=== PATIENT | male | born 2000 | race Caucasian/White ===

== ENCOUNTER 2024-03-14 14:02 | Emergency (ER) | payer OTHER, SELFPAY ==
[2024-03-14 14:27] VITALS: BP 139/78; PULSE 88; RESP 20; TEMP 37.1; O2SAT 99
--- NOTE | 2024-03-14 14:31 | ED.URI ---
HPI - URI/Sore Throat General Chief Complaint: Upper Respiratory Infection Stated Complaint: cough,congestion Time Seen by Provider: 03/14/24 14:48 Source: patient, RN notes reviewed and old records reviewed Mode of arrival: ambulatory Limitations: no limitations History of Present Illness HPI Narrative: 23-year-old male presents to the [facility] with complaints of runny nose, cough and congestion. Denies fevers, chest pain, shortness of breath. Patient reports symptoms started 6 days ago. Has taken Mucinex Onset (ago): day(s) (6) Treatments prior to arrival: cold medicine (Mucinex) Related Data Home Medications ?Medication ?Instructions ?Recorded ?Confirmed ?Last Taken ?Type amitriptyline 10 mg tablet 10 mg PO DAILY 03/14/24 Unknown History Allergies Allergy/AdvReac Type Severity Reaction Status Date / Time diphenhydramine (From AdvReac Intermediate RESTLESS Verified 03/14/24 14:45 Benadryl) Review of Systems Review of Systems: All systems reviewed & are unremarkable except as noted in HPI and below Constitutional: Constitutional: Reports no additional constitutional complaints ENT: Reports as per HPI and Reports nasal discharge Cardiovascular: Cardiovascular: Reports no additional cardiovascular complaints, Denies chest pain and Denies dyspnea Respiratory: Respiratory: Reports as per HPI, Denies chest congestion, Reports cough and Denies dyspnea Musculoskeletal: Musculoskeletal: Reports no additional musculoskeletal complaints Integumentary/Breasts: Skin/Breast: Reports system reviewed and no additional complaints, except as docu PMFSH Comments At the time of my signature, I reviewed and agree with the nursing past medical, surgical, social, and family history. There is no relevant family history pertinent to the patient complaint. Exam Const: General: cooperative, healthy appearing, comfortable, no acute distress, well developed, alert and well nourished Nutritional Appearance: well nourished Orientation/consciousness: patient oriented x3 Limitations: no limitations HENMT: Head: normal to inspection Ears: hearing grossly normal bilaterally, external ears normal, TM's normal bilaterally, EAC's normal, mastoids normal and no periauricular adenopathy Face/Nose/Sinus: Normal external nose present and Nasal discharge present clear bilateral Mouth: Yes Normal oral and palatal mucosa present, Yes lip normal, Yes tongue normal and Yes moist mucous membranes Throat: posterior oropharynx normal, uvula midline, postnasal drainage and no uvular edema Eyes: General: appearance normal, both eyes and all related structures Alignment and Position: alignment normal Neck: Neck: normal visual inspection, full ROM, no lymphadenopathy and no meningeal signs Chest: Chest palpation & inspection: normal inspection of the chest Resp: Effort & Inspection: normal respiratory effort and able to speak in complete sentences Auscultation: clear to auscultation bilaterally, no crackles, no rales, no rhonchi and no wheezes Cardio: Rate: regular rate Skin: General skin exam: normal color and no rashes or lesions noted Neuro: General: patient oriented x3, gait normal, moves all extremities and no meningeal signs Cognition (Neuro): normal cognition Speech: normal speech Gait exam (Neuro): Normal gait present Extrem: General: normal to inspection, full ROM, capillary refill normal and normal gait Psych: Appearance: grossly normal and well kempt Mental Status: mental status grossly normal Speech and movement: Normal speech and movement present and Clear speech present Affect: normal affect Attitude: cooperative Course Course Level of Care: Express Care Visit Vital Signs Vital signs: Vital Signs Temperature 98.8 F 03/14/24 14:27 Pulse Rate 88 03/14/24 14:27 Respiratory Rate 20 03/14/24 14:27 Blood Pressure 139/78 03/14/24 14:27 Pulse Oximetry 99 03/14/24 14:27 Oxygen Delivery Room Air 03/14/24 14:27 Temperature 98.8 F 03/14/24 14:27 Pulse Rate 88 03/14/24 14:27 Respiratory Rate 20 03/14/24 14:27 Blood Pressure 139/78 03/14/24 14:27 Pulse Oximetry 99 03/14/24 14:27 Oxygen Delivery Room Air 03/14/24 14:27 Reviewed MDM - URI/Sore Throat MDM Narrative Medical decision making narrative: Patient sitting exam room. , vitals stable. Patient in no acute distress. Patient presents with 6 day history of URI symptoms. No acute findings other than postnasal drainage noted on exam Patient appropriate for outpatient treatment and follow-up Discharge instructions reviewed with patient, as well as provided in writing per nursing staff. The instructions also include specific and strict return/GO TO THE ER as well as f/u information. All questions have been answered, and the patient deny any further questions with discharge and discharge plan. Some parts of this dictation were generated by voice recognition software and may contain typographical and/or grammatical inaccuracies. Differential Diagnosis Differential diagnosis: Likely upper respiratory infection, otitis media, sinusitis, viral infection and bronchitis Critical Care Time Critical Care Time Critical Care Time: No Discharge Plan Discharge Clinical Impression: Bronchitis, Post-nasal drainage Patient Disposition: Home, Self-Care Condition: Stable Instructions: Antibiotic Form, Acute Bronchitis (ED), Postnasal Drip (DC) Additional Instructions: Your symptoms are likely due to a viral illness, which is not treated with antibiotics. Typically viral infections last 7-10 days, can linger for couple of weeks. It is very important to treat your symptoms. Drink plenty of water, Gatorade, Pedialyte, ice pops or Jell-O. -Alternate Tylenol and Motrin per package directions for fever or pain. You can alternate every 4 hours -Antihistamine medication such as Zyrtec/Claritin/Marii during the day can help improve symptoms. -doing daily nasal irrigations can help relieve pressure your sinuses. Things like a Neti pot -Use Flonase twice a day for 5 days then daily to help reduce the inflammation and dry up your sinuses. -You can also use Mucinex. Be sure to drink plenty of water with this medication at least 8 ounces with every dose and it is important to drink 8 to 10 glasses of water per day. Water is a natural decongestant -Eat and drink things that are easy to swallow, like tea or soup, or popsicles. -Oral rinses such as: Salt water gargles and/or may use topical anesthetic (eg. Chloraseptic spray) or lozenges to relieve dryness or throat pain). -Frequent hand washing or hand medical reception specialist is one of the best ways to prevent spread of infection. -Using a vaporizer or humidifier at night will also help thin secretions and help with coughing up phlegm. -Follow up with primary care provider in 7-10 days if condition is not improving - For new or worsening symptoms go directly to the nearest ER Patient Language: [place] Prescriptions: New prednisone 20 mg tablet See Rx Instructions .Route .COMPLEX Qty: 9 0RF Rx Instructions: Take 40 mg daily for 3 days, 20 mg daily for 3 days No Action amitriptyline 10 mg tablet 10 mg PO DAILY Follow-up/Referrals: Maria Isabel,AVELINA Sequeira [Primary Care Provider] - 1 Week ([facility] follow-up) Stand Alone Forms: Work/School Release IP Time of Disposition: 15:03
--- OUTSIDE RECORDS SUMMARY | 2024-03-21 22:02 | XMS_ITS | Encounter Summary ---
Author Organization [facility] Address [address] [place] [address] Care Team Providers Care Endoscopy Specialty Technician Name Role Phone Laine Sharp MD Primary Care Provider [phone] Encounter Details Date Type Department Care Team (Latest Contact Info) Description 06/08/2019 Travel Social History Tobacco Use Types Packs/Day Years Used Date Smoking Tobacco: Never Smokeless Tobacco: Never Alcohol Use Standard Drinks/Week Comments No 0 (1 standard drink = 0.6 oz pur e alcohol) Sex and Gender Information Value Date Recorded Sex Assigned at Not on file Gender Identity Not on file Sexual Orientation Not on file COVID-19 Exposure Response Date Recorded In the last month, have you been in contact with someone who was confirmed or suspected to have Coronavirus / COVID-19? No / Unsure 06/08/2019 8:44 AM CDT documented as of this encounter Functional Status Functional Status Response Date of Assess ment Is person deaf or have serious hearing difficult y? No 04/10/2019 Is person blind or have serious difficulty seein g? No 04/10/2019 Does person have serious dif ficulty walking/climbing stairs? No 04/10/2019 Does person have difficulty dressing/bathing? No 04/10/2019 Does person have difficulty doing errands alone? No 04/10/2019 Cognitive Status Response Date of Assessm ent Does person have difficulty concentrating/remembering/making decisions? No 04/10/2019 documented as of this encounter Plan of Treatment Not on file documented as of this encounter Visit Diagnoses Not on filedocumented in this encounter Care Teams Endoscopy Specialty Technician Relationship Specialty Start Date End Date Laine Sharp MD [address] [place] [phone] PCP - General Pediatrics 12/31/13 documented as of this encounter
--- OUTSIDE RECORDS SUMMARY | 2024-03-21 22:02 | XMS_ITS | Encounter Summary ---
Author Organization [facility] Address [address] [place] [address] Care Team Providers Care Offender Job Retention Specialist Name Role Phone Laine Sharp MD Primary Care Provider [phone] Reason for Visit * Auth/Cert Specialty Diagnoses / Procedures Referred By Contlan t Referred To Contact Procedures ESOPHAGOGASTRODUODENOSCOPY (EGD) BIOPSY COLONOSCOPY BIOPSY (ANY METHOD) Referral ID Status Reason Start Date Expiration Date Visits Re quested Visits Authorized [id number] 1 1 Encounter Details Date Type Department Care Team (Latest Contact Info) Description 04/10/2019 12:30 PM STRUCTURES TECHNICIAN - 04/10/2019 1:30 PM STRUCTURES TECHNICIAN Surgery [facility] - Endoscopy [address] [place] [phone] Kenzie Cobb MD [address] [place] [id number] ESOPHAGOGASTRODUODENOSCOPY (EGD) BIOPSY Surgery Details Date/Time Status Location OR Service Patient Class Case Class Case Type Trauma Case? 04/10/2019 12:30 PM Posted [facility] Endo 03 Gastroenterology Surgery Day Care Elective > 5 days Panel 1 Procedure LRB Anes Op Region Wound Class Comments ESOPHAGOGASTRODUODENOSCOPY ( EGD) BIOPSY General Clean Contaminated COLONOSCOPY BIOPSY (ANY METHOD) General Clean Contaminated Surgeon Surgeon Role Service Panel Kenzie Cobb MD Primary Gastroenterology 1 Faith Quispe MD Gastroenterology 1 documented in this encounter Social History Tobacco Use Types Packs/Day Years Used Date Smoking Tobacco: Never Smokeless Tobacco: Never Alcohol Use Standard Drinks/Week Comments No 0 (1 standard drink = 0.6 oz pur e alcohol) Sex and Gender Information Value Date Recorded Sex Assigned at Not on file Gender Identity Not on file Sexual Orientation Not on file documented as of this encounter Last Filed Vital Signs Vital Sign Reading Time Taken Comments Blood Pressure 79/43 04/10/2019 1:30 PM STRUCTURES TECHNICIAN Pulse 52 04/10/2019 1:30 PM STRUCTURES TECHNICIAN Temperature 37.2 ??C (99 ??F) 04/10/2019 1:30 PM STRUCTURES TECHNICIAN Respiratory Rate 14 04/10/2019 1:30 PM STRUCTURES TECHNICIAN Oxygen Saturation 97% 04/10/2019 1:30 PM STRUCTURES TECHNICIAN Inhaled Oxygen Concentration - - Weight 69.5 kg (153 lb 3.5 oz) 04/10/2019 11:42 AM STRUCTURES TECHNICIAN Height 171.8 cm (5' 7.64 ) 04/10/2019 11:[address] Body Mass Index 23.55 04/10/2019 11:42 AM STRUCTURES TECHNICIAN documented in this encounter Functional Status Functional Status Response [...] No 04/10/2019 documented as of this encounter Discharge Summaries * Faith Quispe MD - 04/10/2019 1:30 PM CST Images from the original note were not included. 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 Discharge Procedure Orders Why you were hospitalized Order Specific Question Answer Comments Your discharge diagnosis is: Eosinophilic esophagitis [530.13.ICD-9-CM] Procedure information Lavelle had the following procedure performed: Colonoscopy and Esophagogastro duodenoscopy Order Specific Question Answer Comments Your discharge diagnosis is: Eosinophilic esophagitis [530.13.ICD-9-CM] Diet instructions Start light diet today (i.e soup, Jell-O, toast). If no nausea or vomiting, may resume normal diet.In case of nausea or vomiting, reduce diet to fluids low in acid (water, sports drinks, white sodas). As you are able to tolerate the fluids, gradually increase your diet. Activity as tolerated Rest today, and increase activity level tomorrow as tolerated. Recovering after your Uppder Endoscopy -- Lavelle's throat will probably be slightly sore today. This should go away within the next 24 hours. Use throat lozenges or cough drops to help ease the discomfort. -- Lavelle may notice small amounts of blood if he had polyps removed or tissue samples taken for biopsy. Recovering after Colonoscopy -- Lavelle may have some abdominal cramping or bloating. This is caused by the air that was insertedduring the colonoscopy, and should go away shortly after your procedure. -- Lavelle may notice small amounts of blood if he had polyps removed or tissue samples taken for biopsy. Biopsy Results Please allow 10-14 days for biopsy results to be finalized. When to call provider Call if you have questions or concerns, or for any of the following issues: -- increased shortness of breath -- for pain that gets worse or does not get better after taking pain medication(s) as directed -- if you see a lot of bleeding from the incision or IV site -- if the incision or IV site looks infected (red, swollen, warm to the touch, or non-clear, foul-smelling drainage) -- if Lavelle has nausea or vomiting or cannot eat or drink Follow up with provider Follow-Up: Lavelle is a 18 yo M with h/o eosinophilic gastrointestinal disease, previously resolved now with nausea and abdominal pain s/p repeat EGD and Colonoscopy with biopsies. Findings c/w EoE. Mild erythema in stomach and erosions in bulb. Continue PPI. Await pathology results. Faith Quispe M.D. Pediatric Gastroenterology Fellow 04/10/2019 1:30 PM CTURES TECHNICIAN Associated attestation - Kenzie Cobb MD - 04/10/2019 3:54 PM STRUCTURES TECHNICIAN I agree with fellow note. Kenzie Cobb MD documented in this encounter Medications at Time of Discharge Medication Sig Dispensed Refills Start Date End Date esomeprazole (NEXIUM) 40 MG capsule Take 1 capsule by mouth daily before breakfast 30 capsule 5 03/12/2019 fluticasone hfa 220 (FLOVENT HFA) 220 MCG/ACT inhalerIndications:Eos inophilic Esophagitis Take 2 puffs by mouth 2 times daily Swallow 2 puffs twice daily, rinse mouth with small amount of water after. Reasons: Eosinophilic Esophagitis 1 Inhaler 6 05/12/2019 documented as of this encounter H&P Notes * Faith Quispe MD - 04/10/2019 11:31 AM CST Surgical History and Physical Today's Date: 04/10/2019 Lavelle Michael 18 year old male Date of Service: 04/10/2019 Planned Procedure: Upper endoscopy and Colonoscopy with biopsies Indication for Procedure: follow-up Eosinophilic GI disease (EoE and enterocolitis); abdominal painand nausea History of Present Illness Lavelle is a 18 yo male with history of eosinophilic GI disease, previously with normal scopes and resolution of symptoms, who presented with new onset nausea and abdominal pain to GI clinic. He is here for repeat EGD and Colonoscopy with biopsies. Nausea better over past 2 weeks. He is on PPI, but no other therapies. See GI notes for further details. Past Medical History: Diagnosis Date ??? Abdominal pain, diarrhea, emesis 11/09/2011 admitted hosp 3-4 week hx ??? ADHD (attention deficit hyperactivity disorder) on adderall and vyvanse ??? Eosinophilia 11/10/2011 ??? Unspecified asthma dx 2004 exercise induced asthma--uses albuterol prn--last used 06/2011--never hosp last ER visit 2008 Past Surgical History: Procedure Laterality Date ??? BONE MARROW BIOPSY 11/16/2011 Right; BONE MARROW BIOPSY- WAS OK ??? COLONOSCOPY WITH BIOPSY nov 2011 dx with EE/ R/o IBS ??? COLONOSCOPY WITH BIOPSY 05/05/2012 COLONOSCOPY BIOPSY ??? COLONOSCOPY WITH BIOPSY 02/20/2013 COLONOSCOPY BIOPSY ??? COLONOSCOPY WITH BIOPSY 01/22/2014 COLONOSCOPY BIOPSY ??? COLONOSCOPY WITH BIOPSY 11/16/2016 COLONOSCOPY BIOPSY ??? ENDOSCOPY, UPPER 02/20/2013 ENDOSCOPY GI UPPER WITH BIOPSY ??? ENDOSCOPY, UPPER 01/22/2014 ENDOSCOPY GI UPPER WITH BIOPSY ??? ENDOSCOPY, UPPER 10/01/2016 ENDOSCOPY GI UPPER WITH BIOPSY ??? Orchiopexy 11/27/2002 -Dr Beaver ??? [place] EGD FLEX TRANSORAL W BX SNGL OR MULT NOV 2011 dx with EE Family History Problem Relation Name Age of Onset ??? GERD - Gastroesophageal Reflux Disease Father ??? Esophagitis Sister EoE Social History Occupational History ??? Not on file Tobacco Use ??? Smoking status: Never Smoker ??? Smokeless tobacco: Never Used Substance and Sexual Activity ??? Alcohol use: No ??? Drug use: No ??? Sexual activity: Not on file Medications Prior to Admission Medication Sig Dispense Refill ??? esomeprazole (NEXIUM) 40 MG capsule Take 1 capsule by mouth daily before breakfast 30 capsule 5 Allergies Allergen Reactions ??? Other CLEAR TAPE CAUSED IRRITATION. PLEASE USE CLOTH TAPE Review of Systems Negative for respiratory distress, lethargy, vomiting. Exam There were no vitals filed for this visit. General: Healthy, alert, well nourished Head: Normocephalic, atraumatic Eyes: No scleral icterus, no injection Mouth: Moist mucus membranes, no oral ulcers Neck: No lymphadenopathy Heart: Regular rate and rhythm Lungs: Equal breath sounds Abdomen: nondistended Extremities: warm and well perfused, no joint swelling Neuro: No facial asymmetry, normal tone Data Recent Labs Component Name 10/01/16 1400 05/26/12 1524 05/05/12 0841 WBC 6.6 10.6 5.2 HGB 14.6 13.6 14.6 HCT 41.4 38.3 41.3 PLTCOUNT 252 272 250 Recent Labs Component Name 10/01/16 1400 01/09/12 1725 11/15/11 1652 SODIUM 140 138 139 POTASSIUM 4.0 3.7 3.8 CHLORIDE 106 106 109* CO2 24 21 20 BUN 10.5 6.3 5.1* CREATININE 0.89 0.60* 0.50* GLUCOSE 93 84 103 CALCIUM 8.83* 10.07 8.76* No results for input(s): INR in the last 64864 hours. No results for input(s): PTT in the last 78725 hours. 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 Risks, benefits and alternatives discussed with the patient, questions answered. Plan to perform above noted procedure. Faith Quispe M.D. Pediatric Gastroenterology Fellow CTURES TECHNICIAN Associated attestation - Kenzie Cobb MD - 04/10/2019 3:55 PM STRUCTURES TECHNICIAN I agree with fellow note. Kenzie Cobb MD documented in this encounter Plan of Treatment Not on file documented as of this encounter Procedures Procedure Name Priority Date/Time Associated Diagnosis Comments PATHOLOGY TISSUE EXAM (STL) STAT 04/10/2019 12:55 PM STRUCTURES TECHNICIAN Eosinophilic esophagitis HELICOBACTER PYLORI UREASE (STL) STAT 04/10/2019 12:47 PM STRUCTURES TECHNICIAN Eosinophilic gastroenteritis and colitis Eosinophilic esophagitis KS COLONOSCOPY,BIOPSY 04/10/2019 12:38 PM STRUCTURES TECHNICIAN KS EGD FLEX TRANSORAL W BX SNGL OR MULT 04/10/2019 12:38 PM STRUCTURES TECHNICIAN CBC W AUTO DIFFERENTIAL STAT 04/10/2019 12:00 PM STRUCTURES TECHNICIAN Eosinophilic gastroenteritis and colitis Eosinophilic esophagitis COMPREHENSIVE METABOLIC PANEL STAT 04/10/2019 12:00 PM STRUCTURES TECHNICIAN Eosinophilic gastroenteritis and colitis Eosinophilic esophagitis LIPASE BLOOD STAT 04/10/2019 12:00 PM STRUCTURES TECHNICIAN Eosinophilic gastroenteritis and colitis Eosinophilic esophagitis EGD Routine 04/10/2019 11:47 AM STRUCTURES TECHNICIAN Eosinophilic gastroenteritis and colitis Eosinophilic esophagitis ENDOSCOPY, COLON, DIAGNOSTIC Routine 04/10/2019 11:46 AM STRUCTURES TECHNICIAN 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 Case: [id number] ? Authorizing Provider: ??Kenzie Cobb MD ?Collected: ? 04/10/2019 12:55 PM ? Ordering Location: ? [facility] ?Received: ?04/10/2019 02:35 PM ? Pathologist: ? Caridad Otto MD ? Specimens: ?? A) - Duodenal Biopsy ? B) - Stomach Biopsy ? C) - Esophageal Biopsy, distal ? D) - Esophageal Biopsy, mid ? E) - Ileum Terminal ? F) - Colon Biopsy ? G) - Rectosigmoid Biopsy ? H) - Polyp Rectal ? 04/13/2019 5:42 PM STRUCTURES TECHNICIAN [facility] Final Diagnosis Small intestine, duodenum, biopsy (A): - Mild peptic duodenitis - Intact villous and crypt architecture without increased intraepithelial lymphocytes ?? Stomach, biopsy (B): - Mild chronic gastritis - No active inflammation or H. pylori organisms (H&E examination) ?? Esophagus, distal, biopsy (C): - Mild esophagitis with marked increased intraepithelial eosinophils (>50/hpf) Esophagus, mid, biopsy (D): - Mild esophagitis with marked increased intraepithelial eosinophils (>50/hpf) ? Small intestine, terminal ileum, biopsy (E): - No histopathologic abnormality ? Large intestine, colon, biopsy (F): - No histopathologic abnormality ?? Large intestine, rectosigmoid, biopsy (G): - No histopathologic abnormality Large intestine, rectal polyp, biopsy (H): - Hyperplastic polyp 04/13/2019 5:42 PM [facility] Clinical History The patient is a 18-year-old young man with eosinophilic esophagitis who underwent upper endoscopy and colonoscopy. The findings were scattered erosions of the duodenal bulb, scattered gastric erythema, and mild esophageal linear furrows, and a rectal polyp. 04/13/2019 5:42 PM [facility] Gross Description The specimens are received fixed in formalin in eight containers for gross and microscopic examination. All containers are labeled with the patient? s name, Lavelle Michael. Specimen A, duodenal biopsy, consists of four soft, yellow-santizo tissue fragments, 3 mm to 4 mm in greatest dimension. The specimen is submitted in toto as A1. Specimen B, stomach biopsy, consists of two soft, yellow-santizo tissues fragments, 3 mm to 4 mm in greatest dimension. The specimen is submitted in toto as B1. Specimen C, distal esophageal biopsy, consists of two 4 mm soft, allen-pink tissue fragments submitted in toto as C1. Specimen D, mid esophageal biopsy, consists of five soft, allen-white tissue fragments, 1 mm to 3 mm in greatest dimension. The specimen is submitted in toto as D1. Specimen E, terminal ileum, consists of four soft, yellow-santizo tissue fragments, 3 mm to 5 mm in greatest dimension. The specimen is submitted in toto as E1. Specimen F, colon biopsy, consists of eight soft, yellow-santizo tissue fragments, 2 mm to 5 mm in greatest dimension. The specimen is submitted in toto as F1. Specimen G, rectosigmoid biopsy, consists of two soft, pink-santizo tissue fragments, 2 mm and 3 mm in greatest dimension. The specimen is submitted in toto as G1. Specimen H, rectal polyp, consists of two 2 mm soft, yellow-santizo tissue fragments submitted in toto as H1. (CT/na) 04/13/2019 5:42 PM [facility] Microscopic Description 24 H&E slides examined. Microscopic examination substantiates the final diagnosis. 04/13/2019 5:42 PM [facility] Disclaimer The performance characteristics of all immunohistochemical and indirect immunofluorescence stains (if any) cited in this report were determined by the Histopathology Laboratory of [facility] in compliance with Clinical Laboratory Improvement Amendments of 1988 (CLIA'88) regulations. Some of these tests rely on the use of analyte-specific reagents and are subject to specific labeling requirements by the U.S. Food and Drug Administration (FDA). Such tests were developed by the [facility] of [facility] and have not been cleared or approved by the FDA. The FDA has determined that such clearance or approval is not necessary. These tests are used for clinical purposes and should not be regarded as investigational or for research. This case has been personally reviewed and interpreted by the attending (teaching) pathologist. The interpretation of this case is performed by [facility]ology at [facility], [address] [place] [id number]. 04/13/2019 5:42 PM [facility] Embedded Images 04/13/2019 5:42 PM [facility] Pathology/Cytology DUODENAL BIOPSY SPECIMEN / Unknown 04/10/2019 12:55 PM STRUCTURES TECHNICIAN 04/10/2019 2:35 PM STRUCTURES TECHNICIAN Miscellaneous samples (specimen) BIOPSY OF STOMACH / Unknown 04/10/2019 12:55 PM STRUCTURES TECHNICIAN 04/10/2019 2:35 PM STRUCTURES TECHNICIAN Miscellaneous samples (specimen) ESOPHAGEAL BIOPSY SPECIMEN / Unknown 04/10/2019 12:55 PM STRUCTURES TECHNICIAN 04/10/2019 2:35 PM STRUCTURES TECHNICIAN Miscellaneous samples (specimen) ESOPHAGEAL BIOPSY SPECIMEN / Unknown 04/10/2019 1:01 PM STRUCTURES TECHNICIAN 04/10/2019 2:35 PM STRUCTURES TECHNICIAN Miscellaneous samples (specimen) TERMINAL ILEUM RESECTION SPECIMEN / Unknown 04/10/2019 1:18 PM STRUCTURES TECHNICIAN 04/10/2019 2:35 PM STRUCTURES TECHNICIAN Miscellaneous samples (specimen) COLONIC BIOPSY SPECIMEN / Unknown 04/10/2019 1:18 PM STRUCTURES TECHNICIAN 04/10/2019 2:35 PM STRUCTURES TECHNICIAN Miscellaneous samples (specimen) RECTOSIGMOID STRUCTURE / Unknown 04/10/2019 1:22 PM STRUCTURES TECHNICIAN 04/10/2019 2:35 PM STRUCTURES TECHNICIAN Miscellaneous samples (specimen) RECTAL POLYP / Unknown 04/10/2019 1:23 PM STRUCTURES TECHNICIAN 04/10/2019 2:35 PM STRUCTURES TECHNICIAN Kenzie Cobb MD LAB - PATHOLOGY/CYTO LOGY ORDERABLES Performing Organization Address [facility] Co de Phone Number [facility] [address] [place] [address] [facility] [address] [place], [place] [address] [phone] * HELICOBACTER PYLORI UREASE (STL) (04/10/2019 12:47 PM STRUCTURES TECHNICIAN) Helicobacter pylori Urease Initial Negative Negative 04/11/2019 1:33 PM STRUCTURES TECHNICIAN [facility] Helicobacter pylori Urease Final Negative Negative 04/11/2019 1:33 PM STRUCTURES TECHNICIAN [facility] Comment:This is an appended report. These results have been appended to a previously preliminary verified report. Microbiology GASTRIC ANTRAL BIOPSY SPECIMEN / Unknown Collection / Unknown 04/10/2019 12:47 PM STRUCTURES TECHNICIAN 04/10/2019 1:11 PM STRUCTURES TECHNICIAN Faith Quispe MD LAB - MICROBIOLOG Y ORDERABLES Performing Organization Address [facility] Co de Phone Number [facility] [address] [place] [address] * LIPASE BLOOD (04/10/2019 12:00 PM STRUCTURES TECHNICIAN) Lipase 16 10 - 220 U/L 04/10/2019 12:56 PM STRUCTURES TECHNICIAN [facility] Blood BLOOD SPECIMEN / Unknown Venipuncture / Unknown 04/10/2019 12:00 PM STRUCTURES TECHNICIAN 04/10/2019 12:20 PM STRUCTURES TECHNICIAN Faith Quispe MD LAB - CHEMISTRY O RDERABLES Performing Organization Address [facility] Co de Phone Number [facility] [address] [place] [phone] * (ABNORMAL) COMPREHENSIVE METABOLIC PANEL (04/10/2019 12:00 PM STRUCTURES TECHNICIAN) Glucose 77 70 - 105 mg/dL 04/10/2019 12:56 PM STRUCTURES TECHNICIAN [facility] Sodium 138 136 - 145 mmol/L 04/10/2019 12:56 PM [facility] Potassium 4.3 3.5 - 5.1 mmol/L 04/10/2019 12:56 PM [facility] Chloride 105 98 - 107 mmol/L 04/10/2019 12:56 PM [facility] CO2 25 22 - 29 mmol/L 04/10/2019 12:56 PM [facility] Calcium 10.13 9.08 - 10.48 mg/dL 04/10/2019 12:56 PM [facility] Anion Gap 8 5 - 20 mmol/L 04/10/2019 12:56 PM [facility] BUN 14.2 5.3 - 18.7 mg/dL 04/10/2019 12:56 PM [facility] Creatinine 1.15(H) 0.61 - 1.07 mg/dL 04/10/2019 12:56 PM [facility] Alkaline Phosphatase 62 39 - 139 U/L 04/10/2019 12:56 PM [facility] ALT 17 6 - 46 U/L 04/10/2019 12:56 PM [facility] AST 19 8 - 42 U/L 04/10/2019 12:56 PM [facility] Protein Total 7.6 6.3 - 8.2 gm/dL 04/10/2019 12:56 PM [facility] Albumin 4.8 3.3 - 4.9 gm/dL 04/10/2019 12:56 PM [facility] Bilirubin Total 1.1 0.3 - 1.2 mg/dL 04/10/2019 12:56 PM [facility] eGFR by MDRD >60 >60 mL/min/1.7 3m2 04/10/2019 12:56 PM [facility] eGFR by MDRD >60 >60 mL/min/1.7 3m2 04/10/2019 12:56 PM [facility] Blood BLOOD SPECIMEN / Unknown Venipuncture / Unknown 04/10/2019 12:00 PM [facility] 04/10/2019 12:20 PM [facility] Faith Quispe MD LAB - CHEMISTRY O RDERABLES Performing Organization Address City/State/[facility] Co de Phone Number [facility] [address] [place] [address] * (ABNORMAL) CBC W AUTO DIFFERENTIAL (04/10/2019 12:00 PM [facility]) WBC 5.6 4.4 - 10.7 x10E9/L 04/10/2019 12:26 PM [facility] WBC Corrected 04/10/2019 12:26 PM [facility] RBC 5.60(H) 3.80 - 5.40 x10E12/L 04/10/2019 12:26 PM [facility] Hemoglobin 17.0 12.0 - 17.6 gm/dL 04/10/2019 12:26 PM [facility] Hematocrit 49.2 35.2 - 51.7 % 04/10/2019 12:26 PM [facility] MCV 87.9 80.7 - 98.3 fl 04/10/2019 12:26 PM [facility] MCH 30.4 26.7 - 34.0 pg 04/10/2019 12:26 PM [facility] MCHC 34.6 30.8 - 35.9 gm/dL 04/10/2019 12:26 PM [facility] Platelet Count 254 153 - 416 x10E9/L 04/10/2019 12:26 PM [facility] RDW-CV 12.0(L) 12.1 - 14.9 % 04/10/2019 12:26 PM [facility] MPV 9.6 9.4 - 12.9 fl 04/10/2019 12:26 PM [facility] Neutrophils % 47.8 44.0 - 73.0 % 04/10/2019 12:26 PM [facility] Lymphocytes % 32.4 20.0 - 43.0 % 04/10/2019 12:26 PM [facility] Monocytes % 6.4 5.0 - 13.0 % 04/10/2019 12:26 PM [facility] Eosinophils % 12.7(H) 0.0 - 6.0 % 04/10/2019 12:26 PM [facility] Basophils % 0.5 0.0 - 2.0 % 04/10/2019 12:26 PM [facility] Immature Granulocytes 0.2 0 - 1 % 04/10/2019 12:26 PM [facility] Neutrophil Absolute 2.67 2.01 - 7.14 x10E9/L 04/10/2019 12:26 PM [facility] Lymphocytes Absolute 1.81 1.07 - 3.94 x10E9/L 04/10/2019 12:26 PM [facility] Monocytes Absolute 0.36 0.26 - 1.07 x10E9/L 04/10/2019 12:26 PM [facility] Eosinophils Absolute 0.71(H) 0 - 0.47 x10E9/L 04/10/2019 12:26 PM [facility] Basophils Absolute 0.03 0 - 0.08 x10E9/L 04/10/2019 12:26 PM [facility] Immature Granulocytes Absolute 0.01 0.00 - 0.06 x10E9/L 04/10/2019 12:26 PM [facility] nRBC Auto 0 /100 WBC 04/10/2019 12:26 PM [facility] Blood BLOOD SPECIMEN / Unknown Venipuncture / Unknown 04/10/2019 12:00 PM STRUCTURES TECHNICIAN 04/10/2019 12:20 PM [facility] Faith Quispe MD LAB - HEMATOLOGY ORDERABLES Performing Organization Address [facility]/State/[facility] Co de Phone Number [facility] [place] [address] * EGD (04/10/2019 11:47 AM STRUCTURES TECHNICIAN) Report Endoscopy POC _ Patient Name: Lavelle Wells ? Date of : 2000 ?Admit Type: Outpatient Age: 18 ? Gender: Male Race: White ? Attending MD: Kenzie Cobb , Order #: [id number] ? _ Procedure: ? Upper GI endoscopy Indications: ? Follow-up of eosinophilic esophagitis, Follow-up of ? eosinophilic gastroenteritis, Nausea Providers: ? Kenzie Cobb Referring MD: ?Laine Sharp MD Medicines: ? Monitored Anesthesia Care Complications: ? No immediate complications. _ Procedure: ? After obtaining informed consent, the endoscope was passed ? under direct vision. Throughout the procedure, the ? patient's blood pressure, pulse, and oxygen saturations ? were monitored continuously. The Endoscope was introduced ? through the mouth, and advanced to the third part of ? duodenum. The upper GI endoscopy was accomplished without ? difficulty. The patient tolerated the procedure well. Findings: ? Mucosal changes including longitudinal furrows and congestion (edema) ? were found in the entire esophagus. Biopsies were taken with a cold ? forceps for histology. ? Patchy mildly erythematous mucosa without bleeding was found in the ? entire examined stomach. Biopsies were taken with a cold forceps for ? histology. Biopsies were taken with a cold forceps for Helicobacter ? pylori testing using a rapid urease test. ? A few localized erosions without bleeding were found in the duodenal ? bulb. Biopsies were taken with a cold forceps for histology. ? The exam of the duodenum was otherwise normal. Impression: ?- Esophageal mucosal changes consistent with eosinophilic ? esophagitis. Biopsied. ? - Erythematous mucosa in the stomach. Biopsied. ? - Erosive duodenopathy without bleeding. Biopsied. Recommendation: ?- Await pathology results. ? - Discharge patient to home (with parent). ? - Advance diet as tolerated. ? - Continue present medications. ? - Colonoscopy today ? Procedure Code(s): ? --- Professional --- ? 66704, Esophagogastroduod enoscopy, flexible, transoral; with biopsy, ? single or multiple ? --- Technical --- ? 52589, Esophagogastroduod enoscopy, flexible, transoral; with biopsy, ? single or multiple Diagnosis Code(s): ? --- Professional --- ? K22.8, Other specified diseases of esophagus ? K31.89, Other diseases of stomach and duodenum ? K20.0, Eosinophilic esophagitis ? K52.81, Eosinophilic gastritis or gastroenteritis ? R11.0, Nausea ? --- Technical --- ? K22.8, Other specified diseases of esophagus ? K31.89, Other diseases of stomach and duodenum ? K20.0, Eosinophilic esophagitis ? K52.81, Eosinophilic gastritis or gastroenteritis ? R11.0, Nausea CPT copyright 2017 [employer]. All rights reserved. The codes documented in this report are preliminary and upon calculus tutor review may be revised to meet current compliance requirements. Dr. Kenzie Cobb Kenzie Cobb, 04/10/2019 1:59:08 PM This report has been signed electronically. Number of Addenda: 0 Note Initiated On: 04/07/2019 11:47 AM Procedure Date: ? 04/10/2019 11:47:00 AM ? This report has been signed electronically. [facility] 04/10/2019 11:4 7 AM STRUCTURES TECHNICIAN Faith Quispe MD GI PROCEDURE RICHIE ROBINS [facility] [address] [facility] [place] [address] * ENDOSCOPY, COLON, DIAGNOSTIC (04/10/2019 11:46 AM STRUCTURES TECHNICIAN) Report Endoscopy POC _ Patient Name: Lavelle Wells ? Date of : 2000 ?Admit Type: Outpatient Age: 18 ? Gender: Male Race: White ? Attending MD: Kenzie Cobb , Order #: [id number] ? _ Procedure: ? Colonoscopy Indications: ? 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 Kenzie Cobb MD (attending); Faith Quispe MD ? (fellow) Referring MD: ?Laine Sharp MD Medicines: ? Monitored Anesthesia Care Complications: ? No immediate complications. _ Procedure: ? After I obtained informed consent, the scope was passed ? under direct vision. Throughout the procedure, the ? patient's blood pressure, pulse, and oxygen saturations ? were monitored continuously. The Colonoscope was ? introduced through the anus and advanced to the terminal ? ileum. The colonoscopy was performed without difficulty. ? The patient tolerated the procedure well. The quality of ? the bowel preparation was fair. Findings: ? The perianal and digital rectal examinations were normal. ? The colon (entire examined portion) appeared normal. Biopsies were taken ? with a cold forceps for histology. ? The terminal ileum appeared normal. Biopsies were taken with a cold ? forceps for histology. ? A diminutive polyp was found in the rectum. The polyp was sessile. ? Biopsies were taken with a cold forceps for histology. Impression: ?- Preparation of the colon was fair. ? - The entire examined colon is normal. Biopsied. ? - The examined portion of the ileum was normal. Biopsied. Recommendation: ?- Discharge patient to home (with parent). ? - Advance diet as tolerated. ? - Continue present medications. ? - Await pathology results. ? Procedure Code(s): ? --- Professional --- ? 72976, Colonoscopy, flexible; with biopsy, single or multiple ? --- Technical --- ? 48163, Colonoscopy, flexible; with biopsy, single or multiple Diagnosis Code(s): ? --- Professional --- ? R10.84, Generalized abdominal pain ? K52.9, Noninfective gastroenteritis and colitis, unspecified ? --- Technical --- ? R10.84, Generalized abdominal pain ? K52.9, Noninfective gastroenteritis and colitis, unspecified CPT copyright 2017 [employer]. All rights reserved. The codes documented in this report are preliminary and upon calculus tutor review may be revised to meet current compliance requirements. Dr. Kenzie Cobb Kenzie Cobb, 04/10/2019 1:59:34 PM This report has been signed electronically. Number of Addenda: 0 Note Initiated On: 04/07/2019 11:46 AM Procedure Date: ? 04/10/2019 11:46:00 AM ? This report has been signed electronically. [facility] 04/10/2019 11:4 6 AM STRUCTURES TECHNICIAN Faith Quispe MD GI PROCEDURE [facility] ROBINS [facility] [address] [place] [address] documented in this encounter Visit Diagnoses Not on filedocumented in this encounter Administered Medications Inactive Administered Medications - up to 3 most recent administrations Medication Order MAR Action Action Date Dose Rate Site acetaminophen (TYLENOL) tablet 650 mg 650 mg, Oral, EVERY 6 HOURS PRN, Mild Pain, Starting on Sat04/10/19 at 1341, Until Sat04/10/19 at 1543, PACU diphenhydrAMINE (BENADRYL) injection 12.5 mg 12.5 mg, Intravenous, EVERY 6 HOURS PRN, Itching, Nausea/Vomiting, Starting on Sat04/10/19 at 1341, Until Sat04/10/19 at 1543, Max dose: 50 mg, PACU isolyte-S pH 7.4 infusion at 75 mL/hr, Intravenous, CONTINUOUS, Starting on Sat04/10/19 at 1230, Until Sat04/10/19 at 1543 $ New Bag/Syringe 04/10/2019 12:15 PM STRUCTURES TECHNICIAN 75 mL/hr isolyte-S pH 7.4 infusion at 100 mL/hr, Intravenous, POST-OP CONTINUOUS, Starting on Sat04/10/19 at 1345, Until Sat04/10/19 at 1543, PACU $ New Bag/Syringe 04/10/2019 1:50 PM STRUCTURES TECHNICIAN 100 mL/hr *Current Bag - New Order 04/10/2019 1:30 PM STRUCTURES TECHNICIAN 100 mL/hr documented in this encounter Active and Recently Administered Medications Times are shown in STRUCTURES TECHNICIAN. Continuous Medication Order 04/08/2019 04/09/2019 04/10/2019 isolyte-S pH 7.4 infusion at 75 mL/hr, Intravenous, CONTINUOUS, Starting on Sat04/10/19 at 1230, Until Sat04/10/19 at 1543 1215 ($ New Bag/Syri nge - Provider: Edel Munoz RN) isolyte-S pH 7.4 infusion at 100 mL/hr, Intravenous, POST-OP CONTINUOUS, Starting on Sat04/10/19 at 1345, Until Sat04/10/19 at 1543, PACU 1330 (*Current Bag - New Order - Provider: Kathleen Queen RN)1350 ($ New Bag/Syringe - Provider: Kathleen Queen, MARGARET)1405 (Stopped - Provider: Kathleen Queen RN) PRN Medication Order 04/08/2019 04/09/2019 04/10/2019 acetaminophen (TYLENOL) tablet 650 mg 650 mg, Oral, EVERY 6 HOURS PRN, Mild Pain, Starting on Sat04/10/19 at 1341, Until Sat04/10/19 at 1543, PACU diphenhydrAMINE (BENADRYL) injection 12.5 mg 12.5 mg, Intravenous, EVERY 6 HOURS PRN, Itching, Nausea/Vomiting, Starting on Sat04/10/19 at 1341, Until Sat04/10/19 at 1543, Max dose: 50 mg, PACU documented in this encounter Care Teams Offender Job Retention Specialist Relationship Specialty Start Date End Date Laine Sharp MD [address] [address] PCP - General Pediatrics 12/31/13 documented as of this encounter
--- OUTSIDE RECORDS SUMMARY | 2024-03-21 22:02 | XMS_ITS | Patient Health Summary ---
Author Organization [facility] Address [address] [place] [address] Care Team Providers Care Project Coordinator Name Role Phone Laine Sharp MD Primary Care Provider [phone] Note from [facility],non-owned Affiliates and Associated Physician Practices is amultiple site organization consisting of ambulatory clinics and hospital sitesin [place], [place], [place] and [place]. This disclosure is being madepursuant to the Care Everywhere program and may not contain all information available regarding this patient. Last updated 17.[facility] Allergies * Other(CLEAR TAPE CAUSED IRRITATION. PLEASE USE CLOTH TAPE) * Eggs(Other),Inactive * Milk Protein,Inactive * Peanut-Derived,Inactive * Wheat,Inactive Medications * Be aware that medications may not be up to date on this document. Alwaysverify current medications with the patient. * esomeprazole (NEXIUM) 40 MG capsule(Started 03/12/2019) Take 1 capsule by mouth daily before breakfast 5 refills by 03/11/2020 * fluticasone hfa 220 (FLOVENT HFA) 220 MCG/ACT inhaler(Started 05/12/2019) Take 2 puffs by mouth 2 times daily Swallow 2 puffs twice daily, rinse mouth with small amount of water after. Reasons: Eosinophilic Esophagitis 6 refills by 05/11/2020 Active Problems Problem Noted Date Diagnosed Date Abnormal weight loss 11/16/2016 Rectal polyp 11/16/2016 Eczema 02/12/2012 Allergic rhinitis 02/12/2012 Food allergy 02/12/2012 Eosinophilia 11/10/2011 EE (eosinophilic esophagitis ) and Eosinophilic Enterocolitis 11/09/2011 ADHD (attention deficit hyperactivity disorder) 11/09/2011 Resolved Problems Problem Noted Date Diagnosed Date Resolved Date History of asthma 10/17/2016 10/17/2016 Flushing 11/13/2011 02/12/2012 Social History Tobacco Use Types Packs/Day Years Used Date Smoking Tobacco: Never Smokeless Tobacco: Never Alcohol Use Standard Drinks/Week Comments No 0 (1 standard drink = 0.6 oz pur e alcohol) Sex and Gender Information Value Date Recorded Sex Assigned at Not on file Gender Identity Not on file Sexual Orientation Not on file Last Filed Vital Signs Vital Sign Reading Time Taken Comments Blood Pressure 110/64 04/10/2019 2:15 PM SUPPORT SERVICES MANAGER Pulse 64 04/10/2019 2:00 PM SUPPORT SERVICES MANAGER Temperature 37.2 ??C (99 ??F) 04/10/2019 1:30 PM SUPPORT SERVICES MANAGER Respiratory Rate 16 04/10/2019 2:15 PM SUPPORT SERVICES MANAGER Oxygen Saturation 98% 04/10/2019 2:15 PM SUPPORT SERVICES MANAGER Inhaled Oxygen Concentration 100% 01/22/2014 1 0:13 AM SUPPORT SERVICES MANAGER Weight 69.5 kg (153 lb 3.5 oz) 04/10/2019 11:42 AM SUPPORT SERVICES MANAGER Height 171.8 cm (5' 7.64 ) 04/10/2019 11:[address] Body Mass Index 23.55 04/10/2019 11:42 AM SUPPORT SERVICES MANAGER Procedures * PATHOLOGY TISSUE EXAM (STL)(Performed 04/10/2019) Performed for Eosinophilic esophagitis * HELICOBACTER PYLORI UREASE (STL)(Performed 04/10/2019) Performed for Eosinophilic gastroenteritis and colitis, Eosinophilic esophagitis * NV COLONOSCOPY,BIOPSY(Performed 04/10/2019) * NV EGD FLEX TRANSORAL W BX SNGL OR MULT(Performed 04/10/2019) * LIPASE BLOOD(Performed 04/10/2019) Performed for Eosinophilic gastroenteritis and colitis, Eosinophilic esophagitis * COMPREHENSIVE METABOLIC PANEL(Performed 04/10/2019) Performed for Eosinophilic gastroenteritis and colitis, Eosinophilic esophagitis * CBC W AUTO DIFFERENTIAL(Performed 04/10/2019) Performed for Eosinophilic gastroenteritis and colitis, Eosinophilic esophagitis * EGD(Performed 04/10/2019) Performed for Eosinophilic gastroenteritis and colitis, Eosinophilic esophagitis * ENDOSCOPY, COLON, DIAGNOSTIC(Performed 04/10/2019) Performed for Eosinophilic gastroenteritis and colitis, Eosinophilic esophagitis * PATHOLOGY TISSUE EXAM (STL)(Performed 11/16/2016) Performed for Abdominal pain, unspecified location * COLONOSCOPY BIOPSY (ANY METHOD)(Performed 11/16/2016) Performed for Abdominal pain, unspecified location * ENDOSCOPY, COLON, DIAGNOSTIC(Performed 11/16/2016) Performed for Eosinophilic colitis * COMPREHENSIVE METABOLIC PANEL(Performed 10/01/2016) Performed for EE (eosinophilic esophagitis) * CBC W AUTO DIFFERENTIAL(Performed 10/01/2016) Performed for EE (eosinophilic esophagitis) * HELICOBACTER PYLORI UREASE (STL)(Performed 10/01/2016) Performed for EE (eosinophilic esophagitis) * PATHOLOGY TISSUE EXAM (STL)(Performed 10/01/2016) Performed for EE (eosinophilic esophagitis) * ESOPHAGOGASTRODUODENOSCOPY (EGD) BIOPSY(Performed 10/01/2016) Performed for EE (eosinophilic esophagitis) * EGD(Performed 10/01/2016) Performed for EE (eosinophilic esophagitis) and Eosinophilic Enterocolitis * ESOPHAGOGASTRODUODENOSCOPY (EGD) BIOPSY(Performed 01/22/2014) Performed for Abdominal pain, unspecified site * COLONOSCOPY BIOPSY (ANY METHOD)(Performed 01/22/2014) Performed for Abdominal pain, unspecified site * PATHOLOGY TISSUE EXAM (STL)(Performed 01/22/2014) * EGD(Performed 01/22/2014) Performed for EE (eosinophilic esophagitis) and Eosinophilic Enterocolitis, Eosinophilia * ENDOSCOPY, COLON, DIAGNOSTIC(Performed 01/22/2014) Performed for EE (eosinophilic esophagitis) and Eosinophilic Enterocolitis, Eosinophilia * PATHOLOGY/CYTOLOGY REPORT ORDER(Performed 02/24/2013) * ESOPHAGOGASTRODUODENOSCOPY (EGD) BIOPSY(Performed 02/20/2013) Performed for EE (eosinophilic esophagitis) * COLONOSCOPY BIOPSY (ANY METHOD)(Performed 02/20/2013) Performed for EE (eosinophilic esophagitis) * PATHOLOGY TISSUE EXAM (STL)(Performed 02/20/2013) Performed for Diarrhea, Abdominal pain, generalized, EE (eosinophilic esophagitis) and EosinophilicEnterocolitis, ADHD (attention deficit hyperactivity disorder), Eosinophilia, Eczema, Allergic rhinitis, Food allergy * ENDOSCOPY, COLON, DIAGNOSTIC(Performed 02/20/2013) Performed for Diarrhea, Abdominal pain, generalized * EGD(Performed 02/20/2013) Performed for Diarrhea, Abdominal pain, generalized * TRANSFERRIN(Performed 05/26/2012) Performed for Eosinophilia * IRON + TIBC PANEL(Performed 05/26/2012) Performed for Eosinophilia * DIFFERENTIAL MANUAL(Performed 05/26/2012) Performed for Eosinophilia * ERYTHROCYTE SEDIMENTATION RATE(Performed 05/26/2012) Performed for Eosinophilia * C-REACTIVE PROTEIN(Performed 05/26/2012) Performed for Eosinophilia * LDH BLOOD(Performed 05/26/2012) Performed for Eosinophilia * URIC ACID BLOOD(Performed 05/26/2012) Performed for Eosinophilia * FERRITIN(Performed 05/26/2012) Performed for Eosinophilia * RETIC COUNT(Performed 05/26/2012) Performed for Eosinophilia * CBC W MANUAL DIFFERENTIAL(Performed 05/26/2012) Performed for Eosinophilia * ECHO CONSULT - PEDIATRIC(Performed 05/26/2012) Performed for Eosinophilia * CYTOKINE PANEL(Performed 05/26/2012) Performed for Eosinophilia * LAB RESULTS ORDER(Performed 05/13/2012) * PATHOLOGY/CYTOLOGY REPORT ORDER(Performed 05/07/2012) * COLONOSCOPY BIOPSY (ANY METHOD)(Performed 05/05/2012) Performed for EE (eosinophilic esophagitis) * ESOPHAGOGASTRODUODENOSCOPY (EGD) BIOPSY(Performed 05/05/2012) Performed for EE (eosinophilic esophagitis) * ENDOSCOPY, COLON, DIAGNOSTIC(Performed 05/05/2012) Performed for Vomiting and diarrhea * EGD(Performed 05/05/2012) Performed for Vomiting and diarrhea * PATHOLOGY TISSUE EXAM (STL)(Performed 05/05/2012) Performed for EE (eosinophilic esophagitis) and Eosinophilic Enterocolitis, Eosinophilia * CBC W AUTO DIFFERENTIAL(Performed 05/05/2012) Performed for EE (eosinophilic esophagitis) and Eosinophilic Enterocolitis, Eosinophilia * LAB RESULTS ORDER(Performed 03/11/2012) * LAB RESULTS ORDER(Performed 02/21/2012) * IMAGING/RADIOLOGY/XRAY RESULTS ORDER(Performed 01/30/2012) * LAB RESULTS ORDER(Performed 01/28/2012) * IMAGING/RADIOLOGY/XRAY RESULTS ORDER(Performed 01/28/2012) * CT CHEST W CONTRAST(Performed 01/11/2012) Performed for Pulmonary nodules, Eosinophilia * IMMUNOSCORE IGE INTERP(Performed 01/09/2012) Performed for EE (eosinophilic esophagitis), Eosinophilic gastroenteritis and colitis * INTERLEUKIN-5(Performed 01/09/2012) Performed for Eosinophilia * COMPREHENSIVE METABOLIC PANEL(Performed 01/09/2012) Performed for EE (eosinophilic esophagitis) * CBC W AUTO DIFFERENTIAL(Performed 01/09/2012) Performed for EE (eosinophilic esophagitis), Eosinophilic gastroenteritis and colitis * ALLERGEN TURKEY IGE(Performed 01/09/2012) Performed for EE (eosinophilic esophagitis), Eosinophilic gastroenteritis and colitis * ALLERGEN WALNUT IGE(Performed 01/09/2012) Performed for EE (eosinophilic esophagitis), Eosinophilic gastroenteritis and colitis * ALLERGEN MOUSE URINE IGE(Performed 01/09/2012) Performed for EE (eosinophilic esophagitis), Eosinophilic gastroenteritis and colitis * ALLERGEN COCKROACH IGE(Performed 01/09/2012) Performed for EE (eosinophilic esophagitis), Eosinophilic gastroenteritis and colitis * ALLERGEN CHICKEN MEAT IGE(Performed 01/09/2012) Performed for EE (eosinophilic esophagitis), Eosinophilic gastroenteritis and colitis * ALLERGEN BEEF IGE(Performed 01/09/2012) Performed for EE (eosinophilic esophagitis), Eosinophilic gastroenteritis and colitis * ALLERGEN APPLE IGE(Performed 01/09/2012) Performed for EE (eosinophilic esophagitis), Eosinophilic gastroenteritis and colitis * ALLERGEN BANANA IGE(Performed 01/09/2012) Performed for EE (eosinophilic esophagitis), Eosinophilic gastroenteritis and colitis * ALLERGEN INHALANT COMPREHENSIVE PROFILE(Performed 01/09/2012) Performed for EE (eosinophilic esophagitis), Eosinophilic gastroenteritis and colitis * ALLERGEN FOOD NUT MIX PROFILE(Performed 01/09/2012) Performed for EE (eosinophilic esophagitis), Eosinophilic gastroenteritis and colitis * ALLERGEN FOOD CEREAL PROFILE(Performed 01/09/2012) Performed for EE (eosinophilic esophagitis), Eosinophilic gastroenteritis and colitis * ALLERGEN FOOD COMMON ADULT PROFILE(Performed 01/09/2012) Performed for EE (eosinophilic esophagitis), Eosinophilic gastroenteritis and colitis * ALLERGEN FOOD VEGETABLE PROFILE(Performed 01/09/2012) Performed for EE (eosinophilic esophagitis), Eosinophilic gastroenteritis and colitis * ALLERGEN FOOD SEAFOOD PROFILE(Performed 01/09/2012) Performed for EE (eosinophilic esophagitis), Eosinophilic gastroenteritis and colitis * ALLERGEN FOOD SALAD PROFILE(Performed 01/09/2012) Performed for EE (eosinophilic esophagitis), Eosinophilic gastroenteritis and colitis * PATHOLOGY/CYTOLOGY REPORT ORDER(Performed 12/11/2011) * LAB RESULTS ORDER(Performed 12/11/2011) * CARDIAC EKG ORDER(Performed 11/23/2011) * IMAGING/RADIOLOGY/XRAY RESULTS ORDER(Performed 11/23/2011) * DIFFERENTIAL MANUAL(Performed 11/22/2011) * CBC W AUTO DIFFERENTIAL(Performed 11/22/2011) * CATECHOLAMINES URINE FRACTIONATED TIMED(Performed 11/21/2011) * ECHO CONSULT - PEDIATRIC(Performed 11/21/2011) * DIFFERENTIAL MANUAL(Performed 11/21/2011) * CBC W AUTO DIFFERENTIAL(Performed 11/21/2011) * VASOACTIVE INTESTINAL PEPTIDE(Performed 11/20/2011) * ALLERGEN PEDIATRIC FOOD PROFILE(Performed 11/20/2011) * DIFFERENTIAL MANUAL(Performed 11/20/2011) * CBC W AUTO DIFFERENTIAL(Performed 11/20/2011) * CT CHEST ABDOMEN PELVIS W CONT(Performed 11/19/2011) Performed for Abdominal pain, diarrhea, emesis, Eosinophilia, Presumed EE, Flushing * CATECHOLAMINES BLOOD FRACTIONATED(Performed 11/19/2011) * HYDROXYINDOLACETIC ACID 5 URINE TIMED(Performed 11/19/2011) * DIFFERENTIAL MANUAL(Performed 11/19/2011) * CBC W AUTO DIFFERENTIAL(Performed 11/19/2011) * DIFFERENTIAL MANUAL(Performed 11/18/2011) * CBC W AUTO DIFFERENTIAL(Performed 11/18/2011) * DIFFERENTIAL MANUAL(Performed 11/17/2011) * CBC W AUTO DIFFERENTIAL(Performed 11/17/2011) * EOSINOPHIL URINE SMEAR(Performed 11/16/2011) * URINALYSIS REFLEX TO MICROSCOPIC NO CULTURE(Performed 11/16/2011) * URINE MICROSCOPIC ONLY(Performed 11/16/2011) * BIOPSY BONE MARROW(Performed 11/16/2011) Performed for Diarrhea * COLONOSCOPY(Performed 11/16/2011) Performed for Diarrhea * ESOPHAGOGASTRODUODENOSCOPY (EGD) BIOPSY(Performed 11/16/2011) Performed for Diarrhea * ENDOSCOPY, COLON, DIAGNOSTIC(Performed 11/16/2011) * EGD(Performed 11/16/2011) * LEUKEMIA PANEL(Performed 11/16/2011) * PATHOLOGY TISSUE EXAM (STL)(Performed 11/16/2011) * BONE MARROW BIOPSY (STL)(Performed 11/16/2011) * DIFFERENTIAL MANUAL(Performed 11/16/2011) * URIC ACID BLOOD(Performed 11/16/2011) * LDH BLOOD(Performed 11/16/2011) * CBC W AUTO DIFFERENTIAL(Performed 11/16/2011) * LUC BLOOD SCREEN W/REFLEX TITER(Performed 11/16/2011) * ERYTHROCYTE SEDIMENTATION RATE(Performed 11/16/2011) * C-REACTIVE PROTEIN(Performed 11/16/2011) * IGE BLOOD(Performed 11/16/2011) * CYTOGENETICS CANCER PANEL(Performed 11/16/2011) * BASIC METABOLIC PANEL (CALCIUM TOTAL)(Performed 11/15/2011) * O+P PANEL(Performed 11/15/2011) * EGD(Performed 11/15/2011) * ENDOSCOPY, COLON, DIAGNOSTIC(Performed 11/15/2011) * EGD(Performed 11/15/2011) * TISSUE TRANSGLUTAMINASE AB IGA(Performed 11/15/2011) * CELIAC DISEASE DUAL AG SCREEN W REFLEX(Performed 11/15/2011) * CBC W AUTO DIFFERENTIAL(Performed 11/15/2011) * DEAMIDATED GLIADIN PEPTIDE (DGP) AB IGA(Performed 11/15/2011) * DIFFERENTIAL MANUAL(Performed 11/15/2011) * LAB MISC TEST(Performed 11/13/2011) * [id number] FECES(Performed 11/13/2011) * FECAL LEUKOCYTES(Performed 11/13/2011) * CULTURE STOOL PANEL(Performed 11/13/2011) * O+P PANEL(Performed 11/13/2011) * EKG 15-LEAD(Performed 11/13/2011) * US ABDOMEN COMPLETE(Performed 11/13/2011) Performed for Diarrhea, Abdominal pain, diarrhea, emesis, Eosinophilia * ISOHEMAGGLUTININ TITER(Performed 11/13/2011) * CBC W AUTO DIFFERENTIAL(Performed 11/13/2011) * IMMUNOGLOBULINS IGG/IGM/IGA PANEL(Performed 11/13/2011) * LAB MISC TEST(Performed 11/13/2011) * TOXOCARA ANTIBODY BLOOD(Performed 11/13/2011) * DIFFERENTIAL MANUAL(Performed 11/13/2011) * XR ABD OBSTRUCTION SERIES 2VW(Performed 11/12/2011) Performed for Diarrhea, Abdominal pain, diarrhea, emesis, Eosinophilia * XR CHEST 2VW(Performed 11/12/2011) Performed for Diarrhea, Abdominal pain, diarrhea, emesis, Eosinophilia * O+P PANEL(Performed 11/10/2011) * DIFFERENTIAL MANUAL(Performed 11/09/2011) * CBC W AUTO DIFFERENTIAL(Performed 11/09/2011) * COMPREHENSIVE METABOLIC PANEL(Performed 11/09/2011) Results * GROSS + MICRO EXAM (STL) (04/10/2019 12:55 PM SUPPORT SERVICES MANAGER) Only the most recent of7 resultswithin the time period is included. Case Report Surgical Pathology Report ? Case: [id number] ? Authorizing Provider: ??Kenzie Cobb MD ?Collected: [...] - Polyp Rectal ? 04/13/2019 5:42 PM SUPPORT SERVICES MANAGER [facility] Final Diagnosis Small intestine, duodenum, biopsy [...] (H): - Hyperplastic polyp 04/13/2019 5:42 PM [facility] Clinical History The patient is a 18-year-old young man with eosinophilic esophagitis who underwent upper endoscopy and colonoscopy. The findings were scattered erosions of the duodenal bulb, scattered gastric erythema, and mild esophageal linear furrows, and a rectal polyp. 04/13/2019 5:42 PM [facility] Gross Description The specimens are received fixed in formalin in eight containers for gross and microscopic examination. All containers are labeled with the patient? s name, Lavelle Reyes. Specimen A, duodenal biopsy, consists of four [...] toto as H1. (CT/na) 04/13/2019 5:[address] [facility] Microscopic Description 24 H&E slides examined. Microscopic examination substantiates the final diagnosis. 04/13/2019 5:42 PM [facility] Disclaimer The performance characteristics of all immunohistochemical and indirect immunofluorescence stains (if any) cited in this report were determined by the Histopathology Laboratory of [facility] in compliance with Clinical Laboratory Improvement Amendments of 1988 (CLIA'88) regulations. Some of these tests rely on the use of analyte-specific reagents and are subject to specific labeling requirements by the U.S. Food and Drug Administration (FDA). Such tests were developed by the [facility] of [facility] and have not been cleared or approved by the FDA. The FDA has determined that such clearance or approval is not necessary. These tests are used for clinical purposes and should not be regarded as investigational or for research. This case has been personally reviewed and interpreted by the attending (teaching) pathologist. The interpretation of this case is performed by [facility] Pathology at [facility], [address] [place] [id number]. 04/13/2019 5:[address] [facility] Embedded Images 04/13/2019 5:42 PM SUPPORT SERVICES MANAGER [facility] Pathology/Cytology DUODENAL BIOPSY SPECIMEN / Unknown 04/10/2019 12:55 PM SUPPORT SERVICES MANAGER 04/10/2019 2:35 PM SUPPORT SERVICES MANAGER Miscellaneous samples (specimen) BIOPSY OF STOMACH / Unknown 04/10/2019 12:55 PM SUPPORT SERVICES MANAGER 04/10/2019 2:35 PM SUPPORT SERVICES MANAGER Miscellaneous samples (specimen) ESOPHAGEAL BIOPSY SPECIMEN / Unknown 04/10/2019 12:55 PM SUPPORT SERVICES MANAGER 04/10/2019 2:35 PM SUPPORT SERVICES MANAGER Miscellaneous samples (specimen) ESOPHAGEAL BIOPSY SPECIMEN / Unknown 04/10/2019 1:01 PM SUPPORT SERVICES MANAGER 04/10/2019 2:35 PM SUPPORT SERVICES MANAGER Miscellaneous samples (specimen) TERMINAL ILEUM RESECTION SPECIMEN / Unknown 04/10/2019 1:18 PM SUPPORT SERVICES MANAGER 04/10/2019 2:35 PM SUPPORT SERVICES MANAGER Miscellaneous samples (specimen) COLONIC BIOPSY SPECIMEN / Unknown 04/10/2019 1:18 PM SUPPORT SERVICES MANAGER 04/10/2019 2:35 PM SUPPORT SERVICES MANAGER Miscellaneous samples (specimen) RECTOSIGMOID STRUCTURE / Unknown 04/10/2019 1:22 PM SUPPORT SERVICES MANAGER 04/10/2019 2:35 PM SUPPORT SERVICES MANAGER Miscellaneous samples (specimen) RECTAL POLYP / Unknown 04/10/2019 1:23 PM SUPPORT SERVICES MANAGER 04/10/2019 2:35 PM SUPPORT SERVICES MANAGER Kenzie Cobb MD LAB - PATHOLOGY/CYTO LOGY ORDERABLES Performing Organization Address [facility]/ZIP Co de Phone Number [facility] [address] [place] [address] [facility] [address] [place], [place] [id number] [place] [address] * HELICOBACTER PYLORI UREASE (STL) (04/10/2019 12:47 PM SUPPORT SERVICES MANAGER) Only the most recent of2 resultswithin the time period is included. Helicobacter pylori Urease Initial Negative Negative 04/11/2019 1:33 PM SUPPORT SERVICES MANAGER [facility] Helicobacter pylori Urease Final Negative Negative 04/11/2019 1:[address] [facility] Comment:This is an appended report. These results have been appended to a previously preliminary verified report. Microbiology GASTRIC ANTRAL BIOPSY SPECIMEN / Unknown Collection / Unknown 04/10/2019 12:47 PM SUPPORT SERVICES MANAGER 04/10/2019 1:11 PM SUPPORT SERVICES MANAGER Faith Quispe MD LAB - MICROBIOLOG Y ORDERABLES Performing Organization Address [facility] Co de Phone Number [facility] [address] [place] [address] * (ABNORMAL) CBC W AUTO DIFFERENTIAL (04/10/2019 12:00 PM SUPPORT SERVICES MANAGER) Only the most recent of14 resultswithin the time period is included. WBC 5.6 4.4 - 10.7 x10E9/L 04/10/2019 12:[address] [facility] WBC Corrected 04/10/2019 12:[address] [facility] RBC 5.60(H) 3.80 - 5.40 x10E12/L 04/10/2019 12:[address] [facility] Hemoglobin 17.0 12.0 - 17.6 gm/dL 04/10/2019 12:[address] [facility] Hematocrit 49.2 35.2 - 51.7 % 04/10/2019 12:[address] [facility] MCV 87.9 80.7 - 98.3 fl 04/10/2019 12:[address] [facility] MCH 30.4 26.7 - 34.0 pg 04/10/2019 12:[address] [facility] MCHC 34.6 30.8 - 35.9 gm/dL 04/10/2019 12:[address] [facility] Platelet Count 254 153 - 416 x10E9/L 04/10/2019 12:[address] [facility] RDW-CV 12.0(L) 12.1 - 14.9 % 04/10/2019 12:[address] [facility] MPV 9.6 9.4 - 12.9 fl 04/10/2019 12:[address] [facility] Neutrophils % 47.8 44.0 - 73.0 % 04/10/2019 12:[address] [facility] Lymphocytes % 32.4 20.0 - 43.0 % 04/10/2019 12:[address] [facility] Monocytes % 6.4 5.0 - 13.0 % 04/10/2019 12:[address] [facility] Eosinophils % 12.7(H) 0.0 - 6.0 % 04/10/2019 12:[address] [facility] Basophils % 0.5 0.0 - 2.0 % 04/10/2019 12:[address] [facility] Immature Granulocytes 0.2 0 - 1 % 04/10/2019 12:[address] [facility] Neutrophil Absolute 2.67 2.01 - 7.14 x10E9/L 04/10/2019 12:[address] [facility] Lymphocytes Absolute 1.81 1.07 - 3.94 x10E9/L 04/10/2019 12:[address] [facility] Monocytes Absolute 0.36 0.26 - 1.07 x10E9/L 04/10/2019 12:[address] [facility] Eosinophils Absolute 0.71(H) 0 - 0.47 x10E9/L 04/10/2019 12:[address] [facility] Basophils Absolute 0.03 0 - 0.08 x10E9/L 04/10/2019 12:[address] [facility] Immature Granulocytes Absolute 0.01 0.00 - 0.06 x10E9/L 04/10/2019 12:[address] [facility] nRBC Auto 0 /100 WBC 04/10/2019 12:[address] [facility] Blood BLOOD SPECIMEN / Unknown Venipuncture / Unknown 04/10/2019 12:00 PM SUPPORT SERVICES MANAGER 04/10/2019 12:20 PM [facility] Faith Quispe MD LAB - HEMATOLOGY ORDERABLES Performing Organization Address City/State/[facility] Co de Phone Number [facility] [address] [place] [address] * (ABNORMAL) COMPREHENSIVE METABOLIC PANEL (04/10/2019 12:00 PM [facility]) Only the most recent of4 resultswithin the time period is included. Glucose 77 70 - 105 mg/dL 04/10/2019 12:[address] [facility] Sodium 138 136 - 145 mmol/L 04/10/2019 12:[address] [facility] Potassium 4.3 3.5 - 5.1 mmol/L 04/10/2019 12:[address] [facility] Chloride 105 98 - 107 mmol/L 04/10/2019 12:[address] [facility] CO2 25 22 - 29 mmol/L 04/10/2019 12:[address] [facility] Calcium 10.13 9.08 - 10.48 mg/dL 04/10/2019 12:[address] [facility] Anion Gap 8 5 - 20 mmol/L 04/10/2019 12:[address] [facility] BUN 14.2 5.3 - 18.7 mg/dL 04/10/2019 12:[address] [facility] Creatinine 1.15(H) 0.61 - 1.07 mg/dL 04/10/2019 12:[address] [facility] Alkaline Phosphatase 62 39 - 139 U/L 04/10/2019 12:[address] [facility] ALT 17 6 - 46 U/L 04/10/2019 12:[address] [facility] AST 19 8 - 42 U/L 04/10/2019 12:[address] [facility] Protein Total 7.6 6.3 - 8.2 gm/dL 04/10/2019 12:[address] [facility] Albumin 4.8 3.3 - 4.9 gm/dL 04/10/2019 12:[address] [facility] Bilirubin Total 1.1 0.3 - 1.2 mg/dL 04/10/2019 12:[address] [facility] eGFR by MDRD >60 >60 mL/min/1.7 3m2 04/10/2019 12:[address] [facility] eGFR by MDRD >60 >60 mL/min/1.7 3m2 04/10/2019 12:[address] [facility] Blood BLOOD SPECIMEN / Unknown Venipuncture / Unknown 04/10/2019 12:00 PM SUPPORT SERVICES MANAGER 04/10/2019 12:20 PM SUPPORT SERVICES MANAGER Faith Quispe MD LAB - CHEMISTRY O RDTREMAYNE Performing Organization Address [facility]/ZIP Co de Phone Number [facility] [address] [place] [id number] * LIPASE BLOOD (04/10/2019 12:00 PM SUPPORT SERVICES MANAGER) Lipase 16 10 - 220 U/L 04/10/2019 12:[address] [facility] Blood BLOOD SPECIMEN / Unknown Venipuncture / Unknown 04/10/2019 12:00 PM SUPPORT SERVICES MANAGER 04/10/2019 12:20 PM SUPPORT SERVICES MANAGER Faith Quispe MD LAB - CHEMISTRY O RDTREMAYNE Performing Organization Address City/[facility]/ZIP Co de Phone Number [facility] [address] [place] [id number] * EGD (04/10/2019 11:47 AM SUPPORT SERVICES MANAGER) Report Endoscopy POC _ Patient Name: Lavelle Wells ? Date of : 2000 ?Admit Type: Outpatient Age: 18 ? Gender: Male Race: White ? Attending MD: Kenzie Cobb , Order #: [id number] ? _ Procedure: ? Upper GI endoscopy Indications: ? Follow-up of eosinophilic esophagitis, Follow-up of ? eosinophilic gastroenteritis, Nausea Providers: ? Kenzie Cobb Referring MD: ?Laine Sahrp MD Medicines: ? Monitored Anesthesia Care Complications: [...] Procedure Code(s): ? --- Professional --- ? 37280, Esophagogastroduod enoscopy, flexible, transoral; with biopsy, ? single or multiple ? --- Technical --- ? 65550, Esophagogastroduod enoscopy, flexible, transoral; with biopsy, ? [...] gastroenteritis ? R11.0, Nausea CPT copyright 2017 [employer]. All rights reserved. The codes documented in this report are preliminary and upon inpatient coder review may be revised to meet current compliance requirements. Dr. Kenzie Cobb Kenzie Cobb, 04/10/2019 1:59:08 PM This report has been signed electronically. Number of Addenda: 0 Note Initiated On: 04/07/2019 11:47 AM Procedure Date: ? 04/10/2019 11:47:00 AM ? This report has been signed electronically. [facility] 04/10/2019 11:4 7 AM SUPPORT SERVICES MANAGER Faith Quispe MD GI PROCEDURE RICHIE ROBINS [facility] [address] [place] [address] * ENDOSCOPY, COLON, DIAGNOSTIC (04/10/2019 11:46 AM SUPPORT SERVICES MANAGER) Report Endoscopy POC _ Patient Name: Lavelle Wells ? Date of : 2000 ?Admit Type: Outpatient Age: 18 ? Gender: Male Race: White ? Attending MD: Kenzie Cobb , Order #: [id number] ? _ Procedure: ? Colonoscopy Indications: ? [...] Procedure Code(s): ? --- Professional --- ? 67614, Colonoscopy, flexible; with biopsy, single or multiple ? --- Technical --- ? 01128, Colonoscopy, flexible; with biopsy, single or multiple Diagnosis Code(s): ? --- Professional --- ? R10.84, Generalized abdominal pain ? K52.9, Noninfective gastroenteritis and colitis, unspecified ? --- Technical --- ? R10.84, Generalized abdominal pain ? K52.9, Noninfective gastroenteritis and colitis, unspecified CPT copyright 2017 [employer]. All rights reserved. The codes documented in this report are preliminary and upon inpatient coder review may be revised to meet current compliance requirements. Dr. Kenzie Cobb Kenzie Cobb, 04/10/2019 1:59:34 PM This report has been signed electronically. Number of Addenda: 0 Note Initiated On: 04/07/2019 11:46 AM Procedure Date: ? 04/10/2019 11:46:00 AM ? This report has been signed electronically. [facility] 04/10/2019 11:4 6 AM SUPPORT SERVICES MANAGER Faith Quispe MD GI PROCEDURE RICHIE ROBINS [facility] [address] [place] [address] * ENDOSCOPY, COLON, DIAGNOSTIC (11/16/2016 6:37 AM CDT) Report Endoscopy POC _ Patient Name: Lavelle Wells ? Date of : 2000 ?Admit Type: Outpatient Age: 16 ? Gender: Male Attending MD: Stuart Miller MD ??Order #: [id number] _ Procedure: ? Colonoscopy Indications: ? Suspected colitis, h/o EoE and eosinophilia Providers: ? Stuart Miller MD Referring MD: ?Laine Sharp MD Medicines: ? General Anesthesia Complications: ? No immediate complications. _ Procedure: [...] quality of ? the bowel preparation was excellent. Scope insertion time ? was 5 minutes. Scope withdrawal time was 8 minutes. Findings: ? The perianal and digital rectal examinations were normal. ? The terminal ileum appeared normal. Biopsies were taken with a cold ? forceps for histology. ? The sigmoid colon, descending colon, transverse colon, ascending colon ? and cecum appeared normal. Biopsies were taken with a cold forceps for ? histology. ? A 4 mm, non-bleeding polyp was found in the rectum. The polyp was ? semi-sessile. The polyp was removed with a piecemeal technique using a ? cold biopsy forceps. Resection and retrieval were complete. ? Normal mucosa was found in the rectum. Biopsies were taken with a cold ? forceps for histology. Small elevations and nodules were seen in the ? rectum which were likely lymphoid follicles but where were included in ? the biopsies. Impression: ?- The examined portion of the ileum was normal. Biopsied. ? - The sigmoid colon, descending colon, transverse colon, ? ascending colon and cecum are normal. Biopsied. ? - One 4 mm, non-bleeding polyp in the rectum, removed ? piecemeal using a cold biopsy forceps. Resected and ? retrieved. ? - Normal mucosa in the rectum. Biopsied. Recommendation: ?- Discharge patient to home (with parent). ? - Continue present medications. ? - Await pathology results. ? - Telephone GI clinic for pathology results in 1 week. ? Procedure Code(s): ? --- Professional --- ? 60776, Colonoscopy, flexible; with biopsy, single or multiple ? --- Technical --- ? 53980, Colonoscopy, flexible; with biopsy, single or multiple Diagnosis Code(s): ? --- Professional --- ? K62.1, Rectal polyp ? --- Technical --- ? K62.1, Rectal polyp CPT copyright 2015 [employer]. All rights reserved. The codes documented in this report are preliminary and upon inpatient coder review may be revised to meet current compliance requirements. Dr. Stuart Miller Stuart Miller MD 11/16/2016 1:19:02 PM This report has been signed electronically. Number of Addenda: 0 Note Initiated On: 11/16/2016 6:37 AM Procedure Date: ? 11/16/2016 6:37:07 AM ? This report has been signed electronically. [facility] 11/16/2016 6:37 AM CDT Kenzie Cobb MD GI PROCEDURE ORDERAB LES [facility] [address] [place] [address] * EGD (10/01/2016 10:23 AM CDT) Report Endoscopy POC _ Patient Name: Lavelle Wells ? Date of : 2000 ?Admit Type: Outpatient Age: 16 ? Gender: Male Attending MD: Kenzie Cobb , ?Order #: [id number] _ Procedure: ? Upper GI endoscopy Indications: ? Follow-up of eosinophilic esophagitis Providers: ? Kenzie Cobb Referring MD: ?Laine Sharp MD Medicines: ? General Anesthesia Complications: ? No immediate complications. _ Procedure: ? After obtaining informed consent, the endoscope was passed ? under direct vision. Throughout the procedure, the ? patient's blood pressure, pulse, and oxygen saturations ? were monitored continuously. The Endoscope was introduced ? through the mouth, and advanced to the second part of ? duodenum. The upper GI endoscopy was accomplished without ? difficulty. The patient tolerated the procedure well. Findings: ? Mucosal changes including longitudinal furrows and circumferential folds ? were found in the entire esophagus. Esophageal findings were graded ? using the Eosinophilic Esophagitis Endoscopic Reference Score ? (EoE-EREFS) as: Edema Grade 1 Present (decreased clarity or absence of ? vascular markings), Rings Grade 1 Mild (subtle circumferential ridges ? seen on esophageal distension), Exudates Grade 1 Mild (scattered white ? lesions involving less than 10 percent of the esophageal surface area), ? Furrows Grade 1 Present (vertical lines with or without visible depth) ? and Stricture none (no stricture found). Biopsies were obtained from the ? proximal and distal esophagus with cold forceps for histology of ? suspected eosinophilic esophagitis. Estimated blood loss was minimal. ? No gross lesions were noted in the entire examined stomach. Biopsies ? were taken with a cold forceps for Helicobacter pylori testing using a ? rapid urease test. Biopsies were taken with a cold forceps for ? histology. Estimated blood loss was minimal. ? Localized severe inflammation characterized by erosions, erythema and ? friability was found in the duodenal bulb. Biopsies were taken with a ? cold forceps for histology. Estimated blood loss was minimal. Impression: ?- Esophageal mucosal changes consistent with eosinophilic ? esophagitis. Biopsied. ? - No gross lesions in the stomach. Biopsied. ? - Duodenitis. Biopsied. Recommendation: ?- Discharge patient to home (with parent). ? - Use Prilosec (omeprazole) 20 mg PO BID. ? Procedure Code(s): ? --- Professional --- ? 12682, Esophagogastroduod enoscopy, flexible, transoral; with biopsy, ? single or multiple ? --- Technical --- ? 98998, Esophagogastroduod enoscopy, flexible, transoral; with biopsy, ? single or multiple Diagnosis Code(s): ? --- Professional --- ? K29.80, Duodenitis without bleeding ? K20.0, Eosinophilic esophagitis ? --- Technical --- ? K29.80, Duodenitis without bleeding ? K20.0, Eosinophilic esophagitis CPT copyright 2015 [employer]. All rights reserved. The codes documented in this report are preliminary and upon inpatient coder review may be revised to meet current compliance requirements. Dr. Kenzie Cobb Kenzie Cobb, 10/01/2016 2:12:40 PM This report has been signed electronically. Number of Addenda: 0 Note Initiated On: 09/28/2016 10:23 AM Procedure Date: ? 10/01/2016 10:23:00 AM ? This report has been signed electronically. [facility] 10/01/2016 10:2 3 AM CDT Kenzie Cobb MD GI PROCEDURE ORDERAB LES [facility] [address] [place] [address] * EGD (01/22/2014 7:40 AM SUPPORT SERVICES MANAGER) Report Endoscopy POC _ Patient Name: Lavelle Wells ?Gender: Male ?Date of : 2000 Age: 13 ? Admit Type: Outpatient Attending MD: Kenzie Cobb, ? Order #: [id number] _ Procedure: ? Upper GI endoscopy Indications: ? Upper abdominal pain, Follow-up of eosinophilic esophagitis Providers: ? Kenzieshanon Servni MD: ?Laine Sharp MD Medicines: ? General Anesthesia Complications: ? No immediate complications. _ Procedure: ? After obtaining informed consent, the endoscope was passed ? under direct vision. Throughout the procedure, the ? patient's blood pressure, pulse, and oxygen saturations ? were monitored continuously. The Endoscope was introduced ? through the mouth, and advanced to the second part of ? duodenum. The upper GI endoscopy was accomplished without ? difficulty. The patient tolerated the procedure well. Findings: ? Mucosal changes including ringed esophagus and longitudinal furrows were ? found in the entire esophagus. Biopsies were taken with a cold forceps ? for histology. Estimated blood loss was minimal. ? No gross lesions were noted in the entire examined stomach. Biopsies ? were taken with a cold forceps for histology. Estimated blood loss was ? minimal. ? No gross lesions were noted in the entire examined duodenum. Biopsies ? were taken with a cold forceps for histology. Estimated blood loss was ? minimal. Impression: ?- Esophageal mucosal changes consistent with eosinophilic ? esophagitis. Biopsied. ? - No gross lesions in the stomach. Biopsied. ? - No gross lesions in duodenum. Biopsied. Recommendation: ?- Await pathology results. ? - Perform a colonoscopy today. ? Procedure Code(s): ? --- Professional --- ? 89785, Esophagogastrodu odenoscopy, flexible, transoral; with biopsy, ? single or multiple ? --- Technical --- ? 17451, Esophagogastrodu odenoscopy, flexible, transoral; with biopsy, ? single or multiple Diagnosis Code(s): ? --- Professional --- ? 530.9, Unspecified disorder of esophagus ? 789.09, Abdominal pain, other specified site ? 530.13, Eosinophilic esophagitis ? --- Technical --- ? 530.9, Unspecified disorder of esophagus ? 789.09, Abdominal pain, other specified site ? 530.13, Eosinophilic esophagitis CPT copyright 2013 [employer]. All rights reserved. The codes documented in this report are preliminary and upon inpatient coder review may be revised to meet current compliance requirements. Dr. Kenzie Cobb Kenzie Cobb, 01/22/2014 9:30 AM This report has been signed electronically. Number of Addenda: 0 Note Initiated On: 01/21/2014 7:40 AM Procedure Date: ? 01/22/2014 7:40:00 AM ? This report has been signed electronically. [facility] 01/22/2014 7:40 AM SUPPORT SERVICES MANAGER Kenzie Cobb MD GI PROCEDURE ORDERAB LES [facility] [address] [place] [address] * ENDOSCOPY, COLON, DIAGNOSTIC (01/22/2014 7:39 AM SUPPORT SERVICES MANAGER) Report Endoscopy POC _ Patient Name: Lavelle Reyes ?Gender: Male ?Date of : 2000 Age: 13 ? Admit Type: Outpatient Attending MD: Kenzie Cobb, ? Order #: [id number] _ Procedure: ? Colonoscopy Indications: ? Generalized abdominal pain, Diarrhea Providers: ? Kenzie Cobb Referring MD: ?Laine Sharp MD Medicines: ? General Anesthesia Complications: ? No immediate complications. _ Procedure: [...] and digital rectal examinations were normal. ? Normal mucosa was found in the entire colon. Biopsies were taken with a ? cold forceps for histology. Estimated blood loss was minimal. ? The terminal ileum appeared normal. Biopsies were taken with a cold ? forceps for histology. Estimated blood loss was minimal. Impression: ?- Normal mucosa in the entire examined colon. Biopsied. ? - The examined portion of the ileum was normal. Biopsied. Recommendation: ?- Discharge patient to home (with parent). ? - Await pathology results. ? Procedure Code(s): ? --- Professional --- ? 34890, Colonoscopy, flexible, proximal to splenic flexure; with biopsy, ? single or multiple ? --- Technical --- ? 94267, Colonoscopy, flexible, proximal to splenic flexure; with biopsy, ? single or multiple Diagnosis Code(s): ? --- Professional --- ? 789.07, Abdominal pain, generalized ? 787.91, Diarrhea ? --- Technical --- ? 789.07, Abdominal pain, generalized ? 787.91, Diarrhea CPT copyright 2013 [employer]. All rights reserved. The codes documented in this report are preliminary and upon inpatient coder review may be revised to meet current compliance requirements. Dr. Kenzie Cobb Kenzie Cobb, 01/22/2014 10:04 AM This report has been signed electronically. Number of Addenda: 0 Note Initiated On: 01/21/2014 7:39 AM Procedure Date: ? 01/22/2014 7:39:00 AM ? This report has been signed electronically. [facility] 01/22/2014 7:39 AM SUPPORT SERVICES MANAGER Kenzie Cobb MD GI PROCEDURE ORDERAB LES Performing Organization Address City/State/[facility] Co de Phone Number [facility] [address] [facility] [place] [address] * PATHOLOGY/CYTOLOGY REPORT ORDER (02/24/2013 5:13 AM SUPPORT SERVICES MANAGER) Only the most recent of3 resultswithin the time period is included. Narrative 02/24/2013 5:13 AM SUPPORT SERVICES MANAGER Ordered by an unspecified provider. Transcriptions Document, Scanned - 02/24/2013 5:13 AM CST Scanned Document LAB - PATHOLOGY/CYTO LOGY ORDERABLES * ENDOSCOPY, COLON, DIAGNOSTIC (02/20/2013 6:58 AM SUPPORT SERVICES MANAGER) Report Endoscopy POC _ Patient Name: Lavelle Wells ?Gender: Male ?Date of : 2000 Age: 12 ? Admit Type: Outpatient Attending MD: Kenzie Cobb, ? Order #: [id number] _ Procedure: ? Colonoscopy Indications: ? Follow-up of colitis, h/o eosinophilic enteropathy, colitis Providers: ? Kenzie Cobb Referring MD: ?Lanny Hewitt MD Medicines: ? General Anesthesia Complications: ? No immediate complications. _ Procedure: ? After I obtained informed consent, the scope was passed ? under direct vision. Throughout the procedure, the ? patient's blood pressure, pulse, and oxygen saturations ? were monitored continuously. The Colonoscope was ? introduced through the anus and advanced to the cecum, ? identified by the appendiceal orifice. The colonoscopy was ? technically difficult and complex due to a tortuous colon. ? Successful completion of the procedure was aided by ? changing the patient to a supine position. The patient ? tolerated the procedure well. The quality of the bowel ? preparation was fair. Findings: ? The perianal and digital rectal examinations were normal. ? Normal mucosa was found in the entire colon. Biopsies were taken with a ? cold forceps for histology. Estimated blood loss was minimal. Impression: ?- Normal mucosa in the entire examined colon. Biopsied. Recommendation: ?- Discharge patient to home (with parent). ? - Await pathology results. ? Procedure Code(s): ? --- Professional --- ? 65644, Colonoscopy, flexible, proximal to splenic flexure; with biopsy, ? single or multiple ? --- Technical --- ? 91191, Colonoscopy, flexible, proximal to splenic flexure; with biopsy, ? single or multiple Diagnosis Code(s): ? --- Professional --- ? 558.9, Other and unspecified noninfectious gastroenteritis and colitis ? --- Technical --- ? 558.9, Other and unspecified noninfectious gastroenteritis and colitis CPT (R) 2012 [employer]. All Rights Reserved. The codes documented in this report are preliminary and upon inpatient coder review may be revised to meet current compliance requirements. Dr. Kenzie Cobb Kenzie Cobb, 02/20/2013 10:18 AM This report has been signed electronically. Number of Addenda: 0 Note Initiated On: 02/20/2013 6:58 AM Procedure Date: ? 02/20/2013 6:58:12 AM ? This report has been signed electronically. [facility] 02/20/2013 6:58 AM SUPPORT SERVICES MANAGER Narrative [facility] - 02/20/2013 10:18 AM SUPPORT SERVICES MANAGER Procedure Note Kenzie Cobb MD - 02/20/2013 10:19 AM CST Kenzie Cobb MD GI PROCEDURE ORDERAB LES Performing Organization Address City/State/[facility] Phone Number [facility] [address] [place] [address] * EGD (02/20/2013 6:57 AM SUPPORT SERVICES MANAGER) Report Endoscopy POC __ _ Patient Name: Lavelle Reyes ?Gender: Male ?Date of : 2000 Age: 12 ? Admit Type: Outpatient Attending MD: Kenzie Cobb, ? Order #: [id number] __ _ Procedure: ? Upper GI endoscopy Indications: ? 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 Kenzie Cobb Referring MD: ?Lanny Hewitt MD Medicines: ? General Anesthesia Complications: ? No immediate complications. __ _ Procedure: ? After obtaining informed consent, the endoscope was passed ? under direct vision. Throughout the procedure, the ? patient's blood pressure, pulse, and oxygen saturations ? were monitored continuously. The Endoscope was introduced ? through the mouth, and advanced to the second part of ? duodenum. The upper GI endoscopy was accomplished without ? difficulty. The patient tolerated the procedure well. Findings: ? Mucosal changes including longitudinal furrows were found in the middle ? to lower third of the esophagus. Biopsies were taken with a cold forceps ? for histology. Estimated blood loss was minimal. ? No gross lesions were noted in the entire examined stomach. Biopsies ? were taken with a cold forceps for histology. Estimated blood loss was ? minimal. ? Localized mildly erythematous mucosa without active bleeding and with no ? stigmata of bleeding was found in the duodenal bulb. Biopsies were taken ? with a cold forceps for histology. Estimated blood loss was minimal. ? The exam of the duodenum was otherwise normal. Impression: ?- Esophageal mucosal changes secondary to eosinophilic ? esophagitis. Biopsied. ? - No gross lesions in the stomach. ? - Erythematous duodenopathy. Biopsied. Recommendation: ?- Perform a colonoscopy today. ? Procedure Code(s): ? --- Professional --- ? 31959, Upper gastrointestinal endoscopy including esophagus, stomach, ? and either the duodenum and/or jejunum as appropriate; with biopsy, ? single or multiple ? --- Technical --- ? 58119, Upper gastrointestinal endoscopy including esophagus, stomach, ? and either the duodenum and/or jejunum as appropriate; with biopsy, ? single or multiple Diagnosis Code(s): ? --- Professional --- ? 530.13, Eosinophilic esophagitis ? 537.9, Unspecified disorder of stomach and duodenum ? --- Technical --- ? 530.13, Eosinophilic esophagitis ? 537.9, Unspecified disorder of stomach and duodenum CPT (R) 2012 [employer]. All Rights Reserved. The codes documented in this report are preliminary and upon inpatient coder review may be revised to meet current compliance requirements. Dr. Kenzie Cobb Kenzie Cobb, 02/20/2013 9:04 AM This report has been signed electronically. Number of Addenda: 0 Note Initiated On: 02/20/2013 6:57 AM Procedure Date: ? 02/20/2013 6:57:32 AM ? This report has been signed electronically. [facility] 02/20/2013 6:57 AM SUPPORT SERVICES MANAGER Narrative [facility] - 02/20/2013 9:06 AM SUPPORT SERVICES MANAGER Procedure Note Kenzie Cobb MD - 02/20/2013 9:06 AM CST Kenzie Cobb MD GI PROCEDURE ORDERAB LES Performing Organization Address [facility] Co de Phone Number [facility] [address] [place] [address] * TRANSFERRIN (05/26/2012 3:27 PM CDT) Transferrin 239 189 - 388 mg/dL 05/26/2012 6:12 PM CDT [facility] Blood specimen (specimen) BLOOD SPECIMEN / Unknown 05/26/2012 3:27 PM CDT 05/26/2012 6:11 PM CDT Farhana Marti MD LAB - CHEMISTRY RICHIE ROBINS Performing Organization Address [facility] Co de Phone Number [facility] [address] [place] [address] * IRON + TIBC PANEL (05/26/2012 3:27 PM CDT) Iron ug/dL 05/28/2012 6:23 AM CDT [facility] TIBC Direct ug/dL 05/28/2012 6:23 AM CDT [facility] Iron Saturation % % 05/28/2012 6:23 AM CDT [facility] Iron 69 50 - 170 ug/dL 05/28/2012 6:23 AM CDT [facility] Zimory Comment: REFERENCE INTERVAL: Iron, Serum or Plasma Access complete set of age- and/or gender-specific reference intervals for this test in the [facility] Test Directory ([facility]). TIBC 262 250 - 400 ug/dL 05/28/2012 6:23 AM CDT [facility] Comment: REFERENCE INTERVAL: Iron Binding Capacity Total Access complete set of age- and/or gender-specific reference intervals for this test in the [facility] Test Directory ([facility]). Transferrin Saturation % 26 20 - 50 %sat 05/28/2012 6:23 AM CDT [facility] Blood specimen (specimen) BLOOD SPECIMEN / Unknown 05/26/2012 3:27 PM CDT 05/26/2012 6:11 PM CDT Farhana Marti MD LAB - CHEMISTRY RICHIE ROBINS [facility] [address] [place] [address] * URIC ACID BLOOD (05/26/2012 3:24 PM CDT) Only the most recent of2 resultswithin the time period is included. Uric Acid 3.8 2.0 - 5.5 mg/dL 05/26/2012 3:57 PM CDT [facility] Blood specimen (specimen) BLOOD SPECIMEN / Unknown 05/26/2012 3:24 PM CDT 05/26/2012 3:29 PM CDT Farhana Marti MD LAB - CHEMISTRY RICHIE ROBINS [facility] [address] [place] [address] * C-REACTIVE PROTEIN (05/26/2012 3:24 PM CDT) Only the most recent of2 resultswithin the time period is included. [facility] C-Reactive Protein <0.20 <=0.50 mg/dL 05/26/2012 3:52 PM CDT [facility] Blood specimen (specimen) BLOOD SPECIMEN / Unknown 05/26/2012 3:24 PM CDT 05/26/2012 3:29 PM CDT Farhana Marti MD LAB - CHEMISTRY ORDE RABLES Performing Organization Address [facility] Co de Phone Number [facility] [address] [place] [address] * SED RATE WESTERGREN (05/26/2012 3:24 PM CDT) Only the most recent of2 resultswithin the time period is included. [facility] Erythrocyte Sedimentation Rate Westergren 8 0 - 12 mm/hr 05/26/2012 4:14 PM CDT [facility] Blood specimen (specimen) BLOOD SPECIMEN / Unknown 05/26/2012 3:24 PM CDT 05/26/2012 3:28 PM CDT Farhana Marti MD LAB - HEMATOLOGY ORD ERABLES Performing Organization Address [facility] Co de Phone Number [facility] [address] [place] [address] * (ABNORMAL) CBC W MANUAL DIFFERENTIAL (05/26/2012 3:24 PM CDT) [facility] WBC 10.6 4.5 - 14.5 x10^9/L 05/26/2012 3:54 PM CDT [facility] RBC 4.55 4.00 - 5.20 x10^12/L 05/26/2012 3:54 PM CDT [facility] Hemoglobin 13.6 11.5 - 15.5 g/dL 05/26/2012 3:54 PM CDT [facility] Hematocrit 38.3 35.0 - 45.0 % 05/26/2012 3:54 PM CDT [facility] MCV 84.2 77.0 - 95.0 fl 05/26/2012 3:54 PM CDT [facility] MCH 29.9 25.0 - 33.0 pg 05/26/2012 3:54 PM CDT [facility] MCHC 35.5 31.0 - 37.0 gm/dL 05/26/2012 3:54 PM CDT [facility] RDW-CV 12.6 11.5 - 14.0 % 05/26/2012 3:54 PM CDT [facility] MPV 10.1(H) 6.0 - 9.5 fl 05/26/2012 3:54 PM CDT [facility] Platelet Count 272 100 - 400 x10^9/L 05/26/2012 3:54 PM CDT [facility] Blood specimen (specimen) BLOOD SPECIMEN / Unknown 05/26/2012 3:24 PM CDT 05/26/2012 3:52 PM CDT Farhana Marti MD LAB - HEMATOLOGY ORD ERABLES Performing Organization Address [facility] de Phone Number [facility] [address] [place], [place] [id number] * RETIC COUNT (05/26/2012 3:24 PM CDT) Reticulocyte Count 0.92 0.3 - 4.2 % 05/26/2012 3:55 PM CDT [facility] Blood specimen (specimen) BLOOD SPECIMEN / Unknown 05/26/2012 3:24 PM CDT 05/26/2012 3:52 PM CDT Farhana Marti MD LAB - HEMATOLOGY ORD ERABLES Performing Organization Address City/[facility] Co de Phone Number [facility] [address] [place] [address] * (ABNORMAL) DIFFERENTIAL MANUAL (05/26/2012 3:24 PM CDT) Only the most recent of11 resultswithin the time period is included. WBC Auto 10.6 4.5 - 14.5 X(10)9/L 05/26/2012 4:06 PM CDT [facility] Neutrophil % Manual 50 24 - 66 % 05/26/2012 4:06 PM CDT [facility] Lymphocytes % Manual 31 22 - 61 % 05/26/2012 4:06 PM CDT [facility] Monocytes % Manual 5 3 - 15 % 05/26/2012 4:06 PM CDT [facility] Eosinophils % Manual 9 0 - 10 % 05/26/2012 4:06 PM CDT [facility] Atypical Lymphocyte % Manual 2(H) <=0 % 05/26/2012 4:06 PM CDT [facility] Band % Manual 3 % 05/26/2012 4:06 PM CDT [facility] Cells Counted 100 # cells 05/26/2012 4:06 PM CDT [facility] Platelet Estimation Adequate platelets 05/26/2012 4:06 PM CDT [facility] WBC Morph Normal 05/26/2012 4:06 PM CDT [facility] Poikilocytosis Occasional 05/26/2012 4:06 PM CDT [facility] Blood specimen (specimen) BLOOD SPECIMEN / Unknown 05/26/2012 3:24 PM CDT 05/26/2012 3:52 PM CDT Farhana Marti MD LAB - HEMATOLOGY ORD ERABLES Performing Organization Address City/[facility]/ZIP Co de Phone Number [facility] [address] [place] [address] * LDH BLOOD (05/26/2012 3:24 PM CDT) Only the most recent of2 resultswithin the time period is included. LDH 238 140 - 260 U/L 05/26/2012 3:57 PM CDT [facility] Blood specimen (specimen) BLOOD SPECIMEN / Unknown 05/26/2012 3:24 PM CDT 05/26/2012 3:29 PM CDT Farhana Marti MD LAB - CHEMISTRY ORDE RABSUSIE Performing Organization Address City/[facility]/ZIP Co de Phone Number [facility] [address] [place] [address] * FERRITIN (05/26/2012 3:24 PM CDT) Ferritin 26 10 - 140 ng/mL 05/26/2012 4:00 PM CDT [facility] Blood specimen (specimen) BLOOD SPECIMEN / Unknown 05/26/2012 3:24 PM CDT 05/26/2012 3:29 PM CDT Farhana Marti MD LAB - CHEMISTRY RICHIE ROBINS [facility] [address] [place] [address] * ECHO CONSULT - PEDIATRIC (05/26/2012 8:57 AM CDT) Only the most recent of2 resultswithin the time period is included. 05/26/2012 8:57 AM CDT Narrative [facility] - 05/26/2012 1:16 PM CDT [facility] , Transthoracic Echocardiogram 2D, M-mode, Doppler, and Color Doppler Name: LAVELLE REYES MR #: [id number] Study date: 05/26/2012 Age: 11 years : 2000 Gender: Male Ht: 58.9 in / 149.5 cm Wt: 82.1 lb / 37.3 kg BSA: 1.26 m?? 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 Anatomic relationships: Visceral situs: normal. Left sided cardiac apex (levocardia). Normal atrial situs (atrial situs solitus). Concordant atrioventricular alignment. Ventricular d-loop. Normal infundibular anatomy. Concordant ventriculoarterial connection. Normally related great vessels. Systemic veins: SVC: The superior vena cava and left innominate vein appeared of normal caliber, with normal flow. IVC: The inferior vena cava was normal in size and course. IVC Doppler: The flow pattern was normal. Pulmonary veins: The pulmonary veins drained normally to the left atrium. Doppler: Doppler flow pattern was normal in the pulmonary vein(s). Right atrium: Size was normal. Left atrium: Size was normal. Atrial septum: No defect or patent foramen ovale was identified. Tricuspid valve: The valve structure was normal. Doppler: The transtricuspid velocity was within the normal range. There was no evidence for tricuspid stenosis. There was trivial regurgitation. Mitral valve: Valve structure was normal. There is no mitral valve prolapse. Doppler: The transmitral velocity was within the normal range. There was no evidence for stenosis. There was no significant regurgitation. Right ventricle: The cavity size was normal. Wall thickness was normal. Systolic function was normal. Doppler: Estimated peak pressure was at least 18 mmHg. RV outflow tract: There was no obstruction. Left ventricle: The cavity size was normal. Wall thickness was normal. Systolic function was normal. There were no regional wall motion abnormalities. Doppler: Left ventricular diastolic function parameters were normal. LV outflow tract: There was no outflow obstruction. Ventricular septum: Thickness was normal. The septum was intact. Pulmonic valve: Leaflets exhibited normal thickness and normal cuspal separation. Doppler: The transpulmonic velocity was within the normal range. Aortic valve: The valve was trileaflet. Leaflets exhibited normal thickness and normal cuspal separation. Doppler: Transaortic velocity was within the normal range. There was no stenosis. There was no regurgitation. Pulmonary artery: The main pulmonary artery was normal, with normal-sized, confluent proximal branch pulmonary arteries. Aorta: There was a normal-sized aortic arch with normal brachiocephalic branching. The root was normal in size. The ascending aorta size was normal. Coronary arteries: The size and course of the left main, proximal left anterior descending, and proximal right coronary arteries were normal. Right coronary artery: Flow was normal. Left main coronary artery: Flow was normal. Left anterior descending: Flow was normal. Extracardiac shunting: No ductal shunt was detected by Doppler. Pericardium: There was no pericardial effusion. The pericardium was normal in appearance. Summary: - ??Diagnoses: No evidence of systolic or diastolic dysfunction. No pathologic valve stenosis or regurgitation. No pericardial effusion. Prepared and signed by Merary Martinez MD Signed 05/26/2012 13:16:28 System measurement tables CW TR Vmax: 2.2 m/s TR maxP.5 mmHg MM %FS: 37.9 % EDV(Teich): 86.7 ml EF(Teich): 68.3 % ESV(Teich): 27.5 ml IVSd: 6 mm IVSs: 10.1 mm LVIDd: 43.8 mm LVIDs: 27.2 mm LVPWd: 5.1 mm LVPWs: 11.1 mm LVd Mass: 70.7 g LVd Mass (ASE): 68.1 g LVd Mass Ind (ASE): 54 g/m2 LVd Mass Index: 56.1 g/m2 LVs Mass: 83.4 g LVs Mass (ASE): 78.2 g LVs Mass Ind (ASE): 62.1 g/m2 LVs Mass Index: 66.2 g/m2 SV(Teich): 59.2 ml Procedure Note 05/26/2012 [facility] , Transthoracic Echocardiogram 2D, M-mode, Doppler, and Color Doppler Name: LAVELLE REYES MR #: [id number] Study date: 05/26/2012 Age: 11 years : 2000 Gender: Male Ht: 58.9 in / 149.5 cm Wt: 82.1 lb / 37.3 kg BSA: 1.26 m?? 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 Anatomic relationships: Visceral situs: normal. Left sided cardiac apex (levocardia). Normal atrial situs (atrial situs solitus). Concordant atrioventricular alignment. Ventricular d-loop. Normal infundibular anatomy. Concordant ventriculoarterial connection. Normally related great vessels. Systemic veins: SVC: The superior vena cava and left innominate vein appeared of normal caliber, with normal flow. IVC: The inferior vena cava was normal in size and course. IVC Doppler: The flow pattern was normal. Pulmonary veins: The pulmonary veins drained normally to the left atrium. Doppler: Doppler flow pattern was normal in the pulmonary vein(s). Right atrium: Size was normal. Left atrium: Size was normal. Atrial septum: No defect or patent foramen ovale was identified. Tricuspid valve: The valve structure was normal. Doppler: The transtricuspid velocity was within the normal range. There was no evidence for tricuspid stenosis. There was trivial regurgitation. Mitral valve: Valve structure was normal. There is no mitral valve prolapse. Doppler: The transmitral velocity was within the normal range. There was no evidence for stenosis. There was no significant regurgitation. Right ventricle: The cavity size was normal. Wall thickness was normal. Systolic function was normal. Doppler: Estimated peak pressure was at least 18 mmHg. RV outflow tract: There was no obstruction. Left ventricle: The cavity size was normal. Wall thickness was normal. Systolic function was normal. There were no regional wall motion abnormalities. Doppler: Left ventricular diastolic function parameters were normal. LV outflow tract: There was no outflow obstruction. Ventricular septum: Thickness was normal. The septum was intact. Pulmonic valve: Leaflets exhibited normal thickness and normal cuspal separation. Doppler: The transpulmonic velocity was within the normal range. Aortic valve: The valve was trileaflet. Leaflets exhibited normal thickness and normal cuspal separation. Doppler: Transaortic velocity was within the normal range. There was no stenosis. There was no regurgitation. Pulmonary artery: The main pulmonary artery was normal, with normal-sized, confluent proximal branch pulmonary arteries. Aorta: There was a normal-sized aortic arch with normal brachiocephalic branching. The root was normal in size. The ascending aorta size was normal. Coronary arteries: The size and course of the left main, proximal left anterior descending, and proximal right coronary arteries were normal. Right coronary artery: Flow was normal. Left main coronary artery: Flow was normal. Left anterior descending: Flow was normal. Extracardiac shunting: No ductal shunt was detected by Doppler. Pericardium: There was no pericardial effusion. The pericardium was normal in appearance. Summary: - Diagnoses: No evidence of systolic or diastolic dysfunction. No pathologic valve stenosis or regurgitation. No pericardial effusion. Prepared and signed by Merary Martinez MD Signed 05/26/2012 13:16:28 System measurement tables CW TR Vmax: 2.2 m/s TR maxP.5 mmHg MM %FS: 37.9 % EDV(Teich): 86.7 ml EF(Teich): 68.3 % ESV(Teich): 27.5 ml IVSd: 6 mm IVSs: 10.1 mm LVIDd: 43.8 mm LVIDs: 27.2 mm LVPWd: 5.1 mm LVPWs: 11.1 mm LVd Mass: 70.7 g LVd Mass (ASE): 68.1 g LVd Mass Ind (ASE): 54 g/m2 LVd Mass Index: 56.1 g/m2 LVs Mass: 83.4 g LVs Mass (ASE): 78.2 g LVs Mass Ind (ASE): 62.1 g/m2 LVs Mass Index: 66.2 g/m2 SV(Teich): 59.2 ml Kenzie Cobb MD ECHO ORDERABLES [facility] [address] [place] [address] * (ABNORMAL) CYTOKINE PANEL 12 (05/26/2012 3:24 AM CDT) IL-2 <5 0 - 12 pg/mL 06/03/2012 9:42 PM CDT [facility] IL-2 Receptor ([place]) 789 0 - 1033 pg/mL 06/03/2012 9:42 PM CDT [facility] IL-12 <5 0 - 6 pg/mL 06/03/2012 9:42 PM CDT [facility] Interferon Gamma <5 0 - 5 pg/mL 06/03/2012 9:42 PM CDT [facility] IL-4 <5 0 - 5 pg/mL 06/03/2012 9:42 PM CDT [facility] IL-5 28(H) 0 - 5 pg/mL 06/03/2012 9:42 PM CDT [facility] IL-10 <5 0 - 18 pg/mL 06/03/2012 9:42 PM CDT [facility] IL-13 <5 0 - 5 pg/mL 06/03/2012 9:42 PM CDT [facility] IL-1 Beta <5 0 - 36 pg/mL 06/03/2012 9:42 PM CDT [facility] IL-6 <5 0 - 5 pg/mL 06/03/2012 9:42 PM CDT [facility] IL-8 <5 0 - 5 pg/mL 06/03/2012 9:42 PM CDT [facility] Tumor Necrosis Factor Alpha <5 0 - 22 pg/mL 06/03/2012 9:42 PM CDT [facility] Comment: INTERPRETIVE INFORMATION: Cytokines Results are to be used for research purposes or in attempts to understand the pathophysiology of immune, infectious, or inflammatory disorders. This test was developed and its performance characteristics determined by [employer]. The U.S. Food and Drug Administration has not approved or cleared this test; however, FDA clearance or approval is not currently required for clinical use. The results are not intended to be used as the sole means for clinical diagnosis or patient management decisions. Blood specimen (specimen) BLOOD SPECIMEN / Unknown 05/26/2012 3:24 AM CDT 05/26/2012 3:28 PM CDT Farhana Marti MD LAB - CHEMISTRY RICHIE ROBINS Performing Organization Address [facility] Co de Phone Number [facility] [address] [place] [address] * LAB RESULTS ORDER (05/13/2012 6:59 AM SUPPORT SERVICES MANAGER) Only the most recent of5 resultswithin the time period is included. Narrative 05/13/2012 6:59 AM SUPPORT SERVICES MANAGER Procedure Note Document, Scanned - 05/13/2012 6:59 AM CST Scanned Document LAB - THERAPEUTIC DR STEINER MONITORING ORDERABLES * ENDOSCOPY, COLON, DIAGNOSTIC (05/05/2012 9:33 AM SUPPORT SERVICES MANAGER) Narrative [facility] - 05/05/2012 9:33 AM SUPPORT SERVICES MANAGER Procedure Note Kenzie Cobb MD - 05/05/2012 9:33 AM CST Kenzie Cobb MD GI PROCEDURE ORDERAB LES Performing Organization Address [facility] Co de Phone Number [facility] [address] [place] [address] * EGD (05/05/2012 9:01 AM SUPPORT SERVICES MANAGER) Narrative [facility] - 05/05/2012 9:01 AM SUPPORT SERVICES MANAGER Procedure Note Kenzie Cobb MD - 05/05/2012 9:00 AM CST Kenzie Cobb MD GI PROCEDURE ORDERAB LES Performing Organization Address [facility] Co de Phone Number [facility] [address] [place] [address] * IMAGING/RADIOLOGY/XRAY RESULTS ORDER (01/30/2012 10:39 AM SUPPORT SERVICES MANAGER) Only the most recent of3 resultswithin the time period is included. Anatomical Region Laterality Modality Other Narrative 01/30/2012 10:39 AM SUPPORT SERVICES MANAGER Procedure Note Document, Scanned - 01/30/2012 10:39 AM CST Scanned Document IMAGING * CT CHEST WITH CONTRAST (01/11/2012 11:41 AM CDT) Anatomical Region Laterality Modality Chest Computed Tomogra phy 01/11/2012 12:5 3 PM CDT Impressions 01/11/2012 12:53 PM CDT Resolved nodular infiltrates previously identified. No definite pulmonary disease at this time. Narrative 01/11/2012 12:53 PM CDT EXAMINATION: CT scan of the chest with intravenous contrast dated Jan 11, 2012 11:43:07 AM. HISTORY: Eosinophilia, Followup previously documented Ill-defined nodular densities in the Right upper and lower lobes. TECHNIQUE: Utilizing 1.25 mm collimation images of the chest, abdomen, and pelvis were obtained following intravenous administration of 86 cc of Optiray-320. 1.25 and 5 mm reconstructions were made with lung and soft tissue algorithms. FINDINGS: Comparison is made to the prior study of November 18. Ill-defined nodular opacities previously identified have resolved. At present, other than a small amount of dependent atelectasis seen in the deep sulcus on the right. The lung parenchyma is clear without evidence of any focal infiltrate, or effusion. No pleural fluid, or nodular pleural thickening is identified. The mediastinal structures appear normal. No hilar or mediastinal adenopathy is appreciated. No axillary adenopathy seen. The upper abdominal viscera as visualized in the lower sections of this study appear unremarkable. Procedure Note Travis Best - 01/11/2012 EXAMINATION: CT scan of the chest with intravenous contrast dated Jan 11, 2012 11:43:07 AM. HISTORY: Eosinophilia, Followup previously documented Ill-defined nodular densities in the Right upper and lower lobes. TECHNIQUE: Utilizing 1.25 mm collimation images of the chest, abdomen, and pelvis were obtained following intravenous administration of 86 cc of Optiray-320. 1.25 and 5 mm reconstructions were made with lung and soft tissue algorithms. FINDINGS: Comparison is made to the prior study of November 18. Ill-defined nodular opacities previously identified have resolved. At present, other than a small amount of dependent atelectasis seen in the deep sulcus on the right. The lung parenchyma is clear without evidence of any focal infiltrate, or effusion. No pleural fluid, or nodular pleural thickening is identified. The mediastinal structures appear normal. No hilar or mediastinal adenopathy is appreciated. No axillary adenopathy seen. The upper abdominal viscera as visualized in the lower sections of this study appear unremarkable. IMPRESSION Resolved nodular infiltrates previously identified. No definite pulmonary disease at this time. Anthony Glover MD CT ORDERABLES * IMMUNOSCORE IGE INTERP (01/09/2012 5:25 PM CDT) Immunocap Score See Note 2 2:17 AM CDT [facility] Comment: REFERENCE INTERVAL: Allergen, Interpretation Less than 0.10 kU/L......No significant level detected 0.10-0.34 kU/L...........Clinical relevance undetermined 0.35-0.70 kU/L...........Low 0.71-3.50 kU/L...........Moderate 3.51-17.50 kU/L..........High 17.51 kU/L or Greater....Very High Allergen results of 0.10-0.34 kU/L are intended for specialist use as the clinical relevance is undetermined. Even though increasing ranges are reflective of increasing concentrations of allergen-specific IgE, these concentrations may not correlate with the degree of clinical response or skin testing results when challenged with a specific allergen. The correlation of allergy laboratory results with clinical history and in vivo reactivity to specific allergens is essential. A negative test may not rule out clinical allergy or even anaphylaxis. Blood specimen (specimen) BLOOD SPECIMEN / Unknown 01/09/2012 5:25 PM CDT 01/09/2012 5:37 PM CDT Shirley Garcia MD LAB - SEROLOGY ORDER RADHA [facility] [address] [place] [address] * (ABNORMAL) ALLERGEN INHALANT COMPREHENSIVE PROFILE (01/09/2012 5:25 PM CDT) IgE Total 87 2 - 696 IU/mL 01/12/2012 2:17 AM CDT [facility] Comment: REFERENCE INTERVAL: Immunoglobulin E, Serum Access complete set of age- and/or gender-specific reference intervals for this test in the [facility] Test Directory ([facility]). Allergen Common Ragweed <0.10 <=0.34 kU/L 01/12/2012 2:17 AM CDT [facility] Allergen Mugwort <0.10 <=0.34 kU/L 01/12/2012 2:17 AM CDT [facility] Allergen Macedonian Plantain <0.10 <=0.34 kU/L 01/12/2012 2:17 AM CDT [facility] Allergen Scott's Quarters 0.12 <=0.34 kU/L 01/12/2012 2:17 AM CDT [facility] Allergen Albanian Thistle 0.14 <=0.34 kU/L 01/12/2012 2:17 AM CDT [facility] Allergen B[place] Grass <0.10 <=0.34 kU/L 01/12/2012 2:17 AM CDT [facility] Allergen [place] Grass Perennial <0.10 <=0.34 kU/L 01/12/2012 2:17 AM CDT [facility] Allergen [place] Grass <0.10 <=0.34 kU/L 01/12/2012 2:17 AM CDT [facility] Allergen Deanne Grass <0.10 <=0.34 kU/L 01/12/2012 2:17 AM CDT [facility] Allergen John Grass <0.10 <=0.34 kU/L 01/12/2012 2:17 AM CDT [facility] Allergen Mountain Percival <0.10 <=0.34 kU/L 01/12/2012 2:17 AM CDT [facility] Allergen Lamont 0.13 <=0.34 kU/L 01/12/2012 2:17 AM CDT [facility] Allergen Elm 0.11 <=0.34 kU/L 01/12/2012 2:17 AM CDT [facility] Allergen Poinsett Tree <0.10 <=0.34 kU/L 01/12/2012 2:17 AM CDT [facility] Allergen [place] Tree <0.10 <=0.34 kU/L 01/12/2012 2:17 AM CDT [facility] Allergen [place] Tree <0.10 <=0.34 kU/L 01/12/2012 2:17 AM CDT [facility] Allergen P. Notatum <0.10 <=0.34 kU/L 01/12/2012 2:17 AM CDT [facility] Allergen Hormodendrum <0.10 <=0.34 kU/L 01/12/2012 2:17 AM CDT [facility] Allergen A fumigatus IgE <0.10 <=0.34 kU/L 01/12/2012 2:17 AM CDT [facility] Allergen Alternaria alternata 8.75(H) <=0.34 kU/L 01/12/2012 2:17 AM CDT [facility] Allergen Dermatophagoides pteronyssinus <0.10 <=0.34 kU/L 01/12/2012 2:17 AM CDT [facility] Allergen Dermatophagoides farinae <0.10 <=0.34 kU/L 01/12/2012 2:17 AM CDT [facility] Allergen Cat Dander 14.00(H) <=0.34 kU/L 01/12/2012 2:17 AM T [facility] Allergen Dog Dander 0.66(H) <=0.34 kU/L 01/12/2012 2:17 AM CDT [facility] Allergen Horse Dander <0.10 <=0.34 kU/L 01/12/2012 2:17 AM CDT [facility] Allergen Cow Dander 0.15 <=0.34 kU/L 01/12/2012 2:17 AM CDT [facility] Allergen House Dust Barakat 3.49(H) <=0.34 kU/L 01/12/2012 2:17 AM CDT [facility] Immunocap Score See Note 2 2:17 AM CDT [facility] Comment: REFERENCE INTERVAL: Allergen, Interpretation Less than 0.10 kU/L......No significant level detected 0.10-0.34 kU/L...........Clinical relevance undetermined 0.35-0.70 kU/L...........Low 0.71-3.50 kU/L...........Moderate 3.51-17.50 kU/L..........High 17.51 kU/L or Greater....Very High Allergen results of 0.10-0.34 kU/L are intended for specialist use as the clinical relevance is undetermined. Even though increasing ranges are reflective of increasing concentrations of allergen-specific IgE, these concentrations may not correlate with the degree of clinical response or skin testing results when challenged with a specific allergen. The correlation of allergy laboratory results with clinical history and in vivo reactivity to specific allergens is essential. A negative test may not rule out clinical allergy or even anaphylaxis. Blood specimen (specimen) BLOOD SPECIMEN / Unknown 01/09/2012 5:25 PM CDT 01/09/2012 5:37 PM CDT Shirley Garcia MD LAB - SEROLOGY ORDER RADHA [facility] [address] [place] [address] * (ABNORMAL) ALLERGEN FOOD CEREAL PROFILE (01/09/2012 5:25 PM CDT) Allergen Barley 0.77(H) <=0.34 kU/L 01/12/2012 2:17 AM CDT [facility] Allergen Gluten 2.11(H) <=0.34 kU/L 01/12/2012 2:17 AM CDT [facility] Allergen Rice 0.24 <=0.34 kU/L 01/12/2012 2:17 AM CDT [facility] Allergen [place] IgE 0.66(H) <=0.34 kU/L 01/12/2012 2:17 AM CDT [facility] Allergen Wheat 2.06(H) <=0.34 kU/L 01/12/2012 2:17 AM CDT [facility] Immunocap Score See Note 2 2:17 AM CDT [facility] Comment: REFERENCE INTERVAL: Allergen, Interpretation Less than 0.10 kU/L......No significant level detected 0.10-0.34 kU/L...........Clinical relevance undetermined 0.35-0.70 kU/L...........Low 0.71-3.50 kU/L...........Moderate 3.51-17.50 kU/L..........High 17.51 kU/L or Greater....Very High Allergen results of 0.10-0.34 kU/L are intended for specialist use as the clinical relevance is undetermined. Even though increasing ranges are reflective of increasing concentrations of allergen-specific IgE, these concentrations may not correlate with the degree of clinical response or skin testing results when challenged with a specific allergen. The correlation of allergy laboratory results with clinical history and in vivo reactivity to specific allergens is essential. A negative test may not rule out clinical allergy or even anaphylaxis. Blood specimen (specimen) BLOOD SPECIMEN / Unknown 01/09/2012 5:25 PM CDT 01/09/2012 5:37 PM CDT Shirley Garcia MD LAB - SEROLOGY ORDER RADHA [facility] [address] [place] [address] * (ABNORMAL) ALLERGEN FOOD NUT MIX PROFILE (01/09/2012 5:25 PM CDT) Allergen Solon 0.19 <=0.34 kU/L 01/12/2012 2:17 AM CDT [facility] Allergen Coconut <0.10 <=0.34 kU/L 01/12/2012 2:17 AM CDT [facility] Allergen Peanut 0.91(H) <=0.34 kU/L 01/12/2012 2:17 AM CDT [facility] Allergen Pecan Nut <0.10 <=0.34 kU/L 01/12/2012 2:17 AM CDT [facility] Allergen Sesame Seed 0.30 <=0.34 kU/L 01/12/2012 2:17 AM CDT [facility] Immunocap Score See Note 2 2:17 AM CDT [facility] Comment: REFERENCE INTERVAL: Allergen, Interpretation Less than 0.10 kU/L......No significant level detected 0.10-0.34 kU/L...........Clinical relevance undetermined 0.35-0.70 kU/L...........Low 0.71-3.50 kU/L...........Moderate 3.51-17.50 kU/L..........High 17.51 kU/L or Greater....Very High Allergen results of 0.10-0.34 kU/L are intended for specialist use as the clinical relevance is undetermined. Even though increasing ranges are reflective of increasing concentrations of allergen-specific IgE, these concentrations may not correlate with the degree of clinical response or skin testing results when challenged with a specific allergen. The correlation of allergy laboratory results with clinical history and in vivo reactivity to specific allergens is essential. A negative test may not rule out clinical allergy or even anaphylaxis. Blood specimen (specimen) BLOOD SPECIMEN / Unknown 01/09/2012 5:25 PM CDT 01/09/2012 5:37 PM CDT Shirley Garcia MD LAB - CHEMISTRY RICHIE ROBINS Performing Organization Address City/[facility] Co de Phone Number [facility] [address] [address] [place] [address] * ALLERGEN CHICKEN MEAT IGE (01/09/2012 5:25 PM CDT) Allergen Chicken Meat <0.10 <=0.34 kU/L 01/12/2012 2:17 AM CDT [facility] Blood specimen (specimen) BLOOD SPECIMEN / Unknown 01/09/2012 5:25 PM CDT 01/09/2012 5:37 PM CDT Shirley Garcia MD LAB - CHEMISTRY [facility] Performing Organization Address [facility] Co de Phone Number [facility] [address] [address] [place] [address] * ALLERGEN BANANA IGE (01/09/2012 5:25 PM CDT) Allergen Banana <0.10 <=0.34 kU/L 01/12/2012 2:17 AM CDT [facility] Blood specimen (specimen) BLOOD SPECIMEN / Unknown 01/09/2012 5:25 PM CDT 01/09/2012 5:37 PM CDT Shirley Garcia MD LAB - CHEMISTRY RICHIE ROBINS Performing Organization Address [facility] de Phone Number [facility] [address] [place] [address] * ALLERGEN COCKROACH IGE (01/09/2012 5:25 PM CDT) Allergen Cockroach Lithuanian <0.10 <=0.34 kU/L 01/12/2012 2:17 AM CDT [facility] Comment: INTERPRETIVE INFORMATION: ALLERGEN, Lithuanian Cockroach Analyte specific reagents (ASR) are used in many laboratory tests necessary for standard medical care and generally do not require U.S. Food and Drug Administration (FDA) approval or clearance. This test was developed and its performance characteristics determined by [employer]. The U.S. Food and Drug Administration has not approved or cleared this test; however, FDA clearance or approval is not currently required for clinical use. The results are not intended to be used as the sole means for clinical diagnosis or patient management decisions. This test should not be regarded as investigational or for research use. Blood specimen (specimen) BLOOD SPECIMEN / Unknown 01/09/2012 5:25 PM CDT 01/09/2012 5:37 PM CDT Shirley Garcia MD LAB - CHEMISTRY RICHIE ROBINS Performing Organization Address [facility] de Phone Number [facility] [address] [place] [address] * ALLERGEN WALNUT (F4) IGE (01/09/2012 5:25 PM CDT) Allergen [employer] <0.10 <=0.34 kU/L 01/12/2012 2:17 AM CDT [facility] Blood specimen (specimen) BLOOD SPECIMEN / Unknown 01/09/2012 5:25 PM CDT 01/09/2012 5:37 PM CDT Shirley Garcia MD LAB - SEROLOGY ORDER RADHA Performing Organization Address [facility] Co de Phone Number [facility] [address] [place] [address] * ALLERGEN MOUSE IGE (01/09/2012 5:25 PM CDT) Allergen Mouse Urine IgE <0.10 <=0.34 kU/L 01/12/2012 2:17 AM CDT [facility] Blood specimen (specimen) BLOOD SPECIMEN / Unknown 01/09/2012 5:25 PM CDT 01/09/2012 5:37 PM CDT Shirley Garcia MD LAB - SEROLOGY ORDER RADHA Performing Organization Address [facility] [place] [address] * (ABNORMAL) INTERLEUKIN-5 (01/09/2012 5:25 PM CDT) [facility] IL-5 8(H) 0 - 5 pg/mL 01/14/2012 5:24 PM [facility] Comment: INTERPRETIVE INFORMATION: Cytokines Results are to be used for research purposes or in attempts to understand the pathophysiology of immune, infectious, or inflammatory disorders. This test was developed and its performance characteristics determined by [employer]. The U.S. Food and Drug Administration has not approved or cleared this test; however, FDA clearance or approval is not currently required for clinical use. The results are not intended to be used as the sole means for clinical diagnosis or patient management decisions. Blood specimen (specimen) BLOOD SPECIMEN / Unknown 01/09/2012 5:25 PM CDT 01/09/2012 6:18 PM CDT Shirley Garcia MD LAB - CHEMISTRY RICHIE ROBINS Performing Organization Address [facility] [place] [address] * ALLERGEN TURKEY IGE (01/09/2012 5:25 PM CDT) Allergen Korbel <0.10 <=0.34 kU/L 01/12/2012 2:17 AM CDT [facility] Blood specimen (specimen) BLOOD SPECIMEN / Unknown 01/09/2012 5:25 PM CDT 01/09/2012 5:37 PM CDT Shirley Garcia MD LAB - SEROLOGY ORDER RADHA Performing Organization Address City/[facility] Co de Phone Number [facility] [address] [place] [address] * ALLERGEN APPLE IGE (01/09/2012 5:25 PM CDT) Allergen Apple 0.10 <=0.34 kU/L 01/12/2012 2:17 AM CDT [facility] Blood specimen (specimen) BLOOD SPECIMEN / Unknown 01/09/2012 5:25 PM CDT 01/09/2012 5:37 PM CDT Shirley Garcia MD LAB - SEROLOGY ORDER RADHA Performing Organization Address [facility] de Phone Number [facility] [address] [place] [address] * (ABNORMAL) ALLERGEN FOOD COMMON ADULT FOOD PROFILE (01/09/2012 5:25 PM CDT) Allergen [employer] <0.10 <=0.34 kU/L 01/12/2012 2:17 AM CDT [facility] Allergen Egg White <0.10 <=0.34 kU/L 01/12/2012 2:17 AM CDT [facility] Allergen Milk (Cow) 0.72(H) <=0.34 kU/L 01/12/2012 2:17 AM CDT [facility] Allergen Wheat 2.08(H) <=0.34 kU/L 01/12/2012 2:17 AM CDT [facility] Allergen Ashton 0.19 <=0.34 kU/L 01/12/2012 2:17 AM CDT [facility] Allergen Peanut 0.95(H) <=0.34 kU/L 01/12/2012 2:17 AM CDT [facility] Allergen Soybean 0.19 <=0.34 kU/L 01/12/2012 2:17 AM CDT [facility] Allergen Shrimp <0.10 <=0.34 kU/L 01/12/2012 2:17 AM CDT [facility] Allergen Clam <0.10 <=0.34 kU/L 01/12/2012 2:17 AM CDT [facility] Allergen Codfish <0.10 <=0.34 kU/L 01/12/2012 2:17 AM CDT [facility] Allergen Scallop <0.10 <=0.34 kU/L 01/12/2012 2:17 AM CDT [facility] IgE Total 87 2 - 696 IU/mL 01/12/2012 2:17 AM CDT [facility] Comment: REFERENCE INTERVAL: Immunoglobulin E, Serum Access complete set of age- and/or gender-specific reference intervals for this test in the [facility] Test Directory ([facility]). Immunocap Score See Note 2 2:17 AM CDT [facility] Comment: REFERENCE INTERVAL: Allergen, Interpretation Less than 0.10 kU/L......No significant level detected 0.10-0.34 kU/L...........Clinical relevance undetermined 0.35-0.70 kU/L...........Low 0.71-3.50 kU/L...........Moderate 3.51-17.50 kU/L..........High 17.51 kU/L or Greater....Very High Allergen results of 0.10-0.34 kU/L are intended for specialist use as the clinical relevance is undetermined. Even though increasing ranges are reflective of increasing concentrations of allergen-specific IgE, these concentrations may not correlate with the degree of clinical response or skin testing results when challenged with a specific allergen. The correlation of allergy laboratory results with clinical history and in vivo reactivity to specific allergens is essential. A negative test may not rule out clinical allergy or even anaphylaxis. Blood specimen (specimen) BLOOD SPECIMEN / Unknown 01/09/2012 5:25 PM CDT 01/09/2012 5:37 PM CDT Shirley Garcia MD LAB - CHEMISTRY RICHIE ROBINS [facility] Organization Address City/State/ZIP Co de Phone Number [facility] [address] [place] [address] * (ABNORMAL) ALLERGEN BEEF IGE (01/09/2012 5:25 PM CDT) Allergen Beef 0.38(H) <=0.34 kU/L 01/12/2012 2:17 AM CDT [facility] Blood specimen (specimen) BLOOD SPECIMEN / Unknown 01/09/2012 5:25 PM CDT 01/09/2012 5:37 PM CDT Shirley Garcia MD LAB - CHEMISTRY RICHIE ROBINS [facility] Organization Address City/State/ZIP Co de Phone Number [facility] [address] [place] [address] * ALLERGEN FOOD SALAD PROFILE (01/09/2012 5:25 PM CDT) Allergen Celery <0.10 <=0.34 kU/L 01/12/2012 2:17 AM CDT [facility] Allergen Lettuce <0.10 <=0.34 kU/L 01/12/2012 2:17 AM CDT [facility] Allergen Cuming 0.19 <=0.34 kU/L 01/12/2012 2:17 AM CDT [facility] Allergen Parsley <0.10 <=0.34 kU/L 01/12/2012 2:17 AM CDT [facility] Allergen Tomato 0.24 <=0.34 kU/L 01/12/2012 2:17 AM CDT [facility] Immunocap Score See Note 2 2:17 AM CDT [facility] Comment: REFERENCE INTERVAL: Allergen, Interpretation Less than 0.10 kU/L......No significant level detected 0.10-0.34 kU/L...........Clinical relevance undetermined 0.35-0.70 kU/L...........Low 0.71-3.50 kU/L...........Moderate 3.51-17.50 kU/L..........High 17.51 kU/L or Greater....Very High Allergen results of 0.10-0.34 kU/L are intended for specialist use as the clinical relevance is undetermined. Even though increasing ranges are reflective of increasing concentrations of allergen-specific IgE, these concentrations may not correlate with the degree of clinical response or skin testing results when challenged with a specific allergen. The correlation of allergy laboratory results with clinical history and in vivo reactivity to specific allergens is essential. A negative test may not rule out clinical allergy or even anaphylaxis. Blood specimen (specimen) BLOOD SPECIMEN / Unknown 01/09/2012 5:25 PM CDT 01/09/2012 5:37 PM CDT Shirley Garcia MD LAB - CHEMISTRY RICHIE ROBINS [facility] Organization Address City/State/ZIP Co de Phone Number [facility] [address] [address] [place] [address] * ALLERGEN FOOD SEAFOOD PROFILE (01/09/2012 5:25 PM CDT) Allergen Codfish <0.10 <=0.34 kU/L 01/12/2012 2:17 AM CDT [facility] Allergen Crab <0.10 <=0.34 kU/L 01/12/2012 2:17 AM CDT [facility] Allergen Lobster <0.10 <=0.34 kU/L 01/12/2012 2:17 AM CDT [facility] Allergen Shrimp <0.10 <=0.34 kU/L 01/12/2012 2:17 AM CDT [facility] Allergen Tuna <0.10 <=0.34 kU/L 01/12/2012 2:17 AM CDT [facility] Immunocap Score See Note 2 2:17 AM CDT [facility] Comment: REFERENCE INTERVAL: Allergen, Interpretation Less than 0.10 kU/L......No significant level detected 0.10-0.34 kU/L...........Clinical relevance undetermined 0.35-0.70 kU/L...........Low 0.71-3.50 kU/L...........Moderate 3.51-17.50 kU/L..........High 17.51 kU/L or Greater....Very High Allergen results of 0.10-0.34 kU/L are intended for specialist use as the clinical relevance is undetermined. Even though increasing ranges are reflective of increasing concentrations of allergen-specific IgE, these concentrations may not correlate with the degree of clinical response or skin testing results when challenged with a specific allergen. The correlation of allergy laboratory results with clinical history and in vivo reactivity to specific allergens is essential. A negative test may not rule out clinical allergy or even anaphylaxis. Blood specimen (specimen) BLOOD SPECIMEN / Unknown 01/09/2012 5:25 PM CDT 01/09/2012 5:37 PM CDT Shirley Garcia MD LAB - CHEMISTRY RICHIE ROBINS [facility] Organization Address City/State/ZIP Co de Phone Number [facility] [address] [address] [place] [address] * ALLERGEN FOOD VEGETABLE PROFILE (01/09/2012 5:25 PM CDT) Allergen Pea 0.15 <=0.34 kU/L 01/12/2012 2:17 AM CDT [facility] Allergen Carrot <0.10 <=0.34 kU/L 01/12/2012 2:17 AM CDT [facility] Allergen Ashton 0.14 <=0.34 kU/L 01/12/2012 2:17 AM CDT [facility] Allergen Potato 0.15 <=0.34 kU/L 01/12/2012 2:17 AM CDT [facility] Allergen White Boland 0.32 <=0.34 kU/L 01/12/2012 2:17 AM CDT [facility] Immunocap Score See Note 2 2:17 AM CDT [facility] Comment: REFERENCE INTERVAL: Allergen, Interpretation Less than 0.10 kU/L......No significant level detected 0.10-0.34 kU/L...........Clinical relevance undetermined 0.35-0.70 kU/L...........Low 0.71-3.50 kU/L...........Moderate 3.51-17.50 kU/L..........High 17.51 kU/L or Greater....Very High Allergen results of 0.10-0.34 kU/L are intended for specialist use as the clinical relevance is undetermined. Even though increasing ranges are reflective of increasing concentrations of allergen-specific IgE, these concentrations may not correlate with the degree of clinical response or skin testing results when challenged with a specific allergen. The correlation of allergy laboratory results with clinical history and in vivo reactivity to specific allergens is essential. A negative test may not rule out clinical allergy or even anaphylaxis. Blood specimen (specimen) BLOOD SPECIMEN / Unknown 01/09/2012 5:25 PM CDT 01/09/2012 5:37 PM CDT Shirley Garcia MD LAB - CHEMISTRY BRYONE JULIENNE [facility] [address] [place] [address] * CARDIAC EKG ORDER (11/23/2011 8:21 AM CDT) Narrative Transcriptions Document, Scanned - 11/23/2011 8:21 AM CDT Scanned Document CARDIAC SERVICES ORD ERABLES * CATECHOLAMINES URINE FRACTIONATED (11/21/2011 6:27 PM CDT) Dopamine 24 Hour Urine Not Applicable ug/d 11/24/2011 6:27 AM CDT [facility] Comment: REFERENCE INTERVAL: Dopamine, Urine - ug/d Access complete set of age- and/or gender-specific reference intervals for this test in the [facility] Test Directory ([facility]). Collection Time Hours Random hr 11/24/2011 6:27 AM CDT [facility] Volume 24 Hour Urine Random mL 11/24/2011 6:27 AM CDT [facility] Epinephrine Urine ug/L 6 ug/L 11/24/2011 6:27 AM CDT [facility] Norepinephrine Urine 24 ug/L 11/24/2011 6:27 AM CDT [facility] Dopamine Urine 187 ug/L 11/24/2011 6:27 AM CDT [facility] Epinephrine Urine ug/g MANAGER PERIOPERATIVE 9 3 - 58 ug/g MANAGER PERIOPERATIVE 11/24/2011 6:27 AM CDT [facility] Epinephrine 24 Hour Urine Not Applicable ug/d 11/24/2011 6:27 AM T [facility] Comment: REFERENCE INTERVAL: Epinephrine, Urine - ug/d Access complete set of age- and/or gender-specific reference intervals for this test in the [facility] Test Directory ([facility]). Norepinephrine Urine ug/g MANAGER PERIOPERATIVE 36 4 - 105 ug/g MANAGER PERIOPERATIVE 11/24/2011 6:27 AM [facility] Norepinephrine 24 Hour Urine Not Applicable ug/d 11/24/2011 6:27 AM T [facility] Comment: REFERENCE INTERVAL: Norepinephrine, Urine - ug/d Access complete set of age- and/or gender-specific reference intervals for this test in the [facility] Test Directory ([facility]). Dopamine MANAGER PERIOPERATIVE Urine 279 120 - 450 ug/g MANAGER PERIOPERATIVE 11/24/2011 6:27 AM T [facility] Interpretation Catecholamines Urine See Note 11/24/2011 6:27 AM [facility] [place] Comment: TEST INFORMATION: Catecholamines Panel, Urine Free The optimal specimen for this testing is a 24-hour urine collection. Mass per day calculations are not reported for patients younger than 18 years of age and for the following specimen types: a random collection, a collection with duration of less than 20 hours, a collection with duration of greater than 28 hours, or a collection with total volume less than 400 mL. Ratios to creatinine may be useful for these evaluations. Smaller increases in catecholamine concentrations (less than two times the upper limit) usually are the result of physiological stimuli, drugs, or improper specimen collection. Significant elevation of one or more catecholamines (three or more times the upper reference limit) is associated with an increased probability of a neuroendocrine tumor. Access complete set of age- and/or gender-specific reference intervals for this test in the [facility] Test Directory ([facility]). Creatinine Urine 67 mg/dL 11/24/19 12 6:27 AM T [facility] Creatinine 24 Hour Urine Not Applicable 300 - 1300 mg/d 11/24/2011 6:27 AM [facility] [place] [facility] Urine specimen (specimen) TIMED URINE SPECIMEN / Unknown 11/21/2011 6:27 PM CDT 11/21/2011 8:59 PM CDT Selma Mccoy MD LAB - URINE CHEMISTR Y ORDERABLES [facility] [address] [place] [address] * VASOACTIVE INTESTINE PEPTIDE (11/20/2011 2:30 PM CDT) Vasoactive Intestinal Polypeptide 37 0 - 60 pg/mL 11/26/2011 1:37 PM CDT [facility] Comment: INTERPRETIVE INFORMATION: Vasoactive Intestinal Peptide This test was developed and its performance characteristics determined by [employer]. The U.S. Food and Drug Administration has not approved or cleared this test; however, FDA clearance or approval is not currently required for clinical use. The results are not intended to be used as the sole means for clinical diagnosis or patient management decisions. Blood specimen (specimen) BLOOD SPECIMEN / Unknown 11/20/2011 2:30 PM CDT 11/20/2011 2:47 PM CDT Ramiro Perez MD LAB - CHEMISTRY ORD ERABLES Performing Organization Address [facility] Co de Phone Number [facility] [address] [place] [address] * (ABNORMAL) ALLERGEN PEDIATRIC FOOD I PROFILE (11/20/2011 2:09 PM CDT) Allergen Egg White 0.21 <=0.34 kU/L 11/22/2011 5:47 PM CDT [facility] Allergen Milk (Cow) 2.10(H) <=0.34 kU/L 11/22/2011 5:47 PM CDT [facility] Allergen Wheat 3.16(H) <=0.34 kU/L 11/22/2011 5:47 PM CDT [facility] Allergen Oat 0.46(H) <=0.34 kU/L 11/22/2011 5:47 PM CDT [facility] Allergen Soybean <0.10 <=0.34 kU/L 11/22/2011 5:47 PM CDT [facility] Immunocap Score See Note 2 5:47 PM CDT [facility] Comment: REFERENCE INTERVAL: Allergen, Interpretation Less than 0.10 kU/L......No significant level detected 0.10-0.34 kU/L...........Clinical relevance undetermined 0.35-0.70 kU/L...........Low 0.71-3.50 kU/L...........Moderate 3.51-17.50 kU/L..........High 17.51 kU/L or Greater....Very High Allergen results of 0.10-0.34 kU/L are intended for specialist use as the clinical relevance is undetermined. Even though increasing ranges are reflective of increasing concentrations of allergen-specific IgE, these concentrations may not correlate with the degree of clinical response or skin testing results when challenged with a specific allergen. The correlation of allergy laboratory results with clinical history and in vivo reactivity to specific allergens is essential. A negative test may not rule out clinical allergy or even anaphylaxis. Blood specimen (specimen) BLOOD SPECIMEN / Unknown 11/20/2011 2:09 PM CDT 11/20/2011 2:48 PM CDT Nathan Hester MD LAB - CHEMISTRY O RDERABLES [facility] [address] [place] [id number] * CT THORAX ABDOMEN PELVIS W CONT (11/19/2011 3:54 PM CDT) Anatomical Region Laterality Modality Chest, Abdomen, Pelvis Computed Tomography 11/19/2011 4:07 PM CDT Impressions 11/19/2011 4:07 PM CDT 1. Ill-defined nodular densities in the right upper lobe and right lower lobe as above. These are most likely infectious in etiology. Their exact origin is uncertain. Atypical infection such as viral and fungal infection should be considered. 2. No evidence of paraspinal' pancreatic or adrenal mass. No obvious mass involving the terminal ileum or appendix. 3. Minimal amount of free fluid in the cul-de-sac possibly reflecting ongoing resuscitative efforts. 4. Circumaortic left renal vein. Narrative 11/19/2011 4:07 PM CDT Contrast-enhanced CT scan of the chest abdomen and pelvis performed November 19, 2011. History: Diarrhea and episodes of flushing. Helical axial sections were obtained from the thoracic inlet through the symphysis pubis following the administration of 45 cc of Gastroview orally and 82 cc of Optiray-320 intravenously. Coronal reformatted images were created. No prior CT scans are available for comparison. There is soft tissue attenuation material in the anterior mediastinum consistent with residual thymic tissue. There is no evidence of axillary, mediastinal, hilar, or retrocrural lymphadenopathy. There is no evidence of thoracic paraspinal mass. The heart is within normal limits in size and the peripheral pulmonary vascularity is within normal limits. Multiple tiny ill-defined nodular densities are present in the posterior segment of the right upper lobe as well as within the superior and posterior segments of the right lower lobe. There is no evidence of lobar consolidation, pleural effusion, or pneumothorax. No other pulmonary nodules are seen. The liver and spleen are of normal size and uniform attenuation without focal parenchymal abnormality. A 7 mm accessory spleen is seen in the left subphrenic space. The gallbladder and pancreas are normal in appearance. There is no evidence of intra or extra hepatic bile duct dilatation. There is no evidence of adrenal mass. The kidneys are functioning bilaterally without evidence of hydronephrosis or focal cortical abnormality. No abnormal perinephric fluid collections are seen. Note is made of a circumaortic left renal vein. There is no evidence of intestinal obstruction or intestinal perforation. A minimal amount of free intraperitoneal fluid is seen in the cul-de-sac. A normal appendix is identified. The terminal ileum is normal in appearance. There is no evidence of abdominal or pelvic lymphadenopathy. The bladder is distended with urine but otherwise unremarkable. The abdominal aorta and inferior vena cava are unremarkable. A 5 mm sclerotic focus is seen in the left inferior ischial ramus. This most likely represents a benign bone island. The right lamina of L5 is quite small. There is sclerosis of the contralateral lamina at this level. The visualized bony structures are otherwise unremarkable. Procedure Note Allison Earl MD - 11/19/2011 Contrast-enhanced CT scan of the chest abdomen and pelvis performed November 19, 2011. History: Diarrhea and episodes of flushing. Helical axial sections were obtained from the thoracic inlet through the symphysis pubis following the administration of 45 cc of Gastroview orally and 82 cc of Optiray-320 intravenously. Coronal reformatted images were created. No prior CT scans are available for comparison. There is soft tissue attenuation material in the anterior mediastinum consistent with residual thymic tissue. There is no evidence of axillary, mediastinal, hilar, or retrocrural lymphadenopathy. There is no evidence of thoracic paraspinal mass. The heart is within normal limits in size and the peripheral pulmonary vascularity is within normal limits. Multiple tiny ill-defined nodular densities are present in the posterior segment of the right upper lobe as well as within the superior and posterior segments of the right lower lobe. There is no evidence of lobar consolidation, pleural effusion, or pneumothorax. No other pulmonary nodules are seen. The liver and spleen are of normal size and uniform attenuation without focal parenchymal abnormality. A 7 mm accessory spleen is seen in the left subphrenic space. The gallbladder and pancreas are normal in appearance. There is no evidence of intra or extra hepatic bile duct dilatation. There is no evidence of adrenal mass. The kidneys are functioning bilaterally without evidence of hydronephrosis or focal cortical abnormality. No abnormal perinephric fluid collections are seen. Note is made of a circumaortic left renal vein. There is no evidence of intestinal obstruction or intestinal perforation. A minimal amount of free intraperitoneal fluid is seen in the cul-de-sac. A normal appendix is identified. The terminal ileum is normal in appearance. There is no evidence of abdominal or pelvic lymphadenopathy. The bladder is distended with urine but otherwise unremarkable. The abdominal aorta and inferior vena cava are unremarkable. A 5 mm sclerotic focus is seen in the left inferior ischial ramus. This most likely represents a benign bone island. The right lamina of L5 is quite small. There is sclerosis of the contralateral lamina at this level. The visualized bony structures are otherwise unremarkable. IMPRESSION 1. Ill-defined nodular densities in the right upper lobe and right lower lobe as above. These are most likely infectious in etiology. Their exact origin is uncertain. Atypical infection such as viral and fungal infection should be considered. 2. No evidence of paraspinal' pancreatic or adrenal mass. No obvious mass involving the terminal ileum or appendix. 3. Minimal amount of free fluid in the cul-de-sac possibly reflecting ongoing resuscitative efforts. 4. Circumaortic left renal vein. Selma Mccoy MD CT ORDERABLES * CATECHOLAMINES BLOOD FRACTIONATED (11/19/2011 12:03 PM CDT) Norepinephrine 178 85 - 1,250 pg/mL 11/21/2011 6:50 AM CDT [facility] Epinephrine 70 18 - 460 pg/mL 11/21/2011 6:50 AM CDT [facility] Dopamine Normal 0 - 20 pg/mL 11/21/2011 6:50 AM T [facility] Comment: Because of the small quantity of plasma received, a specimen dilution was made. At this dilution, dopamine was not detected and is considered normal. Interpretation Catecholamines See Note 11/21/2011 6:50 AM T [facility] Comment: Small increases in catecholamines (less than 2 times the upper reference limit) usually are the result of physiological stimuli, drugs, or improper specimen collection. Significant elevation of one or more catecholamines (2 or more times the upper reference limit) is associated with an increased probability of a neuroendocrine tumor. Measurement of plasma or urine fractionated metanephrines provides better diagnostic sensitivity than measurement of catecholamines. Blood specimen (specimen) BLOOD SPECIMEN / Unknown 11/19/2011 12:03 PM CDT 11/19/2011 2:13 PM CDT Selma Mccoy MD LAB - CHEMISTRY RICHIE [facility] Organization Address City/State/[facility] Co de Phone Number [facility] [address] [place] [address] * HYDROXYINDOLACETIC ACID URINE TIMED (11/19/2011 12:03 PM CDT) 5-HIAA Urine 1.7 mg/L 11/22/2011 12:47 PM T [facility] Collection Time Hours Random hr 11/22/2011 12:47 PM T [facility] Volume 24 Hour Urine 55 mL 11/22/2011 12:47 PM T [facility] Creatinine Urine 84 mg/dL 11/22/19 12 12:47 PM T [facility] Creatinine 24 Hour Urine Not Applicable 300 - 1300 mg/d 11/22/2011 12:47 PM CDT [facility] 5-HIAA 24 Hour Urine Not Applicable 0 - 15 mg/d 11/22/2011 12:47 PM CDT [facility] 5-HIAA mg/g MANAGER PERIOPERATIVE Urine 2 0 - 14 mg/g 11/22/2011 12:47 PM T [facility] Interpretation 5-HIAA Urine Normal 11/22/2011 12:47 PM T [facility] Comment: INTERPRETIVE INFORMATION: 5-Hydroxyindoleacetic Acid (HIAA), Urine 5-Hydroxyindoleacetic acid (5-HIAA) results are expressed as a ratio to creatinine excretion (mg/g cr). HIAA mass per day (mg/d) is not reported if the urine collection is a random, other than 24 hours, or for a urine volume less than 400 mL/d. No reference interval is available for results reported in units of mg/L. Urine specimen (specimen) TIMED URINE SPECIMEN / Unknown 11/19/2011 12:03 PM CDT 11/19/2011 2:29 PM CDT Selma Mccoy MD LAB - URINE CHEMISTR Y ORDERABLES Performing Organization Address City/[facility]/ZIP Co de Phone Number [facility] [address] [place] [address] * EOSINOPHIL URINE SMEAR (11/16/2011 10:14 PM CDT) Eosinophils Urine NONE SEEN NONE SEEN 11/16/2011 11:49 PM CDT [facility] Urine specimen (specimen) URINE / Unknown 11/16/2011 10:14 PM CDT 11/16/2011 10:35 PM CDT Jacqueline Brower APRN-RECYCLING ATTENDANT LAB - URINE SUSAN LUZ MARIA ORDERABLES Performing Organization Address City/[facility]/ZIP Co de Phone Number [facility] [place] [address] * (ABNORMAL) URINALYSIS ROUTINE AUTO (11/16/2011 10:13 PM CDT) Color UA Yellow Straw, Yellow, Dark Yellow 11/16/2011 10:50 PM CDT [facility] Clarity UA Clear Clear 11/16/2011 10:50 PM CDT [facility] Specific Palmetto UA 1.010 1.003 - 1.030 11/16/2011 10:50 PM CDT [facility] pH UA 7.0 5.0 - 8.0 11/16/2011 10:50 PM CDT [facility] Protein UA Negative Negative 11/16/2011 10:50 PM CDT [facility] Blood UA Negative Negative 11/16/2011 10:50 PM CDT [facility] Leukocyte UA Negative Negative 11/16/2011 10:50 PM CDT [facility] Nitrite UA Negative Negative 11/16/2011 10:50 PM CDT [facility] Glucose UA Negative Negative 11/16/2011 10:50 PM CDT [facility] Ketone UA Trace(A) Negative 11/16/2011 10:50 PM CDT [facility] Bilirubin UA Negative Negative 11/16/2011 10:50 PM CDT [facility] Urobilinogen UA 0.2 0.2 - 1.0 EU/dL 11/16/2011 10:50 PM CDT [facility] Urine Microscopy Urine microscopy to follow (none) 11/16/2011 10:50 PM CDT [facility] Urine specimen (specimen) URINE SPECIMEN OBTAINED BY CLEAN CATCH PROCEDURE / Unknown 11/16/2011 10:13 PM CDT 11/16/2011 10:35 PM CDT Jacqueline Brower MANAGEMENT RETAIL INTERN-RECYCLING ATTENDANT LAB - URINALYSI S ORDERABLES Performing Organization Address [facility] de Phone Number [facility] [address] [place] [phone] * URINALYSIS MICROSCOPIC ONLY (11/16/2011 10:13 PM CDT) RBC UA 0-5 0 - 5 # /hpf 11/16/2011 10:50 PM CDT [facility] WBC UA 0-5 0 - 5 # /hpf 11/16/2011 10:50 PM CDT [facility] Bacteria UA Trace None, Trace 11/16/2011 10:50 PM CDT [facility] Epithelial Cell UA 0-5 0 - 5 11/16/2011 10:50 PM CDT [facility] Mucus UA Trace None, Trace 11/16/2011 10:50 PM CDT [facility] Urine specimen (specimen) URINE SPECIMEN OBTAINED BY CLEAN CATCH PROCEDURE / Unknown 11/16/2011 10:13 PM CDT 11/16/2011 10:35 PM CDT Jacqueline Brower MANAGEMENT RETAIL INTERN-RECYCLING ATTENDANT LAB - URINALYSI S ORDERABLES Performing Organization Address [facility] de Phone Number [facility] [address] [place] [phone] * ENDOSCOPY, COLON, DIAGNOSTIC (11/16/2011 5:19 PM CDT) Narrative Transcriptions Kenzie Cobb MD - 11/16/2011 5:19 PM CDT Kenzie Cobb MD GI PROCEDURE ORDERAB LES Performing Organization Address [facility] de Phone Number [facility] [address] [place] [address] * EGD (11/16/2011 5:01 PM CDT) Narrative Transcriptions Kenzie Cobb MD - 11/16/2011 5:00 PM CDT Kenzie Cobb MD GI PROCEDURE ORDERAB LES Performing Organization Address [facility] de Phone Number [facility] [address] [place] [address] * LEUKEMIA PANEL (11/16/2011 3:42 PM CDT) Pathologist [facility] Leukemia Panel Flow Cyto See Scanned Report 11/26/2011 10:42 AM CDT [facility] Blood specimen (specimen) BONE MARROW SPECIMEN / Unknown 11/16/2011 3:42 PM CDT 11/16/2011 3:45 PM CDT Farhana Marti MD LAB - PATHOLOGY/CYTO LOGY ORDERABLES Performing Organization Address [facility] de Phone Number [facility] [address] * BONE MARROW BIOPSY (STL) (11/16/2011 3:00 PM CDT) Case Report Bone Marrow Report ?Case: [id number] ? --- Authorizing Provider: ??Fahrana Marti MD ? Ordering Provider: ?? Farhana Marti MD ? Ordering Location: ? [facility] ?Collected: ? 11/16/2011 ??3:00 PM ? Pathologist: ? Arsenio Gonzales MD ? Received: ?11/16/2011 ??3:49 PM ?Signed Out: ?11/29/2011 ??8:28 PM (Final) ? Specimens: ?? A) - Bone Marrow Asp + Biopsy ? B) - Bone Marrow Clot ? C) - Bone Marrow Aspirate ? 11/29/2011 8:28 PM [facility] Final Diagnosis BONE MARROW, ASPIRATE SMEAR, CROSS SECTION, AND CORE BIOPSY: - HYPOCELLULAR BONE MARROW (CELLULARITY 40 - 50%) WITH TRILINEAGE HEMATOPOIESIS. - PERIPHERAL AND MARROW EOSINOPHILIA (APPROXIMATELY 32%). - SEE COMMENT AND DESCRIPTION. COMMENT: ??The flow cytometric analysis performed on this bone marrow by [facility] ([id number]) demonstrated no immunophenotypic evidence of a non-Hodgkin lymphoma or acute leukemia. Due to hypocellularity of bone marrow and absence of significant eosinophil dysplasia; the marrow and peripheral eosinophilia is most consistent with a reactive condition. ??However, based on morphological examination of the marrow alone, the possibility of chronic eosinophilic leukemia NOS or myeloid and lymphoid neoplasms with eosinophilia cannot be excluded. ??Correlation with clinical findings and cytogenetic analysis (including FISH panel for eosinophilia) is recommended. ??Dr. González Bearden has seen the case and concurs with the diagnosis. 11/29/2011 8:28 PM [facility] Clinical History The patient is a 11-year-old male with significant peripheral eosinophilia and five weeks history of diarrhea. 11/29/2011 8:28 PM [facility] Peripheral Smear Description ?Peripheral Blood ? Date 11/16/11 ?Quantitative Differential ? WBC Differential ? WBC ?11.9 ??x10E3/ul ?% Blasts ? RBC ? 4.68 x10E6/ul ?% Progranulocytes & Myelocytes Hgb ?14.0 ??mg/dl ? % Metamyelocytes ? Hct% ? 39.0 ??% ? % Band Granulocytes ? MCV ?83.3 ??fl ? 24 % Segmented Granulocytes ?? MCH ?29.9 ??pg ? 40 % Eosinophils ? MCHC ? 35.9 ??% ? % Basophils ? Retic Count ?% ?29 % Lymphocytes ? Plat Count ?278 ?X10E3/ul ?6 % Monocytes ? 1 % Variant Lymphs ? % Other ? 100 % TOTAL ? COMMENTS: ??Significant eosinophilia characterized by mostly mature eosinophils. ??No significant dysplastic changes are identified. ??Basophils also appear normal in number. ??No evidence of myeloproliferation in the peripheral blood is identified. ? BONE MARROW SMEARS: ? Granulocyte Series ?Erythrocyte Series ? % Myeloblasts ? % Pronormoblasts ? % Progranulocytes ? 1.0 % Basophilic Normoblasts ? 0.5 % Myelocytes ?8.5 % Poly Normoblasts ? 2.5 % Metamyelocytes ?7.0 % Ortho Normoblasts ? 13.0 % Band Granulocytes ?16.5 % TOTAL ? 14.0 % Segmented Granulocytes ? 31.5 % Eosinophils & Precursors ? % Basophils & Precursors ? Other Series ? 61.5 % TOTAL ? % Lymphoblasts ? % Prolymphocytes ?15.5 % Lymphocytes ? % Monoblasts ? 0.5 % Promonocytes ? 6.0 % Monocytes ? % Plasma Cells & Precursors ? % Other ? 22.0 ??% TOTAL ? Megakaryocytes: ??Present. ? Histiocytes and Macrophages: ??Present with rare hemophagocytosis. ? Cellularity: ??Aspicular and hemodilute, cellularity cannot be estimated. Aspirate Smear Morphology: ??The bone marrow demonstrates trilineage hematopoiesis. ??There is significant increase in eosinophilic precursors demonstrating different stages of development including eosinophilic myelocytes and metamyelocytes. ??Very rare dividing eosinophils are also identified. ??Overall, the morphology of eosinophil precursors is within normal limits. ??No dysplastic changes, including dysplastic granules within eosinophilic precursors are identified. ??The myeloblasts are also not increased. ??No evidence of granulocytic hyperplasia (other than increased eosinophil precursors is identified. M/E Ratio: ??4:1. ? Clot Sections: ??Clot section performed and demonstrate predominantly blood with small marrow particles. ??The marrow demonstrates trilineage hematopoiesis with numerous eosinophil precursors. Core Biopsy Touch Imprints: ??Touch imprints performed and demonstrate morphology similar to aspirate smear. Core Biopsy: ??The core biopsy performed, is adequate in size and composed of bony trabeculae with marrow elements. ??The cellularity is approximately 40 to 50%. ??The bone demonstrates trilineage hematopoiesis with numerous eosinophilic precursors. ??No increased numbers of immature cells are identified. ??(NU/mal 11/29/2011 8:28 PM CDT [facility] Disclaimer This case has been personally reviewed and interpreted by the attending (teaching) pathologist. 11/29/2011 8:28 PM CDT [facility] Synoptic Report 11/29/2011 8:28 PM T [facility] Miscellaneous samples (specimen) SPECIMEN FROM BONE MARROW OBTAINED BY ASPIRATION AND BIOPSY / Unknown 11/16/2011 3:00 PM CDT 11/16/2011 3:49 PM CDT Miscellaneous samples (specimen) BONE MARROW CLOT SPECIMEN / Unknown 11/16/2011 3:00 PM CDT 11/16/2011 3:49 PM CDT Miscellaneous samples (specimen) SPECIMEN FROM BONE MARROW OBTAINED BY ASPIRATION / Unknown 11/16/2011 3:00 PM CDT 11/16/2011 3:49 PM CDT Farhana Marti MD LAB - PATHOLOGY/CYTO LOGY ORDERABLES Performing Organization Address [facility]/State/[facility] Co de Phone Number [facility] [address] [place] [address] * LUC BLOOD SCREEN W/REFLEX TITER (11/16/2011 3:00 PM CDT) [facility] LUC Negative Negative 11/19/2011 9:21 AM CDT [facility] Blood specimen (specimen) BLOOD SPECIMEN / Unknown 11/16/2011 3:00 PM CDT 11/16/2011 3:19 PM CDT Jacqueline Brower MANAGEMENT RETAIL INTERN-RECYCLING ATTENDANT LAB - CHEMISTRY ORDERABLES Performing Organization Address City/[facility] Co de Phone Number [facility] [address] * IGE BLOOD (11/16/2011 3:00 PM CDT) [facility] IgE Total 127.8 <200 IU/ML 11/16/2011 3:54 PM CDT [facility] Blood specimen (specimen) BLOOD SPECIMEN / Unknown 11/16/2011 3:00 PM CDT 11/16/2011 3:19 PM CDT Jacqueline Virginia Leonarda MANAGEMENT RETAIL INTERN-RECYCLING ATTENDANT LAB - CHEMISTRY ORDERABLES Performing Organization Address [facility] Co de Phone Number [facility] [address] [place] [phone] * CYTOGENETICS CANCER PANEL (11/16/2011 12:00 PM CDT) [facility] Indication for Study ANLL / Abdominal Pain / Eosinophilia 11/27/2011 12:03 PM CDT [facility] Results Cytogenetics Analysis of 20 cells (8 cells karyotyped, GTL-banding) from 24-hour unstimulated and 72-hour Interleukin stimulated bone marrow cultures showed the following chromosome pattern: 46,XY[20] Addendum 11/23/2011 FISH results: Fluorescence In-Situ Hybridization (FISH): Analysis of 200 ??interphase cells hybridized with CHIC2 ??probes* (FIP1L1,LNX,PDGFR A), ??directed onto 4q12, CSF1R (D5S23,Q0F644,CSF 1R/PDGFRB) directed onto 2m67-74 region, FGFR1 and CEP8 directed onto 8p11.2 and chromosome 8 centromere, and CBFB dual color breakapart probes showed the following results showed the following results: nuc promise(FIP1L1,LNX,PD GFRA)x2[198/200], (D5S23,I1F633,CSF 1R/PDGFRBx2)[198/ 200],(FGFR1,CEP8) x2[198/200],(CBFB 1x2)[196/200] ??Normal Addendum 11/26/2011 Array-[facility] results were done for validation purpose and therefore no charge was made: Bone marrow and control DNA were labeled with different fluorescent tags and hybridized onto YUPIQ-12/ReviewPro-18. Array-CGH analysis of both DNAs revealed no clinically significant deviation indicating no deletion nor duplication: arr(1-22)x2,(XY)x 1 Normal Male 11/27/2011 12:03 PM [facility] Interpretation Male chromosome analysis showing 46,XY with no evidence for any clonal structural or numerical abnormality in all cells examined at 400 average band resolution. Addendum 11/23/2011 FISH interpretation: FISH was negative for all the probes of ??eosinophilia panel. The cutoff values for any break apart is at least 3 to 5%, for any rearrangement is 1%. Efficiency of the probes is satisfactory. Addendum 11/26/2011 Array-[facility] interpretation: Bone marrow was referred for array-CGH (Comparative Genome Hybridization) or Chromosomal Microarray Analysis (IMPREGNATING TANK OPERATOR) to rule out gains or losses. Array-CGH using nCrypted CloudX-12/hg-18 revealed no clinically significant abnormality for the regions included on the current version. Variants were identified and found to be benign. A duplication of less than 500 kb and a deletion that contains no known gene would be considered a benign variant at this point. A duplication of less than 500 kb that contains part of a gene found duplicated in the database of genome variants would also be considered a benign variant at this point. Note: Array-CGH does not detect balanced translocations, inversions, low level mosaicism or balanced insertions. In addition, gene abnormalities of a size less than 10 Kb and imprinting defects can't be ruled out by this assay. 11/27/2011 12:03 PM [facility] Disclaimer *This test was developed, and its performance characteristics determined by [facility] as required by CLIA '88 Regulations. It has not been cleared or approved for specific uses by the U.S. Food and Drug Administration. The FDA has determined that such clearance or approval is not necessary. This test is used for clinical purposes. It should not be reported as investigational or for research. 11/27/2011 12:03 PM CDT [facility] Other (qualifier value) BONE MARROW SPECIMEN / Unknown 11/16/2011 12:00 PM CDT 11/16/2011 6:34 PM CDT Farhana Marti MD LAB - PATHOLOGY/CYTO LOGY ORDERABLES [facility] [address] [place] [address] * (ABNORMAL) BASIC METABOLIC PANEL (CALCIUM TOTAL) (11/15/2011 4:52 PM CDT) Glucose 103 70 - 105 mg/dL 11/15/2011 5:50 PM T [facility] Sodium 139 136 - 145 mmol/L 11/15/2011 5:50 PM [facility] Potassium 3.8 3.5 - 5.1 mmol/L 11/15/2011 5:50 PM [facility] Chloride 109(H) 98 - 107 mmol/L 11/15/2011 5:50 PM [facility] CO2 20 20 - 28 mmol/L 11/15/2011 5:50 PM [facility] Calcium 8.76(L) 8.92 - 10.32 mg/dL 11/15/2011 5:50 PM [facility] Anion Gap 10 5 - 20 mmol/L 11/15/2011 5:50 PM [facility] BUN 5.1(L) 6.1 - 21.0 mg/dL 11/15/2011 5:50 PM [facility] Creatinine 0.50(L) 0.62 - 1.00 mg/dL 11/15/2011 5:50 PM [facility] eGFR by MDRD ml/min/1. 73m2 11/15/2011 5:50 PM [facility] Comment:eGFR calculations ar e not performed for children under 18 years old. eGFR by MDRD ml/min/1. 73m2 11/15/2011 5:50 PM CDT [facility] Comment:eGFR calculations ar e not performed for children under 18 years old. Blood specimen (specimen) BLOOD SPECIMEN / Unknown 11/15/2011 4:52 PM CDT 11/15/2011 5:15 PM CDT Augie Ellis MD LAB - CHEMISTRY RICHIE ROBINS [facility] [address] [facility] [address] * O+P PANEL (11/15/2011 11:07 AM CDT) Only the most recent of3 resultswithin the time period is included. Source 11/16/2011 4:00 PM CDT [facility] Comment Ref Lab 2 4:00 PM CDT [facility] Comment 11/16/2011 4:00 PM CDT [facility] O+P Direct Wet Mount 11/16/2011 4:00 PM CDT [facility] O+P Concentrate Wet Mount 11/16/2011 4:00 PM CDT [facility] O+P Concentrate Formalin NO ova and parasites seen. 11/16/2011 4:00 PM CDT [facility] Trichrome Stain NO ova and parasites seen. 11/16/2011 4:00 PM CDT [facility] O+P Notification 11/16/19 12 4:00 PM CDT [facility] Additional Comment 11/16/2011 4:00 PM CDT [facility] Comment ONLY 1 O+P EXAM PER 24 HOURS - MAXIMUM OF 3 O+P EXAMS PER PATIENT WILL BE EVALUATED. 11/16/2011 4:00 PM CDT [facility] Stool specimen (specimen) STOOL SPECIMEN / Unknown 11/15/2011 11:07 AM CDT 11/15/2011 11:24 AM CDT Isatu Madrid MD LAB - MICROB IOLOGY ORDERABLES [facility] [address] [place] [address], [facility] * (ABNORMAL) CELIAC DISEASE DUAL AG SCREEN W REFLEX (11/15/2011 4:51 AM CDT) Celiac Disease Dual Antigen 33(H) 0 - 19 Units 11/19/2011 12:21 PM CDT [facility] [employer] Comment: INTERPRETIVE INFORMATION: Celiac Disease Dual Antigen Screen 19 Units or less......Negative - No significant level of ?detectable IgA or IgG antibodies ?against human tissue transglutaminase ?or gliadin peptide. 20 Units or greater...Positive - Presence of IgA and/or ?IgG antibodies against human tissue ?transglutaminase and/or gliadin ?peptide; suggests possibility of ?certain gluten sensitive enteropathies ?such as celiac disease and dermatitis ?herpetiformis. Blood specimen (specimen) BLOOD SPECIMEN / Unknown 11/15/2011 4:51 AM CDT 11/15/2011 5:12 AM CDT Nathan Hester MD LAB - CHEMISTRY O RDERABLES Performing Organization Address City/[facility]/ZIP Co de Phone Number [facility] [address] [place] [address] * (ABNORMAL) TISSUE TRANSGLUTAMINASE AB IGA (11/15/2011 4:51 AM CDT) Tissue Transglutaminase (tTG) Ab, IgA 35(H) 0 - 19 Units 11/17/2011 6:43 AM CDT [employer] Comment: INTERPRETIVE INFORMATION: Tissue Transglutaminase (tTG) Antibody, IgA 19 Units or less: Negative 20-30 Units: Weak Positive 31 Units or greater: Moderate to Strong Positive Presence of the tissue transglutaminase (tTG) IgA antibody is associated with gluten-sensitive enteropathies such as celiac disease and dermatitis herpetiformis. tTG IgA antibody concentrations greater than or equal to 100 Units usually correlate with results of duodenal biopsies consistent with a diagnosis of celiac disease. For antibody concentrations greater than 20 Units but less than 100 Units, additional testing for endomysial (RICHA) IgA concentrations may improve the positive predictive value for disease. Blood specimen (specimen) BLOOD SPECIMEN / Unknown 11/15/2011 4:51 AM CDT 11/15/2011 5:12 AM CDT Nathan Hester MD LAB - SEROLOGY OR DERABLES Performing Organization Address [facility] de Phone Number [facility] [address] [place] [address] * (ABNORMAL) GLIADIN ANTIBODY IGA (11/15/2011 4:51 AM CDT) Deamidated Gliadin Peptide (DGP) Ab, IgA 20(H) 0 - 19 Units 11/19/2011 9:29 PM CDT [employer] Comment: INTERPRETIVE INFORMATION: Deamidated Gliadin Peptide (DGP) Ab, IgA 19 Units or less: ........... Negative 20-30 Units: ................ Weak Positive 31 Units or greater: ........ Positive Blood specimen (specimen) BLOOD SPECIMEN / Unknown 11/15/2011 4:51 AM CDT 11/15/2011 5:12 AM CDT Nathan Hester MD LAB - SEROLOGY OR DERABLES Performing Organization Address [facility] de Phone Number [facility] [address] [place] [address] * LAB MISC TEST (11/13/2011 4:57 PM CDT) Only the most recent of2 resultswithin the time period is included. Test Name CALPROTECTIN, FECAL 11/21/2011 10:27 PM CDT [facility] Test Result See Scanned Report (none) 11/21/2011 10:27 PM CDT [facility] Comment Ref Lab Test performed by [employer] 11/21/2011 10:27 PM CDT [facility] Other (qualifier value) BLOOD SPECIMEN / Unknown 11/13/2011 4:57 PM CDT 11/13/2011 6:11 PM CDT Isatu Madrid MD LAB SEND OUT Performing Organization Address [facility] Co de Phone Number [facility] [address] [place] [address] * (ABNORMAL) [id number] FECES (11/13/2011 4:57 PM CDT) Exhwh-5-Elfoni ypsin Feces 0.75(H) 0.00 - 0.62 mg/g 11/18/2011 3:14 PM CDT [facility] [employer] Stool specimen (specimen) STOOL SPECIMEN / Unknown 11/13/2011 4:57 PM CDT 11/13/2011 6:11 PM CDT Isatu Madrid MD LAB - BODY F LUID ORDERABLES Performing Organization Address City/[facility]/ZIP Co de Phone Number [facility] [address] [place] [address] * FECAL LEUKOCYTES (11/13/2011 3:12 PM CDT) WBC Feces/HPF No Fecal WBC's seen (none) 11/13/2011 10:30 PM CDT [facility] Stool specimen (specimen) STOOL SPECIMEN / Unknown 11/13/2011 3:12 PM CDT 11/13/2011 3:26 PM CDT Nathan Hester MD LAB - BODY FLUID ORDERABLES Performing Organization Address City/[facility]/ZIP Co de Phone Number [facility] [address] [facility] [address] * CULTURE STOOL PANEL (11/13/2011 3:11 PM CDT) Culture SEE BELOW 11/15/2011 7:29 AM CDT [facility] Comment: - Final - Negative for Shiga toxin by ?? immunoassay CULTURE No growth of Salmonella, ?? Shigella, Campylobacter, ?? Yersinia, E.coli 0157-[id number] Stool specimen (specimen) STOOL SPECIMEN / Unknown 11/13/2011 3:11 PM CDT 11/13/2011 3:26 PM CDT Isatu Madrid MD LAB - MICROB IOLOGY ORDERABLES Performing Organization Address [facility] Co de Phone Number [facility] [address] [place] [address], [facility] * EKG 15-LEAD (11/13/2011 11:04 AM CDT) Ventricular Rate 72 BPM CG MUSE Atrial Rate 72 BPM CG MUSE P-R Interval 144 ms CG MUSE QRS Duration ms 82 ms CG MUSE Q-T Interval ms 394 ms CG MUSE QTC Calculation (Bezet) 431 ms CG MUSE Calculated P [place] 35 degrees CG MUSE Calculated R [place] 46 degrees CG MUSE Calculated T [place] 34 degrees CG MUSE Interpretation EKG * Pediatric ECG Analysis * Normal sinus rhythm Normal ECG No previous ECGs available Confirmed by MD Helio, Franki ([id number]) on 11/13/2011 5:23:15 PM CG MUSE 11/13/2011 11:0 4 AM CDT 11/13/2011 5:23 PM CDT Narrative Transcriptions Document, Scanned - 11/13/2011 11:59 AM CDT Document, Scanned - 11/13/2011 5:24 PM CDT Isatu Madrid MD ECG ORDERABL ES CG MUSE * US ABDOMEN COMPLETE (11/13/2011 9:18 AM CDT) Anatomical Region Laterality Modality Abdomen Ultrasound 11/13/2011 11:0 5 AM CDT Impressions 11/13/2011 5:18 PM CDT Normal abdominal ultrasound. Dictated by: Yasmin Lovelace MD Narrative 11/13/2011 5:18 PM CDT Abdominal ultrasound, complete 11/13/2011 History: ??Abdominal pain, diarrhea, eosinophilia. Findings: ??No prior examinations are available for comparison. . Liver echotexture is normal. The gallbladder is normal. The common duct measures 2 mm in diameter, which is within normal limits. ??The pancreas is normal. The spleen has normal homogeneous echotexture measuring 9.1 x 3.1 cm, which is within normal limits for the patient's age. No ascites is present. ?? Right kidney: 8.6 x 3.5 x ??5.0 cm Left kidney : 8.9 x 4.2 x 5.5 cm Normal renal length ??for children ages 11 to 12 years is 9.6 cm with a standard deviation of 0.6cm. Renal cortical echogenicity is normal. No hydronephrosis, masses, or stones are seen.The urinary bladder is partially distended and grossly normal. The visible great vessels in the retroperitoneum are normal. Procedure Note Juan Owens MD - 11/13/2011 Abdominal ultrasound, complete 11/13/2011 History: Abdominal pain, diarrhea, eosinophilia. Findings: No prior examinations are available for comparison. . Liver echotexture is normal. The gallbladder is normal. The common duct measures 2 mm in diameter, which is within normal limits. The pancreas is normal. The spleen has normal homogeneous echotexture measuring 9.1 x 3.1 cm, which is within normal limits for the patient's age. No ascites is present. Right kidney: 8.6 x 3.5 x 5.0 cm Left kidney : 8.9 x 4.2 x 5.5 cm Normal renal length for children ages 11 to 12 years is 9.6 cm with a standard deviation of 0.6cm. Renal cortical echogenicity is normal. No hydronephrosis, masses, or stones are seen.The urinary bladder is partially distended and grossly normal. The visible great vessels in the retroperitoneum are normal. IMPRESSION Normal abdominal ultrasound. Dictated by: Yasmin Lovelace MD Ezekiel Doshi MD ORDERABLES * TOXOCARA ANTIBODY (11/13/2011 4:49 AM CDT) Toxocara Antibody 0.030 <=0.299 OD 11/17/2011 10:12 PM CDT [facility] Comment: INTERPRETIVE INFORMATION: Toxocara Ab, IgG by JOHN PAUL ??0.299 OD or less....... Negative - No significant ?level of Toxocara IgG antibody ?detected. ??0.300-0.500 OD......... Equivocal - Questionable ?presence of Toxocara IgG antibody ?detected. Repeat testing in 10-14 ?days may be helpful. ??0.501 OD or greater.... Positive - Presence of IgG ?antibody to Toxocara detected, ?suggestive of current or past ?infection. Blood specimen (specimen) BLOOD SPECIMEN / Unknown 11/13/2011 4:49 AM CDT 11/13/2011 4:52 AM CDT Stuart Miller MD LAB - CHEMISTRY ORD ERABLES [facility] [address] [place] [address] * ISOHEMAGGLUTININS (11/13/2011 4:49 AM CDT) ABO Rh O Positive 11/13/2011 4:14 PM CDT [facility] Anti A Cell Titer 1:512 11/13/2011 4:14 PM CDT [facility] Anti-B Cell Titer 1:16 11/13/2011 4:14 PM CDT [facility] Blood specimen (specimen) BLOOD SPECIMEN / Unknown 11/13/2011 4:49 AM CDT 11/13/2011 4:52 AM CDT Stuart Miller MD LAB - BLOOD BANK OR DERABLES Performing Organization Address [facility] Co de Phone Number [facility] [address] [place] [address] * (ABNORMAL) IMMUNOGLOBULINS PANEL (11/13/2011 4:49 AM CDT) IgA 100 63 - 484 mg/dL 11/13/2011 5:31 AM CDT [facility] IgG 360(L) 540 - 1,822 mg/dL 11/13/2011 5:31 AM CDT [facility] IgM 41 22 - 240 mg/dL 11/13/2011 5:31 AM CDT [facility] Blood specimen (specimen) BLOOD SPECIMEN / Unknown 11/13/2011 4:49 AM CDT 11/13/2011 4:52 AM CDT Ezekiel Doshi MD LAB - CHEMISTRY O RDERABLES Performing Organization Address [facility] Co de Phone Number [facility] [address] [place] [address] * XR ABD OBSTR SERIES (11/12/2011 5:13 PM CDT) Anatomical Region Laterality Modality Abdomen Radiographic Dominique ging 11/13/2011 7:34 AM CDT Impressions 11/13/2011 7:34 AM CDT Nonspecific bowel gas pattern with multiple adynamic air-fluid levels as described above. Narrative 11/13/2011 7:34 AM CDT EXAMINATION: Obstructive series dated ??Nov 12, 2011 05:14:12 PM . HISTORY: Diarrhea. FINDINGS: Supine and upright views of the abdomen are obtained. No prior examinations are available for comparison. There is a nonspecific bowel gas pattern seen with air seen in multiple loops of small bowel. There is a small amount of gastric air noted. Multiple adynamic air-fluid levels are seen on the upright radiograph. There is no evidence of any free air or pneumatosis. ??No other imaging abnormalities are appreciated. Procedure Note Travis Best - 11/13/2011 EXAMINATION: Obstructive series dated Nov 12, 2011 05:14:12 PM . HISTORY: Diarrhea. FINDINGS: Supine and upright views of the abdomen are obtained. No prior examinations are available for comparison. There is a nonspecific bowel gas pattern seen with air seen in multiple loops of small bowel. There is a small amount of gastric air noted. Multiple adynamic air-fluid levels are seen on the upright radiograph. There is no evidence of any free air or pneumatosis. No other imaging abnormalities are appreciated. IMPRESSION Nonspecific bowel gas pattern with multiple adynamic air-fluid levels as described above. Ezekiel Doshi MD DIAGNOSTIC IMAGIN G ORDERABLES * XR CHEST PA AND LATERAL (11/12/2011 5:13 PM CDT) Anatomical Region Laterality Modality Chest Radiographic Dominique ging 11/13/2011 7:34 AM CDT Impressions 11/13/2011 7:34 AM CDT ??Reactive airways changes as described above with no confluent infiltrate. Narrative 11/13/2011 7:34 AM CDT EXAMINATION:Two-view chest dated ??Nov 12, 2011 05:13:57 PM . HISTORY: ?Diarrhea . PA and lateral views of the chest are obtained. No prior examinations are available for comparison. The cardiothymic silhouette is within normal limits. The lungs are hyperinflated with mild ??increased perihilar markings in a pattern consistent with reactive airways disease. No confluent alveolar infiltrate is identified. No bony or soft tissue abnormalities are appreciated. Procedure Note Travis Best - 11/13/2011 EXAMINATION:Two-view chest dated Nov 12, 2011 05:13:57 PM . HISTORY: Diarrhea . PA and lateral views of the chest are obtained. No prior examinations are available for comparison. The cardiothymic silhouette is within normal limits. The lungs are hyperinflated with mild increased perihilar markings in a pattern consistent with reactive airways disease. No confluent alveolar infiltrate is identified. No bony or soft tissue abnormalities are appreciated. IMPRESSION Reactive airways changes as described above with no confluent infiltrate. Ezekiel Doshi MD DIAGNOSTIC [place] Daniel ORDERABLES Care Teams Project Coordinator Relationship Specialty Start Date End Date Laine Sharp MD [address] [id number] PCP - General Pediatrics 12/31/13
--- OUTSIDE RECORDS SUMMARY | 2024-03-21 22:02 | XMS_ITS | Encounter Summary ---
Author Organization [facility] Address [address] [place] [address] Care Team Providers Care Homeowner Association Manager Name Role Phone Laine Sharp MD Primary Care Provider [phone] Reason for Visit * Reason Onset Date Comments MEDICATION REFILL 06/08/2019 Encounter Details Date Type Department Care Team (Late st Contact Info) Description 06/08/2019 Refill [facility] Pediatrics - GI [address] [place] [address] Faith Quispe MD [address] [place], [place] [id number] MEDICATION REFILL Social History Tobacco Use Types Packs/Day Years [...] No 04/10/2019 documented as of this encounter Miscellaneous Notes * Telephone Encounter - Elena Santillan RN - 06/22/2019 12:28 PM CDT Spoke to Roberto - He states he has enough medication to last until [facility] will likely have med back in stock. No need to send rx elsewhere. * Telephone Encounter - Elena Santillan RN - 06/22/2019 10:04 AM CDT Received fax from JOHN Hahn regarding pts flovent. Last seen 03/2019 for scope. Rx was sent on 06/08/19 with 6 refills. States medication is in short supply. Pharmacy cannot get medication in from electronic systems technician - asking ifthere is an alternative medication [facility] can use? [facility] but is also having issues with the shortage. [facility] Med[facility] is on back order until 06/27/19. Called [facility]elle to offer switching rx to [facility] for one time fill since they have medication in stock. No answer and VM box is full. Will try back later. * Telephone Encounter - Faith Quispe MD - 06/08/2019 8:36 AM CDT Called Lavelle regarding his follow-up on . He is doing well on Flovent without recent symptoms. Due to closure of [facility] this , will need to reschedule this visit. Ok to schedule with myself and/or Dr. Cobb in . Please reach out to him to reschedule (he is over 18, so can discuss directly with him). documented in this encounter Plan of Treatment Not on file documented as of this encounter Visit Diagnoses Not on filedocumented in this encounter Care Teams Homeowner Association Manager Relationship Specialty Start Date End Date Laine Sharp MD [address] [id number] PCP - General Pediatrics 12/31/13 documented as of this encounter
--- OUTSIDE RECORDS SUMMARY | 2024-03-21 22:02 | XMS_ITS | Encounter Summary ---
Author Organization [facility] Address [address] [facility] [place] [address] Care Team Providers Care Bran Mixer Name Role Phone Laine Sharp MD Primary Care Provider Reason for Referral * Procedure (Routine) - Closed Specialty Diagnoses / Procedures Referred By Contac t Referred To Contact Gastroenterology Diagnoses Eosinophilic gastroenteritis and colitis Eosinophilic esophagitis Procedures ENDOSCOPY, COLON, DIAGNOSTIC Faith Quispe MD [address] [place] [address] Referral ID Status Reason Start Date Expiration Date Visits Re quested Visits Authorized [id number] Closed 03/12/2019 09/08/2019 1 1 DER LEVER OPERATOR * Procedure (Routine) - Closed Specialty Diagnoses / Procedures Referred By Contac t Referred To Contact Gastroenterology Diagnoses Eosinophilic gastroenteritis and colitis Eosinophilic esophagitis Procedures EGD Faith Quispe MD [address] [place] [address] Referral ID Status Reason Start Date Expiration Date Visits Re quested Visits Authorized [id number] Closed 03/12/2019 09/08/2019 1 1 DER LEVER OPERATOR Reason for Visit * Auth/Cert Specialty Diagnoses / Procedures Referred By Contac t Referred To Contact Procedures ESOPHAGOGASTRODUODENOSCOPY (EGD) BIOPSY COLONOSCOPY BIOPSY (ANY METHOD) Referral ID Status Reason Start Date Expiration Date Visits Re quested Visits Authorized [id number] 1 1 Encounter Details Date Type Department Care Team (Latest Contact Info) Description 04/10/2019 11:19 AM SKIDDER LEVER OPERATOR - 04/10/2019 2:20 PM SKIDDER LEVER OPERATOR Hospital Encounter [facility] - Endoscopy [address] [place] [address] Kenzie Cobb MD [address] [place] [address] Surgery General Discharge Disposition: Home or Self Care Social History Tobacco Use Types Packs/Day Years [...] Comments Blood Pressure 110/64 04/10/2019 2:15 PM SKIDDER LEVER OPERATOR Pulse 64 04/10/2019 2:00 PM SKIDDER LEVER OPERATOR Temperature 37.2 ??C (99 ??F) 04/10/2019 1:30 PM SKIDDER LEVER OPERATOR Respiratory Rate 16 04/10/2019 2:15 PM SKIDDER LEVER OPERATOR Oxygen Saturation 98% 04/10/2019 2:15 PM SKIDDER LEVER OPERATOR Inhaled Oxygen Concentration - - Weight 69.5 kg (153 lb 3.5 oz) 04/10/2019 11:42 AM SKIDDER LEVER OPERATOR Height 171.8 cm (5' 7.64 ) 04/10/2019 11:[address] Body Mass Index 23.55 04/10/2019 11:42 AM SKIDDER LEVER OPERATOR documented in this encounter Functional Status Functional [...] SURGERY DISCHARGE SUMMARY Patient ID: Lavelle Michael [id number] 18 year old 2000 Discharge Date: 04/10/2019 [...] M.D. Pediatric Gastroenterology Fellow 04/10/2019 1:30 PM DER LEVER OPERATOR Associated attestation - Kenzie Cobb MD - 04/10/2019 3:54 PM SKIDDER LEVER OPERATOR I agree with fellow note. Kenzie Cobb [...] GI UPPER WITH BIOPSY ??? Orchiopexy 11/27/2002 RACHEL-Dr Beaver ??? NV EGD FLEX TRANSORAL W BX SNGL [...] results for input(s): INR in the last 69045 hours. No results for input(s): PTT in the last 32470 hours. 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 Risks, benefits and alternatives discussed with the patient, questions answered. Plan to perform above noted procedure. Faith Quispe M.D. Pediatric Gastroenterology Fellow DER LEVER OPERATOR Associated attestation - Kenzie Cobb MD - 04/10/2019 3:55 PM SKIDDER LEVER OPERATOR I agree with fellow note. Kenzie Cobb MD documented in this encounter Plan of Treatment Not on file documented as of this encounter Procedures Procedure Name Priority Date/Time Associated Diagnosis Comments PATHOLOGY TISSUE EXAM (STL) STAT 04/10/2019 12:55 PM SKIDDER LEVER OPERATOR Eosinophilic esophagitis HELICOBACTER PYLORI UREASE (STL) STAT 04/10/2019 12:47 PM SKIDDER LEVER OPERATOR Eosinophilic gastroenteritis and colitis Eosinophilic esophagitis NV COLONOSCOPY,BIOPSY 04/10/2019 12:38 PM SKIDDER LEVER OPERATOR NV EGD FLEX TRANSORAL W BX SNGL OR MULT 04/10/2019 12:38 PM SKIDDER LEVER OPERATOR CBC W AUTO DIFFERENTIAL STAT 04/10/2019 12:00 PM SKIDDER LEVER OPERATOR Eosinophilic gastroenteritis and colitis Eosinophilic esophagitis COMPREHENSIVE METABOLIC PANEL STAT 04/10/2019 12:00 PM SKIDDER LEVER OPERATOR Eosinophilic gastroenteritis and colitis Eosinophilic esophagitis LIPASE BLOOD STAT 04/10/2019 12:00 PM SKIDDER LEVER OPERATOR Eosinophilic gastroenteritis and colitis Eosinophilic esophagitis EGD Routine 04/10/2019 11:47 AM SKIDDER LEVER OPERATOR Eosinophilic gastroenteritis and colitis Eosinophilic esophagitis ENDOSCOPY, COLON, DIAGNOSTIC Routine 04/10/2019 11:46 AM SKIDDER LEVER OPERATOR Eosinophilic gastroenteritis and colitis Eosinophilic esophagitis documented in this encounter Results * GROSS + MICRO EXAM (STL) (04/10/2019 12:55 PM SKIDDER LEVER OPERATOR) Case Report Surgical Pathology Report ? Case: [id number] ? Authorizing Provider: ??Kenzie Cobb MD ?Collected: ? 04/10/2019 12:55 PM ? Ordering Location: ? ENDOSCOPY SERVICES ?Received: ?04/10/2019 02:35 PM ? Pathologist: ? Caridad Otto MD ? Specimens: ?? A) - Duodenal Biopsy ? B) - Stomach Biopsy ? C) - Esophageal Biopsy, distal ? D) - Esophageal Biopsy, mid ? E) - Ileum Terminal ? F) - Colon Biopsy ? G) - Rectosigmoid Biopsy ? H) - Polyp Rectal ? 04/13/2019 5:42 PM [facility] Final Diagnosis Small intestine, duodenum, biopsy [...] (H): - Hyperplastic polyp 04/13/2019 5:42 PM [facility] Clinical History The patient is a 18-year-old young man with eosinophilic esophagitis who underwent upper endoscopy and colonoscopy. The findings were scattered erosions of the duodenal bulb, scattered gastric erythema, and mild esophageal linear furrows, and a rectal polyp. 04/13/2019 5:42 PM [facility] Gross Description The specimens are received fixed in formalin in eight containers for gross and microscopic examination. All containers are labeled with the patient? s name, Lavelle JuniorFranci Michael. Specimen A, duodenal biopsy, consists of [...] toto as H1. (CT/na) 04/13/2019 5:42 PM [facility] Microscopic Description 24 H&E slides examined. Microscopic examination substantiates the final diagnosis. 04/13/2019 5:42 PM [facility] Disclaimer The performance characteristics of all immunohistochemical and indirect immunofluorescence stains (if any) cited in this report were determined by the [facility]opathology Laboratory of [facility] in compliance with Clinical Laboratory Improvement Amendments of 1988 (CLIA'88) regulations. Some of these tests rely on the use of analyte-specific reagents and are subject to specific labeling requirements by the U.S. Food and Drug Administration (FDA). Such tests were developed by the [facility] of [facility] and have not been cleared or approved by the FDA. The FDA has determined that such clearance or approval is not necessary. These tests are used for clinical purposes and should not be regarded as investigational or for research. This case has been personally reviewed and interpreted by the attending (teaching) pathologist. The interpretation of this case is performed by [facility] at [facility], [address] [place] [id number]. 04/13/2019 5:42 PM [facility] Embedded Images 04/13/2019 5:42 PM [facility] Pathology/Cytology DUODENAL BIOPSY SPECIMEN / Unknown 04/10/2019 12:55 PM SKIDDER LEVER OPERATOR 04/10/2019 2:35 PM SKIDDER LEVER OPERATOR Miscellaneous samples (specimen) BIOPSY OF STOMACH / Unknown 04/10/2019 12:55 PM SKIDDER LEVER OPERATOR 04/10/2019 2:35 PM SKIDDER LEVER OPERATOR Miscellaneous samples (specimen) ESOPHAGEAL BIOPSY SPECIMEN / Unknown 04/10/2019 12:55 PM SKIDDER LEVER OPERATOR 04/10/2019 2:35 PM SKIDDER LEVER OPERATOR Miscellaneous samples (specimen) ESOPHAGEAL BIOPSY SPECIMEN / Unknown 04/10/2019 1:01 PM SKIDDER LEVER OPERATOR 04/10/2019 2:35 PM SKIDDER LEVER OPERATOR Miscellaneous samples (specimen) TERMINAL ILEUM RESECTION SPECIMEN / Unknown 04/10/2019 1:18 PM SKIDDER LEVER OPERATOR 04/10/2019 2:35 PM SKIDDER LEVER OPERATOR Miscellaneous samples (specimen) COLONIC BIOPSY SPECIMEN / Unknown 04/10/2019 1:18 PM SKIDDER LEVER OPERATOR 04/10/2019 2:35 PM SKIDDER LEVER OPERATOR Miscellaneous samples (specimen) RECTOSIGMOID STRUCTURE / Unknown 04/10/2019 1:22 PM SKIDDER LEVER OPERATOR 04/10/2019 2:35 PM SKIDDER LEVER OPERATOR Miscellaneous samples (specimen) RECTAL POLYP / Unknown 04/10/2019 1:23 PM SKIDDER LEVER OPERATOR 04/10/2019 2:35 PM SKIDDER LEVER OPERATOR Kenzie Cobb MD LAB - PATHOLOGY/CYTO LOGY ORDERABLES Performing Organization Address [facility] Co de Phone Number [facility] [address] [place] [address] [facility] [address] [phone] * HELICOBACTER PYLORI UREASE (STL) (04/10/2019 12:47 PM SKIDDER LEVER OPERATOR) Helicobacter pylori Urease Initial Negative Negative 04/11/2019 1:33 PM SKIDDER LEVER OPERATOR [facility] Helicobacter pylori Urease Final Negative Negative 04/11/2019 1:33 PM SKIDDER LEVER OPERATOR [facility] Comment:This is an appended report. These results have been appended to a previously preliminary verified report. Microbiology GASTRIC ANTRAL BIOPSY SPECIMEN / Unknown Collection / Unknown 04/10/2019 12:47 PM SKIDDER LEVER OPERATOR 04/10/2019 1:11 PM SKIDDER LEVER OPERATOR Faith Quispe MD LAB - MICROBIOLOG Y ORDERABLES Performing Organization Address City/[facility]/ZIP Co de Phone Number [facility] [address] [place] [address] * LIPASE BLOOD (04/10/2019 12:00 PM SKIDDER LEVER OPERATOR) Lipase 16 10 - 220 U/L 04/10/2019 12:56 PM SKIDDER LEVER OPERATOR [facility] Blood BLOOD SPECIMEN / Unknown Venipuncture / Unknown 04/10/2019 12:00 PM SKIDDER LEVER OPERATOR 04/10/2019 12:20 PM [facility] Faith Quispe MD LAB - CHEMISTRY O RDERABLES [facility] [place] [address] * (ABNORMAL) COMPREHENSIVE METABOLIC PANEL (04/10/2019 12:00 PM [facility]) Pathologist [facility] Glucose 77 70 - 105 mg/dL 04/10/2019 12:56 PM [facility] Sodium 138 136 - 145 mmol/L 04/10/2019 12:56 PM [facility] Potassium 4.3 3.5 - 5.1 mmol/L 04/10/2019 12:56 PM [facility] Chloride 105 98 - 107 mmol/L 04/10/2019 12:56 PM [facility] CO2 25 22 - 29 mmol/L 04/10/2019 12:56 PM [facility] Calcium 10.13 9.08 - 10.48 mg/dL 04/10/2019 12:56 PM [facility] Anion Gap 8 5 - 20 mmol/L 04/10/2019 12:56 PM [facility] BUN 14.2 5.3 - 18.7 mg/dL 04/10/2019 12:56 PM [facility] Creatinine 1.15(H) 0.61 - 1.07 mg/dL 04/10/2019 12:56 PM [facility] Alkaline Phosphatase 62 39 - 139 U/L 04/10/2019 12:56 PM [facility] ALT 17 6 - 46 U/L 04/10/2019 12:56 PM [facility] AST 19 8 - 42 U/L 04/10/2019 12:56 PM [facility] Protein Total 7.6 6.3 - 8.2 gm/dL 04/10/2019 12:56 PM [facility] Albumin 4.8 3.3 - 4.9 gm/dL 04/10/2019 12:56 PM [facility] Bilirubin Total 1.1 0.3 - 1.2 mg/dL 04/10/2019 12:56 PM [facility] eGFR by MDRD >60 >60 mL/min/1.7 3m2 04/10/2019 12:56 PM [facility] eGFR by MDRD >60 >60 mL/min/1.7 3m2 04/10/2019 12:56 PM [facility] Blood BLOOD SPECIMEN / Unknown Venipuncture / Unknown 04/10/2019 12:00 PM SKIDDER LEVER OPERATOR 04/10/2019 12:20 PM [facility] Faith Quispe MD LAB - CHEMISTRY O RDERABLES [facility] [address] [place] [id number] * (ABNORMAL) CBC W AUTO DIFFERENTIAL (04/10/2019 12:00 PM [facility]) WBC 5.6 4.4 - 10.7 x10E9/L 04/10/2019 12:26 PM [facility] WBC Corrected 04/10/2019 12:26 PM [facility] RBC 5.60(H) 3.80 - 5.40 x10E12/L 04/10/2019 12:26 PM [facility] Hemoglobin 17.0 12.0 - 17.6 gm/dL 04/10/2019 12:26 PM [facility] Hematocrit 49.2 35.2 - 51.7 % 04/10/2019 12:26 PM [facility] MCV 87.9 80.7 - 98.3 fl 04/10/2019 12:26 PM [facility] MCH 30.4 26.7 - 34.0 pg 04/10/2019 12:26 PM [facility] MCHC 34.6 30.8 - 35.9 gm/dL 04/10/2019 12:26 PM [facility] Platelet Count 254 153 - 416 x10E9/L 04/10/2019 12:26 PM [facility] RDW-CV 12.0(L) 12.1 - 14.9 % 04/10/2019 12:26 PM [facility] MPV 9.6 9.4 - 12.9 fl 04/10/2019 12:26 PM [facility] Neutrophils % 47.8 44.0 - 73.0 % 04/10/2019 12:26 PM [facility] Lymphocytes % 32.4 20.0 - 43.0 % 04/10/2019 12:26 PM [facility] Monocytes % 6.4 5.0 - 13.0 % 04/10/2019 12:26 PM [facility] Eosinophils % 12.7(H) 0.0 - 6.0 % 04/10/2019 12:26 PM [facility] Basophils % 0.5 0.0 - 2.0 % 04/10/2019 12:26 PM [facility] Immature Granulocytes 0.2 0 - 1 % 04/10/2019 12:26 PM [facility] Neutrophil Absolute 2.67 2.01 - 7.14 x10E9/L 04/10/2019 12:26 PM [facility] Lymphocytes Absolute 1.81 1.07 - 3.94 x10E9/L 04/10/2019 12:26 PM [facility] Monocytes Absolute 0.36 0.26 - 1.07 x10E9/L 04/10/2019 12:26 PM [facility] Eosinophils Absolute 0.71(H) 0 - 0.47 x10E9/L 04/10/2019 12:26 PM [facility] Basophils Absolute 0.03 0 - 0.08 x10E9/L 04/10/2019 12:26 PM [facility] Immature Granulocytes Absolute 0.01 0.00 - 0.06 x10E9/L 04/10/2019 12:26 PM [facility] nRBC Auto 0 /100 WBC 04/10/2019 12:26 PM [facility] Blood BLOOD SPECIMEN / Unknown Venipuncture / Unknown 04/10/2019 12:00 PM [facility] 04/10/2019 12:20 PM [facility] Faith Quispe MD LAB - HEMATOLOGY ORDERABLES Performing Organization Address City/State/[facility] Co de Phone Number [facility] [address] [place] [address] * EGD (04/10/2019 11:47 AM [facility]) Report Endoscopy POC _ Patient Name: Lavelle Wells ? Date of : 2000 ?Admit Type: Outpatient Age: 18 ? Gender: Male Race: White ? Attending MD: Kenzie Cobb , Order #: [id number] ? _ Procedure: ? Upper GI endoscopy Indications: ? Follow-up of eosinophilic esophagitis, Follow-up of ? eosinophilic gastroenteritis, Nausea Providers: ? Kenzie Servin MD: ?Laine Sharp MD Medicines: ? Monitored [...] Procedure Code(s): ? --- Professional --- ? 18994, Esophagogastroduod enoscopy, flexible, transoral; with biopsy, ? single or multiple ? --- Technical --- ? 82297, Esophagogastroduod enoscopy, flexible, transoral; with biopsy, ? [...] gastroenteritis ? R11.0, Nausea CPT copyright 2017 [employer]. All rights reserved. The codes documented in this report are preliminary and upon cargo broker review may be revised to meet current compliance requirements. Dr. Kenzie Cobb Kenzie Cobb, 04/10/2019 1:59:08 PM This report has been signed electronically. Number of Addenda: 0 Note Initiated On: 04/07/2019 11:47 AM Procedure Date: ? 04/10/2019 11:47:00 AM ? This report has been signed electronically. [facility] 04/10/2019 11:4 7 AM SKIDDER LEVER OPERATOR Faith Quispe MD GI PROCEDURE RICHIE ROBINS [facility] [address] [place] [address] * ENDOSCOPY, COLON, DIAGNOSTIC (04/10/2019 11:46 AM SKIDDER LEVER OPERATOR) Report Endoscopy POC _ Patient Name: Lavelle Michael ? Date of : 2000 ?Admit Type: Outpatient Age: 18 ? Gender: Male Race: White ? Attending MD: Kenzie Cobb , Order #: [id number] ? _ Procedure: ? Colonoscopy Indications: ? [...] Procedure Code(s): ? --- Professional --- ? 16212, Colonoscopy, flexible; with biopsy, single or multiple ? --- Technical --- ? 92273, Colonoscopy, flexible; with biopsy, single or multiple Diagnosis Code(s): ? --- Professional --- ? R10.84, Generalized abdominal pain ? K52.9, Noninfective gastroenteritis and colitis, unspecified ? --- Technical --- ? R10.84, Generalized abdominal pain ? K52.9, Noninfective gastroenteritis and colitis, unspecified CPT copyright 2017 [employer]. All rights reserved. The codes documented in this report are preliminary and upon cargo broker review may be revised to meet current compliance requirements. Dr. Kenzie Cobb Kenzie Cobb, 04/10/2019 1:59:34 PM This report has been signed electronically. Number of Addenda: 0 Note Initiated On: 04/07/2019 11:46 AM Procedure Date: ? 04/10/2019 11:46:00 AM ? This report has been signed electronically. [facility] 04/10/2019 11:4 6 AM SKIDDER LEVER OPERATOR Faith Quispe MD GI PROCEDURE RICHIE ROBINS [facility] [address] [place] [address] documented in this encounter Visit Diagnoses Diagnosis Eosinophilic gastroenteritis and colitis Eosinophilic esophagitis documented in this encounter Administered Medications Inactive Administered [...] 1543 $ New Bag/Syringe 04/10/2019 12:15 PM SKIDDER LEVER OPERATOR 75 mL/hr isolyte-S pH 7.4 infusion at 100 mL/hr, Intravenous, POST-OP CONTINUOUS, Starting on Sat04/10/19 at 1345, Until Sat04/10/19 at 1543, PACU $ New Bag/Syringe 04/10/2019 1:50 PM SKIDDER LEVER OPERATOR 100 mL/hr *Current Bag - New Order 04/10/2019 1:30 PM SKIDDER LEVER OPERATOR 100 mL/hr documented in this encounter Active and Recently Administered Medications Times are shown in SKIDDER LEVER OPERATOR. Continuous Medication Order 04/08/2019 04/09/2019 04/10/2019 isolyte-S [...] RN)[id number] ($ New Bag/Syringe - Provider: Kathleen Queen RN)[phone] (Stopped - Provider: Kathleen Queen RN) PRN [...] PACU documented in this encounter Care Teams Bran Mixer Relationship Specialty Start Date End Date Laine Sharp MD [address] [phone] PCP - General Pediatrics 12/31/13 documented as of this encounter
--- OUTSIDE RECORDS SUMMARY | 2024-03-21 22:02 | XMS_ITS | Clinical Summary ---
Author Organization [facility] Address [address] [place] [address] Care Team Providers Care Irrigation Flume Layer Name Role Phone Laine Sharp MD Primary Care Provider [phone] [facility],non-owned Affiliates and Associated Physician Practices is amultiple site organization consisting of ambulatory clinics and hospital sitesin [place], [place], [place] and [place]. This disclosure is being madepursuant to the Care Everywhere program and may not contain all information available regarding this patient. Last updated 17.[facility] Allergies Active Allergy Reactions Criticality Noted Date Comments Other 05/05/2012 CLEAR TAPE CAUSED IRRITATION. PLEASE USE CLOTH TAPE Medications * Be aware that medications may not be up to date on this document. Alwaysverify current medications with the patient. Medication Sig Dispensed Refills Start Date End Date Status esomeprazole (NEXIUM) 40 MG capsule Take 1 capsule by mouth daily before breakfast 30 capsule 5 03/12/2019 Active fluticasone hfa 220 (FLOVENT HFA) 220 MCG/ACT inhalerIndications :Eosinophilic Esophagitis Take 2 puffs by mouth 2 times daily Swallow 2 puffs twice daily, rinse mouth with small amount of water after. Reasons: Eosinophilic Esophagitis 1 Inhaler 6 05/12/2019 Active Active Problems Problem Noted Date Diagnosed Date Abnormal weight loss 11/16/2016 Rectal polyp 11/16/2016 Eczema 02/12/2012 Allergic rhinitis 02/12/2012 Overview (02/12/2012): 01/09/12: IgE immunocaps + for mold, dust mites, cat, dog Trace sensitivity to trees, weeds, and cow. Food allergy 02/12/2012 Overview (02/12/2012): 01/09/12: IgE immunocaps Sensitivity to milk, wheat, peanut, barley, rye, gluten and beef. Trace sensitivity to numerous other foods. 02/12/12: an elimination diet for milk, wheat, peanut and tree nuts was recommended. Eosinophilia 11/10/2011 Overview (10/17/2016): Patient admitted for abdominal pain and diarrhea for 3 weeks on 11/08-11/22. Peripheral eosinophlia noted: 11/19/11 = 4901 11/22/11 = 0 on prednisone 01/09/12 = 600 off prednisone for one week 01/28/12 = 606 off prednisone for 4 weeks 05/26/12 = 954 off prednisone 10/01/16 = 620 off prednisone CRP elevated, IgG- 360, IgE normal, IgA nl. TTG border line high- 35 Workup for Hypereosinophilic Syndrome: ECHO was also normal blood cathecolamines nl, LUC nl,5 HTIAA normal. Fish for FIP1 L1 PDGFR alpha gene was normal. Fecal Calprotectin is normal. 01/09/12: IL-5 = 8 (elevated, 0-5 normal range) Upper GI with path report with eosinophilic esophagitis and dudenitis. Bone marrow aspiration done at time of scope for concern of neoplasia with high eosinophlis in bone marrow aspirate, cytogenetics were normal, leukemia panel and bone marrow biopsy nl. See Dr perez's progress note from 11/21/11. Pt showed significant clinical improvement after starting prednisone 20 bid and slowly tapered to off in 5 week span. EE (eosinophilic esophagitis ) and Eosinophilic Enterocolitis 11/09/2011 Overview (10/17/2016): 11/16/11: EGD on showed severe eosinophilic esophagitis,gastritis,duodunitis, and colitis. Treated with po prednisone until late December,, and he was started on flovent 220 mcg 2 puffs swallow bid 01/09/12. He was on 6 food elimination diet for 6 weeks, without clinical improvement. An elimination diet for milk, wheat, peanut and tree nuts, with continued swallowed Flovent was recommended on 02/12/12. 10/01/16: repeat EGD with Dr. Cobb showed >100 eos/HPF and gastritis with some eosinophilia in his stomach and duodenum. He was restarted on prilosec and swallowed Flovent after that scope. A colonoscopy is scheduled. ADHD (attention deficit hyperactivity disorder) 11/09/2011 Overview (11/09/2011): - Continue home Adderall and Vyvanse Resolved Problems Problem Noted Date Diagnosed Date Resolved Date History of asthma 10/17/2016 10/17/2016 Overview (10/17/2016): exercise induced asthma--uses albuterol prn--last used 06/2011--never hosp last ER visit 2009 Flushing 11/13/2011 02/12/2012 Overview (11/21/2011): No flushing episodes over night. Plan - Benadryl prn - Monitor vital signs if flushing attack recurs - Avoid Compazine Family History Medical History Relation Name Comments GERD - Gastroesophageal Reflux Disease Father Esophagitis Sister EoE Relation Name Status Comments Father Sister Social History Tobacco Use Types Packs/Day Years [...] Comments Blood Pressure 110/64 04/10/2019 2:15 PM MANAGER SIX SIGMA Pulse 64 04/10/2019 2:00 PM MANAGER SIX SIGMA Temperature 37.2 ??C (99 ??F) 04/10/2019 1:30 PM MANAGER SIX SIGMA Respiratory Rate 16 04/10/2019 2:15 PM MANAGER SIX SIGMA Oxygen Saturation 98% 04/10/2019 2:15 PM MANAGER SIX SIGMA Inhaled Oxygen Concentration 100% 01/22/2014 1 0:13 AM MANAGER SIX SIGMA Weight 69.5 kg (153 lb 3.5 oz) 04/10/2019 11:42 AM MANAGER SIX SIGMA Height 171.8 cm (5' 7.64 ) 04/10/2019 11:[address] Body Mass Index 23.55 04/10/2019 11:42 AM MANAGER SIX SIGMA Plan of Treatment Health Maintenance Due Date Last Done Comments HIV SCREENING 07/06/2014 HPV VACCINE (1 - Male 3-dose series) 07/06/2014 HEPATITIS C SCREENING 07/02/2017 DTAP/TDAP/TD VACCINES (1 - Tdap) 07/06/2018 HEPATITIS B VACCINE (1 of 3 - 19+ 3-dose series) 07/06/2018 COVID-19 VACCINE (1 - 2023-2 5 season) 2023 INFLUENZA VACCINE (#1) 2023 DEPRESSION SCREENING 03/11/2024 ZOSTER VACCINE (1 of 2) 07/06/2049 HIB VACCINE Aged Out No longer eligi ble based on patient's age to complete this topic MENINGOCOCCAL (Group B) VACCINE Aged Out No longer eligible based on patient's age to complete this topic MENINGOCOCCAL VACCINE Aged Out No cassi armando eligible based on patient's age to complete this topic PNEUMOCOCCAL VACCINE Aged Out No long er eligible based on patient's age to complete this topic Care Teams Irrigation Flume Layer Relationship Specialty Start Date End Date Laine Sharp MD [address] [facility] [address] [place] [address] PCP - General Pediatrics 12/31/13
--- OUTSIDE RECORDS SUMMARY | 2024-03-21 22:02 | XMS_ITS | Encounter Summary ---
Author Organization [facility] Address [address] [facility] [place] [address] Care Team Providers Care Supervisor Dyer Name Role Phone Laine Sharp MD Primary Care Provider Reason for Visit * Auth/Cert Specialty Diagnoses / Procedures Referred By Contac t Referred To Contact Procedures ESOPHAGOGASTRODUODENOSCOPY (EGD) BIOPSY COLONOSCOPY BIOPSY (ANY METHOD) Referral ID Status Reason Start Date Expiration Date Visits Re quested Visits Authorized [id number] 1 1 Encounter Details Date Type Department Care Team (Late st Contact Info) Description 04/10/2019 12:46 PM ASSOCIATE DIRECTOR QA Anesthesia Event [facility] [address] [place] [address] Feliz Ordonez MD [address] [place] [address] Arie Lopez DO [address] [place] [address] Anesthesia Record Procedure Summary Procedure Name Responsible Anesthesiologist Anesthesia Start Time Anesthesia Stop Time ESOPHAGOGASTRODUODENOSCOPY ( EGD) BIOPSY Feliz Ordonez MD 04/10/19 1246 04/10/19 1331 Events Date Time Event Comment 04/10/2019 1159 1246 An Start To OR monitors applied, Time Out performed. 1246 An Start Data 1248 PT Reassessment 1250 An Induction IV induction as noted. 1255 Timeout Anesthesia part icipated in timeout at the time documented in the record by nursing. 1327 An Emergence 1327 an stop data 1328 ANPTO2 1330 Electnc Sig 1331 An Stop Patient transpo rted to PACU on O2, with SpO2 monitoring. Report Given to PACU Nurse. Questions answered. Meds Name Total midazolam 2 mg/2mL injection 2 mg fentaNYL 100 mcg/2mL injection 100 mcg propofol 200mg/20mL injection 120 mg propofol 500 mg/50mL injection 389.2 mg isolyte-S pH 7.4 infusion 1,000 mL * Agents Name Insp. N2O Exp. Sevoflurane Insp. Sevoflurane * Blood No blood administrations on file. Lines, Drains, and Airways Type Details Placement Removal Peripheral IV Date: 04/10/19; Time: 1213; Orientation: Right; Placed By: Roge Munoz RN; Tolerance: Well 04/10/19 1213 by Edel Munoz RN 04/10/19 1405 by Kathleen Queen RN Procedural Site (Incision) 04/10/19; 1238; Anal/Rectal; 04/10/19; 204204/10/19 1238 by Judi Brower RN 04/10/192042 by Generic, Auto Release Procedural Site (Incision) 04/10/19; 1238; Mouth; 04/10/19; 204204/10/19 1238 by Judi Brower RN 04/10/192042 by Generic, Auto Release documented in this encounter Social History Tobacco Use Types Packs/Day Years Used Date Smoking Tobacco: Never Smokeless Tobacco: Never Alcohol Use Standard Drinks/Week Comments No 0 (1 standard drink = 0.6 oz pur e alcohol) Sex and Gender Information Value Date Recorded Sex Assigned at Not on file Gender Identity Not on file Sexual Orientation Not on file documented as of this encounter Functional Status [...] No 04/10/2019 documented as of this encounter Progress Notes * Fito Fonseca MD - 04/10/2019 2:09 PM CST ANESTHESIA POSTOP EVALUATION NOTE Procedure: ESOPHAGOGASTRODUODENOSCOPY (EGD) BIOPSY COLONOSCOPY BIOPSY (ANY METHOD) Lavelle Michael is a 18 year old male Patient Vitals for the past 6 hrs: BP Temp Pulse Resp SpO2 Pain Scale/Observation 04/10/19 1142 -- 99.3 ??F (37.4 ??C) -- -- -- -- 04/10/19 1152 116/72 -- 80 16 98 % No/denies pain 04/10/19 1330 (!) 79/43 99 ??F (37.2 ??C) 52 14 97 % B 04/10/19 1345 97/50 -- 78 16 96 % B 04/10/19 1400 103/60 -- 64 16 98 % B Anesthesia Type: general * No Diagnosis Codes entered * Mental Status: awake Respiratory Function: natural Cardiac Function: stable Postop Pain: acceptable to the patient Postop Hydration: adequate Postop Nausea: none Assessment: no apparent anesthetic complications and patient tolerated procedure well Patient Disposition: Release from Anesthesia Care Non Reportable Improvement Section (otherwise blank): CIATE DIRECTOR QA * Feliz Ordonez MD - 04/10/2019 12:01 PM CST ANESTHESIA PREOPERATIVE EVALUATION NOTE Procedure: ESOPHAGOGASTRODUODENOSCOPY (EGD) BIOPSY COLONOSCOPY BIOPSY (ANY METHOD) NPO status: Since Midnight (04/10/2019 11:45 AM) Vitals: Patient Vitals for the past 6 hrs: BP Temp Pulse Resp SpO2 04/10/19 1152 116/72 -- 80 16 98 % 04/10/19 1142 -- 99.3 ??F (37.4 ??C) -- -- -- ANESTHESIA PRE-EVALUATION NOTE History of Present Illness: The patient is a 18-year-old young man with eosinophilic esophagitis and enterocolitis. Anes Plan BMI, Height, Weight Tobacco History Estimated body mass index is 23.55 kg/m?? as calculated from the following: Height as of this encounter: 1.718 m (5' 7.64 ). Weight as of this encounter: 69.5 kg (153 lb 3.5 oz). Social History Tobacco Use Smoking Status Never Smoker Smokeless Tobacco Never Used Alcohol History Drug History Social History Substance and Sexual Activity Alcohol Use No Social History Substance and Sexual Activity Drug Use No Outpatient Medications: Inpatient Medications: Outpatient Medications Marked as Taking for the 04/10/19 encounter (Hospital Encounter) Medication Sig Last Dose ??? esomeprazole Take 1 capsule by mouth daily before breakfast 04/09/2019 at Unknown time Current Facility-Administered Medications Medication Dose Last Dose ??? isolyte-S pH 7.4 Allergies: Allergies Allergen Reactions ??? Other CLEAR TAPE CAUSED IRRITATION. PLEASE USE CLOTH TAPE Relevant Problems No relevant active problems Problem List: Patient Active Problem List Diagnosis Date Noted ??? Abnormal weight loss 11/16/2016 Priority: Not Prioritized ??? Rectal polyp 11/16/2016 Priority: Not Prioritized ??? Eczema 02/12/2012 ??? Allergic rhinitis 02/12/2012 01/09/12: IgE immunocaps + for mold, dust mites, cat, dog Trace sensitivity to trees, weeds, and cow. ??? Food allergy 02/12/2012 01/09/12: IgE immunocaps Sensitivity to milk, wheat, peanut, barley, rye, gluten and beef. Trace sensitivity to numerous other foods. 02/12/12: an elimination diet for milk, wheat, peanut and tree nuts was recommended. ??? Eosinophilia 11/10/2011 Patient admitted for abdominal pain and diarrhea [...] concern of neoplasia with high eosinophlis in bonemarrow aspirate, cytogenetics were normal, leukemia panel and bone marrow biopsy nl. See Dr perez'sprogress note from 11/21/11. Pt showed significant clinical improvement after starting prednisone 20 bid and slowly tapered to off in 5 week span. ??? EE (eosinophilic esophagitis) and Eosinophilic Enterocolitis 11/09/2011 11/16/11: EGD on showed severe eosinophilic esophagitis,gastritis,duodunitis, [...] after that scope. A colonoscopy is scheduled. ??? ADHD (attention deficit hyperactivity disorder) 11/09/2011 - Continue home Adderall and Vyvanse Medical History: Past Medical History: Diagnosis Date ??? Abdominal pain, diarrhea, emesis 11/09/2011 admitted hosp 3-4 week hx ??? ADHD (attention deficit hyperactivity disorder) on adderall and vyvanse ??? Eosinophilia 11/10/2011 ??? Unspecified asthma(493.90) dx 2004 exercise induced asthma--uses albuterol prn--last used 06/2011--never hosp last ER visit 2008 Surgical History: Past Surgical History: Procedure Laterality Date ??? [...] BIOPSY ??? Orchiopexy 11/27/2002 -Dr Beaver ??? [place] EGD FLEX TRANSORAL W BX SNGL OR MULT NOV 2011 dx with EE Lab Results: CIATE DIRECTOR QA documented in this encounter Miscellaneous Notes * Addendum Note - Feilz Ordonez MD - 04/10/2019 2:22 PM CST Addendum created 04/10/19 142 by Feliz Ordonez MD Attestation recorded in Intraprocedure, Intraprocedure Attestations filed CIATE DIRECTOR QA * Anesthesia Transfer of Care - David Suazo Anes Asst - 04/10/2019 1:35 PM CST ANESTHESIA TRANSFER OF CARE NOTE Today's Date: 04/10/2019 Date of : 2000 Patient: Lavelle Michael Procedure(s): ESOPHAGOGASTRODUODENOSCOPY (EGD) BIOPSY COLONOSCOPY BIOPSY (ANY METHOD) Surgeon(s): Primary: Kenzie Cobb MD Preop Diagnosis: * No Diagnosis Codes entered * Pre-op Meds (From admission, onward) Start Stop Status Route Frequency Ordered 04/10/19 1230 isolyte-S pH 7.4 infusion -- Dispensed IV CONTINUOUS 04/10/19 1146 * No Diagnosis Codes entered * . Allergies Allergen Reactions ??? Other CLEAR TAPE CAUSED IRRITATION. PLEASE USE CLOTH TAPE Vitals: Patient Vitals for the past 3 hrs: BP Temp Pulse Resp SpO2 04/10/19 1152 116/72 -- 80 16 98 % 04/10/19 1142 -- 99.3 ??F (37.4 ??C) -- -- -- Lines, Drains, and Airways Type Details Placement Removal Peripheral IV Date: 04/10/19; Time: 1213; Orientation: Right; Location: Hand; Placed By: Roge Munoz RN; Gauge: 20 Gauge; Locals: None; Tolerance: Well 04/10/19 1213 by Edel Munoz RN Intraprocedure I/O Totals isolyte-S pH 7.4 infusion Volume infused 1000 ml Patient Transfer Location: PACU Transport Airway: spontaneous respirations and supplemental O2 Transport Monitoring: heart rate and continuous pulse oximetry Complications: None Handoff Given? Yes Checklist or Protocol - The todd handoff elements that must be included in the transfer of care checklist include: 1. Identification of patient. 2. Identification of responsible practitioner (PACU nurse or advanced practitioner). 3. Discussion of pertinent medical history. 4. Discussion of the surgical/procedure course (procedure, reason for surgery, procedure performed). 5. Intraoperative anesthetic management and issue/concerns. 6. Expectations/Plans for the early post-procedure period. 7. Opportunity for questions and acknowledgement of understanding of report from the receiving PACUteam. Luh Reis CIATE DIRECTOR QA * Anesthesia Transfer of Care - David Suazo Anes Asst - 04/10/2019 1:32 PM CST ANESTHESIA TRANSFER OF CARE NOTE Today's Date: 04/10/2019 Date of : 2000 Patient: Lavelle Michael Procedure(s): ESOPHAGOGASTRODUODENOSCOPY (EGD) BIOPSY COLONOSCOPY BIOPSY (ANY METHOD) Surgeon(s): Primary: Kenzie Cobb MD Preop Diagnosis: * No Diagnosis Codes entered * Pre-op Meds (From admission, onward) Start Stop Status Route Frequency Ordered 04/10/19 1250 fentaNYL (PF) (SUBLIMAZE) injection -- Sent PRN 04/10/19 1255 04/10/19 1230 isolyte-S pH 7.4 infusion -- Dispensed IV CONTINUOUS 04/10/19 1146 04/10/19 1246 isolyte-S pH 7.4 infusion -- Sent IV CONTINUOUS PRN 04/10/19 1256 04/10/19 1246 midazolam (VERSED) injection -- Sent PRN 04/10/19 1255 04/10/19 1250 propofol (DIPRIVAN) infusion -- Sent CONTINUOUS PRN 04/10/19 1255 04/10/19 1250 propofol (DIPRIVAN) injection -- Sent IV PRN 04/10/19 1255 * No Diagnosis Codes entered * . Allergies Allergen Reactions ??? Other CLEAR TAPE CAUSED IRRITATION. PLEASE USE CLOTH TAPE Vitals: Patient Vitals for the past 3 hrs: BP Temp Pulse Resp SpO2 04/10/19 1152 116/72 -- 80 16 98 % 04/10/19 1142 -- 99.3 ??F (37.4 ??C) -- -- -- Lines, Drains, and Airways Type Details Placement Removal Peripheral IV Date: 04/10/19; Time: 1212; Orientation: Right; Location: Hand; Placed By: Roge Munoz RN; Gauge: 20 Gauge; Locals: None; Tolerance: Well 04/10/19 1213 by Edel Munoz RN Intraprocedure I/O Totals isolyte-S pH 7.4 infusion Volume infused 1000 ml Patient Transfer Location: PACU Transport Airway: spontaneous respirations and supplemental O2 Transport Monitoring: heart rate and continuous pulse oximetry Complications: None Handoff Given? Yes Checklist or Protocol - The todd handoff elements that must be included in the transfer of care checklist include: 1. Identification of patient. 2. Identification of responsible practitioner (PACU nurse or advanced practitioner). 3. Discussion of pertinent medical history. 4. Discussion of the surgical/procedure course (procedure, reason for surgery, procedure performed). 5. Intraoperative anesthetic management and issue/concerns. 6. Expectations/Plans for the early post-procedure period. 7. Opportunity for questions and acknowledgement of understanding of report from the receiving PACUteam. Luh Reis CIATE DIRECTOR QA documented in this encounter Plan of Treatment Not on file documented as of this encounter Visit Diagnoses Not on filedocumented in this encounter Administered Medications Inactive Administered Medications - up to 3 most recent administrations Medication Order MAR Action Action Date Dose Rate Site fentaNYL (PF) (SUBLIMAZE) injection PRN, Starting on Sat04/10/19 at 1250, Until Sat04/10/19 at 1335, Anesthesia Intra-op $ Given 04/10/2019 1:12 PM ASSOCIATE DIRECTOR QA 50 mcg $ Given 04/10/2019 12:50 PM ASSOCIATE DIRECTOR QA 50 mcg isolyte-S pH 7.4 infusion Intravenous, CONTINUOUS PRN, Starting on Sat04/10/19 at 1246, Until Sat04/10/19 at 1335, Anesthesia Intra-op $ New Bag/Syringe 04/10/2019 1:30 PM ASSOCIATE DIRECTOR QA $ New Bag/Syringe 04/10/2019 12:58 PM ASSOCIATE DIRECTOR QA $ New Bag/Syringe 04/10/2019 12:46 PM ASSOCIATE DIRECTOR QA midazolam (VERSED) injection PRN, Starting on Sat04/10/19 at 1246, Until Sat04/10/19 at 1335, Anesthesia Intra-op $ Given 04/10/2019 12:46 PM ASSOCIATE DIRECTOR QA 2 mg propofol (DIPRIVAN) infusion CONTINUOUS PRN, Starting on Sat04/10/19 at 1250, Until Sat04/10/19 at 1335, Anesthesia Intra-op Rate Change 04/10/2019 1:20 PM ASSOCIATE DIRECTOR QA 100 mcg/kg/min 41.7 mL/hr Rate Change 04/10/2019 1:12 PM ASSOCIATE DIRECTOR QA 150 mcg/kg/min 62.55 mL /hr Rate Change 04/10/2019 1:02 PM ASSOCIATE DIRECTOR QA 125 mcg/kg/min 52.13 mL /hr propofol (DIPRIVAN) injection Intravenous, PRN, Starting on Sat04/10/19 at 1250, Until Sat04/10/19 at 1335, Anesthesia Intra-op $ Given 04/10/2019 1:12 PM ASSOCIATE DIRECTOR QA 20 mg $ Given 04/10/2019 12:53 PM ASSOCIATE DIRECTOR QA 50 mg $ Given 04/10/2019 12:50 PM ASSOCIATE DIRECTOR QA 50 mg documented in this encounter Care Teams Supervisor Dyer Relationship Specialty Start Date End Date Laine Sharp MD [address] [id number] PCP - General Pediatrics 12/31/13 documented as of this encounter
--- OUTSIDE RECORDS SUMMARY | 2024-03-21 22:02 | XMS_ITS | Referral Summary ---
Author Organization [facility] Address [address] [facility] [address] [place] [address] Care Team Providers Care Primer Inserting Machine Adjuster Name Role Phone Laine Sharp MD Primary Care Provider [phone] Source Comments [facility],non-owned Affiliates and Associated Physician Practices is amultiple site organization consisting of ambulatory clinics and hospital sitesin [place], [place], [place] and [place]. This disclosure is being madepursuant to the Care Everywhere program and may not contain all information available regarding this patient. Last updated 17.[facility] Allergies Active Allergy Reactions Criticality Noted Date [...] if flushing attack recurs - Avoid Compazine Social History Tobacco Use Types Packs/Day Years [...] Comments Blood Pressure 110/64 04/10/2019 2:15 PM CASHIER SELF SERVICE GASOLINE Pulse 64 04/10/2019 2:00 PM CASHIER SELF SERVICE GASOLINE Temperature 37.2 ??C (99 ??F) 04/10/2019 1:30 PM CASHIER SELF SERVICE GASOLINE Respiratory Rate 16 04/10/2019 2:15 PM CASHIER SELF SERVICE GASOLINE Oxygen Saturation 98% 04/10/2019 2:15 PM CASHIER SELF SERVICE GASOLINE Inhaled Oxygen Concentration 100% 01/22/2014 1 0:13 AM CASHIER SELF SERVICE GASOLINE Weight 69.5 kg (153 lb 3.5 oz) 04/10/2019 11:42 AM CASHIER SELF SERVICE GASOLINE Height 171.8 cm (5' 7.64 ) 04/10/2019 11:42 AM Roge LAURA Body Mass Index 23.55 04/10/2019 11:42 AM CASHIER SELF SERVICE GASOLINE Functional Status Functional Status Response Date of [...] person have difficulty concentrating/remembering/making decisions? No 04/10/2019 Plan of Treatment Not on file Care Teams Primer Inserting Machine Adjuster Relationship Specialty Start Date End Date Laine Sharp MD [address] [id number] PCP - General Pediatrics 12/31/13
--- OUTSIDE RECORDS SUMMARY | 2024-03-21 22:02 | XMS_ITS | Encounter Summary ---
Author Organization [facility] Address [address] [place] [address] Care Team Providers Care Interactive Multimedia Designer Name Role Phone Laine Sharp MD Primary Care Provider [phone] [phone] Reason for Visit * Reason Onset Date Comments Results 03/12/2019 Encounter Details Date Type Department Care Team (Late st Contact Info) Description 03/12/2019 Telephone [facility] - [address] [place] [address] Kenzie Cobb MD [facility] [place] [address] Results Social History Tobacco Use Types Packs/Day Years [...] or have serious hearing difficult y? No 10/01/2016 Is person blind or have serious difficulty seein g? No 10/01/2016 Does person have serious dif ficulty walking/climbing stairs? No 10/01/2016 Does person have difficulty dressing/bathing? No 10/01/2016 Does person have difficulty doing errands alone? No 10/01/2016 Cognitive Status Response Date of Assessm ent Does person have difficulty concentrating/remembering/making decisions? No 10/01/2016 documented as of this encounter Miscellaneous Notes * Telephone Encounter - Blossom Lujan RN - 05/11/2019 9:30 AM JOURNEYMAN CARPENTER Dad returned call, they would like to restart the flovent, Rx should go to the [facility] in [place]. NEYMAN CARPENTER * Telephone Encounter - Blossom Lujan RN - 05/11/2019 8:45 AM JOURNEYMAN CARPENTER LM on mom's unidentified VM to call us. NEYMAN CARPENTER * Telephone Encounter - Jennifer Alonzo RN - 05/08/2019 8:38 AM CST Left message for call back. NEYMAN CARPENTER * Telephone Encounter - Blossom Lujan RN - 05/07/2019 8:57 AM JOURNEYMAN CARPENTER LM to call us. NEYMAN CARPENTER * Telephone Encounter - Faith Quispe MD - 05/07/2019 8:52 AM JOURNEYMAN CARPENTER Can you follow-up on this? Thanks NEYMAN CARPENTER * Telephone Encounter - Jennifer Alonzo RN - 04/20/2019 9:52 AM CST Spoke with Lavelle and relayed message. He would like to talk over the medication with his dad and let us know what he decides. He will call back. NEYMAN CARPENTER * Telephone Encounter - Jennifer Alonzo RN - 04/17/2019 2:42 PM CST LM for call back. NEYMAN CARPENTER * Telephone Encounter - Kenzie Cobb MD - 04/17/2019 2:12 PM CST Please let family know that biopsies from scope showseosinophilic esophagitis and he had a little higher blood eosinophil count. We can restart meds for EoE - Flovent 220 mcg 2 pufs swallowed BID - but he is 18 and going to college so need to know if that's what he wants to do). He has had EoE withevery scope that he has had. He also still has that tiny polyp in the last part of his colon that is fine (NOT precancer). He could get a repeat colonoscopy in 10 years if he is otherwise doing fine NEYMAN CARPENTER * Telephone Encounter - Elena Santillan RN - 03/13/2019 3:28 PM JOURNEYMAN CARPENTER Verified orders in epic. Prep letter sent via email. NEYMAN CARPENTER * Telephone Encounter - Kamryn Lew - 03/13/2019 3:20 PM CST EGD/Colon scheduled for Saturday04/10/2019 at 12:[address] Cobb and Dr. Quispe. Mom would like prep e-mailed to her at [email or web address] NEYMAN CARPENTER * Telephone Encounter - Kamryn Lew - 03/12/2019 12:44 PM CST Tried both numbers with no answer. Left message on primary number. NEYMAN CARPENTER * Telephone Encounter - Kamryn Lew - 03/12/2019 12:44 PM CST ----- Message from Corrine Lara RN sent at 03/12/2019 10:00 AM JOURNEYMAN CARPENTER ----- Regarding: Scheduling an upper and lower scope Hello, Can you schedule this patient for an upper and lower scope, first available with Dr. Quispe and ? Family has no preference on day of the week. No instructions given to family. Corrine Rojas NEYMAN CARPENTER documented in this encounter Plan of Treatment Not on file documented as of this encounter Visit Diagnoses Diagnosis EE (eosinophilic esophagitis) Eosinophilic esophagitis documented in this encounter Care Teams Interactive Multimedia Designer Relationship Specialty Start Date End Date Laine Sharp MD [address] [place] [phone] PCP - General Pediatrics 12/31/13 documented as of this encounter
--- OUTSIDE RECORDS SUMMARY | 2024-03-21 22:03 | XMS_ITS | Encounter Summary ---
Author Organization [facility] Address [address] [place] [address] Care Team Providers Care Rehabilitation Teacher Name Role Phone Laine Sharp MD Primary Care Provider Reason for Referral * Procedure (Routine) - Closed Specialty Diagnoses / Procedures Referred By Leonard gonzalez Referred To Contact Gastroenterology Diagnoses EE (eosinophilic esophagitis) Procedures EGD Kenzie Cobb MD [address] [place] [id number] Referral ID Status Reason Start Date Expiration Date Visits Re quested Visits Authorized [id number] Closed 07/19/2016 01/15/2017 1 1 Reason for Visit * Reason Comments Eosinophilic Esophagitis Encounter Details Date Type Department Care Team (Latest Contact Info) Description 07/19/2016 3:26 PM CDT - 07/19/2016 11:59 PM CDT Hospital Encounter [facility] Pediatrics - GI [address] [place] [phone] Kenzie Cobb MD [address] [place] [phone] Discharge Disposition: Home or Self Care Social [...] Sign Reading Time Taken Comments Blood Pressure 120/64 07/19/2016 3:44 PM CDT Pulse - - Temperature - - Respiratory Rate - - Oxygen Saturation - - Inhaled Oxygen Concentration - - Weight 93.3 kg (205 lb 11 oz) 07/19/2016 3:44 PM CDT Height 170 cm (5' 6.93 ) 07/19/2016 3:44 PM CDT Body Mass Index 32.28 07/19/2016 3:44 PM CDT Body Mass Index Percentile 97.30% 07/19/2016 3:4 4 PM CDT Growth Chart: [facility] (Boys, 2-2 0 Years) documented in this encounter Discharge Instructions * Patient Instructions* Kenzie Cobb MD - 07/19/2016 4:08 PM CDT 1. We will schedule an upper scope to evaluate EoE - this scope will be done on no medication and no diet elimination documented in this encounter Medications at Time of Discharge Medication Sig Dispensed Refills Start Date End Date esomeprazole (NEXIUM) 40 MG capsule Take 1 Cap by mouth daily before breakfast 30 Cap 6 09/14/2015 10/01/2016 fluticasone hfa 220 (FLOVENT HFA) 220 MCG/ACT inhalerIndications:Eo sinophilic Esophagitis Take 2 puffs twice daily orally while holding breath 1 minute apart, then drink some water. Reasons: Eosinophilic Esophagitis 1 Inhaler 6 02/28/2015 10/01/2016 loratadine (CLARITIN) 10 MG tablet Take 10 mg by mouth once daily. 10/01/2016 mometasone (ELOCON) 0.1 % ointmentIndications:E czema Apply to affected area once daily as needed (for red, itchey skin). 15 g 6 02/12/2012 10/17/2016 documented as of this encounter Progress Notes * Kenzie Cobb MD - 07/19/2016 3:59 PM CDT CHIEF COMPLAINT: Eosinophilic Esophagitis Lavelle Michael was seen in the Pediatric GI clinic along with his parents in followup HISTORY: Lavelle is a 16 y.o. male who presents with a chief complaint of followup eosinophilic disease To [facility], he initially presented in November 2011 for symptoms of abdominal pain and diarrhea withprofound peripheral eosinophilia. Infectious etiologies ruled out. ONcology involved, BM and labs not c/w malignancy. He underwent EGD, colonoscopy which revealed eosinophils throughout the GI tract.IMproved with oral steroids, that resurfaced after steroids weaned. He was referred to [facility]. Although initially had recommended 6mp for maintenance of remission, family was hesistant . I had a?? Phone conversation?? With Dr. Hinojosa as well, and umang family's hestiation as well as lack of robust data guiding immunomodulator management in this case. We elected to hold off on this and follow him clinically. Lavelle has acutally done remarkably well. Last EGD/colonoscopy in January 2014 revealed signficantEoE (only on once daily swallowed Flovent) and mild eosiniphilia throughout oclon. He has had signficant growth - another 50 lb weight gain since last visit. BMI now elevated to 32. He reports being completely asympomtatic. He admits non ahderence to any specific dietary therapy nor is he taking any medications. He is not having diarrhea. No blood in the stools. No weight loss. No flushing. PAST MEDICAL HISTORY: Lavelle's past medical history includes: Past Medical History: Diagnosis Date ??? Abdominal pain, diarrhea, emesis 11/09/2011 admitted hosp 3-4 week hx ??? ADHD (attention deficit hyperactivity disorder) on adderall and vyvanse ??? Eosinophilia 11/10/2011 ??? Eosinophilic esophagitis ??? Eosinophilic gastroenteritis and colitis ??? Unspecified asthma dx 2004 exercise induced asthma--uses albuterol prn--last used 06/2011--never hosp last ER visit 2008 Lavelle's past surgical history includes: Past Surgical History: Procedure Laterality Date ??? BONE MARROW BIOPSY 11/16/2011 Right; BONE MARROW BIOPSY- WAS OK ??? COLONOSCOPY WITH BIOPSY nov 2011 dx with EE/ R/o IBS ??? COLONOSCOPY WITH BIOPSY 05/05/2012 COLONOSCOPY BIOPSY ??? COLONOSCOPY WITH BIOPSY 02/20/2013 COLONOSCOPY BIOPSY ??? COLONOSCOPY WITH BIOPSY 01/22/2014 COLONOSCOPY BIOPSY ??? ENDOSCOPY, UPPER 02/20/2013 ENDOSCOPY GI UPPER WITH BIOPSY ??? ENDOSCOPY, UPPER 01/22/2014 ENDOSCOPY GI UPPER WITH BIOPSY ??? Orchiopexy 11/27/2002 -Dr Beaver ??? ID EGD FLEX TRANSORAL W BX SNGL OR MULT NOV 2011 dx with EE No history on file. SOCIAL HISTORY: Social History Social History Narrative Lives with mother, father, brother, and sister. . FAMILY HISTORY: Family History Problem Relation Age of Onset ??? GERD - Gastroesophageal Reflux Disease Father ??? Esophagitis Sister EoE REVIEW OF SYSTEMS GEN: no fevers, chills or weight loss HEENT: no cough, cold, congestion, rhinorrhea, mouth ulcers, sore throat CV: no known cardiac disease PULM: no known respiratory disorders GI: see HPI above; negative for abdominal pain, nausea, vomiting, diarrhea, constipation, hematochezia and melena : no dysuria or hematuria HEME: no easy bleeding or bruising NEURO: no headaches, no seizures PSYCH: no history of mental illness ALL/IMMUNO: positive CURRENT MEDICATIONS: Current Outpatient Prescriptions Medication Sig Dispense Refill ??? esomeprazole (NEXIUM) 40 MG capsule Take 1 Cap by mouth daily before breakfast 30 Cap 6 ??? fluticasone hfa 220 (FLOVENT HFA) 220 MCG/ACT inhaler Take 2 puffs twice daily orally while holding breath 1 minute apart, then drink some water. Reasons: Eosinophilic Esophagitis 1 Inhaler 6 ??? loratadine (CLARITIN) 10 MG tablet Take 10 mg by mouth once daily. ??? mometasone (ELOCON) 0.1 % ointment Apply to affected area once daily as needed (for red, itcheyskin). 15 g 6 No current facility-administered medications for this encounter. PHYSICAL EXAM: BP 120/64 Ht 1.7 m (5' 6.93 ) Wt 93.3 kg (205 lb 11 oz) BMI 32.28 kg/m2 GEN: well nourished, awake, alert, interactive with exam in no acute distress HEENT: sclera anicteric, mucus membranes moist, no oral lesion CV: regular rate and rhythm without murmur LUNGS: clear to auscultation bilaterally, equal aeration bilat ABD: soft, not apparently tender or distended, no organomegaly, bowel sounds present : deferred EXT: warm and well perfused NEURO: no obvious deficits PSYCH: appropriate mentation for age IMPRESSION: IN summary, Lavelle is a 14 y/o M with 1. h/o eosinophilic esophagitis with severe histologic disease but asymptoatmic 2. Eosinophilic gastroenteropathy (dudodenitis, colitis), largely resolved. Discussed evaluation extent and severity of mucosal disease at length. Family would like to get a sense of this as Lavelle will be going to college next fall. Depending on findings, he may benefit more stringent adherence to prevent issues such as esophageal stricture necessitating dilation. PLAN: Orders Placed This Encounter ??? EGD Standing Status: Future Standing Expiration Date: 07/19/2017 Patient Instructions 1. We will schedule an upper scope to evaluate EoE - this scope will be done on no medication and no diet elimination Plan of care, including education on the safe and effective use of medication(s) and/or medical equipment if prescribed, was discussed with Lavelle's parents who verbalized understanding and agreed with the treatment options discussed. documented in this encounter Plan of Treatment Not on file documented as of this encounter Results * EGD (10/01/2016 10:23 AM CDT) Report Endoscopy POC _ Patient Name: Lavelle Michael ? Date of : 2000 ?Admit Type: Outpatient Age: 16 ? Gender: Male Attending MD: Kenzie Cobb , ?Order #: [id number] _ Procedure: ? Upper GI endoscopy Indications: [...] Procedure Code(s): ? --- Professional --- ? 35693, Esophagogastroduod enoscopy, flexible, transoral; with biopsy, ? single or multiple ? --- Technical --- ? 36005, Esophagogastroduod enoscopy, flexible, transoral; with biopsy, ? single or multiple Diagnosis Code(s): ? --- Professional --- ? K29.80, Duodenitis without bleeding ? K20.0, Eosinophilic esophagitis ? --- Technical --- ? K29.80, Duodenitis without bleeding ? K20.0, Eosinophilic esophagitis CPT copyright 2015 [employer]. All rights reserved. The codes documented in this report are preliminary and upon floor helper review may be revised to meet current compliance requirements. Dr. Kenzie Cobb Kenzie Cobb, 10/01/2016 2:12:40 PM This report has been signed electronically. Number of Addenda: 0 Note Initiated On: 09/28/2016 10:23 AM Procedure Date: ? 10/01/2016 10:23:00 AM ? This report has been signed electronically. [facility] 10/01/2016 10:2 3 AM CDT Kenzie Cobb MD GI PROCEDURE ORDERAB LES Performing Organization Address City/State/[facility] Co de Phone Number [facility] [address] [place] [address] documented in this encounter Visit Diagnoses Diagnosis EE (eosinophilic esophagitis) and Eosinophilic Enterocolitis- Primary Eosinophilic esophagitis documented in this encounter Care Teams Rehabilitation Teacher Relationship Specialty Start Date End Date Laine Sharp MD [address] [facility] [address] [place] [phone] PCP - General Pediatrics 12/31/13 documented as of this encounter
--- OUTSIDE RECORDS SUMMARY | 2024-03-21 22:03 | XMS_ITS | Encounter Summary ---
Author Organization [facility] Address [address] [place] [address] Care Team Providers Care Tube Puller Name Role Phone Laine Sharp MD Primary Care Provider [phone] Reason for Visit * Reason Onset Date Comments Results 01/29/2014 Encounter Details Date Type Department Care Team (Late st Contact Info) Description 01/29/2014 Telephone [facility] Pediatrics - [address] [place] [address] Kenzie Cobb MD [address] [place] [address] Results Social History Tobacco Use Types Packs/Day Years Used Date Smoking Tobacco: Never Smokeless Tobacco: Never Alcohol Use Standard Drinks/Week Comments No 0 (1 standard drink = 0.6 oz pur e alcohol) Sex and Gender Information Value Date Recorded Sex Assigned at Not on file Gender Identity Not on file Sexual Orientation Not on file documented as of this encounter Miscellaneous Notes * Telephone Encounter - Blossom Lujan RN - 01/29/2014 12:25 PM PAPER DELIVERER Mom verified that she received message. R DELIVERER * Telephone Encounter - Kenzie Cobb MD - 01/29/2014 11:25 AM CST I left message on voicemail about Lavelle (and his sister) biopsy results Lavelle had significant EoE.Sylvia cohen was only taking Flovent once daily due to misunderstanding, now taking twice daily. I advised that Lavelle and his sister need an Allergy appt for follow up EoE Lavelle did not have many eosinophils in his colon (as he has severe eosinophilic disease throughouthis GI tract ~2 years ago I left message to call back if they have any questions, but can you also call to make sure they gotthis message? Thanks!! R DELIVERER documented in this encounter Plan of Treatment Not on file documented as of this encounter Visit Diagnoses Not on filedocumented in this encounter Care Teams Tube Puller Relationship Specialty Start Date End Date Laine Sharp MD [address] [phone] PCP - General Pediatrics 12/31/13 documented as of this encounter
--- OUTSIDE RECORDS SUMMARY | 2024-03-21 22:03 | XMS_ITS | Encounter Summary ---
Author Organization [facility] Address [address] [facility] [address] Care Team Providers Care Turbine Engineer Name Role Phone Laine Sharp MD Primary Care Provider [phone] Reason for Referral * Procedure (Routine) - Closed Specialty Diagnoses / Procedures Referred By Leonard gonzalez Referred To Contact Gastroenterology Diagnoses Eosinophilic colitis Procedures ENDOSCOPY, COLON, DIAGNOSTIC Kenzie Cobb MD [address] [place] [phone] Referral ID Status Reason Start Date Expiration Date Visits Re quested Visits Authorized [id number] Closed 10/09/2016 04/07/2017 1 1 Reason for Visit * Reason Onset Date Comments Results 10/08/2016 Encounter Details Date Type Department Care Team (Late st Contact Info) Description 10/08/2016 Telephone [facility] Pediatrics - GI [address] [place] [id number] Kenzie Cobb MD [address] [place] [phone] Results Social History Tobacco Use Types Packs/Day [...] encounter Miscellaneous Notes * Telephone Encounter - Kiley Silva - 10/26/2016 12:31 PM CDT Spoke with mom, outpatient Colon rescheduled to 11/16/16 at 11:[address] Cobb. * Telephone Encounter - Lissette Ya - 10/10/2016 2:59 PM CDT [facility] paperwork e-mailed to mom per her request. E-mail listed on pervious note. * Telephone Encounter - Blossom Lujan RN - 10/10/2016 7:15 AM CDT Colon prep letter mailed to home address, [facility] paperwork completed & to Dr Cobb to sign. * Telephone Encounter - Lissette Ya - 10/09/2016 8:49 AM CDT Spoke with mom, scheduled outpatient Colon 10/30/2016 @ 11:[address] Cobb(E-mail [email or web address]) * Telephone Encounter - Tiffany Monzon RN - 10/09/2016 8:10 AM CDT Spoke to mom, reviewed biopsy results and plan per Dr. Cobb. Mom verbalizes understanding. Requesting new [place] paperwork for the colonoscopy. Mom will fax to the office. Orders entered for colonoscopy. Will have secretaries call to schedule. Left message for Kiley with [facility] to call mom and schedule appointment. * Telephone Encounter - Kenzie Cobb MD - 10/08/2016 1:59 PM CDT Please let family know that scope showed severe eosinophilic esophagitis but actually his stomach and the first part of his small intestine did not look that bad Let's restart swallowed steroid (I escribed this), schedule a follow up with Dr. Goff ,and move forward with our plan for scheduling a colonoscopy. His labs looked ok, his eos count was high but not that high (600) * Telephone Encounter - Tiffany Monzon RN - 10/08/2016 11:43 AM CDT Will forward to Dr. Cobb to review. * Telephone Encounter - Kiley Silva - 10/08/2016 11:01 AM CDT Mom calling for scope results. documented in this encounter Plan of Treatment Not on file documented as of this encounter Results * ENDOSCOPY, COLON, DIAGNOSTIC (11/16/2016 6:37 AM CDT) Report Endoscopy POC _ Patient Name: Lavelle Wells ? Date of : 2000 ?Admit Type: Outpatient Age: 16 ? Gender: Male Attending MD: Stuart Miller MD ??Order #: [id number] _ Procedure: ? Colonoscopy Indications: ? Suspected [...] Procedure Code(s): ? --- Professional --- ? 09395, Colonoscopy, flexible; with biopsy, single or multiple ? --- Technical --- ? 43276, Colonoscopy, flexible; with biopsy, single or multiple Diagnosis Code(s): ? --- Professional --- ? K62.1, Rectal polyp ? --- Technical --- ? K62.1, Rectal polyp CPT copyright 2015 [employer]. All rights reserved. The codes documented in this report are preliminary and upon credit balance specialist review may be revised to meet current compliance requirements. Dr. Stuart Miller Stuart Miller MD 11/16/2016 1:19:02 PM This report has been signed electronically. Number of Addenda: 0 Note Initiated On: 11/16/2016 6:37 AM Procedure Date: ? 11/16/2016 6:37:07 AM ? This report has been signed electronically. [facility] 11/16/2016 6:37 AM CDT Kenzie Cobb MD GI PROCEDURE ORDERAB LES [facility] [address] [facility] [address] documented in this encounter Visit Diagnoses Diagnosis EE (eosinophilic esophagitis) and Eosinophilic Enterocolitis- Primary Eosinophilic esophagitis Eosinophilic colitis documented in this encounter Care Teams Turbine Engineer Relationship Specialty Start Date End Date Laine Sharp MD [address] [phone] PCP - General Pediatrics 12/31/13 documented as of this encounter
--- OUTSIDE RECORDS SUMMARY | 2024-03-21 22:03 | XMS_ITS | Encounter Summary ---
Author Organization [facility] Address [address] [facility] [place] [address] Care Team Providers Care Washroom Attendant Name Role Phone Laine Sharp MD Primary Care Provider Reason for Referral * Procedure (Routine) - Closed Specialty Diagnoses / Procedures Referred By Leonard gonzalez Referred To Contact Gastroenterology Diagnoses EE (eosinophilic esophagitis) Procedures EGD Kenzie Cobb MD [address] [place] [address] Referral ID Status Reason Start Date Expiration Date Visits Re quested Visits Authorized [id number] Closed 07/19/2016 01/15/2017 1 1 Reason for Visit * Auth/Cert Specialty Diagnoses / Procedures Referred By Leonard gonzalez Referred To Contact Diagnoses EE (eosinophilic esophagitis) EE (eosinophilic esophagitis) Procedures ENDOSCOPY GI UPPER WITH BIOPSY Referral ID Status Reason Start Date Expiration Date Visits Re quested Visits Authorized [id number] 1 1 Encounter Details Date Type Department Care Team (Latest Contact Info) Description 10/01/2016 12:52 PM CDT - 10/01/2016 2:55 PM CDT Hospital Encounter [facility] - Endoscopy [address] [place] [address] Kenzie Cobb MD [address] [place] [address] Surgery General Discharge Disposition: Home or Self [...] Sign Reading Time Taken Comments Blood Pressure 118/68 10/01/2016 2:40 PM CDT Pulse 68 10/01/2016 2:40 PM CDT Temperature 37.4 ??C (99.4 ??F) 10/01/2016 1:13 PM CD T Respiratory Rate 18 10/01/2016 2:40 PM CDT Oxygen Saturation 100% 10/01/2016 2:40 PM CDT Inhaled Oxygen Concentration - - Weight 90.9 kg (200 lb 6.4 oz) 10/01/2016 1:13 P M CDT Height 171.2 cm (5' 7.4 ) 10/01/2016 1:13 PM CDT Body Mass Index 31.01 10/01/2016 1:13 PM CDT Body Mass Index Percentile 96.54% 10/01/2016 1:1 3 PM CDT Growth Chart: [facility] (Boys, 2-2 0 Years) documented in this encounter Functional Status Functional [...] No 10/01/2016 documented as of this encounter Discharge Summaries * Kenzie Cobb MD - 10/01/2016 2:59 PM CDT Images from the original note were not included. SAME DAY SURGERY DISCHARGE SUMMARY Patient ID: Lavelle Michael [id number] 16 y.o. 2000 Discharge Date: 10/01/2016 Discharge Diagnoses: 1. EE (eosinophilic esophagitis) 2. EE (eosinophilic esophagitis) and Eosinophilic Enterocolitis Discharge Condition: Stable Discharge Medication: Please see Discharge Instructions for a complete list of medications. Discharge Procedure Orders Why you were hospitalized Order Specific Question Answer Comments Your discharge diagnosis is: Eosinophilic esophagitis [530.13.ICD-9-CM] Procedure information Lavelle had the following procedure performed: Esophagogastro duodenoscopy Order Specific Question Answer Comments [...] and increase activity level tomorrow as tolerated. Post-anesthesia instructions Lavelle has just had a procedure that required sedation, and should not be left unattended today, since there is a higher risk of falling after having anesthesia. Even though Lavelle may be awake and alert when he leaves the hospital, the effects of the sedation will most likely be present for at least 4 - 6 hours. A quiet day is recommended. Lavelle should not drive a vehicle, operate farm equipment or heavy machinery, or use the stove to cook for the next 24 hours. Recovering after your Uppder Endoscopy -- Lavelle's throat will probably be slightly sore today. This should go away within the next 24 hours. Use throat lozenges or cough drops to help ease the discomfort. -- Lavelle may notice small amounts of blood if he had polyps removed or tissue samples taken for biopsy. Follow up with provider Order Specific Question Answer Comments Follow Up Instructions: GI office will call [facility] biopsy results Kenzie Cobb MD 10/01/2016 2:59 PM documented in this encounter Discharge Instructions * Discharge Instructions* Zaira Rojo RN - 10/01/2016 2:23 PM CDT If your child has any worsening of their condition, please phone [phone] and ask for the doctor labor relations worker for GI or return to the Emergency Department. documented in this encounter Medications at Time of Discharge Medication Sig Dispensed Refills Start Date End Date mometasone (ELOCON) 0.1 % ointmentIndications:Ecz bird Apply to affected area once daily as needed (for red, itchey skin). 15 g 6 02/12/2012 10/17/2016 omeprazole (PRILOSEC) 20 MG capsule Take 1 Cap by mouth 2 times daily,before breakfast and supper 60 Cap 3 10/01/2016 03/12/2019 documented as of this encounter H&P Notes * Kenzie Cobb MD - 10/01/2016 3:00 PM CDT Surgical History and Physical Today's Date: 10/01/2016 Lavelle Michael 16 y.o. male Date of Service: 10/01/2016 Planned Procedure: upper endoscopy Indication for Procedure: follow up EoE History of Present Illness H/o EoE, EGE, eosinophilic colitis. Last check colitis in remission. Here to follow up EoE. No symptoms. NOt on meds or diet therapy Prescriptions Prior to Admission Medication Sig Dispense Refill ??? mometasone (ELOCON) 0.1 % ointment Apply to affected area once daily as needed (for red, itcheyskin). 15 g 6 Allergies Allergen Reactions ??? Milk Protein ??? Other CLEAR TAPE CAUSED IRRITATION. PLEASE USE CLOTH TAPE ??? Peanut-Derived ??? Wheat Review of Systems Pertinent items are noted in HPI Exam Vitals: 10/01/16 1313 10/01/16 1410 10/01/16 1425 10/01/16 1440 BP: 133/73 103/66 112/63 118/68 Pulse: 99 82 70 68 Resp: 16 18 18 18 Temp: 99.4 ??F SpO2: 96% 100% 100% 100% Weight: 90.9 kg (200 lb 6.4 oz) General appearance: alert, cooperative, no distress Lungs: breath sounds normal and symmetric; no rales or wheezes Heart: regular rhythm, normal S1 and S2, without murmurs, gallops or rubs Abdomen: soft without mass, non-tender, with normal bowel sounds Extremities: no clubbing, cyanosis or edema Other pertinent exam: none Data Recent Labs Component Name 10/01/16 1400 WBC 6.6 HGB 14.6 HCT 41.4 PLTCOUNT 252 No results for input(s): SODIUM, POTASSIUM, CHLORIDE, CO2, BUN, CREATININE, GLUCOSE, CALCIUM in thelast 25407 hours. No results for input(s): INR in the last 90579 hours. No results for input(s): PTT in the last 28829 hours. Assessment and Plan Risks, benefits and alternatives discussed with the patient, questions answered. Plan to perform above noted procedure. Kenzie Cobb MD documented in this encounter Miscellaneous Notes * Anesthesia Transfer of Care - Darshana Franco Anes Asst - 10/01/2016 2:13 PM CDT ANESTHESIA TRANSFER OF CARE NOTE Today's Date: 10/01/2016 Date of : 2000 Patient: Lavelle Michael Pre-op Diagnosis: EE (eosinophilic esophagitis) [K20.0] Allergies: Allergies Allergen Reactions ??? Milk Protein ??? Other CLEAR TAPE CAUSED IRRITATION. PLEASE USE CLOTH TAPE ??? Peanut-Derived ??? Wheat Procedure(s): ENDOSCOPY GI UPPER WITH BIOPSY Postop Diagnosis: as referenced in the surgical operative report Postop Pain: Adequate Analgesia Post Assessment: no apparent anesthetic complications Level of Consciousness: awake Transport Monitoring: continuous pulse oximetry Complications: None Handoff Given? [...] understanding of report from the receiving PACUteam. Anesthesiologist: Luh Bob documented in this encounter Plan of Treatment Not on file documented as of this encounter Procedures Procedure Name Priority Date/Time Associated Diagnosis Comments CBC W AUTO DIFFERENTIAL STAT 10/02/19 17 2:00 PM CDT EE (eosinophilic esophagitis) COMPREHENSIVE METABOLIC PANEL STAT 2:00 PM CDT EE (eosinophilic esophagitis) HELICOBACTER PYLORI UREASE (STL) STAT 10/01/2016 1:59 PM CDT EE (eosinophilic esophagitis) PATHOLOGY TISSUE EXAM (STL) STAT 09/09 1:41 PM CDT EE (eosinophilic esophagitis) ESOPHAGOGASTRODUODENOSCOPY (EGD) BIOPSY 10/01/2016 1:35 PM CDT EE (eosinophilic esophagitis) EGD Routine 10/01/2016 10:23 AM CDT EE (eosinophilic esophagitis) and Eosinophilic Enterocolitis documented in this encounter Results * (ABNORMAL) COMPREHENSIVE METABOLIC PANEL (10/01/2016 2:00 PM CDT) Glucose 93 70 - 105 mg/dL 10/01/2016 3:50 PM CDT [facility] Sodium 140 136 - 145 mmol/L 10/01/2016 3:50 PM CDT [facility] Potassium 4.0 3.5 - 5.1 mmol/L 10/01/2016 3:50 PM T [facility] Chloride 106 98 - 107 mmol/L 10/01/2016 3:50 PM CDT [facility] CO2 24 20 - 28 mmol/L 10/01/2016 3:50 PM CDT [facility] Calcium 8.83(L) 9.08 - 10.48 mg/dL 10/01/2016 3:50 PM CDT [facility] Anion Gap 10 5 - 20 mmol/L 10/01/2016 3:50 PM CDT [facility] BUN 10.5 5.3 - 18.7 mg/dL 10/01/2016 3:50 PM CDT [facility] Creatinine 0.89 0.61 - 1.07 mg/dL 10/01/2016 3:50 PM CDT [facility] Alkaline Phosphatase 83(L) 100 - 390 U/L 10/01/2016 3:50 PM CDT [facility] ALT 37 6 - 46 U/L 10/01/2016 3:50 PM CDT [facility] AST 23 3 - 35 U/L 10/01/2016 3:50 PM CDT [facility] Protein Total 6.5 6.3 - 8.2 gm/dL 10/01/2016 3:50 PM CDT [facility] Albumin 3.9 3.3 - 4.9 gm/dL 10/01/2016 3:50 PM CDT [facility] Bilirubin Total 0.4 0.3 - 1.2 mg/dL 10/01/2016 3:50 PM CDT [facility] eGFR by MDRD >60 mL/min/1. 73m2 10/01/2016 3:50 PM CDT [facility] Comment: eGFR calculations are not performed for children under 18 years old. eGFR by MDRD >60 mL/min/1. 73m2 10/01/2016 3:50 PM CDT [facility] Comment: eGFR calculations are not performed for children under 18 years old. Blood BLOOD SPECIMEN / Unknown Venipuncture / Unknown 10/01/2016 2:00 PM CDT 10/01/2016 2:45 PM CDT Kenzie Cobb MD LAB - CHEMISTRY RICHIE ROBINS [facility] Organization Address City/State/[facility] de Phone Number [facility] [address] [place], [place] [id number] * (ABNORMAL) CBC W AUTO DIFFERENTIAL (10/01/2016 2:00 PM CDT) [facility] WBC 6.6 4.5 - 11.0 x10E9/L 10/01/2016 2:41 PM CDT [facility] WBC Corrected x10E9/L 10/01/2016 2:41 PM CDT [facility] RBC 4.92 4.50 - 5.30 x10E12/L 10/01/2016 2:41 PM CDT [facility] Hemoglobin 14.6 13.0 - 16.0 gm/dL 10/01/2016 2:41 PM CDT [facility] Hematocrit 41.4 37.0 - 49.0 % 10/01/2016 2:41 PM [facility] MCV 84.1 78.0 - 98.0 fl 10/01/2016 2:41 PM [facility] MCH 29.7 25.0 - 35.0 pg 10/01/2016 2:41 PM [facility] MCHC 35.3 31.0 - 37.0 gm/dL 10/01/2016 2:41 PM [facility] Platelet Count 252 100 - 400 x10E9/L 10/01/2016 2:41 PM [facility] RDW-CV 12.3 11.5 - 14.0 % 10/01/2016 2:41 PM [facility] MPV 10.4(H) 6.0 - 9.5 fl 10/01/2016 2:41 PM [facility] Neutrophils % 47.4 31.0 - 78.0 % 10/01/2016 2:41 PM [facility] Lymphocytes % 34.8 13.0 - 54.0 % 10/01/2016 2:41 PM [facility] Monocytes % 7.4 4.0 - 13.0 % 10/01/2016 2:41 PM [facility] Eosinophils % 9.3(H) 0.0 - 8.0 % 10/01/2016 2:41 PM [facility] Basophils % 0.8 % 10/01/2016 2:41 PM [facility] Immature Granulocytes 0.3 % 10/01/2016 2:41 PM [facility] Neutrophil Absolute 3.15 x10E9/L 10/01/2016 2:41 PM [facility] Lymphocytes Absolute 2.31 x10E9/L 10/01/2016 2:41 PM [facility] Monocytes Absolute 0.49 x10E9/L 10/01/2016 2:41 PM [facility] Eosinophils Absolute 0.62 x10E9/L 10/01/2016 2:41 PM [facility] Basophils Absolute 0.05 x10E9/L 10/01/2016 2:41 PM [facility] Immature Granulocytes Absolute 0.02 x10E9/L 10/01/2016 2:41 PM [facility] nRBC Auto 0 /100 WBC 10/01/2016 2:41 PM CDT [facility] Blood BLOOD SPECIMEN / Unknown Venipuncture / Unknown 10/01/2016 2:00 PM CDT 10/01/2016 2:40 PM CDT Kenzie Cobb MD LAB - HEMATOLOGY ORD ERABLES Performing Organization Address [facility] de Phone Number [facility] [address] [place] [address] * HELICOBACTER PYLORI UREASE (STL) (10/01/2016 1:59 PM CDT) Helicobacter pylori Urease Initial Negative Negative 10/02/2016 3:45 PM CDT [facility] Helicobacter pylori Urease Final Negative Negative 10/02/2016 3:45 PM CDT [facility] Comment:This is an appended report. These results have been appended to a previously preliminary verified report. Microbiology GASTRIC ANTRAL BIOPSY SPECIMEN / Unknown Collection / Unknown 10/01/2016 1:59 PM CDT 10/01/2016 2:30 PM CDT Kenzie Cobb MD LAB - MICROBIOLOGY O RDERABLES Performing Organization Address [facility] de Phone Number [facility] [address] [place] [id number] * GROSS + MICRO EXAM (STL) (10/01/2016 1:41 PM CDT) Case Report Surgical Pathology Report ? Case: [id number] ? Authorizing Provider: ??Kenzie Cobb MD ?Collected: ? 10/01/2016 01:41 PM ? Ordering Location: ? [facility] ?Received: ?10/01/2016 02:18 PM ? Pathologist: ? Laury Matos MD ? Specimens: ?? A) - Duodenal Biopsy ? B) - Stomach Biopsy ? C) - Esophageal Biopsy, distal ? D) - Esophageal Biopsy, mid ? 10/03/2016 10:44 AM [facility] Final Diagnosis A. DUODENUM BIOPSY: - MILD HISTOLOGIC ALTERATION, SEE DESCRIPTION. B. STOMACH, BIOPSY: - MILD CHRONIC GASTRITIS. C. ESOPHAGUS, DISTAL, BIOPSY: - EOSINOPHILIC ESOPHAGITIS, GREATER THAN 100 EOSINOPHILS/ HPF. D. ESOPHAGUS, MID, BIOPSY: - EOSINOPHILIC ESOPHAGITIS, UP TO 80 EOSINOPHILS/HPF. 10/03/2016 10:44 AM [facility] Clinical History The patient is a 16-year-old boy with a history of eosinophilic esophagitis who underwent upper endoscopy. The findings were linear furrows and significant erosions and erythema in the duodenal bulb. 10/03/2016 10:44 AM [facility] Gross Description The specimens are received fixed in formalin in four containers for gross and microscopic examination. All containers are labeled with the patient's name, Lavelle Michael. Specimen A, duodenal biopsy consists of four soft, orange-santizo tissue fragments, 2 mm to 4 mm in greatest dimension. The specimen is submitted in toto as A1. Specimen B, stomach biopsy consists of two soft, yellow-santizo tissue fragments, 1 mm and 5 mm in greatest dimension. The specimen is submitted in toto as B1. Specimen C, distal esophageal biopsy consists of two soft, pink-allen tissue fragments, 2 mm and 3 mm in greatest dimension. The specimen is submitted in toto as C1. Specimen D, mid esophageal biopsy consists of three soft, pink-allen tissue fragments, 1 mm to 2 mm in greatest dimension. The specimen is submitted in toto as D1. (ED/dak) 10/03/2016 10:44 AM [facility] Microscopic Description 12 H&E. Sections of the duodenal biopsy show fragments of duodenal mucosa with largely preserved villous architecture. There is an increase in eosinophils within the lamina propria. Focally, the villous and crypt epithelium demonstrate reactive nuclear changes. No significant involvement of the epithelium by neutrophils or eosinophils is identified. Sections of the stomach biopsy show fragments of antral and fundic-type gastric mucosa with mild lamina propria expansion by a mixed inflammatory infiltrate comprising lymphocytes, plasma cells, and eosinophils. No significant acute inflammation is identified. Sections of both the distal and mid esophageal biopsies show variable strips of stratified squamous mucosa with marked spongiosis, basal cell hyperplasia, and elongation of the lamina propria papillae. There is an increase in intraepithelial eosinophils with focal eosinophilic microabscess formation; there are greater than 100 eosinophils per high-power field (400x magnification) in the distal esophageal biopsy and up to 80 eosinophils per high-power field in the mid esophageal biopsy. (SES/na) 10/03/2016 10:44 AM [facility] Disclaimer The performance characteristics of all immunohistochemical and indirect immunofluorescence stains (if any) cited in this report were determined by the Histopathology Laboratory of [facility]. Some of these tests were developed by our own laboratory and have not been cleared or approved by the US Food and Drug Administration (FDA). The FDA does not require this test to go through premarket FDA review. These tests are used for clinical purposes. They should not be regarded as investigational or for research. This laboratory is certified under the Clinical Laboratory Improvement Amendments (CLIA) as qualified to perform high complexity clinical laboratory testing. This case has been personally reviewed and interpreted by the attending (teaching) pathologist. 10/03/2016 10:44 AM CDT [facility] Embedded Images 10/03/2016 10:44 AM CDT [facility] Pathology/Cytology ESOPHAGEAL BIOPSY SPECIMEN / Unknown 10/01/2016 1:41 PM CDT 10/01/2016 2:18 PM CDT Miscellaneous samples (specimen) BIOPSY OF STOMACH / Unknown 10/01/2016 1:41 PM CDT 10/01/2016 2:18 PM CDT Miscellaneous samples (specimen) ESOPHAGEAL BIOPSY SPECIMEN / Unknown 10/01/2016 1:41 PM CDT 10/01/2016 2:18 PM CDT Miscellaneous samples (specimen) ESOPHAGEAL BIOPSY SPECIMEN / Unknown 10/01/2016 1:41 PM CDT 10/01/2016 2:18 PM CDT Kenzie Cobb MD LAB - PATHOLOGY/CYTO LOGY ORDERABLES Performing Organization Address City/State/[facility] Co de Phone Number [facility] [place] [address] * EGD (10/01/2016 10:23 AM CDT) Report Endoscopy POC _ Patient Name: Lavelle Michael ? Date of : 2000 ?Admit Type: Outpatient Age: 16 ? Gender: Male Attending MD: Kenzie Cobb , ?Order #: [id number] _ Procedure: ? Upper GI endoscopy Indications: [...] Procedure Code(s): ? --- Professional --- ? 63177, Esophagogastroduod enoscopy, flexible, transoral; with biopsy, ? single or multiple ? --- Technical --- ? 08080, Esophagogastroduod enoscopy, flexible, transoral; with biopsy, ? single or multiple Diagnosis Code(s): ? --- Professional --- ? K29.80, Duodenitis without bleeding ? K20.0, Eosinophilic esophagitis ? --- Technical --- ? K29.80, Duodenitis without bleeding ? K20.0, Eosinophilic esophagitis CPT copyright 2015 [employer]. All rights reserved. The codes documented in this report are preliminary and upon health information coder review may be revised to meet current compliance requirements. Dr. eKnzie Cobb Kenzie Cobb, 10/01/2016 2:12:40 PM This report has been signed electronically. Number of Addenda: 0 Note Initiated On: 09/28/2016 10:23 AM Procedure Date: ? 10/01/2016 10:23:00 AM ? This report has been signed electronically. [facility] 10/01/2016 10:2 3 AM CDT Kenzie Cobb MD GI PROCEDURE ORDERAB LES [facility] [address] [facility] [place] [address] documented in this encounter Visit Diagnoses Diagnosis EE (eosinophilic esophagitis) and Eosinophilic Enterocolitis Eosinophilic esophagitis documented in this encounter Administered Medications Inactive Administered Medications - up to 3 most recent administrations Medication Order MAR Action Action Date Dose Rate Site isolyte-S pH 7.4 infusion 100 mL/hr, Intravenous, POST-OP CONTINUOUS, Starting on Sat10/01/16 at 1430, Until Sat10/01/16 at 1605, PACU Current Rate 10/01/2016 2:10 PM CDT 100 mL/hr 100 mL/hr documented in this encounter Active and Recently Administered Medications Times are shown in CDT. Scheduled Medication Order 09/29/2016 09/30/2016 10/01/2016 diphenhydrAMINE (BENADRYL) injection 25 mg 25 mg, Intravenous, POST-OP MULTIPLE, Starting on Sat10/01/16 at 1415, Until Sat10/01/16 at 1605, Max dose: 50 mg, PACU Continuous Medication Order 09/29/2016 09/30/2016 10/01/2016 isolyte-S pH 7.4 infusion 100 mL/hr, Intravenous, POST-OP CONTINUOUS, Starting on Sat10/01/16 at 1430, Until Sat10/01/16 at 1605, PACU 1410 (Current Rate - Provider: Zaira Rojo RN)1445 (Stopped - Provider: Zaira Rojo RN) documented in this encounter Care Teams Washroom Attendant Relationship Specialty Start Date End Date Laine Sharp MD [address] [id number] PCP - General Pediatrics 12/31/13 documented as of this encounter
--- OUTSIDE RECORDS SUMMARY | 2024-03-21 22:03 | XMS_ITS | Encounter Summary ---
Author Organization [facility] Address [address] [place] [address] Care Team Providers Care Video Software Engineer Name Role Phone Laine Sharp MD Primary Care Provider Reason for Visit * Auth/Cert Specialty Diagnoses / Procedures Referred By Contlan t Referred To Contact Diagnoses Abdominal pain, unspecified location Abdominal pain, unspecified location Procedures COLONOSCOPY BIOPSY Referral ID Status Reason Start Date Expiration Date Visits Re quested Visits Authorized [id number] 1 1 Encounter Details Date Type Department Care Team (Late Contact Info) Description 11/16/2016 11:57 AM CDT Anesthesia Event [facility] - Endoscopy [address] [place] [address] Willie Levi MD [address] [id number] Anthony Chau Anes Asst [address] [place] [id number] Anesthesia Record Procedure Summary Procedure Name Responsible Anesthesiologist Anesthesia Start Time Anesthesia Stop Time COLONOSCOPY BIOPSY Willie Levi MD 11/16/16 1157 11/16/16 1227 Events Date Time Event Comment 11/16/2016 1141 1157 An Start 1157 An Start Data 1204 PT Reassessment 1204 An Induction 1204 Time Out Anesthesia part icipated in timeout at the time documented in the record by nursing 1220 An Emergence 1221 an stop data 1221 Electnc Sig 1227 An Stop Meds Name Total fentaNYL 100 mcg/2mL injection 25 mcg midazolam 2 mg/2mL injection 2 mg propofol 200mg/20mL injection 80 mg lidocaine (MPF) 2% injection 60 mg propofol 500 mg/50mL injection 0 mL isolyte-S pH 7.4 infusion 700 mL * Agents Name Insp. N2O * Blood No blood administrations on file. Lines, Drains, and Airways Type Details Placement Removal Peripheral IV Date: 11/16/16; Time: 1112; Orientation: Right; Placed By: Roge Munoz RN; Tolerance: Well 11/16/16 1112 by Edel Munoz RN 11/16/16 1315 by Leta Herrera RN Procedural Site (Incision) 11/16/16; 1150; Rectum; 11/16/16; 19311/16/16 1150 by Savanna Amador RN 11/16/16 1939 by Generic, Auto Release documented in this [...] No 10/01/2016 documented as of this encounter Progress Notes * Willie Levi MD - 11/16/2016 1:36 PM CDT ANESTHESIA POSTPROCEDURE EVALUATION Lavelle Michael is a 16 y.o. male Temp: 97.4 ??F Pulse: 64 Resp: 16 BP: 111/68 SpO2: 96 % Pain Rating Score #1: 0 Anesthesia Type: MAC Mental status: sufficiently recovered from acute administration of anesthesia to participate in theevaluation. Level of consciousness: awake No numbness, tingling or visual disturbances present. General appearance: well-appearing Respiratory function: natural airway. Cardiac: stable Pain: comfortable/acceptable PONV: None Postop hydration: adequate. Patient may be released from anesthesia care. Perioperative Complications: No value filed. ASA/AQI Tracking Events: No value filed. documented in this encounter Consult Notes * Willie Levi MD - 11/16/2016 11:39 AM CDT ANESTHESIA PREOPERATIVE EVALUATION NOTE Procedure: COLONOSCOPY BIOPSY Vitals: Patient Vitals for the past 24 hrs (Last 5 readings): BP Temp Pulse Resp SpO2 Height Weight 11/16/16 1054 128/83 98.2 ??F 80 16 96 % - - 11/16/16 1045 - - - - - 1.714 m (5' 7.48 ) 88 kg (194 lb 0.1 oz) ANESTHESIA PRE-EVALUATION NOTE Physical Exam: Orientation: Orientation X3 Airway/Mallampati Score: I Mouth Opening Distance: 3 fingerwidths Neck ROM: full Teeth: normal Heart: regular rate rhythm Lungs: normal Abdomen Exam: normal Review of Systems: History of anesthetic complications: No ANESTHESIA PLAN SECTION ASA Score: 2 NPO Status: No solids since midnight and No liquids within 2 hours Anesthesia Plan: MAC Planned Induction: intravenous Planned Postop Destination: PACU Intended Admin of Opioids: Yes Anesthetic plan was discussed with: family and mother and father The patient's procedural Anesthetic Plan with discussed with the claims assistant. BMI, Height, Weight Tobacco History Estimated body mass index is 29.95 kg/(m^2) as calculated from the following: Height as of this encounter: 1.714 m (5' 7.48 ). Weight as of this encounter: 88 kg (194 lb 0.1 oz). History Smoking Status ??? Never Smoker Smokeless Tobacco ??? Never Used Alcohol History Drug History History Alcohol Use No History Drug Use No Outpatient Medications: Inpatient Medications: No current outpatient prescriptions on file. @[email or web address]@ Allergies: Allergies Allergen Reactions ??? Other CLEAR TAPE CAUSED IRRITATION. PLEASE USE CLOTH TAPE Problem List: Patient Active Problem List Diagnosis Date Noted ??? Abnormal weight loss 11/16/2016 Priority: Not Prioritized ??? Eczema 02/12/2012 [...] BIOPSY ??? Orchiopexy 11/27/2002 -Dr Beaver ??? [place] EGD FLEX TRANSORAL W BX SNGL OR MULT NOV 2011 dx with EE Lab Tests: None None None None documented in this encounter Miscellaneous Notes * Addendum Note - Willie Levi MD - 11/19/2016 12:30 PM CDT Addendum created 11/19/16 1230 by Willie Levi MD Anesthesia Attestations filed * Anesthesia Transfer of Care - Anthony Sauer Anes Asst - 11/16/2016 12:27 PM CDT ANESTHESIA TRANSFER OF CARE NOTE Today's Date: 11/16/2016 Date of : 2000 Patient: Lavelle Michael Pre-op Diagnosis: Abdominal pain, unspecified location [R10.9] Allergies: Allergies Allergen Reactions ??? Other CLEAR TAPE CAUSED IRRITATION. PLEASE USE CLOTH TAPE Procedure(s): COLONOSCOPY BIOPSY Postop Diagnosis: as referenced in the surgical operative report Postop Pain: Adequate Analgesia Transport Airway: supplemental O2 and spontaneous respirations Transport Monitoring: heart rate and continuous pulse [...] report from the receiving PACUteam. Anesthesiologist: Luh Valente documented in this encounter Plan of Treatment Not on file documented as of this encounter Visit Diagnoses Not on filedocumented in this encounter Administered Medications Inactive Administered Medications - up to 3 most recent administrations Medication Order MAR Action Action Date Dose Rate Site fentaNYL (PF) (SUBLIMAZE) injection PRN, Starting on Sat11/16/16 at 1201, Until Sat11/16/16 at 1227, Anesthesia Intra-op $ Given 11/16/2016 12:01 PM CDT 25 mcg isolyte-S pH 7.4 infusion CONTINUOUS PRN, Starting on Sat11/16/16 at 1157, Until Sat11/16/16 at 1227, Anesthesia Intra-op $ New Bag/Syringe 11/16/2016 11:57 AM CDT lidocaine (XYLOCAINE MPF) 2 % injection PRN, Starting on Sat11/16/16 at 1201, Until Sat11/16/16 at 1227, Anesthesia Intra-op $ Given 11/16/2016 12:01 PM CDT 60 mg midazolam (VERSED) injection PRN, Starting on Sat11/16/16 at 1157, Until Sat11/16/16 at 1227, Anesthesia Intra-op $ Given 11/16/2016 11:57 AM CDT 2 mg propofol (DIPRIVAN) infusion CONTINUOUS PRN, Starting on Sat11/16/16 at 1157, Until Sat11/16/16 at 1227, Anesthesia Intra-op $ New Bag/Syringe 11/16/2016 11:57 AM CDT 300 mcg/kg/min 158.4 mL/hr propofol (DIPRIVAN) injection PRN, Starting on Sat11/16/16 at 1201, Until Sat11/16/16 at 1227, Anesthesia Intra-op $ Given 11/16/2016 12:03 PM CDT 30 mg $ Given 11/16/2016 12:01 PM CDT 50 mg documented in this encounter Care Teams Video Software Engineer Relationship Specialty Start Date End Date Laine Sharp MD [address] [place] [phone] PCP - General Pediatrics 12/31/13 documented as of this encounter
--- OUTSIDE RECORDS SUMMARY | 2024-03-21 22:03 | XMS_ITS | Encounter Summary ---
Author Organization [facility] Address [address] [facility] [place] [address] Care Team Providers Care Manager Strategic Sourcing Name Role Phone Laine Sharp MD Primary Care Provider [phone] Reason for Visit * Reason Onset Date Comments Question 02/24/2016 Encounter Details Date Type Department Care Team (Late st Contact Info) Description 02/24/2016 Telephone [facility] - [address] [place] [address] Kenzie Cobb MD [facility] [place] [address] Question Social History Tobacco Use Types Packs/Day Years [...] encounter Miscellaneous Notes * Telephone Encounter - Merary Fountain RN - 02/28/2016 8:14 AM VENDOR QUALITY SUPERVISOR Left another message on Rebecca's identified VM from [employer], instructed to call if still had questions. Closing encounter. OR QUALITY SUPERVISOR * Telephone Encounter - Tiffany Monzon RN - 02/27/2016 11:06 AM VENDOR QUALITY SUPERVISOR Left message for Rebecca to call the office. OR QUALITY SUPERVISOR * Telephone Encounter - Tiffany Monzon RN - 02/24/2016 1:31 PM CST Left message for Rebecca to call the office. We have not seen the patient since 02/17/2015. OR QUALITY SUPERVISOR * Telephone Encounter - Lissette Ya - 02/24/2016 1:24 PM CST Rebecca from [facility] requesting call back [phone] OR QUALITY SUPERVISOR documented in this encounter Plan of Treatment Not on file documented as of this encounter Visit Diagnoses Not on filedocumented in this encounter Care Teams Manager Strategic Sourcing Relationship Specialty Start Date End Date Laine Sharp MD [address] [phone] PCP - General Pediatrics 12/31/13 documented as of this encounter
--- OUTSIDE RECORDS SUMMARY | 2024-03-21 22:03 | XMS_ITS | Encounter Summary ---
Author Organization [facility] Address [address] [facility] [place] [address] Care Team Providers Care Weather Teacher Name Role Phone Laine Sharp MD Primary Care Provider [phone] Reason for Visit * Reason Onset Date Comments Question 11/14/2016 Encounter Details Date Type Department Care Team (Late st Contact Info) Description 11/14/2016 Telephone [facility] [address] [place] [address] Kenzie Cobb MD [facility] [place] [address] Question Social History Tobacco Use Types Packs/Day [...] * Telephone Encounter - Kiley Silva - 11/15/2016 12:21 PM CDT Notified endo * Telephone Encounter - Kenzie Cobb MD - 11/15/2016 11:57 AM CDT Should only be a colon H/o Eosinophilic esophagitis and eosinophilic gastroenteropathy, eosinophilic colitis. He actually had reassuring colonoscopies and in 02/2013 and 01/2014 so thought that lower tract disease had somehow resolved. Reports he is asymptomatic However Surveillance EGD in September 2016 showed signficant EoE but also ulcers in the bulb of his duodenum (biopsies were not that bad, but I must not have biopsies on the ulcers itself) Planned for colonoscopy for surveillance (?developed Crohn's) in light of upper tract findings and as pt will be going to college soon. * Telephone Encounter - Kiley Silva - 11/15/2016 8:44 AM CDT Endo wanted to clarify procedure for 11/16. Should it be Egd/Colon? * Telephone Encounter - Lissette Ya - 11/14/2016 11:29 AM CDT Mom reports never receiving EGD/Colon prep letter. Prep e-mail to [email or web address] per [email or web address] request documented in this encounter Plan of Treatment Not on file documented as of this encounter Visit Diagnoses Not on filedocumented in this encounter Care Teams Weather Teacher Relationship Specialty Start Date End Date Laine Sharp MD [address] [phone] PCP - General Pediatrics 12/31/13 documented as of this encounter
--- OUTSIDE RECORDS SUMMARY | 2024-03-21 22:03 | XMS_ITS | Encounter Summary ---
Author Organization [facility] Address [address] [facility] [place] [address] Care Team Providers Care Administrative Support Specialist Name Role Phone Laine Sharp MD Primary Care Provider [phone] Reason for Visit * Reason Onset Date Comments Pain Abdominal 03/03/2019 Encounter Details Date Type Department Care Team (Late st Contact Info) Description 03/03/2019 Telephone [facility] - [address] [place] [address] Domitila Newby MD [address] [place] [phone] Pain Abdominal Social History Tobacco Use Types Packs/Day Years [...] encounter Miscellaneous Notes * Telephone Encounter - Domitila Newby MD - 03/03/2019 9:48 PM CST 18 year old male with EOE, eosinophilic GI disorder, last EGD showed 100 Eos, normal colon on 2017 used to be on Nexium. He is at [facility] ED with lower abdominal, non radiating pain, associated with nausea, no fever, vomiting, diarrhea. He is off medication. Symptoms improved with Zofran Labs: Per ED CBC, CMP within normal Lipase 186 (3X upper limit of normal) CT abdomen: GE picture Likely infection in nature GE, Patient doesn't meet criteria for pancreatitis ( normal imaging, atypical pain location) Patient needs follow up for eosinophilic GI disorder Restart Nexium 40 mg Plan on GI clinic FU Patient cell phone [phone] Return to ED incase of dysphagia, food impaction, persistence vomiting, worsening abdomina pain. CING COORDINATOR documented in this encounter Plan of Treatment Not on file documented as of this encounter Visit Diagnoses Not on filedocumented in this encounter Care Teams Administrative Support Specialist Relationship Specialty Start Date End Date Laine Sharp MD [address] [phone] PCP - General Pediatrics 12/31/13 documented as of this encounter
--- OUTSIDE RECORDS SUMMARY | 2024-03-21 22:03 | XMS_ITS | Encounter Summary ---
Author Organization [facility] Address [address] [facility] [place] [address] Care Team Providers Care Auto Painter Helper Name Role Phone Laine Sharp MD Primary Care Provider [phone] Reason for Visit * Auth/Cert Specialty Diagnoses / Procedures Referred By Leonard t Referred To Contact Diagnoses Abdominal pain, unspecified location Abdominal pain, unspecified location Procedures COLONOSCOPY BIOPSY Referral ID Status Reason Start Date Expiration Date Visits Re quested Visits Authorized [id number] 1 1 Encounter Details Date Type Department Care Team (Late Contact Info) Description 11/16/2016 11:30 AM CDT - 11/16/2016 12:30 PM CDT Surgery [facility] Endoscopy [address] [place] [id number] Stuart Miller MD [address] [place] [id number] COLONOSCOPY BIOPSY Surgery Details Date/Time Status Location OR Service Patient Class Case Class Case Type Trauma Case? 11/16/2016 11:30 AM Posted [facility] END[facility] Endo 03 Gastroenterology Surgery Day Care Elective > 5 days Panel 1 Procedure LRB Anes Op Region Wound Class Comments COLONOSCOPY BIOPSY General Clean Conta minated Surgeon Surgeon Role Service Panel Stuart Miller MD Primary Gastroenterology 1 documented in this encounter Social [...] Sign Reading Time Taken Comments Blood Pressure 111/68 11/16/2016 1:15 PM CDT Pulse 64 11/16/2016 1:15 PM CDT Temperature 36.3 ??C (97.4 ??F) 11/16/2016 12:25 PM C DT Respiratory Rate 16 11/16/2016 1:15 PM CDT Oxygen Saturation 96% 11/16/2016 1:15 PM CDT Inhaled Oxygen Concentration - - Weight 88 kg (194 lb 0.1 oz) 11/16/2016 10:45 AM CDT Height 171.4 cm (5' 7.48 ) 11/16/2016 10:45 AM C DT Body Mass Index 29.95 11/16/2016 10:45 AM CDT Body Mass Index Percentile 95.87% 11/16/2016 10: 45 AM CDT Growth Chart: [facility] (Boys, 2-2 0 Years) documented in this [...] as of this encounter Discharge Summaries * Stuart Miller MD - 11/16/2016 12:36 PM CDT Images from the original note were not included. SAME DAY SURGERY DISCHARGE SUMMARY Patient ID: Lavelle Michael [id number] 16 y.o. 2000 Discharge Date: 11/16/2016 Discharge Diagnoses: 1. Eosinophilic colitis 2. Abdominal pain, unspecified location Discharge Condition: Stable Discharge Medication: Please see Discharge Instructions for a complete list of medications. Discharge Procedure Orders Diet instructions Start light diet today (i.e [...] to cook for the next 24 hours. Follow up with provider Order Specific Question Answer Comments Follow Up Instructions: GI office will call in 1-2 weeks with biopsy results. Follow up to be determined after results Recovering after Colonoscopy -- Lavelle may have some abdominal cramping or bloating. This is caused by the air that was insertedduring the colonoscopy, and should go away shortly after your procedure. -- Lavelle may notice small amounts of blood if he had polyps removed or tissue samples taken for biopsy. Follow-Up: GI will call with final results and plans. Stuart Miller MD 11/16/2016 12:36 PM documented in this encounter Medications at Time of Discharge Medication Sig Dispensed Refills Start Date End Date cetirizine (ZYRTEC) 10 MG tablet Take 1 Tab by mouth at bedtime 30 Tab 6 10/17/2016 03/12/2019 fluticasone hfa 220 (FLOVENT HFA) 220 MCG/ACT inhaler Take 2 Puffs by mouth 2 times daily take 2 puffs orally while holding her breath 1 minute apart. Swallow. Take a sip of water and spit. 1 Inhaler 6 10/17/2016 03/12/2019 mometasone (ELOCON) 0.1 % ointmentIndications:Ecz bird, unspecified type Apply to affected area once daily as needed (for red, itchy skin) 45 g 6 10/17/2016 03/12/2019 omeprazole (PRILOSEC) 20 MG capsule Take 1 Cap by mouth 2 times daily,before breakfast and supper 60 Cap 3 10/01/2016 03/12/2019 documented as of this encounter H&P Notes * Stuart Miller MD - 11/16/2016 11:38 AM CDT Surgical History and Physical Today's Date: 11/16/2016 Lavelle Michael 16 y.o. male Date of Service: 11/16/2016 Planned Procedure: colonoscopy Indication for Procedure: wt loss, h/o EoE and eosinophilia History of Present Illness See Gi notes Prescriptions Prior to Admission Medication Sig Dispense Refill ??? fluticasone hfa 220 (FLOVENT HFA) 220 MCG/ACT inhaler Take 2 Puffs by mouth 2 times daily take 2 puffs orally while holding her breath 1 minute apart. Swallow. Take a sip of water and spit. 1 Inhaler 6 ??? omeprazole (PRILOSEC) 20 MG capsule Take 1 Cap by mouth 2 times daily,before breakfast and supper 60 Cap 3 ??? mometasone (ELOCON) 0.1 % ointment Apply to affected area once daily as needed (for red, itchy skin) 45 g 6 ??? cetirizine (ZYRTEC) 10 MG tablet Take 1 Tab by mouth at bedtime 30 Tab 6 Allergies Allergen Reactions ??? Other CLEAR TAPE CAUSED IRRITATION. PLEASE USE CLOTH TAPE Review of Systems No fever Exam Vitals: 11/16/16 1045 11/16/16 1054 BP: 128/83 Pulse: 80 Resp: 16 Temp: 98.2 ??F SpO2: 96% Weight: 88 kg (194 lb 0.1 oz) Patient is alert, no distress. No rash, no jaundice. DIANE EOMI. Ears normal, nose clear. Head atraumatic. Neck supple, no adenopathy. Mouth normal, no exudate. . Well perfused, equal pulses. Abdomen soft, non-tender, no masses, no organomegaly. Extremities no clubbing, cyanosis, or edema. Normal tone, Grossly intact cranial nerves. Data Recent Labs Component Name 10/01/16 1400 WBC 6.6 HGB 14.6 HCT 41.4 PLTCOUNT 252 Recent Labs Component Name 10/01/16 1400 SODIUM 140 POTASSIUM 4.0 CHLORIDE 106 CO2 24 BUN 10.5 CREATININE 0.89 GLUCOSE 93 CALCIUM 8.83* Assessment and Plan: wt loss, h/o eosinophilia, h/o EoE: colonoscopy. Risks, benefits and alternatives discussed with the patient, questions answered. Plan to perform above noted procedure. Stuart Miller MD documented in this encounter Plan of Treatment Not on file documented as of this encounter Procedures Procedure Name Priority Date/Time Associated Diagnosis Comments PATHOLOGY TISSUE EXAM (STL) STAT 11/16/2016 12:05 PM CDT Abdominal pain, unspecified location COLONOSCOPY BIOPSY (ANY METHOD) 11/16/2016 11:47 AM CDT Abdominal pain, unspecified location ENDOSCOPY, COLON, DIAGNOSTIC Routine 11/16/2016 6:37 AM CDT Eosinophilic colitis documented in this encounter Results * GROSS + MICRO EXAM (STL) (11/16/2016 12:05 PM CDT) Case Report Surgical Pathology Report ? Case: [id number] ? Authorizing Provider: ??Stuart Miller MD ? Collected: ? 11/16/2016 12:05 PM ? Ordering Location: ? ENDOSCOPY SERVICES ?Received: ?11/16/2016 01:49 PM ? Pathologist: ? Ryan Wei MD ? Specimens: ?? A) - Polyp Rectal ? B) - Ileum Biopsy ? C) - Colon Ascending Biopsy ? D) - Colon Descending Biopsy ? E) - Rectal Biopsy ? 11/30/2016 5:10 AM [facility] Final Diagnosis A. RECTUM, RECTAL POLYP, BIOPSY: -BENIGN POLYP WITH FEATURES OF MUCOSAL PROLAPSE POLYP. -SEE MICROSCOPIC DESCRIPTION. B. ILEUM, BIOPSY: - NO PATHOLOGIC DIAGNOSIS C. COLON, ASCENDING, BIOPSY: - MILD HISTOLOGIC ALTERATION. - SEE MICROSCOPIC DESCRIPTION D. COLON, DESCENDING, BIOPSY: - NO PATHOLOGIC DIAGNOSIS E. RECTUM, BIOPSY: - NO PATHOLOGIC DIAGNOSIS 11/30/2016 5:10 AM [facility] Clinical History The patient is a 16-year-old boy with abdominal pain and eosinophilia who underwent colonoscopy. The finding was a small rectal polyp. 11/30/2016 5:10 AM [facility] Gross Description The specimens are received fixed in formalin in five containers for gross and microscopic examination. All containers are labeled with the patient's name, Lavelle Michael. Specimen A, rectal polyp, consists of a 5 x 3 x 2 mm soft, yellow-santizo tissue fragment submitted in toto as A1. Specimen B, ileum biopsy, consists of an 8 mm soft, yellow-santizo tissue fragment submitted in toto as B1. Specimen C, ascending colon bio [sic], consists of four soft, yellow-santizo tissue fragments, 3 mm to 6 mm in greatest dimension. The specimen is submitted in toto as C1. Specimen D, descending colon bi [sic], consists of four soft, yellow-santizo tissue fragments, 4 mm to 9 mm in greatest dimension. The specimen is submitted in toto as D1. Specimen E, rectal biopsy, consists of five soft, yellow-santizo tissue fragments, 4 mm to 10 mm in greatest dimension. The specimen is submitted in toto as E1. (OEM/ns) 11/30/2016 5:10 AM [facility] Microscopic Description 20 H&E, 1 SMA (immunohistochemistry ) Sections of the rectal polyp show large intestinal mucosa with serrated and hyperplastic crypts with underlying strands of smooth muscle in the lamina propria. Mild chronic inflammation and focal acute inflammation is seen. Sections of the ileum biopsy show fragments of small intestinal mucosa with preserved villous architecture. There are focal lymphoid aggregates harboring secondary follicle (germinal center) formation. Sections of the ascending colon show fragments of large intestinal mucosa with significant number of eosinophils in the lamina propria and rarely infiltration of the surface epithelium and crypt epithelium with eosinophil. Sections of the descending colon and rectal biopsy show unremarkable large intestinal mucosa. (NK/MAG/ns) 11/30/2016 5:10 AM [facility] Disclaimer The performance characteristics of all immunohistochemical and indirect immunofluorescence stains (if any) cited in this report were determined by the [facility] of [facility]. Some of these tests were developed by [...] and interpreted by the attending (teaching) pathologist. 11/30/2016 5:10 AM CDT [facility] Embedded Images 11/30/2016 5:10 AM CDT [facility] Pathology/Cytology RECTAL POLYP / Unknown 11/16/2016 12:05 PM CDT 11/16/2016 1:49 PM CDT Miscellaneous samples (specimen) BIOPSY OF ILEUM / Unknown 11/16/2016 12:13 PM CDT 11/16/2016 1:49 PM CDT Miscellaneous samples (specimen) COLONIC BIOPSY SPECIMEN / Unknown 11/16/2016 12:13 PM CDT 11/16/2016 1:49 PM CDT Miscellaneous samples (specimen) COLONIC BIOPSY SPECIMEN / Unknown 11/16/2016 12:13 PM CDT 11/16/2016 1:49 PM CDT Miscellaneous samples (specimen) RECTAL BIOPSY SPECIMEN / Unknown 11/16/2016 12:13 PM CDT 11/16/2016 1:49 PM CDT Stuart Miller MD LAB - PATHOLOGY/CYT OLOGY ORDERABLES Performing Organization Address [facility]/State/[facility] Co de Phone Number [facility] [address] [place] [address] * ENDOSCOPY, COLON, DIAGNOSTIC (11/16/2016 6:37 AM CDT) Report Endoscopy POC _ Patient Name: Lavelle Michael ? Date of : 2000 ?Admit Type: Outpatient Age: 16 ? Gender: Male Attending MD: Stuart Miller MD ??Order #: [id number] _ Procedure: ? Colonoscopy Indications: ? Suspected [...] Procedure Code(s): ? --- Professional --- ? 59886, Colonoscopy, flexible; with biopsy, single or multiple ? --- Technical --- ? 90391, Colonoscopy, flexible; with biopsy, single or multiple Diagnosis Code(s): ? --- Professional --- ? K62.1, Rectal polyp ? --- Technical --- ? K62.1, Rectal polyp CPT copyright 2015 [employer]. All rights reserved. The codes documented in this report are preliminary and upon oil driller review may be revised to meet current compliance requirements. Dr. Stuart Miller Stuart Miller MD 11/16/2016 1:19:02 PM This report has been signed electronically. Number of Addenda: 0 Note Initiated On: 11/16/2016 6:37 AM Procedure Date: ? 11/16/2016 6:37:07 AM ? This report has been signed electronically. [facility] 11/16/2016 6:37 AM CDT Kenzie Cobb MD GI PROCEDURE ORDERAB LES [facility] [address] [place] [place] [address] documented in this encounter Visit Diagnoses Diagnosis Eosinophilic colitis Abdominal pain, unspecified location Abnormal weight loss Loss of weight Eosinophilia Rectal polyp Anal and rectal polyp Abdominal pain, unspecified location documented in this encounter Administered Medications Inactive Administered Medications - up to 3 most recent administrations Medication Order MAR Action Action Date Dose Rate Site isolyte-S pH 7.4 infusion 120 mL/hr, Intravenous, POST-OP CONTINUOUS, Starting on Sat11/16/16 at 1230, Until Sat11/16/16 at 1444, PACU Current Rate 11/16/2016 12:28 PM CDT 120 mL/hr 120 mL/hr documented in this encounter Active and Recently Administered Medications Times are shown in CDT. Scheduled Medication Order 11/14/2016 11/15/2016 11/16/2016 diphenhydrAMINE (BENADRYL) injection 25 mg 25 mg, Intravenous, POST-OP MULTIPLE, Starting on Sat11/16/16 at 1228, Until Sat11/16/16 at 1444, Max dose: 50 mg, PACU Continuous Medication Order 11/14/2016 11/15/2016 11/16/2016 isolyte-S pH 7.4 infusion 120 mL/hr, Intravenous, POST-OP CONTINUOUS, Starting on Sat11/16/16 at 1230, Until Sat11/16/16 at 1444, PACU 1228 (Current Rate - Provider: Leta Herrera RN - Comment: started per anesthesia) documented in this encounter Care Teams Auto Painter Helper Relationship Specialty Start Date End Date Laine Sharp MD [address] [id number] PCP - General Pediatrics 12/31/13 documented as of this encounter
--- OUTSIDE RECORDS SUMMARY | 2024-03-21 22:03 | XMS_ITS | Encounter Summary ---
Author Organization [facility] Address [address] [address] Care Team Providers Care Oil Exploration Engineer Name Role Phone Lanny Hewitt MD Primary Care Provider Laine Sharp MD Primary Care Provider Reason for Visit * Reason Onset Date Comments Question 12/23/2012 Encounter Details Date Type Department Care Team (Late st Contact Info) Description 12/23/2012 Telephone [facility] Pediatrics - [address] [place] [address] Kenzie Cobb MD [address] [place] [phone] Question Social History Tobacco Use Types Packs/Day [...] encounter Miscellaneous Notes * Telephone Encounter - Damaris Lopez RN - 12/23/2012 10:38 AM CDT Letter written for [facility] school accommodation with diagnosis. Dr. Cobb to sign then letter to be emailed to dad at [email or web address] Original will be mailed home. * Telephone Encounter - Ariana Kelly - 12/23/2012 10:27 AM CDT Dad had a few questions regarding patient. documented in this encounter Plan of Treatment Not on file documented as of this encounter Visit Diagnoses Not on filedocumented in this encounter Care Teams Oil Exploration Engineer Relationship Specialty Start Date End Date Lanny Hewitt MD PCP - General Pediatrics 11/09/11 12/30/13 Laine Sharp MD [address] [id number] PCP - General Pediatrics 12/31/13 documented as of this encounter
--- OUTSIDE RECORDS SUMMARY | 2024-03-21 22:03 | XMS_ITS | Encounter Summary ---
Author Organization [facility] Address [address] [facility] [place] [address] Care Team Providers Care Cardiograph Operator Name Role Phone Laine Sharp MD Primary Care Provider [phone] Reason for Visit * Reason Onset Date Comments Opened In Error 02/25/2015 Encounter Details Date Type Department Care Team (Late st Contact Info) Description 02/25/2015 Telephone [facility] Pediatrics - [address] [place] [address] Kenzie Cobb MD [facility] [place] [address] Opened In Error Social History Tobacco Use Types Packs/Day Years Used Date Smoking Tobacco: Never Smokeless Tobacco: Never Alcohol Use Standard Drinks/Week Comments No 0 (1 standard drink = 0.6 oz pur e alcohol) Sex and Gender Information Value Date Recorded Sex Assigned at Not on file Gender Identity Not on file Sexual Orientation Not on file documented as of this encounter Plan of Treatment Not on file documented as of this encounter Visit Diagnoses Not on filedocumented in this encounter Care Teams Cardiograph Operator Relationship Specialty Start Date End Date Laine Sharp MD [address] [facility] [address] [place] [id number] PCP - General Pediatrics 12/31/13 documented as of this encounter
--- OUTSIDE RECORDS SUMMARY | 2024-03-21 22:03 | XMS_ITS | Encounter Summary ---
Author Organization [facility] Address [address] [facility] [place] [address] Care Team Providers Care Imaging Tech Name Role Phone Lanny Hewitt MD Primary Care Provider [phone] Reason for Visit * Reason Onset Date Comments Scheduling 01/29/2013 Results 02/23/2013 Encounter Details Date Type Department Care Team (Late st Contact Info) Description 01/29/2013 Telephone [facility] Pediatrics - GI [facility] [place] [address] Kenzie Cobb MD [facility] [place] [address] Scheduling; Results Social History Tobacco Use Types Packs/Day [...] encounter Miscellaneous Notes * Telephone Encounter - Kenzie Cobb MD - 02/23/2013 11:19 AM CST Talked to Lavelle's mom about biopsy results. No eos reported in colon! Eosinophlic esohpagitis still present. COntinue Flovent - reiterated improtance of aking daily I let mom know about sister's results as well. See separate encounter. H COUNSELOR * Telephone Encounter - Kiley Silva - 01/29/2013 4:01 PM CST Egd/Colon rescheduled for 02/20/13 at 10:[address] Cobb H COUNSELOR documented in this encounter Plan of Treatment Not on file documented as of this encounter Visit Diagnoses Not on filedocumented in this encounter Care Teams Imaging Tech Relationship Specialty Start Date End Date Lanny Hewitt MD PCP - General Pediatrics 11/09/11 12/30/13 documented as of this encounter
--- OUTSIDE RECORDS SUMMARY | 2024-03-21 22:03 | XMS_ITS | Encounter Summary ---
Author Organization [facility] Address [address] [facility] [address] [place] [address] Care Team Providers Care Hog Buyer Name Role Phone Laine Shrap MD Primary Care Provider [phone] Encounter Details Date Type Department Care Team (Late st Contact Info) Description 09/14/2015 Orders Only [facility] Pediatrics - GI [address] [place] [address] Blossom Lujan RN Social History Tobacco Use Types Packs/Day Years Used Date Smoking Tobacco: Never Smokeless Tobacco: Never Alcohol Use Standard Drinks/Week Comments No 0 (1 standard drink = 0.6 oz pur e alcohol) Sex and Gender Information Value Date Recorded Sex Assigned at Not on file Gender Identity Not on file Sexual Orientation Not on file documented as of this encounter Progress Notes * Blossom Lujan RN - 09/14/2015 7:04 AM CDT Received refill request for esomeprazole. Pt last seen in February 2015 with plan to schedule endoscopies--this never happened. Last refill of med was in February with 2 refills, so should have run out of med several months ago. Will discuss refill with Dr Cobb. documented in this encounter Plan of Treatment Not on file documented as of this encounter Visit Diagnoses Not on filedocumented in this encounter Care Teams Hog Buyer Relationship Specialty Start Date End Date Laine Sharp MD [address] [place] [id number] PCP - General Pediatrics 12/31/13 documented as of this encounter
--- OUTSIDE RECORDS SUMMARY | 2024-03-21 22:03 | XMS_ITS | Encounter Summary ---
Author Organization [facility] Address [address] [facility] [place] [address] Care Team Providers Care Counter Intelligence Agent Name Role Phone Laine Sharp MD Primary Care Provider Reason for Visit * Auth/Cert - Closed Specialty Diagnoses / Procedures Referred By Contac t Referred To Contact Diagnoses Abdominal pain, unspecified site Procedures COLONOSCOPY BIOPSY ENDOSCOPY GI UPPER WITH BIOPSY Referral ID Status Reason Start Date Expiration Date Visits Re quested Visits Authorized [id number] Closed 1 1 Encounter Details Date Type Department Care Team (Late st Contact Info) Description 01/22/2014 9:00 AM PEDIATRIC ONCOLOGY NURSE Anesthesia Event [facility] - Endoscopy [address] [place] [address] Fito Fonseca MD [address] [place] [phone] Anesthesia Record Procedure Summary Procedure Name Responsible Anesthesiologist Anesthesia Start Time Anesthesia Stop Time COLONOSCOPY BIOPSY Fito Fonseca MD 01/22/14 0900 01/22/14 1009 Events Date Time Event Comment 01/22/2014 0652 0900 An Start To OR monitors applied, Time Out performed. 0901 An Start Data 0901 PT Reassessment Patient and Vital Signs reassessed prior to induction. 0914 An Induction Once IV started , TIVA started, O2 NC. To LLD, bite block, loose tooth intact. EtCO2 recorded will be inaccurate. Rolled blankets between his arms and legs, eyes paper-taped shut 0953 An Emergence 0954 an stop data 0954 Elect Sign The providers l isted as staff are the responsible providers for the case. 1001 ANPTO2 To PACU with pu lse ox and O2. All questions answered. Still asleep, LLD, VSS, IV patent, loose tooth intact 1009 An Stop Meds Name Total fentaNYL (SUBLIMAZE) injection 50 mcg midazolam (VERSED) 1 mg/ml injection 2 m g propofol (DIPRIVAN) 10mg/ml 346.48 mg propofol (DIPRIVAN) 10 mg/mL 100 mg lidocaine (XYLOCAINE MPF) 2% injection 4 0 mg dexamethasone (DECADRON) 4 mg/mL injecti on 4 mg ondansetron (ZOFRAN) 2mg/ml injection 4 mg isolyte-S pH 7.4 infusion 1,050 mL * Agents Name Insp. N2O Exp. Sevoflurane Insp. Sevoflurane * Blood No blood administrations on file. Lines, Drains, and Airways Type Details Placement Removal RETIRED Procedural Site 01/22/14; Pre Billing Specialist ior; Mouth; 01/22/14; 1700 01/22/14 0000 by Savanna Amador RN 01/22/14 1700 by Generic, Auto Release RETIRED Procedural Site 01/22/14; Pre Billing Specialist ior; Rectum; 01/22/14; 1700 01/22/14 0000 by Savanna Amador RN 01/22/14 1700 by Generic, Auto Release Peripheral IV Date: 01/22/14; Time: 907; Orientation: Right; Placed By: AC; Tolerance: Well 01/22/14 0908 by Richa Hammond APRN-RN APPEALS 01/22/14 1049 by Bharti Mora RN documented in this encounter Social History Tobacco [...] AM CDT documented as of this encounter Progress Notes * Itzel Virk MD - 01/22/2014 10:59 AM CST ANESTHESIA POSTPROCEDURE EVALUATION Lavelle Michael is a 13 y.o. male Temp: 36.7 ??C Pulse: 66 Resp: 14 BP: 96/54 mmHg SpO2: 100 % Pain Rating Score #1: 0 Anesthesia Type: general Mental status: neurologic status has returned to preoperative level. Level of consciousness: awake No numbness, tingling or visual disturbances present. General appearance: well-appearing Respiratory function: natural airway. Cardiac: stable Pain: comfortable/acceptable PONV: None Postop hydration: adequate. Patient may be released from anesthesia care. A postop evaluation was performed on this patient with the following assessment: no apparent anesthesia complications ATRIC ONCOLOGY NURSE documented in this encounter Consult Notes * Fito Fonseca MD - 01/22/2014 6:51 AM CST Pre-anesthesia Evaluation Procedure(s): COLONOSCOPY BIOPSY ENDOSCOPY GI UPPER WITH BIOPSY Vital Signs: Temp: 37.6 ??C (01/22 0644) BP: 105/58 mmHg (01/22 0644) BMI: Estimated body mass index is 18.09 kg/(m^2) as calculated from the following: Height as of 01/12/14: 1.642 m (5' 4.65 ). Weight as of this encounter: 48.762 kg (107 lb 8 oz). History: Past Medical History Diagnosis Date ??? ADHD (attention deficit hyperactivity disorder) on adderall and vyvanse ??? Abdominal pain, diarrhea, emesis 11/09/2011 admitted hosp 3-4 week hx ??? Eosinophilia 11/10/2011 ??? Unspecified asthma dx 2004 exercise induced asthma--uses albuterol prn--last used 06/2011--never hosp last ER visit 2008 ??? Eosinophilic gastroenteritis and colitis ??? Eosinophilic esophagitis Past Surgical History Procedure Laterality Date ??? Orchiopexy 11/27/2002 -Dr Beaver ??? Bone marrow biopsy 11/16/2011 Right; BONE MARROW BIOPSY- WAS OK ??? Pr egd flex transoral w bx sngl or mult NOV 2011 dx with EE ??? Colonoscopy with biopsy nov 2011 dx with EE/ R/o IBS ??? Colonoscopy with biopsy 05/05/2012 COLONOSCOPY BIOPSY ??? Colonoscopy with biopsy 02/20/2013 COLONOSCOPY BIOPSY ??? Endoscopy, upper 02/20/2013 ENDOSCOPY GI UPPER WITH BIOPSY reports that he has never smoked. He has never used smokeless tobacco. He reports that he does not drink alcohol or use illicit drugs. Allergies: is allergic to milk protein; other; peanut-derived; and wheat. Medications: Prescriptions prior to admission Medication Sig Dispense Refill ??? lisdexamfetamine (VYVANSE) 50 MG capsule Take 50 mg by mouth every morning. ??? esomeprazole (NEXIUM) 40 MG capsule Take 1 Cap by mouth daily before breakfast for 30 days. 30 Cap 3 ??? fluticasone hfa (FLOVENT HFA) 220 MCG/ACT inhaler Take 2 puffs twice daily. Take puffs orally while holding breath 1 minute apart, then drink some water. Indications: Eosinophilic Esophagitis 1 Inhaler 6 ??? albuterol HFA (PROVENTIL;VENTOLIN;PROAIR) 108 (90 BASE) MCG/ACT inhaler Inhale 2 Puffs by mouthevery 6 hours as needed. ??? loratadine (CLARITIN) 10 MG tablet Take 10 mg by mouth once daily. ??? mometasone (ELOCON) 0.1 % ointment Apply to affected area once daily as needed (for red, itcheyskin). 15 g 6 No current facility-administered medications on file prior to encounter. Current Outpatient Prescriptions on File Prior to Encounter Medication Sig Dispense Refill ??? lisdexamfetamine (VYVANSE) 50 MG capsule Take 50 mg by mouth every morning. ??? esomeprazole (NEXIUM) 40 MG capsule Take 1 Cap by mouth daily before breakfast for 30 days. 30 Cap 3 ??? fluticasone hfa (FLOVENT HFA) 220 MCG/ACT inhaler Take 2 puffs twice daily. Take puffs orally while holding breath 1 minute apart, then drink some water. Indications: Eosinophilic Esophagitis 1 Inhaler 6 ??? albuterol HFA (PROVENTIL;VENTOLIN;PROAIR) 108 (90 BASE) MCG/ACT inhaler Inhale 2 Puffs by mouthevery 6 hours as needed. ??? loratadine (CLARITIN) 10 MG tablet Take 10 mg by mouth once daily. ??? mometasone (ELOCON) 0.1 % ointment Apply to affected area once daily as needed (for red, itcheyskin). 15 g 6 Physical Exam: NPO status: no solids since midnight and no liquids within 2 hours Oriented to person, place and time Neck ROM: full Dental exam findings: loose and normal/ok (loose right upper molar) Pulmonary exam: breath sounds CTA Heart sounds: S1 S2 Negative for anesthesia complications Plan for Anesthesia: ASA Score: 2. Anesthesia plan: general Planned method of induction: intravenous Planned postop destination: PACU Anesthesia plan, risks and benefits discussed with mother, father and patient Anesthesia consent: obtained Plan accepted yes Discussed anesthesia plan with: RN APPEALS. ATRIC ONCOLOGY NURSE documented in this encounter Plan of Treatment Not on file documented as of this encounter Visit Diagnoses Not on filedocumented in this encounter Administered Medications Inactive Administered Medications - up to 3 most recent administrations Medication Order MAR Action Action Date Dose Rate Site dexamethasone (DECADRON) injection PRN, Nausea/Vomiting, Starting on Sat01/22/14 at 0924, Until Sat01/22/14 at 1009, Anesthesia Intra-op $ Given 01/22/2014 9:24 AM PEDIATRIC ONCOLOGY NURSE 4 mg fentaNYL (SUBLIMAZE) injection PRN, Starting on Sat01/22/14 at 0914, Until Sat01/22/14 at 1009, Anesthesia Intra-op $ Given 01/22/2014 9:14 AM PEDIATRIC ONCOLOGY NURSE 50 mcg isolyte-S pH 7.4 infusion CONTINUOUS PRN, Starting on Sat01/22/14 at 0908, Until Sat01/22/14 at 1009, Anesthesia Intra-op $ New Bag/Syringe 01/22/2014 10:01 AM PEDIATRIC ONCOLOGY NURSE $ New Bag/Syringe 01/22/2014 9:37 AM PEDIATRIC ONCOLOGY NURSE $ New Bag/Syringe 01/22/2014 9:08 AM PEDIATRIC ONCOLOGY NURSE lidocaine (XYLOCAINE MPF) 2 % injection PRN, Starting on Sat01/22/14 at 0914, Until Sat01/22/14 at 1009, Anesthesia Intra-op $ Given 01/22/2014 9:14 AM PEDIATRIC ONCOLOGY NURSE 40 mg midazolam (VERSED) injection PRN, Starting on Sat01/22/14 at 0914, Until Sat01/22/14 at 1009, Anesthesia Intra-op $ Given 01/22/2014 9:21 AM PEDIATRIC ONCOLOGY NURSE 1 mg $ Given 01/22/2014 9:14 AM PEDIATRIC ONCOLOGY NURSE 1 mg ondansetron (ZOFRAN) injection PRN, Nausea/Vomiting, Starting on Sat01/22/14 at 0924, Until Sat01/22/14 at 1009, Anesthesia Intra-op $ Given 01/22/2014 9:24 AM PEDIATRIC ONCOLOGY NURSE 4 mg propofol (DIPRIVAN) 10 mg/ml injection PRN, Sedation, Starting on Sat01/22/14 at 0917, Until Sat01/22/14 at 1009, Anesthesia Intra-op $ Given 01/22/2014 9:24 AM PEDIATRIC ONCOLOGY NURSE 50 mg $ Given 01/22/2014 9:17 AM PEDIATRIC ONCOLOGY NURSE 50 mg propofol (DIPRIVAN) injection CONTINUOUS PRN, Starting on Sat01/22/14 at 0914, Until Sat01/22/14 at 1009, Anesthesia Intra-op Rate Change 01/22/2014 9:47 AM PEDIATRIC ONCOLOGY NURSE 100 mcg/kg/min 29.28 mL/hr $ New Bag/Syringe 01/22/2014 9:21 AM PEDIATRIC ONCOLOGY NURSE 250 mcg/kg/min 73 .2 mL/hr documented in this encounter Care Teams Counter Intelligence Agent Relationship Specialty Start Date End Date Laine Sharp MD [address] [id number] PCP - General Pediatrics 12/31/13 documented as of this encounter
--- OUTSIDE RECORDS SUMMARY | 2024-03-21 22:03 | XMS_ITS | Encounter Summary ---
Author Organization [facility] Address [address] [facility] [place] [address] Care Team Providers Care Subwarehouse Supervisor Name Role Phone Lanny Hewitt MD Primary Care Provider [phone] Reason for Visit * Auth/Cert - Closed Specialty Diagnoses / Procedures Referred By Contac t Referred To Contact Diagnoses EE (eosinophilic esophagitis) Procedures COLONOSCOPY BIOPSY ENDOSCOPY GI UPPER WITH BIOPSY Referral ID Status Reason Start Date Expiration Date Visits Re quested Visits Authorized [id number] Closed 1 1 Encounter Details Date Type Department Care Team (Late Contact Info) Description 02/20/2013 8:36 AM DIRECTOR OF CLINICAL TRIALS Anesthesia Event [facility] - Endoscopy [address] [place] [address] Nishi Stern MD [address] [place] [address] Richa Hammond APRN-DOMESTIC LAUNDRY WORKER [address] [place] [address] [place] [address] Anesthesia Record Procedure Summary Procedure Name Responsible Anesthesiologist Anesthesia Start Time Anesthesia Stop Time COLONOSCOPY BIOPSY (ANY METHOD) Nishi Stern MD 02/20/13 0836 02/20/13 1015 Events Date Time Event Comment 02/20/2013 0836 An Start To OR monitors applied, Time Out performed. Attempt x 2 to start IV/DOMESTIC LAUNDRY WORKER. IV started RH/Jarred HENRY. Pt refuses any nitrous oxide. 0837 An Start Data 0846 An Induction Versed and fent anyl given. TIVA started. To LLD, O2 NC, EtCO2 recorded will be inaccurate. Small reddened fissure noted right ear where it meets head (very dry skin) 1007 An Emergence 1010 an stop data 1013 ANPTO2 Patient Transpo rted to PACU on O2, with SpO2 monitoring. Report Given to PACU Nurse. Questions answered. Asleep with oral airway still in, VSS, NAD, breathing regularly. 1015 Elect Sign The providers l isted as staff are the responsible providers for the case. 1015 An Stop 02/21/2013 1056 Meds Name Total fentaNYL (Sublimaze) injection 0.05 mg/m L 25 mcg midazolam (VERSED) 1 mg/mL injection 1 m g propofol (DIPRIVAN) 10mg/ml 669.5 mg propofol (DIPRIVAN) 10 mg/mL 80 mg lidocaine (MPF) 2% injection 20 mg dexamethasone (DECADRON) 4 mg/ml injecti on 4 mg ondansetron (ZOFRAN) 2mg/mL injection 4 mg isolyte-S pH 7.4 infusion 900 mL * Agents Name Insp. N2O * Blood No blood administrations on file. Lines, Drains, and Airways Type Details Placement Removal Peripheral IV Date: 02/20/13; Time: 0751 02/20/13 0751 by Richa Hammond APRN-DOMESTIC LAUNDRY WORKER 02/20/13 1152 by Jenna Araujo RN RETIRED Procedural Site 02/20/13; 0812; Mouth; 02/20/13; 18102/20/13 0812 by Franci Mcdonnell RN 02/20/13 181 by Generic, Auto Release RETIRED Procedural Site 02/20/13; 0812; Rectum; 02/20/13; 18102/20/13 0812 by Franci Mcdonnell RN 02/20/13 181 by Generic, Auto Release Peripheral IV Date: 02/20/13; Time: 0843; Orientation: Right; Placed By: Jarred HENRY; Tolerance: Well 02/20/13 0843 by Richa Hammond APRN-DOMESTIC LAUNDRY WORKER 02/20/13 1200 by Jenna Araujo RN documented in this encounter Social History [...] as of this encounter Progress Notes * Nishi Stern MD - 02/20/2013 10:53 AM CST ANESTHESIA POSTPROCEDURE EVALUATION Lavelle Michael is a 12 y.o. male Temp: 36.7 ??C Pulse: 77 Resp: 24 BP: 106/69 mmHg SpO2: 99 % Pain Rating Score #: 0 A postop evaluation was performed on this patient with the following assessment: no apparent anesthesia complications Mental status: sufficiently recovered from acute administration of anesthesia to participate in theevaluation. Level of consciousness: awake General appearance: well-appearing Respiratory function: natural airway. Cardiac: stable Pain: comfortable/acceptable PONV: None Postop hydration: adequate. Final anesthesia type: general mask Patient may be released from anesthesia care. CTOR OF CLINICAL TRIALS documented in this encounter Consult Notes * Nishi Stern MD - 02/20/2013 8:19 AM CST Pre-anesthesia Evaluation Procedure(s) (LRB): COLONOSCOPY BIOPSY () ENDOSCOPY GI UPPER WITH BIOPSY () Vital Signs: BMI: Estimated Body mass index is 17.49 kg/(m^2) as calculated from the following: Height as of 05/26/12: 4' 10.268 (1.48 m). Weight as of 05/26/12: 84 lb 7 oz(38.3 kg). History: Past Medical History Diagnosis Date ??? ADHD (attention deficit hyperactivity disorder) on adderall and vyvanse ??? Abdominal pain, diarrhea, emesis 11/09/2011 admitted hosp 3-4 week hx ??? Eosinophilia 11/10/2011 ??? Unspecified asthma dx 2004 exercise induced asthma--uses albuterol prn--last used 06/2011--never hosp last ER visit 2008 Past Surgical History Procedure Date ??? Orchiopexy 11/27/2002 -Dr Beaver ??? Bone marrow biopsy 11/16/2011 Right; BONE MARROW BIOPSY- WAS OK ??? Pr upper gi endoscopy,biopsy NOV 2011 dx with EE ??? Colonoscopy with biopsy nov 2011 dx with EE/ R/o IBS ??? Colonoscopy with biopsy 05/05/2012 COLONOSCOPY BIOPSY reports that he has never smoked. He has never used smokeless tobacco. He reports that he does not drink alcohol or use illicit drugs. Allergies: is allergic to milk protein; other; peanut-derived; and wheat. Medications: Prescriptions prior to admission Medication Status Sig Dispense Refill ??? esomeprazole (NEXIUM) 10 MG packet Active Take 1 Packet by mouth 2 times daily,before breakfastand supper. 60 Packet 1 ??? fluticasone hfa (FLOVENT HFA) 220 MCG/ACT inhaler Active Take 2 puffs twice daily. Take puffs orally while holding breath 1 minute apart, then drink some water. Indications: Eosinophilic Esophagitis 1 Inhaler 6 ??? cetirizine (ZYRTEC ALLERGY) 10 MG tablet Active Take 1 Tab by mouth at bedtime. 30 Tab 5 ??? mometasone (ELOCON) 0.1 % ointment Active Apply to affected area once daily as needed (for red,itchey skin). 15 g 6 ??? albuterol HFA (PROVENTIL;VENTOLIN;PROAIR) 108 (90 BASE) MCG/ACT inhaler Active Inhale 2 Puffs by mouth every 6 hours as needed. ??? lisdexamfetamine (VYVANSE) 40 MG capsule Active Take 40 mg by mouth once daily. ??? amphetamine-dextroamphetamine (ADDERALL) 5 MG tablet Active Take 5 mg by mouth every morning. No current facility-administered medications for this visit. No current outpatient prescriptions on file. Facility-Administered Medications Ordered in Other Visits: lidocaine (LMX 4) 4 % cream, Active, , Topical, Once, Kenzie Cobb MD Physical Exam: NPO status: since midnight Oriented to person, place and time Airway: II Neck ROM: full Dental exam findings: normal/ok and loose (left upper) Pulmonary exam: breath sounds CTA Heart sounds: S1 S2 Spinal Alignment: symmetrical Positive for gastroesophageal reflux disease (oral steroids) Plan for Anesthesia: ASA Score: 2. ASA Comments: asthma, allergic rhinitis Anesthesia plan: general Planned method of induction: intravenous Planned postop destination: PACU Anesthesia plan, risks and benefits discussed with mother and father Discussed anesthesia plan with: anesthesiologist. CTOR OF CLINICAL TRIALS documented in this encounter Plan of Treatment Not on file documented as of this encounter Visit Diagnoses Not on filedocumented in this encounter Administered Medications Inactive Administered Medications - up to 3 most recent administrations Medication Order MAR Action Action Date Dose Rate Site dexamethasone (DECADRON) injection PRN, Nausea/Vomiting, Starting on Sat02/20/13 at 0903, Until 02/21/13 at 1058, Anesthesia Intra-op $ Given 02/20/2013 9:03 AM DIRECTOR OF CLINICAL TRIALS 4 mg fentaNYL (SUBLIMAZE) injection PRN, Starting on Sat02/20/13 at 0846, Until 02/21/13 at 1058, Intra-op $ Given 02/20/2013 9:17 AM DIRECTOR OF CLINICAL TRIALS 12.5 mcg $ Given 02/20/2013 8:46 AM DIRECTOR OF CLINICAL TRIALS 12.5 mcg isolyte-S pH 7.4 infusion CONTINUOUS PRN, Starting on Sat02/20/13 at 0843, Until 02/21/13 at 1058, Anesthesia Intra-op $ New Bag/Syringe 02/20/2013 9:15 AM DIRECTOR OF CLINICAL TRIALS mL $ New Bag/Syringe 02/20/2013 8:43 AM DIRECTOR OF CLINICAL TRIALS mL lidocaine (XYLOCAINE MPF) 2 % injection PRN, Starting on Sat02/20/13 at 0848, Until 02/21/13 at 1058, Anesthesia Intra-op $ Given 02/20/2013 8:48 AM DIRECTOR OF CLINICAL TRIALS 20 mg midazolam (VERSED) injection PRN, Starting on Sat02/20/13 at 0846, Until 02/21/13 at 1058, Intra-op $ Given 02/20/2013 8:46 AM DIRECTOR OF CLINICAL TRIALS 1 mg ondansetron (ZOFRAN) injection PRN, Nausea/Vomiting, Starting on Sat02/20/13 at 0903, Until 02/21/13 at 1058, Anesthesia Intra-op $ Given 02/20/2013 9:03 AM DIRECTOR OF CLINICAL TRIALS 4 mg propofol (DIPRIVAN) 10 mg/ml injection PRN, Sedation, Starting on Sat02/20/13 at 0848, Until 02/21/13 at 1058, Anesthesia Intra-op $ Given 02/20/2013 8:55 AM DIRECTOR OF CLINICAL TRIALS 10 mg $ Given 02/20/2013 8:50 AM DIRECTOR OF CLINICAL TRIALS 30 mg $ Given 02/20/2013 8:48 AM DIRECTOR OF CLINICAL TRIALS 40 mg propofol (DIPRIVAN) injection CONTINUOUS PRN, Starting on Sat02/20/13 at 0848, Until 02/21/13 at 1058, Anesthesia Intra-op Rate Change 02/20/2013 9:51 AM DIRECTOR OF CLINICAL TRIALS 100 mcg/kg/min 24.72 mL/hr Rate Change 02/20/2013 9:41 AM DIRECTOR OF CLINICAL TRIALS 200 mcg/kg/min 49.44 mL /hr Rate Change 02/20/2013 9:36 AM DIRECTOR OF CLINICAL TRIALS 100 mcg/kg/min 24.72 mL /hr documented in this encounter Care Teams Subwarehouse Supervisor Relationship Specialty Start Date End Date Lanny Hewitt MD PCP - General Pediatrics 11/09/11 12/30/13 documented as of this encounter
--- OUTSIDE RECORDS SUMMARY | 2024-03-21 22:03 | XMS_ITS | Encounter Summary ---
Author Organization [facility] Address [address] [facility] [place] [address] Care Team Providers Care Railroad Worker Name Role Phone Laine Sharp MD Primary Care Provider [phone] Reason for Visit * Reason Onset Date Comments Scheduling 01/12/2014 EGD/colon Encounter Details Date Type Department Care Team (Late st Contact Info) Description 01/12/[address] [facility] Pediatrics - GI [facility] [place] [address] Kenzie Cobb MD [facility] [place] [address] Scheduling (EGD/colon) Social History Tobacco Use Types Packs/Day Years [...] encounter Miscellaneous Notes * Telephone Encounter - Ariana Kelly - 01/12/2014 11:40 AM CST Spoke to Anita in [facility], patient scheduled for EGD/colon on 01-22-14 at 930, following brother Alphonse CT [place] documented in this encounter Plan of Treatment Not on file documented as of this encounter Visit Diagnoses Not on filedocumented in this encounter Care Teams Railroad Worker Relationship Specialty Start Date End Date Laine Sharp MD [address] [place] [phone] PCP - General Pediatrics 12/31/13 documented as of this encounter
--- OUTSIDE RECORDS SUMMARY | 2024-03-21 22:03 | XMS_ITS | Encounter Summary ---
Author Organization [facility] Address [address] [facility] [place] [address] Care Team Providers Care Architecture Consultant Name Role Phone Lanny Hewitt MD Primary Care Provider [phone] Laine Sharp MD Primary Care Provider [phone] Reason for Visit * Reason Onset Date Comments Question 07/21/2013 Encounter Details Date Type Department Care Team (Late st Contact Info) Description 07/21/2013 Telephone [facility] Pediatrics - [address] [place] [address] Kenzie Cobb MD [address] [place] [id number] Question Social History Tobacco Use Types Packs/Day [...] Telephone Encounter - Blossom Lujan RN - 07/21/2013 12:24 PM CDT Dad reports that pt is generally not feeling well & he would like to check cbc to see what pt'seos are doing. Discussed with Dr Cobb, order entered & faxed to [facility] @ [phone]. Will discuss symptoms, etc further with dad when we get the cbc results. * Telephone Encounter - Kiley Silva - 07/21/2013 12:06 PM CDT Dad calling to see about getting an order for labs sent to [facility] in [place] because Lavelle isstarting to not feel well. He also would like to schedule a repeat EGD, if appropriate would need orders. documented in this encounter Plan of Treatment Not on file documented as of this encounter Visit Diagnoses Diagnosis Eosinophilia- Primary documented in this encounter Care Teams Architecture Consultant Relationship Specialty Start Date End Date Lanny Hewitt MD PCP - General Pediatrics 11/09/11 12/30/13 Laine Sharp MD [address] [place] [address] [place] [phone] PCP - General Pediatrics 12/31/13 documented as of this encounter
--- OUTSIDE RECORDS SUMMARY | 2024-03-21 22:03 | XMS_ITS | Encounter Summary ---
Author Organization [facility] Address [address] [facility] [place] [address] Care Team Providers Care Top Lift Scourer Name Role Phone Laine Sharp MD Primary Care Provider [phone] Reason for Visit * Reason Onset Date Comments Question 02/28/2016 Encounter Details Date Type Department Care Team (Late st Contact Info) Description 02/28/2016 Telephone [facility] Pediatrics - [address] [place] [address] Kenzie Cobb MD [address] [place] [address] Question Social History Tobacco Use Types Packs/Day [...] Telephone Encounter - Blossom Lujan RN - 02/28/2016 12:01 PM SECURITY OFFICER Review of chart indicates that pt has EE & peripheral eosinophilia--told Rebecca that this is nota life-threatening condition (though it is annoying). RITY OFFICER * Telephone Encounter - Kiley Silva - 02/28/2016 11:47 AM SECURITY OFFICER Rebecca from [facility] [place] calling to discuss Lavelle's diagnosis as she is not sure it qualifies [facility]. She apologizes for phone tag and thinks the best time to reach her this week may be . RITY OFFICER documented in this encounter Plan of Treatment Not on file documented as of this encounter Visit Diagnoses Not on filedocumented in this encounter Care Teams Top Lift Scourer Relationship Specialty Start Date End Date Laine Sharp MD [address] [phone] PCP - General Pediatrics 12/31/13 documented as of this encounter
--- OUTSIDE RECORDS SUMMARY | 2024-03-21 22:03 | XMS_ITS | Encounter Summary ---
Author Organization [facility] Address [address] [place] [address] Care Team Providers Care Furniture Assembly Supervisor Name Role Phone Lanny Hewitt MD Primary Care Provider [phone] Reason for Visit * Reason Onset Date Comments Update 07/30/2012 Encounter Details Date Type Department Care Team (Late st Contact Info) Description 07/30/2012 Telephone [facility] - [address] [place] [address] Kenzie Cobb MD [address] [place] [address] Update Social History Tobacco Use Types Packs/Day Years [...] Telephone Encounter - Blossom Lujan RN - 08/06/2012 3:38 PM CDT Talked with dad, he will take pt to [facility] in [place] to have labs drawn on 08/08. Orders entered per Dr. English's note & faxed to [phone]. Dad states that they will call for allergy appt. * Telephone Encounter - Kiley Silva - 08/06/2012 1:57 PM CDT Dad returning call. * Telephone Encounter - Blossom Lujan RN - 08/06/2012 1:28 PM CDT Unable to tell if the cytokine panel was faxed along with the initial information sent to [facility]--printed the results & faxed to Maura Roldan as per Dr. Cobb's note. LM on unidentified home VM to call us to arrange having labs drawn. Also left # to schedule allergyF/U on this number. * Telephone Encounter - Kenzie Cobb MD - 08/06/2012 9:55 AM CDT FYI I called and left msg with mom that I 1. Emailed [employer] sales service coordinator to check on status of referral to [facility]. I want to send his most recent cytokine panel there - I dont know if that was sent before (done on 05/26) .. It might have been already sent with all his records.. If it was not sent, will you send that to [phone] ATTN: Maura Roldan 2. Talked to Dr. Goff about him .. He sent me a response in Strut, see below. Would like him to have a CBC CMP, tryptase, 3. Would you have him make a follow up appt with A/I? ( Thanks! Kenzie * Telephone Encounter - Kunal Goff MD - 08/05/2012 1:01 PM CDT Results of cytokine panel noted: cytokine IL5 was elevated at 28 without other abnormalities (unsure of the date). His IL-5 was 8 on 01/08/13, 1 week after the prednisone course. According to Dr. Cobb, he has been off prednisone but had a recent enteric budesonide course. This is a 12 yo who presented with abdominal pain and diarrhea, at that time had markedly elevated AEC of 4901, and was found to have eosinophilic esophagitis,gastritis,duodunitis, and colitis. . Hadnormal bone marrow, fish for HES associated genes, and echocardiogram. IgE immunocaps showed multiple food sensitivities. After a prednisone course his eosinophilia has decreased with a most CBC was from 05/26/12 with an absolute eosinophil count of 954 (elevated, below range associated with HES. 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 Would: Obtain CBC with diff now and q 3 months. Would also obtain a comprehensive metabolic panel, serum vitamin B12 levels, ESR, and serum tryptase levels. Would obtain an echo yearly. Would like A/I follow up (was due in June,). Agree with management with enteric budesonide as warranted for lower GI symptoms. May need repeated oral prednisone courses if peripheral eosinophilia again worsens. Anti-IL 5 treatment a possibility. Agree with evaluation at [facility]. * Telephone Encounter - Kenzie Cobb MD - 07/30/2012 3:05 PM CDT I called family to see if they heard from [facility] yet- mom said she filled out intake form and returned it a few weeks ago.. I wanted to let you know that I just saw that cytokine IL5 was elevated at 28.. Rest of cytokine panel was normal... documented in this encounter Plan of Treatment Not on file documented as of this encounter Visit Diagnoses Diagnosis EE (eosinophilic esophagitis) Eosinophilic esophagitis documented in this encounter Care Teams Furniture Assembly Supervisor Relationship Specialty Start Date End Date Lanny Hewitt MD PCP - General Pediatrics 11/09/11 12/30/13 documented as of this encounter
--- OUTSIDE RECORDS SUMMARY | 2024-03-21 22:03 | XMS_ITS | Encounter Summary ---
Author Organization [facility] Address [address] [place] [address] Care Team Providers Care Replenishment Merchandising Associate Name Role Phone Lanny Hewitt MD Primary Care Provider Encounter Details Date Type Department Care Team (Latest Contact Info) Description 05/26/2012 1:33 PM CDT - 05/26/2012 11:59 PM CDT Hospital Encounter [facility] at [address] [address] Farhana Marti MD [address] [place] [id number] Discharge Disposition: Home or Self Care Social [...] Sign Reading Time Taken Comments Blood Pressure 92/60 05/26/2012 1:48 PM CDT Pulse 76 05/26/2012 1:48 PM CDT Temperature 35.8 ??C (96.4 ??F) 05/26/2012 1:48 PM CD T Respiratory Rate 20 05/26/2012 1:48 PM CDT Oxygen Saturation 99% 05/26/2012 1:48 PM CDT Inhaled Oxygen Concentration - - Weight 38.3 kg (84 lb 7 oz) 05/26/2012 1:48 PM C DT Height 148 cm (4' 10.27 ) 05/26/2012 1:48 PM CDT Body Mass Index 17.49 05/26/2012 1:48 PM CDT Body Mass Index Percentile 34.91% 05/26/2012 1: 48 PM CDT Growth Chart: [facility] (Boys, 2-2 0 Years) documented in this encounter Discharge Instructions * Discharge Instructions* Document, Scanned - 05/26/2012 7:51 PM CDT documented in this encounter Medications at Time of Discharge Medication Sig Dispensed Refills Start Date End Date albuterol HFA (PROVENTIL;VENTOLIN;P ROAIR) 108 (90 BASE) MCG/ACT inhaler Inhale 2 Puffs by mouth every 6 hours as needed. 02/17/2015 amphetamine-dextroamp hetamine (ADDERALL) 5 MG tablet Take 5 mg by mouth every morning. 01/12/2014 budesonide (ENTOCORT EC) 3 MG capsule Take 3 Caps by mouth once daily for 28 days. 84 Cap 0 05/22/2012 06/19/2012 cetirizine (ZYRTEC ALLERGY) 10 MG tablet Take 1 Tab by mouth at bedtime. 30 Tab 5 02/12/2012 01/12/2014 esomeprazole (NEXIUM) 10 MG packet Take 1 Packet by mouth 2 times daily before meals. 60 Packet 5 01/30/2012 02/11/2013 fluticasone hfa (FLOVENT HFA) 220 MCG/ACT inhalerIndications:Eo sinophilic Esophagitis Take 2 Puffs by mouth 2 times daily. Take 2 puffs orally while holding breath 1 minute apart, then drink some water. Indications: Eosinophilic Esophagitis 1 Inhaler 6 02/12/2012 09/22/2012 lisdexamfetamine (VYVANSE) 40 MG capsule Take 40 mg by mouth once daily. 01/12/2014 mometasone (ELOCON) 0.1 % ointmentIndications:E czema Apply to affected area once daily as needed (for red, itchey skin). 15 g 6 02/12/2012 10/17/2016 documented as of this encounter Progress Notes * Roshan Costa RN - 05/26/2012 3:10 PM CDT Pt arrived today for new patient visit. Triaged and assessed per Tc Dempsey RN. Seen by Dr. Marti. Family given lab requisitions and directed to outpt lab to have labs drawn. Translimit card given to mom. Family informed that Dr. Marti will confer with the GI team after lab results are back anddiscuss future plan and f/u. documented in this encounter H&P Notes * Farhana Marti MD - 05/26/2012 1:56 PM CDT Hematology/Oncology New Patient Evaluation 05/26/2012 Lavelle Michael PCP: Lanny Hewitt Diagnosis: eosinophilia, diarrhea, abd pain Protocol/Regimen: NA Mom cell (Maria G) [phone] Allergies Allergen Reactions ??? Milk Protein ??? Other CLEAR TAPE CAUSED IRRITATION. PLEASE USE CLOTH TAPE ??? Peanut-Derived ??? Wheat Prior to Admission medications Medication Sig Start Date End Date Taking? Authorizing Provider budesonide (ENTOCORT EC) 3 MG capsule Take 3 Caps by mouth once daily for 28 days. 05/22/12 06/19/12 Kenzie Cobb MD fluticasone hfa (FLOVENT HFA) 220 MCG/ACT inhaler Take 2 Puffs by mouth 2 times daily. Take 2 puffsorally while holding breath 1 minute apart, then drink some water. Indications: Eosinophilic Esophagitis 02/12/12 Kunal Goff MD cetirizine (ZYRTEC ALLERGY) 10 MG tablet Take 1 Tab by mouth at bedtime. 02/12/12 Kunal Goff MD mometasone (ELOCON) 0.1 % ointment Apply to affected area once daily as needed (for red, itchey skin). 02/12/12 Kunal Goff MD esomeprazole (NEXIUM) 10 MG packet Take 1 Packet by mouth 2 times daily before meals. 01/30/12 Kenzie Cobb MD albuterol HFA (PROVENTIL;VENTOLIN;PROAIR) 108 (90 BASE) MCG/ACT inhaler Inhale 2 Puffs by mouth every 6 hours as needed. Historical Provider, lisdexamfetamine (VYVANSE) 40 MG capsule Take 40 mg by mouth once daily. Historical Provider, amphetamine-dextroamphetamine (ADDERALL) 5 MG tablet Take 5 mg by mouth every morning. 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 05/05/12 EGD showed more extensiveesosinophilic infiltrates than on 11/16/11 EGD, despite decrease in peripheral eos. Still having signif N/V/D, abd pain - steroid pulses help, but Sx's always return when steroids are done. Took pulse steroids in Nov and Dec. 3-week course of oral Entocort in Mar. GI is considering another course of Entocort, as well as possibly additional immune suppression, however want to rule-out possibility of underlying leukemic etiology that would preclude more potent immunomodulator/suppressives/biologic therapies in the future. Local CBC's have been showing elevated eosinophils on periph counts. He has remained afeb. No hospitalizations, no surgeries since Nov. Weight fluctuates, depending on appetite, which waxes and wanes. Occ c/o leg pains, achiness. Recently c/o 'rib pain'. Past Medical History: ADHD - on Vyvanse and Adderal 1yo - surgery for undescended testicle Hx of egg allergy when he was 1 year old (abdominal pain and vomiting) but eats cake and products where the egg is included. Exercise induced asthma which is well controlled with albuterol prn. 11yo boy with PMH of ADHD who was admitted 11/09/2011 for eval of 4wk h/o diarrhea, vomiting and RUQand epigastric abd pain. 1 week prior to presentation he began having episodes of vomiting and hives/flushing which started first in the face and spread down to his abdomen. The hives/flushing last 30min to 2hrs, itchy, resolved with benadryl. Having episodes ~1-2x/day. Flushing episodes are usu associated w/ upset stomach, followed by excessive fatigue once episodes resolve. Had remained afeb since onset of current illness. No weight loss, occ sweating, restless legs whilesleeping, occ muscle cramps. No LAD. CBC's documented elev WBC w/ rising eosinophils, for which FORTUNATO was consulted to rule-out leukemia. During 11/09/11 hospitalization he underwent EGD w/ biopsies that showed significant eosinophilic infiltrates. Flow cytometry of 11/15 marrow: - NL trilineage hematopoiesis, no signif increase in marrow blasts. - notable eosinophilia. Although there are signif # of eos in marrow, they are NL in appearance, not dysplastic. - no evidence of lymphoma or acute leukemia. Chromosome analysis is NL Requested cytogenetics lab to FISH for: - the characteristic genetic translocations, microdeletions that result in fusion with -PDGFRA, to rule out chronic eosinophilic leukemia (JANIA). - inv(16)([id number]), to rule-out M4Eo subtype of AML, and t(5;14) to rule-out ALL w/ hypereosinophilia(very unlikely, given NL flow). Family Medical History: Maternal FHx of several family members w/ adult onset cancers. No FHx of childhood cancers. Older brother, younger sister - both healthy Allergies Allergen Reactions ??? Milk Protein ??? Other CLEAR TAPE CAUSED IRRITATION. PLEASE USE CLOTH TAPE ??? Peanut-Derived ??? Wheat Current Outpatient Prescriptions on File Prior to Encounter Medication Sig Dispense Refill ??? budesonide (ENTOCORT EC) 3 MG capsule Take 3 Caps by mouth once daily for 28 days. 84 Cap 0 ??? fluticasone hfa (FLOVENT HFA) 220 MCG/ACT inhaler Take 2 Puffs by mouth 2 times daily. Take 2 puffs orally while holding breath 1 minute apart, then drink some water. Indications: Eosinophilic Esophagitis 1 Inhaler 6 ??? cetirizine (ZYRTEC ALLERGY) 10 MG tablet Take 1 Tab by mouth at bedtime. 30 Tab 5 ??? mometasone (ELOCON) 0.1 % ointment Apply to affected area once daily as needed (for red, itcheyskin). 15 g 6 ??? esomeprazole (NEXIUM) 10 MG packet Take 1 Packet by mouth 2 times daily before meals. 60 Packet5 ??? albuterol HFA (PROVENTIL;VENTOLIN;PROAIR) 108 (90 BASE) MCG/ACT inhaler Inhale 2 Puffs by mouthevery 6 hours as needed. ??? lisdexamfetamine (VYVANSE) 40 MG capsule Take 40 mg by mouth once daily. ??? amphetamine-dextroamphetamine (ADDERALL) 5 MG tablet Take 5 mg by mouth every morning. Social History: Lives w/ both parents, 2 healthy siblings Review of Systems: 1) General Fever: no Wt/appetite change: no Other:no 2) Hem Bruising: no Other:no 3) Skin Rash: no Other: no 4) ENT Congestion:no Rhinorrhea: no Epistaxis: no Sore Throat: no Change in Hearing: no Earache: noStomatitis: no 5) Resp/CV Shortness of Breath: no Chest Pain: no Cough:no Palpitation: no Other: no 6) GI Pain: yes-RUQ pain Jaundice: no Nausea: yes Vomiting: yes Diarrhea: yes Constipation: no Other: no 7) Frequency: no Dysuria: no Menorrhagia/Dysmenorrhea: no Hematuria: no Other: no 8) Musculo-skeletal Pain: no Swelling/Edema: no Change in ROM: no Cyanosis: no Other: no 9) Neuro Headache: no Weakness: no Neuralgia: no Vertigo: no Seizure: no Other: no 10) Psych School Grade Behavior: no Other: no 11) Allergy/Immun no 12) Pain no 13) Nutritional Status good Physical Exam Constitutional: BP 92/60 Pulse 76 Temp 96.4 ??F Resp 20 Ht 1.48 m (4' 10.27 ) Wt 38.3 kg (84 lb 7 oz) BMI 17.49 kg/m2 SpO2 99% BSA (Calculated): 1.25 Wt Readings from Last 3 Encounters: 05/26/12 38.3 kg (84 lb 7 oz) (19.28%*) 05/05/12 38.442 kg (84 lb 12 oz) (21.08%*) 05/05/12 38.442 kg (84 lb 12 oz) (21.08%*) * Growth percentiles are based on CDC 2-20 Years data. General Appearance: No acute distress, alert, cooperative, well-appearing, thin Head: No nasal congestion or discharge Skin: no rashes, bruises, or petechiae Eyes: anicteric; intact extra-ocular movements Mouth/throat: no sores, erythema, exudates, or mucosal pallor. Tonsils not enlarged. Neck: supple without masses Lymph nodes: no palpable lymphadenopathy Chest: lungs clear to auscultation Heart: normal S1 and S2, no murmur Back: no spinous or CVA tenderness Abdomen: soft, RUQ and some epigastric tenderness to palp, no masses or hepatosplenomegaly Genitalia: deferred Extremities: no focal swelling or tenderness; full ROM Neuro: grossly intact Lab and/or Imaging Studies Recent Results (from the past 180 hour(s)) CBC W MANUAL DIFFERENTIAL Collection Time 05/26/12 3:24 PM Component Value Range WBC 10.6 4.5-14.5 x10^9/L RBC 4.55 4.00-5.20 x10^12/L Hgb 13.6 11.5-15.5 g/dL HCT 38.3 35.0-45.0 % MCV 84.2 77.0-95.0 fl MCH 29.9 25.0-33.0 pg MCHC 35.5 31.0-37.0 gm/dL RDW-CV 12.6 11.5-14.0 % MPV 10.1 (*) 6.0-9.[address] 272 100-400 x10^9/L RETIC COUNT Collection Time 05/26/12 3:24 PM Component Value Range Retic Ct 0.92 0.3-4.2 % FERRITIN Collection Time 05/26/12 3:24 PM Component Value Range Ferritin 26 10-140 ng/mL URIC ACID BLOOD Collection Time 05/26/12 3:24 PM Component Value Range Uric Acid 3.8 2.0-5.5 mg/dL LDH BLOOD Collection Time 05/26/12 3:24 PM Component Value Range LDH 238 140-260 U/L C-REACTIVE PROTEIN Collection Time 05/26/12 3:24 PM Component Value Range CRP <0.20 <=0.50 mg/dL SED RATE WESTERGREN Collection Time 05/26/12 3:24 PM Component Value Range Sed Rate Westergren 8 0-12 mm/hr DIFFERENTIAL MANUAL Collection Time 05/26/12 3:24 PM Component Value Range WBC Auto 10.6 4.5-14.5 X(10)9/L Neutro Manual 50 24-66 % Lymph Manual 31 22-61 % Loup Manual 5 3-15 % Eos Manual 9 0-10 % Atyp Lymph Manual 2 (*) <=0 % Band Manual 3 Cells Counted 100 Plt Est Adequate platelets WBC Morph Normal Poikilocytosis Occasional IRON + TIBC PANEL Collection Time 05/26/12 3:27 PM Component Value Range Iron TIBC Direct Iron Saturation % IRON 69 50 - 170 ug/dL TIBC 262 250 - 400 ug/dL Transferrin Sat % 26 20 - 50 %sat TRANSFERRIN Collection Time 05/26/12 3:27 PM Component Value Range Transferrin 239 189-388 mg/dL Procedures Labs drawn Assessment/Plan: 11 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 Etiology unclear, however given normal bone marrow evaluation in Nov (including NL FISH for clonal mutations that could cause eosinophilia) and NL CBC and periph eosinophil counts today, leukemia is an unlikely cause for his enteric esosionophilia. - agree w/ referral to [facility] - called mom to report NL lab results, including completely NL CBC, peripheral eosinophils are not elevated. Given these NL labs today, he is highly unlikely to have a malignant process. Marrow evaluation at this time is unlikely to provide any additional information. Approximately 60 minutes was spent in the care of this patient.?? 80% of that time was spent with counseling and coordination of care, explaining management decisions to the family, explaining new diagnosis, explaining proposed treatment plan, providing reassurance and answering parents' questions.?? CC: Lanny Hewitt documented in this encounter Miscellaneous Notes * Miscellaneous Scans - Document, Scanned - 06/23/2012 10:57 AM CDT documented in this encounter Plan of Treatment Not on file documented as of this encounter Procedures Procedure Name Priority Date/Time Associated Diagnosis Comments TRANSFERRIN Routine 05/26/2012 3:27 PM CDT Eosinophilia IRON + TIBC PANEL Routine 05/26/2012 3:2 7 PM CDT Eosinophilia URIC ACID BLOOD ANDREE 05/26/2012 3:24 PM CDT Eosinophilia C-REACTIVE PROTEIN Routine 05/26/2012 3: 24 PM CDT Eosinophilia ERYTHROCYTE SEDIMENTATION RATE Routine 05/26/2012 3:24 PM CDT Eosinophilia CBC W MANUAL DIFFERENTIAL ANDREE 05/26/2012 3:24 PM CDT Eosinophilia RETIC COUNT ANDREE 05/26/2012 3:24 PM CDT Eosinophilia DIFFERENTIAL MANUAL Routine 05/26/2012 3 :24 PM CDT Eosinophilia LDH BLOOD ANDREE 05/26/2012 3:24 PM CDT Eosinophilia FERRITIN ANDREE 05/26/2012 3:24 PM CDT Eosinophilia CYTOKINE PANEL Routine 05/26/2012 3:24 AM CDT Eosinophilia documented in this encounter Results * TRANSFERRIN (05/26/2012 3:27 PM CDT) Transferrin 239 189 - 388 mg/dL 05/26/2012 6:12 PM CDT [facility] Blood specimen (specimen) BLOOD SPECIMEN / Unknown 05/26/2012 3:27 PM CDT 05/26/2012 6:11 PM CDT Farhana Marti MD LAB - CHEMISTRY RICHIE Mo Organization Address City/State/ZIP Co de Phone Number [facility] [address] [place] [address] * IRON + TIBC PANEL (05/26/2012 3:27 PM CDT) Iron ug/dL 05/28/2012 6:23 AM CDT [facility] TIBC Direct ug/dL 05/28/2012 6:23 AM CDT [facility] Iron Saturation % % 05/28/2012 6:23 AM CDT [facility] Iron 69 50 - 170 ug/dL 05/28/2012 6:23 AM CDT [facility] Comment: REFERENCE INTERVAL: Iron, Serum or Plasma Access complete set of age- and/or gender-specific reference intervals for this test in the [facility] Laboratory Test Directory ([employer]). TIBC 262 250 - 400 ug/dL 05/28/2012 6:23 AM CDT [facility] Comment: REFERENCE INTERVAL: Iron Binding Capacity Total Access complete set of age- and/or gender-specific reference intervals for this test in the [facility] Test Directory ([employer]). Transferrin Saturation % 26 20 - 50 %sat 05/28/2012 6:23 AM CDT [facility] Blood specimen (specimen) BLOOD SPECIMEN / Unknown 05/26/2012 3:27 PM CDT 05/26/2012 6:11 PM CDT Farhana Marti MD LAB - CHEMISTRY RICHIE [facility] Organization Address City/State/ZIP Co de Phone Number [facility] [address] [place] [address] * (ABNORMAL) DIFFERENTIAL MANUAL (05/26/2012 3:24 PM CDT) WBC Auto 10.6 4.5 - 14.5 X(10)9/L 05/26/2012 4:06 PM CDT [facility] Neutrophil % Manual 50 24 - 66 % 05/26/2012 4:06 PM T [facility] Lymphocytes % Manual 31 22 - 61 % 05/26/2012 4:06 PM T [facility] Monocytes % Manual 5 3 - 15 % 05/26/2012 4:06 PM T [facility] Eosinophils % Manual 9 0 - 10 % 05/26/2012 4:06 PM T [facility] Atypical Lymphocyte % Manual 2(H) <=0 % 05/26/2012 4:06 PM T [facility] Band % Manual 3 % 05/26/2012 4:06 PM T [facility] Cells Counted 100 # cells 05/26/2012 4:06 PM T [facility] Platelet Estimation Adequate platelets 05/26/2012 4:06 PM CDT [facility] WBC Morph Normal 05/26/2012 4:06 PM CDT [facility] Poikilocytosis Occasional 05/26/2012 4:06 PM CDT [facility] Blood specimen (specimen) BLOOD SPECIMEN / Unknown 05/26/2012 3:24 PM CDT 05/26/2012 3:52 PM CDT Farhana Marti MD LAB - HEMATOLOGY ORD ERABLES Performing Organization Address [facility] Co de Phone Number [facility] [address] [place] [address] * SED RATE WESTERGREN (05/26/2012 3:24 PM CDT) Erythrocyte Sedimentation Rate Westergren 8 0 - 12 mm/hr 05/26/2012 4:14 PM CDT [facility] Blood specimen (specimen) BLOOD SPECIMEN / Unknown 05/26/2012 3:24 PM CDT 05/26/2012 3:28 PM CDT Farhana Marti MD LAB - HEMATOLOGY ORD ERABLES Performing Organization Address [facility] de Phone Number [facility] [address] [place] [phone] * C-REACTIVE PROTEIN (05/26/2012 3:24 PM CDT) C-Reactive Protein <0.20 <=0.50 mg/dL 05/26/2012 3:52 PM CDT [facility] Blood specimen (specimen) BLOOD SPECIMEN / Unknown 05/26/2012 3:24 PM CDT 05/26/2012 3:29 PM CDT Farhana Marti MD LAB - CHEMISTRY ORDE JULIENNE Performing Organization Address [facility] Co de Phone Number [facility] [address] [place] [phone] * LDH BLOOD (05/26/2012 3:24 PM CDT) LDH 238 140 - 260 U/L 05/26/2012 3:57 PM CDT [facility] Blood specimen (specimen) BLOOD SPECIMEN / Unknown 05/26/2012 3:24 PM CDT 05/26/2012 3:29 PM CDT Farhana Marti MD LAB - CHEMISTRY RICHIE ROBINS Performing Organization Address [facility] Co de Phone Number [facility] [address] [place] [phone] * URIC ACID BLOOD (05/26/2012 3:24 PM CDT) Uric Acid 3.8 2.0 - 5.5 mg/dL 05/26/2012 3:57 PM CDT [facility] Blood specimen (specimen) BLOOD SPECIMEN / Unknown 05/26/2012 3:24 PM CDT 05/26/2012 3:29 PM CDT Farhana Marti MD LAB - CHEMISTRY RICHIE ROBINS Performing Organization Address [facility] de Phone Number [facility] [address] [place] [address] * FERRITIN (05/26/2012 3:24 PM CDT) Ferritin 26 10 - 140 ng/mL 05/26/2012 4:00 PM CDT [facility] Blood specimen (specimen) BLOOD SPECIMEN / Unknown 05/26/2012 3:24 PM CDT 05/26/2012 3:29 PM CDT Farhana Marti MD LAB - CHEMISTRY RICHIE ROBINS Performing Organization Address [facility] de Phone Number [facility] [address] [place] [phone] * RETIC COUNT (05/26/2012 3:24 PM CDT) Reticulocyte Count 0.92 0.3 - 4.2 % 05/26/2012 3:55 PM CDT [facility] Blood specimen (specimen) BLOOD SPECIMEN / Unknown 05/26/2012 3:24 PM CDT 05/26/2012 3:52 PM CDT Farhana Marti MD LAB - HEMATOLOGY ORD ERABLES [facility] [address] [place] [address] * (ABNORMAL) CBC W MANUAL DIFFERENTIAL (05/26/2012 3:24 PM CDT) Pathologist [facility] WBC 10.6 4.5 - 14.5 x10^9/L 05/26/2012 3:54 PM CDT [facility] RBC 4.55 4.00 - 5.20 x10^12/L 05/26/2012 3:54 PM CDT [facility] Hemoglobin 13.6 11.5 - 15.5 g/dL 05/26/2012 3:54 PM CDT [facility] Hematocrit 38.3 35.0 - 45.0 % 05/26/2012 3:54 PM CDT [facility] MCV 84.2 77.0 - 95.0 fl 05/26/2012 3:54 PM CDT [facility] MCH 29.9 25.0 - 33.0 pg 05/26/2012 3:54 PM CDT [facility] MCHC 35.5 31.0 - 37.0 gm/dL 05/26/2012 3:54 PM CDT [facility] RDW-CV 12.6 11.5 - 14.0 % 05/26/2012 3:54 PM CDT [facility] MPV 10.1(H) 6.0 - 9.5 fl 05/26/2012 3:54 PM CDT [facility] Platelet Count 272 100 - 400 x10^9/L 05/26/2012 3:54 PM CDT [facility] Blood specimen (specimen) BLOOD SPECIMEN / Unknown 05/26/2012 3:24 PM CDT 05/26/2012 3:52 PM CDT Farhana Marti MD LAB - HEMATOLOGY ORD ERABLES [facility] [address] [place] [address] * (ABNORMAL) CYTOKINE PANEL 12 (05/26/2012 3:24 AM CDT) Pathologist [facility] IL-2 <5 0 - 12 pg/mL 06/03/2012 9:42 PM CDT [facility] IL-2 Receptor ([place]orro) 789 0 - 1033 pg/mL 06/03/2012 9:42 PM CDT [facility] IL-12 <5 0 - 6 pg/mL 06/03/2012 9:42 PM CDT [facility] Interferon Gamma <5 0 - 5 pg/mL 06/03/2012 9:42 PM CDT [facility] IL-4 <5 0 - 5 pg/mL 06/03/2012 9:42 PM CDT [facility] IL-5 28(H) 0 - 5 pg/mL 06/03/2012 9:42 PM CDT [facility] IL-10 <5 0 - 18 pg/mL 06/03/2012 9:42 PM CDT [facility] IL-13 <5 0 - 5 pg/mL 06/03/2012 9:42 PM CDT [facility] IL-1 Beta <5 0 - 36 pg/mL 06/03/2012 9:42 PM CDT [facility] IL-6 <5 0 - 5 pg/mL 06/03/2012 9:42 PM CDT [facility] IL-8 <5 0 - 5 pg/mL 06/03/2012 9:42 PM CDT [facility] Tumor Necrosis Factor Alpha <5 0 - 22 pg/mL 06/03/2012 9:42 PM CDT [facility] Comment: INTERPRETIVE INFORMATION: Cytokines Results are to be used for research purposes or in attempts to understand the pathophysiology of immune, infectious, or inflammatory disorders. This test was developed and its performance characteristics determined by [facility] [employer]. The U.S. Food and Drug Administration has [...] Marti MD LAB - CHEMISTRY RICHIE ROBINS [facility] Organization Address City/State/ZIP Co de Phone Number [facility] [address] [place] [address] documented in this encounter Visit Diagnoses Diagnosis Eosinophilia documented in this encounter Care Teams Replenishment Merchandising Associate Relationship Specialty Start Date End Date Lanny Hewitt MD PCP - General Pediatrics 11/09/11 12/30/13 documented as of this encounter
--- OUTSIDE RECORDS SUMMARY | 2024-03-21 22:03 | XMS_ITS | Encounter Summary ---
Author Organization [facility] Address [address] [facility] [place] [address] Care Team Providers Care Commercial Roofing Estimator Name Role Phone Laine Sharp MD Primary Care Provider [phone] Reason for Visit * Reason Onset Date Comments Refill Request 09/15/2015 Encounter Details Date Type Department Care Team (Late st Contact Info) Description 09/15/2015 Telephone [facility] Pediatrics - [facility] [place] [address] Kenzie Cobb MD [address] [place] [phone] Refill Request Social History Tobacco Use Types Packs/Day Years [...] on filedocumented in this encounter Care Teams Commercial Roofing Estimator Relationship Specialty Start Date End Date Laine Sharp MD [address] [facility] [address] [place] [id number] PCP - General Pediatrics 12/31/13 documented as of this encounter
--- OUTSIDE RECORDS SUMMARY | 2024-03-21 22:03 | XMS_ITS | Encounter Summary ---
Author Organization [facility] Address [address] [place] [address] Care Team Providers Care Creative Services Writer Name Role Phone Lanny Hewitt MD Primary Care Provider [phone] Reason for Visit * Reason Onset Date Comments MEDICATION REFILL 09/22/2012 Encounter Details Date Type Department Care Team (Late st Contact Info) Description 09/22/2012 Refill [facility] Pediatrics - Immunology [address] [place] [id number] Faith Welch, RN MEDICATION REFILL Social History Tobacco Use Types [...] this encounter Visit Diagnoses Diagnosis EE (eosinophilic esophagitis)- Primary Eosinophilic esophagitis documented in this encounter Care Teams Creative Services Writer Relationship Specialty Start Date End Date Lanny Hewitt MD PCP - General Pediatrics 11/09/11 12/30/13 documented as of this encounter
--- OUTSIDE RECORDS SUMMARY | 2024-03-21 22:03 | XMS_ITS | Encounter Summary ---
Author Organization [facility] Address [address] [place] [address] Care Team Providers Care Payroll Supervisor Name Role Phone Laine Sharp MD Primary Care Provider [phone] Reason for Visit * Reason Onset Date Comments MEDICATION REFILL 02/09/2014 Encounter Details Date Type Department Care Team (Late st Contact Info) Description 02/09/2014 Refill [facility] Pediatrics - [address] [place] [address] Kenzie Cobb MD [facility] [place] [address] MEDICATION REFILL Social History Tobacco Use Types [...] Telephone Encounter - Merary Fountain RN - 02/09/2014 1:07 PM JEWELRY CONSULTANT Refilled flovent per protocol per Dr. Cobb's note. LRY CONSULTANT documented in this encounter Plan of Treatment Not on file documented as of this encounter Visit Diagnoses Diagnosis EE (eosinophilic esophagitis) Eosinophilic esophagitis documented in this encounter Care Teams Payroll Supervisor Relationship Specialty Start Date End Date Laine Sharp MD [address] [place] [phone] PCP - General Pediatrics 12/31/13 documented as of this encounter
--- OUTSIDE RECORDS SUMMARY | 2024-03-21 22:03 | XMS_ITS | Encounter Summary ---
Author Organization [facility] Address [address] [facility] [place] [address] Care Team Providers Care Resilient Tile Installer Name Role Phone Laine Sharp MD Primary Care Provider [phone] Reason for Visit * Reason Onset Date Comments MEDICATION REFILL 06/30/2014 Encounter Details Date Type Department Care Team (Late st Contact Info) Description 06/30/2014 Telephone [facility] Pediatrics - [address] [place] [address] Kenzie Cobb MD [facility] [place] [address] MEDICATION REFILL Social History Tobacco Use Types [...] Telephone Encounter - Blossom Lujan RN - 06/30/2014 1:39 PM CDT Pt due to f/u in August, refill on nexium given to last until then. Note attached instructing family to schedule f/u. * Telephone Encounter - Kiley Silva - 06/30/2014 12:59 PM CDT Received refill request for Nexium 40 mg caps, qty 30 documented in this encounter Plan of Treatment Not on file documented as of this encounter Visit Diagnoses Not on filedocumented in this encounter Care Teams Resilient Tile Installer Relationship Specialty Start Date End Date Laine Sharp MD [address] [phone] PCP - General Pediatrics 12/31/13 documented as of this encounter
--- OUTSIDE RECORDS SUMMARY | 2024-03-21 22:03 | XMS_ITS | Encounter Summary ---
Author Organization [facility] Address [address] [place] [address] Care Team Providers Care Insurance Checker Name Role Phone Laine Sharp MD Primary Care Provider Reason for Referral * Procedure (Routine) - Closed Specialty Diagnoses / Procedures Referred By Contac t Referred To Contact Gastroenterology Diagnoses Eosinophilic gastroenteritis and colitis Eosinophilic esophagitis Procedures ENDOSCOPY, COLON, DIAGNOSTIC Faith Quispe MD [address] [place] [address] Referral ID Status Reason Start Date Expiration Date Visits Re quested Visits Authorized [id number] Closed 03/12/2019 09/08/2019 1 1 TMENT MAINTENANCE * Procedure (Routine) - Closed Specialty Diagnoses / Procedures Referred By Contac t Referred To Contact Gastroenterology Diagnoses Eosinophilic gastroenteritis and colitis Eosinophilic esophagitis Procedures EGD Faith Quispe MD [address] [place] [address] Referral ID Status Reason Start Date Expiration Date Visits Re quested Visits Authorized [id number] Closed 03/12/2019 09/08/2019 1 1 TMENT MAINTENANCE Reason for Visit * Reason Comments Follow-up EOE Encounter Details Date Type Department Care Team (Late st Contact Info) Description 03/12/2019 9:10 AM APARTMENT MAINTENANCE - 03/12/2019 11:59 PM APARTMENT MAINTENANCE Hospital Encounter [facility] - GI [address] [place] [address] Faith Quispe MD [address] [place] [address] Discharge Disposition: Home or Self Care Social [...] Sign Reading Time Taken Comments Blood Pressure 104/72 03/12/2019 9:16 AM APARTMENT MAINTENANCE Pulse - - Temperature - - Respiratory Rate - - Oxygen Saturation - - Inhaled Oxygen Concentration - - Weight 74 kg (163 lb 2.3 oz) 03/12/2019 9:16 AM APARTMENT MAINTENANCE Height 171.6 cm (5' 7.56 ) 03/12/2019 9:16 AM CS T Body Mass Index 25.13 03/12/2019 9:16 AM APARTMENT MAINTENANCE documented in this encounter Functional Status Functional [...] 10/01/2016 documented as of this encounter Discharge Instructions * Patient Instructions* Corrine Lara RN - 03/12/2019 9:33 AM APARTMENT MAINTENANCE 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 Although he has been primarily asymptomatic since 2017, he has had an increase in symptoms over the past 2 weeks. This may be related to underlying eosinophilia, but could also be due to an underlying viral illness or gastritis. Plan is to: 1. Repeat upper and lower endoscopy to evaluate for eosinophilic disease off medication. 2. Continue Nexium 40mg daily. 3. We will repeat labs at the time of the scope to look at his eosinophil count in his blood and his pancreas number. 4. Plan for GI clinic follow up in 3 months. Next steps based off scope results- may need to see inventory control manager again. TMENT MAINTENANCE documented in this encounter Medications at Time [...] 6 05/12/2019 documented as of this encounter Consult Notes * Faith Quispe MD - 03/12/2019 9:03 AM CST [facility] NOTE (SEE ATTENDING ADDENDUM/ATTESTATION FOR ADDITIONS/CORRECTIONS) CHIEF COMPLAINT: Abdominal pain, nausea Dear Laine Sharp MD Lavelle Michael was seen in the Pediatric GI Fellow's clinic in consultation with attending Dr. Cobb. HISTORY: Lavelle is a 18 year old male with history of Eosinophilic GI disease, who presents with abdominal pain and nausea .Lavelle he is accompanied by his mother and father. Clinical history is obtained from review of available EMR, patient, and parents Lavelle was seen at [facility] ED last week for abdominal pain and nausea which felt like his previous symptoms when he was first dx'd with eos GI dz. CBC showed leukocytosis, left shift, and mildly elevated absolute neutrophil count. CMP was normal. Lipase was 186 (ULN 60, so right at 3x ULN) CTscan was essentially normal (not c/w pancreatitis; fluid throughout colon representing possible gastroenteritis). He was discharged home on Nexium and Zofran. Lavelle describes the pain as crampy and throughout his abdomen. This pain has resolved since his EDvisit. He continued to have nausea and yesterday was the first day that this had resolved. He is not on swallowed Flovent or other medications. He has lost a significant amount of weight since his last visit with us but this is reportedly intentional (a lot of gym time). Prior to this episode, he only had occasional stomach ache. Denies diarrhea, dysphagia, food impaction, blood in stools, decreased appetite, mouth sores, rashes. Prior evaluation: Lavelle was previously followed by GI, but was lost to follow-up. He presented in 2011 for abdominal pain and diarrhea and found to have peripheral eosinophilia. Malignancy and infection was ruled out. Endoscopy showed eosinophils throughout the GI tract. He was referred to [place] where 6MP was recommended, however, due to family hesitancy and lack of evidence for this treatment, it was notstarted. He did well in follow-up with essential resolution of intestinal eosinophilia, however EoEremained and he was started on swallowed flovent. His last endoscopy was in November 2016 and showed no eosinophilic disease. Labs from September 2016 showed some peripheral eosinphilia (9.3%eos). Review of Records: I have reviewed lab results and imaging tests (including visualizing images personally) if available. See above. PAST MEDICAL HISTORY: Lavelle's past medical history includes: Past Medical History: Diagnosis Date ??? Abdominal pain, diarrhea, emesis 11/09/2011 admitted hosp 3-4 week hx ??? ADHD (attention deficit hyperactivity disorder) on adderall and vyvanse ??? Eosinophilia 11/10/2011 ??? Unspecified asthma dx 2004 exercise induced asthma--uses albuterol prn--last used 06/2011--never hosp last ER visit 2008 PAST SURGICAL HISTORY: Lavelle's past surgical history includes: Past Surgical [...] BIOPSY ??? Orchiopexy 11/27/2002 -Dr Beaver ??? IA EGD FLEX TRANSORAL W BX SNGL OR MULT NOV 2011 dx with EE SOCIAL HISTORY: Social History Social History Narrative Lives with mother, father, brother, and sister. . FAMILY HISTORY: Family History Problem Relation Age of Onset ??? GERD - Gastroesophageal Reflux Disease Father ??? Esophagitis Sister EoE No family history of Crohn's disease, Ulcerative colitis or celiac disease REVIEW OF SYSTEMS is negative for fever, weight loss, mouth sores, joint pains or rashes. The remainder of the 14 point review of systems is as stated in HPI or otherwise negative. CURRENT MEDICATIONS: Current Outpatient Medications Medication Sig Dispense Refill ??? esomeprazole (NEXIUM) 40 MG capsule Take 1 capsule by mouth daily before breakfast 30 capsule 5 No current facility-administered medications for this encounter. PHYSICAL EXAM: BP 104/72 Ht 1.716 m (5' 7.56 ) Wt 74 kg (163 lb 2.3 oz) BMI 25.13 kg/m2 General: Healthy, alert, well nourished Head: Normocephalic, atraumatic Eyes: No scleral icterus, no injection Mouth: Moist mucus membranes, no oral ulcers Neck: No lymphadenopathy Heart: Regular rate and rhythm, no murmur Lungs: Clear to auscultation bilaterally Abdomen: soft, nontender, nondistended, no Hepatosplenomegaly Extremities: warm and well perfused, no joint swelling Neuro: No facial asymmetry, normal tone Skin: arm tattoo- right upper arm IMPRESSION: In summary, Lavelle is a 18 year old male with history of eosinophilic GI disease (esophagus, stomach, small duodenum, colon), previously in remission, with acute onset of abdominal pain and nausea last week. Although this may potentially be related to his underlying eosinophilic disease, the acute onset may lean toward a acute viral illness/gastritis or potentially pancreatitis (although lipase right at 3x ULN and no findings on CT). Other possibilities include peptic disease, H. Pylor, and IBD, although less likely. PLAN: 1. Repeat upper and lower endoscopy to evaluate if still in remission from eosinophilic GI disease. 2. Repeat labs at time of scope. 3. Continue Nexium. 4. Work on transition to adult GI care if still needs to be followed. Orders Placed This Encounter ??? HELICOBACTER PYLORI UREASE (STL) Standing Status: Future Standing Expiration Date: 03/11/2020 ??? CBC W AUTO DIFFERENTIAL Standing Status: Future Standing Expiration Date: 03/06/2020 ??? COMPREHENSIVE METABOLIC PANEL Standing Status: Future Standing Expiration Date: 03/06/2020 ??? LIPASE BLOOD Standing Status: Future Standing Expiration Date: 03/06/2020 ??? EGD Standing Status: Future Standing Expiration Date: 03/12/2020 ??? ENDOSCOPY, COLON, DIAGNOSTIC Standing Status: Future Standing Expiration Date: 03/12/2020 ??? 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 Although he has been primarily asymptomatic since 2017, he has had an increase in symptoms over the past 2 weeks. This may be related to underlying eosinophilia, but could also be due to an underlying viral illness or gastritis. Plan is to: 1. Repeat upper and lower endoscopy to evaluate for eosinophilic disease off medication. 2. Continue Nexium 40mg daily. 3. We will repeat labs at the time of the scope to look at his eosinophil count in his blood and his pancreas number. 4. Plan for GI clinic followup in 3 months. Next steps based off scope results- may need to see inventory control manager again. 03/12/2019 9:46 AM Lavelle was seen and examined with attending . See attending addenum/attestation for additions/corrections. Please feel free to call our office with any questions or concerns. Thank you for this consultation. TMENT MAINTENANCE Associated attestation - Kenzie Cobb MD - 03/12/2019 10:36 AM APARTMENT MAINTENANCE I confirmed history and personally examined Lavelle with Dr. Quispe. I know Lavelle very well from his diagnosis of EGE many years ago. More recent endoscopies and bloodwork were reassuring in 2017. Here to follow up acute abdominal pain prompting ED visit as noted below. He is very well appearing on exam. Very muscular - on diet and exercise regimen (was overweight previously). I agree with assessment and plan as noted in fellow note. Kenzie Cobb MD documented in this encounter Plan of Treatment Not on file documented as of this encounter Results * HELICOBACTER PYLORI UREASE (STL) (04/10/2019 12:47 PM APARTMENT MAINTENANCE) Helicobacter pylori Urease Initial Negative Negative 04/11/2019 1:33 PM [facility] Helicobacter pylori Urease Final Negative Negative 04/11/2019 1:33 PM [facility] Comment:This is an appended report. These results have been appended to a previously preliminary verified report. Microbiology GASTRIC ANTRAL BIOPSY SPECIMEN / Unknown Collection / Unknown 04/10/2019 12:47 PM APARTMENT MAINTENANCE 04/10/2019 1:11 PM APARTMENT MAINTENANCE Faith Quispe MD LAB - MICROBIOLOG Y ORDERABLES Performing Organization Address City/[facility]/ZIP Co de Phone Number [facility] [address] [place] [phone] * LIPASE BLOOD (04/10/2019 12:00 PM APARTMENT MAINTENANCE) Lipase 16 10 - 220 U/L 04/10/2019 12:56 PM [facility] Blood BLOOD SPECIMEN / Unknown Venipuncture / Unknown 04/10/2019 12:00 PM APARTMENT MAINTENANCE 04/10/2019 12:20 PM APARTMENT MAINTENANCE Faith Quispe MD LAB - CHEMISTRY O RDERABLES Performing Organization Address City/[facility]/ZIP Co de Phone Number [facility] [address] [place] [phone] * (ABNORMAL) COMPREHENSIVE METABOLIC PANEL (04/10/2019 12:00 PM APARTMENT MAINTENANCE) Glucose 77 70 - 105 mg/dL 04/10/2019 12:56 PM [facility] Sodium 138 136 - 145 mmol/L 04/10/2019 12:56 PM [facility] Potassium 4.3 3.5 - 5.1 mmol/L 04/10/2019 12:56 PM [facility] Chloride 105 98 - 107 mmol/L 04/10/2019 12:56 PM [facility] CO2 25 22 - 29 mmol/L 04/10/2019 12:56 PM [facility] Calcium 10.13 9.08 - 10.48 mg/dL 04/10/2019 12:56 PM [facility] Anion Gap 8 5 - 20 mmol/L 04/10/2019 12:56 PM [facility] BUN 14.2 5.3 - 18.7 mg/dL 04/10/2019 12:56 PM [facility] Creatinine 1.15(H) 0.61 - 1.07 mg/dL 04/10/2019 12:56 PM [facility] Alkaline Phosphatase 62 39 - 139 U/L 04/10/2019 12:56 PM [facility] ALT 17 6 - 46 U/L 04/10/2019 12:56 PM [facility] AST 19 8 - 42 U/L 04/10/2019 12:56 PM [facility] Protein Total 7.6 6.3 - 8.2 gm/dL 04/10/2019 12:56 PM [facility] Albumin 4.8 3.3 - 4.9 gm/dL 04/10/2019 12:56 PM [facility] Bilirubin Total 1.1 0.3 - 1.2 mg/dL 04/10/2019 12:56 PM [facility] eGFR by MDRD >60 >60 mL/min/1.7 3m2 04/10/2019 12:56 PM [facility] eGFR by MDRD >60 >60 mL/min/1.7 3m2 04/10/2019 12:56 PM [facility] Blood BLOOD SPECIMEN / Unknown Venipuncture / Unknown 04/10/2019 12:00 PM [facility] 04/10/2019 12:20 PM [facility] Faith Quispe MD LAB - CHEMISTRY O RDERABLES [facility] [place] [address] * (ABNORMAL) CBC W AUTO DIFFERENTIAL (04/10/2019 12:00 PM [facility]) [facility] WBC 5.6 4.4 - 10.7 x10E9/L 04/10/2019 12:26 PM [facility] WBC Corrected 04/10/2019 12:26 PM [facility] RBC 5.60(H) 3.80 - 5.40 x10E12/L 04/10/2019 12:26 PM [facility] Hemoglobin 17.0 12.0 - 17.6 gm/dL 04/10/2019 12:26 PM [facility] Hematocrit 49.2 35.2 - 51.7 % 04/10/2019 12:26 PM [facility] MCV 87.9 80.7 - 98.3 fl 04/10/2019 12:26 PM [facility] MCH 30.4 26.7 - 34.0 pg 04/10/2019 12:26 PM [facility] MCHC 34.6 30.8 - 35.9 gm/dL 04/10/2019 12:26 PM [facility] Platelet Count 254 153 - 416 x10E9/L 04/10/2019 12:26 PM [facility] RDW-CV 12.0(L) 12.1 - 14.9 % 04/10/2019 12:26 PM [facility] MPV 9.6 9.4 - 12.9 fl 04/10/2019 12:26 PM [facility] Neutrophils % 47.8 44.0 - 73.0 % 04/10/2019 12:26 PM [facility] Lymphocytes % 32.4 20.0 - 43.0 % 04/10/2019 12:26 PM [facility] Monocytes % 6.4 5.0 - 13.0 % 04/10/2019 12:26 PM [facility] Eosinophils % 12.7(H) 0.0 - 6.0 % 04/10/2019 12:26 PM [facility] Basophils % 0.5 0.0 - 2.0 % 04/10/2019 12:26 PM [facility] Immature Granulocytes 0.2 0 - 1 % 04/10/2019 12:26 PM [facility] Neutrophil Absolute 2.67 2.01 - 7.14 x10E9/L 04/10/2019 12:26 PM [facility] Lymphocytes Absolute 1.81 1.07 - 3.94 x10E9/L 04/10/2019 12:26 PM [facility] Monocytes Absolute 0.36 0.26 - 1.07 x10E9/L 04/10/2019 12:26 PM [facility] Eosinophils Absolute 0.71(H) 0 - 0.47 x10E9/L 04/10/2019 12:26 PM [facility] Basophils Absolute 0.03 0 - 0.08 x10E9/L 04/10/2019 12:26 PM [facility] Immature Granulocytes Absolute 0.01 0.00 - 0.06 x10E9/L 04/10/2019 12:26 PM [facility] nRBC Auto 0 /100 WBC 04/10/2019 12:26 PM [facility] Blood BLOOD SPECIMEN / Unknown Venipuncture / Unknown 04/10/2019 12:00 PM APARTMENT MAINTENANCE 04/10/2019 12:20 PM APARTMENT MAINTENANCE Faith Quispe MD LAB - HEMATOLOGY ORDERABLES Performing Organization Address City/State[facility] Co de Phone Number [facility] [address] [place] [address] * EGD (04/10/2019 11:47 AM APARTMENT MAINTENANCE) Report Endoscopy POC _ Patient Name: Lavelle Wells ? Date of : 2000 ?Admit Type: Outpatient Age: 18 ? Gender: Male Race: White ? Attending MD: Kenzie Cobb , Order #: [id number] ? _ Procedure: ? Upper GI endoscopy [...] Procedure Code(s): ? --- Professional --- ? 11874, Esophagogastroduod enoscopy, flexible, transoral; with biopsy, ? single or multiple ? --- Technical --- ? 73722, Esophagogastroduod enoscopy, flexible, transoral; with biopsy, ? [...] gastroenteritis ? R11.0, Nausea CPT copyright 2017 [employer] [place] [employer]. All rights reserved. The codes documented in this report are preliminary and upon floor worker review may be revised to meet current compliance requirements. Dr. Kenzie Cobb Kenzie Cobb, 04/10/2019 1:59:08 PM This report has been signed electronically. Number of Addenda: 0 Note Initiated On: 04/07/2019 11:47 AM Procedure Date: ? 04/10/2019 11:47:00 AM ? This report has been signed electronically. [facility] 04/10/2019 11:4 7 AM APARTMENT MAINTENANCE Faith Quispe MD GI PROCEDURE RICHIE ROBINS Performing Organization Address City/State/[facility] Co de Phone Number [facility] [address] [place] [address] * ENDOSCOPY, COLON, DIAGNOSTIC (04/10/2019 11:46 AM APARTMENT MAINTENANCE) Report Endoscopy POC _ Patient Name: Lavelle Michael ? Date of : 2000 ?Admit Type: Outpatient Age: 18 ? Gender: Male Race: White ? Attending MD: Kenzie Cobb , Order #: [id number] ? _ Procedure: ? Colonoscopy Indications: ? 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 eKnzie Cobb MD (attending); Faith Quispe MD ? [...] Procedure Code(s): ? --- Professional --- ? 99504, Colonoscopy, flexible; with biopsy, single or multiple ? --- Technical --- ? 86958, Colonoscopy, flexible; with biopsy, single or multiple Diagnosis Code(s): ? --- Professional --- ? R10.84, Generalized abdominal pain ? K52.9, Noninfective gastroenteritis and colitis, unspecified ? --- Technical --- ? R10.84, Generalized abdominal pain ? K52.9, Noninfective gastroenteritis and colitis, unspecified CPT copyright 2017 [employer] [place] [employer] [employer]. All rights reserved. The codes documented in this report are preliminary and upon floor worker review may be revised to meet current compliance requirements. Dr. Kenzie Cobb Kenzie Cobb, 04/10/2019 1:59:34 PM This report has been signed electronically. Number of Addenda: 0 Note Initiated On: 04/07/2019 11:46 AM Procedure Date: ? 04/10/2019 11:46:00 AM ? This report has been signed electronically. [facility] 04/10/2019 11:4 6 AM APARTMENT MAINTENANCE Faith Quispe MD GI PROCEDURE RICHIE ROBINS Performing Organization Address City/State/[facility] Co de Phone Number [facility] [address] [place] [address] documented in this encounter Visit Diagnoses Diagnosis Eosinophilic gastroenteritis and colitis- Primary Eosinophilic esophagitis documented in this encounter Care Teams Insurance Checker Relationship Specialty Start Date End Date Laine Sharp MD [address] [facility] [address] [place] [phone] PCP - General Pediatrics 12/31/13 documented as of this encounter
--- OUTSIDE RECORDS SUMMARY | 2024-03-21 22:03 | XMS_ITS | Encounter Summary ---
Author Organization [facility] Address [address] [place] [address] Care Team Providers Care Fire Apparatus Engineer Name Role Phone Laine Sharp MD Primary Care Provider [phone] Reason for Visit * Auth/Cert Specialty Diagnoses / Procedures Referred By Contac t Referred To Contact Diagnoses EE (eosinophilic esophagitis) EE (eosinophilic esophagitis) Procedures ENDOSCOPY GI UPPER WITH BIOPSY Referral ID Status Reason Start Date Expiration Date Visits Re quested Visits Authorized [id number] 1 1 Encounter Details Date Type Department Care Team (Late st Contact Info) Description 10/01/2016 2:15 PM CDT - 10/01/2016 3:00 PM CDT Surgery [facility] - Endoscopy [address] [place] [id number] Kenzie Cobb MD [address] [place] [id number] ENDOSCOPY GI UPPER WITH BIOPSY Surgery Details Date/Time Status Location OR Service Patient Class Case Class Case Type Trauma Case? 10/01/2016 2:15 PM Posted [facility] Endo 03 Gastroenterology Surgery Day Care Elective > 5 days Panel 1 Procedure LRB Anes Op Region Wound Class Comments ENDOSCOPY GI UPPER WITH BIOPSY General Clean Contaminated Surgeon Surgeon Role Service Panel Kenzie Cobb MD Primary Gastroenterology 1 documented in this [...] 10/01/2016 1:1 3 PM CDT Growth Chart: [facility] (Boys, 2-2 0 Years) documented in this [...] SURGERY DISCHARGE SUMMARY Patient ID: Lavelle Michael [id number] y.o. 2000 Discharge Date: 10/01/2016 Discharge [...] Follow Up Instructions: GI office will call [facility] biopsy results Kenzie Cobb MD 10/01/2016 2:59 PM documented in this encounter Discharge Instructions * Discharge Instructions* Zaira Rojo RN - 10/01/2016 2:23 PM CDT If your child has any worsening of their condition, please phone [phone] and ask for the doctor asw/asuw tactical air controller for GI or return to the Emergency [...] CO2, BUN, CREATININE, GLUCOSE, CALCIUM in thelast 62454 hours. No results for input(s): INR in the last 69553 hours. No results for input(s): PTT in the last 04850 hours. Assessment and Plan Risks, benefits and [...] 70 - 105 mg/dL 10/01/2016 3:50 PM T [facility] Sodium 140 136 - 145 mmol/L 10/01/2016 3:50 PM T [facility] Potassium 4.0 3.5 - 5.1 mmol/L 10/01/2016 3:50 PM T [facility] Chloride 106 98 - 107 mmol/L 10/01/2016 3:50 PM [facility] CO2 24 20 - 28 mmol/L 10/01/2016 3:50 PM [facility] Calcium 8.83(L) 9.08 - 10.48 mg/dL 10/01/2016 3:50 PM T [facility] Anion Gap 10 5 - 20 mmol/L 10/01/2016 3:50 PM T [facility] BUN 10.5 5.3 - 18.7 mg/dL 10/01/2016 3:50 PM T [facility] Creatinine 0.89 0.61 - 1.07 mg/dL 10/01/2016 3:50 PM [facility] Alkaline Phosphatase 83(L) 100 - 390 U/L 10/01/2016 3:50 PM [facility] ALT 37 6 - 46 U/L 10/01/2016 3:50 PM CDT [facility] AST 23 3 - 35 U/L 10/01/2016 3:50 PM CDT [facility] Protein Total 6.5 6.3 - 8.2 gm/dL 10/01/2016 3:50 PM CDT [facility] Albumin 3.9 3.3 - 4.9 gm/dL 10/01/2016 3:50 PM CDT [facility] Bilirubin Total 0.4 0.3 - 1.2 mg/dL 10/01/2016 3:50 PM CDT [facility] eGFR by MDRD >60 mL/min/1. 73m2 10/01/2016 3:50 PM CDT [facility] Comment: eGFR calculations are not performed for children under 18 years old. eGFR by MDRD >60 mL/min/1. 73m2 10/01/2016 3:50 PM CDT [facility] Comment: eGFR calculations are not performed for children under 18 years old. Blood BLOOD SPECIMEN / Unknown Venipuncture / Unknown 10/01/2016 2:00 PM CDT 10/01/2016 2:45 PM CDT Kenzie Cobb MD LAB - CHEMISTRY [facility] Organization Address City/State/[facility] Co de Phone Number [facility] [place] [address] * (ABNORMAL) CBC W AUTO DIFFERENTIAL (10/01/2016 2:00 PM CDT) WBC 6.6 4.5 - 11.0 x10E9/L 10/01/2016 2:41 PM CDT [facility] WBC Corrected x10E9/L 10/01/2016 2:41 PM CDT [facility] RBC 4.92 4.50 - 5.30 x10E12/L 10/01/2016 2:41 PM CDT [facility] Hemoglobin 14.6 13.0 - 16.0 gm/dL 10/01/2016 2:41 PM CDT [facility] Hematocrit 41.4 37.0 - 49.0 % 10/01/2016 2:41 PM CDT [facility] MCV 84.1 78.0 - 98.0 fl 10/01/2016 2:41 PM CDT [facility] MCH 29.7 25.0 - 35.0 pg 10/01/2016 2:41 PM [facility] MCHC 35.3 31.0 - 37.0 gm/dL 10/01/2016 2:41 PM [facility] Platelet Count 252 100 - 400 x10E9/L 10/01/2016 2:41 PM [facility] RDW-CV 12.3 11.5 - 14.0 % 10/01/2016 2:41 PM [facility] MPV 10.4(H) 6.0 - 9.5 fl 10/01/2016 2:41 PM [facility] Neutrophils % 47.4 31.0 - 78.0 % 10/01/2016 2:41 PM [facility] Lymphocytes % 34.8 13.0 - 54.0 % 10/01/2016 2:41 PM [facility] Monocytes % 7.4 4.0 - 13.0 % 10/01/2016 2:41 PM [facility] Eosinophils % 9.3(H) 0.0 - 8.0 % 10/01/2016 2:41 PM [facility] Basophils % 0.8 % 10/01/2016 2:41 PM [facility] Immature Granulocytes 0.3 % 10/01/2016 2:41 PM [facility] Neutrophil Absolute 3.15 x10E9/L 10/01/2016 2:41 PM [facility] Lymphocytes Absolute 2.31 x10E9/L 10/01/2016 2:41 PM [facility] Monocytes Absolute 0.49 x10E9/L 10/01/2016 2:41 PM [facility] Eosinophils Absolute 0.62 x10E9/L 10/01/2016 2:41 PM [facility] Basophils Absolute 0.05 x10E9/L 10/01/2016 2:41 PM [facility] Immature Granulocytes Absolute 0.02 x10E9/L 10/01/2016 2:41 PM [facility] nRBC Auto 0 /100 WBC 10/01/2016 2:41 PM [facility] Blood BLOOD SPECIMEN / Unknown Venipuncture / Unknown 10/01/2016 2:00 PM CDT 10/01/2016 2:40 PM CDT Kenzie Cobb MD LAB - HEMATOLOGY ORD ERABLES Performing Organization Address [facility] Co de Phone Number [facility] [address] [place] [address] * HELICOBACTER PYLORI UREASE (STL) (10/01/2016 1:59 PM CDT) Helicobacter pylori Urease Initial Negative Negative 10/02/2016 3:45 PM CDT [facility] Helicobacter pylori Urease Final Negative Negative 10/02/2016 3:45 PM CDT [facility] Comment:This is an appended report. These results have been appended to a previously preliminary verified report. Microbiology GASTRIC ANTRAL BIOPSY SPECIMEN / Unknown Collection / Unknown 10/01/2016 1:59 PM CDT 10/01/2016 2:30 PM CDT Kenzie Cobb MD LAB - MICROBIOLOGY O RDERABLES Performing Organization Address [facility] de Phone Number [facility] [address] [place] [address] * GROSS + MICRO EXAM (STL) (10/01/2016 1:41 PM CDT) Case Report Surgical Pathology Report ? Case: [id number] ? Authorizing Provider: ??Kenzie Cobb MD ?Collected: ? 10/01/2016 01:41 PM ? Ordering Location: ? [facility] ?Received: ?10/01/2016 02:18 PM ? Pathologist: ? Laury Matos MD ? Specimens: ?? A) - Duodenal Biopsy ? B) - Stomach Biopsy ? C) - Esophageal Biopsy, distal ? D) - Esophageal Biopsy, mid ? 10/03/2016 10:44 AM [facility] Final Diagnosis A. DUODENUM BIOPSY: - MILD HISTOLOGIC ALTERATION, SEE DESCRIPTION. B. STOMACH, BIOPSY: - MILD CHRONIC GASTRITIS. C. ESOPHAGUS, DISTAL, BIOPSY: - EOSINOPHILIC ESOPHAGITIS, GREATER THAN 100 EOSINOPHILS/ HPF. D. ESOPHAGUS, MID, BIOPSY: - EOSINOPHILIC ESOPHAGITIS, UP TO 80 EOSINOPHILS/HPF. 10/03/2016 10:44 AM [facility] Clinical History The patient is a 16-year-old boy with a history of eosinophilic esophagitis who underwent upper endoscopy. The findings were linear furrows and significant erosions and erythema in the duodenal bulb. 10/03/2016 10:44 AM [facility] Gross Description The specimens are [...] toto as D1. (ED/dak) 10/03/2016 10:44 AM [facility] Microscopic Description 12 H&E. Sections of [...] mid esophageal biopsy. (SES/na) 10/03/2016 10:44 AM [facility] Disclaimer The performance characteristics of all immunohistochemical and indirect immunofluorescence stains (if any) cited in this report were determined by the Histopathology [facility] of [facility]. Some of these tests were developed by [...] attending (teaching) pathologist. 10/03/2016 10:44 AM CDT [facility] Embedded Images 10/03/2016 10:44 AM CDT [facility] Pathology/Cytology ESOPHAGEAL BIOPSY SPECIMEN / [...] Cobb MD LAB - PATHOLOGY/CYTO LOGY ORDERABLES [facility] [facility] [place] [address] * EGD (10/01/2016 10:23 AM CDT) Report Endoscopy POC _ Patient Name: Lavelle Michael ? Date of : 2000 ?Admit Type: Outpatient Age: 16 ? Gender: Male Attending MD: Kenzie Cobb , ?Order #: [id number] _ Procedure: ? Upper GI endoscopy Indications: [...] Procedure Code(s): ? --- Professional --- ? 28151, Esophagogastroduod enoscopy, flexible, transoral; with biopsy, ? single or multiple ? --- Technical --- ? 56631, Esophagogastroduod enoscopy, flexible, transoral; with biopsy, ? single or multiple Diagnosis Code(s): ? --- Professional --- ? K29.80, Duodenitis without bleeding ? K20.0, Eosinophilic esophagitis ? --- Technical --- ? K29.80, Duodenitis without bleeding ? K20.0, Eosinophilic esophagitis CPT copyright 2015 [employer]. All rights reserved. The codes documented in this report are preliminary and upon power plant operators supervisor review may be revised to meet current compliance requirements. Dr. Kenzie Cobb Kenzie Cobb, 10/01/2016 2:12:40 PM This report has been signed electronically. Number of Addenda: 0 Note Initiated On: 09/28/2016 10:23 AM Procedure Date: ? 10/01/2016 10:23:00 AM ? This report has been signed electronically. [facility] 10/01/2016 10:2 3 AM CDT Kenzie Cobb MD GI PROCEDURE ORDERAB LES Performing Organization Address City/State/[facility] Co de Phone Number [facility] [address] [place] [address] documented in this encounter Visit Diagnoses Diagnosis EE (eosinophilic esophagitis) and Eosinophilic Enterocolitis Eosinophilic esophagitis EE (eosinophilic esophagitis) Eosinophilic esophagitis documented in this encounter Administered [...] RN) documented in this encounter Care Teams Fire Apparatus Engineer Relationship Specialty Start Date End Date Lanie Sharp MD [address] [phone] PCP - General Pediatrics 12/31/13 documented as of this encounter
--- OUTSIDE RECORDS SUMMARY | 2024-03-21 22:03 | XMS_ITS | Encounter Summary ---
Author Organization [facility] Address [address] [facility] [place] [address] Care Team Providers Care Air Traffic Supervisor Name Role Phone Laine Sharp MD Primary Care Provider [phone] Reason for Visit * Reason Onset Date Comments Question 11/07/2016 Encounter Details Date Type Department Care Team (Late st Contact Info) Description 11/07/2016 Telephone [facility] - [address] [place] [address] Kenzie Cobb MD [facility] [place] [address] Question Social History Tobacco Use Types Packs/Day [...] encounter Miscellaneous Notes * Telephone Encounter - Tiffany Monzon RN - 11/07/2016 8:39 AM CDT FMLA paperwork updated and e-mailed to mom per her request. * Telephone Encounter - Kiley Silva - 11/07/2016 8:22 AM CDT Mom calling, requests updated FMLA since appt was rescheduled. documented in this encounter Plan of Treatment Not on file documented as of this encounter Visit Diagnoses Not on filedocumented in this encounter Care Teams Air Traffic Supervisor Relationship Specialty Start Date End Date Laine Sharp MD [address] [place] [phone] PCP - General Pediatrics 12/31/13 documented as of this encounter
--- OUTSIDE RECORDS SUMMARY | 2024-03-21 22:03 | XMS_ITS | Encounter Summary ---
Author Organization [facility] Address [address] [facility] [place] [address] Care Team Providers Care Review Nurse Name Role Phone Laine Sharp MD Primary Care Provider [phone] Reason for Visit * Reason Onset Date Comments Update 11/08/2014 Encounter Details Date Type Department Care Team (Late st Contact Info) Description 11/08/2014 Telephone [facility] - [address] [place] [address] Kenzie Cobb MD [facility] [place] [address] Update Social History Tobacco Use Types Packs/Day [...] Telephone Encounter - Merary Fountain RN - 11/08/2014 9:15 AM CDT Refused nexium refill, overdue for follow up appt and no follow up in system. No answer at home number. documented in this encounter Plan of Treatment Not on file documented as of this encounter Visit Diagnoses Not on filedocumented in this encounter Care Teams Review Nurse Relationship Specialty Start Date End Date Laine Sharp MD [address] [phone] PCP - General Pediatrics 12/31/13 documented as of this encounter
--- OUTSIDE RECORDS SUMMARY | 2024-03-21 22:03 | XMS_ITS | Encounter Summary ---
Author Organization [facility] Address [address] [place] [address] Care Team Providers Care Outside Barrel Lathe Operator Name Role Phone Laine Sharp MD Primary Care Provider [phone] Reason for Referral * Procedure - Closed Specialty Diagnoses / Procedures Referred By Leonard t Referred To Contact Gastroenterology Diagnoses EE (eosinophilic esophagitis) Eosinophilia Procedures ENDOSCOPY, COLON, DIAGNOSTIC Kenzie Cobb MD [address] [place] [id number] Referral ID Status Reason Start Date Expiration Date Visits Re quested Visits Authorized [id number] Closed 01/12/2014 07/11/2014 1 1 RTMENT SPECIALIST * Procedure - Closed Specialty Diagnoses / Procedures Referred By Leonard t Referred To Contact Gastroenterology Diagnoses EE (eosinophilic esophagitis) Eosinophilia Procedures EGD Kenzie Cobb MD [address] [place] [id number] Referral ID Status Reason Start Date Expiration Date Visits Re quested Visits Authorized [id number] Closed 01/12/2014 07/11/2014 1 1 RTMENT SPECIALIST Reason for Visit * Auth/Cert - Closed Specialty Diagnoses / Procedures Referred By Contac t Referred To Contact Diagnoses Abdominal pain, unspecified site Procedures COLONOSCOPY BIOPSY ENDOSCOPY GI UPPER WITH BIOPSY Referral ID Status Reason Start Date Expiration Date Visits Re quested Visits Authorized [id number] Closed 1 1 Encounter Details Date Type Department Care Team (Latest Contact Info) Description 01/22/2014 6:06 AM DEPARTMENT SPECIALIST - 01/22/2014 11:00 AM DEPARTMENT SPECIALIST Hospital Encounter [facility] - Endoscopy [address] [place] [address] Kenzie Cobb MD [address] [place] [address] Surgery General Discharge Disposition: Home or Self [...] Sign Reading Time Taken Comments Blood Pressure 96/54 01/22/2014 10:45 AM DEPARTMENT SPECIALIST Pulse 66 01/22/2014 10:45 AM DEPARTMENT SPECIALIST Temperature 36.7 ??C (98.1 ??F) 01/22/2014 10:[address] Respiratory Rate 14 01/22/2014 10:45 AM DEPARTMENT SPECIALIST Oxygen Saturation 100% 01/22/2014 10:45 AM DEPARTMENT SPECIALIST Inhaled Oxygen Concentration 100% 01/22/2014 1 0:13 AM DEPARTMENT SPECIALIST Weight 48.8 kg (107 lb 8 oz) 01/22/2014 6:44 AM DEPARTMENT SPECIALIST Height - - Body Mass Index - - documented in this encounter Discharge Summaries * Kenzie Cobb MD - 01/22/2014 10:05 AM CST Images from the original note were not included. SAME DAY SURGERY DISCHARGE SUMMARY Patient ID: Lavelle Michael [id number] 13 y.o. 2000 Discharge Date: 01/22/2014 Discharge Diagnoses: 1. EE (eosinophilic esophagitis) and Eosinophilic Enterocolitis 2. Eosinophilia Discharge Condition: Stable Discharge Medication: Please see Discharge Instructions for a complete list of medications. Discharge Procedure Orders Why you were hospitalized Order Specific Question Answer Comments Your discharge diagnosis is Eosinophilic esophagitis [530.13] Procedure information Lavelle had the following procedure performed: Colonoscopy and Esophagogastro duodenoscopy Order Specific Question Answer Comments Your discharge diagnosis is Eosinophilic esophagitis [530.13] Diet instructions Start light diet today (i.e soup, Jell-O, toast). If no nausea or vomiting, may resume normal diet.In case of nausea or vomiting, reduce diet to fluids low in acid (water, sports drinks, white sodas). As you are able to tolerate the fluids, gradually increase your diet. Activity as tolerated Rest today, and increase activity level tomorrow as tolerated. Follow up with provider Order Specific Question Answer Comments Follow Up Instructions: GI office will call with biopsy in 7-10 days Kenzie Cobb MD 01/22/2014 10:05 AM RTMENT SPECIALIST documented in this encounter Discharge Instructions * Discharge Instructions* Bharti Mora RN - 01/22/2014 10:25 AM DEPARTMENT SPECIALIST If your child has any worsening of their condition, please phone [phone] and ask for the doctor welder production line combination for GI or return to the Emergency Department. RTMENT SPECIALIST documented in this encounter Medications at Time of Discharge Medication Sig Dispensed Refills Start Date End Date albuterol HFA (PROVENTIL;VENTOLIN;P ROAIR) 108 (90 BASE) MCG/ACT inhaler Inhale 2 Puffs by mouth every 6 hours as needed. 02/17/2015 esomeprazole (NEXIUM) 40 MG capsule Take 1 Cap by mouth daily before breakfast for 30 days. 30 Cap 3 01/12/2014 06/30/2014 fluticasone hfa (FLOVENT HFA) 220 MCG/ACT inhalerIndications:Eo sinophilic Esophagitis Take 2 puffs twice daily. Take puffs orally while holding breath 1 minute apart, then drink some water. Indications: Eosinophilic Esophagitis 1 Inhaler 6 09/22/2012 02/09/2014 lisdexamfetamine (VYVANSE) 50 MG capsule Take 50 mg by mouth every morning. 07/19/2016 loratadine (CLARITIN) 10 MG tablet Take 10 mg by mouth once daily. 10/01/2016 mometasone (ELOCON) 0.1 % ointmentIndications:E czema Apply to affected area once daily as needed (for red, itchey skin). 15 g 6 02/12/2012 10/17/2016 documented as of this encounter H&P Notes * Kenzie Cobb MD - 01/22/2014 7:44 AM CST Surgical History and Physical Today's Date: 01/22/2014 Lavelle Michael 13 y.o. male Date of Service: 01/22/2014 Planned Procedure: upper endoscopy, colonoscopy Indication for Procedure: abdominal diarrhea, h/o Eosinophilic esophagiits and eosniophlic gastroenteropathy History of Present Illness 13 y/o M with complex history including EoE, EGE increased abdominal pain. No diarrhea. Surveillance endoscopy Prescriptions prior to admission Medication Sig Dispense [...] items are noted in HPI Exam Vitals: 01/22/14 0644 BP: 105/58 Temp: 99.6 ??F Weight: 48.762 kg (107 lb 8 oz) General appearance: alert, cooperative, no distress Lungs: breath sounds normal and symmetric; no rales or wheezes Heart: regular rhythm, normal S1 and S2, without murmurs, gallops or rubs Abdomen: soft without mass, non-tender, with normal bowel sounds Extremities: no clubbing, cyanosis or edema Other pertinent exam: none Data Recent Labs Component Name 05/26/12 1524 05/05/12 0841 01/09/12 1725 WBC 10.6 5.2 7.6 HGB 13.6 14.6 15.4 HCT 38.3 41.3 43.1 PLTCOUNT 272 250 261 Recent Labs Component Name 01/09/12 1725 11/15/11 1652 11/09/11 1901 SODIUM 138 139 141 POTASSIUM 3.7 3.8 4.2 CHLORIDE 106 109* 107 CO2 21 20 16* BUN 6.3 5.1* 8.7 CREATININE 0.60* 0.50* 0.50* GLUCOSE 84 103 137* CALCIUM 10.07 8.76* 8.96 Assessment and Plan Risks, benefits and alternatives discussed with the patient, questions answered. Plan to perform above noted procedure. Kenzie Cobb MD Viewed &/or Printed on 01/22/2014 7:44 AM RTMENT SPECIALIST documented in this encounter Plan of Treatment Not on file documented as of this encounter Procedures Procedure Name Priority Date/Time Associated Diagnosis Comments ESOPHAGOGASTRODUODENOSCOPY (EGD) BIOPSY 01/22/2014 4:45 PM DEPARTMENT SPECIALIST Abdominal pain, unspecified site COLONOSCOPY BIOPSY (ANY METHOD) 01/22/2014 4:45 PM DEPARTMENT SPECIALIST Abdominal pain, unspecified site PATHOLOGY TISSUE EXAM (STL) STAT 01/09 8:47 AM DEPARTMENT SPECIALIST EGD Routine 01/22/2014 7:40 AM DEPARTMENT SPECIALIST EE (eosinophilic esophagitis) and Eosinophilic Enterocolitis Eosinophilia ENDOSCOPY, COLON, DIAGNOSTIC Routine 7:39 AM DEPARTMENT SPECIALIST EE (eosinophilic esophagitis) and Eosinophilic Enterocolitis Eosinophilia documented in this encounter Results * GROSS + MICRO EXAM (STL) (01/22/2014 8:47 AM DEPARTMENT SPECIALIST) Case Report Surgical Pathology Report ? Case: [id number] ? Authorizing Provider: ??Kenzie Cobb MD ? Collected: ? 01/22/2014 08:47 AM ? Ordering Location: ? [facility] ?Received: ?01/22/2014 10:52 AM ? Pathologist: ? Ryan Wei MD ? Specimens: ?? A) - Duodenal Biopsy ? B) - Stomach Biopsy ? C) - Esophageal Biopsy, proximal ? D) - Esophageal Biopsy, mid ? E) - Esophageal Biopsy, distal ? F) - Ileum Terminal ? G) - Colon Ascending ? H) - Cecum ? I) - Colon Descending ? J) - Rectosigmoid ? 01/26/2014 9:52 AM [facility] Final Diagnosis 1) DUODENUM, BIOPSY: - NO PATHOLOGIC DIAGNOSIS. 2) STOMACH, BIOPSY: - MILD CHRONIC GASTRITIS. 3) ESOPHAGUS, PROXIMAL, BIOPSY: - EOSINOPHILIC ESOPHAGITIS, UP TO 25 EOSINOPHILS/HPF. 4) ESOPHAGUS, MID, BIOPSY: - SEVERE EOSINOPHILIC ESOPHAGITIS, UP TO 90 EOSINOPHILS/HPF. 5) ESOPHAGUS, DISTAL, BIOPSY: - EOSINOPHILIC ESOPHAGITIS, UP TO 70 EOSINOPHILS/HPF. 6) ILEUM, TERMINAL, BIOPSY: - MINIMAL HISTOLOGIC ALTERATION, PLEASE SEE DESCRIPTION. 7) COLON, ASCENDING, BIOPSY: - MINIMAL HISTOLOGIC ALTERATION, PLEASE SEE DESCRIPTION. 8) CECUM, BIOPSY: - MINIMAL HISTOLOGIC ALTERATION, PLEASE SEE DESCRIPTION. 9) COLON, DESCENDING, BIOPSY: - MINIMAL HISTOLOGIC ALTERATION, PLEASE SEE DESCRIPTION. 10) LARGES INTESTINE, RECTOSIGMOID, BIOPSY: - MINIMAL HISTOLOGIC ALTERATION, PLEASE SEE DESCRIPTION. ?? COMMENT: ??The patient's previous case ([id number]) has been reviewed in conjunction with the current case, with an increase in severity of the eosinophilic esophagitis. ??There are also conspicuous eosinophilic infiltrates within the large intestinal biopsies; however, the histopathologic significance of this finding is unclear. ??Clinical correlation is advised. 01/26/2014 9:52 AM [facility] Clinical History The patient is a 13-year-old boy with abdominal pain who underwent upper endoscopy and colonoscopy. The finding was linear furrowing. 01/26/2014 9:52 AM [facility] Gross Description The specimens are received fixed in formalin in 10 containers for gross and microscopic examination. ??All containers are labeled with the patient's name, Lavelle Michael. Specimen A, duodenal biopsy, consists of three soft, yellow-santizo tissue fragments, 2 mm to 3 mm in greatest dimension. ??The specimen is submitted in toto as A1. Specimen B, stomach biopsy, consists of two 3 mm soft, yellow-santizo soft tissue fragments submitted in toto as B1. Specimen C, proximal esophageal biopsy, consists of five soft, allen-white soft tissue fragments, less than 1 mm to 1 mm in greatest dimension. ??The specimen is submitted in toto as C1. Specimen D, mid esophageal biopsy, consists of two soft, allen-white tissue fragments, 1 mm to 2 mm in greatest dimension. ??The specimen is submitted in toto as D1. Specimen E, distal esophageal biopsy, consists of four soft, allen-white tissue fragments, less than 1 mm to 3 mm in greatest dimension. ??The specimen is submitted in toto as E1. Specimen F, terminal ileum, consists of two 4 mm soft, yellow-santizo tissue fragments submitted in toto as F1. Specimen G, ascending colon, consists of two soft, yellow-santizo tissue fragments, 3 mm to 4 mm in greatest dimension. ??The specimen is submitted in toto as G1. Specimen H, cecum, consists of three soft, yellow-santizo tissue fragments, 2 mm to 3 mm in greatest dimension. ??The specimen is submitted in toto as H1. Specimen I, descending colon, consists of two soft, yellow-santizo tissue fragments, 2 mm to 4 mm in greatest dimension. ??The specimen is submitted in toto as I1. Specimen J, rectosigmoid, consists of three 3 mm soft, yellow-santizo fragments submitted in toto as J1. ??(MR/pc) 01/26/2014 9:52 AM DEPARTMENT SPECIALIST [facility] Microscopic Description 30 H&E. Sections of the duodenal biopsy show fragments of unremarkable duodenal mucosa with preserved villous architecture. Sections of the stomach biopsy show fragments of antral-type gastric mucosa containing a mile lymphoplasmacytic infiltrate within the lamina propria. ??No intestinal metaplasia is seen. ??Also within the lamina propria, there is a minimal eosinophilic infiltrate, with up to three eosinophils per high-power field. Sections of the proximal, mid, and distal esophageal biopsies show variable fragments of stratified squamous epithelium with pronounced spongiosis, basal cell hyperplasia, and elongation of the lamina propria papillae. ??The mucosal fragments are involved by an eosinophilic infiltrate comprising intact and degranulating eosinophils. ??Maximum eosinophil count per high-power field (400x magnification) are as follows: ?? Proximal, 25/HPF. Mid esophageal, greater than 100/HPF. Distal esophageal, 70/HPF. Sections of the terminal ileum biopsy show fragments of small intestinal mucosa with preserved villous architecture as well as conspicuous lymphoid aggregates within the lamina propria. ??There are up to 10 eosinophils per high-power field (400x magnification). ?? Sections of the ascending colon, cecum, descending colon, and rectosigmoid biopsies show variable fragments of intestinal mucosa with preserved crypt architecture. ??All large intestinal biopsies excluding the ascending colon biopsy exhibit prominent lymphoid aggregates within the lamina propria. ??The lamina propria is involved by a variable eosinophilic infiltrate, with maximum eosinophil counts per high-power field (400x magnification) are as follows: ?? Ascending colon, 30/HPF. Cecum, 50/HPF. Descending colon, 20/HPF. Rectosigmoid , 20/HPF. ?? (SS/pc) 01/26/2014 9:52 AM [facility] Disclaimer The performance characteristics of all immunohistochemical and indirect immunofluorescence stains (if any) cited in this report were determined by the [facility] of [facility] in compliance with CLIA `88 regulations. Some of these tests rely on the use of analyte-specific reagents and are subject to specific labeling requirements by the FDA. Such tests were developed by the [facility] of [facility] and have not been cleared or approved by the FDA. The FDA has determined that such clearance or approval is not necessary. These tests are used for clinical purposes and should not be regarded as investigational or for research. This case has been personally reviewed and interpreted by the attending (teaching) pathologist. 01/26/2014 9:52 AM [facility] Pathology/Cytology DUODENAL BIOPSY SPECIMEN / Unknown 01/22/2014 8:47 AM DEPARTMENT SPECIALIST 01/22/2014 10:52 AM DEPARTMENT SPECIALIST Comment:unknown Miscellaneous samples (specimen) BIOPSY OF STOMACH / Unknown 01/22/2014 8:47 AM DEPARTMENT SPECIALIST 01/22/2014 10:52 AM DEPARTMENT SPECIALIST Comment:unknown Miscellaneous samples (specimen) ESOPHAGEAL BIOPSY SPECIMEN / Unknown 01/22/2014 8:48 AM DEPARTMENT SPECIALIST 01/22/2014 10:52 AM DEPARTMENT SPECIALIST Comment:unknown Miscellaneous samples (specimen) ESOPHAGEAL BIOPSY SPECIMEN / Unknown 01/22/2014 9:23 AM DEPARTMENT SPECIALIST 01/22/2014 10:52 AM DEPARTMENT SPECIALIST Comment:unknown Miscellaneous samples (specimen) ESOPHAGEAL BIOPSY SPECIMEN / Unknown 01/22/2014 9:23 AM DEPARTMENT SPECIALIST 01/22/2014 10:52 AM DEPARTMENT SPECIALIST Comment:unknown Miscellaneous samples (specimen) TERMINAL ILEUM RESECTION SPECIMEN / Unknown 01/22/2014 9:56 AM DEPARTMENT SPECIALIST 01/22/2014 10:52 AM DEPARTMENT SPECIALIST Comment:unknown Miscellaneous samples (specimen) ASCENDING COLON STRUCTURE / Unknown 01/22/2014 9:57 AM DEPARTMENT SPECIALIST 01/22/2014 10:52 AM DEPARTMENT SPECIALIST Comment:unknown Miscellaneous samples (specimen) CECUM STRUCTURE / Unknown 01/22/2014 9:57 AM DEPARTMENT SPECIALIST 01/22/2014 10:52 AM DEPARTMENT SPECIALIST Comment:unknown Miscellaneous samples (specimen) DESCENDING COLON STRUCTURE / Unknown 01/22/2014 9:58 AM DEPARTMENT SPECIALIST 01/22/2014 10:52 AM DEPARTMENT SPECIALIST Comment:unknown Miscellaneous samples (specimen) ENTIRE RECTOSIGMOID / Unknown 01/22/2014 9:58 AM DEPARTMENT SPECIALIST 01/22/2014 10:52 AM DEPARTMENT SPECIALIST Comment:unknown Kenzie Cobb MD LAB - PATHOLOGY/CYTO LOGY ORDERABLES [facility] [address] [place] [address] * EGD (01/22/2014 7:40 AM DEPARTMENT SPECIALIST) Report Endoscopy POC _ Patient Name: Lavelle Wells ?Gender: Male ?Date of : 2000 Age: 13 ? Admit Type: Outpatient Attending MD: Kenzie Cobb, ? Order #: [id number] _ Procedure: ? Upper GI endoscopy Indications: ? Upper abdominal pain, Follow-up of eosinophilic esophagitis Providers: ? Kenzie Servin MD: ?Laine Sharp MD Medicines: ? General [...] Procedure Code(s): ? --- Professional --- ? 02954, Esophagogastrodu odenoscopy, flexible, transoral; with biopsy, ? single or multiple ? --- Technical --- ? 00944, Esophagogastrodu odenoscopy, flexible, transoral; with biopsy, ? single or multiple Diagnosis Code(s): ? --- Professional --- ? 530.9, Unspecified disorder of esophagus ? 789.09, Abdominal pain, other specified site ? 530.13, Eosinophilic esophagitis ? --- Technical --- ? 530.9, Unspecified disorder of esophagus ? 789.09, Abdominal pain, other specified site ? 530.13, Eosinophilic esophagitis CPT copyright 2013 [employer]. All rights reserved. The codes documented in this report are preliminary and upon fish butcher review may be revised to meet current compliance requirements. Dr. Kenzie Cobb Kenzie Cobb, 01/22/2014 9:30 AM This report has been signed electronically. Number of Addenda: 0 Note Initiated On: 01/21/2014 7:40 AM Procedure Date: ? 01/22/2014 7:40:00 AM ? This report has been signed electronically. [facility] 01/22/2014 7:40 AM DEPARTMENT SPECIALIST Kenzie Cobb MD GI PROCEDURE ORDERAB LES [facility] [address] [place] [address] * ENDOSCOPY, COLON, DIAGNOSTIC (01/22/2014 7:39 AM DEPARTMENT SPECIALIST) Report Endoscopy POC _ Patient Name: Lavelle Alec ?Gender: Male ?Date of : 2000 Age: 13 ? Admit Type: Outpatient Attending MD: Kenzie Cobb, ? Order #: [id number] _ Procedure: ? Colonoscopy Indications: ? Generalized [...] Procedure Code(s): ? --- Professional --- ? 91143, Colonoscopy, flexible, proximal to splenic flexure; with biopsy, ? single or multiple ? --- Technical --- ? 57370, Colonoscopy, flexible, proximal to splenic flexure; with biopsy, ? single or multiple Diagnosis Code(s): ? --- Professional --- ? 789.07, Abdominal pain, generalized ? 787.91, Diarrhea ? --- Technical --- ? 789.07, Abdominal pain, generalized ? 787.91, Diarrhea CPT copyright 2013 [employer]. All rights reserved. The codes documented in this report are preliminary and upon fish butcher review may be revised to meet current compliance requirements. Dr. Kenzie Cobb Kenzie Cobb, 01/22/2014 10:04 AM This report has been signed electronically. Number of Addenda: 0 Note Initiated On: 01/21/2014 7:39 AM Procedure Date: ? 01/22/2014 7:39:00 AM ? This report has been signed electronically. [facility] 01/22/2014 7:39 AM DEPARTMENT SPECIALIST Kenzie Cobb MD GI PROCEDURE ORDERAB LES Performing Organization Address City/State/[facility] Co de Phone Number [facility] [address] [place] [address] documented in this encounter Visit Diagnoses Diagnosis EE (eosinophilic esophagitis) and Eosinophilic Enterocolitis Eosinophilic esophagitis Eosinophilia documented in this encounter Administered Medications Inactive Administered Medications - up to 3 most recent administrations Medication Order MAR Action Action Date Dose Rate Site isolyte-S pH 7.4 infusion 75 mL/hr, Intravenous, POST-OP CONTINUOUS, Starting on Sat01/22/14 at 1015, Until Sat01/22/14 at 1200, PACU Current Rate 01/22/2014 10:05 AM DEPARTMENT SPECIALIST 75 mL/hr 75 mL/hr lidocaine (LMX 4) 4 % cream Topical, ONCE, 1 dose, On Sat01/22/14 at 0630, Apply to bilateral hands . WASTE DISPOSAL INSTRUCTIONS: Black Bin Disposal required. $ Given 01/22/2014 6:42 AM DEPARTMENT SPECIALIST documented in this encounter Active and Recently Administered Medications Times are shown in DEPARTMENT SPECIALIST. Scheduled Medication Order 01/20/2014 01/21/2014 01/22/2014 lidocaine (LMX 4) 4 % cream (COMPLETED) Topical, ONCE, 1 dose, On Sat01/22/14 at 0630, Apply to bilateral hands . WASTE DISPOSAL INSTRUCTIONS: Black Bin Disposal required. 0642 ($ Given - Prov ider: Franci Byrd RN) Continuous Medication Order 01/20/2014 01/21/2014 01/22/2014 isolyte-S pH 7.4 infusion (CANCELED) 75 mL/hr, Intravenous, POST-OP CONTINUOUS, Starting on Sat01/22/14 at 1015, Until Sat01/22/14 at 1200, PACU 1005 (Current Rate - Provider: Bharti Mora RN)1015 (Due)1048 (Stopped - Provider: Bharti Mora RN) documented in this encounter Care Teams Outside Barrel Lathe Operator Relationship Specialty Start Date End Date Laine Sharp MD [address] [id number] PCP - General Pediatrics 12/31/13 documented as of this encounter
--- OUTSIDE RECORDS SUMMARY | 2024-03-21 22:03 | XMS_ITS | Encounter Summary ---
Author Organization [facility] Address [address] [place] [address] Care Team Providers Care Bird Trapper Name Role Phone Laine Sharp MD Primary Care Provider Reason for Referral * Procedure (Routine) - Closed Specialty Diagnoses / Procedures Referred By Leonard gonzalez Referred To Contact Gastroenterology Diagnoses Eosinophilic colitis Procedures ENDOSCOPY, COLON, DIAGNOSTIC Kenzie Cobb MD [address] [place] [phone] Referral ID Status Reason Start Date Expiration Date Visits Re quested Visits Authorized [id number] Closed 10/09/2016 04/07/2017 1 1 Reason for Visit * Auth/Cert Specialty Diagnoses / Procedures Referred By Leonard gonzalez Referred To Contact Diagnoses Abdominal pain, unspecified location Abdominal pain, unspecified location Procedures COLONOSCOPY BIOPSY Referral ID Status Reason Start Date Expiration Date Visits Re quested Visits Authorized [id number] 1 1 Encounter Details Date Type Department Care Team (Latest Contact Info) Description 11/16/2016 10:33 AM CDT - 11/16/2016 1:39 PM CDT Hospital Encounter [facility] - Endoscopy [address] [place] [id number] Kenzie Cobb MD [address] [place] [phone] Surgery General Discharge Disposition: Home or Self [...] 11/16/2016 10: 45 AM CDT Growth Chart: [facility] (Boys, 2-2 0 Years) documented in [...] SURGERY DISCHARGE SUMMARY Patient ID: Lavelle Michael [id number] 16 y.o. 2000 Discharge Date: 11/16/2016 Discharge [...] Case Report Surgical Pathology Report ? Case: [id number] ? Authorizing Provider: ??Stuart Miller MD ? Collected: ? 11/16/2016 12:05 PM ? Ordering Location: ? ENDOSCOPY SERVICES ?Received: ?11/16/2016 01:49 PM ? Pathologist: ? Ryan Wei MD ? Specimens: ?? A) - Polyp Rectal ? B) - Ileum Biopsy ? C) - Colon Ascending Biopsy ? D) - Colon Descending Biopsy ? E) - Rectal Biopsy ? 11/30/2016 5:10 AM CDT [facility] Final Diagnosis A. RECTUM, RECTAL POLYP, BIOPSY: -BENIGN POLYP WITH FEATURES OF MUCOSAL PROLAPSE POLYP. -SEE MICROSCOPIC DESCRIPTION. B. ILEUM, BIOPSY: - NO PATHOLOGIC DIAGNOSIS C. COLON, ASCENDING, BIOPSY: - MILD HISTOLOGIC ALTERATION. - SEE MICROSCOPIC DESCRIPTION D. COLON, DESCENDING, BIOPSY: - NO PATHOLOGIC DIAGNOSIS E. RECTUM, BIOPSY: - NO PATHOLOGIC DIAGNOSIS 11/30/2016 5:10 AM [facility] Clinical History The patient is a 16-year-old boy with abdominal pain and eosinophilia who underwent colonoscopy. The finding was a small rectal polyp. 11/30/2016 5:10 AM [facility] Gross Description The specimens are received [...] toto as E1. (OEM/ns) 11/30/2016 5:10 AM [facility] Microscopic Description 20 H&E, 1 SMA [...] large intestinal mucosa. (NK/MAG/ns) 11/30/2016 5:10 AM [facility] Disclaimer The performance characteristics of all immunohistochemical and indirect immunofluorescence stains (if any) cited in this report were determined by the Histopathology Laboratory of [facility]. Some of these tests were developed by [...] attending (teaching) pathologist. 11/30/2016 5:10 AM CDT [facility] Embedded Images 11/30/2016 5:10 AM CDT [facility] Pathology/Cytology RECTAL POLYP / Unknown [...] - PATHOLOGY/CYT OLOGY ORDERABLES Performing Organization Address City/State/[facility] Co de Phone Number [facility] [address] [place] [address] * ENDOSCOPY, COLON, DIAGNOSTIC (11/16/2016 6:37 AM CDT) Report Endoscopy POC _ Patient Name: Lavelle Michael ? Date of : 2000 ?Admit Type: Outpatient Age: 16 ? Gender: Male Attending MD: Stuart Miller MD ??Order #: [id number] _ Procedure: ? Colonoscopy Indications: ? Suspected [...] Procedure Code(s): ? --- Professional --- ? 90413, Colonoscopy, flexible; with biopsy, single or multiple ? --- Technical --- ? 18916, Colonoscopy, flexible; with biopsy, single or multiple Diagnosis Code(s): ? --- Professional --- ? K62.1, Rectal polyp ? --- Technical --- ? K62.1, Rectal polyp CPT copyright 2015 [employer]. All rights reserved. The codes documented in this report are preliminary and upon display associate review may be revised to meet current compliance requirements. Dr. Stuart Miller Stuart Miller MD 11/16/2016 1:19:02 PM This report has been signed electronically. Number of Addenda: 0 Note Initiated On: 11/16/2016 6:37 AM Procedure Date: ? 11/16/2016 6:37:07 AM ? This report has been signed electronically. [facility] 11/16/2016 6:37 AM CDT Kenzie Cobb MD GI PROCEDURE ORDERAB LES Performing Organization Address City/State/[facility] Co de Phone Number [facility] [address] [place] [address] documented in this encounter Visit Diagnoses Diagnosis Eosinophilic colitis Abdominal pain, unspecified location Abnormal weight loss Loss of weight Eosinophilia Rectal polyp Anal and rectal polyp documented in this encounter Administered Medications Inactive [...] anesthesia) documented in this encounter Care Teams Bird Trapper Relationship Specialty Start Date End Date Laine Sharp MD [address] [phone] PCP - General Pediatrics 12/31/13 documented as of this encounter
--- OUTSIDE RECORDS SUMMARY | 2024-03-21 22:03 | XMS_ITS | Encounter Summary ---
Author Organization [facility] Address [address] [place] [address] Care Team Providers Care Customer Project Manager Name Role Phone Lanny Hewitt MD Primary Care Provider [phone] Reason for Visit * Reason Onset Date Comments Question 07/20/2013 Encounter Details Date Type Department Care Team (Late st Contact Info) Description 07/20/2013 Telephone [facility] Pediatrics - GI [address] [place] [address] Kenzie Cobb MD [address] [place] [address] Question Social History Tobacco Use Types Packs/Day [...] Telephone Encounter - Blossom Lujan RN - 07/20/2013 1:48 PM CDT Pt currently taking nexium powder packets, but dad states that pt can now swallow pills & wouldprefer that Rx be changed. Looks like pt is due to be seen--discussed with Dr Cobb & ok to refill. Med escribed to preferred pharmacy. * Telephone Encounter - Kiley Silva - 07/20/2013 1:02 PM CDT Dad calling with a question. documented in this encounter Plan of Treatment Not on file documented as of this encounter Visit Diagnoses Not on filedocumented in this encounter Care Teams Customer Project Manager Relationship Specialty Start Date End Date Lanny Hewitt MD PCP - General Pediatrics 11/09/11 12/30/13 documented as of this encounter
--- OUTSIDE RECORDS SUMMARY | 2024-03-21 22:03 | XMS_ITS | Encounter Summary ---
Author Organization [facility] Address [address] [place] [address] Care Team Providers Care Training And Documentation Specialist Name Role Phone Lanny Hewitt MD Primary Care Provider [phone] Reason for Referral * - Closed Specialty Diagnoses / Procedures Referred By Leonard gonzalez Referred To Contact Gastroenterology Diagnoses Diarrhea Abdominal pain, generalized Procedures ENDOSCOPY, COLON, DIAGNOSTIC Kenzie Cobb MD [address] [place] [address] Referral ID Status Reason Start Date Expiration Date Visits Re quested Visits Authorized [id number] Closed 01/29/2013 07/28/2013 1 1 ICE DESK ANALYST * - Closed Specialty Diagnoses / Procedures Referred By Leonard gonzalez Referred To Contact Gastroenterology Diagnoses Diarrhea Abdominal pain, generalized Procedures EGD Kenzie Cobb MD [address] [place] [address] 21144 Referral ID Status Reason Start Date Expiration Date Visits Re quested Visits Authorized [id number] Closed 01/29/2013 07/28/2013 1 1 ICE DESK ANALYST Reason for Visit * Auth/Cert - Closed Specialty Diagnoses / Procedures Referred By Leonard gonzalez Referred To Contact Diagnoses EE (eosinophilic esophagitis) Procedures COLONOSCOPY BIOPSY ENDOSCOPY GI UPPER WITH BIOPSY Referral ID Status Reason Start Date Expiration Date Visits Re quested Visits Authorized [id number] Closed 1 1 Encounter Details Date Type Department Care Team (Latest Contact Info) Description 02/20/2013 7:11 AM SERVICE DESK ANALYST - 02/20/2013 12:06 PM SERVICE DESK ANALYST Hospital Encounter [facility] - Endoscopy [address] [place] [address] Kenzie Cobb MD [address] [place] [address] Surgery General Discharge Disposition: Home or Self [...] Sign Reading Time Taken Comments Blood Pressure 101/54 02/20/2013 11:45 AM SERVICE DESK ANALYST Pulse 61 02/20/2013 11:45 AM SERVICE DESK ANALYST Temperature 36.7 ??C (98 ??F) 02/20/2013 10: 20 AM SERVICE DESK ANALYST Respiratory Rate 20 02/20/2013 11:4 5 AM SERVICE DESK ANALYST Oxygen Saturation 100% 02/20/2013 11: 45 AM SERVICE DESK ANALYST Inhaled Oxygen Concentration - - Weight 41.2 kg (90 lb 13.3 oz) 02/20/2013 8:00 A M SERVICE DESK ANALYST Height 154 cm (5' 0.63 ) 02/20/2013 8:00 AM SERVICE DESK ANALYST Body Mass Index 17.37 02/20/2013 8:00 AM SERVICE DESK ANALYST Body Mass Index Percentile 24.98% 02/20/2013 8:0 0 AM SERVICE DESK ANALYST Growth Chart: CDC (Boys, 2-2 0 Years) documented in this encounter Discharge Summaries * Kenzie Cobb MD - 02/20/2013 10:24 AM CST Images from the original note were not included. SAME DAY SURGERY DISCHARGE SUMMARY Patient ID: Lavelle Michael [id number] 12 y.o. 2000 Discharge Date: Discharge Diagnoses: 1. Diarrhea 2. Abdominal pain, generalized 3. EE (eosinophilic esophagitis) and Eosinophilic Enterocolitis 4. ADHD (attention deficit hyperactivity disorder) 5. Eosinophilia 6. Eczema 7. Allergic rhinitis 8. Food allergy Discharge Condition: Stable Discharge Medication: Please see Discharge Instructions for a complete list of medications. Discharge Procedure Orders DISCHARGE ACTIVITY RESTRICTIONS Your child has just completed a procedure requiring sedation. Do not leave your child unattended today. Although your child may be awake and alert at the time of discharge, the effects of the medication may be present for up to 4 - 6 hours, unless otherwise noted. Protect your child from falls. A quiet day is recommended. Patient should not drive a car or operate heavy machinery, use power tools or the stove to cook, or make legal decisions for 24 hours. GENERAL ANESTHESIA /IV SEDATION INSTRUCTIONS For the remainder of the day, plan to relax. A feeling of dizziness, light- headedness or drowsinessis not unusual. Move cautiously, fast movements can make this feeling worse. If you have been lyingdown, sit up slowly and pause briefly before standing. We strongly suggest that a responsible adultbe with you until tomorrow AM for your comfort and safety. DISCHARGE GENERAL INSTRUCTIONS Your throat may be slightly sore. This should disappear within 24 hours. Use of throat lozenges mayhelp. DISCHARGE GENERAL INSTRUCTIONS You may have cramping in the abdomen or feel slightly bloated because of air insterted during the procedure. This should pass shortly and should not cause any problems. DISCHARGE GENERAL INSTRUCTIONS You may have slight tenderness and/or redness at the intravenous medication site for 24 to 48 hours. You may apply a warm washcloth. DISCHARGE GENERAL INSTRUCTIONS Small traces of blood my be noted if biopsies are taken or polyps removed. DISCHARGE GENERAL INSTRUCTIONS If your child has any worsening of his/her condition, please call the GI office [phone]. Afterhours, call the exchange at [phone]. SPECIAL INSTRUCTIONS Please allow 10-14 days for biopsy results to be finalized. Follow up in GI clinic in 6 months Kenzie Cobb MD 02/20/2013 10:25 AM ICE DESK ANALYST documented in this encounter Discharge Instructions * Discharge Instructions* Jenna Araujo RN - 02/20/2013 10:28 AM SERVICE DESK ANALYST Discharge Instructions for: Lavelle Michael Discharge Procedure Orders DISCHARGE ACTIVITY RESTRICTIONS Your child has just completed a procedure requiring sedation. Do not leave your child unattended today. Although your child may be awake and alert at the time of discharge, the effects of the medication may be present for up to 4 - 6 hours, unless otherwise noted. Protect your child from falls. A quiet day is recommended. Patient should not drive a car or operate heavy machinery, use power tools or the stove to cook, or make legal decisions for 24 hours. GENERAL ANESTHESIA /IV SEDATION INSTRUCTIONS For the remainder of the day, plan to relax. A feeling of dizziness, light- headedness or drowsinessis not unusual. Move cautiously, fast movements can make this feeling worse. If you have been lyingdown, sit up slowly and pause briefly before standing. We strongly suggest that a responsible adultbe with you until tomorrow AM for your comfort and safety. DISCHARGE GENERAL INSTRUCTIONS Your throat may be slightly sore. This should disappear within 24 hours. Use of throat lozenges mayhelp. DISCHARGE GENERAL INSTRUCTIONS You may have cramping in the abdomen or feel slightly bloated because of air insterted during the procedure. This should pass shortly and should not cause any problems. DISCHARGE GENERAL INSTRUCTIONS You may have slight tenderness and/or redness at the intravenous medication site for 24 to 48 hours. You may apply a warm washcloth. DISCHARGE GENERAL INSTRUCTIONS Small traces of blood my be noted if biopsies are taken or polyps removed. DISCHARGE GENERAL INSTRUCTIONS If your child has any worsening of his/her condition, please call the GI office [phone]. Afterhours, call the exchange at [phone]. SPECIAL INSTRUCTIONS Please allow 10-14 days for biopsy results to be finalized. Follow up in GI clinic in 6 months The following belonging have been returned to you Clothing Clothing: Yes Secured: Shirt;Pants;Jacket/Coat;Footwear Jewelry Jewelry: None Electronics Electronic Items: None Dentures Dentures/Retainers: None Vision Visual Aids: Yes Glasses: With Patient Hearing Aids Hearing Aids: None Equipment/Assistive Devices Equipment with Patient: None Home Medications Home Medications: None Miscellaneous Belongings Miscellaneous Items: None Monetary Monetary Items: None If your child has any worsening of their condition, please phone [phone] and ask for the doctor conveyor operator for DR. CURIEL or return to the Emergency Department. 02/20/2013 ICE DESK ANALYST * Discharge Instructions* Document, Scanned - 02/24/2013 5:13 AM SERVICE DESK ANALYST ICE DESK ANALYST documented in this encounter Medications at Time of Discharge Medication Sig Dispensed Refills Start Date End Date albuterol HFA (PROVENTIL;VENTOLIN;P ROAIR) 108 (90 BASE) MCG/ACT inhaler Inhale 2 Puffs by mouth every 6 hours as needed. 02/17/2015 amphetamine-dextroamp hetamine (ADDERALL) 5 MG tablet Take 5 mg by mouth every morning. 01/12/2014 cetirizine (ZYRTEC ALLERGY) 10 MG tablet Take 1 Tab by mouth at bedtime. 30 Tab 5 02/12/2012 01/12/2014 esomeprazole (NEXIUM) 10 MG packet Take 1 Packet by mouth 2 times daily,before breakfast and supper. 60 Packet 1 02/11/2013 07/20/2013 fluticasone hfa (FLOVENT HFA) 220 MCG/ACT inhalerIndications:Eo sinophilic Esophagitis Take 2 puffs twice daily. Take puffs orally while holding breath 1 minute apart, then drink some water. Indications: Eosinophilic Esophagitis 1 Inhaler 6 09/22/2012 02/09/2014 lisdexamfetamine (VYVANSE) 40 MG capsule Take 40 mg by mouth once daily. 01/12/2014 mometasone (ELOCON) 0.1 % ointmentIndications:E czema Apply to affected area once daily as needed (for red, itchey skin). 15 g 6 02/12/2012 10/17/2016 documented as of this encounter H&P Notes * Kenzie Cobb MD - 02/20/2013 8:31 AM CST Surgical History and Physical Today's Date: 02/20/2013 Lavelle Michael 12 y.o. 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 Doing well. No maintenance meds aside from acid supperssion. Asymptomatic. Prescriptions prior to admission Medication Status Sig Dispense Refill ??? esomeprazole (NEXIUM) 10 MG packet Active Take 1 Packet by mouth 2 times daily,before breakfastand supper. 60 Packet 1 ??? lisdexamfetamine (VYVANSE) 40 MG capsule Active Take 40 mg by mouth once daily. ??? amphetamine-dextroamphetamine (ADDERALL) 5 MG tablet Active Take 5 mg by mouth every morning. ??? fluticasone hfa (FLOVENT HFA) 220 MCG/ACT [...] by mouth every 6 hours as needed. Allergies Allergen Reactions ??? Milk Protein ??? Other CLEAR TAPE CAUSED IRRITATION. PLEASE USE CLOTH TAPE ??? Peanut-Derived ??? Wheat Review of Systems Pertinent items are noted in HPI Exam There were no vitals filed for this visit. General appearance: alert, cooperative, no distress Lungs: breath sounds normal and symmetric; no rales or wheezes Heart: regular rhythm, normal S1 and S2, without murmurs, gallops or rubs Abdomen: soft without mass, non-tender, with normal bowel sounds Extremities: no clubbing, cyanosis or edema Other pertinent exam: none Data Component Name 05/26/12 1524 05/05/12 0841 01/09/12 1725 WBC 10.6 5.2 7.6 HGB 13.6 14.6 15.4 HCT 38.3 41.3 43.1 PLTCOUNT 272 250 261 Component Name 01/09/12 1725 11/15/11 1652 11/09/11 1901 SODIUM 138 139 141 POTASSIUM 3.7 3.8 4.2 CHLORIDE 106 109* 107 CO2 21 20 16* BUN 6.3 5.1* 8.7 CREATININE 0.60* 0.50* 0.50* GLUCOSE 84 103 137* CALCIUM 10.07 8.76* 8.96 Assessment and Plan Risks, benefits and alternatives discussed with the patient, questions answered. Plan to perform above noted procedure. Kenzie Cobb MD ICE DESK ANALYST documented in this encounter Procedure Notes * Document, Scanned - 02/24/2013 5:13 AM CSTAssociated Order(s): PATHOLOGY/CYTOLOGY REPORT ORDER ICE DESK ANALYST * Kenzie Cobb MD - 02/20/2013 10:19 AM CSTAssociated Order(s): ENDOSCOPY, COLON, DIAGNOSTIC ICE DESK ANALYST * Kenzie Cobb MD - 02/20/2013 9:06 AM CSTAssociated Order(s): EGD ICE DESK ANALYST documented in this encounter Miscellaneous Notes * Miscellaneous Scans - Document, Scanned - 02/24/2013 5:13 AM CST ICE DESK ANALYST * Miscellaneous Scans - Document, Scanned - 02/24/2013 5:12 AM CST ICE DESK ANALYST documented in this encounter Plan of Treatment Not on file documented as of this encounter Procedures Procedure Name Priority Date/Time Associated Diagnosis Comments PATHOLOGY/CYTOLOGY REPORT ORDER 02/24/2013 5:13 AM SERVICE DESK ANALYST ESOPHAGOGASTRODUODENOSCOPY (EGD) BIOPSY 02/20/2013 4:30 PM SERVICE DESK ANALYST EE (eosinophilic esophagitis) COLONOSCOPY BIOPSY (ANY METHOD) 02/20/2013 4:30 PM SERVICE DESK ANALYST EE (eosinophilic esophagitis) PATHOLOGY TISSUE EXAM (STL) STAT 02/08 8:53 AM SERVICE DESK ANALYST Diarrhea Abdominal pain, generalized EE (eosinophilic esophagitis) and Eosinophilic Enterocolitis ADHD (attention deficit hyperactivity disorder) Eosinophilia Eczema Allergic rhinitis Food allergy ENDOSCOPY, COLON, DIAGNOSTIC Routine 6:58 AM SERVICE DESK ANALYST Diarrhea Abdominal pain, generalized EGD Routine 02/20/2013 6:57 AM SERVICE DESK ANALYST Diarrhea Abdominal pain, generalized documented in this encounter Results * PATHOLOGY/CYTOLOGY REPORT ORDER (02/24/2013 5:13 AM SERVICE DESK ANALYST) Narrative 02/24/2013 5:13 AM SERVICE DESK ANALYST Ordered by an unspecified provider. Transcriptions Document, Scanned - 02/24/2013 5:13 AM CST Scanned Document LAB - PATHOLOGY/CYTO LOGY ORDERABLES * GROSS + MICRO EXAM (STL) (02/20/2013 8:53 AM SERVICE DESK ANALYST) Case Report Surgical Pathology Report ? Case: [id number] ? Authorizing Provider: ??Kenzie Cobb MD ? Ordering Provider: ?? Kenzie Cobb MD ? Ordering Location: ? ENDOSCOPY SERVICES ?Collected: ? 02/20/2013 ??8:53 AM ? Pathologist: ? Matilde Vo, MD ? Received: ?02/20/2013 10:34 AM ?Signed Out: ?02/23/2013 11:04 AM (Final) ? Specimens: ?? A) - Esophagus, Mid ? B) - Esophagus, Distal ? C) - Stomach ? D) - Duodenum ? E) - Cecum ? F) - Colon, Right ? G) - Colon, Left ? H) - Rectosigmoid ? 02/23/2013 11:04 AM SERVICE DESK ANALYST [facility] Final Diagnosis A. ESOPHAGUS, MID, BIOPSY: - EOSINOPHILIC ESOPHAGITIS - FOCALLY, APPROXIMATELY 40 EOSINOPHILS PER HIGH-POWER FIELD B. ESOPHAGUS, DISTAL, BIOPSY: - EOSINOPHILIC ESOPHAGITIS - FOCALLY, APPROXIMATELY 60 EOSINOPHILS PER HIGH POWER FIELD C. STOMACH, BIOPSY: - MILD CHRONIC INFLAMMATION D. DUODENUM, BIOPSY: - NO HISTOPATHOLOGIC ABNORMALITY E. CECUM, BIOPSY: - NO HISTOPATHOLOGIC ABNORMALITY F. COLON, RIGHT, BIOPSY: - NO HISTOPATHOLOGIC ABNORMALITY G. COLON, LEFT, BIOPSY: - NO HISTOPATHOLOGIC ABNORMALITY H. COLON, RECTOSIGMOID, BIOPSY: - NO HISTOPATHOLOGIC ABNORMALITY 02/23/2013 11:04 AM 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 The patient underwent surveillance endoscopy. The endoscopic findings were linear furrows in the esophagus. 02/23/2013 11:04 AM [facility] Gross Description The specimens are received fixed in formalin in eight containers for gross and microscopic examination. ??All containers are labeled with the patient's name, Lavelle Michael. Specimen A, mid esophagus, consists of a 6 mm soft, yellow-santizo tissue fragment submitted in toto as A1. Specimen B, distal esophagus, consists of two 2 mm soft, allen-pink tissue fragments submitted in toto as B1. Specimen C, stomach, consists of four soft, yellow-santizo tissue fragments, 2 mm to 5 mm in greatest dimension. ??The specimen is submitted in toto as C1. Specimen D, duodenum, consists of three 4 mm soft, yellow-santizo tissue fragments submitted in toto as D1. Specimen E, cecum, consists of two 3 mm soft, yellow-santizo tissue fragments submitted in toto as E1. Specimen F, right colon, consists of six soft, yellow-santizo tissue fragments, 3 mm to 4 mm in greatest dimension. ??The specimen is submitted in toto as F1. Specimen G, left colon, consists of a 4 mm soft, yellow-santizo tissue fragment submitted in toto as G1. Specimen H, rectosigmoid, consists of two 4 mm soft, yellow-santizo tissue fragments submitted in toto as H1. ??(CT/vr) 02/23/2013 11:04 AM [facility] Microscopic Description 24 H&E slides Sections from the mid esophagus show eosinophilic esophagitis with reactive changes, basal cell hyperplasia and increase in intraepithelial eosinophils with degranulated eosinophils, focally approximately 40 eosinophils per high-power field. Sections from the distal esophagus show eosinophilic esophagitis with reactive changes, basal cell hyperplasia and increase in intraepithelial lymphocytes and eosinophils with degranulated eosinophils, focally approximately 60 eosinophils per high-power field. Sections from the stomach biopsy show mild chronic inflammation with increase in lamina propria plasma cells and rare eosinophils. ??There is no active inflammation. Sections from the duodenum show normal crypt to villus architecture with no increase in intraepithelial lymphocytes. Sections from the cecum and right colon show fragments of unremarkable colonic mucosa with few mucosal lymphoid aggregates. Sections from the left colon show fragments of unremarkable colonic mucosa. Sections from the rectosigmoid show fragments of unremarkable colonic mucosa with few prominent mucosal lymphoid aggregates. 02/23/2013 11:04 AM [facility] Disclaimer The performance characteristics of all immunohistochemical and indirect ??immunofluorescence stains (if any) cited in this report were determined by the [facility] Laboratory of [facility] (immunohistochemistry ) or the [facility]ology Laboratory of [facility] (indirect immunofluorescence) in compliance with CLIA `88 regulations. ??Some of these tests rely on the use of analyte-specific reagents and are subject to specific labeling requirements by the FDA. ??Such tests were developed by the ??[facility] of [facility] or the [facility] of [facility] and have not been cleared or approved by the FDA. ??The FDA has determined that such clearance or approval is not necessary. ??These tests are used for clinical purposes and should not be regarded as investigational or for research. ? This case has been personally reviewed and interpreted by the attending (teaching) pathologist. 02/23/2013 11:04 AM [facility] Synoptic Report 02/23/2013 11:04 AM [facility] Pathology/Cytology REGION OF ESOPHAGUS / Unknown 02/20/2013 8:53 AM SERVICE DESK ANALYST 02/20/2013 10:34 AM [facility] Miscellaneous samples (specimen) REGION OF ESOPHAGUS / Unknown 02/20/2013 8:53 AM [facility] 02/20/2013 10:34 AM [facility] Miscellaneous samples (specimen) ENTIRE STOMACH / Unknown 02/20/2013 8:53 AM SERVICE DESK ANALYST 02/20/2013 10:34 AM [facility] Miscellaneous samples (specimen) PART OF DUODENUM / Unknown 02/20/2013 8:53 AM SERVICE DESK ANALYST 02/20/2013 10:34 AM SERVICE DESK ANALYST Miscellaneous samples (specimen) CECUM STRUCTURE / Unknown 02/20/2013 8:53 AM SERVICE DESK ANALYST 02/20/2013 10:34 AM SERVICE DESK ANALYST Miscellaneous samples (specimen) COLON PART / Unknown 02/20/2013 8:53 AM SERVICE DESK ANALYST 02/20/2013 10:34 AM SERVICE DESK ANALYST Miscellaneous samples (specimen) COLON PART / Unknown 02/20/2013 8:53 AM SERVICE DESK ANALYST 02/20/2013 10:34 AM SERVICE DESK ANALYST Miscellaneous samples (specimen) ENTIRE RECTOSIGMOID / Unknown 02/20/2013 8:53 AM SERVICE DESK ANALYST 02/20/2013 10:34 AM SERVICE DESK ANALYST Kenzie Cobb MD LAB - PATHOLOGY/CYTO LOGY ORDERABLES Performing Organization Address City/State/[facility] Co de Phone Number [facility] [address] [place] [address] * ENDOSCOPY, COLON, DIAGNOSTIC (02/20/2013 6:58 AM SERVICE DESK ANALYST) Report Endoscopy POC _ Patient Name: Lavelle Wells ?Gender: Male ?Date of : 2000 Age: 12 ? Admit Type: Outpatient Attending MD: Kenzie oCbb, ? Order #: [id number] _ Procedure: ? Colonoscopy Indications: ? Follow-up of colitis, h/o eosinophilic enteropathy, colitis Providers: ? Kenzie Servin MD: ?Lanny Hewitt MD Medicines: ? General [...] Procedure Code(s): ? --- Professional --- ? 63024, Colonoscopy, flexible, proximal to splenic flexure; with biopsy, ? single or multiple ? --- Technical --- ? 28730, Colonoscopy, flexible, proximal to splenic flexure; with biopsy, ? single or multiple Diagnosis Code(s): ? --- Professional --- ? 558.9, Other and unspecified noninfectious gastroenteritis and colitis ? --- Technical --- ? 558.9, Other and unspecified noninfectious gastroenteritis and colitis CPT (R) 2012 [employer]. All Rights Reserved. The codes documented in this report are preliminary and upon military science teacher review may be revised to meet current compliance requirements. Dr. Kenzie Cobb Kenzie Cobb, 02/20/2013 10:18 AM This report has been signed electronically. Number of Addenda: 0 Note Initiated On: 02/20/2013 6:58 AM Procedure Date: ? 02/20/2013 6:58:12 AM ? This report has been signed electronically. [facility] 02/20/2013 6:58 AM SERVICE DESK ANALYST Narrative [facility] - 02/20/2013 10:18 AM SERVICE DESK ANALYST Procedure Note Kenzie Cobb MD - 02/20/2013 10:19 AM CST Kenzie Cobb MD GI PROCEDURE ORDERAB LES [facility] [address] [place] [address] * EGD (02/20/2013 6:57 AM SERVICE DESK ANALYST) Report Endoscopy POC __ _ Patient Name: Lavelle Michael ?Gender: Male ?Date of : 2000 Age: 12 ? Admit Type: Outpatient Attending MD: Kenzie Cobb, ? Order #: [id number] __ _ Procedure: ? Upper GI endoscopy [...] Procedure Code(s): ? --- Professional --- ? 01729, Upper gastrointestinal endoscopy including esophagus, stomach, ? and either the duodenum and/or jejunum as appropriate; with biopsy, ? single or multiple ? --- Technical --- ? 81820, Upper gastrointestinal endoscopy including esophagus, stomach, ? and either the duodenum and/or jejunum as appropriate; with biopsy, ? single or multiple Diagnosis Code(s): ? --- Professional --- ? 530.13, Eosinophilic esophagitis ? 537.9, Unspecified disorder of stomach and duodenum ? --- Technical --- ? 530.13, Eosinophilic esophagitis ? 537.9, Unspecified disorder of stomach and duodenum CPT (R) 2012 [employer]. All Rights Reserved. The codes documented in this report are preliminary and upon military science teacher review may be revised to meet current compliance requirements. Dr. Kenzie Cobb Kenzie Cobb, 02/20/2013 9:04 AM This report has been signed electronically. Number of Addenda: 0 Note Initiated On: 02/20/2013 6:57 AM Procedure Date: ? 02/20/2013 6:57:32 AM ? This report has been signed electronically. [facility] 02/20/2013 6:57 AM SERVICE DESK ANALYST Narrative [facility] - 02/20/2013 9:06 AM SERVICE DESK ANALYST Procedure Note Kenzie Cobb MD - 02/20/2013 9:06 AM CST Kenzie Cobb MD GI PROCEDURE ORDERAB LES [facility] [address] [facility] [place] [place] [address] documented in this encounter Visit Diagnoses Diagnosis Diarrhea- Primary Abdominal pain, generalized EE (eosinophilic esophagitis) and Eosinophilic Enterocolitis Eosinophilic esophagitis ADHD (attention deficit hyperactivity disorder) Attention deficit disorder with hyperactivity Eosinophilia Eczema Contact dermatitis and other eczema, due to unspecified cause Allergic rhinitis Food allergy Other adverse food reactions, not elsewhere classified documented in this encounter Administered Medications Inactive Administered Medications - up to 3 most recent administrations Medication Order MAR Action Action Date Dose Rate Site fentaNYL (SUBLIMAZE) injection 25 mcg 25 mcg (0.607 mcg/kg), Intravenous, POST-OP MULTIPLE, 2 doses, Starting on Sat02/20/13 at 1025, Until Sat02/20/13 at 1314, May give every 5 minutes. Max dose of 50 mcg. May refer to any of the 3 pain scales noted on the PACU record. May repeat dose in PACU. DO NOT EXCEED 2 mcg/kg/hr. High Risk, High Alert Medication: Must doucment double check on IV MAR Flowsheet., PACU $ Given 02/20/2013 11:32 AM SERVICE DESK ANALYST 25 mcg isolyte-S pH 7.4 infusion 80 mL/hr, Intravenous, POST-OP CONTINUOUS, Starting on Sat02/20/13 at 1030, Until Sat02/20/13 at 1314, PACU $ New Bag/Syringe 02/20/2013 11:39 AM SERVICE DESK ANALYST 80 mL/hr 80 mL/hr Current Rate 02/20/2013 10:15 AM SERVICE DESK ANALYST 80 mL/hr 80 mL/hr lidocaine (LMX 4) 4 % cream Topical, ONCE, 1 dose, On Sat02/20/13 at 0845, Apply to bilateral hand iv sites . WASTE DISPOSAL INSTRUCTIONS: Black Bin Disposal required. $ Given 02/20/2013 7:53 AM SERVICE DESK ANALYST documented in this encounter Active and Recently Administered Medications Times are shown in SERVICE DESK ANALYST. Scheduled Medication Order 02/18/2013 02/19/2013 02/20/2013 fentaNYL (SUBLIMAZE) injection 25 mcg (CANCELED) 25 mcg (0.607 mcg/kg), Intravenous, POST-OP MULTIPLE, 2 doses, Starting on Sat02/20/13 at 1025, Until Sat02/20/13 at 1314, May give every 5 minutes. Max dose of 50 mcg. May refer to any of the 3 pain scales noted on the PACU record. May repeat dose in PACU. DO NOT EXCEED 2 mcg/kg/hr. High Risk, High Alert Medication: Must doucment double check on IV MAR Flowsheet., PACU 1132 ($ Given - Prov ider: Jenna Araujo RN - Comment: GIVEN FOR ABD PAIN OF 5) lidocaine (LMX 4) 4 % cream (COMPLETED) Topical, ONCE, 1 dose, On Sat02/20/13 at 0845, Apply to bilateral hand iv sites . WASTE DISPOSAL INSTRUCTIONS: Black Bin Disposal required. 0753 ($ Given - Prov ider: Haylie Abdul RN) Continuous Medication Order 02/18/2013 02/19/2013 02/20/2013 isolyte-S pH 7.4 infusion (CANCELED) 80 mL/hr, Intravenous, POST-OP CONTINUOUS, Starting on Sat02/20/13 at 1030, Until Sat02/20/13 at 1314, PACU 1015 (Current Rate - Provider: Jenna Araujo RN)1139 ($ New Bag/Syringe - Provider: Jenna Araujo RN)1152 (Stopped - Provider: Jenna Araujo RN) documented in this encounter Care Teams Training And Documentation Specialist Relationship Specialty Start Date End Date Lanny Hewitt MD PCP - General Pediatrics 11/09/11 12/30/13 documented as of this encounter
--- OUTSIDE RECORDS SUMMARY | 2024-03-21 22:03 | XMS_ITS | Encounter Summary ---
Author Organization [facility] Address [address] [facility] [place] [address] Care Team Providers Care Plisse Machine Operator Helper Name Role Phone Lanny Hewitt MD Primary Care Provider [phone] Reason for Referral * - Closed Specialty Diagnoses / Procedures Referred By Leonard gonzalez Referred To Contact Gastroenterology Diagnoses Diarrhea Abdominal pain, generalized Procedures ENDOSCOPY, COLON, DIAGNOSTIC Kenzie Cobb MD [address] [place] [address] Referral ID Status Reason Start Date Expiration Date Visits Re quested Visits Authorized [id number] Closed 01/29/2013 07/28/2013 1 1 * - Closed Specialty Diagnoses / Procedures Referred By Leonard gonzalez Referred To Contact Gastroenterology Diagnoses Diarrhea Abdominal pain, generalized Procedures EGD Kenzie Cobb MD [address] [place] [address] Referral ID Status Reason Start Date Expiration Date Visits Re quested Visits Authorized [id number] Closed 01/29/2013 07/28/2013 1 1 Reason for Visit * Reason Onset Date Comments Scheduling 01/29/2013 Encounter Details Date Type Department Care Team ([facility] st Contact Info) Description 01/29/2013 Telephone [facility] Pediatrics - GI [address] [place] [place] [address] Kenzie Cobb MD [address] [place] [address] Scheduling Social History Tobacco Use Types Packs/Day Years [...] Telephone Encounter - Merary Fountain RN - 01/29/2013 2:25 PM CHRO Spoke to father who states they received colon prep instructions today while in clinic (sibling robert). Father will call if questions. * Telephone Encounter - Kiley Silva - 01/29/2013 1:41 PM CST Scheduled for outpatient Egd/Colon on 02/02/13 at 12:[address] Cobb. documented in this encounter Plan of Treatment Not on file documented as of this encounter Results * ENDOSCOPY, COLON, DIAGNOSTIC (02/20/2013 6:58 AM CHRO) Report Endoscopy POC _ Patient Name: Lavelle Michael ?Gender: Male ?Date of : 2000 Age: 12 ? Admit Type: Outpatient Attending MD: Kenzie Cobb, ? Order #: [id number] _ Procedure: ? Colonoscopy Indications: ? Follow-up [...] Procedure Code(s): ? --- Professional --- ? 75117, Colonoscopy, flexible, proximal to splenic flexure; with biopsy, ? single or multiple ? --- Technical --- ? 51656, Colonoscopy, flexible, proximal to splenic flexure; with biopsy, ? single or multiple Diagnosis Code(s): ? --- Professional --- ? 558.9, Other and unspecified noninfectious gastroenteritis and colitis ? --- Technical --- ? 558.9, Other and unspecified noninfectious gastroenteritis and colitis CPT (R) 2012 [employer]. All Rights Reserved. The codes documented in this report are preliminary and upon packager head review may be revised to meet current compliance requirements. Dr. Kenzie Cobb Kenzie Cobb, 02/20/2013 10:18 AM This report has been signed electronically. Number of Addenda: 0 Note Initiated On: 02/20/2013 6:58 AM Procedure Date: ? 02/20/2013 6:58:12 AM ? This report has been signed electronically. [facility] 02/20/2013 6:58 AM CHRO Narrative [facility] - 02/20/2013 10:18 AM CHRO Procedure Note Kenzie Cobb MD - 02/20/2013 10:19 AM CST Kenzie Cobb MD GI PROCEDURE ORDERAB LES Performing Organization Address City/State/[facility] Co de Phone Number [facility] [address] [place] [address] * EGD (02/20/2013 6:57 AM CHRO) Report Endoscopy POC __ _ Patient Name: Lavelle Wells ?Gender: Male ?Date of : 2000 Age: 12 ? Admit Type: Outpatient Attending MD: Kenzie Cobb, ? Order #: [id number] __ _ Procedure: ? Upper GI endoscopy Indications: ? 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 Kenzie Servin MD: ?Lanny Hewitt [...] Procedure Code(s): ? --- Professional --- ? 87079, Upper gastrointestinal endoscopy including esophagus, stomach, ? and either the duodenum and/or jejunum as appropriate; with biopsy, ? single or multiple ? --- Technical --- ? 50605, Upper gastrointestinal endoscopy including esophagus, stomach, ? and either the duodenum and/or jejunum as appropriate; with biopsy, ? single or multiple Diagnosis Code(s): ? --- Professional --- ? 530.13, Eosinophilic esophagitis ? 537.9, Unspecified disorder of stomach and duodenum ? --- Technical --- ? 530.13, Eosinophilic esophagitis ? 537.9, Unspecified disorder of stomach and duodenum CPT (R) 2012 [employer]. All Rights Reserved. The codes documented in this report are preliminary and upon packager head review may be revised to meet current compliance requirements. Dr. Kenzie Cobb Kenzie Cobb, 02/20/2013 9:04 AM This report has been signed electronically. Number of Addenda: 0 Note Initiated On: 02/20/2013 6:57 AM Procedure Date: ? 02/20/2013 6:57:32 AM ? This report has been signed electronically. [facility] 02/20/2013 6:57 AM CHRO Narrative [facility] - 02/20/2013 9:06 AM CHRO Procedure Note Kenzie Cobb MD - 02/20/2013 9:06 AM CST Kenzie Cobb MD GI PROCEDURE ORDERAB LES Performing Organization Address City/State/[facility] Co de Phone Number [facility] [address] [place] [address] documented in this encounter Visit Diagnoses Diagnosis Abdominal pain, generalized- Primary Diarrhea Diarrhea- Primary Abdominal pain, generalized EE (eosinophilic esophagitis) and Eosinophilic Enterocolitis Eosinophilic esophagitis ADHD (attention deficit hyperactivity disorder) Attention deficit disorder with hyperactivity Eosinophilia Eczema Contact dermatitis and other eczema, due to unspecified cause Allergic rhinitis Food allergy Other adverse food reactions, not elsewhere classified documented in this encounter Care Teams Plisse Machine Operator Helper Relationship Specialty Start Date End Date Lanny Hewitt MD PCP - General Pediatrics 11/09/11 12/30/13 documented as of this encounter
--- OUTSIDE RECORDS SUMMARY | 2024-03-21 22:03 | XMS_ITS | Encounter Summary ---
Author Organization [facility] Address [address] [facility] [place] [address] Care Team Providers Care Weblogic Administrator Name Role Phone Laine Sharp MD Primary Care Provider [phone] Reason for Visit * Reason Onset Date Comments MEDICATION REFILL 03/01/2015 Encounter Details Date Type Department Care Team (Late st Contact Info) Description 03/01/2015 Refill [facility] Pediatrics - [address] [place] [address] Kenzie Cobb MD [address] [place] [phone] MEDICATION REFILL Social History Tobacco Use Types [...] on filedocumented in this encounter Care Teams Weblogic Administrator Relationship Specialty Start Date End Date Laine Sharp MD [address] [facility] [address] [place] [phone] PCP - General Pediatrics 12/31/13 documented as of this encounter
--- OUTSIDE RECORDS SUMMARY | 2024-03-21 22:03 | XMS_ITS | Encounter Summary ---
Author Organization [facility] Address [address] [place] [address] Care Team Providers Care Microbiological Laboratory Technician Name Role Phone Laine Sharp MD Primary Care Provider Reason for Visit * Reason Comments Eosinophilic Esophagitis food and season al allergies Encounter Details Date Type Department Care Team (Latest Contact Info) Description 10/17/2016 10:45 AM CDT - 10/17/2016 11:59 PM CDT Hospital Encounter [facility] Pediatrics - Allergy [address] [place] [address] Abdulkadir Huang, DO [address] [place] [address] Discharge Disposition: Home or Self Care Social [...] Sign Reading Time Taken Comments Blood Pressure 112/80 10/17/2016 10:51 AM CDT Pulse - - Temperature - - Respiratory Rate - - Oxygen Saturation - - Inhaled Oxygen Concentration - - Weight 89.8 kg (197 lb 15.6 oz) 017 10:51 AM CDT Height 170.6 cm (5' 7.17 ) 10/17/2016 1 0:51 AM CDT Body Mass Index 30.85 10/17/2016 10:51 AM CDT Body Mass Index Percentile 96.43% 10/17 10:51 AM CDT Growth Chart: [facility] (Boys, [...] this encounter Discharge Instructions * Patient Instructions* Kunal Goff MD - 10/17/2016 12:19 PM CDT Please review: Environmental controls for mold, dust mites, cat, dog, other furry animals, trees, and weeds. ?? For dust mites and mold, humidifiers or vaporizers should not be used since these allergens growin high humidity. The indoor humidity should be controlled with air conditioning and/or dehumidifiers to keep it in the 30-50% range. This may be checked with an electronic thermometer which a humidity gauge. ?? Furry animals should be kept out of the child's bedroom at all times. ?? For pollen and outdoor mold allergy, the windows should be kept shut and air conditioning and heat should be used as needed. The filters on the furnace blower should be changed regularly, at leastevery 3 months. ?? A foundation in the [place] area called [facility] may be able to get dust proof allergy mattress and pillow covers for your child's bed, if needed. They may also be able to help you obtain allergy and asthma medications or help with medication copays if needed. You can apply for this online at [email or web address]: [email or web address], click on apply online, and fill out the online application ?? Take swallowed Flovent 220: 2 puffs orally while holding her breath 1 minute apart. Swallow. Take 1 sip of water, swish it, and spit it out ?? Eczema care instructions with daily bathing with sensitive skin Dove bar soap followed by moisterization with scent free vaseline. Mometasone ointment is to be applied to red, itchy rashes once a day as needed, but not more than half the days of a month. ?? Our recommendation he have an influenza vaccination each December. ?? More information may be found at [email or web address] ?? A repeat EGD is recommended in 2-4 months, with Allergy follow-up the following month. ?? The Discharge Instructions have been reviewed with the patient and his family. The parents have verbalized understanding. documented in this encounter Medications at Time [...] 10/01/2016 03/12/2019 documented as of this encounter Progress Notes * Kunal Goff MD - 10/17/2016 11:12 AM CDT LAST VISIT: 11/19/2013 CHIEF COMPLAINT: Eosinophilic Esophagitis (food and seasonal allergies) HISTORY OF PRESENT ILLNESS: Lavelle Michael is a 16 y.o. male who presents today for follow-up of his EOE. He is accompanied by his mother, from whom additional history is obtained. EOE: - EGD on 10/01/16, scope was done with no medication and no food elimination - Mom says she doesn't know why they have this appointment - Says he has no symptoms, hasn't had any symptoms for a couple years - Has been taking prilosec and flovent 110 since GI scope last week, previously had not been on anymedication - Not avoiding any foods Results of EGD 10/01/16 Final Diagnosis A. DUODENUM BIOPSY: - MILD HISTOLOGIC ALTERATION, SEE DESCRIPTION. ?? B. STOMACH, BIOPSY: - MILD CHRONIC GASTRITIS. ?? C. ESOPHAGUS, DISTAL, BIOPSY: - EOSINOPHILIC ESOPHAGITIS, GREATER THAN 100 EOSINOPHILS/ HPF. ?? D. ESOPHAGUS, MID, BIOPSY: - EOSINOPHILIC ESOPHAGITIS, UP TO 80 EOSINOPHILS/HPF. Past asthma: No recent symptoms Allergic rhinitis: Currently on no medications. Sneezing, rhinorrhea, congestion, itchy eyes and nose. Usually worst at beginning of spring/fall. Atopic dermatitis: Has history of eczema but clear today except for behind the ears On no medications Laundry Detergent: Gain Current Outpatient Prescriptions Medication Sig Dispense Refill ??? fluticasone hfa 110 (FLOVENT HFA 110) 110 MCG/ACT inhaler Take 2 Puffs by mouth 2 times daily Reasons: Eosinophilic Esophagitis 12 g 1 ??? omeprazole (PRILOSEC) 20 MG capsule Take 1 Cap by mouth 2 times daily,before breakfast and supper 60 Cap 3 ??? mometasone (ELOCON) 0.1 % ointment Apply to affected area once daily as needed (for red, itcheyskin). 15 g 6 No current facility-administered medications for this encounter. Medication Allergies: Allergies Allergen Reactions ??? Milk Protein ??? Other CLEAR TAPE CAUSED IRRITATION. PLEASE USE CLOTH TAPE ??? Peanut-Derived ??? Wheat Review of Systems: Constitutional: No weight loss, fever, ROACH, fatigue ENT: see HPI CV: No chest pain, dyspnea on exertion, or palpitations Resp: No wheeze, SOB, cough GI: No abdominal pain, vomiting, diarrhea, constipation, dysphagia : No retention, incontinence, dysuria, hematuria MS: No joint or bone pain, swelling, redness Neuro: No weakness, numbness, confusion, syncope Skin: No hives, angioedema, pruritus, eczema Psych: No behavioral changes Endocrine: no polyuria, polydipsia, flushing Heme/Lymph: no bruising or bleeding A review of past medical history, environmental history, and family history was obtained and no change since previous visit. PHYSICAL EXAM: BP 112/80 Ht 1.706 m (5' 7.16 ) Wt 89.8 kg (197 lb 15.6 oz) BMI 30.85 kg/m2 GENERAL: No acute distress, well-developed, well-nourished EYES: Conjunctivae clear bilaterally ENT: TM obscured by some cerumen bilaterally, nares patent with clear mucus and pale, boggy nasal mucosa, oropharynx clear CV: Heart with regular rate and rhythm, normal S1 RESPIRATORY: Lungs clear to auscultation bilaterally, no wheezes ABDOMEN: Soft, non-tender, non-distended EXTREMITIES: No cyanosis, edema SKIN: Small dry area behind ears bilaterally LYMPHATIC: No cervical lymphadenopathy NEUROLOGIC: Alert, follows commands ASSESSMENT & PLAN: EOE: - Discussed chronicity of condition and importance of follow up - Patient prefers to treat with medication rather than elimination diet - Increase swallowed Flovent from 110 to 220 BID Allergic Rhinitis: - Discussed and provided written information on environmental control measures to decrease overall relevant aeroallergen exposure. - Start cetirizine 10 mg PRN Atopic dermatitis: - Mometasone 0.1% ointment prn to red itchy areas Mignon Uribe, MS4 10/17/2016 11:13 AM Attending Physician Supervisory Note I personally interviewed and examined the patient and agree with the student above. 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 He was originally treated with elimination diets and swallowed steroids, but was lost to FU. He is not having recent upper or lower GI symptoms. He had a repeat EGD with Dr. Cobb 10/01/16 which showed >100 eos/HPF and gastritis with some eosinophilia in his stomach and duodenum. His peripheral AEC was high at 620 that date. He was restarted on prilosec and swallowed Flovent 110 after that scope. A colonoscopy is scheduled. AR, AC: intermittent symptoms more so in the spring and fall. Eczema: occasional flares behind his ears. Past asthma: One hospitalization in 2008. No recent exacerbations or symptoms. ROS: As above PE: remarkable for dry skin behind his ears, injected conjunctiva, boggy nasal mucosa, OP normal, chest CTA, abdomen benign without masses. Assessment: Patient Active Problem List Diagnosis Date Noted ??? Eczema 02/12/2012 ??? Allergic rhinitis 02/12/2012 [...] flovent 220 mcg 2 puffs swallow bid 10/31/12. He was on 6 food elimination diet [...] 11/09/2011 - Continue home Adderall and Vyvanse Plan: Orders Placed This Encounter ??? mometasone (ELOCON) 0.1 % ointment Sig: Apply to affected area once daily as needed (for red, itchy skin) Dispense: 45 g Refill: 6 ??? fluticasone hfa 220 (FLOVENT HFA) 220 MCG/ACT inhaler Sig: Take 2 Puffs by mouth 2 times daily take 2 puffs orally while holding her breath 1 minute apart. Swallow. Take a sip of water and spit. Dispense: 1 Inhaler Refill: 6 ??? cetirizine (ZYRTEC) 10 MG tablet Sig: Take 1 Tab by mouth at bedtime Dispense: 30 Tab Refill: 6 Education: ?? For dust mites and mold, humidifiers or vaporizers should not be used since these allergens growin high humidity. The indoor humidity should be controlled with air conditioning and/or dehumidifiers to keep it in the 30-50% range. This may be checked with an electronic thermometer which a humidity gauge. ?? Furry animals should be kept out of the child's bedroom at all times. ?? For pollen and outdoor mold allergy, the windows should be kept shut and air conditioning and heat should be used as needed. The filters on the furnace blower should be changed regularly, at leastevery 3 months. ?? A foundation in the [facility] called [facility] may be able to get dust proof allergy mattress and pillow covers for your child's bed, if needed. They may also be able to help you obtain allergy and asthma medications or help with medication copays if needed. You can apply for this online at [email or web address]: [email or web address], click on apply online, and fill out the online application ?? Take swallowed Flovent 220: 2 puffs orally while holding her breath 1 minute apart. Swallow. Take 1 sip of water, swish it, and spit it out ?? Eczema care instructions with daily bathing with sensitive skin Dove bar soap followed by moisterization with scent free vaseline. Mometasone ointment is to be applied to red, itchy rashes once a day as needed, but not more than half the days of a month. ?? Our recommendation he have an influenza vaccination each December. ?? More information may be found at [email or web address] ?? A repeat EGD is recommended in 2-4 months, with Allergy follow-up the following month. Kunal Goff MD documented in this encounter Plan of Treatment Not on file documented as of this encounter Visit Diagnoses Diagnosis Eczema, unspecified type documented in this encounter Care Teams Microbiological Laboratory Technician Relationship Specialty Start Date End Date Laine Sharp MD [address] [place] [phone] PCP - General Pediatrics 12/31/13 documented as of this encounter
--- OUTSIDE RECORDS SUMMARY | 2024-03-21 22:03 | XMS_ITS | Encounter Summary ---
Author Organization [facility] Address [address] [facility] [place] [address] Care Team Providers Care Auto Body Shop Manager Name Role Phone Laine Sharp MD Primary Care Provider [phone] Reason for Visit * Reason Onset Date Comments Refill Request 09/14/2015 Encounter Details Date Type Department Care Team (Late st Contact Info) Description 09/14/2015 Telephone [facility] Pediatrics - [address] [place] [address] Kenzie Cobb MD [facility] [place] [address] Refill Request Social History Tobacco Use Types [...] Telephone Encounter - Kenzie Cobb MD - 09/14/2015 9:13 AM CDT I refilled rx... Last appt was in 02/2015 documented in this encounter Plan of Treatment Not on file documented as of this encounter Visit Diagnoses Not on filedocumented in this encounter Care Teams Auto Body Shop Manager Relationship Specialty Start Date End Date Laine Sharp MD [address] [phone] PCP - General Pediatrics 12/31/13 documented as of this encounter
--- OUTSIDE RECORDS SUMMARY | 2024-03-21 22:03 | XMS_ITS | Encounter Summary ---
Author Organization [facility] Address [address] [facility] [place] [address] Care Team Providers Care Claim Processing Specialist Name Role Phone Laine Sharp MD Primary Care Provider [phone] Reason for Visit * Reason Onset Date Comments Update 11/30/2016 Encounter Details Date Type Department Care Team (Late st Contact Info) Description 11/30/2016 Telephone [facility] [id number] [place] [address] Stuart Miller MD [address] [place] [phone] Update Social History Tobacco Use Types Packs/Day [...] Telephone Encounter - Tiffany Monzon RN - 12/03/2016 8:40 AM CDT Spoke to mom, reviewed biopsy results. Mom will call back for follow up. * Telephone Encounter - Tiffany Monzon RN - 11/30/2016 8:02 AM CDT Left message for mom to call the office. * Telephone Encounter - Stuart Miller MD - 11/30/2016 7:52 AM CDT Please tell family Bx from scope look good, no Eo, in remission Make f/u appt w [facility] for Nov. documented in this encounter Plan of Treatment Not on file documented as of this encounter Visit Diagnoses Not on filedocumented in this encounter Care Teams Claim Processing Specialist Relationship Specialty Start Date End Date Laine Sharp MD [address] [phone] PCP - General Pediatrics 12/31/13 documented as of this encounter
--- OUTSIDE RECORDS SUMMARY | 2024-03-21 22:03 | XMS_ITS | Encounter Summary ---
Author Organization [facility] Address [address] [facility] [place] [address] Care Team Providers Care Communication Center Coordinator Name Role Phone Laine Sharp MD Primary Care Provider [phone] Reason for Visit * Reason Onset Date Comments MEDICATION REFILL 02/28/2015 Encounter Details Date Type Department Care Team (Late st Contact Info) Description 02/28/2015 [address]ill [facility] Pediatrics - [address] [place] [address] Kenzie Cobb MD [facility] [place] [address] MEDICATION REFILL Social History Tobacco Use Types [...] Telephone Encounter - Kenzie Cobb MD - 02/28/2015 10:21 AM CST Done. thanks ADMIRAL * Telephone Encounter - Damaris Lopez RN - 02/28/2015 10:00 AM CST Flovent refill pended for Dr. Cobb's signature. Last appt was 02/17/2015. ADMIRAL documented in this encounter Plan of Treatment Not on file documented as of this encounter Visit Diagnoses Diagnosis EE (eosinophilic esophagitis)- Primary Eosinophilic esophagitis documented in this encounter Care Teams Communication Center Coordinator Relationship Specialty Start Date End Date Laine Sharp MD [address] [place] [phone] PCP - General Pediatrics 12/31/13 documented as of this encounter
--- OUTSIDE RECORDS SUMMARY | 2024-03-21 22:03 | XMS_ITS | Encounter Summary ---
Author Organization [facility] Address [address] [place] [address] Care Team Providers Care Surgical Physician Assistant Name Role Phone Laine Sharp MD Primary Care Provider [phone] Reason for Visit * Reason Comments Follow-up last 2 months having diarrhea for 2-3 days then stops Encounter Details Date Type Department Care Team (Latest Contact Info) Description 02/17/2015 3:00 PM OPEN CLAIMS REPRESENTATIVE - 02/17/2015 11:59 PM [facility] Encounter [facility] - GI [address] [place] [address] Kenzie Cobb MD [address] [place] [address] Discharge Disposition: Home or Self Care Social [...] Sign Reading Time Taken Comments Blood Pressure - - Pulse - - Temperature - - Respiratory Rate - - Oxygen Saturation - - Inhaled Oxygen Concentration - - Weight 69.4 kg (153 lb) 02/17/2015 4:04 PM OPEN CLAIMS REPRESENTATIVE Height 167.6 cm (5' 6 ) 02/17/2015 4:04 PM OPEN CLAIMS REPRESENTATIVE Body Mass Index 24.69 02/17/2015 4:04 PM OPEN CLAIMS REPRESENTATIVE Body Mass Index Percentile 88.57% 02/17/2015 4:0 4 PM OPEN CLAIMS REPRESENTATIVE Growth Chart: [facility] (Boys, 2-2 0 Years) documented in this encounter Discharge Instructions * Patient Instructions* Kenzie Cobb MD - 02/17/2015 5:23 PM OPEN CLAIMS REPRESENTATIVE Call our office to schedule EGD and colonoscopy CLAIMS REPRESENTATIVE documented in this encounter Medications at Time of Discharge Medication Sig Dispensed Refills Start Date End Date esomeprazole (NEXIUM) 40 MG capsule Take 1 Cap by mouth daily before breakfast. DUE TO BE SEEN--PLEASE SCHEDULE F/U 30 Cap 2 06/30/2014 03/01/2015 fluticasone hfa 220 (FLOVENT HFA) 220 MCG/ACT inhalerIndications:Eo sinophilic Esophagitis Take 2 puffs twice daily orally while holding breath 1 minute apart, then drink some water. Indications: Eosinophilic Esophagitis 1 Inhaler 6 02/09/2014 02/28/2015 lisdexamfetamine (VYVANSE) 50 MG capsule Take 50 mg by mouth every morning. 07/19/2016 loratadine (CLARITIN) 10 MG tablet Take 10 mg by mouth once daily. 10/01/2016 mometasone (ELOCON) 0.1 % ointmentIndications:E czema Apply to affected area once daily as needed (for red, itchey skin). 15 g 6 02/12/2012 10/17/2016 documented as of this encounter Progress Notes * Kenzie Cobb MD - 02/17/2015 5:04 PM CST CHIEF COMPLAINT: Follow-up Lavelle Michael was seen in the Pediatric GI clinic along with his parents in followup HISTORY: Lavelle is a 14 y.o. male who presents with a chief complaint of followup eosinophilic disease He initially presented in November 2011 for symptoms of abdominal pain and diarrhea with profound peripheral eosinophilia. Infectious etiologies ruled out. ONcology involved, BM and labs not c/w malignancy. He underwent EGD, colonoscopy which revealed eosinophils throughout the GI tract. IMproved with oral steroids, that resurfaced after steroids weaned. He was referred to [facility]. Although initially had recommended 6mp for maintenance of remission, family was hesistant . I had a?? Phone conversation?? With Dr. Hinojosa as well, and givin family's hestiation as well as lack of robust data guiding immunomodulator management in this case. We electedto hold off on this and follow him clinically. Lavelle has acutally done remarkably well. Last EGD/colonoscopy in January 2014 revealed signficantEoE (only on once daily swallowed Flovent) and mild eosiniphilia throughout oclon. He has had signficant growth - almost 50 lb weight gain since last visit! For the past few months, Lavelle has had intermittent diarrhea - lasting for a few days at a time. Loose stools once per day. No blood in the stools. No weight loss. No flushing. Lavelle is taking Flovent twice per day. No dietary restrictions PAST MEDICAL HISTORY: Lavelle's past medical history includes: Past Medical History Diagnosis Date ??? ADHD (attention deficit hyperactivity disorder) on adderall and vyvanse ??? Abdominal pain, diarrhea, emesis 11/09/2011 admitted hosp 3-4 week hx ??? Eosinophilia 11/10/2011 ??? Unspecified asthma(493.90) dx 2004 exercise induced asthma--uses albuterol prn--last used 06/2011--never hosp last ER visit 2008 ??? Eosinophilic gastroenteritis and colitis ??? Eosinophilic esophagitis Lavelle's past surgical history includes: Past Surgical History Procedure Laterality Date ??? [...] upper 02/20/2013 ENDOSCOPY GI UPPER WITH BIOPSY ??? Colonoscopy with biopsy 01/22/2014 COLONOSCOPY BIOPSY ??? Endoscopy, upper 01/22/2014 ENDOSCOPY GI UPPER WITH BIOPSY No history on file. SOCIAL HISTORY: History Social History Narrative Lives with mother, [...] known respiratory disorders GI: see HPI above; occasional loose stools, negative for abdominal pain, nausea, vomiting, diarrhea, constipation, hematochezia and melena : no dysuria or hematuria HEME: no easy bleeding or bruising NEURO: no headaches, no seizures PSYCH: no history of mental illness ALL/IMMUNO: positive CURRENT MEDICATIONS: Current Outpatient Prescriptions Medication Sig Dispense Refill ??? esomeprazole (NEXIUM) 40 MG capsule Take 1 Cap by mouth daily before breakfast. DUE TO BE SEEN--PLEASE SCHEDULE F/U 30 Cap 2 ??? fluticasone hfa 220 (FLOVENT HFA) 220 MCG/ACT inhaler Take 2 puffs twice daily orally while holding breath 1 minute apart, then drink some water. Indications: Eosinophilic Esophagitis 1 Inhaler 6 ??? lisdexamfetamine (VYVANSE) 50 MG capsule Take 50 mg by mouth every morning. ??? loratadine (CLARITIN) 10 MG tablet Take 10 mg by mouth once daily. ??? mometasone (ELOCON) 0.1 % ointment Apply to affected area once daily as needed (for red, itcheyskin). 15 g 6 No current facility-administered medications for this encounter. PHYSICAL EXAM: Wt 69.4 kg (153 lb) BMI 24.71 kg/m2 GEN: awake, alert, interactive with exam in no [...] Lavelle is a 14 y/o M with h/o eosinophilic esophagitis and eosinophilic gastroenteropathy (dudodenitis, colitis) . ONly mild clinical symptoms at this tpoint PLAN: Orders Placed This Encounter ??? EGD Standing Status: Future Number of Occurrences: Standing Expiration Date: 02/19/2016 ??? ENDOSCOPY, COLON, DIAGNOSTIC Standing Status: Future Number of Occurrences: Standing Expiration Date: 02/19/2016 Schedule surveillance EGD and colonoscopy (will be done on no dietary restrictions, twice daily swallowed Flovent) Plan of care, including education on the safe and effective use of medication(s) and/or medical equipment if prescribed, was discussed with Lavelle's parents who verbalized understanding and agreed with the treatment options discussed. 02/17/2015 12:56 PM CLAIMS REPRESENTATIVE documented in this encounter Plan of Treatment Not on file documented as of this encounter Visit Diagnoses Diagnosis EE (eosinophilic esophagitis) and Eosinophilic Enterocolitis- Primary Eosinophilic esophagitis documented in this encounter Care Teams Surgical Physician Assistant Relationship Specialty Start Date End Date Laine Sharp MD [address] [place] [phone] PCP - General Pediatrics 12/31/13 documented as of this encounter
--- OUTSIDE RECORDS SUMMARY | 2024-03-21 22:03 | XMS_ITS | Encounter Summary ---
Author Organization [facility] Address [address] [facility] [address] Care Team Providers Care Newborn Hearing Screener Name Role Phone Lanny Hewitt MD Primary Care Provider [phone] Reason for Visit * Reason Onset Date Comments MEDICATION REFILL 11/19/2013 Encounter Details Date Type Department Care Team (Late st Contact Info) Description 11/19/2013 Refill [facility] Pediatrics - Allergy [address] [place] [address] Kunal Goff MD [address] [place] [address] MEDICATION REFILL Social History Tobacco Use Types [...] encounter Miscellaneous Notes * Telephone Encounter - Sari Lorenzo RN - 11/19/2013 9:16 AM CDT Refill request received for Flovent 220mcg. Last appointment 02/12/12, no f/u scheduled. Refill denial faxed to pharmacy with instructions to refer to PMD for further refills or recommend f/u. documented in this encounter Plan of Treatment Not on file documented as of this encounter Visit Diagnoses Not on filedocumented in this encounter Care Teams Newborn Hearing Screener Relationship Specialty Start Date End Date Lanny Hewitt MD PCP - General Pediatrics 11/09/11 12/30/13 documented as of this encounter
--- OUTSIDE RECORDS SUMMARY | 2024-03-21 22:03 | XMS_ITS | Encounter Summary ---
Author Organization [facility] Address [address] [facility] [place] [address] Care Team Providers Care Ocean Import Representative Name Role Phone Lanny Hewitt MD Primary Care Provider [phone] Reason for Visit * Reason Onset Date Comments MEDICATION REFILL 02/11/2013 Encounter Details Date Type Department Care Team (Late st Contact Info) Description 02/11/2013 Refill [facility] Pediatrics - [address] [place] [address] Kenzie Cobb MD [facility] [place] [address] MEDICATION REFILL Social History Tobacco Use Types [...] on filedocumented in this encounter Care Teams Ocean Import Representative Relationship Specialty Start Date End Date Lanny Hewitt MD PCP - General Pediatrics 11/09/11 12/30/13 documented as of this encounter
--- OUTSIDE RECORDS SUMMARY | 2024-03-21 22:03 | XMS_ITS | Encounter Summary ---
Author Organization [facility] Address [address] [facility] [place] [address] Care Team Providers Care It Sales Executive Name Role Phone Laine Sharp MD Primary Care Provider [phone] Reason for Visit * Reason Onset Date Comments Refill Request 07/26/2017 Encounter Details Date Type Department Care Team (Late st Contact Info) Description 07/26/2017 Telephone [facility] [address] [place] [address] Kenzie Cobb MD [facility] [place] [address] Refill Request Social History Tobacco Use Types [...] Telephone Encounter - Blossom Lujan RN - 07/26/2017 7:48 AM CDT Received refill request for omeprazole. Last seen at time of endoscopy in November 2016 with instructions to f/u in January. Refill refused & pharmacy notified. documented in this encounter Plan of Treatment Not on file documented as of this encounter Visit Diagnoses Not on filedocumented in this encounter Care Teams It Sales Executive Relationship Specialty Start Date End Date Laine Sharp MD [address] [phone] PCP - General Pediatrics 12/31/13 documented as of this encounter
--- OUTSIDE RECORDS SUMMARY | 2024-03-21 22:03 | XMS_ITS | Encounter Summary ---
Author Organization [facility] Address [address] [place] [address] Care Team Providers Care Integrity Assessor Name Role Phone Lanny Hewitt MD Primary Care Provider [phone] Reason for Visit * Auth/Cert - Closed Specialty Diagnoses / Procedures Referred By Contac t Referred To Contact Diagnoses EE (eosinophilic esophagitis) Procedures COLONOSCOPY BIOPSY ENDOSCOPY GI UPPER WITH BIOPSY Referral ID Status Reason Start Date Expiration Date Visits Re quested Visits Authorized [id number] Closed 1 1 Encounter Details Date Type Department Care Team (Late Contact Info) Description 02/20/2013 8:30 AM [facility] COPER - 02/20/2013 10:00 AM [facility] Surgery [facility] - Endoscopy [address] [place] [address] Kenzie Cobb MD [address] [place] [id number] COLONOSCOPY BIOPSY (ANY METHOD) Surgery Details Date/Time Status Location OR Service Patient Class Case Class Case Type Trauma Case? 02/20/2013 8:30 AM Posted [facility] ENDO Endo 03 Gastroenterology Surgery Day Care Elective > 5 days Panel 1 Procedure LRB Anes Op Region Wound Class Comments COLONOSCOPY BIOPSY (ANY METHOD) General Clean Contaminated ESOPHAGOGASTRODUODENOSCOPY ( EGD) BIOPSY General Clean Contaminated Surgeon Surgeon Role [...] Comments Blood Pressure 101/54 02/20/2013 11:45 AM MARBLE COPER Pulse 61 02/20/2013 11:45 AM MARBLE COPER Temperature 36.7 ??C (98 ??F) 02/20/2013 10: 20 AM MARBLE COPER Respiratory Rate 20 02/20/2013 11:4 5 AM MARBLE COPER Oxygen Saturation 100% 02/20/2013 11: 45 AM MARBLE COPER Inhaled Oxygen Concentration - - Weight 41.2 kg (90 lb 13.3 oz) 02/20/2013 8:00 A M MARBLE COPER Height 154 cm (5' 0.63 ) 02/20/2013 8:00 AM MARBLE COPER Body Mass Index 17.37 02/20/2013 8:00 AM MARBLE COPER Body Mass Index Percentile 24.98% 02/20/2013 8:0 0 AM MARBLE COPER Growth Chart: [facility] (Boys, 2-2 0 Years) documented in this encounter Discharge Summaries * Kenzie Cobb MD - 02/20/2013 10:24 AM CST Images from the original note were not included. SAME DAY SURGERY DISCHARGE SUMMARY Patient ID: Lavelle Michael [id number] 12 y.o. 2000 Discharge Date: Discharge Diagnoses: [...] his/her condition, please call the GI office [phone]. Afterhours, call the exchange at [phone]. SPECIAL INSTRUCTIONS Please allow 10-14 days for biopsy results to be finalized. Follow up in GI clinic in 6 months Kenzie Cobb MD 02/20/2013 10:25 AM LE COPER documented in this encounter Discharge Instructions * Discharge Instructions* Jenna Araujo RN - 02/20/2013 10:28 AM MARBLE COPER Discharge Instructions for: Lavelle Michael Discharge Procedure [...] his/her condition, please call the GI office [phone]. Afterhours, call the exchange at [phone]. SPECIAL INSTRUCTIONS Please allow 10-14 days for [...] any worsening of their condition, please phone [phone] and ask for the doctor contact lens molder for DR. CURIEL or return to the Emergency Department. 02/20/2013 LE COPER * Discharge Instructions* Document, Scanned - 02/24/2013 5:13 AM MARBLE COPER LE COPER documented in this encounter Medications at Time [...] y/o M with eosinophilic gastroenteropathy, evaluateion at [facility] earlier this fall. [...] perform above noted procedure. Kenzie Cobb MD LE COPER documented in this encounter Procedure Notes * Document, Scanned - 02/24/2013 5:13 AM CSTAssociated Order(s): PATHOLOGY/CYTOLOGY REPORT ORDER LE COPER * Kenzie Cobb MD - 02/20/2013 10:19 AM CSTAssociated Order(s): ENDOSCOPY, COLON, DIAGNOSTIC LE COPER * Kenzie Cobb MD - 02/20/2013 9:06 AM CSTAssociated Order(s): EGD LE COPER documented in this encounter Miscellaneous Notes * Miscellaneous Scans - Document, Scanned - 02/24/2013 5:13 AM CST LE COPER * Miscellaneous Scans - Document, Scanned - 02/24/2013 5:12 AM CST LE COPER documented in this encounter Plan of Treatment Not on file documented as of this encounter Procedures Procedure Name Priority Date/Time Associated Diagnosis Comments PATHOLOGY/CYTOLOGY REPORT ORDER 02/24/2013 5:13 AM [facility] COPER ESOPHAGOGASTRODUODENOSCOPY (EGD) BIOPSY 02/20/2013 4:30 PM MARBLE COPER EE (eosinophilic esophagitis) COLONOSCOPY BIOPSY (ANY METHOD) 02/20/2013 4:30 PM MARBLE COPER EE (eosinophilic esophagitis) PATHOLOGY TISSUE EXAM (STL) STAT 02/08 8:53 AM MARBLE COPER Diarrhea Abdominal pain, generalized EE (eosinophilic esophagitis) and Eosinophilic Enterocolitis ADHD (attention deficit hyperactivity disorder) Eosinophilia Eczema Allergic rhinitis Food allergy ENDOSCOPY, COLON, DIAGNOSTIC Routine 6:58 AM MARBLE COPER Diarrhea Abdominal pain, generalized EGD Routine 02/20/2013 6:57 AM MARBLE COPER Diarrhea Abdominal pain, generalized documented in this encounter Results * PATHOLOGY/CYTOLOGY REPORT ORDER (02/24/2013 5:13 AM MARBLE COPER) Narrative 02/24/2013 5:13 AM MARBLE COPER Ordered by an unspecified provider. Transcriptions Document, Scanned - 02/24/2013 5:13 AM CST Scanned Document LAB - PATHOLOGY/CYTO LOGY ORDERABLES * GROSS + MICRO EXAM (STL) (02/20/2013 8:53 AM MARBLE COPER) Case Report Surgical Pathology Report ? Case: [id number] ? Authorizing Provider: ??Kenzie Cobb MD ? Ordering Provider: ?? Kenzie Cobb MD ? Ordering Location: ? ENDOSCOPY SERVICES ?Collected: ? 02/20/2013 ??8:53 AM ? Pathologist: ? Matilde Vo MD ? Received: ?02/20/2013 10:34 AM ?Signed Out: ?02/23/2013 11:04 AM (Final) ? Specimens: ?? A) - Esophagus, Mid ? B) - Esophagus, Distal ? C) - Stomach ? D) - Duodenum ? E) - Cecum ? F) - Colon, Right ? G) - Colon, Left ? H) - Rectosigmoid ? 02/23/2013 11:04 AM [facility] Final Diagnosis A. ESOPHAGUS, MID, BIOPSY: [...] - NO HISTOPATHOLOGIC ABNORMALITY 02/23/2013 11:04 AM [facility] Clinical History The patient is a 12-year-old boy with eosinophilic gastroenteropathy, doing well and is asymptomatic. The patient underwent surveillance endoscopy. The endoscopic findings were linear furrows in the esophagus. 02/23/2013 11:04 AM [facility] Gross Description The specimens are received [...] toto as H1. ??(CT/vr) 02/23/2013 11:04 AM [facility] Microscopic Description 24 H&E slides Sections [...] prominent mucosal lymphoid aggregates. 02/23/2013 11:04 AM [facility] Disclaimer The performance characteristics of all immunohistochemical and indirect ??immunofluorescence stains (if any) cited in this report were determined by the Histopathology Laboratory of [facility] (immunohistochemistry ) or the Histology Laboratory of [facility] (indirect immunofluorescence) in compliance with CLIA `88 regulations. ??Some of these tests rely on the use of analyte-specific reagents and are subject to specific labeling requirements by the FDA. ??Such tests were developed by the ??[facility]opathology Laboratory of [facility] or the Histology Laboratory of [facility] and have not been cleared or approved by the FDA. ??The FDA has determined that such clearance or approval is not necessary. ??These tests are used for clinical purposes and should not be regarded as investigational or for research. ? This case has been personally reviewed and interpreted by the attending (teaching) pathologist. 02/23/2013 11:04 AM [facility] Synoptic Report 02/23/2013 11:04 AM [facility] Pathology/Cytology REGION OF ESOPHAGUS / Unknown 02/20/2013 8:53 AM [facility] COPER 02/20/2013 10:34 AM [facility] COPER Miscellaneous samples (specimen) REGION OF ESOPHAGUS / Unknown 02/20/2013 8:53 AM [facility] COPER 02/20/2013 10:34 AM [facility] COPER Miscellaneous samples (specimen) ENTIRE STOMACH / Unknown 02/20/2013 8:53 AM MARBLE COPER 02/20/2013 10:34 AM [facility] COPER Miscellaneous samples (specimen) PART OF DUODENUM / Unknown 02/20/2013 8:53 AM [facility] COPER 02/20/2013 10:34 AM [facility] COPER Miscellaneous samples (specimen) CECUM STRUCTURE / Unknown 02/20/2013 8:53 AM [facility]BLE COPER 02/20/2013 10:34 AM [facility] COPER Miscellaneous samples (specimen) COLON PART / Unknown 02/20/2013 8:53 AM [facility] COPER 02/20/2013 10:34 AM [facility] COPER Miscellaneous samples (specimen) COLON PART / Unknown 02/20/2013 8:53 AM MARBLE COPER 02/20/2013 10:34 AM MARBLE COPER Miscellaneous samples (specimen) ENTIRE RECTOSIGMOID / Unknown 02/20/2013 8:53 AM MARBLE COPER 02/20/2013 10:34 AM MARBLE COPER Kenzie Cobb MD LAB - PATHOLOGY/CYTO LOGY ORDERABLES [facility] [address] [place] [address] * ENDOSCOPY, COLON, DIAGNOSTIC (02/20/2013 6:58 AM MARBLE COPER) Report Endoscopy POC _ Patient Name: Lavelle Wells ?Gender: Male ?Date of : 2000 Age: 12 ? Admit Type: Outpatient Attending MD: Kenzie Cobb, ? Order #: [id number] _ Procedure: ? Colonoscopy Indications: ? Follow-up [...] Procedure Code(s): ? --- Professional --- ? 54057, Colonoscopy, flexible, proximal to splenic flexure; with biopsy, ? single or multiple ? --- Technical --- ? 27705, Colonoscopy, flexible, proximal to splenic flexure; with biopsy, ? single or multiple Diagnosis Code(s): ? --- Professional --- ? 558.9, Other and unspecified noninfectious gastroenteritis and colitis ? --- Technical --- ? 558.9, Other and unspecified noninfectious gastroenteritis and colitis CPT (R) 2012 [employer]. All Rights Reserved. The codes documented in this report are preliminary and upon disability hearing officer review may be revised to meet current compliance requirements. Dr. Kenzie Cobb Kenzie Cobb, 02/20/2013 10:18 AM This report has been signed electronically. Number of Addenda: 0 Note Initiated On: 02/20/2013 6:58 AM Procedure Date: ? 02/20/2013 6:58:12 AM ? This report has been signed electronically. [facility] 02/20/2013 6:58 AM MARBLE COPER Narrative [facility] - 02/20/2013 10:18 AM MARBLE COPER Procedure Note Kenzie Cobb MD - 02/20/2013 10:19 AM CST Kenzie Cobb MD GI PROCEDURE ORDERAB LES [facility] [address] [facility] [place] [address] * EGD (02/20/2013 6:57 AM MARBLE COPER) Report Endoscopy POC __ _ Patient Name: Lavelle Wells ?Gender: Male ?Date of : 2000 Age: 12 ? Admit Type: Outpatient Attending MD: Kenzie Cobb, ? Order #: [id number] __ _ Procedure: ? Upper GI endoscopy [...] Procedure Code(s): ? --- Professional --- ? 15036, Upper gastrointestinal endoscopy including esophagus, stomach, ? and either the duodenum and/or jejunum as appropriate; with biopsy, ? single or multiple ? --- Technical --- ? 76164, Upper gastrointestinal endoscopy including esophagus, stomach, ? and either the duodenum and/or jejunum as appropriate; with biopsy, ? single or multiple Diagnosis Code(s): ? --- Professional --- ? 530.13, Eosinophilic esophagitis ? 537.9, Unspecified disorder of stomach and duodenum ? --- Technical --- ? 530.13, Eosinophilic esophagitis ? 537.9, Unspecified disorder of stomach and duodenum CPT (R) 2012 [employer]. All Rights Reserved. The codes documented in this report are preliminary and upon disability hearing officer review may be revised to meet current compliance requirements. Dr. Kenzie Cobb Kenzie Cobb, 02/20/2013 9:04 AM This report has been signed electronically. Number of Addenda: 0 Note Initiated On: 02/20/2013 6:57 AM Procedure Date: ? 02/20/2013 6:57:32 AM ? This report has been signed electronically. [facility] 02/20/2013 6:57 AM MARBLE COPER Narrative [facility] - 02/20/2013 9:06 AM MARBLE COPER Procedure Note Kenzie Cobb MD - 02/20/2013 9:06 AM CST Kenzie Cobb MD GI PROCEDURE ORDERAB LES Performing Organization Address City/State/[facility] Co de Phone Number [facility] [facility] [place] [address] documented in this encounter Visit Diagnoses Diagnosis Diarrhea- Primary Abdominal pain, generalized EE (eosinophilic esophagitis) and Eosinophilic Enterocolitis Eosinophilic esophagitis ADHD (attention deficit hyperactivity disorder) Attention deficit disorder with hyperactivity Eosinophilia Eczema Contact dermatitis and other eczema, due to unspecified cause Allergic rhinitis Food allergy Other adverse food reactions, not elsewhere classified EE (eosinophilic esophagitis) Eosinophilic esophagitis documented in [...] Flowsheet., PACU $ Given 02/20/2013 11:32 AM MARBLE COPER 25 mcg isolyte-S pH 7.4 infusion 80 mL/hr, Intravenous, POST-OP CONTINUOUS, Starting on Sat02/20/13 at 1030, Until Sat02/20/13 at 1314, PACU $ New Bag/Syringe 02/20/2013 11:39 AM MARBLE COPER 80 mL/hr 80 mL/hr Current Rate 02/20/2013 10:15 AM MARBLE COPER 80 mL/hr 80 mL/hr lidocaine (LMX 4) 4 % cream Topical, ONCE, 1 dose, On Sat02/20/13 at 0845, Apply to bilateral hand iv sites . WASTE DISPOSAL INSTRUCTIONS: Black Bin Disposal required. $ Given 02/20/2013 7:53 AM MARBLE COPER documented in this encounter Active and Recently Administered Medications Times are shown in MARBLE COPER. Scheduled Medication Order 02/18/2013 02/19/2013 02/20/2013 [id number] [...] RN) documented in this encounter Care Teams Integrity Assessor Relationship Specialty Start Date End Date Lanny Hewitt MD PCP - General Pediatrics 11/09/11 12/30/13 documented as of this encounter
--- OUTSIDE RECORDS SUMMARY | 2024-03-21 22:03 | XMS_ITS | Encounter Summary ---
Author Organization [facility] Address [address] [place] [address] Care Team Providers Care Asphalt Dauber Name Role Phone Lanny Hewitt MD Primary Care Provider [phone] Reason for Visit * Reason Onset Date Comments Update 12/01/2012 Encounter Details Date Type Department Care Team (Late st Contact Info) Description 12/01/2012 Telephone [facility] Pediatrics - [address] [place] [address] Kenzie Cobb MD [address] [place] [address] Update Social History Tobacco Use Types Packs/Day [...] Telephone Encounter - Kenzie Cobb MD - 12/03/2012 1:29 PM CDT I talked to dad.. I will talk to colleagues in [place] as dad considering 2nd opinion from another [facility] before putting him on 6mp.. * Telephone Encounter - Ariana Kelly - 12/03/2012 11:15 AM CDT Dad returned Dr Cobb's call- can be reached at [phone] or [phone] * Telephone Encounter - Kenzie Cobb MD - 12/02/2012 9:50 AM CDT Actually just let me know a good phone number through [employer].. Thanks! :) * Telephone Encounter - Kenzie Cobb MD - 12/02/2012 9:42 AM CDT FYI - I left message for family to call back. Please call/text or text page me when a number I can call them back at when they call. Thanks! I discussed with Dr. Hinojosa at [facility] after receiving his clinic note. 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 This is hard to treat since diet alone not generally efficacious like it is in eosinophilic esophagitis and steroids are not a good termite control technician solution. In their anecdotal experience, they have had some success in decreasing the eo sinophilic inflammation with medicines like those that are used for IBD (Not saying that he has IBD) - such as 6MP. However, we do not know the residential progression of this disease. Dr. Hinojosa thinks that Lavelle may flare up again given some mild diarrhea recently and evidence of duodenitis on recent endoscopy at [place]. Dr. Hinojosa also agreed that may also be perfectly reasonable to hold off any medication as Lavelle generally doing well, and reasess in the future if his symptoms change.. * Telephone Encounter - Kenzie Cobb MD - 12/01/2012 9:08 AM CDT FYI - I left a message at [facility] for Dr. Owen to ask a few questions regarding Lavelle. If they call back.. Please call my cell/text or page me.. Thanks! documented in this encounter Plan of Treatment Not on file documented as of this encounter Visit Diagnoses Not on filedocumented in this encounter Care Teams Asphalt Dauber Relationship Specialty Start Date End Date Lanny Hewitt MD PCP - General Pediatrics 11/09/11 12/30/13 documented as of this encounter
--- OUTSIDE RECORDS SUMMARY | 2024-03-21 22:03 | XMS_ITS | Encounter Summary ---
Author Organization [facility] Address [address] [place] [address] Care Team Providers Care Tool Programmer Name Role Phone Laine Sharp MD Primary Care Provider Reason for Visit * Auth/Cert - Closed Specialty Diagnoses / Procedures Referred By Contac t Referred To Contact Diagnoses Abdominal pain, unspecified site Procedures COLONOSCOPY BIOPSY ENDOSCOPY GI UPPER WITH BIOPSY Referral ID Status Reason Start Date Expiration Date Visits Re quested Visits Authorized [id number] Closed 1 1 Encounter Details Date Type Department Care Team (Late Contact Info) Description 01/22/2014 8:45 AM BASEBALL INSPECTOR - 01/22/2014 10:15 AM [facility] Surgery [facility] - Endoscopy [address] [place] [id number] Kenzie Cobb MD [address] [place] [id number] COLONOSCOPY BIOPSY Surgery Details Date/Time Status Location OR Service Patient Class Case Class Case Type Trauma Case? 01/22/2014 8:45 AM Posted [facility] Endo 03 Gastroenterology Surgery Day Care Elective > 5 days Panel 1 Procedure LRB Anes Op Region Wound Class Comments COLONOSCOPY BIOPSY General Clean Conta minated ENDOSCOPY GI UPPER WITH BIOPSY General Clean [...] Comments Blood Pressure 96/54 01/22/2014 10:45 AM BASEBALL INSPECTOR Pulse 66 01/22/2014 10:45 AM BASEBALL INSPECTOR Temperature 36.7 ??C (98.1 ??F) 01/22/2014 10:[address] Respiratory Rate 14 01/22/2014 10:45 AM BASEBALL INSPECTOR Oxygen Saturation 100% 01/22/2014 10:45 AM BASEBALL INSPECTOR Inhaled Oxygen Concentration 100% 01/22/2014 1 0:13 AM BASEBALL INSPECTOR Weight 48.8 kg (107 lb 8 oz) 01/22/2014 6:44 AM BASEBALL INSPECTOR Height - - Body Mass Index - - documented in this encounter Discharge Summaries * Kenzie Cobb MD - 01/22/2014 10:05 AM CST Images from the original note were not included. SAME DAY SURGERY DISCHARGE SUMMARY Patient ID: Lavelle Michael [id number] 13 y.o. 2000 Discharge Date: 01/22/2014 Discharge [...] days Kenzie Cobb MD 01/22/2014 10:05 AM BALL INSPECTOR documented in this encounter Discharge Instructions * Discharge Instructions* Bharti Mora RN - 01/22/2014 10:25 AM BASEBALL INSPECTOR If your child has any worsening of their condition, please phone [phone] and ask for the doctor elderly companion for GI or return to the Emergency Department. BALL INSPECTOR documented in this encounter Medications at Time [...] Viewed &/or Printed on 01/22/2014 7:44 AM BALL INSPECTOR documented in this encounter Plan of Treatment Not on file documented as of this encounter Procedures Procedure Name Priority Date/Time Associated Diagnosis Comments ESOPHAGOGASTRODUODENOSCOPY (EGD) BIOPSY 01/22/2014 4:45 PM BASEBALL INSPECTOR Abdominal pain, unspecified site COLONOSCOPY BIOPSY (ANY METHOD) 01/22/2014 4:45 PM BASEBALL INSPECTOR Abdominal pain, unspecified site PATHOLOGY TISSUE EXAM (STL) STAT 01/09 8:47 AM BASEBALL INSPECTOR EGD Routine 01/22/2014 7:40 AM BASEBALL INSPECTOR EE (eosinophilic esophagitis) and Eosinophilic Enterocolitis Eosinophilia ENDOSCOPY, COLON, DIAGNOSTIC Routine 7:39 AM BASEBALL INSPECTOR EE (eosinophilic esophagitis) and Eosinophilic Enterocolitis Eosinophilia documented in this encounter Results * GROSS + MICRO EXAM (STL) (01/22/2014 8:47 AM BASEBALL INSPECTOR) Case Report Surgical Pathology Report ? Case: [id number] ? Authorizing Provider: ??Kenzie Cobb MD ? Collected: ? 01/22/2014 08:47 AM ? Ordering Location: ? [facility] ?Received: ?01/22/2014 10:52 AM ? Pathologist: ? Donte Eriberto, MD ? Specimens: ?? A) - Duodenal Biopsy ? B) - Stomach Biopsy ? C) - Esophageal Biopsy, proximal ? D) - Esophageal Biopsy, mid ? E) - Esophageal Biopsy, distal ? F) - Ileum Terminal ? G) - Colon Ascending ? H) - Cecum ? I) - Colon Descending ? J) - Rectosigmoid ? 01/26/2014 9:52 AM BASEBALL INSPECTOR [facility] Final Diagnosis 1) DUODENUM, BIOPSY: - [...] DESCRIPTION. ?? COMMENT: ??The patient's previous case ([id number]) has been reviewed in conjunction with the current case, with an increase in severity of the eosinophilic esophagitis. ??There are also conspicuous eosinophilic infiltrates within the large intestinal biopsies; however, the histopathologic significance of this finding is unclear. ??Clinical correlation is advised. 01/26/2014 9:52 AM [facility] Clinical History The patient is a 13-year-old boy with abdominal pain who underwent upper endoscopy and colonoscopy. The finding was linear furrowing. 01/26/2014 9:52 AM [facility] Gross Description The specimens are [...] toto as J1. ??(MR/pc) 01/26/2014 9:52 AM [facility] Microscopic Description 30 H&E. Sections [...] , 20/HPF. ?? (SS/pc) 01/26/2014 9:52 AM [facility] Disclaimer The performance characteristics of all immunohistochemical and indirect immunofluorescence stains (if any) cited in this report were determined by the [facility] of [facility] in compliance with CLIA `88 regulations. Some of these tests rely on the use of analyte-specific reagents and are subject to specific labeling requirements by the FDA. Such tests were developed by the [facility] of [facility] and have not been cleared or approved by the FDA. The FDA has determined that such clearance or approval is not necessary. These tests are used for clinical purposes and should not be regarded as investigational or for research. This case has been personally reviewed and interpreted by the attending (teaching) pathologist. 01/26/2014 9:52 AM BASEBALL INSPECTOR [facility] Pathology/Cytology DUODENAL BIOPSY SPECIMEN / Unknown 01/22/2014 8:47 AM BASEBALL INSPECTOR 01/22/2014 10:52 AM BASEBALL INSPECTOR Comment:unknown Miscellaneous samples (specimen) BIOPSY OF STOMACH / Unknown 01/22/2014 8:47 AM BASEBALL INSPECTOR 01/22/2014 10:52 AM BASEBALL INSPECTOR Comment:unknown Miscellaneous samples (specimen) ESOPHAGEAL BIOPSY SPECIMEN / Unknown 01/22/2014 8:48 AM BASEBALL INSPECTOR 01/22/2014 10:52 AM BASEBALL INSPECTOR Comment:unknown Miscellaneous samples (specimen) ESOPHAGEAL BIOPSY SPECIMEN / Unknown 01/22/2014 9:23 AM BASEBALL INSPECTOR 01/22/2014 10:52 AM BASEBALL INSPECTOR Comment:unknown Miscellaneous samples (specimen) ESOPHAGEAL BIOPSY SPECIMEN / Unknown 01/22/2014 9:23 AM BASEBALL INSPECTOR 01/22/2014 10:52 AM BASEBALL INSPECTOR Comment:unknown Miscellaneous samples (specimen) TERMINAL ILEUM RESECTION SPECIMEN / Unknown 01/22/2014 9:56 AM BASEBALL INSPECTOR 01/22/2014 10:52 AM BASEBALL INSPECTOR Comment:unknown Miscellaneous samples (specimen) ASCENDING COLON STRUCTURE / Unknown 01/22/2014 9:57 AM BASEBALL INSPECTOR 01/22/2014 10:52 AM BASEBALL INSPECTOR Comment:unknown Miscellaneous samples (specimen) CECUM STRUCTURE / Unknown 01/22/2014 9:57 AM BASEBALL INSPECTOR 01/22/2014 10:52 AM BASEBALL INSPECTOR Comment:unknown Miscellaneous samples (specimen) DESCENDING COLON STRUCTURE / Unknown 01/22/2014 9:58 AM BASEBALL INSPECTOR 01/22/2014 10:52 AM BASEBALL INSPECTOR Comment:unknown Miscellaneous samples (specimen) ENTIRE RECTOSIGMOID / Unknown 01/22/2014 9:58 AM BASEBALL INSPECTOR 01/22/2014 10:52 AM BASEBALL INSPECTOR Comment:unknown Kenzie Cobb MD LAB - PATHOLOGY/CYTO LOGY ORDERABLES [facility] [address] [place] [address] * EGD (01/22/2014 7:40 AM BASEBALL INSPECTOR) Report Endoscopy POC _ Patient Name: Lavelle Wells ?Gender: Male ?Date of : 2000 Age: 13 ? Admit Type: Outpatient Attending MD: Kenzie Cobb, ? Order #: [id number] _ Procedure: ? Upper GI endoscopy Indications: [...] Procedure Code(s): ? --- Professional --- ? 89657, Esophagogastrodu odenoscopy, flexible, transoral; with biopsy, ? single or multiple ? --- Technical --- ? 73954, Esophagogastrodu odenoscopy, flexible, transoral; with biopsy, ? single or multiple Diagnosis Code(s): ? --- Professional --- ? 530.9, Unspecified disorder of esophagus ? 789.09, Abdominal pain, other specified site ? 530.13, Eosinophilic esophagitis ? --- Technical --- ? 530.9, Unspecified disorder of esophagus ? 789.09, Abdominal pain, other specified site ? 530.13, Eosinophilic esophagitis CPT copyright 2013 [employer]. All rights reserved. The codes documented in this report are preliminary and upon medical coder review may be revised to meet current compliance requirements. Dr. Kenzie Cobb Kenzie Cobb, 01/22/2014 9:30 AM This report has been signed electronically. Number of Addenda: 0 Note Initiated On: 01/21/2014 7:40 AM Procedure Date: ? 01/22/2014 7:40:00 AM ? This report has been signed electronically. [facility] 01/22/2014 7:40 AM BASEBALL INSPECTOR Kenzie Cobb MD GI PROCEDURE ORDERAB LES [facility] [address] [place] [address] * ENDOSCOPY, COLON, DIAGNOSTIC (01/22/2014 7:39 AM BASEBALL INSPECTOR) Report Endoscopy POC _ Patient Name: Lavelle Wells ?Gender: Male ?Date of : 2000 Age: 13 ? Admit Type: Outpatient Attending MD: Kenzie Cobb, ? Order #: [id number] _ Procedure: ? Colonoscopy Indications: ? Generalized [...] Procedure Code(s): ? --- Professional --- ? 94504, Colonoscopy, flexible, proximal to splenic flexure; with biopsy, ? single or multiple ? --- Technical --- ? 47730, Colonoscopy, flexible, proximal to splenic flexure; with biopsy, ? single or multiple Diagnosis Code(s): ? --- Professional --- ? 789.07, Abdominal pain, generalized ? 787.91, Diarrhea ? --- Technical --- ? 789.07, Abdominal pain, generalized ? 787.91, Diarrhea CPT copyright 2013 [employer]. All rights reserved. The codes documented in this report are preliminary and upon medical coder review may be revised to meet current compliance requirements. Dr. Kenzie Cobb Kenzie Cobb, 01/22/2014 10:04 AM This report has been signed electronically. Number of Addenda: 0 Note Initiated On: 01/21/2014 7:39 AM Procedure Date: ? 01/22/2014 7:39:00 AM ? This report has been signed electronically. [facility] 01/22/2014 7:39 AM BASEBALL INSPECTOR Kenzie Cobb MD GI PROCEDURE ORDERAB LES Performing Organization Address City/State/[facility] Co de Phone Number [facility] [address] [place] [address] documented in this encounter Visit Diagnoses Diagnosis EE (eosinophilic esophagitis) and Eosinophilic Enterocolitis Eosinophilic esophagitis Eosinophilia Abdominal pain, unspecified site documented in this encounter Administered Medications Inactive Administered Medications - up to 3 most recent administrations Medication Order MAR Action Action Date Dose Rate Site isolyte-S pH 7.4 infusion 75 mL/hr, Intravenous, POST-OP CONTINUOUS, Starting on Sat01/22/14 at 1015, Until Sat01/22/14 at 1200, PACU Current Rate 01/22/2014 10:05 AM BASEBALL INSPECTOR 75 mL/hr 75 mL/hr lidocaine (LMX 4) 4 % cream Topical, ONCE, 1 dose, On Sat01/22/14 at 0630, Apply to bilateral hands . WASTE DISPOSAL INSTRUCTIONS: Black Bin Disposal required. $ Given 01/22/2014 6:42 AM BASEBALL INSPECTOR documented in this encounter Active and Recently Administered Medications Times are shown in BASEBALL INSPECTOR. Scheduled Medication Order 01/20/2014 01/21/2014 01/22/2014 lidocaine [...] PACU 1005 (Current Rate - Provider: Bharti Mora, MARGARET)1015 (Due)1048 (Stopped - Provider: Bharti Mora RN) documented in this encounter Care Teams Tool Programmer Relationship Specialty Start Date End Date Laine Sharp MD [address] [id number] PCP - General Pediatrics 12/31/13 documented as of this encounter
--- OUTSIDE RECORDS SUMMARY | 2024-03-21 22:03 | XMS_ITS | Encounter Summary ---
Author Organization [facility] Address [address] [facility] [place] [address] Care Team Providers Care Mainstreaming Facilitator Name Role Phone Laine Sharp MD Primary Care Provider [phone] Reason for Visit * Reason Onset Date Comments MEDICATION REFILL 12/13/2014 Encounter Details Date Type Department Care Team (Late st Contact Info) Description 12/13/2014 Refill [facility] Pediatrics - GI [address] [place] [address] Kenzie Cobb MD [facility] [place] [address] MEDICATION REFILL Social History Tobacco Use Types [...] Telephone Encounter - Blossom Lujan RN - 12/13/2014 9:10 AM CDT Received refill request for nexium. This refill was refused in October & family was told that they needed to schedule f/u. Again refused refill, no appts pending. documented in this encounter Plan of Treatment Not on file documented as of this encounter Visit Diagnoses Not on filedocumented in this encounter Care Teams Mainstreaming Facilitator Relationship Specialty Start Date End Date Laine Sharp MD [address] [id number] PCP - General Pediatrics 12/31/13 documented as of this encounter
--- OUTSIDE RECORDS SUMMARY | 2024-03-21 22:03 | XMS_ITS | Encounter Summary ---
Author Organization [facility] Address [address] [place] [address] Care Team Providers Care Ship'S Cook Name Role Phone Lanny Hewitt MD Primary Care Provider [phone] Reason for Visit * Reason Onset Date Comments Question 11/24/2012 Encounter Details Date Type Department Care Team (Late st Contact Info) Description 11/24/2012 Telephone [facility] Pediatrics - GI [address] [place] [address] Kenzie Cobb MD [address] [place] [address] Question Social History Tobacco Use Types Packs/Day [...] Telephone Encounter - Kenzie Cobb MD - 11/24/2012 9:56 AM CDT Talked to dad.. Per dad, Juan C gave tentaive diagnosis of IBD based on eosinophils throughoutGI tract.. Wanted to start 6mp. Dad wanting to know my opinion and would like another opinion at [facility] or similar before starting immunomodulator. I am going to wait to get notes from [facility] and present to our GI group.. Will talke with dad after I have seen and discussed. * Telephone Encounter - Kiley Silva - 11/24/2012 9:30 AM CDT Patient recently returned for [facility] Clinic in [place] and dad would like to discuss visit with Dr. Cobb. documented in this encounter Plan of Treatment Not on file documented as of this encounter Visit Diagnoses Not on filedocumented in this encounter Care Teams Ship'S Cook Relationship Specialty Start Date End Date Lanny Hewitt MD PCP - General Pediatrics 11/09/11 12/30/13 documented as of this encounter
--- OUTSIDE RECORDS SUMMARY | 2024-03-21 22:03 | XMS_ITS | Encounter Summary ---
Author Organization [facility] Address [address] [facility] [place] [address] Care Team Providers Care Bag Machine Tender Name Role Phone Lanny Hewitt MD Primary Care Provider Reason for Visit * Reason Onset Date Comments MEDICATION REFILL 10/12/2013 Encounter Details Date Type Department Care Team (Late st Contact Info) Description 10/12/2013 Refill [facility] Pediatrics - Allergy [address] [place] [address] Kunal Goff MD [address] [place] [address] MEDICATION REFILL Social History Tobacco Use Types [...] encounter Miscellaneous Notes * Telephone Encounter - Maura Diamond RN - 10/12/2013 8:08 AM CDT Denied refill request for Flovent because patient last seen 07/2012 with no F/U scheduled. documented in this encounter Plan of Treatment Not on file documented as of this encounter Visit Diagnoses Not on filedocumented in this encounter Care Teams Bag Machine Tender Relationship Specialty Start Date End Date Lanny Hewitt MD PCP - General Pediatrics 11/09/11 12/30/13 documented as of this encounter
--- OUTSIDE RECORDS SUMMARY | 2024-03-21 22:03 | XMS_ITS | Encounter Summary ---
Author Organization [facility] Address [address] [place] [address] Care Team Providers Care Bench Assembler Name Role Phone Laine Sharp MD Primary Care Provider Reason for Visit * Auth/Cert Specialty Diagnoses / Procedures Referred By Contac t Referred To Contact Diagnoses EE (eosinophilic esophagitis) EE (eosinophilic esophagitis) Procedures ENDOSCOPY GI UPPER WITH BIOPSY Referral ID Status Reason Start Date Expiration Date Visits Re quested Visits Authorized [id number] 1 1 Encounter Details Date Type Department Care Team (Late st Contact Info) Description 10/01/2016 1:45 PM CDT Anesthesia Event [facility] - Endoscopy [address] [place] [address] Willie Levi MD [address] [place] [address] Joaquin Cedeño MD Formerly [facility] [place] [address] Anesthesia Record Procedure Summary Procedure Name Responsible Anesthesiologist Anesthesia Start Time Anesthesia Stop Time ENDOSCOPY GI UPPER WITH BIOPSY Willie Levi MD 10/01/16 1345 10/01/16 1413 Events Date Time Event Comment 10/01/2016 1332 1345 An Start 1345 An Start Data 1349 PT Reassessment 1349 An Induction 1352 Time Out Anesthesia part icipated in timeout at the time documented in the record by nursing 1401 An Emergence 1409 an stop data 1409 Electnc Sig 1413 An Stop Meds Name Total fentaNYL 100 mcg/2mL injection 50 mcg midazolam 2 mg/2mL injection 2 mg lidocaine (MPF) 2% injection 40 mg propofol 500 mg/50mL injection 259.07 mg isolyte-S pH 7.4 infusion 900 mL * Agents Name Insp. N2O Exp. Sevoflurane Insp. Sevoflurane * Blood No blood administrations on file. Lines, Drains, and Airways Type Details Placement Removal Procedural Site (Incision) 10/01/16; Mouth; 10/01/16; 2105 10/01/16 0000 by Edel Munoz RN 10/01/16 2105 by Generic, Auto Release Peripheral IV Date: 10/01/16; Time: 1330; Orientation: Right; Placed By: Reina PARADA; Tolerance: Well 10/01/16 1330 by Andrew Guillermo Anes Asst 10/01/16 1545 by Zaira Rojo RN documented in this encounter Social History [...] Progress Notes * Willie Levi MD - 10/01/2016 2:56 PM CDT ANESTHESIA POSTPROCEDURE EVALUATION Lavelleaddi Michael is a 16 y.o. male Temp: 99.4 ??F Pulse: 70 Resp: 18 BP: 112/63 SpO2: 100 % Anesthesia Type: general Mental status: sufficiently recovered from acute administration [...] Consult Notes * Willie Levi MD - 10/01/2016 1:17 PM CDT ANESTHESIA PREOPERATIVE EVALUATION NOTE Procedure: ENDOSCOPY GI UPPER WITH BIOPSY Vitals: Patient Vitals for the past 24 hrs (Last 5 readings): BP Temp Pulse Resp SpO2 Height Weight 10/01/16 1313 133/73 99.4 ??F 99 16 96 % 1.712 m (5' 7.4 ) 90.9 kg (200 lb 6.4 oz) ANESTHESIA PRE-EVALUATION NOTE History of Present Illness: Lavelle presents for the procedure for followup of eosinophilic esophagitis. Mom and patient denies any recent illness or prior anesthesia complications Physical Exam: Orientation: Orientation X3 Airway/Mallampati Score: II Mouth Opening Distance: 3 fingerwidths Neck ROM: full TM Distance: > 3 FB Teeth: normal (Upper and lower braces) Heart: regular rate rhythm Lungs: normal ANESTHESIA PLAN SECTION ASA Score: 2 NPO Status: No solids since midnight and No liquids within 2 hours Anesthesia Plan: MAC Planned Induction: intravenous Planned Postop Destination: PACU Anesthetic plan was discussed with: family and father and mother The patient's procedural Anesthetic Plan with discussed with the custody assistant. Additional findings/comments: I personally evaluated the patient including heart, lungs and airway. BMI, Height, Weight Tobacco History Estimated body mass index is 31.01 kg/(m^2) as calculated from the following: Height as of this encounter: 1.712 m (5' 7.4 ). Weight as of this encounter: 90.9 kg (200 lb 6.4 oz). History Smoking Status ??? Never Smoker Smokeless Tobacco ??? Never Used Alcohol History Drug History History Alcohol Use No History Drug Use No Outpatient Medications: Inpatient Medications: No current outpatient prescriptions on file. No current facility-administered medications for this encounter. Allergies: Allergies Allergen Reactions ??? Milk Protein ??? Other CLEAR TAPE CAUSED IRRITATION. PLEASE USE CLOTH TAPE ??? Peanut-Derived ??? Wheat Problem List: Patient Active Problem List Diagnosis [...] 4 weeks 05/26/12 = 954 off prednisone CRP elevated, IgG- 360, IgE [...] EE (eosinophilic esophagitis) and Eosinophilic Enterocolitis 11/09/2011 EGD on 11/16/11 showed severe eosinophilic esophagitis,gastritis,duodunitis, and colitis. Treated with po prednisone until late December,, and he was started on flovent 220 mcg 2 puffs swallow bid 01/09/12. He was on 6 food elimination diet for 6 weeks, without clinical improvement. An elimination diet for milk, wheat, peanut and tree nuts, with continued swallowed Flovent was recommended on 02/12/12. ??? ADHD (attention deficit hyperactivity disorder) 11/09/2011 [...] BIOPSY ??? Orchiopexy 11/27/2002 RACHEL-Dr Beaver ??? MA EGD FLEX TRANSORAL W BX SNGL OR MULT NOV 2011 dx with EE Lab Tests: No results found in the last 2 wks No results found in the last 2 wks No results found in the last 2 wks documented in this encounter Plan of Treatment Not on file documented as of this encounter Visit Diagnoses Not on filedocumented in this encounter Administered Medications Inactive Administered Medications - up to 3 most recent administrations Medication Order MAR Action Action Date Dose Rate Site fentaNYL (PF) (SUBLIMAZE) injection PRN, Starting on Sat10/01/16 at 1349, Until Sat10/01/16 at 1413, Anesthesia Intra-op $ Given 10/01/2016 1:49 PM CDT 50 mcg isolyte-S pH 7.4 infusion CONTINUOUS PRN, Starting on Sat10/01/16 at 1345, Until Sat10/01/16 at 1413, Anesthesia Intra-op $ New Bag/Syringe 10/01/2016 1:51 PM CDT $ New Bag/Syringe 10/01/2016 1:45 PM CDT lidocaine (XYLOCAINE MPF) 2 % injection PRN, Starting on Sat10/01/16 at 1343, Until Sat10/01/16 at 1413, Anesthesia Intra-op $ Given 10/01/2016 1:43 PM CDT 40 mg midazolam (VERSED) injection PRN, Starting on Sat10/01/16 at 1343, Until Sat10/01/16 at 1413, Anesthesia Intra-op $ Given 10/01/2016 1:43 PM CDT 2 mg propofol (DIPRIVAN) infusion CONTINUOUS PRN, Starting on Sat10/01/16 at 1349, Until Sat10/01/16 at 1413, Anesthesia Intra-op Rate Change 10/01/2016 1:55 PM CDT 200 mcg/kg/min 109.08 mL/hr Rate Change 10/01/2016 1:52 PM CDT 250 mcg/kg/min 136.35 m L/hr $ New Bag/Syringe 10/01/2016 1:49 PM CDT 300 mcg/kg/min 16 3.62 mL/hr documented in this encounter Care Teams Bench Assembler Relationship Specialty Start Date End Date Laine Sharp MD [address] [phone] PCP - General Pediatrics 12/31/13 documented as of this encounter
--- OUTSIDE RECORDS SUMMARY | 2024-03-21 22:03 | XMS_ITS | Encounter Summary ---
Author Organization [facility] Address [address] [place] [address] Care Team Providers Care Magazine Filler Name Role Phone Laine Sharp MD Primary Care Provider [phone] Reason for Visit * Reason Onset Date Comments Question 09/07/2016 Encounter Details Date Type Department Care Team (Late st Contact Info) Description 09/07/2016 Telephone [facility] Pediatrics - [address] [place] [address] Kenzie Cobb MD [facility] [place] [address] Question Social History Tobacco Use Types Packs/Day [...] encounter Miscellaneous Notes * Telephone Encounter - Lissette Ya - 09/14/2016 10:24 AM CDT [facility] paperwork signed and faxed to [phone], copy sent to scanning. Tried faxing to mom's fax number but fax would not go through. * Telephone Encounter - Tiffany Monzon RN - 09/13/2016 9:04 AM CDT Spoke to mom, needs FMLA paperwork for the scope in September. Paperwork filled out and placed in MD mailbox for signature * Telephone Encounter - Damaris Lopez RN - 09/12/2016 10:35 AM CDT Called mom ... No answer and unable to leave a message. Will try again later. I see no mention of FMLA paperwork in chart. * Telephone Encounter - Tiffany Monzon RN - 09/07/2016 9:58 AM CDT Left message for mom to call the office * Telephone Encounter - Lissette Ya - 09/07/2016 9:36 AM CDT Mom has questions regarding FMLA paperwork. documented in this encounter Plan of Treatment Not on file documented as of this encounter Visit Diagnoses Not on filedocumented in this encounter Care Teams Magazine Filler Relationship Specialty Start Date End Date Laine Sharp MD [address] [place] [phone] PCP - General Pediatrics 12/31/13 documented as of this encounter
--- OUTSIDE RECORDS SUMMARY | 2024-03-21 22:03 | XMS_ITS | Encounter Summary ---
Author Organization [facility] Address [address] [facility] [address] Care Team Providers Care Spanish Interpreter/Translator Name Role Phone Lanny Hewitt MD Primary Care Provider [phone] Reason for Visit * Reason Onset Date Comments Refill Request 09/24/2012 Encounter Details Date Type Department Care Team (Late st Contact Info) Description 09/24/2012 Telephone [facility] Pediatrics - Allergy [address] [place] [address] Kunal Goff MD [address] [place] [address] Refill Request Social History Tobacco Use Types [...] Telephone Encounter - Sari Lorenzo RN - 09/24/2012 11:22 AM CDT [facility] did not receive approved refills for Flovent 220mcg. Contacted [facility] in [place], [place] and spoke to [facility]. Verbally approved 6 refills of Flovent, per Dr. Franco. Verified instructions: Take 2 puffs twice daily. Take puffs orally while holding breath 1 minute apart, then drink some water. Indications: Eosinophilic Esophagitis documented in this encounter Plan of Treatment Not on file documented as of this encounter Visit Diagnoses Not on filedocumented in this encounter Care Teams Spanish Interpreter/Translator Relationship Specialty Start Date End Date Lanny Hewitt MD PCP - General Pediatrics 11/09/11 12/30/13 documented as of this encounter
--- OUTSIDE RECORDS SUMMARY | 2024-03-21 22:03 | XMS_ITS | Encounter Summary ---
Author Organization [facility] Address [address] [facility] [place] [address] Care Team Providers Care Chief Engineer Drilling And Recovery Name Role Phone Laine Sharp MD Primary Care Provider [phone] Reason for Visit * Reason Onset Date Comments Scheduling 08/29/2016 Encounter Details Date Type Department Care Team (Late st Contact Info) Description 08/29/2016 Telephone [facility] Pediatrics - [address] [place] [address] Kenzie Cobb MD [facility] [place] [address] Scheduling Social History Tobacco Use Types Packs/Day [...] Telephone Encounter - Tiffany Monzon RN - 08/29/2016 9:06 AM CDT Orders verified. Prep letter mailed to home address. * Telephone Encounter - Kiley Silva - 08/29/2016 8:51 AM CDT Spoke with mom, scheduled outpatient EGD for 10/01/[address] Cobb. documented in this encounter Plan of Treatment Not on file documented as of this encounter Results * HELICOBACTER PYLORI UREASE (STL) (10/01/2016 1:59 PM CDT) Helicobacter pylori Urease Initial Negative Negative 10/02/2016 3:45 PM CDT [facility] Helicobacter pylori Urease Final Negative Negative 10/02/2016 3:45 PM CDT [facility] Comment:This is an appended report. These results have been appended to a previously preliminary verified report. Microbiology GASTRIC ANTRAL BIOPSY SPECIMEN / Unknown Collection / Unknown 10/01/2016 1:59 PM CDT 10/01/2016 2:30 PM CDT Kenzie Cobb MD LAB - MICROBIOLOGY O RDERABLES Performing Organization Address City/State/[facility] Co de Phone Number [facility] [place] [phone] documented in this encounter Visit Diagnoses Diagnosis EE (eosinophilic esophagitis)- Primary Eosinophilic esophagitis documented in this encounter Care Teams Chief Engineer Drilling And Recovery Relationship Specialty Start Date End Date Laine Sharp MD [address] [phone] PCP - General Pediatrics 12/31/13 documented as of this encounter
--- OUTSIDE RECORDS SUMMARY | 2024-03-21 22:03 | XMS_ITS | Encounter Summary ---
Author Organization [facility] Address [address] [facility] [place] [address] Care Team Providers Care Last Ironer Name Role Phone Laine Sharp MD Primary Care Provider [phone] Reason for Referral * Procedure - Closed Specialty Diagnoses / Procedures Referred By Leonard gonzalez Referred To Contact Gastroenterology Diagnoses EE (eosinophilic esophagitis) Eosinophilia Procedures ENDOSCOPY, COLON, DIAGNOSTIC Kenzie Cobb MD [address] [place] [address] Referral ID Status Reason Start Date Expiration Date Visits Re quested Visits Authorized [id number] Closed 01/12/2014 07/11/2014 1 1 OVEMENT LEAD * Procedure - Closed Specialty Diagnoses / Procedures Referred By Leonard gonzalez Referred To Contact Gastroenterology Diagnoses EE (eosinophilic esophagitis) Eosinophilia Procedures EGD Kenzie Cobb MD [address] [place] [address] Referral ID Status Reason Start Date Expiration Date Visits Re quested Visits Authorized [id number] Closed 01/12/2014 07/11/2014 1 1 OVEMENT LEAD Reason for Visit * Reason Comments Follow-up occassional upset st omach and heartburn Encounter Details Date Type Department Care Team (Latest Contact Info) Description 01/12/2014 10:26 AM IMPROVEMENT LEAD - 01/12/2014 11:59 PM IMPROVEMENT LEAD Hospital Encounter [facility] - GI [address] [place] [address] Kenzie Cobb MD [address] [place] [address] Discharge Disposition: Home or Self Care Social [...] Sign Reading Time Taken Comments Blood Pressure 100/66 01/12/2014 10:48 AM IMPROVEMENT LEAD Pulse - - Temperature - - Respiratory Rate - - Oxygen Saturation - - Inhaled Oxygen Concentration - - Weight 53.3 kg (117 lb 8.1 oz) 01/13/20 14 10:48 AM IMPROVEMENT LEAD Height 164.2 cm (5' 4.65 ) 01/12/2014 1 0:48 AM IMPROVEMENT LEAD Body Mass Index 19.77 01/12/2014 10:48 AM IMPROVEMENT LEAD Body Mass Index Percentile 54.12% 01/12 10:48 AM IMPROVEMENT LEAD Growth Chart: [facility] (Boys, 2-2 0 Years) documented in this encounter Discharge Instructions * Patient Instructions* Kenzie Cobb MD - 01/12/2014 11:22 AM IMPROVEMENT LEAD Increase Nexium 40 mg daily Increase Flovent to 2 puffs twice daiy We will schedule an upper and lower endoscopy OVEMENT LEAD documented in this encounter Medications at Time [...] Progress Notes * Kenzie Cobb MD - 01/12/2014 11:05 AM CST CHIEF COMPLAINT: Follow-up Lavelle Michael was seen in the Pediatric GI clinic along with his parents in follow up eosinophilicenteropathy HISTORY: Lavelle is a 13 y.o. male who presents with a chief complaint of follow up eosinophilic enteropathy (esophagitis, gastristis, [id number]) Lavelle has a complex medical history. He initially presented in November 2011 for symptoms of abdominal pain and diarrhea with profound peripheral eosinophilia. Infectious etiologies ruled out. ONcology involved, BM and labs not c/w malignancy. He underwent EGD, colonoscopy which revealed eosinophils throughout the GI tract. IMproved with oral steroids, that resurfaced after steroids weaned. He was referred to [facility]. Although initially had recommended 6mp for maintenance of remission, family was hesistant . I had a Phone conversation With Dr. Hinojosa as well, and umang family's hestiation as well as lack of robust data guiding immunomodulator management in this case. We elected to hold off on this and follow him clinically. Lavelle has acutally done remarkably well Last EGD/colonoscopy in February 2013 revealed EoE but no eosinophilis throughout the rest of the GI tract! He has generally been doing well since that time. Occasionally (perhaps once per month) he has significant abdominal pain. He also occasionally describes chest burning. He is taking swallowed Floventonce daily and remains on PPI. He is only taking Flovent once daily because that is what family though prescription said. He is not having diarrhea He has gained ~30 lbs since 2011 PAST MEDICAL HISTORY: Lavelle's past medical history [...] upper 02/20/2013 ENDOSCOPY GI UPPER WITH BIOPSY No history on file. SOCIAL HISTORY: History Social History Narrative Lives with mother, father, brother, and sister. Attends 7th grade. [email or web address]. [facility] [place] [facility] FAMILY HISTORY: Family History Problem Relation Age of Onset ??? GERD - Gastroesophageal Reflux Disease Father REVIEW OF SYSTEMS GEN: no fevers, chills or weight loss HEENT: no cough, cold, congestion, rhinorrhea, mouth ulcers, sore throat CV: no known cardiac disease PULM: no known respiratory disorders GI: see HPI above; positive for abdominal pain, neg for vomiting diarrhea, constipation, hematochezia and melena : no dysuria or hematuria HEME: no easy bleeding or bruising NEURO: no headaches, no seizures PSYCH: no history of mental illness ALL/IMMUNO: no history of seasonal allergies CURRENT MEDICATIONS: Current Outpatient Prescriptions Medication Sig Dispense Refill ??? lisdexamfetamine (VYVANSE) 50 MG capsule Take 50 mg by mouth every morning. ??? esomeprazole (NEXIUM) 40 MG capsule Take 1 Cap by mouth daily before breakfast for 30 days. 30 Cap 3 ??? loratadine (CLARITIN) 10 MG tablet Take 10 mg by mouth once daily. ??? fluticasone hfa (FLOVENT HFA) 220 MCG/ACT inhaler Take 2 puffs twice daily. Take puffs orally while holding breath 1 minute apart, then drink some water. Indications: Eosinophilic Esophagitis 1 Inhaler 6 ??? mometasone (ELOCON) 0.1 % ointment Apply to affected area once daily as needed (for red, itcheyskin). 15 g 6 ??? albuterol HFA (PROVENTIL;VENTOLIN;PROAIR) 108 (90 BASE) MCG/ACT inhaler Inhale 2 Puffs by mouthevery 6 hours as needed. No current facility-administered medications for this encounter. PHYSICAL EXAM: BP 100/66 Wt 53.3 kg (117 lb 8.1 oz) BMI 19.77 kg/m2 GEN: awake, alert, interactive with exam in no acute distress HEENT: sclera anicteric, mucus membranes moist, no oral lesion CV: regular rate and rhythm without murmur LUNGS: clear to auscultation bilaterally, equal aeration bilat ABD: soft, not apparently tender or distended, no organomegaly, bowel sounds present : normal Jonnie 1 EXT: warm and well perfused NEURO: no obvious deficits PSYCH: appropriate mentation for age RESULTS REviewed results as in HPI above. 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 Some increase in symptoms in past several months PLAN: Orders Placed This Encounter ??? EGD Standing Status: Future Number of Occurrences: Standing Expiration Date: 01/12/2015 ??? ENDOSCOPY, COLON, DIAGNOSTIC Standing Status: Future Number of Occurrences: Standing Expiration Date: 01/12/2015 ??? esomeprazole (NEXIUM) 40 MG capsule Sig: Take 1 Cap by mouth daily before breakfast for 30 days. Dispense: 30 Cap Refill: 3 Increase Nexium 40 mg daily Increase Flovent to 2 puffs twice daiy We will schedule an upper and lower endoscopy Plan of care, including education on the safe and effective use of medication(s) and/or medical equipment if prescribed, was discussed with Lavelle's parents who verbalized understanding and agreed with the treatment options discussed. 01/12/2014 1:01 PM OVEMENT LEAD documented in this encounter Plan of Treatment Not on file documented as of this encounter Results * EGD (01/22/2014 7:40 AM IMPROVEMENT LEAD) Report Endoscopy POC _ Patient Name: Lavelle Wells ?Gender: Male ?Date of : 2000 Age: 13 ? Admit Type: Outpatient Attending MD: Kenzie Cobb, ? Order #: [id number] _ Procedure: ? Upper GI endoscopy Indications: [...] Procedure Code(s): ? --- Professional --- ? 32943, Esophagogastrodu odenoscopy, flexible, transoral; with biopsy, ? single or multiple ? --- Technical --- ? 58687, Esophagogastrodu odenoscopy, flexible, transoral; with biopsy, ? single or multiple Diagnosis Code(s): ? --- Professional --- ? 530.9, Unspecified disorder of esophagus ? 789.09, Abdominal pain, other specified site ? 530.13, Eosinophilic esophagitis ? --- Technical --- ? 530.9, Unspecified disorder of esophagus ? 789.09, Abdominal pain, other specified site ? 530.13, Eosinophilic esophagitis CPT copyright 2013 [employer]. All rights reserved. The codes documented in this report are preliminary and upon automatic riveting machine operator review may be revised to meet current compliance requirements. Dr. Kenzie Cobb Kenzie Cobb, 01/22/2014 9:30 AM This report has been signed electronically. Number of Addenda: 0 Note Initiated On: 01/21/2014 7:40 AM Procedure Date: ? 01/22/2014 7:40:00 AM ? This report has been signed electronically. [facility] 01/22/2014 7:40 AM IMPROVEMENT LEAD Kenzie Cobb MD GI PROCEDURE ORDERAB LES Performing Organization Address City/State/[facility] Co de Phone Number [facility] [address] [place] [address] * ENDOSCOPY, COLON, DIAGNOSTIC (01/22/2014 7:39 AM IMPROVEMENT LEAD) Report Endoscopy POC _ Patient Name: Lavelle Wells ?Gender: Male ?Date of : 2000 Age: 13 ? Admit Type: Outpatient Attending MD: Kenzie Cobb, ? Order #: [id number] _ Procedure: ? Colonoscopy Indications: ? Generalized [...] Procedure Code(s): ? --- Professional --- ? 92984, Colonoscopy, flexible, proximal to splenic flexure; with biopsy, ? single or multiple ? --- Technical --- ? 89336, Colonoscopy, flexible, proximal to splenic flexure; with biopsy, ? single or multiple Diagnosis Code(s): ? --- Professional --- ? 789.07, Abdominal pain, generalized ? 787.91, Diarrhea ? --- Technical --- ? 789.07, Abdominal pain, generalized ? 787.91, Diarrhea CPT copyright 2013 [employer]. All rights reserved. The codes documented in this report are preliminary and upon automatic riveting machine operator review may be revised to meet current compliance requirements. Dr. Kenzie Cobb Kenzie Cobb, 01/22/2014 10:04 AM This report has been signed electronically. Number of Addenda: 0 Note Initiated On: 01/21/2014 7:39 AM Procedure Date: ? 01/22/2014 7:39:00 AM ? This report has been signed electronically. [facility] 01/22/2014 7:39 AM IMPROVEMENT LEAD Kenzie Cobb MD GI PROCEDURE ORDERAB LES Performing Organization Address City/State/[facility] Co de Phone Number [facility] [address] [place] [address] documented in this encounter Visit Diagnoses Diagnosis EE (eosinophilic esophagitis) and Eosinophilic Enterocolitis Eosinophilic esophagitis Eosinophilia documented in this encounter Care Teams Last Ironer Relationship Specialty Start Date End Date Laine Sharp MD [address] [facility] [address] [place] [phone] PCP - General Pediatrics 12/31/13 documented as of this encounter
--- OUTSIDE RECORDS SUMMARY | 2024-03-21 22:04 | XMS_ITS | Encounter Summary ---
Author Organization [facility] Address [address] [place] [address] Care Team Providers Care Competitive Intelligence Manager Name Role Phone Lanny Hewitt MD Primary Care Provider [phone] Encounter Details Date Type Department Care Team (Latest Contact Info) Description 02/15/2012 11:00 AM VALUATION CONSULTANT - 02/15/2012 11:59 PM [facility] Hospital Encounter [facility] - Nutrition Services [address] [place] [id number] Zaira Ruiz, RD/[place] [address] [place] [id number] Discharge Disposition: Home or Self Care Social [...] - Inhaled Oxygen Concentration - - Weight 39.9 kg (87 lb 15.4 oz) 02/15/20 12 11:00 AM VALUATION CONSULTANT Height 147 cm (4' 9.87 ) 02/15/2012 11: 00 AM VALUATION CONSULTANT Body Mass Index 18.46 02/15/2012 11:00 AM VALUATION CONSULTANT Body Mass Index Percentile 54.42% 02/14 11:00 AM VALUATION CONSULTANT Growth Chart: [facility] (Boys, 2-2 0 Years) documented in this encounter Medications at Time [...] as of this encounter Progress Notes * Zaira Menon, PETER/LD - 02/15/2012 11:34 AM CST Initial Nutrition Assessment Lavelle Michael is a 11 y.o. 7 m.o. male. Pt was referred by Allergy and Immunology due to dx of EoE. The encounter diagnosis was EE (eosinophilic esophagitis). Past Medical History Diagnosis Date ??? ADHD (attention deficit hyperactivity disorder) on adderall and vyvanse ??? Abdominal pain, diarrhea, emesis 11/09/2011 admitted hosp 3-4 week hx ??? Eosinophilia 11/10/2011 ??? Unspecified asthma dx 2004 exercise induced asthma--uses albuterol prn--last used 06/2011--never hosp last ER visit 2008 Assessment: Food/nutrition related history: Review of medical record and parent report note previous trial of six food elimination diet. Recommendations are now to avoid milk, wheat, peanut and tree nuts. Parents appear comfortable and knowledge re: label reading for safe and unsafe foods. Parents asked appropriate questions re: optimal nutrition. Parents report Lavelle does not eat much meat, and his iron has been low. Lavelle is taking a chewable Flinstones vitamin with Fe. He does eat a variety of wheat- free pastas such as brown rice pasta, as well as some other foods marketed to families with multiple food allergies, such as the [employer] Life brand. Lavelle continues to complain of stomach aches, and reports eggs are a trigger for heada ches. Mother reports that in the past Lavelle has been a very picky eater, but he is now more accepting of a greater variety of foods. Typical intake: Breakfast at home: cereal (rice chex, kix, apple jacks) with rice milk Lunch: juice x 2, fruit or vegetable Snack: enjoy life foods (deven crackers, cookies), fruit cups, jello, hot dog Dinner: meat, vegetable, and fruit Current diet: Elimination of milk, wheat, peanut and tree nuts Anthropometrics: Weight: 39.9 kg (87 lb 15.4 oz) 32.4%ile based on CDC 2-20 Years [id number] data. Height: 147 cm (4' 9.87 ) 21.03%ile based on CDC 2-20 Years [id number] data. Body mass index is 18.46 kg/(m^2). 54.44%ile based on CDC 2-20 Years BMI-for-age data. Wt Readings from Last 3 Encounters: 02/15/12 39.9 kg (87 lb 15.4 oz) (32.40%*) 02/12/12 39.5 kg (87 lb 1.3 oz) (30.65%*) 01/11/12 39.4 kg (86 lb 13.8 oz) (32.18%*) * Growth percentiles are based on CDC 2-20 Years data. Growth has been appropriate along his own curve. Current Outpatient Prescriptions Medication ??? fluticasone hfa (FLOVENT HFA) 220 MCG/ACT inhaler ??? cetirizine (ZYRTEC ALLERGY) 10 MG tablet ??? mometasone (ELOCON) 0.1 % ointment ??? esomeprazole (NEXIUM) 10 MG packet ??? albuterol HFA (PROVENTIL;VENTOLIN;PROAIR) 108 (90 BASE) MCG/ACT inhaler ??? lisdexamfetamine (VYVANSE) 40 MG capsule ??? amphetamine-dextroamphetamine (ADDERALL) 5 MG tablet Estimated Needs: KCAL: 55 kcal per kg (2,200 kcal/day) Protein (g): 1 g prot per kg (40 grams/day) Nutrition Care Process Nutrition Diagnostic Statement: Food and nutrition-related knowledge deficit related to: implementation of elimination diet with adequate nutrition as evidenced by: no prior nutrition education Nutrition Intervention: Coordination of Care: follow up with A&I, and GI Nutrition Education: Provided and discussed handouts related to: - Label Reading for safe and unsafe foods - Tips for Managing Multiple Food Allergies (advisory statements, cross- contamination, planning ahead) - MyPlate handout for age appropriate nutrition needs and serving sizes. - Encouraged soy milk over rice milk due to higher protein content, as intake may be sub-optimal. Vitamin or Mineral Supplementation: Continue with wheat and milk free vitamin; consider calcium supplementation if alternate enriched milk intake is less than 4 servings/day. Suggested [employer] Made brand. No additional formula supplementation is recommended at this time. Nutrition Goal: Growth velocity follows curve Nutrition Goal: Diet at home is consistent with prescribed diet Follow up prn; RD contact information provided. 45 minutes was spent with this family. Zaira Menon, MS, RD, LD ATION CONSULTANT documented in this encounter Miscellaneous Notes * Miscellaneous Scans - Document, Scanned - 03/25/2012 1:38 PM CST ATION CONSULTANT documented in this encounter Plan of Treatment Not on file documented as of this encounter Visit Diagnoses Diagnosis EE (eosinophilic esophagitis) Eosinophilic esophagitis documented in this encounter Care Teams Competitive Intelligence Manager Relationship Specialty Start Date End Date Lanny Hewitt MD PCP - General Pediatrics 11/09/11 12/30/13 documented as of this encounter
--- OUTSIDE RECORDS SUMMARY | 2024-03-21 22:04 | XMS_ITS | Encounter Summary ---
Author Organization [facility] Address [address] [place] [address] Care Team Providers Care Swimming Professor Name Role Phone Lanny Hewitt MD Primary Care Provider Reason for Referral * Evaluate & Treat - Closed Specialty Diagnoses / Procedures Referred By Contac t Referred To Contact Diagnoses Food allergy Kenzie Cobb MD [address] [place] [address] [id number] [phone] Referral ID Status Reason Start Date Expiration Date V isits Requested Visits Authorized [id number] Closed Specialty Services Required 01/16/2012 07/14/2012 1 1 Scheduling Instructions Discuss 6 food elimination diet. NCIAL WELLNESS COACH Reason for Visit * Reason Onset Date Comments Question 01/11/2012 Encounter Details Date Type Department Care Team (Late st Contact Info) Description 01/11/[address] [facility] Pediatric[facility] - GI [address] [place] [phone] Kenzie Cobb MD [address] [place] [phone] Question Social History Tobacco Use Types Packs/Day [...] Telephone Encounter - Blossom Lujan RN - 01/16/2012 12:52 PM FINANCIAL WELLNESS COACH Discussed Dr. Cobb's message with mother. NCIAL WELLNESS COACH * Telephone Encounter - Kenzie Cobb MD - 01/16/2012 11:56 AM CST I didn't order that 01/08 CBC but looks great! eos 8%, absolute eosinophil count 608! NCIAL WELLNESS COACH * Telephone Encounter - Ariana Kelly - 01/16/2012 9:38 AM CST Mom returned nurses' call. Gave her doctor's message and number to call soda room operator but mom did have a few questions to discuss and wanted to get CBC results. She can be reached at [phone] NCIAL WELLNESS COACH * Telephone Encounter - Damaris Lopez RN - 01/16/2012 9:26 AM CST Left message for parent(s) to call us back. Parents need to call [phone] to schedule dieticianappt. Consult entered into [email or web address]. NCIAL WELLNESS COACH * Telephone Encounter - Kenzie Cobb MD - 01/11/2012 1:37 PM CDT Called dad - stay on 6 food elimination diet, but he will need some supplemental amino acid formulato maintain calories Need help with following 1) getting amino acid formula for Lavelle (elecare jr?) 2) Appt with steerer to discuss 6 food elimination diet in detail Further food/aero allergen testing is in process by allergy clinic * Telephone Encounter - Oma Canada RN - 01/11/2012 11:15 AM CDT Informed father that his question will be routed to Allergy nurse. Instructed to keep Lavelle on diet til Allergy department contacts him. Verbalized understanding * Telephone Encounter - Kiley Silva - 01/11/2012 11:09 AM CDT Dad calling back to see if Lavelle can come off of 6-part diet now that he has seen pulmonary. * Telephone Encounter - Oma Canada RN - 01/11/2012 11:03 AM CDT LM on unidentified voicemail to call office. Pt is now under Dr. Goff with Allergy. Provided allergy phone number also * Telephone Encounter - Kiley Silva - 01/11/2012 10:54 AM CDT Dad calling with a couple of questions documented in this encounter Plan of Treatment Scheduled Referrals Name Type Priority Associated Diagnoses Orde r Schedule Mino referral to Nutrition Outpatient Referral Routine Food allergy Ordered: 01/16/2012 documented as of this encounter Visit Diagnoses Diagnosis Food allergy Dermatitis due to food taken internally documented in this encounter Care Teams Swimming Professor Relationship Specialty Start Date End Date Lanny Hewitt MD PCP - General Pediatrics 11/09/11 12/30/13 documented as of this encounter
--- OUTSIDE RECORDS SUMMARY | 2024-03-21 22:04 | XMS_ITS | Encounter Summary ---
Author Organization [facility] Address [address] [place] [address] Care Team Providers Care Glass Cleaning Machine Tender Name Role Phone Lanny Hewitt MD Primary Care Provider [phone] Reason for Referral * - Closed Specialty Diagnoses / Procedures Referred By Leonard gonzalez Referred To Contact Gastroenterology Diagnoses Vomiting and diarrhea Procedures ENDOSCOPY, COLON, DIAGNOSTIC Kenzie Cobb MD [address] [place] [id number] Referral ID Status Reason Start Date Expiration Date Visits Re quested Visits Authorized [id number] Closed 04/01/2012 09/28/2012 1 1 TRICITY TRADER * - Closed Specialty Diagnoses / Procedures Referred By Leonard gonzalez Referred To Contact Gastroenterology Diagnoses Vomiting and diarrhea Procedures EGD Kenzie Cobb MD [address] [place] [id number] Referral ID Status Reason Start Date Expiration Date Visits Re quested Visits Authorized [id number] Closed 04/01/2012 09/28/2012 1 1 TRICITY TRADER Reason for Visit * Auth/Cert - Closed Specialty Diagnoses / Procedures Referred By Leonard gonzalez Referred To Contact Diagnoses EE (eosinophilic esophagitis) Procedures ENDOSCOPY GI UPPER WITH BIOPSY COLONOSCOPY BIOPSY Referral ID Status Reason Start Date Expiration Date Visits Re quested Visits Authorized [id number] Closed 1 1 Encounter Details Date Type Department Care Team (Latest Contact Info) Description 05/05/2012 6:48 AM ELECTRICITY TRADER - 05/05/2012 10:25 AM ELECTRICITY TRADER [facility] [address] [place] [address] Kenzie Cobb MD [address] [place] [address] Surgery General Discharge Disposition: Home or Self [...] Sign Reading Time Taken Comments Blood Pressure 102/68 05/05/2012 10:15 AM ELECTRICITY TRADER Pulse 88 05/05/2012 10:15 AM ELECTRICITY TRADER Temperature 36.4 ??C (97.6 ??F) 05/05/2012 9:28 AM CS T Respiratory Rate 16 05/05/2012 10:15 AM ELECTRICITY TRADER Oxygen Saturation 100% 05/05/2012 10:15 AM ELECTRICITY TRADER Inhaled Oxygen Concentration - - Weight 38.4 kg (84 lb 12 oz) 05/05/2012 7:00 AM ELECTRICITY TRADER Height 148.2 cm (4' 10.35 ) 05/05/2012 7:[address] Body Mass Index 17.5 05/05/2012 7:00 AM ELECTRICITY TRADER Body Mass Index Percentile 35.72% 05/05/2012 7:0 0 AM ELECTRICITY TRADER Growth Chart: CDC (Boys, 2-2 0 Years) documented in this encounter Discharge Summaries * Kenzie Cobb MD - 05/05/2012 9:23 AM CST Images from the original note were not included. SAME DAY SURGERY DISCHARGE SUMMARY Patient ID: Lavelle Michael [id number] 11 y.o. 2000 Discharge Date: Discharge Diagnoses: 1. Eosinophilia 2. EE (eosinophilic esophagitis) and Eosinophilic Enterocolitis 3. Vomiting and diarrhea Discharge Condition: Stable Discharge Medication: Please see [...] his/her condition, please call the GI office [phone]. Afterhours, call the exchange at [phone]. DISCHARGE DIET INSTRUCTIONS Start light diet today (i.e soup, Jell-O, toast). If no nausea or vomiting, may resume normal diet.In case of nausea or vomiting, reduce diet to fluids low in acid (water, sports drinks, white sodas). As you are able to tolerate the fluids, gradually increase your diet. IF NAUSEA AND/OR VOMITING PERSISTS, CONTACT YOUR PHYSICIAN. SPECIAL INSTRUCTIONS Please allow 10-14 days for biopsy results to be finalized. GI clinc will call you with biopsy results Make appt in 3-4 months. Kenzie Cobb MD 05/05/2012 9:23 AM TRICITY TRADER documented in this encounter Discharge Instructions * Discharge Instructions* Kathleen Queen RN - 05/05/2012 9:54 AM ELECTRICITY TRADER Discharge Instructions for: Lavelle M Alec Discharge Procedure Orders DISCHARGE ACTIVITY RESTRICTIONS Your [...] his/her condition, please call the GI office [phone]. Afterhours, call the exchange at [phone]. DISCHARGE DIET INSTRUCTIONS Start light diet today (i.e soup, Jell-O, toast). If no nausea or vomiting, may resume normal diet.In case of nausea or vomiting, reduce diet to fluids low in acid (water, sports drinks, white sodas). As you are able to tolerate the fluids, gradually increase your diet. IF NAUSEA AND/OR VOMITING PERSISTS, CONTACT YOUR PHYSICIAN. SPECIAL INSTRUCTIONS Please allow 10-14 days for biopsy results to be finalized. GI clinc will call you with biopsy results Make appt in 3-4 months. The following belonging have been returned to you Clothing Clothing: Yes With Patient: Other (Comment) (SOCKS ON) Secured: Shirt;Pants;Footwear;Undergarments Jewelry Jewelry: None Electronics Electronic Items: Yes Secured: Cell Phone Dentures Dentures/Retainers: None Vision Visual Aids: Yes Hearing Aids Hearing Aids: None Equipment/Assistive Devices Equipment with Patient: None Home Medications Home Medications: None Miscellaneous Belongings Miscellaneous Items: None Monetary Monetary Items: None If your child has any worsening of their condition, please phone [phone] and ask for the doctor resource economist for GI or return to the Emergency Department. 05/05/2012 TRICITY TRADER * Discharge Instructions* Document, Scanned - 05/07/2012 7:42 AM ELECTRICITY TRADER TRICITY TRADER documented in this encounter Medications at Time [...] as of this encounter H&P Notes * Document, Scanned - 11/27/2012 5:58 PM CDT * Kenzie Cobb MD - 05/05/2012 8:35 AM CST Surgical History and Physical Today's Date: 05/05/2012 Lavelle Michael 11 y.o. 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 On diet restriction from dairy, wheat, nuts. Still withsymptoms, improved with budesonide (stoped 3 days ago after 3 week course) Prescriptions prior to admission Medication Sig Dispense Refill ??? fluticasone hfa (FLOVENT HFA) 220 MCG/ACT inhaler Take 2 Puffs by mouth 2 times daily. Take 2 puffs orally while holding breath 1 minute apart, then drink some water. Indications: Eosinophilic Esophagitis 1 Inhaler 6 ??? cetirizine (ZYRTEC ALLERGY) 10 MG tablet Take 1 Tab by mouth at bedtime. 30 Tab 5 ??? esomeprazole (NEXIUM) 10 MG packet Take 1 Packet by mouth 2 times daily before meals. 60 Packet5 ??? lisdexamfetamine (VYVANSE) 40 MG capsule Take 40 mg by mouth once daily. ??? amphetamine-dextroamphetamine (ADDERALL) 5 MG tablet Take 5 mg by mouth every morning. ??? mometasone (ELOCON) 0.1 % ointment Apply to affected area once daily as needed (for red, itcheyskin). 15 g 6 ??? albuterol HFA (PROVENTIL;VENTOLIN;PROAIR) 108 (90 BASE) MCG/ACT inhaler Inhale 2 Puffs by mouthevery 6 hours as needed. Allergies Allergen Reactions ??? Milk Protein ??? Other CLEAR TAPE CAUSED IRRITATION. PLEASE USE CLOTH TAPE ??? Peanut-Derived ??? Wheat Review of Systems Pertinent items are noted in HPI Exam Vitals: 05/05/12 0700 05/05/12 0756 BP: 100/60 Pulse: 70 Temp: 99 ??F Resp: 16 Weight: 38.442 kg (84 lb 12 oz) SpO2: 100% General appearance: alert, cooperative, no distress Lungs: breath sounds normal and symmetric; no rales or wheezes Heart: regular rhythm, normal S1 and S2, without murmurs, gallops or rubs Abdomen: soft without mass, non-tender, with normal bowel sounds Extremities: no clubbing, cyanosis or edema Other pertinent exam: none Data Component Name 01/09/12 1725 11/22/11 0523 11/21/11 0440 WBC 7.6 7.7 6.2 HGB 15.4 13.2 13.8 HCT 43.1 37.5 39.1 PLTCOUNT 261 316 306 Component Name 01/09/12 1725 11/15/11 1652 11/09/11 1901 SODIUM 138 139 141 POTASSIUM 3.7 3.8 4.2 CHLORIDE 106 109* 107 CO2 21 20 16* BUN 6.3 5.1* 8.7 CREATININE 0.60* 0.50* 0.50* GLUCOSE 84 103 137* CALCIUM 10.07 8.76* 8.96 Assessment and Plan Risks, benefits and alternatives discussed with the patient, questions answered. Plan to perform above noted procedure. Kenzie Cobb MD TRICITY TRADER documented in this encounter Procedure Notes * Document, Scanned - 05/13/2012 6:59 AM CSTAssociated Order(s): LAB RESULTS ORDER TRICITY TRADER * Document, Scanned - 05/07/2012 7:42 AM CSTAssociated Order(s): PATHOLOGY/CYTOLOGY REPORT ORDER TRICITY TRADER * Kenzie Cobb MD - 05/05/2012 9:33 AM CSTAssociated Order(s): ENDOSCOPY, COLON, DIAGNOSTIC TRICITY TRADER * Kenzie Cobb MD - 05/05/2012 9:00 AM CSTAssociated Order(s): EGD TRICITY TRADER documented in this encounter Consult Notes * Document, Scanned - 12/09/2012 7:22 PM CDT documented in this encounter Miscellaneous Notes * Miscellaneous Scans - Document, Scanned - 05/07/2012 7:42 AM CST TRICITY TRADER * Miscellaneous Scans - Document, Scanned - 05/07/2012 7:42 AM CST TRICITY TRADER documented in this encounter Plan of Treatment Not on file documented as of this encounter Procedures Procedure Name Priority Date/Time Associated Diagnosis Comments LAB RESULTS ORDER 05/13/2012 6:59 AM ELECTRICITY TRADER PATHOLOGY/CYTOLOGY REPORT ORDER 05/07/2012 7:42 AM ELECTRICITY TRADER COLONOSCOPY BIOPSY (ANY METHOD) 05/05/2012 4:30 PM ELECTRICITY TRADER EE (eosinophilic esophagitis) ESOPHAGOGASTRODUODENOSCOPY (EGD) BIOPSY 05/05/2012 4:30 PM ELECTRICITY TRADER EE (eosinophilic esophagitis) ENDOSCOPY, COLON, DIAGNOSTIC Routine 9:33 AM ELECTRICITY TRADER Vomiting and diarrhea EGD Routine 05/05/2012 9:01 AM ELECTRICITY TRADER Vomiting and diarrhea PATHOLOGY TISSUE EXAM (STL) STAT 04/12 8:52 AM ELECTRICITY TRADER EE (eosinophilic esophagitis) and Eosinophilic Enterocolitis Eosinophilia CBC W AUTO DIFFERENTIAL STAT 05/05/19 13 8:41 AM ELECTRICITY TRADER EE (eosinophilic esophagitis) and Eosinophilic Enterocolitis Eosinophilia documented in this encounter Results * LAB RESULTS ORDER (05/13/2012 6:59 AM ELECTRICITY TRADER) Narrative 05/13/2012 6:59 AM ELECTRICITY TRADER Procedure Note Document, Scanned - 05/13/2012 6:59 AM CST Scanned Document LAB - THERAPEUTIC DR OBDULIA MONITORING ORDERABLES * PATHOLOGY/CYTOLOGY REPORT ORDER (05/07/2012 7:42 AM ELECTRICITY TRADER) Narrative 05/07/2012 7:42 AM ELECTRICITY TRADER Procedure Note Document, Scanned - 05/07/2012 7:42 AM CST Scanned Document LAB - PATHOLOGY/CYTO LOGY ORDERABLES * ENDOSCOPY, COLON, DIAGNOSTIC (05/05/2012 9:33 AM ELECTRICITY TRADER) Narrative [facility] - 05/05/2012 9:33 AM ELECTRICITY TRADER Procedure Note Kenzie Cobb MD - 05/05/2012 9:33 AM CST Kenzie Cobb MD GI PROCEDURE ORDERAB LES Performing Organization Address [facility]/ZIP Co de Phone Number [facility] [address] [place] [address] * EGD (05/05/2012 9:01 AM ELECTRICITY TRADER) Narrative [facility] - 05/05/2012 9:01 AM ELECTRICITY TRADER Procedure Note Kenzie Cobb MD - 05/05/2012 9:00 AM CST Kenzie Cobb MD GI PROCEDURE ORDERAB LES Performing Organization Address [facility]/ZIP Co de Phone Number [facility] [address] [place] [address] * GROSS + MICRO EXAM (STL) (05/05/2012 8:52 AM ELECTRICITY TRADER) Case Report Surgical Pathology Report ? Case: [id number] ? Authorizing Provider: ??Kenzie Cobb MD ? Ordering Provider: ?? Kenzie Cobb MD ? Ordering Location: ? [facility] ?Collected: ? 05/05/2012 ??8:52 AM ? Pathologist: ? González Sherwood MD ?Received: ?05/05/2012 10:53 AM ?Signed Out: ?11/26/2012 ??4:42 PM (Addend, ? F) ? 05/14/2012 12:16 PM (Final) ? Specimens: ?? A) - Esophagus, Mid ? B) - Stomach ? C) - Duodenum ? D) - Esophagus, Distal ? E) - Esophagus, Proximal ? F) - Ileum ? G) - Colon, Right ? H) - Colon Transverse Biopsy ? I) - Colon, Left ? J) - Rectosigmoid ? 11/26/2012 4:42 PM [facility] Addendum 1 Ten (10) H&E glass slides were sent to [facility] for a second opinion. Please see a complete scanned report from [facility] signed by Guerda Gordon M.D. 11/26/2012 4:42 PM [facility] Addendum electronically signed by González Sherwood MD on 11/27/2012 at 2:36 PM Final Diagnosis ESOPHAGUS, MID, BIOPSY(A): - EOSINOPHILIC ESOPHAGITIS, >50 EOSINOPHILS/HPF STOMACH , BIOPSY(B): - EOSINOPHILIC GASTRITIS, >30 EOSINOPHILS/ HPF - EOSINOPHILIC ENTERITIS, >20 EOSINOPHILS/HPF SMALL INTESTINE, DUODENUM, BIOPSY(C): - EOSINOPHILIC DUODENITIS, >30 EOSINOPHILS/HPF ESOPHAGUS, DISTAL, BIOPSY(D): - EOSINOPHILIC ESOPHAGITIS, >40 EOSINOPHILS/HPF ESOPHAGUS, PROXIMAL, BIOPSY(E): - NO PATHOLOGIC DIAGNOSIS SMALL INTESTINE, ILEUM, BIOPSY(F): - EOSINOPHILIC ENTERITIS, >20 EOSINOPHILS/HPF COLON, RIGHT, BIOPSY(G): - EOSINOPHILIC COLITIS, >20 EOSINOPHILS/HPF COLON, TRANSVERSE, BIOPSY(H): - EOSINOPHILIC COLITIS, >50 EOSINOPHILS/HPF COLON, LEFT, BIOPSY(I): - EOSINOPHILIC COLITIS, >25 EOSINOPHILS/HPF COLON, RECTOSIGMOID, BIOPSY(J): - EOSINOPHILIC COLITIS, > 30 EOSINOPHILS/HPF 11/26/2012 4:42 PM [facility] Clinical History The patient is a 11-year-old boy with a history of eosinophilic enteropathy who underwent surveillance endoscopy. The patient is on therapy with dietary elimination of dairy, nuts, and wheat. The patient underwent upper endoscopy and colonoscopy. The findings were mild linear furrows in the esophagus and mild patchy erythema in the duodenal bulb. 11/26/2012 4:42 PM [facility] Gross Description The specimens are received fixed in formalin in ten containers for gross and microscopic examination. All containers are labeled with the patient's name, Lavelle Michael. Specimen A, mid esophagus, consists of three soft, hernandez-pink tissue fragments, 1 mm to 2 mm in greatest dimension. The specimen is submitted in toto as A1. Specimen B, stomach, consists of five soft, yellow-santizo tissue fragments, 2 mm to 4 mm in greatest dimension. The specimen is submitted in toto as B1. Specimen C, duodenum, consists of six soft, yellow-santizo tissue fragments, 2 mm to 4 mm in greatest dimension. The specimen is submitted in toto as C1. Specimen D, distal esophagus, consists of a 3 mm soft, hernandez-white tissue fragment submitted in toto as D1. Specimen E, proximal esophagus, consists of two 3 mm soft, hernandez-pink tissue fragments submitted in toto as E1. Specimen F, TI, consists of three 4 mm soft, yellow-santizo tissue fragments submitted in toto as F1. Specimen G, right colon, consists of two 4 mm soft, yellow-santizo tissue fragments submitted in toto as G1. Specimen H, transverse, consists of two soft, yellow-santizo tissue fragments, 3 mm and 5 mm in greatest dimension. The specimen is submitted in toto as H1. Specimen I, left colon, consists of two 4 mm soft, pale santizo tissue fragments submitted in toto as I1. Specimen J, rectosigmoid, consists of three 3 mm soft, yellow-santizo tissue fragments submitted in toto as J1. (CT/dav) 11/26/2012 4:42 PM CDT [facility] Microscopic Description A)3 H&E, B)3 H&E, C)3H&E, D)3 H&E, E)3 H&E, F)3 H&E, G)3 H&E, H)3 H&E, I)3 H&E, J)3 H&E Sections of the mid esophagus show multiple fragments of squamous mucosa with basal cell hyperplasia and elongation of papillae. Marked infiltration of the epithelium by eosinophils is noted, with greater than 50 eosinophils per high power field. Occasional microabscesses are seen. Sections of the stomach biopsy show multiple fragments of both fundic and antral type gastric mucosa as well as fragments of small intestinal mucosa. The fragments of gastric mucosa are remarkable for a moderate elevation of eosinophils within the lamina propria, with up to 20 eosinophils per high power field, as well as rare infiltration of eosinophils into gastric glands. The fragments of small intestinal mucosa ??show focal, mild villous blunting and the underlying lamina propria contains a markedly increased number of eosinophils(greater than 50 eosinophils per high power field). Eosinophils can also be seen infiltrating into the small intestinal surface epithelium. A small area of muscularis mucosa is additionally identified in the small intestinal fragments, and is free of eosinophilic infiltrate. Sections of the duodenal biopsy show multiple fragments of duodenal mucosa with focal, mild villous blunting. ??The lamina propria contains a markedly increased number of eosinophils, with counts exceeding 30 eosinophils per high power field in some areas. Eosinophilic infiltrate can also be seen with the superficial epithelium, as well as extending through the muscularis mucosa and into the Noe's glands. Sections of the distal esophagus biopsy shows minute fragments spongiotic squamous mucosa with basal cell hyperplasia and an increase in intraepithelial eosinophils(regional counts up to 40 eosinophils per high power field) with rare microabscess formation. ??A mild lymphocytic infiltrate can also be seen. Sections of the proximal esophagus biopsy show minute fragments of spongiotic squamous mucosa with basal cell hyperplasia. Intraepithelial eosinophils are seen, however at a frequency of less than 1 eosinophil per high power field on average. Sections of the ileal biopsy show fragments of small intestinal mucosa with intact villous architecture. The lamina propria contains a markedly increased number of eosinophils, with counts exceeding 30 eosinophils per high power field in some areas. Eosinophilic infiltrate is also seen beyond the lamina propria, penetrating the surface epithelium as well as within the muscularis mucosa. Sections of the right colon biopsy show fragments of colonic mucosa with preserved architecture and marked elevation of eosinophils scattered within the lamina propria, exceeding 50 eosinophils per high power field in some areas. ??Eosinophils are also rarely seen infiltrating into the surface epithelium and crypts. Sections of the transverse biopsy show fragments of colonic mucosa with preserved architecture and a prominent lymphoid aggregate. ??There is a marked elevation of eosinophils scattered within the lamina propria, with more than 50 eosinophils per high power field on average. Eosinophils are also rarely seen infiltrating into the surface epithelium and crypts. Sections of the left colon biopsy show fragments of colonic mucosa with preserved architecture and marked elevation of eosinophils scattered within the lamina propria, exceeding 25 eosinophils per high power field in some areas. Eosinophils are also occasionally seen infiltrating into the surface epithelium and crypts. Sections of the rectosigmoid biopsy show fragments of colonic mucosa with preserved architecture and marked elevation of eosinophils scattered within the lamina propria, exceeding 30 eosinophils per high power field in some areas. Eosinophils are also rarely seen infiltrating into the surface epithelium and crypts. 11/26/2012 4:42 PM CDT [facility] Disclaimer The performance characteristics of all immunohistochemical and indirect ??immunofluorescence stains (if any) cited in this report were determined by the Histopathology Laboratory of [facility] (immunohistochemistry ) or the [facility] Laboratory of [facility] (indirect immunofluorescence) in compliance with CLIA `88 regulations. ??Some of these tests rely on the use of analyte-specific reagents and are subject to specific labeling requirements by the FDA. ??Such tests were developed by the ??[facility] of [facility] or the [facility]ology Laboratory of [facility] and have not been cleared or approved by the FDA. ??The FDA has determined that such clearance or approval is not necessary. ??These tests are used for clinical purposes and should not be regarded as investigational or for research. ? This case has been personally reviewed and interpreted by the attending (teaching) pathologist. 11/26/2012 4:42 PM T [facility] Synoptic Report 11/26/2012 4:42 PM T [facility] Pathology/Cytology REGION OF ESOPHAGUS / Unknown 05/05/2012 8:52 AM ELECTRICITY TRADER 05/05/2012 10:53 AM ELECTRICITY TRADER Miscellaneous samples (specimen) ENTIRE STOMACH / Unknown 05/05/2012 8:52 AM ELECTRICITY TRADER 05/05/2012 10:53 AM ELECTRICITY TRADER Miscellaneous samples (specimen) PART OF DUODENUM / Unknown 05/05/2012 8:52 AM ELECTRICITY TRADER 05/05/2012 10:53 AM ELECTRICITY TRADER Miscellaneous samples (specimen) REGION OF ESOPHAGUS / Unknown 05/05/2012 8:52 AM ELECTRICITY TRADER 05/05/2012 10:53 AM ELECTRICITY TRADER Miscellaneous samples (specimen) REGION OF ESOPHAGUS / Unknown 05/05/2012 8:52 AM ELECTRICITY TRADER 05/05/2012 10:53 AM ELECTRICITY TRADER Miscellaneous samples (specimen) ENTIRE ILEUM / Unknown 05/05/2012 8:52 AM ELECTRICITY TRADER 05/05/2012 10:53 AM ELECTRICITY TRADER Miscellaneous samples (specimen) COLON PART / Unknown 05/05/2012 8:52 AM ELECTRICITY TRADER 05/05/2012 10:53 AM ELECTRICITY TRADER Miscellaneous samples (specimen) SPECIMEN FROM COLON OBTAINED BY TRANSVERSE COLECTOMY / Unknown 05/05/2012 8:52 AM ELECTRICITY TRADER 05/05/2012 10:53 AM ELECTRICITY TRADER Miscellaneous samples (specimen) COLON PART / Unknown 05/05/2012 8:52 AM ELECTRICITY TRADER 05/05/2012 10:53 AM [facility] Miscellaneous samples (specimen) ENTIRE RECTOSIGMOID / Unknown 05/05/2012 8:52 AM ELECTRICITY TRADER 05/05/2012 10:53 AM [facility] Kenzie Cobb MD LAB - PATHOLOGY/CYTO LOGY ORDERABLES Performing Organization Address City/State/[facility] Co de Phone Number [facility] [address] [place] [address] * (ABNORMAL) CBC W AUTO DIFFERENTIAL (05/05/2012 8:41 AM [facility]) WBC 5.2 4.5 - 14.5 x10^9/L 05/05/2012 8:53 AM [facility] RBC 4.83 4.00 - 5.20 x10^12/L 05/05/2012 8:53 AM [facility] Hemoglobin 14.6 11.5 - 15.5 g/dL 05/05/2012 8:53 AM [facility] Hematocrit 41.3 35.0 - 45.0 % 05/05/2012 8:53 AM [facility] MCV 85.5 77.0 - 95.0 fl 05/05/2012 8:53 AM [facility] MCH 30.2 25.0 - 33.0 pg 05/05/2012 8:53 AM [facility] MCHC 35.4 31.0 - 37.0 gm/dL 05/05/2012 8:53 AM [facility] RDW-CV 12.5 11.5 - 14.0 % 05/05/2012 8:53 AM [facility] MPV 10.5(H) 6.0 - 9.5 fl 05/05/2012 8:53 AM [facility] Neutrophils % 26 24 - 66 % 05/05/2012 8:53 AM [facility] Lymphocytes % 53 22 - 61 % 05/05/2012 8:53 AM [facility] Monocytes % 6 3 - 15 % 05/05/2012 8:53 AM [facility] Eosinophils % 14(H) 0 - 10 % 05/05/2012 8:53 AM [facility] Basophils % 0 0 - 2 % 05/05/2012 8:53 AM [facility] Immature Granulocytes 0.2 0 - 1 % 05/05/2012 8:53 AM [facility] Neutrophil Absolute 1.37 x10^9/L 05/05/2012 8:53 AM [facility] Lymphocytes Absolute 2.79 x10^9/L 05/05/2012 8:53 AM [facility] Monocytes Absolute 0.29 x10^9/L 05/05/2012 8:53 AM [facility] Eosinophils Absolute 0.74 x10^9/L 05/05/2012 8:53 AM [facility] Basophils Absolute 0.02 x10^9/L 05/05/2012 8:53 AM [facility] Immature Granulocytes Absolute 0.01 0.00 - 0.06 x10^9/L 05/05/2012 8:53 AM [facility] Platelet Count 250 100 - 400 x10^9/L 05/05/2012 8:53 AM [facility] Blood specimen (specimen) BLOOD SPECIMEN / Unknown 05/05/2012 8:41 AM ELECTRICITY TRADER 05/05/2012 8:45 AM ELECTRICITY TRADER Kenzie Cobb MD LAB - HEMATOLOGY ORD ERABLES Performing Organization Address City/State/[facility] Co de Phone Number [facility] [place] [address] documented in this encounter Visit Diagnoses Diagnosis Eosinophilia- Primary EE (eosinophilic esophagitis) and Eosinophilic Enterocolitis Eosinophilic esophagitis Vomiting and diarrhea Vomiting alone documented in this encounter Administered Medications Inactive Administered Medications - up to 3 most recent administrations Medication Order MAR Action Action Date Dose Rate Site isolyte-S pH 7.4 infusion 50 mL/hr, Intravenous, POST-OP CONTINUOUS, Starting on Sat05/05/12 at 1000, Until Sat05/05/12 at 1144, PACU Current Rate 05/05/2012 9:28 AM ELECTRICITY TRADER 50 mL/hr 50 mL/hr lidocaine (LMX 4) 4% cream ADS Med 1 dose, Starting on Sat05/05/12 at 0741, Until Sat05/05/12 at 0743, HAYLIE MONTOYA: cabinet override . WASTE DISPOSAL INSTRUCTIONS: Black Bin Disposal required. $ Given 05/05/2012 7:43 AM ELECTRICITY TRADER 1 tube documented in this encounter Active and Recently Administered Medications Times are shown in ELECTRICITY TRADER. Continuous Medication Order 05/03/2012 05/04/2012 05/05/2012 isolyte-S pH 7.4 infusion (CANCELED) 50 mL/hr, Intravenous, POST-OP CONTINUOUS, Starting on Sat05/05/12 at 1000, Until Sat05/05/12 at 1144, PACU 0928 (Current Rate - Provider: Kathleen Queen, RN)1015 (Stopped - Provider: Kathleen Queen, RN) No Frequency Medication Order 05/03/2012 05/04/2012 05/05/2012 lidocaine (LMX 4) 4% cream ADS Med (COMPLETED) 1 dose, Starting on Sat05/05/12 at 0741, Until Sat05/05/12 at 0743, HAYLIE MONTOYA: cabinet override . WASTE DISPOSAL INSTRUCTIONS: Black Bin Disposal required. 0743 ($ Given - Prov ider: Haylie Abdul RN) documented in this encounter Care Teams Glass Cleaning Machine Tender Relationship Specialty Start Date End Date Lanny Hewitt MD PCP - General Pediatrics 11/09/11 12/30/13 documented as of this encounter
--- OUTSIDE RECORDS SUMMARY | 2024-03-21 22:04 | XMS_ITS | Encounter Summary ---
Author Organization [facility] Address [address] [place] [address] Care Team Providers Care Telecommunications Line Installer Name Role Phone Lanny Hewitt MD Primary Care Provider [phone] Reason for Visit * Reason Onset Date Comments Update 03/27/2012 Encounter Details Date Type Department Care Team (Late st Contact Info) Description 03/27/2012 Telephone [facility] Pediatrics - [address] [place] [address] Kenzie Cobb MD [facility] [place] [address] Update Social History Tobacco Use Types Packs/Day [...] Telephone Encounter - Merary Fountain RN - 03/28/2012 8:39 AM PEST CONTROL WORKER Left message on mother's voicemail informing her of lab orders faxed to [facility] CONTROL WORKER * Telephone Encounter - Blossom Lujan RN - 03/28/2012 6:56 AM PEST CONTROL WORKER Orders entered & faxed to [facility] @ [phone]. Will need to notify mom. CONTROL WORKER * Telephone Encounter - Kiley Silva - 03/27/2012 4:25 PM CST MOm called back, would like to have labs done at [facility] in [place], fax [phone] CONTROL WORKER * Telephone Encounter - Blossom Lujan RN - 03/27/2012 4:16 PM PEST CONTROL WORKER No answer @ number left by mom--LM asking mom to let us know where she would like stool studies done. CONTROL WORKER * Telephone Encounter - Kenzie Cobb MD - 03/27/2012 3:44 PM CST Spoke to mom.. PCP already ordering CBC .. Would you also get stool studies ordered. 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 CONTROL WORKER * Telephone Encounter - Kenzie Cobb MD - 03/27/2012 3:24 PM CST Let's get CBC and stools studies to include rotavirus, adenovirus, culture. Getting stool studies since its been so long since he has had diarrhea as a symptom would like to ensure not an infection before doing a medicine CONTROL WORKER * Telephone Encounter - Blossom Lujan RN - 03/27/2012 10:29 AM PEST CONTROL WORKER Pt started having vomiting early Tues am, had vomiting & diarrhea all Tues, seemed to feel somebetter Wed but diarrhea continued. Today has both vomiting & diarrhea. Stools x3 so far today, green liquid. Voided x1 this am. No one else ill @ home. Pt curled up in bed currently because of abd cramping. No fever. Will discuss with Dr. Cobb. CONTROL WORKER * Telephone Encounter - Ariana Kelly - 03/27/2012 10:13 AM CST Patient c/o really bad stomach cramps, vomiting and diarrhea. Mom wondering if she needs to bring him in here for testing or what we need to do? CONTROL WORKER documented in this encounter Plan of Treatment Not on file documented as of this encounter Visit Diagnoses Diagnosis Diarrhea- Primary documented in this encounter Care Teams Telecommunications Line Installer Relationship Specialty Start Date End Date Lanny Hewitt MD PCP - General Pediatrics 11/09/11 12/30/13 documented as of this encounter
--- OUTSIDE RECORDS SUMMARY | 2024-03-21 22:04 | XMS_ITS | Encounter Summary ---
Author Organization [facility] Address [address] [facility] [place] [address] Care Team Providers Care Project Builder Name Role Phone Lanny Hewitt MD Primary Care Provider [phone] Reason for Visit * Reason Comments Allergy Symptoms Encounter Details Date Type Department Care Team (Late st Contact Info) Description 01/09/2012 2:00 PM CDT - 01/09/2012 11:59 PM CDT Hospital Encounter [facility] Pediatric[facility] - Allergy [address] [place] [address] Kunal Goff MD [address] [place] [address] [place] [address] [facility] [address] [address] Discharge Disposition: Home or Self Care Social [...] Sign Reading Time Taken Comments Blood Pressure 80/56 01/09/2012 2:14 PM CDT Pulse - - Temperature - - Respiratory Rate - - Oxygen Saturation - - Inhaled Oxygen Concentration - - Weight 39.7 kg (87 lb 8 oz) 01/09/2012 2:14 PM C DT Height 145.4 cm (4' 9.25 ) 01/09/2012 2:14 PM CD T Body Mass Index 18.77 01/09/2012 2:14 PM CDT Body Mass Index Percentile 60.08% 01/09/2012 2:1 4 PM CDT Growth Chart: [facility] (Boys, 2-2 0 Years) documented in this encounter Discharge Instructions * Patient Instructions* Neelima Grant RN - 01/09/2012 4:39 PM CDT Please call [phone] in 2-3 weeks for lab results. Flovent 2 puffs to be swallowed by mouth, not to be inhale. Using for Eosinophilic esophagitis. The Discharge Instructions have been reviewed with [...] morning. 01/12/2014 cetirizine (ZYRTEC ALLERGY) 10 MG tabletIndications:EE (eosinophilic esophagitis) Take 1 Tab by mouth at bedtime. 30 Tab 5 01/09/2012 02/12/2012 fluticasone hfa (FLOVENT HFA) 220 MCG/ACT inhalerIndications:Eo sinophilic Esophagitis Take 2 Puffs by mouth 2 times daily. Swallow flovent. Donot Inhale. Indications: Eosinophilic Esophagitis 1 Inhaler 5 01/09/2012 02/12/2012 lisdexamfetamine (VYVANSE) 40 MG capsule Take 40 mg by mouth once daily. 01/12/2014 documented as of this encounter Progress Notes * Kunal Goff MD - 01/09/2012 4:04 PM CDT LV: 11/26/11 CC: Eosinophilic gastroenteropathy, asthma symptoms, peripheral eosinophilia, eczema. HPI: Lavelle Michael is a 11 y.o. male who presents today for follow-up of his peripheral eosinophilia, eosinophilic esophagitis and enterocolitis after his hospital stay.. Please see the problem listfor details of all the testing which was done below. Patient completed his prednisone dose almost 1week ago and once he is off of prednisone he started to have increased abdominal pain and also increased chest tightness elephent sitting on his chest . No diarrhea. He is on 6 food (milk,soy,egg,wheat,nuts,seafood) elimination diet as recommended by GI. He is not on swallowed flovent. Taking nexium 10 mg po bid. Patient was also found to have 2 spots in his lungs for which he will be seeing Pulmonology in 2 days. Atopic dermatitis: patient getting alternate day baths with baby soap, not using vaseline on regular basis. Asthma: patient was using albuterol with his chest tight ness he not getting any relief from it. Nowheezing recently but has exercise induced symptoms. Patient Active Problem List Diagnoses Date Noted ??? Flushing 11/13/2011 No flushing episodes over night. Plan - Benadryl prn - Monitor vital signs if flushing attack recurs - Avoid Compazine ??? Eosinophilia 11/10/2011 Patient admitted for abdominal pain and diarrhea for 3 weeks on 11/08-11/22. Peripheral eosinophlia noted: 11/19/11 = 4901 11/22/11 = 0 01/09/12 = 600 off prednisone for one week CRP elevated, IgG- 360, IgE normal, IgA nl. TTG border line high- 35 Workup for Hypereosinophilic Syndrome: ECHO was also normal blood cathecolamines nl, LUC nl,5 HTIAA normal. Fish for FIP1 L1 PDGFR alpha gene was normal. Fecal Calprotectin is normal. Upper GI with path report with eosinophilic esophagitis and dudenitis. Bone marrow aspiration done at time of scope for concern of neoplasia with high eosinophlis in bonemarrow aspirate, cytogenetics were normal, leukemia panel and bone marrow biopsy nl. See Dr perez'sprogress note from 11/21/11. Pt showed significant clinical improvement after starting prednisone 20 bid and slowly tapered to off in 5 week span. Eosinophils were completely gone in CBC on 11/21 but once he is off of the steroids for one week his last Eosinophil count was 608 on 01/08. IL-5 ordered on 01/08 along with IgE food allergy panels. ??? EE (eosinophilic esophagitis) 11/09/2011 EGD on 11/16/11 showed severe eosinophilic esophagitis,gastritis,duodunitis, and colitis. Treated with po prednisone and he is started on flovent 220 mcg 2 puffs swallow bid. IgE food allergy panel checked on 01/08. He is currently on 6 food elimination diet. ??? ADHD (attention deficit hyperactivity disorder) 11/09/2011 - Continue home Adderall and Vyvanse Current Outpatient Prescriptions Medication Sig Dispense Refill ??? albuterol HFA (PROVENTIL;VENTOLIN;PROAIR) 108 (90 BASE) MCG/ACT inhaler Inhale 2 Puffs by mouthevery 6 hours as needed. ??? lisdexamfetamine (VYVANSE) 40 MG capsule Take 40 mg by mouth once daily. ??? amphetamine-dextroamphetamine (ADDERALL) 5 MG tablet Take 5 mg by mouth every morning. Medication Allergies: Allergies Allergen Reactions ??? Eggs Other Egg yolks--cause migraines OK with egg whites and can have small amounts yolk if cooked in foods Review of Systems: Constitutional: no weight loss/gain, fever, ROCAH, fatigue ENT: no Rhinitis, nasal congestion, sneezing, ocular/nasal pruritus Resp: no wheeze, cough, SOB GI: has heartburn, N/V/D, constipation, dysphagia Skin: no hives, swelling, pruritus, bruising, eczema Psych: no anxiety, behavioral changes A review of past medical history, environmental history, and family history was obtained and no change since previous visit. PE: Vitals: 01/09/12 1414 BP: 80/56 Weight: 87 lb 8 oz (39.69 kg) Gen: NAD Eyes: PERRL, EOMI, conjunctiva clear B with B allergic shiners. ENT: TM-clear B, nares - patent with normal nasal mucosa, Sinus Tenderness no, OP-clear. CV: RRR s m Resp: CTAB, no wheezes ABD: soft, NTND, no HSM Extr: no c/c/e Skin: no lesions/rashes Lymphatic: Palpation of nodes in neck show no LAD Psych: Patient co operative, happy playful during exam. Pulmonary Function Studies: done Parameter Actual % pred FVC 2.49 liters 97.27 % FEV1 2.42 liters 111.52 % [id number] 3.59 L/SEC 143.03 % PEF 4.73 L/SEC 90.27 % FEV1/FVC 97.19 % Interpretation: Technique: acceptable Flow Volume Loop - Appears normal. Bronchodilator Response - Not Performed Findings are consistent with Normal PFT.. A/P: Eosinophilic Gastroenteropathy and EoE: Discussed in length about the diagnosis and prognosis of EoE and eosinophilic enterocolitis. We will evaluate for possible food allergies by checking comprehensive IgE panels for foods including salad, vegetables, apple,banana,potato,seafood,meats, peanuts and treenuts. Once the food allergies are determined we will advise the patient about food avoidance. For now he was advised to continue with his current 6 food elimination diet until the lab results are back. This information was conveyed to . We also ordered IL-5 level today. We can consider starting him on singulair and or prednisone in future as patient will be evaluated by pulmonology for pulmonary nodules and possibility churg lori disease and we would not want to minimize the diagnostic yield of the biopsy if he ends up getting one. We would like to see patient back in 1 month, We will start patient on flovent 220 mcg 2 puffs bid swallow (not inhaled). Will continue patient on his nexium every day. Atopic Dermatitis: discussed appropriate AD skin care recs including daily bathing w/ non-detergent, perfume-free, dye-free cleanser such as Dove Sensitive Skin bar soap followed by judicious application of emollient such as Vaseline. May continue to use topical corticosteroid as needed for red anditchy skin. I have spent >60 min counselling patient, reviewing labs and setting up a management plan for this patient. Shirley Garcia M.D. Fellow in Allergy and Immunology. 01/09/2012 7:12 PM Attending Physician Supervisory Note I personally interviewed and examined the patient and agree with the doctor above. 11 year old boy here for FU, who was admitted to [facility] on 11/09/11 for upper and lower GI symptoms and marked peripheral eosinophilia. Bone marrow biopsy showed only elevated eosinophils. FISH studies for Hypereosinophilic Syndrome and a cardiac echo were normal EGD and colonoscopy showed EoE and eosinophilic enterocolitis. Patient was treated with a 6 week prednisone course and taper during which his GI symptoms and peripheral eosinophilia resolved, but they have begun to recur one week off prednisone. He also has AR, EIA symptoms and eczema. PE: currently has pale nasal mucosa. His chest is CTA, abdomen benign but with a liver and spleen tip palpable, and his skin is normal. 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 IL-5 level, extended IgEs to foods and inhalant allergens pending. To see Pulmonary 01/11/12. A primary question is whether a lung biopsy should be obtained to evaluate for Churg Lori Vasculitis, while he is off prednisone and Singulair. We will start swallowed Flovent 220, 2x2 and decide on an appropriate food elimination diet when lab results are available. Kunal Goff MD documented in this encounter Procedure Notes * Document, Scanned - 01/28/2012 8:39 AM CSTAssociated Order(s): LAB RESULTS ORDER IVING LEAD * Document, Scanned - 01/28/2012 8:39 AM CSTAssociated Order(s): IMAGING/RADIOLOGY/XRAY RESULTS ORDER IVING LEAD documented in this encounter Miscellaneous Notes * Miscellaneous Scans - Document, Scanned - 04/29/2012 1:47 PM CST IVING LEAD documented in this encounter Plan of Treatment Not on file documented as of this encounter Procedures Procedure Name Priority Date/Time Associated Diagnosis Comments LAB RESULTS ORDER 01/28/2012 8:3 9 AM RECEIVING LEAD IMAGING/RADIOLOGY/XRA Y RESULTS ORDER 01/28/2012 8:39 AM RECEIVING LEAD IMMUNOSCORE IGE INTERP Routine 01/09/2012 5:25 PM CDT EE (eosinophilic esophagitis) Eosinophilic gastroenteritis and colitis ALLERGEN INHALANT COMPREHENSIVE PROFILE Routine 01/09/2012 5:25 PM CDT EE (eosinophilic esophagitis) Eosinophilic gastroenteritis and colitis ALLERGEN FOOD CEREAL PROFILE Routine 01/09/2012 5:25 PM CDT EE (eosinophilic esophagitis) Eosinophilic gastroenteritis and colitis ALLERGEN FOOD NUT MIX PROFILE Routine 01/09/2012 5:25 PM CDT EE (eosinophilic esophagitis) Eosinophilic gastroenteritis and colitis ALLERGEN CHICKEN MEAT IGE Routine 01/09/2012 5:25 PM CDT EE (eosinophilic esophagitis) Eosinophilic gastroenteritis and colitis ALLERGEN BANANA IGE Routine 01/09/2012 5 :25 PM CDT EE (eosinophilic esophagitis) Eosinophilic gastroenteritis and colitis ALLERGEN COCKROACH IGE Routine 01/09/2012 5:25 PM CDT EE (eosinophilic esophagitis) Eosinophilic gastroenteritis and colitis ALLERGEN WALNUT IGE Routine 01/09/2012 5 :25 PM CDT EE (eosinophilic esophagitis) Eosinophilic gastroenteritis and colitis ALLERGEN MOUSE URINE IGE Routine 01/09/2012 5:25 PM CDT EE (eosinophilic esophagitis) Eosinophilic gastroenteritis and colitis INTERLEUKIN-5 Routine 01/09/2012 5:25 PM CDT Eosinophilia ALLERGEN TURKEY IGE Routine 01/09/2012 5 :25 PM CDT EE (eosinophilic esophagitis) Eosinophilic gastroenteritis and colitis ALLERGEN APPLE IGE Routine 01/09/2012 5: 25 PM CDT EE (eosinophilic esophagitis) Eosinophilic gastroenteritis and colitis ALLERGEN FOOD COMMON ADULT PROFILE Routine 01/09/2012 5:25 PM CDT EE (eosinophilic esophagitis) Eosinophilic gastroenteritis and colitis ALLERGEN BEEF IGE Routine 01/09/2012 5:2 5 PM CDT EE (eosinophilic esophagitis) Eosinophilic gastroenteritis and colitis ALLERGEN FOOD SALAD PROFILE Routine 01/09/2012 5:25 PM CDT EE (eosinophilic esophagitis) Eosinophilic gastroenteritis and colitis ALLERGEN FOOD SEAFOOD PROFILE Routine 01/09/2012 5:25 PM CDT EE (eosinophilic esophagitis) Eosinophilic gastroenteritis and colitis ALLERGEN FOOD VEGETABLE PROFILE Routine 01/09/2012 5:25 PM CDT EE (eosinophilic esophagitis) Eosinophilic gastroenteritis and colitis CBC W AUTO DIFFERENTIAL Routine 01/09/2012 5:25 PM CDT EE (eosinophilic esophagitis) Eosinophilic gastroenteritis and colitis COMPREHENSIVE METABOLIC PANEL Routine 01/09/2012 5:25 PM CDT EE (eosinophilic esophagitis) documented in this encounter Results * LAB RESULTS ORDER (01/28/2012 8:39 AM RECEIVING LEAD) Narrative 01/28/2012 8:39 AM RECEIVING LEAD Procedure Note Document, Scanned - 01/28/2012 8:39 AM CST Scanned Document LAB - THERAPEUTIC DR OBDULIA MONITORING ORDERABLES * IMAGING/RADIOLOGY/XRAY RESULTS ORDER (01/28/2012 8:39 AM RECEIVING LEAD) Anatomical Region Laterality Modality Other Narrative 01/28/2012 8:39 AM RECEIVING LEAD Procedure Note Document, Scanned - 01/28/2012 8:39 AM CST Scanned Document IMAGING * IMMUNOSCORE IGE INTERP (01/09/2012 5:25 PM CDT) Immunocap Score See Note 2 2:17 AM CDT H5 Comment: REFERENCE INTERVAL: Allergen, Interpretation Less than [...] - SEROLOGY ORDER RADHA Performing Organization Address [facility] de Phone Number [phone] [place] [address] * (ABNORMAL) INTERLEUKIN-5 (01/09/2012 5:25 PM CDT) IL-5 8(H) 0 - 5 pg/mL 01/14/2012 5:24 PM [facility] Comment: INTERPRETIVE INFORMATION: Cytokines Results are to be used for research purposes or in attempts to understand the pathophysiology of immune, infectious, or inflammatory disorders. This test was developed and its performance characteristics determined by [employer]. The U.S. Food and Drug Administration has [...] - CHEMISTRY RICHIE ROBINS Performing Organization Address [facility]/State/ZIP Co de Phone Number [place] [address] * (ABNORMAL) COMPREHENSIVE METABOLIC PANEL (01/09/2012 5:25 PM T) [facility] Glucose 84 70 - 105 mg/dL 01/09/2012 6:26 PM T [facility] Sodium 138 136 - 145 mmol/L 01/09/2012 6:26 PM T [facility] Potassium 3.7 3.5 - 5.1 mmol/L 01/09/2012 6:26 PM T [facility] Chloride 106 98 - 107 mmol/L 01/09/2012 6:26 PM T [facility] CO2 21 20 - 28 mmol/L 01/09/2012 6:26 PM T [facility] Calcium 10.07 8.92 - 10.32 mg/dL 01/09/2012 6:26 PM [facility] Anion Gap 11 5 - 20 mmol/L 01/09/2012 6:26 PM T [facility] BUN 6.3 6.1 - 21.0 mg/dL 01/09/2012 6:26 PM [facility] Creatinine 0.60(L) 0.62 - 1.00 mg/dL 01/09/2012 6:26 PM [facility] eGFR by MDRD ml/min/1. 73m2 01/09/2012 6:26 PM [facility] Comment:eGFR calculations ar e not performed for children under 18 years old. eGFR by MDRD ml/min/1. 73m2 01/09/2012 6:26 PM [facility] Comment:eGFR calculations ar e not performed for children under 18 years old. Alkaline Phosphatase 144 100 - 390 U/L 01/09/2012 6:26 PM T [facility] ALT 16 6 - 46 U/L 01/09/2012 6:26 PM [facility] AST 24 3 - 35 U/L 01/09/2012 6:26 PM [facility] Protein Total 7.5 6.4 - 8.5 gm/dL 01/09/2012 6:26 PM [facility] Albumin 4.6 3.3 - 5.0 gm/dL 01/09/2012 6:26 PM T [facility] Bilirubin Total 0.3 0.3 - 1.2 mg/dL 01/09/2012 6:26 PM CDT [facility] Blood specimen (specimen) BLOOD SPECIMEN / Unknown 01/09/2012 5:25 PM CDT 01/09/2012 5:38 PM CDT Shirley Garcia MD LAB - CHEMISTRY RICHIE ROBINS [facility] Organization Address City/State/[facility] Co de Phone Number [facility] [place] [address] * (ABNORMAL) CBC W AUTO DIFFERENTIAL (01/09/2012 5:25 PM CDT) WBC 7.6 4.5 - 14.5 x10^9/L 01/09/2012 6:17 PM CDT [facility] RBC 5.09 4.00 - 5.20 x10^12/L 01/09/2012 6:17 PM CDT [facility] Hemoglobin 15.4 11.5 - 15.5 g/dL 01/09/2012 6:17 PM CDT [facility] Hematocrit 43.1 35.0 - 45.0 % 01/09/2012 6:17 PM CDT [facility] MCV 84.7 77.0 - 95.0 fl 01/09/2012 6:17 PM CDT [facility] MCH 30.3 25.0 - 33.0 pg 01/09/2012 6:17 PM CDT [facility] MCHC 35.7 31.0 - 37.0 gm/dL 01/09/2012 6:17 PM CDT [facility] RDW-CV 12.3 11.5 - 14.0 % 01/09/2012 6:17 PM CDT [facility] MPV 10.8(H) 6.0 - 9.5 fl 01/09/2012 6:17 PM CDT [facility] Neutrophils % 36 24 - 66 % 01/09/2012 6:17 PM CDT [facility] Lymphocytes % 46 22 - 61 % 01/09/2012 6:17 PM CDT [facility] Monocytes % 9 3 - 15 % 01/09/2012 6:17 PM CDT [facility] Eosinophils % 8 0 - 10 % 01/09/2012 6:17 PM CDT [facility] Basophils % 1 0 - 2 % 01/09/2012 6:17 PM CDT [facility] Immature Granulocytes 1 0 - 1 % 01/09/2012 6:17 PM CDT [facility] Neutrophil Absolute 2.71 x10^9/L 01/09/2012 6:17 PM CDT [facility] Lymphocytes Absolute 3.49 x10^9/L 01/09/2012 6:17 PM CDT [facility] Monocytes Absolute 0.68 x10^9/L 01/09/2012 6:17 PM CDT [facility] Eosinophils Absolute 0.60 x10^9/L 01/09/2012 6:17 PM CDT [facility] Basophils Absolute 0.05 x10^9/L 01/09/2012 6:17 PM CDT [facility] Immature Granulocytes Absolute 0.05 0.00 - 0.06 x10^9/L 01/09/2012 6:17 PM CDT [facility] Platelet Count 261 100 - 400 x10^9/L 01/09/2012 6:17 PM CDT [facility] Blood specimen (specimen) BLOOD SPECIMEN / Unknown 01/09/2012 5:25 PM CDT 01/09/2012 5:38 PM CDT Shirley Garcia MD LAB - HEMATOLOGY ORD ERABLES [facility] [address] [place] [address] * ALLERGEN TURKEY IGE (01/09/2012 5:25 PM CDT) Allergen [place] <0.10 <=0.34 kU/L 01/12/2012 2:17 AM CDT [facility] Blood specimen (specimen) BLOOD SPECIMEN / Unknown 01/09/2012 5:25 PM CDT 01/09/2012 5:37 PM CDT Shirley Garcia MD LAB - SEROLOGY ORDER RADHA [facility] [address] [place] [address] * ALLERGEN WALNUT (F4) IGE (01/09/2012 5:25 PM CDT) Allergen [place] <0.10 <=0.34 kU/L 01/12/2012 2:17 AM CDT [facility] [employer] Blood specimen (specimen) BLOOD SPECIMEN / Unknown 01/09/2012 5:25 PM CDT 01/09/2012 5:37 PM CDT Shirley Garcia MD LAB - SEROLOGY ORDER RADHA Performing Organization Address [facility] de Phone Number [facility] [address] [place] [address] * ALLERGEN MOUSE IGE (01/09/2012 5:25 PM CDT) Allergen Mouse Urine IgE <0.10 <=0.34 kU/L 01/12/2012 2:17 AM CDT [facility] Blood specimen (specimen) BLOOD SPECIMEN / Unknown 01/09/2012 5:25 PM CDT 01/09/2012 5:37 PM CDT Shirley Garcia MD LAB - SEROLOGY ORDER RADHA Performing Organization Address [facility] de Phone Number [facility] [address] [place] [address] * ALLERGEN COCKROACH IGE (01/09/2012 5:25 PM CDT) Allergen Cockroach [place] <0.10 <=0.34 kU/L 01/12/2012 2:17 AM CDT [facility] Comment: INTERPRETIVE INFORMATION: ALLERGEN, [place] Cockroach Analyte specific reagents (ASR) are used in many laboratory tests necessary for standard medical care and generally do not require U.S. Food and Drug Administration (FDA) approval or clearance. This test was developed and its performance characteristics determined by [employer]. The U.S. Food and Drug Administration has [...] - CHEMISTRY RICHIE ROBINS Performing Organization Address [facility] de Phone Number [address] [place] [address] * ALLERGEN CHICKEN MEAT IGE (01/09/2012 5:25 PM CDT) Allergen Chicken Meat <0.10 <=0.34 kU/L 01/12/2012 2:17 AM CDT [facility] [employer] Blood specimen (specimen) BLOOD SPECIMEN / Unknown 01/09/2012 5:25 PM CDT 01/09/2012 5:37 PM CDT Shirley Garcia MD LAB - CHEMISTRY RICHIE ROBINS Performing Organization Address [facility] de Phone Number H[address] [place] [address] * (ABNORMAL) ALLERGEN BEEF IGE (01/09/2012 5:25 PM CDT) Allergen Beef 0.38(H) <=0.34 kU/L 01/12/2012 2:17 AM CDT [employer] [employer] Blood specimen (specimen) BLOOD SPECIMEN / Unknown 01/09/2012 5:25 PM CDT 01/09/2012 5:37 PM CDT Shirley Garcia MD LAB - CHEMISTRY RICHIE ROBINS Performing Organization Address [facility] de Phone Number [address] [place] [address] * ALLERGEN APPLE IGE (01/09/2012 5:25 PM CDT) Allergen Apple 0.10 <=0.34 kU/L 01/12/2012 2:17 AM CDT [facility] Blood specimen (specimen) BLOOD SPECIMEN / Unknown 01/09/2012 5:25 PM CDT 01/09/2012 5:37 PM CDT Shirley Garcia MD LAB - SEROLOGY COLLETTE RADHA Performing Organization Address [facility] de Phone Number [address] [place] [address] * ALLERGEN BANANA IGE (01/09/2012 5:25 PM CDT) Allergen Banana <0.10 <=0.34 kU/L 01/12/2012 2:17 AM CDT [facility] Blood specimen (specimen) BLOOD SPECIMEN / Unknown 01/09/2012 5:25 PM CDT 01/09/2012 5:37 PM CDT Shirley Garcia MD LAB - CHEMISTRY RICHIE ROBINS [facility] Organization Address City/State/ZIP Co de Phone Number [facility] [address] [place] [address] * (ABNORMAL) ALLERGEN INHALANT COMPREHENSIVE PROFILE (01/09/2012 5:25 PM CDT) IgE Total 87 2 - 696 IU/mL 01/12/2012 2:17 AM CDT [facility] Comment: REFERENCE INTERVAL: Immunoglobulin E, Serum Access complete set of age- and/or gender-specific reference intervals for this test in the [facility] Laboratory Test Directory ([employer]). Allergen Common Ragweed <0.10 <=0.34 kU/L 01/12/2012 2:17 AM CDT [facility] Allergen Mugwort <0.10 <=0.34 kU/L 01/12/2012 2:17 AM CDT [facility] Allergen Polish Plantain <0.10 <=0.34 kU/L 01/12/2012 2:17 AM CDT [facility] Allergen [place] 0.12 <=0.34 kU/L 01/12/2012 2:17 AM CDT [facility] Allergen [place] Thistle 0.14 <=0.34 kU/L 01/12/2012 2:17 AM CDT [facility] Allergen [place] Grass <0.10 <=0.34 kU/L 01/12/2012 2:17 AM CDT [facility] Allergen [place] Grass Perennial <0.10 <=0.34 kU/L 01/12/2012 2:17 AM CDT [facility] Allergen [place] Grass <0.10 <=0.34 kU/L 01/12/2012 2:17 AM CDT [facility] Allergen Deanne Grass <0.10 <=0.34 kU/L 01/12/2012 2:17 AM CDT [facility] Allergen John Grass <0.10 <=0.34 kU/L 01/12/2012 2:17 AM CDT [facility] Allergen [place] <0.10 <=0.34 kU/L 01/12/2012 2:17 AM CDT [facility] Allergen [place] 0.13 <=0.34 kU/L 01/12/2012 2:17 AM CDT [facility] Allergen Elm 0.11 <=0.34 kU/L 01/12/2012 2:17 AM CDT [facility] Allergen [place] Tree <0.10 <=0.34 kU/L 01/12/2012 2:17 AM CDT [facility] Allergen [place] Tree <0.10 <=0.34 kU/L 01/12/2012 2:17 AM CDT [facility] Allergen [place] Tree <0.10 <=0.34 kU/L 01/12/2012 2:17 AM [...] Dander 14.00(H) <=0.34 kU/L 01/12/2012 2:17 AM CDT [facility] Allergen Dog Dander 0.66(H) <=0.34 kU/L 01/12/2012 2:17 AM CDT [facility] Allergen Horse Dander <0.10 <=0.34 kU/L 01/12/2012 2:17 AM CDT [facility] Allergen Cow Dander 0.15 <=0.34 kU/L 01/12/2012 2:17 AM CDT [facility] Allergen House Dust [place] 3.49(H) <=0.34 kU/L 01/12/2012 2:17 AM CDT [facility] Immunocap Score See Note 2 2:17 AM CDT [facility] Comment: REFERENCE INTERVAL: Allergen, Interpretation Less [...] Garcia MD LAB - SEROLOGY ORDER RADHA [facility] [address] [place] [address] * (ABNORMAL) ALLERGEN FOOD NUT MIX PROFILE (01/09/2012 5:25 PM CDT) Allergen [place] 0.19 <=0.34 kU/L 01/12/2012 2:17 AM CDT [facility] Allergen Coconut <0.10 <=0.34 kU/L 01/12/2012 2:17 AM CDT [facility] Allergen Peanut 0.91(H) <=0.34 kU/L 01/12/2012 2:17 AM CDT [facility] Allergen Pecan Nut <0.10 <=0.34 kU/L 01/12/2012 2:17 AM CDT [facility] Allergen Sesame Seed 0.30 <=0.34 kU/L 01/12/2012 2:17 AM CDT [facility] Immunocap Score See Note 2 2:17 AM CDT [facility] Comment: REFERENCE INTERVAL: Allergen, Interpretation Less than [...] Garcia MD LAB - CHEMISTRY [facility] Organization Address City/State/ZIP Co de Phone Number [facility] [address] [place] [address] * (ABNORMAL) ALLERGEN FOOD CEREAL PROFILE (01/09/2012 5:25 PM CDT) Allergen Barley 0.77(H) <=0.34 kU/L 01/12/2012 2:17 AM CDT [facility] Allergen Gluten 2.11(H) <=0.34 kU/L 01/12/2012 2:17 AM CDT [facility] Allergen Rice 0.24 <=0.34 kU/L 01/12/2012 2:17 AM CDT [facility] Allergen [place] IgE 0.66(H) <=0.34 kU/L 01/12/2012 2:17 AM CDT [facility] Allergen Wheat 2.06(H) <=0.34 kU/L 01/12/2012 2:17 AM CDT [facility] Immunocap Score See Note 2 2:17 AM CDT [facility] Comment: REFERENCE INTERVAL: Allergen, Interpretation Less [...] Garcia MD LAB - SEROLOGY ORDER RADHA [facility] [address] [place] [address] * (ABNORMAL) ALLERGEN FOOD COMMON ADULT FOOD PROFILE (01/09/2012 5:25 PM CDT) Allergen [place] <0.10 <=0.34 kU/L 01/12/2012 2:17 AM CDT [facility] Allergen Egg White <0.10 <=0.34 kU/L 01/12/2012 2:17 AM T [facility] Allergen Milk (Cow) 0.72(H) <=0.34 kU/L 01/12/2012 2:17 AM T [facility] Allergen Wheat 2.08(H) <=0.34 kU/L 01/12/2012 2:17 AM T [facility] Allergen [place] 0.19 <=0.34 kU/L 01/12/2012 2:17 AM T [facility] Allergen Peanut 0.95(H) <=0.34 kU/L 01/12/2012 2:17 AM T [facility] Allergen Soybean 0.19 <=0.34 kU/L 01/12/2012 2:17 AM T [facility] Allergen Shrimp <0.10 <=0.34 kU/L 01/12/2012 2:17 AM T [facility] Allergen Clam <0.10 <=0.34 kU/L 01/12/2012 2:17 AM T [facility] Allergen Codfish <0.10 <=0.34 kU/L 01/12/2012 2:17 AM T [facility] Allergen Scallop <0.10 <=0.34 kU/L 01/12/2012 2:17 AM T [facility] IgE Total 87 2 - 696 IU/mL 01/12/2012 2:17 AM [facility] Comment: REFERENCE INTERVAL: Immunoglobulin E, Serum Access complete set of age- and/or gender-specific reference intervals for this test in the [facility] Test Directory ([employer]). Immunocap Score See Note 2 2:17 AM T [facility] Comment: REFERENCE INTERVAL: Allergen, Interpretation Less than [...] Garcia MD LAB - CHEMISTRY [facility] Organization Address City/State/ZIP Co de Phone Number [facility] [address] [place] [address] * ALLERGEN FOOD VEGETABLE PROFILE (01/09/2012 5:25 PM CDT) Allergen Pea 0.15 <=0.34 kU/L 01/12/2012 2:17 AM CDT [facility] Allergen Carrot <0.10 <=0.34 kU/L 01/12/2012 2:17 AM CDT [facility] Allergen [place] 0.14 <=0.34 kU/L 01/12/2012 2:17 AM CDT [facility] Allergen Potato 0.15 <=0.34 kU/L 01/12/2012 2:17 AM CDT [facility] Allergen [place] 0.32 <=0.34 kU/L 01/12/2012 2:17 AM CDT [facility] Immunocap Score See Note 2 2:17 AM CDT [facility] Comment: REFERENCE INTERVAL: Allergen, Interpretation Less than [...] Garcia MD LAB - CHEMISTRY [facility] Organization Address City/State/ZIP Co de Phone Number [facility] [address] [place] [address] * ALLERGEN FOOD SEAFOOD PROFILE (01/09/2012 5:25 PM CDT) Allergen Codfish <0.10 <=0.34 kU/L 01/12/2012 2:17 AM CDT [facility] Allergen Crab <0.10 <=0.34 kU/L 01/12/2012 2:17 AM CDT [facility] Allergen Lobster <0.10 <=0.34 kU/L 01/12/2012 2:17 AM CDT [facility] Allergen Shrimp <0.10 <=0.34 kU/L 01/12/2012 2:17 AM CDT [facility] Allergen Tuna <0.10 <=0.34 kU/L 01/12/2012 2:17 AM CDT [facility] Immunocap Score See Note 2 2:17 AM CDT [facility] Comment: REFERENCE INTERVAL: Allergen, Interpretation Less [...] Garcia MD LAB - CHEMISTRY [facility] Organization Address City/State/ZIP Co de Phone Number [facility] [address] [place] [address] * ALLERGEN FOOD SALAD PROFILE (01/09/2012 5:25 PM CDT) Allergen Celery <0.10 <=0.34 kU/L 01/12/2012 2:17 AM CDT [facility] Allergen Lettuce <0.10 <=0.34 kU/L 01/12/2012 2:17 AM CDT [facility] Allergen Powderly 0.19 <=0.34 kU/L 01/12/2012 2:17 AM CDT [facility] Allergen Parsley <0.10 <=0.34 kU/L 01/12/2012 2:17 AM CDT [facility] Allergen Tomato 0.24 <=0.34 kU/L 01/12/2012 2:17 AM CDT [facility] Immunocap Score See Note 2 2:17 AM CDT [facility] Comment: REFERENCE INTERVAL: Allergen, Interpretation Less [...] Shirley Garcia MD LAB - CHEMISTRY [facility] Organization Address City/State/ZIP Co de Phone Number [facility] [address] [place] [address] documented in this encounter Visit Diagnoses Diagnosis EE (eosinophilic esophagitis) Eosinophilic esophagitis 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
--- OUTSIDE RECORDS SUMMARY | 2024-03-21 22:04 | XMS_ITS | Encounter Summary ---
Author Organization [facility] Address [address] [facility] [address] [place] [address] Care Team Providers Care Machine Driller Name Role Phone Lanny Hewitt MD Primary Care Provider [phone] Reason for Referral * - Closed Specialty Diagnoses / Procedures Referred By Contac t Referred To Contact Diagnoses Pulmonary nodules Eosinophilia Procedures CT CHEST WITH CONTRAST Anthony Glover MD [address] [place] [address] [facility] [address] [place] [phone] Referral ID Status Reason Start Date Expiration Date Visits Re quested Visits Authorized [id number] Closed 01/11/2012 02/10/2012 1 1 Reason for Visit * Reason Comments Evaluation 2 spots on lung Encounter Details Date Type Department Care Team (Latest Contact Info) Description 01/11/2012 8:00 AM CDT - 01/11/2012 11:59 PM CDT Hospital Encounter [facility] - Pulmonology [address] [place] [address] Keven Jackson MD [address] [place] [phone] Discharge Disposition: Home or Self Care Social [...] Taken Comments Blood Pressure - - Pulse 108 01/11/2012 8:03 AM CDT Temperature - - Respiratory Rate 22 01/11/2012 8:03 AM CDT Oxygen Saturation 100% 01/11/2012 8:03 AM CDT Inhaled Oxygen Concentration - - Weight 39.4 kg (86 lb 13.8 oz) 01/11/2012 8:03 A M CDT Height 145.5 cm (4' 9.28 ) 01/11/2012 8:03 AM CD T Body Mass Index 18.61 01/11/2012 8:03 AM CDT Body Mass Index Percentile 57.70% 01/11/2012 8:0 3 AM CDT Growth Chart: CDC (Boys, 2-2 0 Years) documented in this encounter Discharge Instructions * Patient Instructions* Zaira Arellano - 01/11/2012 9:29 AM CDT Prior auth for CT c contrast obtained from [facility] ([place]) @ [phone] #[id number] [facility] for 30 days starting today. documented in this encounter Medications at Time [...] as of this encounter Progress Notes * Anthony Glover MD - 01/11/2012 10:04 AM CDT Pulmonary New Consultation Visit I had the pleasure of seeing your patient, Lavelle Michael, for an initial consultation in the Pulmonary Clinic at [facility]. Lavelle Michael is a 11 y.o. male brought by both parents and grandmother presenting with: Hypereosinophilia. Lavelle has a history of mild exercise induced asthma, allergic rhinitis, and mild eczema over the past 5-7 years. These symptoms have not required aggressive daily treatment in the past. In October, he travel to [facility] for vacation. During the trip, he reporting beginning to have mild abdominal pain and abnormally colored stools which were soft. The stools continues to worsen over time to kirk diarrhea, signficiant abdominal pain, and vomiting. HE was seen at a local ED twice and treated with a coarse of Flagyl. The GI symptoms persisted and he was admitted to the GI service here in November. Peripheral eosinophilia and eosinophilic esophagitis, gastritis, and colonitis were found w ith endoscopy. Peripheral. Small nodules were also found in the right upper lobe and superior segment of the right lower lobe. He was treated with with an 8 day steroid burst and 5 week steroid wean.His symtpoms resolved with the steroids. However, over the last 2 weeks, he has begun having abnormal stools and abdominal pain again. He reports having a mild cough which parents describe as throat clearing. No deep, tight cough. No sputum production. No increased work of breathing. No wheezing. He states that with exercise he can developed chest tightness and the feeling like someone is sitting on his chest. Albuterol improves the chest tightness when it occurs. He has never required inhaled steroids. His mother reports that afew years ago, he was on Singulair for asthma and allergic rhinitis. He states the when he was on the oral steroid burst, his chest tightness improved but then returnedwhen the steroids stopped. Last week, he had an episode of increased chest tightness at school. He reports that he was breathing very fast, the albuterol did not seem to help, and he began having a tingling feeling in his legs. His father came to the school and reports that he was very anxious and may have been hyperventilating. Current Medications: reviewed medication list in the chart Current Outpatient Prescriptions Medication Sig Dispense Refill ??? fluticasone hfa (FLOVENT HFA) 220 MCG/ACT inhaler Take 2 Puffs by mouth 2 times daily. Swallow flovent. Donot Inhale. Indications: Eosinophilic Esophagitis 1 Inhaler 5 ??? cetirizine (ZYRTEC ALLERGY) 10 MG tablet Take 1 Tab by mouth at bedtime. 30 Tab 5 ??? albuterol HFA (PROVENTIL;VENTOLIN;PROAIR) 108 (90 BASE) MCG/ACT inhaler Inhale 2 Puffs by mouthevery 6 hours as needed. ??? lisdexamfetamine (VYVANSE) 40 MG capsule Take 40 mg by mouth once daily. ??? amphetamine-dextroamphetamine (ADDERALL) 5 MG tablet Take 5 mg by mouth every morning. Review of Systems: Review of Systems Constitutional: Negative for fever, activity change, appetite change, irritability and fatigue. HENT: Positive for congestion, rhinorrhea and postnasal drip. Eyes: Negative for redness and itching. Respiratory: Positive for cough and chest tightness. Negative for apnea, choking, shortness of breath, wheezing and stridor. Cardiovascular: Negative for chest pain, palpitations and leg swelling. Gastrointestinal: Positive for diarrhea. Negative for nausea, vomiting, abdominal pain and constipation. Musculoskeletal: Negative for myalgias, back pain and arthralgias. Skin: Positive for rash (eczema on back). Neurological: Positive for headaches (migraines). Negative for dizziness, seizures, facial asymmetry, speech difficulty, weakness and numbness. Hematological: Negative for adenopathy. Does not bruise/bleed easily. Past Medical History: I spent 25 minutes reviewing the past medical history in the chart including his labs, chest CT, and notes from the GI and Allergy physicians. Past Medical History Diagnosis Date ??? ADHD (attention deficit hyperactivity disorder) on adderall and vyvanse ??? Abdominal pain, diarrhea, emesis 11/09/2011 admitted hosp 3-4 week hx ??? Eosinophilia 11/10/2011 ??? Unspecified asthma dx 2005 exercise induced asthma--uses albuterol prn--last used 06/2011--never hosp last ER visit 2008 Past Surgical HIstory: Past Surgical History Procedure Date ??? Orchiopexy 11/27/2002 [facility]-Dr Beaver ??? Bone marrow biopsy 11/16/2011 Right; BONE MARROW BIOPSY Allergies: Allergies: reviewed allergy section in the chart Allergies Allergen Reactions ??? Eggs Other Egg yolks--cause migraines OK with egg whites and can have small amounts yolk if cooked in foods Environmental History: Type of home: Standard constructed home Type of heat: Forced air gas Type of air conditioning (if any): Central A/C Smoke exposure and/or smoking history: No Recent travel in October to [facility] [place] [facility]. No travel to [place]. Family History: Family History Problem Relation Age of Onset ??? GERD - Gastroesophageal Reflux Disease Father Physical Exam: Pulse 108 Resp 22 Wt 39.4 kg (86 lb 13.8 oz) BMI 18.61 kg/m2 57.72%ile based on CDC 2-20 Years BMI-for-age data. Physical Exam Constitutional: He appears well-developed and well-nourished. He is active. No distress. HENT: Right Ear: Tympanic membrane normal. Left Ear: Tympanic membrane normal. Nose: Nose normal. Mouth/Throat: Mucous membranes are moist. Oropharynx is clear. Eyes: Right eye exhibits no discharge. Left eye exhibits no discharge. Neck: Neck supple. No adenopathy. Cardiovascular: Normal rate, regular rhythm, S1 normal and S2 normal. Pulses are strong. No murmur heard. Pulmonary/Chest: Effort normal and breath sounds normal. No stridor. No respiratory distress. Air movement is not decreased. He has no wheezes. He has no rhonchi. He has no rales. He exhibits no retraction. Abdominal: Soft. Bowel sounds are normal. He exhibits no distension. There is no hepatosplenomegaly. There is no tenderness. There is no rebound and no guarding. Neurological: He is alert. Skin: Skin is warm. Capillary refill takes less than 3 seconds. Rash (dry skin with pinpoint papular rash on his back consistent with mild eczema) noted. He is not diaphoretic. Studies: Chest Radiograph: The Chest CT done last month before the steroid burst shows small, ill defined nodules in the posterior right upper lobe and superios segment of the right lower lobe. A follow up CXR was read has the nodules still being present. However, when I reviewed the CXR, I do not see any specific nodules. Pulmonary Function Studies: Done- The PFT was done after 20 minutes of heavy exercise in which he reported chest tightness. Parameter Actual (pre) % pred Actual (post) % change FVC 2.77 liters 108.2 % FEV1 2.72 liters 125.35 % [id number] 4 L/SEC 159.36 % PEF 6.03 L/SEC 115.08 % FEV1/FVC 98.19 % Interpretation: Technique - acceptable Flow Volume Loop - Appears normal. Bronchodilator Response - Not Performed Findings are consistent with Normal PFT. Assessment/Plan: Lavelle is a 11 yo with peripheral eosinophilia, and eosonophilic gastritis, esophagitis, and colonitis of unknown etiology. He has been worked up for parasites which has been negative. However, he was treated with Flagyl and Albendazole to insure that he does not have a parasite. He did respond to s teroids however, his symptoms are re-occuring since stopping the steroids. The discussion with Dr. Goff has been that the next step in the work up would be to try and obtain a tissue diagnosis. Thepulmonary nodules might provide a diagnosis. However, the steroid treatment may have resolved the pulmonary nodules. Will repeat the Chest CT today to re-assess the nodules. If the nodules are present, will review the case with surgery to discuss the possibility of obtaining a biopsy. documented in this encounter Procedure Notes * Document, Scanned - 03/11/2012 8:38 AM CSTAssociated Order(s): LAB RESULTS ORDER UGH COORDINATOR documented in this encounter Miscellaneous Notes * Miscellaneous Scans - Document, Scanned - 02/21/2012 9:40 AM CST UGH COORDINATOR documented in this encounter Plan of Treatment Not on file documented as of this encounter Procedures Procedure Name Priority Date/Time Associated Diagnosis Comments LAB RESULTS ORDER 03/11/2012 8:3 8 AM BOROUGH COORDINATOR documented in this encounter Results * LAB RESULTS ORDER (03/11/2012 8:38 AM BOROUGH COORDINATOR) Narrative 03/11/2012 8:38 AM BOROUGH COORDINATOR Procedure Note Document, Scanned - 03/11/2012 8:38 AM CST Scanned Document LAB - THERAPEUTIC DR STEINER MONITORING ORDERABLES * CT CHEST WITH CONTRAST (01/11/2012 11:41 [...] this time. Anthony Glover MD CT ORDERABLES documented in this encounter Visit Diagnoses Diagnosis Pulmonary nodules Other nonspecific abnormal finding of lung field Eosinophilia Pulmonary nodules Other nonspecific abnormal finding of lung field Eosinophilia documented in this encounter Care Teams Machine Driller Relationship Specialty Start Date End Date Lanny Hewitt MD PCP - General Pediatrics 11/09/11 12/30/13 documented as of this encounter
--- OUTSIDE RECORDS SUMMARY | 2024-03-21 22:04 | XMS_ITS | Encounter Summary ---
Author Organization [facility] Address [address] [address] Care Team Providers Care Fuel Buyer Name Role Phone Lanny Hewitt MD Primary Care Provider [phone] Encounter Details Date Type Department Care Team (Late st Contact Info) Description 05/22/2012 Orders Only [facility] Pediatrics - [address] [place] [address] Kenzie Cobb MD [facility] [place] [address] Social History Tobacco Use Types Packs/Day Years [...] on filedocumented in this encounter Care Teams Fuel Buyer Relationship Specialty Start Date End Date Lanny Hewitt MD PCP - General Pediatrics 11/09/11 12/30/13 documented as of this encounter
--- OUTSIDE RECORDS SUMMARY | 2024-03-21 22:04 | XMS_ITS | Encounter Summary ---
Author Organization [facility] Address [address] [place] [address] Care Team Providers Care Real Estate Processor Name Role Phone Lanny Hewitt MD Primary Care Provider [phone] Reason for Referral * - Closed Specialty Diagnoses / Procedures Referred By Leonard gonzalez Referred To Contact Diagnoses Pulmonary nodules Eosinophilia Procedures CT CHEST WITH CONTRAST Anthony Glover MD [address] [place] [address] [phone] Referral ID Status Reason Start Date Expiration Date Visits Re quested Visits Authorized [id number] Closed 01/11/2012 02/10/2012 1 1 Reason for Visit * - Closed Specialty Diagnoses / Procedures Referred By Leonard gonzalez Referred To Contact Diagnoses Pulmonary nodules Eosinophilia Procedures CT CHEST WITH CONTRAST Anthony Glover MD [address] [place] [id number] [phone] Referral ID Status Reason Start Date Expiration Date Visits Re quested Visits Authorized [id number] Closed 01/11/2012 02/10/2012 1 1 Encounter Details Date Type Department Care Team (Latest Contact Info) Description 01/11/2012 11:14 AM CDT - 01/11/2012 11:59 PM CDT Hospital Encounter [facility] - CT Scan [address] [place] [address] Anthony Glover MD [address] [place] [address] Discharge Disposition: Home or Self Care Social [...] on file documented as of this encounter Medications at Time of Discharge [...] daily. 01/12/2014 documented as of this encounter Procedure Notes * Document, Scanned - 02/21/2012 10:19 AM CSTAssociated Order(s): LAB RESULTS ORDER CLING CREW SUPERVISOR * Document, Scanned - 01/30/2012 10:39 AM CSTAssociated Order(s): IMAGING/RADIOLOGY/XRAY RESULTS ORDER CLING CREW SUPERVISOR * Document, Scanned - 01/18/2012 6:46 AM CSTAssociated Order(s): LAB RESULTS ORDER CLING CREW SUPERVISOR documented in this encounter Plan of Treatment Not on file documented as of this encounter Procedures Procedure Name Priority Date/Time Associated Diagnosis Comments LAB RESULTS ORDER 02/21/2012 10: 19 AM RECYCLING CREW SUPERVISOR IMAGING/RADIOLOGY/X RAY RESULTS ORDER 01/30/2012 10:39 AM RECYCLING CREW SUPERVISOR CT CHEST W CONTRAST Routine 01/11/2012 1 1:41 AM CDT Pulmonary nodules Eosinophilia documented in this encounter Results * LAB RESULTS ORDER (02/21/2012 10:19 AM RECYCLING CREW SUPERVISOR) Narrative Transcriptions Document, Scanned - 01/18/2012 6:46 AM CST Document, Scanned - 02/21/2012 10:19 AM CST Scanned Document LAB - THERAPEUTIC DR OBDULIA MONITORING ORDERABLES * IMAGING/RADIOLOGY/XRAY RESULTS ORDER (01/30/2012 10:39 AM RECYCLING CREW SUPERVISOR) Anatomical Region Laterality Modality Other Narrative 01/30/2012 10:39 AM RECYCLING CREW SUPERVISOR Procedure Note Document, Scanned - 01/30/2012 10:39 [...] lung field Eosinophilia documented in this encounter Administered Medications Inactive Administered Medications - up to 3 most recent administrations Medication Order MAR Action Action Date Dose Rate Site ioversol (OPTIRAY 320) 68 % injection Intravenous, CONTRAST ONCE, Starting on 01/11/12 at 1140, Until 01/12/12 at 0120 $ Given 01/11/2012 11:41 AM CDT 86 mL documented in this encounter Care Teams Real Estate Processor Relationship Specialty Start Date End Date Lanny Hewitt MD PCP - General Pediatrics 11/09/11 12/30/13 documented as of this encounter
--- OUTSIDE RECORDS SUMMARY | 2024-03-21 22:04 | XMS_ITS | Encounter Summary ---
Author Organization [facility] Address [address] [place] [address] Care Team Providers Care Toll Relief Operator Name Role Phone Lanny Hewitt MD Primary Care Provider [phone] Reason for Referral * - Closed Specialty Diagnoses / Procedures Referred By Leonard gonzalez Referred To Contact Gastroenterology Diagnoses Vomiting and diarrhea Procedures ENDOSCOPY, COLON, DIAGNOSTIC Kenzie Cobb MD [address] [place] [address] Referral ID Status Reason Start Date Expiration Date Visits Re quested Visits Authorized [id number] Closed 04/01/2012 09/28/2012 1 1 RANCE AGENCY OWNER * - Closed Specialty Diagnoses / Procedures Referred By Leonard gonzalez Referred To Contact Gastroenterology Diagnoses Vomiting and diarrhea Procedures EGD Kenzie Cobb MD [address] [place] [phone] Referral ID Status Reason Start Date Expiration Date Visits Re quested Visits Authorized [id number] Closed 04/01/2012 09/28/2012 1 1 [employer]ANCE AGENCY OWNER Reason for Visit * Reason Onset Date Comments Scheduling 04/01/2012 Encounter Details Date Type Department Care Team (Late st Contact Info) Description 04/01/2012 Telephone [facility] Pediatrics - GI [address] [place] [address] Kenzie Cobb MD [address] [place] [address] Scheduling Social History Tobacco Use Types Packs/Day [...] Telephone Encounter - Blossom Lujan RN - 04/01/2012 10:58 AM INSURANCE AGENCY OWNER Orders entered & colon prep instructions mailed to home address (300ml mag cit). RANCE AGENCY OWNER * Telephone Encounter - Kiley Silva - 04/01/2012 10:51 AM INSURANCE AGENCY OWNER Scheduled for EGD/Colon on 05/05/12 at 8:[address] Cobb. Need orders in please. RANCE AG[employer]Y OWNER documented in this encounter Plan of Treatment Not on file documented as of this encounter Results * ENDOSCOPY, COLON, DIAGNOSTIC (05/05/2012 9:33 AM INSURANCE AGENCY OWNER) Narrative [facility] ENDOSCOPY - 05/05/2012 9:33 AM INSURANCE AGENCY OWNER Procedure Note Kenzie Cobb MD - 05/05/2012 9:33 AM CST Kenzie Cobb MD GI PROCEDURE ORDERAB LES [facility] ENDOSCOPY [address] [facility] [place] [address] * EGD (05/05/2012 9:01 AM INSURANCE AGENCY OWNER) Narrative [facility] ENDOSCOPY - 05/05/2012 9:01 AM INSURANCE AGENCY OWNER Procedure Note Kenzie Cobb MD - 05/05/2012 9:00 AM CST Kenzie Cobb MD GI PROCEDURE ORDERAB LES [facility] ENDOSCOPY [address] [facility] [place] [address] documented in this encounter Visit Diagnoses Diagnosis Eosinophilia- Primary EE (eosinophilic esophagitis) and Eosinophilic Enterocolitis Eosinophilic esophagitis Vomiting and diarrhea Vomiting alone Vomiting and diarrhea Vomiting alone documented in this encounter Care Teams Toll Relief Operator Relationship Specialty Start Date End Date Lanny Hewitt MD PCP - General Pediatrics 11/09/11 12/30/13 documented as of this encounter
--- OUTSIDE RECORDS SUMMARY | 2024-03-21 22:04 | XMS_ITS | Encounter Summary ---
Author Organization [facility] Address [address] [facility] [address] Care Team Providers Care Brick Stacker Name Role Phone Lanny Hewitt MD Primary Care Provider [phone] Reason for Visit * Reason Comments Diarrhea hospital follow up Encounter Details Date Type Department Care Team (Latest Contact Info) Description 12/13/2011 2:12 PM CDT - 12/13/2011 11:59 PM CDT Hospital Encounter [facility] Pediatrics - GI [facility] [place] [address] Kenzie Cobb MD [address] [place] [id number] Discharge Disposition: Home or Self Care Social [...] - Inhaled Oxygen Concentration - - Weight 38.2 kg (84 lb 3.2 oz) 12/13/2011 2:12 PM CDT Height 144.8 cm (4' 9 ) 12/13/2011 2:12 PM CDT Body Mass Index 18.22 12/13/2011 2:12 PM CDT Body Mass Index Percentile 52.48% 12/13/2011 2:1 2 PM CDT Growth Chart: [facility] (Boys, 2-2 0 Years) documented in this encounter Discharge Instructions * Patient Instructions* Kenzie Cobb MD - 12/13/2011 2:50 PM CDT Warren Valderrama is doing well Continue prednisone taper Please schedule an appointment with Allergy/Immunology for 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 Lets start a 6 food elimination diet - meaning eliminate dairy, egg, soy, wheat, fish/shellfish, nuts (peanuts and treenuts) We will plan for a repeat endoscopy in 3 months. documented in this encounter Medications at Time of Discharge Medication Sig Dispensed Refills Start Date End Date albuterol HFA (PROVENTIL;VENTOLIN;ME OAIR) 108 (90 BASE) MCG/ACT inhaler Inhale 2 Puffs by mouth every 6 hours as needed. 02/17/2015 amphetamine-dextroamph etamine (ADDERALL) 5 MG tablet Take 5 mg by mouth every morning. 01/12/2014 esomeprazole (NEXIUM) 10 MG packet Take 1 Packet by mouth 2 times daily for 30 days. 60 Packet 0 11/22/2011 12/22/2011 lisdexamfetamine (VYVANSE) 40 MG capsule Take 40 mg by mouth once daily. 01/12/2014 predniSONE (DELTASONE) 10 MG tablet Take 1 Tab by mouth once daily for 7 days. Take 10 mg once daily for 7 days 7 Tab 0 12/10/2011 12/17/2011 predniSONE (DELTASONE) 5 MG tablet Take 1 Tab by mouth once daily for 7 days. Take 3 tabs by mouth- 15 mg once daily for 7 days 21 Tab 0 12/09/2011 12/16/2011 predniSONE (DELTASONE) 5 MG tablet Take 1 Tab by mouth once daily for 7 days. Take 1 tablet by mouth - 5 mg once daily for one week and then stop prednisone taper 7 Tab 0 12/18/2011 12/25/2011 documented as of this encounter Progress Notes * Kenzie Cobb MD - 12/14/2011 8:53 AM CDT CHIEF COMPLAINT: hospital follow up for diarrhea/eosinophilic enteropathy Lavelle Michael was seen in the Pediatric GI clinic along with his parents in consultation for hospital follow up of diarrhea/eosinophilic enteropathy HISTORY: Lavelle is a 11 y/o male whom I first evaluated during his hospitalization for diarrhea and peripheral eosinophilia. He had over a week long stay with extensive workup for evaluation/tereatment of hissymtpoms. Ultimately, as symptoms persisted, bone marrow aspiation and endoscopy (upper and lower) were performed. Flow cytometeric analysis of bone marrow aspirate did not show any evidence of non-hodgkin lymphomaor acute leukemia, there was predominance of eosinophils in the bone marrow. THe endoscopy was consistent with signficant eosinophilic enteropathy - with significant eosinophilic infiltrate in the esophagus, stomach and duodenum. The colon did not have any pathology. Lavelle did not have any improvement with swallowed fluticasone, however had a marked symptom improvement in terms of diarrhea and peripheral eosinophilia with burst of oral steroids. Gene testing was sent for eosinophilia syndromes including FISH analysis for FIP1 L1 PDGFR alpha evaluating for hypereosinophlic syndrome was negative (normal testing). He is now asymptomatic in terms of diarrhea - having 1 well formed stool daily. He denies abdominalpain. He is no longer having flushing episodes that was occuring during hospitalization. He reports some chest tightness occasionally. His parents do note that Lavelle was asked to sit out of gym class as he seem to be short of breath and tired according to his nuclear physics teacher. PAST MEDICAL HISTORY: Lavelle's past medical history includes: Past Medical History Diagnosis Date ??? ADHD (attention deficit hyperactivity disorder) on adderall and vyvanse ??? Abdominal pain, diarrhea, emesis 11/09/2011 admitted hosp 3-4 week hx ??? Eosinophilia 11/10/2011 ??? Unspecified asthma dx 2004 exercise induced asthma--uses albuterol prn--last used 06/2011--never hosp last ER visit 2008 Lavelle's past surgical history includes: Past Surgical History Procedure Date ??? Orchiopexy 11/27/2002 [facility]-Dr Beaver ??? Bone marrow biopsy 11/16/2011 Right; BONE MARROW BIOPSY No history on file. SOCIAL HISTORY: History Social History Narrative Lives with mother, father, brother, and sister. Attends 7th grade. [employer]. No recent foreign travel or camping. FAMILY HISTORY: Family History Problem Relation Age of Onset ??? GERD - Gastroesophageal Reflux Disease Father REVIEW OF SYSTEMS GEN: no fevers, chills or weight loss HEENT: no cough, cold, congestion, rhinorrhea, mouth ulcers, sore throat CV: no known cardiac disease PULM: recent complaints of shortness of breath - nuclear physics teacher asked him to sit out at gym. +h/o asthma GI: see HPI above; : no dysuria or hematuria HEME: no easy bleeding or bruising NEURO: no headaches, no seizures PSYCH: no history of mental illness ALL/IMMUNO: positive h/o peripheral eosinophilia . CURRENT MEDICATIONS: Current Outpatient Prescriptions Medication Sig Dispense Refill ??? predniSONE (DELTASONE) 5 MG tablet Take 1 Tab by mouth once daily for 7 days. Take 3 tabs by mouth- 15 mg once daily for 7 days 21 Tab 0 ??? predniSONE (DELTASONE) 10 MG tablet Take 1 Tab by mouth once daily for 7 days. Take 10 mg once daily for 7 days 7 Tab 0 ??? esomeprazole (NEXIUM) 10 MG packet Take 1 Packet by mouth 2 times daily for 30 days. 60 Packet 0 ??? albuterol HFA (PROVENTIL;VENTOLIN;PROAIR) 108 (90 BASE) MCG/ACT inhaler Inhale 2 Puffs by mouthevery 6 hours as needed. ??? lisdexamfetamine (VYVANSE) 40 MG capsule Take 40 mg by mouth once daily. ??? amphetamine-dextroamphetamine (ADDERALL) 5 MG tablet Take 5 mg by mouth every morning. ??? predniSONE (DELTASONE) 5 MG tablet Take 1 Tab by mouth once daily for 7 days. Take 1 tablet by mouth - 5 mg once daily for one week and then stop prednisone taper 7 Tab 0 PHYSICAL EXAM: Wt 38.193 kg (84 lb 3.2 oz) BMI 18.22 kg/m2 GEN: awake, alert, interactive with exam in no acute distress HEENT: rounded facies (steroid related) sclera anicteric, mucus membranes moist, no oral lesion CV: regular rate and rhythm without murmur LUNGS: clear to auscultation bilaterally, equal aeration bilat ABD: soft, not apparently tender or distended, no organomegaly, bowel sounds present EXT: warm and well perfused NEURO: no obvious deficits PSYCH: appropriate mentation for age RESULTS: 11/23/11 Cytogenetics panel Results Analysis of 20 cells (8 cells karyotyped, GTL-banding) from 24-hour unstimulated and 72-hour Interleukin stimulated bone marrow cultures showed the following chromosome pattern: 46,XY[20] Addendum 11/23/2011 FISH results: Fluorescence In-Situ Hybridization (FISH): Analysis of 200 interphase cells hybridized with CHIC2 probes* (FIP1L1,LNX,PDGFRA), directed onto 4q12, CSF1R (D5S23,V2F585,CSF1R/PDGFRB) directed onto 7i61-64 region, FGFR1 and CEP8 directed onto 8p11.2 and chromosome 8 centromere, and CBFB dual color breakapart probes showed the following results showed the following results: nuc promise(FIP1L1,LNX,PDGFRA)x2[198/200],(D5S23,Q6V596,CSF1R/PDGFRBx2)[198/200],(FGFR1, CEP8)x2[198/200],(QBCP1j8)[196/200] Normal Addendum 11/26/2011 Array-CGH results were done for validation purpose and therefore no charge was made: Bone marrow and control DNA were labeled with different fluorescent tags and hybridized onto Kids Movie-Activaero/MoneyReef-18. Array-CGH analysis of both DNAs revealed no clinically significant deviation indicating no deletionnor duplication: arr(1-22)x2,(XY)x1 Normal Male Interpretation Male chromosome analysis showing 46,XY with no evidence for any clonal structural or numerical abnormality in all cells examined at 400 average band resolution. Addendum 11/23/2011 FISH interpretation: FISH was negative for all the probes of eosinophilia panel. The cutoff values for any break apart is at least 3 to 5%, for any rearrangement is 1%. Efficiency of the probes is satisfactory. Addendum 11/26/2011 Array-CGH interpretation: Bone marrow was referred for array-CGH (Comparative Genome Hybridization) or Chromosomal MicroarrayAnalysis (J2EE CONSULTANT) to rule out gains or losses. Array-CGH using Renew Fibre12/Sense.ly18 revealed no clinically significant abnormality for the regions included on the current version. Variants were identified and found to be benign. A duplication of less than 500 kb and a deletion that contains no known gene would be considered a benign variant at this point. A duplication of lessthan 500 kb that contains part of a gene found duplicated in the database of genome variants would also be considered a benign variant at this point. Note: Array-CGH does not detect balanced translocations, inversions, low level mosaicism or balanced insertions. In addition, gene abnormalities of a size less than 10 Kb and imprinting defects can'tbe ruled out by this assay. 11/12 fecal alpha-1-AT was 0.75 (mildly elevated) 11/19/11 CT Chest 1. Ill-defined nodular densities in the right [...] resuscitative efforts. 4. Circumaortic left renal vein. 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 His peripheral eosinophilia had resolved at time time of discharge after oral steroid thearpy. Other diagnostic considerations including leukemic and hypereosinophilic syndromes - results of bone marrow aspirate and FISH analyses are negative. 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 PLAN: 1. Continue steroid taper as schedule. 2. We will need to consider how to maintain his clinical remission- Systemic steroids is not a goodoption, perhaps food antigen mediated? I have advised family to start 6 food elimination diet (noted positive cow's milk, wheat; mild positive oats) I will plan for repeat upper endoscopy in 3 months to re-evaluate his symptoms (presume that it would be much improved s/p oral steroids and elimination of commonly antigenic foods. 3. I have requested referral to allergy/immunology to help guide further evaluation, particularly for food allergy. 4. CXR given recently clinical history of shortness of air and CT finding of nonspecific nodularities in upper lung lobes. Will discuss with immunology whether Churg-Sumi would be consideration ifthere are pulmonary findings 5. Repeat CBC at end of prednisone course (evaluating for peripheral eosinophilia Plan of care, including education on the safe and effective use of medication(s) and/or medical equipment if prescribed, was discussed with the Roberto and his parents who verbalized understanding andagreed with the treatment options discussed. 12/14/2011 8:53 AM documented in this encounter Miscellaneous Notes * Miscellaneous Scans - Document, Scanned - 01/01/2012 10:50 AM CDT * Miscellaneous Scans - Document, Scanned - 12/27/2011 2:28 PM CDT documented in this encounter Plan of Treatment Not on file documented as of this encounter Visit Diagnoses Not on filedocumented in this encounter Care Teams Brick Stacker Relationship Specialty Start Date End Date Lanny Hewitt MD PCP - General Pediatrics 11/09/11 12/30/13 documented as of this encounter
--- OUTSIDE RECORDS SUMMARY | 2024-03-21 22:04 | XMS_ITS | Encounter Summary ---
Author Organization [facility] Address [address] [facility] [place] [address] Care Team Providers Care Metal Template Maker Name Role Phone Lanny Hewitt MD Primary Care Provider [phone] Reason for Visit * Reason Comments Follow-up Encounter Details Date Type Department Care Team (Latest Contact Info) Description 02/12/2012 2:45 PM JEWELRY MAKER - 02/12/2012 11:59 PM JEWELRY MAKER Hospital Encounter [facility] Pediatrics - Allergy [address] [place] [address] Kunal Goff MD [address] [place] [address] Discharge Disposition: Home or Self Care Social [...] - Inhaled Oxygen Concentration - - Weight 39.5 kg (87 lb 1.3 oz) 02/12/2012 2:59 PM JEWELRY MAKER Height 148.6 cm (4' 10.5 ) 02/12/2012 2:59 PM CS T Body Mass Index 17.89 02/12/2012 2:59 PM JEWELRY MAKER Body Mass Index Percentile 45.12% 02/12/2012 2:5 9 PM JEWELRY MAKER Growth Chart: [facility] (Boys, 2-2 0 Years) documented in this encounter Discharge Instructions * Patient Instructions* Sonya Archuleta LPN - 02/12/2012 4:24 PM JEWELRY MAKER Please review: 1. Environmental controls for mold, cat, dog, dust mite, trees, weeds, and cow. 2. A strict food elimination diet for milk, wheat, peanut and tree nuts. 3. Eczema care instructions with daily bathing with sensitive skin Dove bar soap followed by moisterization with scent free vaseline. Mometasone ointment is to be applied to red, itchy rashes once a day prn, but not more than half the days of a month. Thank you. LRY MAKER documented in this encounter Medications at Time [...] Progress Notes * Kunal Goff MD - 02/12/2012 3:34 PM CST I had the pleasure of seeing Lavelle Michael who is a 11 y.o. male, today in Allergy and Immunology at [facility] . The patient is brought to see us today by his mother and father. He was originally hospitalized November 08 for diarrhea, emesis and chest discomfort. He was found to have marked eosinophilia, with a workup as noted in the problem list. He was subsequently seen by me was 01/09/12, when he was one week off oral prednisone. At that time the 6 food elimination diet started by GI was continued, and swallowed Flovent was started. He is still complaining of chest tightness or pressure about 2-3 times a week. He has belly pain and nausea daily. He does not have emesis. He does feel like he has some regurgitation. He is avoiding milk/dairy and most wheat product products. He does not eat much egg, nuts or seafood. The family could not afford to continue the 6 food elimination diet. He did the 6 food elimination diet for about 6-8 weeks without a change in his symptoms. He is using the Flovent 220, 2x2. He has not had oral prednisone again. He had recurrence of a flat red, non pruritic rash on face a couple of times. He has not had clear reactions to food. He has eczema, without recent flares. He does not wheeze in his chest. He occasionally cough with exertion, but not at night. Dr. Glover did an exercise PFT study which was normal. Albuterol does not help his symptoms. He had a chest CT on 11/19/11 which showed some nodular densities in his RUL and RLL. We initially had some concern about Churg Sumi Vasculitis. A repeat Chest CT 01/11/12 showed resolution of the nodules, so a lung biopsy was not pursued. He has runny nose, year round. He has not had intercurrent infections. He has a history of Patient Active Problem List Diagnoses Date Noted ??? Eczema 02/12/2012 ??? Allergic [...] = 606 off prednisone for 4 weeks CRP elevated, IgG- 360, IgE normal, IgA [...] 11/09/2011 - Continue home Adderall and Vyvanse Allergies Allergen Reactions ??? Milk Protein ??? Peanut-Derived ??? Wheat Current Outpatient Prescriptions on File Prior to Encounter Medication Sig Dispense Refill ??? fluticasone hfa [...] Take 5 mg by mouth every morning. REVIEW OF SYSTEMS: above EXAMINATION: Wt Readings from Last 3 Encounters: 02/12/12 39.5 kg (87 lb 1.3 oz) (30.65%*) 01/11/12 39.4 kg (86 lb 13.8 oz) (32.18%*) 01/09/12 39.69 kg (87 lb 8 oz) (33.71%*) * Growth percentiles are based on CDC 2-20 Years data. Ht Readings from Last 3 Encounters: 02/12/12 1.486 m (4' 10.5 ) (27.87%*) 01/11/12 1.455 m (4' 9.28 ) (17.93%*) 01/09/12 1.454 m (4' 9.25 ) (17.68%*) * Growth percentiles are based on CDC 2-20 Years data. Body mass index is 17.89 kg/(m^2). 45.14%ile based on CDC 2-20 Years BMI-for-age data. 30.65%ile based on CDC 2-20 Years vnxhrw-hlb-mzb data. 27.87%ile based on CDC 2-20 Years paootix-wsu-rvv data. Wt 39.5 kg (87 lb 1.3 oz) BMI 17.89 kg/m2 General Assessment: Lavelle is a well-appearing, in no apparent distress Skin Exam: No observable rash Eyes: no conjunctival injection Ears: normal TMs bilaterally Nose: clear rhinorrhea and mucosal pallor Mouth: 2+ tonsils Neck: no adenopathy Heart: Normal PMI, regular rate & rhythm, normal S1,S2, no murmurs, rubs, or gallops Chest: clear to auscultation Abdomen: soft, non-tender. Bowel sounds normal. No masses, no organomegaly Extremities: no clubbing RESULTS FROM TODAYS EVALUATION: Quality of Life Questionnaire Quality of Life Symptoms Sneezin-Some of the time Stuffy nose: 2-Most of the time Runny nose: 4-A little of the time Postnasal drainage: 2-Most of the time Itchy eyes/ itchy nose: 4-A little of the time Quality of Life Total Score: 15 Quality of Life Total Score %: 60 Factors Affecting Allergy/Asthma Allergens: Freshly mowed grass;Rosado;Flower pollen;Trees;Cat/Cat hair/cat dander Change Triggers: Cold days Asthma Control Test (>12 years of age) ACT Questions for the child 12 yrs & over How often does asthma prevent you from doing things?: 5-None of the time How often were you short of breath in the last 4 weeks?: 5-Not at all # of days asthma symptoms woke you up in the night or earllier than usual?: 5- Not at all # of days you used your rescue inhaler/nebulizer?: 5-Not at all How would you rate your asthma control in the last 4 weeks?: 5-Completely controlled ACT Total Score for the child 12 yrs & >: 25 ACT Questions for the parents of child 12 yrs & > # of days child had asthma symptoms in the last 4 weeks?: 5-Not at all # of days child was wheezing in the last 4 weeks?: 5-Not at all # of days child wakes with asthma at night in the last 4 weeks?: 5-Not at all ACT Total Score for the parents of child 12 yrs & >: 15 ACT Total Score Ages 12 & Over ACT Total Score: 40 IMPRESSIONS: Patient Active Problem List Diagnoses Date Noted ??? Eczema 02/12/2012 ??? Allergic [...] = 606 off prednisone for 4 weeks CRP elevated, IgG- 360, IgE normal, IgA [...] 11/09/2011 - Continue home Adderall and Vyvanse PLAN: For Lavelle, I have prescribed: Orders Placed This Encounter ??? fluticasone hfa (FLOVENT HFA) 220 MCG/ACT inhaler Sig: Take 2 Puffs by mouth 2 times daily. Take 2 puffs orally while holding breath 1 minute apart, then drink some water. Indications: Eosinophilic Esophagitis Dispense: 1 Inhaler Refill: 6 ??? cetirizine (ZYRTEC ALLERGY) 10 MG tablet Sig: Take 1 Tab by mouth at bedtime. Dispense: 30 Tab Refill: 5 ??? mometasone (ELOCON) 0.1 % ointment Sig: Apply to affected area once daily as needed (for red, itchey skin). Dispense: 15 g Refill: 6 A repeat EGD, +/- colonoscopy is recommended in 3 months, along with a FU CBC. If marked eosinophilia recurs, the hypereosinophilic syndrome should be reconsidered. If pulmonary abnormalities recur, Churg Sumi Vasculitis should be reconsidered. EDUCATION: We have reviewed: An elimination diet for milk, wheat, peanut and tree nuts. Nutrition appointment Saturday as scheduled Continued use of the swallowed Flovent. Return in about 4 months (around 06/10/2012). LRY MAKER documented in this encounter Miscellaneous Notes * Miscellaneous Scans - Document, Scanned - 03/25/2012 10:48 AM CST LRY MAKER documented in this encounter Plan of Treatment Not on file documented as of this encounter Visit Diagnoses Diagnosis EE (eosinophilic esophagitis) Eosinophilic esophagitis Eczema Contact dermatitis and other eczema, due to unspecified cause Eosinophilia Allergic rhinitis Allergic rhinitis, cause unspecified documented in this encounter Care Teams Metal Template Maker Relationship Specialty Start Date End Date Lanny Hewitt MD PCP - General Pediatrics 11/09/11 12/30/13 documented as of this encounter
--- OUTSIDE RECORDS SUMMARY | 2024-03-21 22:04 | XMS_ITS | Encounter Summary ---
Author Organization [facility] Address [address] [place] [address] Care Team Providers Care Referral Rn Name Role Phone Lanny Hewitt MD Primary Care Provider [phone] Reason for Referral * - Closed Specialty Diagnoses / Procedures Referred By Leonard gonzalez Referred To Contact Cardiology Diagnoses Eosinophilia Procedures ECHO CONSULT - PEDIATRIC Kenzie Cobb MD [address] [place] [phone] Referral ID Status Reason Start Date Expiration Date Visits Re quested Visits Authorized [id number] Closed 05/20/2012 11/16/2012 1 1 Reason for Visit * - Closed Specialty Diagnoses / Procedures Referred By Leonard gonzalez Referred To Contact Cardiology Diagnoses Eosinophilia Procedures ECHO CONSULT - PEDIATRIC Kenzie Cobb MD [address] [place] [phone] Referral ID Status Reason Start Date Expiration Date Visits Re quested Visits Authorized [id number] Closed 05/20/2012 11/16/2012 1 1 Encounter Details Date Type Department Care Team (Latest Contact Info) Description 05/26/2012 8:55 AM CDT - 05/26/2012 1:32 PM CDT Hospital Encounter [facility] at [address] [place] [address] Kenzie Cobb MD [address] [place] [address] Merary Martinez MD [address] [place] [address] Discharge Disposition: Home or Self Care Social [...] 02/12/2012 10/17/2016 documented as of this encounter Miscellaneous Notes * Miscellaneous Scans - Document, Scanned - 06/16/2012 9:56 AM CDT documented in this encounter Plan of Treatment Not on file documented as of this encounter Procedures Procedure Name Priority Date/Time Associated Diagnosis Comments ECHO CONSULT - PEDIATRIC Routine 05/26/2012 8:57 AM CDT Eosinophilia documented in this encounter Results * ECHO CONSULT - PEDIATRIC (05/26/2012 8:57 AM CDT) 05/26/2012 8:57 AM CDT Narrative [facility] - 05/26/2012 1:16 PM CDT [facility] , Transthoracic Echocardiogram 2D, M-mode, Doppler, and Color Doppler Name: LAVELLE REYES MR #: [id number] Study date: 05/26/2012 Age: 11 years : 2000 Gender: Male Ht: 58.9 in / 149.5 cm Wt: 82.1 lb / 37.3 kg BSA: 1.26 m?? HR: BP: / age: LM: Maternal age: FINISHER HOT STRIP: ??Merary Martinez MD PEDIATRIC ECHO CREAM GATHERER: ??Jacob Fagan BRIDGET Allergies: MILK PROTEIN, WHEAT, [...] g/m2 SV(Teich): 59.2 ml Procedure Note 05/26/2012 [facility] , Transthoracic Echocardiogram 2D, M-mode, Doppler, and Color Doppler Name: LAVELLE REYES MR #: [id number] Study date: 05/26/2012 Age: 11 years : 2000 Gender: Male Ht: 58.9 in / 149.5 cm Wt: 82.1 lb / 37.3 kg BSA: 1.26 m?? HR: BP: / age: LM: Maternal age: FINISHER HOT STRIP: Merary Martinez MD PEDIATRIC ECHO CREAM GATHERER: Jacob Fagan RDCS Allergies: MILK PROTEIN, WHEAT, [...] 59.2 ml Kenzie Cobb MD ECHO ORDERABLES [facility] [address] [place] [address] documented in this encounter Visit Diagnoses Diagnosis Eosinophilia documented in this encounter Care Teams Referral Rn Relationship Specialty Start Date End Date Lanny Hewitt MD PCP - General Pediatrics 11/09/11 12/30/13 documented as of this encounter
--- OUTSIDE RECORDS SUMMARY | 2024-03-21 22:04 | XMS_ITS | Encounter Summary ---
Author Organization [facility] Address [address] [facility] [place] [address] Care Team Providers Care Fast Food Crew Lead Name Role Phone Lanny Hewitt MD Primary Care Provider [phone] Reason for Referral * - Closed Specialty Diagnoses / Procedures Referred By Leonard gonzalez Referred To Contact Cardiology Diagnoses Eosinophilia Procedures ECHO CONSULT - PEDIATRIC Kenzie Cobb MD [address] [place] [address] Referral ID Status Reason Start Date Expiration Date Visits Re quested Visits Authorized [id number] Closed 05/20/2012 11/16/2012 1 1 Reason for Visit * Reason Onset Date Comments Parent Return Call 05/20/2012 Encounter Details Date Type Department Care Team (Late st Contact Info) Description 05/20/2012 Telephone [facility] Pediatrics - [address] [address] Kenzie Cobb MD [address] [place] [phone] Parent Return Call Social History Tobacco Use Types Packs/Day Years [...] Telephone Encounter - Blossom Lujan RN - 05/20/2012 12:37 PM CDT Talked with dad, he is OK having labs done along with the ECHO on 05/26. Dad did request that a cbc be done today because of pt's increasing symptoms, cbc ordered to be done today @ [facility] in [place]. * Telephone Encounter - Kiley Silva - 05/20/2012 11:47 AM CDT Dad returning call. * Telephone Encounter - Blossom Lujan RN - 05/20/2012 11:38 AM CDT Talked with [facility] in [place], they would only be able to do the cytokine panel if it is available @ [facility] [employer]. Talked with Ana Rosa @ [employer], they have no listing for cytokine at all. LM on home VM telling dad not to take pt to [facility] today to have labs done, also LM with lab at [facility] with this info. Scheduled for ECHO @ [facility] on 05/26 @ 0930, dad will need to be told to arrive to [facility] by 0900 that day. Dad will also need to go to lab for blood draw after echo. LM on home unidentified VM to call us. Talked with Hematology--they have the message but are awaiting instructions from physician to schedule. * Telephone Encounter - Kenzie Cobb MD - 05/20/2012 10:47 AM CDT Spoke with Dr. Goff today. 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's Eosinophilic Disorders center I just talked to dad about all the above. He will get labs done at [facility] in [place], [place]. He was planning to go to lab around 1 pm. Dad also told me that he started with vomting and diarrhea again for past few days. He had an episode of while sleeping yesterday in his bed. We will see how symptoms progress/results of above work-up, may need to tx again with entocort Thanks! Kenzie documented in this encounter Plan of Treatment Not on file documented as of this encounter Results * ECHO CONSULT - PEDIATRIC (05/26/2012 8:57 AM CDT) 05/26/2012 8:57 AM CDT Narrative [facility] - 05/26/2012 1:16 PM CDT [facility] , Transthoracic Echocardiogram 2D, M-mode, Doppler, and Color Doppler Name: LAVELLE REYES MR #: [id number] Study date: 05/26/2012 Age: 11 years : 2000 Gender: Male Ht: 58.9 in / 149.5 cm Wt: 82.1 lb / 37.3 kg BSA: 1.26 m?? HR: BP: / age: LM: Maternal age: [place]: ??Merary Martinez MD PEDIATRIC ECHO FILE DRAWER FINISHER: ??Jacob Fagan, BETINA Allergies: MILK PROTEIN, WHEAT, PEANUT-DERIVED, OTHER History/ [...] g/m2 SV(Teich): 59.2 ml Procedure Note 05/26/2012 [facility] , Transthoracic Echocardiogram 2D, M-mode, Doppler, and Color Doppler Name: LAVELLE REYES MR #: [id number] Study date: 05/26/2012 Age: 11 years : 2000 Gender: Male Ht: 58.9 in / 149.5 cm Wt: 82.1 lb / 37.3 kg BSA: 1.26 m?? HR: BP: / age: LM: Maternal age: WIN[place]: Merary Martinez MD PEDIATRIC ECHO FILE DRAWER FINISHER: Jacob Fagan RDCS Allergies: MILK PROTEIN, WHEAT, [...] 59.2 ml Kenzie Cobb MD ECHO ORDERABLES [facility] [address] [place] [address] documented in this encounter Visit Diagnoses Diagnosis Eosinophilia- Primary Eosinophilia documented in this encounter Care Teams Fast Food Crew Lead Relationship Specialty Start Date End Date Lanny Hewitt MD PCP - General Pediatrics 11/09/11 12/30/13 documented as of this encounter
--- OUTSIDE RECORDS SUMMARY | 2024-03-21 22:04 | XMS_ITS | Encounter Summary ---
Author Organization [facility] Address [address] [place] [address] Care Team Providers Care Administrative Executive Name Role Phone Lanny Hewitt MD Primary Care Provider Reason for Visit * Reason Onset Date Comments Update 01/07/2012 Diarrhea 01/07/2012 Encounter Details Date Type Department Care Team (Late st Contact Info) Description 01/07/2012 Telephone [facility] Pediatrics - GI [address] [place] [address] Kenzie Cobb MD [facility] [place] [address] Update; Diarrhea Social History Tobacco Use Types Packs/Day Years [...] Telephone Encounter - Blossom Lujan RN - 01/28/2012 2:17 PM COLLATERAL CLERK Order entered for CBC, mom will have drawn @ [facility] in [place]. Order faxed to [phone]. ATERAL CLERK * Telephone Encounter - Kenzie Cobb MD - 01/28/2012 2:04 PM CST Tried to call mom no answer. Im in clinic. Please call mom and arrange for CBC with differential. If lots of eosinophils we may need to consider round of oral steroids +/- repeat endoscopy. ATERAL CLERK * Telephone Encounter - Ariana Kelly - 01/28/2012 11:30 AM CST Patient having issues again- sent home from school today because he is feeling shakey- is having loose stools. Last time CBC was done, blood count was elevated. Mom afraid it is going up again and that he may wind up in house again. Please call to discuss. She can be reached at [phone] or dad's at [phone] ATERAL CLERK * Telephone Encounter - Jacqueline Brower APRN-CNS - 01/10/2012 9:43 AM CDT Cancel egd * Telephone Encounter - Kenzie Cobb MD - 01/09/2012 4:57 PM CDT Discussed with Dr. Goff (saw pt in clinic today).. Also believes that differential diagnosis should include systemic issues with eosinophilia. Does not believe that additional EGD tomorrow will filter changer (started swallowed fluticasone today).. I agree with that assessment as likely will be evidence of tissue eosinophilia on the endoscopy and next step would have been swallowed fluticasone. Lavelle has appt with Pulmonary Saturday to discuss symptoms further.. Churg lori on ddx.. Discussed with Dad.. Agree with No EGD tomorrow. * Telephone Encounter - Ariana Kelly - 01/07/2012 3:11 PM CDT Spoke to mom, patient scheduled for EGD on 01/10/12 at 930 am * Telephone Encounter - Kenzie Cobb MD - 01/07/2012 2:32 PM CDT Can you please set Lavelle up for an EGD this Saturday morning (he has a pulm appt at 8:00 am) Thanks! * Telephone Encounter - Kenzie Cobb MD - 01/07/2012 2:26 PM CDT Talked with mom to discuss CXR findings CXR from [facility] reports nodularities in the right upper and right middle lobes .. (CT findings from November at during hospitalization also with some nonspecific nodularities in the right lung). Pt has had to be picked up from school several times in the past few weeks due to difficulty with shortness of air. Has had h/o asthma in the past. Discussed with pulmonary nurses.. Can get him in to clinic on SaturdayJan 10 at 8 am. Also note that his peripheral eosinophilia has recurred.. Mom notes that these labs were obtained ~6 days after oral steroid was weaned. They are doing a 6 food elimination diet. Wondering if I can repeat an EGD this Saturday late morning, early afternoon? * Telephone Encounter - Kiley Sivla - 01/07/2012 12:08 PM CDT Calling for lab/xray results. Received in office. documented in this encounter Plan of Treatment Not on file documented as of this encounter Visit Diagnoses Diagnosis EE (eosinophilic esophagitis)- Primary Eosinophilic esophagitis documented in this encounter Care Teams Administrative Executive Relationship Specialty Start Date End Date Lanny Hewitt MD PCP - General Pediatrics 11/09/11 12/30/13 documented as of this encounter
--- OUTSIDE RECORDS SUMMARY | 2024-03-21 22:04 | XMS_ITS | Encounter Summary ---
Author Organization [facility] Address [address] [facility] [place] [address] Care Team Providers Care Legal Job Titles Name Role Phone Lanny Hewitt MD Primary Care Provider [phone] Reason for Visit * Auth/Cert - Closed Specialty Diagnoses / Procedures Referred By Contac t Referred To Contact Diagnoses EE (eosinophilic esophagitis) Procedures ENDOSCOPY GI UPPER WITH BIOPSY COLONOSCOPY BIOPSY Referral ID Status Reason Start Date Expiration Date Visits Re quested Visits Authorized [id number] Closed 1 1 Encounter Details Date Type Department Care Team (Late st Contact Info) Description 05/05/2012 4:30 PM VARNISH BLENDER Anesthesia Event [facility] - Endoscopy [address] [place] [address] Fito Fonseca MD [facility] [place] [address] Richa Hammond APRN-CRISTY [address] [place] [address] [place] [address] Anesthesia Record Procedure Summary Procedure Name Responsible Anesthesiologist Anesthesia Start Time Anesthesia Stop Time ESOPHAGOGASTRODUODENOSCOPY ( EGD) BIOPSY Fito Fonseca MD 05/05/12 0936 Events Date Time Event Comment 05/05/2012 0837 An Start To OR monitors applied, Time Out performed. channel marketing specialist here to distract child. Family at doorway watching IV start. Child calm and cooperative 0839 An Start Data IV started, bl ood drawn for labs. To LLD, TIVA started. EtCO2 monitoring via NC and therefore inaccurate 0842 An Induction 0850 Quick Note EGD start 0902 Quick Note Colonoscopy sta rt 0919 An Emergence 0921 an stop data Transported to PACU with pulse ox, O2 NC. VSS, NAD, on LLD. Awaiting COMPLAINTS COORDINATOR 0934 Quick Note Report given to RN. Pt still asleep, VSS, NAD 0936 An Stop Meds Name Total fentaNYL (Sublimaze) injection 0.05 mg/m L 25 mcg midazolam (VERSED) 1 mg/mL injection 2 m g propofol (DIPRIVAN) 10mg/ml 336 mg propofol (DIPRIVAN) 10 mg/mL 25 mg lidocaine (MPF) 2% injection 25 mg isolyte-S pH 7.4 infusion 300 mL * Agents Name Insp. N2O O2 * Blood No blood administrations on file. Lines, Drains, and Airways Type Details Placement Removal Peripheral IV Date: 05/05/12; Time : 0842; Orientation: Left; Placed By: Marco Antonio HENRY; Tolerance: Well 05/05/12 0842 by Richa Hammond APRN-SAMPLE WASHER 05/05/12 1015 by Kathleen Queen RN documented in this encounter Social History [...] Progress Notes * Fito Fonseca MD - 05/05/2012 9:45 AM CST ANESTHESIA POSTPROCEDURE EVALUATION Lavelle Michael is a 11 y.o. male Temp: 36.4 ??C Pulse: 62 Resp: 20 BP: 80/36 mmHg Pain Rating Score #: 0 A postop evaluation was performed on this patient with the following assessment: no apparent anesthesia complications Mental status: neurologic status has returned to expected level of consciousness. Level of consciousness: arousable General appearance: well-appearing Respiratory function: natural airway. Cardiac: stable Pain: comfortable/acceptable PONV: None Postop hydration: adequate. Patient may be released from anesthesia care. Post-Op Diagnosis Codes: * EE (eosinophilic esophagitis) [530.13] ISH BLENDER * Fito Fonseca MD - 05/05/2012 8:06 AM CST PRE-ANESTHESIA EVALUATION Procedure(s) (LRB): ENDOSCOPY GI UPPER WITH BIOPSY () COLONOSCOPY BIOPSY () Vital Signs: Temp: [37.2 ??C] Pulse: [70] Resp: [16] BP: (100)/(60) SpO2: [100 %] BMI: Estimated Body mass index is 17.50 kg/(m^2) as calculated from the following: Height as of an earlier encounter on 05/05/12: 4' 10.346 (1.482 m). Weight as of an earlier encounter on 05/05/12: 84 lb 12 oz(38.442 kg). History: Past Medical History Diagnosis Date [...] nov 2011 dx with EE/ R/o IBS Allergies: is allergic to milk protein; other; peanut-derived; and wheat. Medications: No current facility-administered medications for this visit. No current outpatient prescriptions on file. Facility-Administered Medications Ordered in Other Visits: lidocaine (LMX 4) 4% cream ADS Med, , , , , 1 Tube at 05/05/12 0743 Prescriptions prior to admission Medication Sig Dispense [...] Puffs by mouthevery 6 hours as needed. Physical Exam: Oriented x 3 Dental exam findings: OK. Airway class: I. Pulmonary exam: clear to auscultation. Cardiovascular exam positive for: S1 S2. Obesity: weight WNL for height. Plan for Anesthesia: ASA 2 Planned intraoperative anesthesia: general Planned postop destination: PACU Planned induction: Intravenous Anesthetic plan, risks and benefits discussed with mother, father and patient. Anesthesia consent: questions answered / anesthesia plan accepted Discussed anesthesia plan with: SAMPLE WASHER. ISH BLENDER documented in this encounter Plan of Treatment Not on file documented as of this encounter Visit Diagnoses Not on filedocumented in this encounter Administered Medications Inactive Administered Medications - up to 3 most recent administrations Medication Order MAR Action Action Date Dose Rate Site fentaNYL (SUBLIMAZE) injection PRN, Starting on Sat05/05/12 at 0842, Until Sat05/05/12 at 0936, Intra-op $ Given 05/05/2012 8:42 AM VARNISH BLENDER 25 mcg isolyte-S pH 7.4 infusion CONTINUOUS PRN, Starting on Sat05/05/12 at 0842, Until Sat05/05/12 at 0936, Anesthesia Intra-op $ New Bag/Syringe 05/05/2012 8:42 AM VARNISH BLENDER mL lidocaine (XYLOCAINE MPF) 2 % injection PRN, Starting on Sat05/05/12 at 0849, Until Sat05/05/12 at 0936, Anesthesia Intra-op $ Given 05/05/2012 8:49 AM VARNISH BLENDER 25 mg midazolam (VERSED) injection PRN, Starting on Sat05/05/12 at 0842, Until Sat05/05/12 at 0936, Intra-op $ Given 05/05/2012 8:42 AM VARNISH BLENDER 2 mg propofol (DIPRIVAN) 10 mg/ml injection PRN, Sedation, Starting on Sat05/05/12 at 0849, Until Sat05/05/12 at 0936, Anesthesia Intra-op $ Given 05/05/2012 8:49 AM VARNISH BLENDER 25 mg propofol (DIPRIVAN) injection CONTINUOUS PRN, Starting on Sat05/05/12 at 0844, Until Sat05/05/12 at 0936, Anesthesia Intra-op $ New Bag/Syringe 05/05/2012 8:44 AM VARNISH BLENDER 250 mcg/kg/min 57.6 mL/hr documented in this encounter Care Teams Legal Job Titles Relationship Specialty Start Date End Date Lanny Hewitt MD PCP - General Pediatrics 11/09/11 12/30/13 documented as of this encounter
--- OUTSIDE RECORDS SUMMARY | 2024-03-21 22:04 | XMS_ITS | Encounter Summary ---
Author Organization [facility] Address [address] [facility] [address] Care Team Providers Care Box Turner Name Role Phone Lanny Hewitt MD Primary Care Provider [phone] Reason for Visit * Reason Onset Date Comments Results 03/28/2012 Encounter Details Date Type Department Care Team (Late st Contact Info) Description 03/28/2012 Telephone [facility] Pediatrics - GI [address] [place] [address] Kenzie Cobb MD [address] [place] [address] Results Social History Tobacco Use Types Packs/Day [...] Telephone Encounter - Kenzie Cobb MD - 03/28/2012 5:33 PM CST Ariana/Kiley Would you schedule an EGD/colonoscopy with me in 4 weeks FYI Received labs from PCP - WBC 5.7, 19% eos. Talked to dad - seems that symptoms that were present ondiagnosis resurfaced - diarrhea, flushing, abdominal pain. Stool cultures are pending. 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 Will reassess. CARE ADMINISTRATOR * Telephone Encounter - Kenzie Cobb MD - 03/28/2012 5:22 PM CST REceived labs from PCP - WBC 5.7 with 19% eos = absolute eos count of 1083 CARE ADMINISTRATOR documented in this encounter Plan of Treatment Not on file documented as of this encounter Visit Diagnoses Not on filedocumented in this encounter Care Teams Box Turner Relationship Specialty Start Date End Date Lanny Hewitt MD PCP - General Pediatrics 11/09/11 12/30/13 documented as of this encounter
--- OUTSIDE RECORDS SUMMARY | 2024-03-21 22:04 | XMS_ITS | Encounter Summary ---
Author Organization [facility] Address [address] [facility] [place] [address] Care Team Providers Care Venetian Blind Tape Cutter Name Role Phone Lanny Hewitt MD Primary Care Provider [phone] Reason for Visit * Reason Onset Date Comments Results 01/17/2012 Encounter Details Date Type Department Care Team (Late st Contact Info) Description 01/17/2012 Telephone [facility] Pediatrics - Allergy [address] [place] [address] Kunal Goff MD [address] [place] [address] Results Social History Tobacco Use Types Packs/Day [...] encounter Miscellaneous Notes * Telephone Encounter - Faith Welch RN - 01/28/2012 2:51 PM POWERHOUSE MECHANIC APPRENTICE Mom called again for lab results from 01/09/12 RHOUSE MECHANIC APPRENTICE * Telephone Encounter - Faith Welch RN - 01/25/2012 1:54 PM POWERHOUSE MECHANIC APPRENTICE Mom called for lab results from 01/09/12. They are pending review by Dr. Goff. Attempted to reach mom at contact number. There was no answer at either number. RHOUSE MECHANIC APPRENTICE * Telephone Encounter - Sari Lorenzo RN - 01/17/2012 10:08 AM CST Labs from 01/09/12 ready for review. RHOUSE MECHANIC APPRENTICE documented in this encounter Plan of Treatment Not on file documented as of this encounter Visit Diagnoses Not on filedocumented in this encounter Care Teams Venetian Blind Tape Cutter Relationship Specialty Start Date End Date Lanny Hewitt MD PCP - General Pediatrics 11/09/11 12/30/13 documented as of this encounter
--- OUTSIDE RECORDS SUMMARY | 2024-03-21 22:04 | XMS_ITS | Encounter Summary ---
Author Organization [facility] Address [address] [place] [address] Care Team Providers Care Title Attorney Name Role Phone Lanny Hewitt MD Primary Care Provider [phone] Reason for Visit * Reason Comments Diarrhea Diarrhea and vomitin g x2 weeks, was seen at [facility] and given Flagyl for possible parasite. PCP took off flagyl and ran blood tests, still awaiting results. Denies fever. C/o abdominal pain after eating * Auth/Cert - Closed Specialty Diagnoses / Procedures Referred By Leonard gonzalez Referred To Contact Diagnoses Diarrhea [id number] Referral ID Status Reason Start Date Expiration Date Visits Re quested Visits Authorized [id number] Closed 1 1 Encounter Details Date Type Department Care Team (Late Contact Info) Description 11/09/2011 3:15 PM CDT - 11/22/2011 1:09 PM CDT Hospital Encounter [facility] - [address] [place] [address] Antonette Gann MD No Updated information Stuart Miller MD [address] [place] [id number] Gastroenterology Discharge Disposition: Home or Self Care Social [...] Sign Reading Time Taken Comments Blood Pressure 99/52 11/21/2011 11:29 PM CDT Pulse 78 11/22/2011 8:35 AM CDT Temperature 36.1 ??C (97 ??F) 11/22/2011 8:35 AM CDT Respiratory Rate 16 11/22/2011 8:35 AM CDT Oxygen Saturation 100% 11/22/2011 8:35 AM CDT Inhaled Oxygen Concentration - - Weight 37.2 kg (82 lb 0.2 oz) 11/09/2011 2:27 PM CDT Height 147.3 cm (4' 10 ) 11/09/2011 2:27 PM CDT Body Mass Index 17.14 11/09/2011 2:27 PM CDT Body Mass Index Percentile 34.59% 11/09/2011 2:2 7 PM CDT Growth Chart: [facility] (Boys, 2-2 0 Years) documented in this encounter Discharge Summaries * Ramiro Perez MD - 11/22/2011 11:23 PM CDT Images from the original note were not included. Pediatric Discharge Summary Pt. Name: Lavelle Reyes : 2000 Attending Physician : Tim Perez MD Admission Date: 11/09/2011 Discharge Date: 11/22/2011 Hospital Course (by problem): Active Hospital Problems Diagnoses Date Noted ??? Flushing 11/13/2011 No flushing episodes over night. Plan - Benadryl prn - Monitor vital signs if flushing attack recurs - Avoid Compazine ??? Eosinophilia 11/10/2011 With one month hx of watery diarrhea with significant eosinophilia on cbc. Repeat cbcs continue to have elevated eosinophilia. . Received 3 days of Mebendazole and 2 days of Albendazole(total 5 days)for concerns with visceral larva migrans. Allergy/Immunology following- CRP elevated, low IgG- 360,IgE normal, IgA nl. TTG border line high- 35, food allergy panel in process, ECHO today for concernfor Hypereosinophilic syndrome, blood cathecolamines nl, LUC nl Upper GI with path report with eosinophilic esophagitis and dudenitis, bone marrow aspiration done at time of scope for concern of neoplasia with high eosinophlis, prelim report not concerning for leukemia but high eosinophils on bone aspirate, cytogenetic panel pending, leukemia panel and bone marrow biopsy nl. See Dr perez's progress note from 11/21/11. 5 HTIAA nl. Pt showed significant clinical improvement after starting po steroids. 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 - Fu 24 hour urinary catecholamines - Fu VIP -Fu food allergy panel - Fu fecal Calprotectin in process - Follow up Trichinella IgG ab test. ??? Presumed EE 11/09/2011 11 yo male with diarrhea preceding epigastric/RUQ pain with associated nausea, emesis, and dehydration. OSH labs include normal CMP, amylase, lipase. Stool bacterial culture, Giardia, Cryptosporidia,Leukocytes all negative. Repeat stool cxs x 2 and repeat Ova parasite panel x 3 ntd. Repeat fecal Leukocytes neg , repeat shiga toxin neg. KUB normal. Pt had an Obstructive series for abdominal pain and cxr for chest pain during current hospitalization for chest pain that was normal. Cxr was essentially nl- 11/13/11. US- 11/14/11- nl, EKG for chest pain 11/14/11- nl. Isohemeagglutinins ordered by ID-ABO/RH: O Positive Anti A Cell Titer: 1:512 Anit B Cell Titer: 1:16. Upper and lower GI endoscopy on 11/16/11 showed eosinophilic esophagitis like picture on gross exam. Tocara ab neg, trichenella pending. Fecal alpha trypsin nl. TTG/IGA border line high. CT scan chest and abdomen done on 11/20/11, showed non specific densities in the rt upper lobe of lung. Catecholamines blood - nl- 11/21/11 , Cathecolamines urine- in process. Upper Gi scope showed significant eosinophilic esophagitis in esophagus and duodenum, colon essentially nl. Pt showed significant clinical improvement after starting po steroids. No flushing episodes and stools more formed in consistency over last 48 hours. Eos back to nl- 01%- 11/21/11. FI 1 L1 PDGFR gene ordered by A/I was sent by Oncology at the time of bone marrow biopsy along with gene for AML and CML. Please check media to fu on the labs at fu visit Plan:. - PO steroid taper for home steroids- Prednisone 20 mg bid for 8 days, 20 mg once a day for next week and then taper 5mg every week - Continue Nexium 10 mg bid at home ??? ADHD (attention deficit hyperactivity disorder) 11/09/2011 - Continue home Adderall and Vyvanse Resolved Hospital Problems Diagnoses Date Noted Date Resolved Discharge Diagnosis(es): Eosinophilic Esophagitis Eosinophilic gastroenteritis ADHD (attention deficit hyperactivity disorder) Periperal Eosinophilia, resolved on prednisone Flushing, uncertain etiology but also apparently resolved on prednisone Condition on Discharge: Good Consultations: Hematology/Oncology Infectious Disease Allergy/Immunology Diagnostic studies: See hospital course Procedures: See hospital course Relevant Labs: There are no new lab results to review at this time. Discharge Physical Exam (relevant findings include): General: well appearing, non-toxic Head: NC/AT Cardiovascular: regular rate and rhythm, normal S1 and S2, no murmurs Chest: breath sounds symmetrical without rales or wheezes Abdomen: soft, non-tender, non-distended and no hepatosplenomegaly or masses PENDING RESULTS: PD,GFR gene ordered, gene for AML and CML ordered at the time of bone marrow biopsy(check in media), Fu 24 hour urinary cathecholamines, Fu on VIP, Fu Trichenella ab, fu fecal Calprotectin Discharge Medications: Discharge Medication List As of 11/22/2011 12:40 PM START taking these medications Instructions Authorizing Provider * predniSONE 20 MG tablet Commonly known as: DELTASONE Take 1 Tab by mouth 2 times daily for 8 days. Take 20 mg bid for one week Selma Mccoy * predniSONE 20 MG tablet Commonly known as: DELTASONE Start taking on: 12/01/2011 Take 1 Tab by mouth once daily for 7 days. Selma Mccoy * predniSONE 5 MG tablet Commonly known as: DELTASONE Start taking on: 12/09/2011 Take 1 Tab by mouth once daily for 7 days. Take 3 tabs by mouth- 15 mg once daily for 7 days Selma Mccoy * predniSONE 10 MG tablet Commonly known as: DELTASONE Start taking on: 12/10/2011 Take 1 Tab by mouth once daily for 7 days. Take 10 mg once daily for 7 days Selma Mccoy * predniSONE 5 MG tablet Commonly known as: DELTASONE Start taking on: 12/18/2011 Take 1 Tab by mouth once daily for 7 days. Take 1 tablet by mouth - 5 mg once daily for one week and then stop prednisone taper Selma Mccoy * Notice: This list has 5 medication(s) that are the same as other medications prescribed for you. Read the directions carefully, and ask your doctor or other care provider to review them with you. CONTINUE taking these medications Instructions Authorizing Provider ADDERALL 5 MG tablet Generic drug: amphetamine-dextroamphetamine Take 5 mg by mouth every morning. albuterol HFA 108 (90 BASE) MCG/ACT inhaler Commonly known as: PROVENTIL;VENTOLIN;PROAIR Inhale 2 Puffs by mouth every 6 hours as needed. VYVANSE 40 MG capsule Generic drug: lisdexamfetamine Take 40 mg by mouth once daily. Discharge Procedure Orders PATHOLOGY SPECIMEN - [facility] COMMUNICATION TO ENDOSCOPY STAFF Standing Status: Future Standing Exp. Date: 11/14/12 Pathology orders cannot be placed in [facility] at this time - A COMPLETED PATHOLOGY requisition is sent with the specimen to the Laboratory. Endoscopy staff to complete the requisition. CALL PHYSICIAN For temperature greater than 100.4 F, if experiencing increasing or unrelieved pain, or if experiencing difficulty breathing. REGULAR DIET AT HOME ACTIVITY TOLERATED Medication instructions given to the parents for Prednisone taper: 20 mg bid for 8 days, then 20 mgonce daily next week, then 15 mg once daily for Next 7 days., then 10 mg once daily for next 7 days, then 5 mg daily for next 7 days and then stop. FOLLOW-UP APPOINTMENT HAS BEEN MADE WITH Fu appointment has been set up with Dr. Cobb on December 12 at 2:15 pm at [facility] Mino Mccoy MD Attending Physician Supervisory Note I personally interviewed the parents and patient and examined the patient and agree with the doctorabove with change made by me in blue text, i.e., the added diagnosis of eosinophilic gastroenteritis and other changes under discharge diagnoses. Ramiro Perez MD CC: Lanny Hewitt #2 [facility] [place] [id number] / [facility] [id number] documented in this encounter Discharge Instructions * Discharge Instructions* Sonam Jones RN - 11/22/2011 12:37 PM CDT If you have any questions regarding your home medications/prescriptions, please contact your primary physician. Discharge Procedure Orders PATHOLOGY SPECIMEN - [facility] COMMUNICATION TO ENDOSCOPY STAFF Standing Status: Future Standing Exp. Date: 11/14/12 Pathology orders cannot be placed in [facility] at this time - A COMPLETED PATHOLOGY requisition is sent with the specimen to the Laboratory. Endoscopy staff to complete the requisition. CALL PHYSICIAN For temperature greater than 100.4 F, if experiencing increasing or unrelieved pain, or if experiencing difficulty breathing. REGULAR DIET AT HOME ACTIVITY TOLERATED FOLLOW-UP APPOINTMENT HAS BEEN MADE WITH Fu appointment has been set up with Dr. Cobb on December 12 at 2:15 pm at [facility] Please avoid smoking and second hand smoke. The following belongings have been returned to you: Clothing: Yes, With Patient: Shirt;Pants;Footwear Jewelry: None Electronic Items: Yes, With Patient: Other (Comment) (ipad) Dentures/Retainers: None Visual Aids: Yes, Glasses: With Patient Hearing Aids: None Equipment with Patient: None Home Medications: None .WEIGHT MONITORING - If you have heart failure, weigh yourself every morning. Contact your physician if your weight increases by 3 pounds in 1 day OR 5 pounds in 1 week. WHAT TO DO IF SYMPTOMS WORSEN - Contact your physician if you have shortness of breath/difficulty breathing, or any swelling of your legs, ankles or feet. The discharge and medication instructions have been reviewed with me and my questions have been answered. I have received a copy of the discharge instructions. 11/22/2011 * Discharge Instructions* Document, Scanned - 11/23/2011 8:21 AM CDT documented in this encounter Medications at Time of Discharge Medication Sig Dispensed Refills Start Date End Date albuterol HFA (PROVENTIL;VENTOLIN;AZ OAIR) 108 (90 BASE) MCG/ACT inhaler Inhale [...] 7 Tab 0 12/10/2011 12/17/2011 predniSONE (DELTASONE) 20 MG tablet Take 1 Tab by mouth 2 times daily for 8 days. Take 20 mg bid for one week 16 Tab 0 11/22/2011 11/30/2011 predniSONE (DELTASONE) 20 MG tablet Take 1 Tab by mouth once daily for 7 days. 7 Tab 0 12/01/2011 12/08/2011 predniSONE (DELTASONE) 5 MG tablet Take 1 [...] as of this encounter Progress Notes * Sonam Jones RN - 11/22/2011 12:42 PM CDT Prednisone weaning schedule: Take 20 mg twice daily x 8 days Take 20mg daily x 7days Take 15mg daily x 7days Take 10mg daily x 7days Take 5mg daily x 7days Per Dr. Selma Mccoy * Ramiro Perez MD - 11/21/2011 2:34 PM CDT Pediatric Attending Daily Progress Note 11/21/2011 2:34 PM Hospital Day: 12 I have interviewed the patient/family and examined this patient. I have reviewed and confirmed/revised the findings of the resident. My findings (todd elements and supplemental information) are as follows: Clinical Course Patient stable overnight after starting prednisone 20 milligrams p.o. b.i.d. No further episodes since starting prednisone of flushing or rash dnd he had his first formed bowel movement in a long time. Echocardiogram ordered and done with results pending and gene test for hypereosinophilic syndrometo be sent. Consider upper GI series of vomiting recurs but plan possible discharge tomorrow if he r emains stable overnight. Today's AEC has dropped dramatically to 62 from 5080 yesterday before starting prednisone. Exam: BP 101/59 Pulse 84 Temp 97 ??F Resp 20 Wt 37.2 kg (82 lb 0.2 oz) BMI 17.14 kg/m2 Skin: No cutaneous stigmata to suggest a chronic disease or specific micronutrient deficiency. No rash HENT: MMM; anicteric sclerae. Oral pharynx is clear. Neck: No palpable thyromegaly or cervical lymphadenopathy. Chest: Clear to auscultation bilaterally. Cor: Regular rate and rhythm. Abdomen: Soft and non-distended. There are no masses or organomegaly. There is no localized tenderness to deep palpation. Extremities: No edema, clubbing or cyanosis. Neuro: Nonfocal. Lab/Other Information Recent Results (from the past 24 hour(s)) CBC W AUTO DIFFERENTIAL Collection Time 11/21/11 4:40 AM Component Value Range WBC 6.2 4.5-14.5 (x10^9/L) RBC 4.61 4.00-5.20 (x10^12/L) Hgb 13.8 11.5-15.5 (g/dL) HCT 39.1 35.0-45.0 (%) MCV 84.8 77.0-95.0 (fl) MCH 29.9 25.0-33.0 (pg) MCHC 35.3 31.0-37.0 (gm/dL) RDW-CV 12.8 11.5-14.0 (%) MPV 10.4 (*) 6.0-9.5 (fl) Hemo Reflex Status Manual Diff to follow Plt Ct 306 100-400 (x10^9/L) DIFFERENTIAL MANUAL Collection Time 11/21/11 4:40 AM Component Value Range WBC Auto 6.2 Neutro Manual 70 (*) 24-66 (%) Lymph Manual 27 22-61 (%) [place] Manual 2 (*) 3-15 (%) Eos Manual 1 0-10 (%) Cells Counted 100 Plt Est Normal WBC Morph Normal Poikilocytosis Slight Active Hospital Problems Diagnoses Date Noted ??? Flushing 11/13/2011 Pt has had couple of episodes of cutaneous flushing with belly and chest pain. Vitals remain stableduring flushing attacks that last from few seconds to a minute. Pt has watery diarrhea for 4 weeks,eosinophilia and low IgG levels. EKG nl. One flushing episode yesterday evening that resolved benadryl Plan - Benadryl prn - Monitor vital signs during attack - Fu fecal alpha trypsin , low igg could be due to loss of protein in feces - Fu labs LUC - Avoid Compazine ??? Eosinophilia 11/10/2011 With one month hx of watery diarrhea with significant eosinophilia on cbc. Repeat cbc continue to have elevated eosinophilia. Immunoglobulins panel with low IGG- 360. Received 3 days of Mebendazole and 2 days of Albendazole(total 5 days). Allergy/Immunology following- CRP elevated, low IgG, IgE normal Upper GI with path report with eosinophilic esophagitis and dudenitis, bone marrow aspiration done at time of scope for concern of neoplasia with high eosinophlis, prelim report not concerning for leukemia but high eosinophils on bone aspirate, cytogenetic panel pending, leukemia panel and bone marrow biopsy in process Plan - Fu fecal Calprotectin in process - Follow up Trichinella IgG ab test. - Fu ??? Presumed EE 11/09/2011 11 yo male with diarrhea preceding epigastric/RUQ pain with associated nausea, emesis, and dehydration. OSH labs include normal CMP, amylase, lipase. Stool bacterial culture, giardia, cryptosporidia,leukocytes all negative. KUB normal. Pt had an obstructive series for abdominal pain and cxr for chest pain during current hospitalization for chest pain that was normal. Cxr was essentially nl- 11/13/11. US- 11/14/11- nl, EKG for chest pain 11/14/11- nl. . Repeat fecal leukocytes negative. Repeat stool cx neg for Shiga toxin. O and P sent on 11/12 and 11/14 neg, second stool cx sent on 11/12 ntd, continues to have high eosinophilia on cbc, Isohemeagglutinins ordered by ID-ABO/RH: O Positive Anti A Cell Titer: 1:512 Anit B Cell Titer: 1:16. Upper and lower GI endoscopy on 11/16/11 showed eosinophilic esophagitis like picture on gross exam, path report in process. Tocara ab neg, trichenella pending. Fecalalpha trypsin pending. TTG.IGA border line high. Ct scan chest and abdomen done on 11/20/11, showed non specific densities in the rt upper lobe of lung.Catecholamines blood - nl- 11/21/11 , Cathecolamines urine- in process. Pt showed significant clinical improvement after starting po steroids. No flushing episodes and stools more formed in consistency over last 24 hours. Plan: - Continue po steroids- 20 mg prednisone q day - Flovent po bid -Flagyl D/Reg - Nexium IV - Regular diet, bowel rest - Zofran PRN - Prn Tylenol for mild pain and Prn Oxycodon for moderate pain - Benadryl prn for flushing attacks and belly pain ??? ADHD (attention deficit hyperactivity disorder) 11/09/2011 - Continue home Adderall and Vyvanse See resident's note of 11/21/2011 for further details.I discussed above with the parents. Ramiro Perez MD [phone] * Selma Mccoy MD - 11/21/2011 2:12 PM CDT Pediatric Resident Daily Progress Note Lavelle Reyes 11/21/2011 2:12 PM Hospital Day: 12 Clinical Course Pt showed significant clinical improvement after starting po steroids. No flushing episodes and stools more formed in consistency. Objective Vitals BP: 101/59 mmHg (11/21/11 1133), Temp: 97 ??F (11/21/11 1133), Pulse: 84 (11/21/11 1133), Resp: 20 (11/21/11 113), SpO2: 100 % (11/21/11 113), Height: 147.3 cm (4' 10 ) (11/09/11 142), Weight: 37.2 kg (82 lb 0.2 oz) (11/09/11 1427) Temp (24hrs), Av.6 ??F, Min:96.8 ??F, Max:98.8 ??F 11/19 1500 - 11/20 1459 In: 604 [P.O.:600; I.V.:4] Out: 495 [Urine:495] Exam: General: well appearing, non-toxic Head: NC/AT Cardiovascular: regular rate and rhythm, normal S1 and S2, no murmurs Chest: breath sounds symmetrical without rales or wheezes Abdomen: soft, non-tender, non-distended and no hepatosplenomegaly or masses Lab/Other Information Results for LAVELLE REYES ( ) as of 11/21/2011 14:16 Ref. Range 11/20/2011 07:39 11/21/2011 04:40 WBC Latest Range: 4.5-14.5 x10^9/L 12.7 6.2 WBC Auto No range found 12.7 6.2 RBC Latest Range: 4.00-5.20 x10^12/L 4.77 4.61 Hgb Latest Range: 11.5-15.5 g/dL 14.1 13.8 Hct Latest Range: 35.0-45.0 % 40.6 39.1 MCV Latest Range: 77.0-95.0 fl 85.1 84.8 MCH Latest Range: 25.0-33.0 pg 29.6 29.9 MCHC Latest Range: 31.0-37.0 gm/dL 34.[address] Latest Range: 100-400 x10^9/L 297 306 RDW-CV Latest Range: 11.5-14.0 % 12.9 12.8 MPV Latest Range: 6.0-9.5 fl 11.1 (H) 10.4 (H) Hemo Reflex Status No range found Manual Diff to follow Manual Diff to follow Neutro Manual Latest Range: 24-66 % 27 70 (H) Lymph Manual Latest Range: 22-61 % 26 27 [place] Manual Latest Range: 3-15 % 7 2 (L) Eos Manual Latest Range: 0-10 % 40 (H) 1 WBC Morph No range found Normal Normal Plt Est No range found Normal Cells Counted No range found 100 100 Anisocytosis No range found Slight Poikilocytosis No range found Slight Slight Ovalocytes No range found Rare Active Hospital Problems Diagnoses Date Noted ??? Flushing 11/13/2011 No flushing episodes over night. Plan - Benadryl prn - Monitor vital signs if flushing attack recurs - Avoid Compazine ??? Eosinophilia 11/10/2011 With one month hx of watery diarrhea with significant eosinophilia on cbc. Repeat cbcs continue to have elevated eosinophilia. . Received 3 days of Mebendazole and 2 days of Albendazole(total 5 days)for concerns with visceral larva migrans. Allergy/Immunology following- CRP elevated, low IgG- 360,IgE normal, IgA nl. 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 Could not get holdof genetic counselor , will try again - Fu Catecholamines urine - Fu 5HTIAA - Fu VIP -Fu food allergy panel - Fu bone marrow biopsy labs - Fu fecal Calprotectin in process - Follow up Trichinella IgG ab test. ??? Presumed EE 11/09/2011 11 yo male with diarrhea preceding epigastric/RUQ pain with associated nausea, emesis, and dehydration. OSH labs include normal CMP, amylase, lipase. Stool bacterial culture, giardia, cryptosporidia,leukocytes all negative. KUB normal. Pt had an obstructive series for abdominal pain and cxr for chest pain during current hospitalization for chest pain that was normal. Cxr was essentially nl- 11/13/11. US- 11/14/11- nl, EKG for chest pain 11/14/11- nl. . Repeat fecal leukocytes negative. Repeat stool cx neg for Shiga toxin. O and P sent on 11/12 and 11/14 neg, second stool cx sent on 11/12 ntd, continues to have high eosinophilia on cbc, Isohemeagglutinins ordered by ID-ABO/RH: O Positive Anti A Cell Titer: 1:512 Anit B Cell Titer: 1:16. Upper and lower GI endoscopy on 11/16/11 showed eosinophilic esophagitis like picture on gross exam, path report in process. Tocara ab neg, trichenella pending. Fecalalpha trypsin pending. TTG.IGA border line high. Ct scan chest and abdomen done on 11/20/11, showed non specific densities in the rt upper lobe of lung.Catecholamines blood - nl- 11/21/11 , Cathecolamines urine- in process. Pt showed significant clinical improvement after starting po steroids. No flushing episodes and stools more formed in consistency over last 24 hours. Eos back to nl- 1 today Plan: - Continue po steroids- 20 mg prednisone q day - D/c Flovent po bid - Nexium IV - Regular diet, bowel rest - Zofran PRN - Prn Tylenol for mild pain and Prn Oxycodon for moderate pain - Benadryl prn for flushing attacks and belly pain ??? ADHD (attention deficit hyperactivity disorder) 11/09/2011 - Continue home Adderall and Vyvanse Selma Mccoy MD [phone] * Kunal Goff MD - 11/21/2011 12:36 PM CDT Allergy/Immunology Consult Note Date of Admission: 11/09/2011 Chief Complaint/History of Present Illness: 11 year old with Hx of diarrhea and Hypereosinophilia Last 24 hr: no new events PMHx: Patient Active Problem List Diagnoses Date Noted ??? Flushing 11/13/2011 Pt has had couple of episodes of cutaneous flushing with belly and chest pain. Vitals remain stableduring flushing attacks that last from few seconds to a minute. Pt has watery diarrhea for 4 weeks,eosinophilia and low IgG levels. EKG nl. One flushing episode yesterday evening that resolved benadryl Plan - Benadryl prn - Monitor vital signs during attack - Fu fecal alpha trypsin , low igg could be due to loss of protein in feces - Fu labs LUC - Avoid Compazine ??? Eosinophilia 11/10/2011 With one month hx of watery diarrhea with significant eosinophilia on cbc. Repeat cbc continue to have elevated eosinophilia. Immunoglobulins panel with low IGG- 360. Received 3 days of Mebendazole and two days of Albendazole Diagnosis; Possible visceral larva migrans vs allergies. Alpha 1 antitrypsin in feces nl, urine smear for eosinophils- neg Plan - upper Gi with gross eosinophilic esophagitis look, fu path report, bone marrow aspiration done attime of scope for concern of neoplasia with high eosinophlis, prelim report not concerning for leukemia but high eosinophils in on bone aspirate, cytogenetic panel pending -Flagyl 250 mg po TID ??? Presumed EE 11/09/2011 11 yo male with diarrhea preceding epigastric/RUQ pain with associated nausea, emesis, and dehydration. OSH labs include normal CMP, amylase, lipase. Stool bacterial culture, giardia, cryptosporidia,leukocytes all negative. KUB normal. Pt had an obstructive series for abdominal pain and cxr for chest pain during current hospitalization for chest pain that was normal. Cxr was essentially nl- 11/13/11. US- 11/14/11- nl, EKG for chest pain 11/14/11- nl. . Repeat fecal leukocytes negative. Repeat stool cx neg for Shiga toxin. O and P sent on 11/12 and 11/14 neg, second stool cx sent on 11/12 ntd, continues to have high eosinophilia on cbc, Isohemeagglutinins ordered by ID-ABO/RH: O Positive Anti A Cell Titer: 1:512 Anit B Cell Titer: 1:16. Upper and lower GI endoscopy on 11/16/11 showed eosinophilic esophagitis like picture on gross exam, path report in process. Tocara ab neg, trichenella pending. Fecalalpha trypsin pending. TTG.IGA border line high. Ct scan chest and abdomen done on 11/20/11, showed non specific densities in the rt upper lobe of lung Pt Pt had 5 watery stools in last 24 hours and 3 flushing episodes and vomited twice Plan: - Fu fecal fecal Calprotectin in process - Follow up trichinella IgG ab test. - Levsin - 0.125 mg q4 prn - flovent po bid -Flagyl DCed - Nexium IV - Regular diet, bowel rest - Zofran PRN - Prn Tylenol for mild pain and Prn Oxycodon for moderate pain - Benadryl prn for flushing attacks and belly pain - FU 5 HIAA - FU catecholamines blood/ urine - Will consider po steroids once EE is confirmed on biopsy report ??? ADHD (attention deficit hyperactivity disorder) 11/09/2011 - Continue home Adderall and Vyvanse Outpatient Medications: Prescriptions prior to admission Medication Sig Dispense Refill ??? albuterol HFA (PROVENTIL;VENTOLIN;PROAIR) 108 (90 BASE) MCG/ACT inhaler Inhale 2 Puffs by mouthevery 6 hours as needed. ??? lisdexamfetamine (VYVANSE) 40 MG capsule Take 40 mg by mouth once daily. ??? amphetamine-dextroamphetamine (ADDERALL) 5 MG tablet Take 5 mg by mouth every morning. Current Facility-Administered Medications Medication Dose Route Frequency Provider Last Rate Last Dose ??? predniSONE (DELTASONE) tablet 20 mg 20 mg Oral BID Nathan Hester MD 20 mg at 11/21/11 0904 ??? esomeprazole (NexIUM) injection 10 mg 10 mg Intravenous BID Selma Mccoy MD 10 mg at 11/21/11 0905 ??? ioversol (OPTIRAY 320) 68 % injection Intravenous Contrast - Once Selma Mccoy MD 82 mL at 11/19/11 1552 ??? albuterol (PROVENTIL;VENTOLIN) (5 MG/ML) 0.5% nebulizer solution 5 mg 5 mg Inhalation 4X/day PRN Roshan Claire MD 5 mg at 11/19/111 ??? 0.9% NaCl injection 2-10 mL 2-10 mL Intracatheter PRN Nathan Hseter MD 10 mL at 11/20/112328 ??? 0.9 % nacl IV BOLUS 10-50 mL 10-50 mL Intravenous PRN Nathan Hester MD ??? ondansetron (ZOFRAN) tablet 4 mg 4 mg Oral q8h PRN Janay Marr MD 4 mg at 11/18/11 1736 ??? prochlorperazine (COMPAZINE) tablet 2.5 mg 2.5 mg Oral q8h PRN Zaira Nails MD 2.5 mg at 11/20/11 1651 ??? ondansetron (ZOFRAN) injection 4 mg 4 mg Intravenous q6h PRN Zaira Nails MD 4 mg at 11/19/11 1649 ??? morphine injection 1 mg 1 mg Intravenous post-OP multiple Itzel Virk MD ??? hyoscyamine (LEVSIN) tablet 0.125 mg 0.125 mg Oral q4h PRN Isatu Madrid MD ??? acetaminophen (TYLENOL) tablet 325 mg 325 mg Oral q4h PRN Ezekiel Doshi MD 325 mg at 959 ??? diphenhydrAMINE (BENADRYL) injection 25 mg 25 mg Intravenous q6h PRN Myah Aj MD 25 mgat 11/18/112049 ??? morphine injection 2 mg 2 mg Intravenous Once PRN Myah Aj MD ??? amphetamine-dextroamphetamine (ADDERALL) tablet 5 mg 5 mg Oral q24h Ezekiel Doshi MD 5 mg at 11/19/11 1648 ??? lisdexamfetamine (VYVANSE) capsule 40 mg 40 mg Oral QDAY Ezekiel Doshi MD 40 mg at 11/21/11 0905 Medication Allergies: Allergies Allergen Reactions ??? Eggs Other Egg yolks--cause migraines OK with egg whites and can have small amounts yolk if cooked in foods PE: Vitals: 11/20/11201111/20/11232311/21/11 0902 11/21/11 1133 BP: 98/55 94/55 89/51 101/59 Pulse: 80 62 80 84 Temp: 96.8 ??F 97.2 ??F 98.2 ??F 97 ??F Resp: 22 20 18 20 Weight: SpO2: 100% 100% Gen: NAD Eyes: PERRL, EOMI, conjunctiva clear B with B allergic shiners. ENT: TM-clear B, nares - patent with pale, boggy nasal mucosa, Neck: Supple, FROM. Thyroid: Normal size, no palpable goiter. CV: RRR s m Resp: CTAB, no wheezes ABD: soft, NTND, no HSM Extr: no c/c/e Skin: no lesions/rashes Lymphatic: Palpation of nodes in neck/axillae show no LAD Psych: Appropriate, A&O x3. Data Review: Assessment and Recommendations: 1-abdominal pain, diarrhea and hypereosinophilia -we recommend complete work up -please send for FIP1 L1 PDGFR alpha -Echocardiogram as a part of workup to hypereosinophilic syndrome. -please send for IL5 and tryptase later if peripheral eosinophilia recurs as prednisone dose is tapered down. -waiting for the official reading of the bone marrow and endoscopy results. Thank you for allowing me to participate in the care of your patient. Rashi Johnston MD 11/21/2011 12:37 PM Attending Physician Supervisory Note I personally interviewed and examined the patient and agree with the doctor above. Kunal Goff MD * Farhana Perez MD - 11/21/2011 11:16 AM CDT Flow cytometry of 11/15 marrow: - NL trilineage hematopoiesis. - notable eosinophilia - no evidence of lymphoma or acute leukemia. Chromosome analysis is NL Have requested cytogenetics lab to FISH for: - the characteristic genetic translocations, microdeletions that result in fusion with -PDGFRA, to rule out chronic eosinophilic leukemia (JANIA). - inv(16)(16q22), to rule-out M4Eo subtype of AML, and t(5;14) to rule-out ALL w/ hypereosinophilia(very unlikely, given NL flow). * Ramiro Perez MD - 11/20/2011 2:15 PM CDT Pediatric Attending Daily Progress Note 11/20/2011 02:15 PM Hospital Day: 11 I have interviewed the patient/family and examined this patient. I have reviewed and confirmed/revised the findings of the resident. My findings (todd elements and supplemental information) are as follows: Clinical Course Lavelle has continued to have flushing episodes with a non-pruritic rash the appears and disappears with the flushing episode which is often associated with nausea with occasional vomiting and the non-bloody diarrhea has returned. Final BM results pending but I reviewed the EGD bx's with the pathologist this am and the preliminary findings include intense eosinophilic infiltrate in the duodenum consistent with the eosinophilicduodenitis and intense eosinophilic infiltrates in the middle 3rd and distal 3rd of the esophagus consistent with the eosinophilic esophagitis. There was no such intensity eosinophilic infiltrate in the biopsies of the colon or the stomach, although there appeared to be some mild gastric eosinophilia. CT scan of the chest and abdomen were unrevealing except for some nonspecific lung lesions perhaps representing eosinophilic lesions as well. No carcinoid or other tumors were visualized. Exam: BP 89/44 Pulse 64 Temp 96.8 ??F Resp 20 Wt 37.2 kg (82 lb 0.2 oz) BMI 17.14 kg/m2 Skin: No cutaneous stigmata to suggest a chronic disease or specific micronutrient deficiency. HENT: MMM; anicteric sclerae. Oral pharynx is clear. Neck: No palpable thyromegaly or cervical lymphadenopathy. Chest: Clear to auscultation bilaterally. Cor: Regular rate and rhythm. Abdomen: Soft and non-distended. There are no masses or organomegaly. There is no localized tenderness to deep palpation. Extremities: No edema, clubbing or cyanosis. Neuro: Nonfocal. Lab/Other Information Component Name 11/20/11 0739 11/19/11 0520 11/18/11 0540 WBC 12.7 13.9 11.6 HGB 14.1 14.0 14.2 HCT 40.6 39.8 40.7 PLTCOUNT 297 284 267 Component Name 11/20/11 0739 11/19/11 0520 11/18/11 0540 11/17/11 0555 11/16/11 1500 11/15/11 0451 11/09/11 1902 BANDMANPCT -- 1 -- 4 -- -- 2 SEGMANPCT -- -- -- -- -- -- -- LYMPHMANPCT 26 40 25 -- -- -- -- EOSMANPCT 40* 26* 38* -- -- -- -- BASOMANPCT -- -- -- -- -- 1 -- ATYPLYMPHMAN -- 1 4 -- 1 -- -- METAMANPCT -- -- -- -- -- -- -- MYELOMANPCT -- -- -- -- -- -- -- PLASMAMANPCT -- -- -- -- -- -- -- IMMATUREPCT -- -- -- -- -- -- -- OTHERMANPCT -- -- -- -- -- -- -- NRBC -- -- -- -- -- -- -- WBCCORRECT -- -- -- -- -- -- -- RBCMORPH -- Normal Normal -- Normal -- -- WBCMORPH Normal Normal Normal -- -- -- -- Active Hospital Problems Diagnoses Date Noted ??? Flushing 11/13/2011 Pt has had couple of episodes of cutaneous flushing with belly and chest pain. Vitals remain stableduring flushing attacks that last from few seconds to a minute. Pt has watery diarrhea for 4 weeks,eosinophilia and low IgG levels. EKG nl. One flushing episode yesterday evening that resolved benadryl Plan - Benadryl prn - Monitor vital signs during attack - Fu fecal alpha trypsin , low igg could be due to loss of protein in feces - Fu labs LUC - Avoid Compazine ??? Eosinophilia 11/10/2011 With one month hx of watery diarrhea with significant eosinophilia on cbc. Repeat cbc continue to have elevated eosinophilia. Immunoglobulins panel with low IGG- 360. Received 3 days of Mebendazole and two days of Albendazole Diagnosis; Possible visceral larva migrans vs allergies. Alpha 1 antitrypsin in feces nl, urine smear for eosinophils- neg Plan - upper Gi with gross eosinophilic esophagitis look, fu path report, bone marrow aspiration done attime of scope for concern of neoplasia with high eosinophlis, prelim report not concerning for leukemia but high eosinophils in on bone aspirate, cytogenetic panel pending -Flagyl 250 mg po TID ??? Presumed EE 11/09/2011 11 yo male with diarrhea preceding epigastric/RUQ pain with associated nausea, emesis, and dehydration. OSH labs include normal CMP, amylase, lipase. Stool bacterial culture, giardia, cryptosporidia,leukocytes all negative. KUB normal. Pt had an obstructive series for abdominal pain and cxr for chest pain during current hospitalization for chest pain that was normal. Cxr was essentially nl- 11/13/11. US- 11/14/11- nl, EKG for chest pain 11/14/11- nl. . Repeat fecal leukocytes negative. Repeat stool cx neg for Shiga toxin. O and P sent on 11/12 and 11/14 neg, second stool cx sent on 11/12 ntd, continues to have high eosinophilia on cbc, Isohemeagglutinins ordered by ID-ABO/RH: O Positive Anti A Cell Titer: 1:512 Anit B Cell Titer: 1:16. Upper and lower GI endoscopy on 11/16/11 showed eosinophilic esophagitis like picture on gross exam, path report in process. Tocara ab neg, trichenella pending. Fecalalpha trypsin pending. TTG.IGA border line high. Ct scan chest and abdomen done on 11/20/11, showed non specific densities in the rt upper lobe of lung Pt Pt had 5 watery stools in last 24 hours and 3 flushing episodes and vomited twice Plan: - Fu fecal fecal Calprotectin in process - Follow up trichinella IgG ab test. - Levsin - 0.125 mg q4 prn - flovent po bid -Flagyl DCed - Nexium IV - Regular diet, bowel rest - Zofran PRN - Prn Tylenol for mild pain and Prn Oxycodon for moderate pain - Benadryl prn for flushing attacks and belly pain - FU 5 HIAA - FU catecholamines blood/ urine - Will consider po steroids once EE is confirmed on biopsy report ??? ADHD (attention deficit hyperactivity disorder) 11/09/2011 - Continue home Adderall and Vyvanse Etiology of flushing episodes with abdominal pain remains unclear. I spoke at length the parents regarding the findings on biopsies and suggested starting prednisone 20 milligrams p.o. B.i.d. And stopping the Flovent . Will also draw a VIP and food allergy panel prior to starting prednisone. Consider upper GI series. I answered the parents questions and discussed the risks and benefits of prednisone administration short and long-term and agreed with the plan as outlined above. See resident's note of 11/20/2011 for further details. Ramiro Perez MD [phone] * Selma Mccoy MD - 11/20/2011 11:22 AM CDT Pediatric Resident Daily Progress Note Lavelle Reyes 11/20/2011 11:22 AM Hospital Day: 11 Clinical Course Pt had two flushing episodes overnight and was nauseous, pt was given Zofran and Compazine. Pt's father reported Zofran helped with the nausea but not with flushing Objective Vitals BP: 89/44 mmHg (11/20/11 0800), Temp: 96.8 ??F (11/20/11 0800), Pulse: 64 (11/20/11 0800), Resp: 20 (11/20/11 0800), SpO2: 95 % (11/19/11 2344), Height: 147.3 cm (4' 10 ) (11/09/11 1427), Weight: 37.2 kg (82 lb 0.2 oz) (11/09/11 1427) Temp (24hrs), Av.6 ??F, Min:96.8 ??F, Max:98.2 ??F 11/18 0700 - 11/19 0659 In: 1575.3 [P.O.:1000; I.V.:575.3] Out: 350 [Urine:350] Exam: General: well appearing, non-toxic Head: NC/AT Cardiovascular: regular rate and rhythm, normal S1 and S2, no murmurs Chest: breath sounds symmetrical without rales or wheezes Abdomen: soft, non-tender, non-distended and no hepatosplenomegaly or masses Lab/Other Information: Pathology report from upper lower Gi in process, bone marrow biopsy and cytogenetic panel and leukemia panel in process Results for LAVELLE REYES ( ) as of 11/20/2011 11:24 Ref. Range 11/20/2011 07:39 WBC Latest Range: 4.5-14.5 x10^9/L 12.7 WBC Auto No range found 12.7 RBC Latest Range: 4.00-5.20 x10^12/L 4.77 Hgb Latest Range: 11.5-15.5 g/dL 14.1 Hct Latest Range: 35.0-45.0 % 40.6 MCV Latest Range: 77.0-95.0 fl 85.1 MCH Latest Range: 25.0-33.0 pg 29.6 MCHC Latest Range: 31.0-37.0 gm/dL 34.[address] Latest Range: 100-400 x10^9/L 297 RDW-CV Latest Range: 11.5-14.0 % 12.9 MPV Latest Range: 6.0-9.5 fl 11.1 (H) Hemo Reflex Status No range found Manual Diff to follow Neutro Manual Latest Range: 24-66 % 27 Lymph Manual Latest Range: 22-61 % 26 [place] Manual Latest Range: 3-15 % 7 Eos Manual Latest Range: 0-10 % 40 (H) WBC Morph No range found Normal Cells Counted No range found 100 Anisocytosis No range found Slight Poikilocytosis No range found Slight Ovalocytes No range found Rare Active Hospital Problems Diagnoses Date Noted ??? Flushing 11/13/2011 Pt has had couple of episodes of cutaneous flushing with belly and chest pain. Vitals remain stableduring flushing attacks that last from few seconds to a minute. Pt has watery diarrhea for 4 weeks,eosinophilia and low IgG levels. EKG nl. One flushing episode yesterday evening that resolved benadryl Plan - Benadryl prn - Monitor vital signs during attack - Fu fecal alpha trypsin , low igg could be due to loss of protein in feces - Fu labs LUC - Avoid Compazine ??? Eosinophilia 11/10/2011 With one month hx of watery diarrhea with significant eosinophilia on cbc. Repeat cbc continue to have elevated eosinophilia. Immunoglobulins panel with low IGG- 360. Received 3 days of Mebendazole and two days of Albendazole Diagnosis; Possible visceral larva migrans vs allergies. Alpha 1 antitrypsin in feces nl, urine smear for eosinophils- neg Plan - upper Gi with gross eosinophilic esophagitis look, fu path report, bone marrow aspiration done attime of scope for concern of neoplasia with high eosinophlis, prelim report not concerning for leukemia but high eosinophils in on bone aspirate, cytogenetic panel pending -Flagyl 250 mg po TID ??? Presumed EE 11/09/2011 11 yo male with diarrhea preceding epigastric/RUQ pain with associated nausea, emesis, and dehydration. OSH labs include normal CMP, amylase, lipase. Stool bacterial culture, giardia, cryptosporidia,leukocytes all negative. KUB normal. Pt had an obstructive series for abdominal pain and cxr for chest pain during current hospitalization for chest pain that was normal. Cxr was essentially nl- 11/13/11. US- 11/14/11- nl, EKG for chest pain 11/14/11- nl. . Repeat fecal leukocytes negative. Repeat stool cx neg for Shiga toxin. O and P sent on 11/12 and 11/14 neg, second stool cx sent on 11/12 ntd, continues to have high eosinophilia on cbc, Isohemeagglutinins ordered by ID-ABO/RH: O Positive Anti A Cell Titer: 1:512 Anit B Cell Titer: 1:16. Upper and lower GI endoscopy on 11/16/11 showed eosinophilic esophagitis like picture on gross exam, path report in process. Tocara ab neg, trichenella pending. Fecalalpha trypsin pending. TTG.IGA border line high. Ct scan chest and abdomen done on 11/20/11, showed non specific densities in the rt upper lobe of lung Pt Pt had 5 watery stools in last 24 hours and 3 flushing episodes and vomited twice Plan: - Fu fecal fecal Calprotectin in process - Follow up trichinella IgG ab test. - Levsin - 0.125 mg q4 prn - flovent po bid -Flagyl DCed - Nexium IV - Regular diet, bowel rest - Zofran PRN - Prn Tylenol for mild pain and Prn Oxycodon for moderate pain - Benadryl prn for flushing attacks and belly pain - FU 5 HIAA - FU catecholamines blood/ urine - Will consider po steroids once EE is confirmed on biopsy report ??? ADHD (attention deficit hyperactivity disorder) 11/09/2011 - Continue home Adderall and Vyvanse Selma Z Nadine, MD [phone] * Jacqueline Rosado RN - 11/19/2011 8:42 PM CDT Per dad, patient with another flushing episode around 2014. On assessment, ears are red and warm. * Lea Narvaez RN - 11/19/2011 7:06 PM CDT Patient having a flushing episodes, cheeks and ears pink, and somewhat anxious. No emesis at this time. * Selma Mccoy MD - 11/19/2011 6:23 PM CDT Pediatric Resident Daily Progress Note Lavelle Reyes 11/19/2011 6:23 PM Hospital Day: 10 Clinical Course Pt continue to have diarrhea, vomiting off and on and cutaneous flushing episodes daily Objective Vitals BP: 97/60 mmHg (11/19/11 1415), Temp: 98.2 ??F (11/19/11 1415), Pulse: 88 (11/19/11 1415), Resp: 16 (11/19/11 1415), SpO2: 96 % (11/19/11 0423), Height: 147.3 cm (4' 10 ) (11/09/11 1427), Weight: 37.2 kg (82 lb 0.2 oz) (11/09/11 1427) Temp (24hrs), Av.5 ??F, Min:96.8 ??F, Max:98.2 ??F 11/17 1500 - 11/18 1459 In: 1732.3 [P.O.:615; I.V.:1117.3] Out: 300 [Urine:300] Exam: General: well appearing, non-toxic Head: NC/AT Cardiovascular: regular rate and rhythm, normal S1 and S2, no murmurs Chest: breath sounds symmetrical without rales or wheezes Abdomen: soft, non-tender, non-distended and no hepatosplenomegaly or masses Lab/Other Information Results for LAVELLE REYES ( ) as of 11/19/2011 18:24 Ref. Range 11/19/2011 05:20 WBC Latest Range: 4.5-14.5 x10^9/L 13.9 WBC Auto No range found 13.9 RBC Latest Range: 4.00-5.20 x10^12/L 4.68 Hgb Latest Range: 11.5-15.5 g/dL 14.0 Hct Latest Range: 35.0-45.0 % 39.8 MCV Latest Range: 77.0-95.0 fl 85.0 MCH Latest Range: 25.0-33.0 pg 29.9 MCHC Latest Range: 31.0-37.0 gm/dL 35.[address] Latest Range: 100-400 x10^9/L 284 RDW-CV Latest Range: 11.5-14.0 % 13.0 MPV Latest Range: 6.0-9.5 fl 11.2 (H) Hemo Reflex Status No range found Manual Diff to follow Neutro Manual Latest Range: 24-66 % 30 Band Manual No range found 1 Lymph Manual Latest Range: 22-61 % 40 [place] Manual Latest Range: 3-15 % 2 (L) Eos Manual Latest Range: 0-10 % 26 (H) Atyp Lymph Manual No range found 1 WBC Morph No range found Normal RBC Morph No range found Normal Cells Counted No range found 100 Active Hospital Problems Diagnoses Date Noted ??? Flushing 11/13/2011 Pt has had couple of episodes of cutaneous flushing with belly and chest pain. Vitals remain stableduring flushing attacks that last from few seconds to a minute. Pt has watery diarrhea for 4 weeks,eosinophilia and low IgG levels. EKG nl. One flushing episode yesterday evening that resolved benadryl Plan - Benadryl prn - Monitor vital signs during attack - Fu fecal alpha trypsin , low igg could be due to loss of protein in feces - Fu labs LUC ??? Eosinophilia 11/10/2011 With one month hx of watery diarrhea with significant eosinophilia on cbc. Repeat cbc continue to have elevated eosinophilia. Immunoglobulins panel with low IGG- 360. Received 3 days of Mebendazole and two days of Albendazole Diagnosis; Possible visceral larva migrans vs allergies. Alpha 1 antitrypsin in feces nl, urine smear for eosinophils- neg Plan - upper Gi with gross eosinophilic esophagitis look, fu path report, bone marrow aspiration done attime of scope for concern of neoplasia with high eosinophlis, prelim report not concerning for leukemia but high eosinophils in on bone aspirate, cytogenetic panel pending -Flagyl 250 mg po TID ??? Presumed EE 11/09/2011 11 yo male with diarrhea preceding epigastric/RUQ pain with associated nausea, emesis, and dehydration. OSH labs include normal CMP, amylase, lipase. Stool bacterial culture, giardia, cryptosporidia,leukocytes all negative. KUB normal. Pt had an obstructive series for abdominal pain and cxr for chest pain during current hospitalization for chest pain that was normal. Cxr was essentially nl- 11/13/11. US- 11/14/11- nl, EKG for chest pain 11/14/11- nl. . Repeat fecal leukocytes negative. Repeat stool cx neg for Shiga toxin. O and P sent on 11/12 and 11/14 neg, second stool cx sent on 11/12 ntd, continues to have high eosinophilia on cbc, Isohemeagglutinins ordered by ID-ABO/RH: O Positive Anti A Cell Titer: 1:512 Anit B Cell Titer: 1:16. Upper and lower GI endoscopy on 11/16/11 showed eosinophilic esophagitis like picture on gross exam, path report in process. Tocara ab neg, trichenella pending. Fecalalpha trypsin pending. TTG.IGA border line high Pt Pt had 5 watery stools in last 24 hours and 3 flushing episodes and vomited twice Plan: - Fu fecal fecal Calprotectin in process - Follow up trichinella IgG ab test. - Levsin - 0.125 mg q4 prn -Flagyl DCed - Nexium IV - Regular diet, bowel rest - Zofran PRN - Prn Tylenol for mild pain and Prn Oxycodon for moderate pain - Benadryl prn for flushing attacks and belly pain - Fu ct scan thorax and abdomen report tomorrow done to exclude any hormone secreting tumor - FU 5 HIAA - FU catecholamines blood ??? ADHD (attention deficit hyperactivity disorder) 11/09/2011 - Continue home Adderall and Vyuliae Selma Mccoy MD [phone] * Yanely Baron LCSW - 11/19/2011 6:03 PM CDT SW received consult and met with parents. Parents have FMLA forms they need completed, and requested meal tickets. As parents live only [place] miles from [facility], they're not eligible for regular, ongoing meal tickets, but SW provided them each one for today as they've exhausted their resources, and encouraged them to have family members bring them food or money for same. They are aware of [facility], as well as parent refrigerator and microwave. HUDSON will contact physician or GI nurse tomorrow regarding FMLA forms. Yanely Baron LCSW [phone] * Ramiro Perez MD - 11/19/2011 3:29 PM CDT Pediatric Attending Daily Progress Note 11/19/2011 03:30 PM Hospital Day: 10 I have interviewed the patient/family and examined this patient. I have reviewed and confirmed/revised the findings of the resident. My findings (todd elements and supplemental information) are as follows: Clinical Course Lavelle has continued to have flushing episodes with a non-pruritic rash the appears and disappears with the flushing episode which is often associated with nausea and vomiting and the non-bloody diarrhea has returned. BM and EGD bx's still pending. Etiology of flushing, rash, nausea, vomiting and diarrhea remains unclear, but symptoms persist. Exam: BP 97/60 Pulse 88 Temp 98.2 ??F Resp 16 Wt 37.2 kg (82 lb 0.2 oz) BMI 17.14 kg/m2 Skin: No cutaneous stigmata to suggest a chronic disease or specific micronutrient deficiency. HENT: MMM; anicteric sclerae. Oral pharynx is clear. Neck: No palpable thyromegaly or cervical lymphadenopathy. Chest: Clear to auscultation bilaterally. Cor: Regular rate and rhythm. Abdomen: Soft and non-distended. There are no masses or organomegaly. There is no localized tenderness to deep palpation. Extremities: No edema, clubbing or cyanosis. Neuro: Nonfocal. Lab/Other Information Component Name 11/19/11 0520 11/18/11 0540 11/17/11 0555 WBC 13.9 11.6 16.9* HGB 14.0 14.2 14.0 HCT 39.8 40.7 39.0 PLTCOUNT 284 267 232 Component Name 11/19/11 0520 11/18/11 0540 11/17/11 0555 11/16/11 1500 11/15/11 0451 11/09/11 1902 BANDMANPCT 1 -- 4 -- -- 2 SEGMANPCT -- -- -- -- -- -- LYMPHMANPCT 40 25 20* -- -- -- EOSMANPCT 26* 38* 29* -- -- -- BASOMANPCT -- -- -- -- 1 -- ATYPLYMPHMAN 1 4 -- 1 -- -- METAMANPCT -- -- -- -- -- -- MYELOMANPCT -- -- -- -- -- -- PLASMAMANPCT -- -- -- -- -- -- IMMATUREPCT -- -- -- -- -- -- OTHERMANPCT -- -- -- -- -- -- NRBC -- -- -- -- -- -- WBCCORRECT -- -- -- -- -- -- RBCMORPH Normal Normal -- Normal -- -- WBCMORPH Normal Normal Normal -- -- -- Active Hospital Problems Diagnoses Date Noted ??? Flushing 11/13/2011 Pt has had couple of episodes of cutaneous flushing with belly and chest pain. Vitals remain stableduring flushing attacks that last from few seconds to a minute. Pt has watery diarrhea for 4 weeks,eosinophilia and low IgG levels. EKG nl. One flushing episode yesterday evening that resolved benadryl Plan - Benadryl prn - Monitor vital signs during attack - Fu fecal alpha trypsin , low igg could be due to loss of protein in feces - Fy labs recommended by Allergy/ Immunology- cbc daily with diff, ua, IgE, crp, sed rate, LUC ??? Eosinophilia 11/10/2011 With one month hx of watery diarrhea with significant eosinophilia on cbc. Repeat cbc continue to have elevated eosinophilia. Immunoglobulins panel with low IGG- 360 Diagnosis; Possible visceral larva migrans vs allergies Plan - upper Gi with gross eosinophilic esophagitis look, fu path report, bone marrow aspiration done attime of scope for concern of neoplasia with high eosinophlis, prelim report not concerning for leukemia but high eosinophils in on bone aspirate, formal report on Saturday -Flagyl 250 mg po TID -Albendazole 200mg po BID , today last dose - fu alpha 1 antitrypsin in feces - Fu urine smear for eosinophils ??? Presumed EE 11/09/2011 11 yo male with diarrhea preceding epigastric/RUQ pain with associated nausea, emesis, and dehydration. OSH labs include normal CMP, amylase, lipase. Stool bacterial culture, giardia, cryptosporidia,leukocytes all negative. KUB normal. Received fluid bolus in ED. Pt had an obstructive series for abdominal pain and cxr for chest pain last night.Obstructive series is showing non specific air bowelpattern with multiple small adynamic air fluid levels with some air in the stomach but no signs of pneumatosis or free air. Cxr was essentially nl- 11/13/11. US- 11/14/11- nl, EKG for chest pain 11/14/11- nl. Suspect infectious trigger for gastritis. Repeat fecal leukocytes negative. Repeat stool cx neg for Shiga toxin. O and P sent on 11/12 neg, second stool cx sent on 11/12 ntd, continues to have high eosinophilia on cbc, Isohemeagglutinins ordered by ID-ABO/RH: O Positive Anti A Cell Titer: 1:512 AnitB Cell Titer: 1:16. Pt showed clinical improvement day before yesterday but belly pain and Water diarrhea recurred yesterday. Pt had 7 watery stools in last 24 hours. Plan: - 3rd set of O and P sent 11/15/11 in process - fecal alpha Trypsin and fecal Calprotectin in process - Follow up toxocara ab, trichinella IgG ab test. - Fu celiac ds panel - Levsin - 0.125 mg q4 prn -Flagyl DCed - Nexium IV - Regular diet, bowel rest - Zofran PRN - Prn Tylenol for mild pain and Prn Oxycodon for moderate pain - Benadryl prn for flushing attacks and belly pain ??? ADHD (attention deficit hyperactivity disorder) 11/09/2011 - Continue home Adderall and Vyvanse Etiology of flushing episodes with abdominal pain remains unclear. Will pursue evaluation because of persistent above symptoms with screens for hormone- secreting tumors with catecholamines and 5HT aswell as urine for 5-hydroxy indole acetic acid. Will also obtain chest and abdominal CT scans and if normal consider UGI series to rule out more definitively an anatomic anomaly. Discussed with parents. See resident's note of 11/19/2011 for further details. Ramiro Perez MD [phone] * Latasha Brown RN - 11/18/2011 9:57 PM CDT Vomiting with Flushing episode occurred at [address] Bray to bedside. An IV was started with fluids, zofran, and benedryl administered. At 2200 he started having severe restless leg syndrome symptoms where he could not sit/lie comfortably in bed. He is hitting his legs and crying due to being uncomfortable. Dr. Bray again to the bedside to evaluate. * Faith Mejía RN - 11/18/2011 5:41 PM CDT Pt complaining of nausea and began flushing episode shortly after. Pt had a couple of bites of mashed potatoes prior to nausea. Pt said he felt hot and his ears, face,upper chest, and back were flushed. Pt eyes were also slightly blood shot. He did not complain of stomach pain just nausea. ZofranPO given. BP taken of 120/85 during episode. * Faith Mejía RN - 11/18/2011 10:16 AM CDT RN called to room. Pt complaining of nausea immediately after breakfast. Pt with emesis approximately 1 hr after breakfast consumed. Dr. Hester paged per parents request. * Ramiro Perez MD - 11/18/2011 9:27 AM CDT Pediatric Attending Daily Progress Note 11/17/2011 11:10 AM Hospital Day: 9 I have interviewed the patient/family and examined this patient. I have reviewed and confirmed/revised the findings of the resident. My findings (todd elements and supplemental information) are as follows: Clinical Course Lavelle remained stable overnight without any significant clinical events. He had a couple of episodes of flushing once with emesis yesterday but his diarrhea has improved. Pt feels his abdominal painis less severe and his appetite and po intake are improved as well. Exam: BP 96/56 Pulse 66 Temp 97.2 ??F Resp 28 Wt 37.2 kg (82 lb 0.2 oz) BMI 17.14 kg/m2 Skin: No cutaneous stigmata to suggest a chronic disease or specific micronutrient deficiency. HENT: MMM; anicteric sclerae. Oral pharynx is clear. Neck: No palpable thyromegaly or cervical lymphadenopathy. Chest: Clear to auscultation bilaterally. Cor: Regular rate and rhythm. Abdomen: Soft and non-distended. There are no masses or organomegaly. There is no localized tenderness to deep palpation. Extremities: No edema, clubbing or cyanosis. Neuro: Nonfocal. Lab/Other Information Component Name 11/18/11 0540 11/17/11 0555 11/16/11 1500 WBC 11.6 16.9* 11.9 HGB 14.2 14.0 14.0 HCT 40.7 39.0 39.0 PLTCOUNT 267 232 278 Component Name 11/18/11 0540 11/17/11 0555 11/16/11 1500 11/15/11 0451 11/09/11 1902 BANDMANPCT -- 4 -- -- 2 SEGMANPCT -- -- -- -- -- LYMPHMANPCT 25 20* 29 -- -- EOSMANPCT 38* 29* 40* -- -- BASOMANPCT -- -- -- 1 -- ATYPLYMPHMAN 4 -- 1 5 -- METAMANPCT -- -- -- -- -- MYELOMANPCT -- -- -- -- -- PLASMAMANPCT -- -- -- -- -- IMMATUREPCT -- -- -- -- -- OTHERMANPCT -- -- -- -- -- NRBC -- -- -- -- -- WBCCORRECT -- -- -- -- -- RBCMORPH Normal -- Normal Normal -- WBCMORPH Normal Normal Normal -- -- Active Hospital Problems Diagnoses Date Noted ??? Flushing 11/13/2011 Pt has had couple of episodes of cutaneous flushing with belly and chest pain. Vitals remain stableduring flushing attacks that last from few seconds to a minute. Pt has watery diarrhea for 4 weeks,eosinophilia and low IgG levels. EKG nl. One flushing episode yesterday evening that resolved benadryl Plan - Benadryl prn - Monitor vital signs during attack - Fu fecal alpha trypsin , low igg could be due to loss of protein in feces - Fy labs recommended by Allergy/ Immunology- cbc daily with diff, ua, IgE, crp, sed rate, LUC ??? Eosinophilia 11/10/2011 With one month hx of watery diarrhea with significant eosinophilia on cbc. Repeat cbc continue to have elevated eosinophilia. Immunoglobulins panel with low IGG- 360 Diagnosis; Possible visceral larva migrans vs allergies Plan - upper Gi with gross eosinophilic esophagitis look, fu path report, bone marrow aspiration done attime of scope for concern of neoplasia with high eosinophlis, prelim report not concerning for leukemia but high eosinophils in on bone aspirate, formal report on Saturday -Flagyl 250 mg po TID -Albendazole 200mg po BID , today last dose - fu alpha 1 antitrypsin in feces - Fu urine smear for eosinophils ??? Presumed EE 11/09/2011 11 yo male with diarrhea preceding epigastric/RUQ pain with associated nausea, emesis, and dehydration. OSH labs include normal CMP, amylase, lipase. Stool bacterial culture, giardia, cryptosporidia,leukocytes all negative. KUB normal. Received fluid bolus in ED. Pt had an obstructive series for abdominal pain and cxr for chest pain last night.Obstructive series is showing non specific air bowelpattern with multiple small adynamic air fluid levels with some air in the stomach but no signs of pneumatosis or free air. Cxr was essentially nl- 11/13/11. US- 11/14/11- nl, EKG for chest pain 11/14/11- nl. Suspect infectious trigger for gastritis. Repeat fecal leukocytes negative. Repeat stool cx neg for Shiga toxin. O and P sent on 11/12 neg, second stool cx sent on 11/12 ntd, continues to have high eosinophilia on cbc, Isohemeagglutinins ordered by ID-ABO/RH: O Positive Anti A Cell Titer: 1:512 AnitB Cell Titer: 1:16. Pt showed clinical improvement day before yesterday but belly pain and Water diarrhea recurred yesterday. Pt had 7 watery stools in last 24 hours. Plan: - 3rd set of O and P sent 11/15/11 in process - fecal alpha Trypsin and fecal Calprotectin in process - Follow up toxocara ab, trichinella IgG ab test. - Fu celiac ds panel - Levsin - 0.125 mg q4 prn -Flagyl DCed - Nexium IV - Regular diet, bowel rest - Zofran PRN - Prn Tylenol for mild pain and Prn Oxycodon for moderate pain - Benadryl prn for flushing attacks and belly pain ??? ADHD (attention deficit hyperactivity disorder) 11/09/2011 - Continue home Adderall and Vyvanse In view of the laboratory studies available to date and the visual findings at EGD , it is possiblethat all of the patient's symptoms may be secondary to the eosinophilic esophagitis but we will await the results of the pending studies (including endoscopic biopsies) and see his response, if any, to swallowed fluticasone. Etiology of flushing episodes with abdominal pain remains unclear. Discussed with parents. See resident's note of 11/18/2011 for further details. Ramiro Perez MD [phone] * Nathan Hester MD - 11/18/2011 8:51 AM CDT Pediatric Resident Daily Progress Note Lavelle Junior Alec 11/18/2011 8:51 AM Hospital Day: 9 Clinical Course One episode of pain/flussing last night, Diarrhea slowed, only one stool Objective Vitals BP: 96/56 mmHg (11/18/11833), Temp: 97.2 ??F (11/18/11833), Pulse: 66 (11/18/11833), Resp: 28 (11/18/11833), SpO2: 97 % (11/16/11 1659), Height: 147.3 cm (4' 10 ) (11/09/11 1427), Weight: 37.2 kg (82 lb 0.2 oz) (11/09/11 1427) Temp (24hrs), Av.2 ??F, Min:97 ??F, Max:99.6 ??F 11/16 699 - 11/17 0659 In: 1439.3 [P.O.:1100; I.V.:339.3] Out: 725 [Urine:725] Exam: General: well appearing, non-toxic Head: NC/AT Cardiovascular: regular rate and rhythm, normal S1 and S2, no murmurs Chest: breath sounds symmetrical without rales or wheezes Abdomen: soft, non-tender, non-distended and no hepatosplenomegaly or masses Lab/Other Information WBC count trending down Active Hospital Problems Diagnoses Date Noted ??? Flushing 11/13/2011 Pt has had couple of episodes of cutaneous flushing with belly and chest pain. Vitals remain stableduring flushing attacks that last from few seconds to a minute. Pt has watery diarrhea for 4 weeks,eosinophilia and low IgG levels. EKG nl. One flushing episode yesterday evening that resolved benadryl Plan - Benadryl prn - Monitor vital signs during attack - Fu fecal alpha trypsin , low igg could be due to loss of protein in feces - Fy labs recommended by Allergy/ Immunology- cbc daily with diff, ua, IgE, crp, sed rate, LUC ??? Eosinophilia 11/10/2011 With one month hx of watery diarrhea with significant eosinophilia on cbc. Repeat cbc continue to have elevated eosinophilia. Immunoglobulins panel with low IGG- 360 Diagnosis; Possible visceral larva migrans vs allergies Plan - upper Gi with gross eosinophilic esophagitis look, fu path report, bone marrow aspiration done attime of scope for concern of neoplasia with high eosinophlis, prelim report not concerning for leukemia but high eosinophils in on bone aspirate, formal report on Saturday -Flagyl 250 mg po TID -Albendazole 200mg po BID , today last dose - fu alpha 1 antitrypsin in feces - Fu urine smear for eosinophils ??? Presumed EE 11/09/2011 11 yo male with diarrhea preceding epigastric/RUQ pain with associated nausea, emesis, and dehydration. OSH labs include normal CMP, amylase, lipase. Stool bacterial culture, giardia, cryptosporidia,leukocytes all negative. KUB normal. Received fluid bolus in ED. Pt had an obstructive series for abdominal pain and cxr for chest pain last night.Obstructive series is showing non specific air bowelpattern with multiple small adynamic air fluid levels with some air in the stomach but no signs of pneumatosis or free air. Cxr was essentially nl- 11/13/11. US- 11/14/11- nl, EKG for chest pain 11/14/11- nl. Suspect infectious trigger for gastritis. Repeat fecal leukocytes negative. Repeat stool cx neg for Shiga toxin. O and P sent on 11/12 neg, second stool cx sent on 11/12 ntd, continues to have high eosinophilia on cbc, Isohemeagglutinins ordered by ID-ABO/RH: O Positive Anti A Cell Titer: 1:512 AnitB Cell Titer: 1:16. Pt showed clinical improvement day before yesterday but belly pain and Water diarrhea recurred yesterday. Pt had 7 watery stools in last 24 hours. Plan: - 3rd set of O and P sent 11/15/11 in process - fecal alpha Trypsin and fecal Calprotectin in process - Follow up toxocara ab, trichinella IgG ab test. - Fu celiac ds panel - Levsin - 0.125 mg q4 prn -Flagyl DCed - Nexium IV - Regular diet, bowel rest - Zofran PRN - Prn Tylenol for mild pain and Prn Oxycodon for moderate pain - Benadryl prn for flushing attacks and belly pain ??? ADHD (attention deficit hyperactivity disorder) 11/09/2011 - Continue home Adderall and Vyvanse Nathan Hester MD [phone] * Ramiro Perez MD - 11/17/2011 11:10 AM CDT Pediatric Attending Daily Progress Note 11/17/2011 11:10 AM Hospital Day: 8 I have interviewed the patient/family and examined this patient. I have reviewed and confirmed/revised the findings of the resident. My findings (todd elements and supplemental information) are as follows: Clinical Course Lavelle underwent upper GI endoscopy and colonoscopy yesterday and the most striking finding involved in the esophagus where there were lesions consistent with he eosinophilic esophagitis. As a resultand after discussing with Dr. Cobb, we started him on Flovent 220 micrograms swallowed b.i.d. He remains stable overnight without any significant clinical events. Preliminary reading on his bone marrow aspirate from yesterday did not suggest any malignant process an additional labs as describedbelow revealed normal serum IgE. Empiric treatment for presumptive parasitic infestation with metronidazole and mebendazole is complete with serologies pending for VLM. AEC today is 4901. Exam: BP 86/47 Pulse 90 Temp 98.4 ??F Resp 20 Wt 37.2 kg (82 lb 0.2 oz) BMI 17.14 kg/m2 Skin: No cutaneous stigmata to suggest a chronic disease or specific micronutrient deficiency. HENT: MMM; anicteric sclerae. Oral pharynx is clear. Neck: No palpable thyromegaly or cervical lymphadenopathy. Chest: Clear to auscultation bilaterally. Cor: Regular rate and rhythm. Abdomen: Soft and non-distended. There are no masses or organomegaly. There is no localized tenderness to deep palpation. Extremities: No edema, clubbing or cyanosis. Neuro: Nonfocal. Lab/Other Information Recent Results (from the past 24 hour(s)) IGE BLOOD Collection Time 11/16/11 3:00 PM Component Value Range IgE Total 127.8 <200 ( IU/ML) C-REACTIVE PROTEIN Collection Time 11/16/11 3:00 PM Component Value Range CRP <0.2 <=0.5 (mg/dL) SED RATE WESTERGREN Collection Time 11/16/11 3:00 PM Component Value Range Sed Rate W[place]gren 4 0-13 (mm/hr) CBC W AUTO DIFFERENTIAL Collection Time 11/16/11 3:00 PM Component Value Range WBC 11.9 4.5-14.5 (x10^9/L) RBC 4.68 4.00-5.20 (x10^12/L) Hgb 14.0 11.5-15.5 (g/dL) HCT 39.0 35.0-45.0 (%) MCV 83.3 77.0-95.0 (fl) MCH 29.9 25.0-33.0 (pg) MCHC 35.9 31.0-37.0 (gm/dL) RDW-CV 12.7 11.5-14.0 (%) MPV 10.5 (*) 6.0-9.5 (fl) Hemo Reflex Status Manual Diff to follow Plt Ct 278 100-400 (x10^9/L) LDH BLOOD Collection Time 11/16/11 3:00 PM Component Value Range LDH 215 140-260 (U/L) URIC ACID BLOOD Collection Time 11/16/11 3:00 PM Component Value Range Uric Acid 3.2 2.0-5.5 (mg/dL) DIFFERENTIAL MANUAL Collection Time 11/16/11 3:00 PM Component Value Range WBC Auto 11.9 Neutro Manual 24 24-66 (%) Lymph Manual 29 22-61 (%) [place] Manual 6 3-15 (%) Eos Manual 40 (*) 0-10 (%) Atyp Lymph Manual 1 Cells Counted 100 Plt Est Adequate platelets RBC Morph Normal WBC Morph Normal URINALYSIS MICROSCOPIC ONLY Collection Time 11/16/11 10:13 PM Component Value Range RBC UA 0-5 0-5 (# /hpf) WBC UA 0-5 0-5 (# /hpf) Bacteria UA Trace None, Trace Epithelial Cell UA 0-5 0-5 Mucus Trace None, Trace URINALYSIS ROUTINE AUTO Collection Time 11/16/11 10:13 PM Component Value Range Color UA Yellow Straw, Yellow, Dark Yellow Clarity UA Clear Clear Specific [place] UA 1.010 1.003-1.030 pH UA 7.0 5.0-8.0 Protein UA Negative Negative Blood UA Negative Negative Leukocyte UA Negative Negative Nitrite UA Negative Negative Glucose UA Negative Negative Ketone UA Trace (*) Negative Bili UA Negative Negative Urobilinogen UA 0.2 0.2-1.0 (EU/dL) Urine Microscopy Urine microscopy to follow (none) EOSINOPHIL URINE SMEAR Collection Time 11/16/11 10:14 PM Component Value Range Eosinophil Urine NONE SEEN NONE SEEN CBC W AUTO DIFFERENTIAL Collection Time 11/17/11 5:55 AM Component Value Range WBC 16.9 (*) 4.5-14.5 (x10^9/L) RBC 4.60 4.00-5.20 (x10^12/L) Hgb 14.0 11.5-15.5 (g/dL) HCT 39.0 35.0-45.0 (%) MCV 84.8 77.0-95.0 (fl) MCH 30.4 25.0-33.0 (pg) MCHC 35.9 31.0-37.0 (gm/dL) RDW-CV 13.2 11.5-14.0 (%) MPV 11.2 (*) 6.0-9.5 (fl) Hemo Reflex Status Manual Diff to follow Plt Ct 232 100-400 (x10^9/L) DIFFERENTIAL MANUAL Collection Time 11/17/11 5:55 AM Component Value Range WBC Auto 16.9 Neutro Manual 40 24-66 (%) Lymph Manual 20 (*) 22-61 (%) [place] Manual 7 3-15 (%) Eos Manual 29 (*) 0-10 (%) Band Manual 4 Cells Counted 100 Plt Est Adequate platelets WBC Morph Normal Anisocytosis Slight Poikilocytosis Slight Active Hospital Problems Diagnoses Date Noted ??? Flushing 11/13/2011 Pt has had couple of episodes of cutaneous flushing with belly and chest pain. Vitals remain stableduring flushing attacks that last from few seconds to a minute. Pt has watery diarrhea for 4 weeks,eosinophilia and low IgG levels. EKG nl. One flushing episode yesterday evening that resolved benadryl Plan - Benadryl prn - Monitor vital signs during attack - Fu fecal alpha trypsin , low igg could be due to loss of protein in feces - Fy labs recommended by Allergy/ Immunology- cbc daily with diff, ua, IgE, crp, sed rate, LUC ??? Eosinophilia 11/10/2011 With one month hx of watery diarrhea with significant eosinophilia on cbc. Repeat cbc continue to have elevated eosinophilia. Immunoglobulins panel with low IGG- 360 Diagnosis; Possible visceral larva migrans vs allergies Plan - upper Gi with gross eosinophilic esophagitis look, fu path report, bone marrow aspiration done attime of scope for concern of neoplasia with high eosinophlis, prelim report not concerning for leukemia but high eosinophils in on bone aspirate, formal report on Saturday -Flagyl 250 mg po TID -Albendazole 200mg po BID , today last dose - fu alpha 1 antitrypsin in feces - Fu urine smear for eosinophils ??? Abdominal pain, diarrhea, emesis 11/09/2011 11 yo male with diarrhea preceding epigastric/RUQ pain with associated nausea, emesis, and dehydration. OSH labs include normal CMP, amylase, lipase. Stool bacterial culture, giardia, cryptosporidia,leukocytes all negative. KUB normal. Received fluid bolus in ED. Pt had an obstructive series for abdominal pain and cxr for chest pain last night.Obstructive series is showing non specific air bowelpattern with multiple small adynamic air fluid levels with some air in the stomach but no signs of pneumatosis or free air. Cxr was essentially nl- 11/13/11. US- 11/14/11- nl, EKG for chest pain 11/14/11- nl. Suspect infectious trigger for gastritis. Repeat fecal leukocytes negative. Repeat stool cx neg for Shiga toxin. O and P sent on 11/12 neg, second stool cx sent on 11/12 ntd, continues to have high eosinophilia on cbc, Isohemeagglutinins ordered by ID-ABO/RH: O Positive Anti A Cell Titer: 1:512 AnitB Cell Titer: 1:16. Pt showed clinical improvement day before yesterday but belly pain and Water diarrhea recurred yesterday. Pt had 7 watery stools in last 24 hours. Plan: - 3rd set of O and P sent 11/15/11 in process - fecal alpha Trypsin and fecal Calprotectin in process - Follow up toxocara ab, trichinella IgG ab test. - Fu celiac ds panel - Levsin - 0.125 mg q4 prn -Flagyl 250 po TID - Albendazole 200mg po BID . Last dose today - Nexium IV - Regular diet, bowel rest - Zofran PRN - Prn Tylenol for mild pain and Prn Oxycodon for moderate pain - Benadryl prn for flushing attacks and belly pain - scheduled for upper and lower Gi endoscopy today at 1;00 pm. Bowel prep ordered ??? ADHD (attention deficit hyperactivity disorder) 11/09/2011 - Continue home Adderall and Vyvanse In view of the laboratory studies available to date and the visual findings at EGD , it is possiblethat all of the patient's symptoms may be secondary to the eosinophilic esophagitis but we will await the results of the pending studies (including endoscopic biopsies) and see his response, if any, to swallowed fluticasone. Discussed with parents. See resident's note of 11/17/2011 for further details. Ramiro Perez MD [phone] * Jeff Bess MD - 11/17/2011 5:48 AM CDT Night Float Cross cover Per Dr. Cobb's recommendations, order placed for Flovent 110 mcg 2 puffs swallowed BID. Jeff Bess PGY 3 Internal Medicine-Pediatrics [phone] * Selma Mccoy MD - 11/16/2011 11:22 AM CDT Pediatric Resident Daily Progress Note Lavelle Reyes 11/16/2011 11:22 AM Hospital Day: 7 Clinical Course No acute events overnight. Stool frequency reduced to 3 in last 24 hours. Pt has an upper and lowerGi scope scheduled today. Objective Vitals BP: 119/69 mmHg (11/16/11 172), Temp: 97.2 ??F (11/16/11 172), Pulse: 50 (11/16/11 172), Resp: 28 (11/16/11 1721), SpO2: 97 % (11/16/11 1659), Height: 147.3 cm (4' 10 ) (11/09/11 1427), Weight: 37.2 kg (82 lb 0.2 oz) (11/09/11 1427) Temp (24hrs), Av.4 ??F, Min:96.8 ??F, Max:98.2 ??F 11/14 1500 - 11/15 1459 In: 1820 [P.O.:1180; I.V.:640] Out: 725 [Urine:625] Exam: General: well appearing Neck: supple, non-tender, with full ROM, and no lymphadenopathy Cardiovascular: regular rate and rhythm, normal S1 and S2, no murmurs Chest: breath sounds symmetrical without rales or wheezes Abdomen: soft, non-tender, point tenderness in the RUQ and no hepatosplenomegaly or masses Lab/Other Information Placed orders for labs recommended by Immunology. cbc daily, ua, ESR, CPR, IgE, LUC. Also sent urine for Eosinophils. Pending labs- toxocara ab, trichenella ab, Fecal ova and parasites, fecal elastase, Fecal [place] protectin Active Hospital Problems Diagnoses Date Noted ??? Flushing 11/13/2011 Pt has had couple of episodes of cutaneous flushing with belly and chest pain. Vitals remain stableduring flushing attacks that last from few seconds to a minute. Pt has watery diarrhea for 4 weeks,eosinophilia and low IgG levels. EKG nl. One flushing episode yesterday evening that resolved benadryl Plan - Benadryl prn - Monitor vital signs during attack - Fu fecal alpha trypsin , low igg could be due to loss of protein in feces - Fy labs recommended by Allergy/ Immunology- cbc daily with diff, ua, IgE, crp, sed rate, LUC ??? Eosinophilia 11/10/2011 With one month hx of watery diarrhea with significant eosinophilia on cbc. Repeat cbc continue to have elevated eosinophilia. Immunoglobulins panel with low IGG- 360 Diagnosis; Possible visceral larva migrans vs allergies Plan - upper Gi with gross eosinophilic esophagitis look, fu path report, bone marrow aspiration done attime of scope for concern of neoplasia with high eosinophlis, prelim report not concerning for leukemia but high eosinophils in on bone aspirate, formal report on Saturday -Flagyl 250 mg po TID -Albendazole 200mg po BID , today last dose - fu alpha 1 antitrypsin in feces - Fu urine smear for eosinophils ??? Abdominal pain, diarrhea, emesis 11/09/2011 11 yo male with diarrhea preceding epigastric/RUQ pain with associated nausea, emesis, and dehydration. OSH labs include normal CMP, amylase, lipase. Stool bacterial culture, giardia, cryptosporidia,leukocytes all negative. KUB normal. Received fluid bolus in ED. Pt had an obstructive series for abdominal pain and cxr for chest pain last night.Obstructive series is showing non specific air bowelpattern with multiple small adynamic air fluid levels with some air in the stomach but no signs of pneumatosis or free air. Cxr was essentially nl- 11/13/11. US- 11/14/11- nl, EKG for chest pain 11/14/11- nl. Suspect infectious trigger for gastritis. Repeat fecal leukocytes negative. Repeat stool cx neg for Shiga toxin. O and P sent on 11/12 neg, second stool cx sent on 11/12 ntd, continues to have high eosinophilia on cbc, Isohemeagglutinins ordered by ID-ABO/RH: O Positive Anti A Cell Titer: 1:512 AnitB Cell Titer: 1:16. Pt showed clinical improvement day before yesterday but belly pain and Water diarrhea recurred yesterday. Pt had 7 watery stools in last 24 hours. Plan: - 3rd set of O and P sent 11/15/11 in process - fecal alpha Trypsin and fecal Calprotectin in process - Follow up toxocara ab, trichinella IgG ab test. - Fu celiac ds panel - Levsin - 0.125 mg q4 prn -Flagyl 250 po TID - Albendazole 200mg po BID . Last dose today - Nexium IV - Regular diet, bowel rest - Zofran PRN - Prn Tylenol for mild pain and Prn Oxycodon for moderate pain - Benadryl prn for flushing attacks and belly pain - scheduled for upper and lower Gi endoscopy today at 1;00 pm. Bowel prep ordered ??? ADHD (attention deficit hyperactivity disorder) 11/09/2011 - Continue home Adderall and Vyvanse Selma Mccoy MD [phone] * Kenzie Cobb MD - 11/16/2011 8:00 AM CDT Pediatric Attending Daily Progress Note 11/16/2011 8:00 AM Hospital Day: 7 I have interviewed the patient/family and examined this patient. I have reviewed and confirmed/revised the findings of the resident. My findings (todd elements and supplemental information) are as follows: Clinical Course Lavelle had another flushing episode yesterday (involving face, neck, torso) with some abdominal pain. He completed bowel prep in anticipation of EGD/colonoscopy today. Exam: BP 75/32 Pulse 66 Temp 97.2 ??F Resp 20 Wt 37.2 kg (82 lb 0.2 oz) BMI 17.14 kg/m2 GEN: awake, alert, interactive with exam in no acute distress HEENT: sclera anicteric, mucus membranes moist, no oral lesion CV: regular rate and rhythm without murmur LUNGS: clear to auscultation bilaterally, equal aeration bilat ABD: soft, not apparently tender or distended, no organomegaly, bowel sounds present EXT: warm and well perfused NEURO: no obvious deficits PSYCH: appropriate mentation for age Lab/Other Information Patient Active Problem List Diagnoses ??? Abdominal pain, diarrhea, emesis ??? ADHD (attention deficit hyperactivity disorder) ??? Eosinophilia ??? Flushing ASSESSMENT/PLAN 11 y/o with persistent eosinophilia, diarrhea, and flushing events. DDx includes parasitic infection (on therapy, without symptom improvement), eosinophilic enteropathies, benign/malignancy eosinophilia syndromes 1. Discussed with oncologist, in light of clinical history with malignancy on DDX and given that Lavelle underoing sedation for EGD/colonoscopy today, she has kindly agreed to perform bone aspiration while Lavelle sedation for GI procedure. Formal consultation from oncology to follow. See resident's note of 11/16/2011 for further details. Kenzie Cobb MD Addendum: EGD suggestive of eosinophilic esophagitis with evidence of linear furrowing. There was also scattered erythema in bulb of duodenum. Awaiting biopsy results * Tiffany Currie RN - 11/15/2011 9:59 PM CDT Problem: Knowledge Deficit Goal: Patient/family will demonstrate understanding of procedures, therapies and disease process Outcome: Ongoing Reviewed plan for bowel regimen prior to procedures * Digna Sherman RN - 11/15/2011 1:52 PM CDT Problem: Fluid and Electrolyte Imbalance Goal: Patient will maintain adequate fluid volume and electrolyte balance Outcome: Ongoing Patient with continual diarrhea; IVF and PO clears. Patient with adequate intake and output * Selma Mccoy MD - 11/15/2011 12:01 PM CDT Pediatric Resident Daily Progress Note Lavelle Reyes 11/15/2011 12:01 PM Hospital Day: 6 Clinical Course Pt clinically better this am. Continues to have diarrhea. Pt has 7 watery stools in last 24 hours. One episode of cutaneous flushing that resolved with Benadryl. Objective Vitals BP: 101/65 mmHg (11/15/11814), Temp: 98 ??F (11/15/11814), Pulse: 74 (11/15/11 08), Resp: 18 (11/15/11814), SpO2: 98 % (11/14/11 0048), Height: 147.3 cm (4' 10 ) (11/09/11 1427), Weight: 37.2 kg (82 lb 0.2 oz) (11/09/11 1427) Temp (24hrs), Av.3 ??F, Min:97 ??F, Max:99.2 ??F 11/13 699 - 11/14 0559 In: 2042.6 [P.O.:960; I.V.:1082.6] Out: 1345 [Urine:1345] Exam: General: well appearing Neck: supple, non-tender, with full ROM, and no lymphadenopathy Cardiovascular: regular rate and rhythm, normal S1 and S2, no murmurs Chest: breath sounds symmetrical without rales or wheezes Abdomen: soft, non-tender, point tenderness in the RUQ and no hepatosplenomegaly or masses Lab/Other Information On CBC pt continues to have high eosinophilia- 40, second set of O and P sent on 11/12 neg., stool cxsent on 11/12 ntd. Fu 3rd set of O and P Isohemagglutinins recommended by ID- ABO/RH: O Positive Anti A Cell Titer: 1:512 Anit B Cell Titer:1:16 Fu toxo pacheco ab , trichenella ab, fecal alpha trypsin and fecal calprotectin and celiac ds panel Active Hospital Problems Diagnoses Date Noted ??? Flushing 11/13/2011 Pt has had couple of episodes of cutaneous flushing with belly and chest pain. Vitals remain stableduring flushing attacks that last from few seconds to a minute. Pt has watery diarrhea for 4 weeks,eosinophilia and low IgG levels. EKG nl. One flushing episode yesterday evening that resolved benadryl Plan - Benadryl prn - Monitor vital signs during attack - Fu fecal alpha trypsin , low igg could be due to loss of protein in feces - Allergy/ Immunology will see the pt today. Fu A/I note ??? Eosinophilia 11/10/2011 With one month hx of watery diarrhea with significant eosinophilia on cbc. Repeat cbc continue to have elevated eosinophilia. 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 Abdominal pain, diarrhea, emesis 11/09/2011 11 yo male with diarrhea preceding epigastric/RUQ pain with associated nausea, emesis, and dehydration. OSH labs include normal CMP, amylase, lipase. Stool bacterial culture, giardia, cryptosporidia,leukocytes all negative. KUB normal. Received fluid bolus in ED. Pt had an obstructive series for abdominal pain and cxr for chest pain last night.Obstructive series is showing non specific air bowelpattern with multiple small adynamic air fluid levels with some air in the stomach but no signs of pneumatosis or free air. Cxr was essentially nl- 11/13/11. US- 11/14/11- nl, EKG for chest pain 11/14/11- nl. Suspect infectious trigger for gastritis. Repeat fecal leukocytes negative. Repeat stool cx neg for Shiga toxin. O and P sent on 11/12 neg, second stool cx sent on 11/12 ntd, continues to have high eosinophilia on cbc, Isohemeagglutinins ordered by ID-ABO/RH: O Positive Anti A Cell Titer: 1:512 AnitB Cell Titer: 1:16. Pt showed clinical improvement day before yesterday but belly pain and Water diarrhea recurred yesterday. Pt had 7 watery stools in last 24 hours. Plan: - Ova and Parasite panel from 11/12 neg and sent 3rd set of O and P today - fecal alpha Trypsin and fecal Calprotectin in process - Follow up toxocara ab, trichinella IgG ab test.Checked with reference lab the test will take one week to come back. - fu celiac ds panel - Levsin - 0.125 mg q4 prn -Flagyl 250 po TID - Albendazole 200mg po BID for two more days for total antihelminthic therapy for 5 days - Nexium IV - Regular diet, bowel rest - Zofran PRN - Prn Tylenol for mild pain and Prn Oxycodon for moderate pain - Benadryl prn for flushing attacks and belly pain - scheduled for upper and lower Gi endoscopy tomorrow. Bowel prep ordered ??? ADHD (attention deficit hyperactivity disorder) 11/09/2011 - Continue home Adderall and Vyvanse Selma Mccoy MD [phone] * Kunal Goff MD - 11/15/2011 7:45 AM CDT Allergy/Immunology Fellow Consult Note Date of Admission: 11/09/2011 Date of Consult: 11/15/2011 Physician Requesting Consult: Selma Mccoy MD Reason for Consult: Eosinophilia Chief Complaint/History of Present Illness: 11 year old with PMH of ADHD presented to the hospital on 11/09/2011 complaining of abdominal pain, diarrhea and vomiting. The Hx started 4 week ago in the middle of the Vacation in [facility], Pt started havingdiarrhea 5-6 times a day, watery, not bloody, no mucous associated with abdominal pain in the RUQ and epigastric area, he went to ER OSH and got course of flagyl without any benefit then 1 week ago Pt had many episodes of vomiting and hives which started first in the face and spread down to his abdomen. The hives last 0.5-2 hr, itchy, resolved with benadryl, without bruising. Has 3 episodes last one was yesterday. Denies any SOB, Fever, no syncope. During the hospitalization Pt received 1 dose of morphine for abdominal pain and he is on albendazole and flagyl but without any significant improvement. Pt had Hx of egg allergy when he was 1 year old (abdominal pain and vomiting) but pt eat cake and products where the egg is included. Also has hx of exercised induced asthma which well controlled with albuterol prn. PMHx: Patient Active Problem List Diagnoses Date Noted ??? Flushing 11/13/2011 Pt has had couple of episodes of cutaneous flushing with belly and chest pain. Vitals remain stableduring flushing attacks that last from few seconds to a minute. Pt has watery diarrhea for 4 weeks,eosinophilia and low IgG levels. EKG nl. No flushing episode in last 24 hours Plan - Benadryl prn - Monitor vital signs during attack - If continues to have flushing episodes , consider Allergy and immunology consult - Fu fecal alpha trypsin , low igg could be due to loss of protein in feces ??? Eosinophilia 11/10/2011 With one month hx of watery diarrhea with significant eosinophilia on cbc. Repeat cbc continue to have elevated eosinophilia. 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 Abdominal pain, diarrhea, emesis 11/09/2011 11 yo male with diarrhea preceding epigastric/RUQ pain with associated nausea, emesis, and dehydration. OSH labs include normal CMP, amylase, lipase. Stool bacterial culture, giardia, cryptosporidia,leukocytes all negative. KUB normal. Received fluid bolus in ED. Pt had an obstructive series for abdominal pain and cxr for chest pain last night.Obstructive series is showing non specific air bowelpattern with multiple small adynamic air fluid levels with some air in the stomach but no signs of pneumatosis or free air. Cxr was essentially nl- 11/13/11. US- 11/14/11- nl, EKG for chest pain 11/14/11- nl. Suspect infectious trigger for gastritis. Pt showed significant clinical improvement over last 24 hours. Belly pain resolving, diarrhea frequency reduced. Repeat fecal leukocytes negative. Repeat stool cx neg for Shiga toxin. Plan: -Fu stool cx and O and P panel. - fecal alpha Trypsin and fecal Calprotectin in process - Follow up toxocara ab, trichinella IgG ab test, Isohemeagglutinins.Checked with reference lab thetest will take one week to come back. - Levsin - 0.125 mg q4 prn -Flagyl 250 po TID - Albendazole 200mg po BID for two more days for total antihelminthic therapy for 5 days - Nexium IV - discontinue MIVF as po good and diarrhea resolved - Regular diet, bowel rest - Zofran PRN - Prn Tylenol for mild pain and Prn Oxycodon for moderate pain - Benadryl prn for flushing attacks and belly pain - If continue to do well will consider discharge tomorrow ??? ADHD (attention deficit hyperactivity disorder) 11/09/2011 - Continue home Adderall and Vyvanse Outpatient Medications: Prescriptions prior to admission Medication Sig Dispense Refill ??? lisdexamfetamine (VYVANSE) 40 MG capsule Take 40 mg by mouth once daily. ??? amphetamine-dextroamphetamine (ADDERALL) 5 MG tablet Take 5 mg by mouth every morning. Current Facility-Administered Medications Medication Dose Route Frequency Provider Last Rate Last Dose ??? albendazole (ALBENZA) tablet 200 mg 200 mg Oral BID Selma Mccoy MD 200 mg at 11/14/113 ??? hyoscyamine (LEVSIN) tablet 0.125 mg 0.125 mg Oral q4h PRN Isatu Madrid MD ??? acetaminophen (TYLENOL) tablet 325 mg 325 mg Oral q4h PRN Ezekiel Doshi MD 325 mg at 450 ??? metroNIDAZOLE (FLAGYL) tablet 250 mg 250 mg Oral q8h Ezekiel Doshi MD 250 mg at 11/15/11 0100 ??? ondansetron (ZOFRAN) injection 6 mg 6 mg Intravenous q6h PRN Myah Aj MD 6 mg at 11/15/11 0509 ??? diphenhydrAMINE (BENADRYL) injection 25 mg 25 mg Intravenous q6h PRN Myah Aj MD 25 mgat 11/14/11 1603 ??? morphine injection 2 mg 2 mg Intravenous Once PRN Myah Aj MD ??? amphetamine-dextroamphetamine (ADDERALL) tablet 5 mg 5 mg Oral q24h Ezekiel Doshi MD 5 mg at 11/13/11 1603 ??? lisdexamfetamine (VYVANSE) capsule 40 mg 40 mg Oral QDAY Ezekiel Doshi MD 40 mg at 11/14/11 0836 ??? dextrose 5% and 0.45% NaCl with KCl 20 mEq infusion Intravenous Continuous Isatu Madrid MD 40 mL/hr at 11/14/11 1002 ??? esomeprazole (NexIUM) injection 10 mg 10 mg Intravenous BID Ezekiel Doshi MD 10 mg at 11/14/11 1955 Medication Allergies: Allergies Allergen Reactions ??? Eggs Social Hx: no tobacco abuse No ETOH use No illegal drug use. Environmental Hx: Lives in a house , 4 dogs at home. FHx: Mother side: cancer Review of Systems: Constitutional: No weight loss/gain, fever, ROACH, fatigue ENT: no Rhinitis, nasal congestion, sneezing, ocular/nasal pruritus CV: No CP, SOB, PND, palpitation, HTN, MAYA Resp: no wheeze, cough, SOB :no retention, incontinence, dysuria, hematuria MS: no joint/bone pain, swelling, redness, vasculitis Neuro:++ weakness, numbness, confusion, syncope Skin: +++ hives, swelling, pruritus, Psych: no anxiety, depression, panic attacks Endocrine: no thyroid, polyuria, polydipsia, flushing Heme/Lymph: No bruising/bleeding, hx of abnormal blood counts PE: Vitals: 11/14/11 0850 11/14/11 1616 11/14/11 1933 11/15/11 0056 BP: 110/68 119/74 101/62 94/47 Pulse: 90 85 78 68 Temp: 96.2 ??F 99.2 ??F 98.8 ??F 97 ??F Resp: 28 20 18 20 Weight: SpO2: Gen: NAD Eyes: PERRL, EOMI, conjunctiva clear B with B allergic shiners. ENT: TM-clear B, nares - patent with pale, boggy nasal mucosa, no Sinus Tenderness, OP-clear. Neck: Supple, FROM. Thyroid: Normal size, no palpable goiter. CV: RRR s m Resp: CTAB, no wheezes ABD: soft, tenderness in his RUQ and epigastric area, rectal exam: erythema around anus, sphincter is normal, no blood in the stool. Extr: no c/c/e Skin: no lesions/rashes Lymphatic: Palpation of nodes in neck/axillae show no LAD Psych: Appropriate, A&O x3. Data Review: 1-CXR on 11/12/11 Reactive airways changes as described above with no confluent infiltrate. 2-Obstructive series dated Nov 12, 2011 05:14:12 PM [...] multiple adynamic air-fluid levels as described above. 3-Abdominal US Normal abdominal ultrasound Assessment and Recommendations: 1-abdominal pain, diarrhea and hypereosinophilia Eosinophil counts are: 5840. 40% -repeat ova and parasite in the stool X 3 , order IGE level, daily CBC with diff. -UA Benign causes of hypereosinophilia include drug responses, parasitic illness, and autoimmune conditions: -would obtain CRP, sed rate, and LUC. -agree with Toxicara Canis titer, already drawn. Malignant causes unlikely -if more than one cell line affected on CBC with diff, then would consult Heme Onc for a possible bone marrow biopsy. -if hypereosinophilia persists, then would obtain an echo , and consider a gene assay for hypereosinophilic syndrome:FIP1 L1 PDGFR alpha Would like A/I follow up, plan food and inhalant allergy testing as an outpatient. Thank you for allowing me to participate in the care of your patient. Rashi Johnston MD 11/15/2011 7:45 AM Attending Physician Supervisory Note I personally interviewed and examined the patient and agree with the doctor above. 11 yo patient with abdominal pain and diarrhea x 4 weeks, non-bruising hives x 2 weeks, and significant eosinophilia without clear drug or allergic triggers. + 4 dogs in the home. Recent trip to [place], but symptoms started before departure. Asessment: Esosinophilia Diarrhea with abdominal pain. I agree with the note above. Kunal Goff MD * Kenzie Cobb MD - 11/15/2011 7:41 AM CDT Pediatric Attending Daily Progress Note 11/15/2011 7:41 AM Hospital Day: 6 I have interviewed the patient/family and examined this patient. I have reviewed and confirmed/revised the findings of the resident. My findings (todd elements and supplemental information) are as follows: Clinical Course Lavelle was doing well with no pain, and 2 more formed stools yesterday morning.. HOwever, yesterdaylate afternoon, had another issue with a signficant flushing episode (very red face and torso) followed by diarrhea. He again had few loose stools. He did not have chest pain with this episode as he had previously. In fact, he reports little abdominal pain as well (different than previous). He received benadryl for this episode and parents reported took much longer for flushing to resolve. Total WBC and eosinophil count up this morning Exam: BP 94/47 Pulse 68 Temp 97 ??F Resp 20 Wt 37.2 kg (82 lb 0.2 oz) BMI 17.14 kg/m2 GEN: awake, alert, interactive with exam [...] obvious deficits PSYCH: appropriate mentation for age Lab/Other Information Component Name 11/15/11 0451 11/15/11 0451 11/09/11 1902 WBC 14.6* -- -- RBC 4.68 -- -- HGB 14.0 -- -- HCT 39.9 -- -- MCV 85.3 -- -- MCH 29.9 -- -- MCHC 35.1 -- -- RDW -- -- -- PLTCOUNT 267 -- -- BANDMANPCT -- -- 2 SEGMANPCT -- -- -- LYMPHMANPCT -- 26 -- MONOMANPCT -- 4 -- EOSMANPCT -- 40* -- ATYPLYMPHMAN -- 5 -- METAMANPCT -- -- -- MYELOMANPCT -- -- -- PROMYELOMAN -- -- -- BLASTMANPCT -- -- -- IMMATUREPCT -- -- -- PLASMAMANPCT -- -- -- OTHERMANPCT -- -- -- NRBC -- -- -- WBCCORRECT -- -- -- RBCMORPH -- Normal -- WBCMORPH -- Normal -- Assessment/Plan 11 y/o male with 4+ weeks of diarrhea, found to have signficant peripheral eosinophila. After what seemed to be 1 day of improvement, he has had recrudescence of diarrhea symtpoms and worsening of peripheral eosinophilia. 1. Consult with Immunology service today regarding eosinophilia/diarrhea - hypereosinophila syndrom 2. Plan for EGD/colonoscopy for Saturday to evaluate for mucosal disease (though clinical hx not suggestive of IBD), tissue eosinophilia 3. Continue anti-helminth therapy for now..awaiting toxocara antibiody evaluation for visceral larva migrans. If positive, recent symptoms may be explained as occuring with treatment response? 3. Celiac screen pending 4. Follow up stool studies including calprotectin, stool, [id number] 5. Repeat stool ova & parasites See resident's note of 11/15/2011 for further details. Kenzie Cobb MD * Kenzie Cobb MD - 11/14/2011 5:39 PM CDT Pediatric Attending Daily Progress Note 11/14/2011 5:39 PM Hospital Day: 5 I have interviewed the patient/family and examined this patient. I have reviewed and confirmed/revised the findings of the resident. My findings (todd elements and supplemental information) are as follows: Clinical Course IMproved frequency diarrhea, last 2 BM's formed. No pain Exam: BP 119/74 Pulse 85 Temp 99.2 ??F Resp 20 Wt 37.2 kg (82 lb 0.2 oz) BMI 17.14 kg/m2 GEN: awake, alert, interactive with exam in no acute distress HEENT: sclera anicteric, mucus membranes moist, no oral lesion CV: regular rate and rhythm without murmur LUNGS: clear to auscultation bilaterally, equal aeration bilat ABD: soft, not apparently tender or distended, no organomegaly, bowel sounds present EXT: warm and well perfused NEURO: no obvious deficits PSYCH: appropriate mentation for age Lab/Other Information Component Name 11/13/11 0449 11/13/11 0449 11/09/11 1902 WBC 12.8 -- -- RBC 4.64 -- -- HGB 14.0 -- -- HCT 39.6 -- -- MCV 85.3 -- -- MCH 30.2 -- -- MCHC 35.4 -- -- RDW -- -- -- PLTCOUNT 257 -- -- BANDMANPCT -- -- 2 SEGMANPCT -- -- -- LYMPHMANPCT -- 25 -- MONOMANPCT -- 4 -- EOSMANPCT -- 39* -- ATYPLYMPHMAN -- 6 -- METAMANPCT -- -- -- MYELOMANPCT -- -- -- PROMYELOMAN -- -- -- BLASTMANPCT -- -- -- IMMATUREPCT -- -- -- PLASMAMANPCT -- -- -- OTHERMANPCT -- -- -- NRBC -- -- -- WBCCORRECT -- -- -- RBCMORPH -- -- -- WBCMORPH -- Normal -- ASSESSMENT/PLAN IN summary, Lavelle is a 11 y/o male with 1 month h/o diarrhea, abdominal pain and peripheral eosinophilia. First day of clinical improvement today. Presumptive parasitic infection, on anti-helminth therapy. Will reassess next 24 hours, if continued improvement/resolution of symptoms may be able to go home tomorrow.. See resident's note of 11/14/2011 for further details. Kenzie Cobb MD * Selma Mccoy MD - 11/14/2011 2:07 PM CDT Pediatric Resident Daily Progress Note Lavelle Reyes 11/14/2011 2:08 PM Hospital Day: 5 Clinical Course Pt clinically improving. Vomiting resolved. Diarrhea frequency reduced in last 24 hours. Belly painresolving. Pt did not ask for pain medication overnight. Appetite fair. UOP good. Objective Vitals BP: 110/68 mmHg (11/14/11 0850), Temp: 96.2 ??F (11/14/11 0850), Pulse: 90 (11/14/11 0850), Resp: 28 (11/14/11 0850), SpO2: 98 % (11/14/11 0048), Height: 147.3 cm (4' 10 ) (11/09/11 1427), Weight: 37.2 kg (82 lb 0.2 oz) (11/09/11 1427) Temp (24hrs), Av.6 ??F, Min:96.2 ??F, Max:97 ??F 11/12 1500 - 11/13 1459 In: 2955.2 [P.O.:1015; I.V.:1940.2] Out: 1775 [Urine:1775] Exam: General: well appearing Neck: supple, non-tender, with full ROM, and no lymphadenopathy Cardiovascular: regular rate and rhythm, normal S1 and S2, no murmurs Chest: breath sounds symmetrical without rales or wheezes Abdomen: soft, non-tender, point tenderness in the RUQ and no hepatosplenomegaly or masses Lab/Other Information Fecal lekocytes neg Prelim repeat stool cx neg for shiga toxin Repeat stool cx and O and P in process send out labs toxocara ab, trichnella ab and isohemagglutinis in process fecal alpha trypsin and calprotectin in process Active Hospital Problems Diagnoses Date Noted ??? Flushing 11/13/2011 Pt has had couple of episodes of cutaneous flushing with belly and chest pain. Vitals remain stableduring flushing attacks that last from few seconds to a minute. Pt has watery diarrhea for 4 weeks,eosinophilia and low IgG levels. EKG nl. No flushing episode in last 24 hours Plan - Benadryl prn - Monitor vital signs during attack - If continues to have flushing episodes , consider Allergy and immunology consult - Fu fecal alpha trypsin , low igg could be due to loss of protein in feces ??? Eosinophilia 11/10/2011 With one month hx of watery diarrhea with significant eosinophilia on cbc. Repeat cbc continue to have elevated eosinophilia. 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 Abdominal pain, diarrhea, emesis 11/09/2011 11 yo male with diarrhea preceding epigastric/RUQ pain with associated nausea, emesis, and dehydration. OSH labs include normal CMP, amylase, lipase. Stool bacterial culture, giardia, cryptosporidia,leukocytes all negative. KUB normal. Received fluid bolus in ED. Pt had an obstructive series for abdominal pain and cxr for chest pain last night.Obstructive series is showing non specific air bowelpattern with multiple small adynamic air fluid levels with some air in the stomach but no signs of pneumatosis or free air. Cxr was essentially nl- 11/13/11. US- 11/14/11- nl, EKG for chest pain 11/14/11- nl. Suspect infectious trigger for gastritis. Pt showed significant clinical improvement over last 24 hours. Belly pain resolving, diarrhea frequency reduced. Repeat fecal leukocytes negative. Repeat stool cx neg for Shiga toxin. Plan: -Fu stool cx and O and P panel. - fecal alpha Trypsin and fecal Calprotectin in process - Follow up toxocara ab, trichinella IgG ab test, Isohemeagglutinins.Checked with reference lab thetest will take one week to come back. - Levsin - 0.125 mg q4 prn -Flagyl 250 po TID - Albendazole 200mg po BID for two more days for total antihelminthic therapy for 5 days - Nexium IV - discontinue MIVF as po good and diarrhea resolved - Regular diet, bowel rest - Zofran PRN - Prn Tylenol for mild pain and Prn Oxycodon for moderate pain - Benadryl prn for flushing attacks and belly pain - If continue to do well will consider discharge tomorrow ??? ADHD (attention deficit hyperactivity disorder) 11/09/2011 - Continue home Adderall and Vyvanse Selma Mccoy MD [phone] * Selma Mccoy MD - 11/13/2011 11:22 AM CDT Pediatric Resident Daily Progress Note Lavelle Reyes 11/13/2011 11:23 AM Hospital Day: 4 Clinical Course Pt c/o abdominal pain and chest pain yesterday afternoon and overnight. Pt also experienced couple of attacks of flushing over last 24 hours that were self resolved. Vomited once yesterday and had multiple watery stools. Appetite is fair. No urinary problems. Objective Vitals BP: 103/53 mmHg (11/13/11815), Temp: 96 ??F (11/13/11815), Pulse: 68 (11/13/11815), Resp: 16 (11/13/11815), SpO2: 99 % (11/13/11815), Height: 147.3 cm (4' 10 ) (11/09/11 1427), Weight: 37.2 kg (82 lb 0.2 oz) (11/09/11 142) Temp (24hrs), Av.3 ??F, Min:96 ??F, Max:98.4 ??F 11/11 0700 - 11/12 0659 In: 1997.6 [P.O.:1040; I.V.:957.6] Out: 700 [Urine:700] Exam: General: well appearing Neck: supple, non-tender, with full ROM, and no lymphadenopathy Cardiovascular: regular rate and rhythm, normal S1 and S2, no murmurs Chest: breath sounds symmetrical without rales or wheezes Abdomen: soft, non-tender, point tenderness in the RUQ and no hepatosplenomegaly or masses Lab/Other Information Results for LAVELLE REYES ( ) as of 11/13/2011 11:30 Ref. Range 11/13/2011 04:49 11/13/2011 04:49 IgM Latest Range: 22-240 mg/dL 41 IgA Latest Range: 63-484 mg/dL 100 IgG Latest Range: 540-1822 mg/dL 360 (L) WBC Latest Range: 4.5-14.5 x10^9/L 12.8 WBC Auto No range found 12.8 RBC Latest Range: 4.00-5.20 x10^12/L 4.64 Hgb Latest Range: 11.5-15.5 g/dL 14.0 Hct Latest Range: 35.0-45.0 % 39.6 MCV Latest Range: 77.0-95.0 fl 85.3 MCH Latest Range: 25.0-33.0 pg 30.2 MCHC Latest Range: 31.0-37.0 gm/dL 35.[address] Latest Range: 100-400 x10^9/L 257 RDW-CV Latest Range: 11.5-14.0 % 13.1 MPV Latest Range: 6.0-9.5 fl 9.9 (H) Hemo Reflex Status No range found Manual Diff to follow Neutro Manual Latest Range: 24-66 % 26 Lymph Manual Latest Range: 22-61 % 25 [place] Manual Latest Range: 3-15 % 4 Eos Manual Latest Range: 0-10 % 39 (H) Atyp Lymph Manual No range found 6 WBC Morph No range found Normal Plt Est No range found Adequate platelets Cells Counted No range found 100 Anisocytosis No range found Slight Poikilocytosis No range found Slight Active Hospital Problems Diagnoses Date Noted ??? Flushing 11/13/2011 Pt has had couple of episodes of cutaneous flushing with belly and chest pain. Vitals remain stableduring flushing attacks that last from few seconds to a minute. Pt has watery diarrhea for 4 weeks,eosinophilia and low IgG levels. Plan - Benadryl prn - Fu EKG - Monitor vital signs during attack - If continues to have flushing episodes , consider Allergy and immunology consulrt ??? Eosinophilia 11/10/2011 With one month hx of watery diarrhea with significant eosinophilia on cbc. Repeat cbc continue to have elevated eosinophilia. 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 Abdominal pain, diarrhea, emesis 11/09/2011 11 yo male with diarrhea preceding epigastric/RUQ pain with associated nausea, emesis, and dehydration. OSH labs include normal CMP, amylase, lipase. Stool bacterial culture, giardia, cryptosporidia,leukocytes all negative. KUB normal. Received fluid bolus in ED. Pt had an obstructive series for abdominal pain and cxr for chest pain last night.Obstructive series is showing non specific air bowelpattern with multiple small adynamic air fluid levels with some air in the stomach but no signs of pneumatosis or free air. Cxr was essentially nl. Suspect infectious trigger for gastritis. Pt continue to have Watery diarrhea with abdominal pain. Plan: -Repeat stool cx and O and P panel. -Send for fecal leukocytes - fecal alpha trypsin - levsin - 0.125 mg q4 prn -Flagyl 250 po TID - Mebendazole 100mg po BID - Nexium IV - MIVF - Regular diet, bowel rest - Zofran PRN - Prn Tylenol for mild pain and Prn Oxycodon for moderate pain - Benadryl prn for flushing attacks and belly pain - Follow up toxocara ab, trichinella IgG ab test, Isohemeagglutinins.Checked with reference lab thetest will take one week to come back. - Fu US results ??? ADHD (attention deficit hyperactivity disorder) 11/09/2011 - Continue home Adderall and Vyvanse Selma Mccoy MD [phone] * Kenzie Cobb MD - 11/13/2011 10:46 AM CDT Pediatric Attending Daily Progress Note 11/13/2011 10:46 AM Hospital Day: 4 I have interviewed the patient/family and examined this patient. I have reviewed and confirmed/revised the findings of the resident. My findings (todd elements and supplemental information) are as follows: Clinical Course Lavelle remains admitted with issues related to signficant diarhea and abdominal pain. He had roughly 11 stools in prev 24 hours per nursing report. Stools described as watery. Already had 2 loose BM's at time of rounds this morning. Did have episode of pain last night associated with flushing in the face and upper chest per parents/resident staff. Lavelle becomes very anxious and cries withp ain during these episodes. Parents report benadryl seemed to help, was also given morphine X 1, ativan X1. During team rounds this morning, Lavelle had another episode of pain which he localizes to left mid chest. No vital signs changes. He did have mild flushing on his face only. Crying, but comforts in mother's arm. No vomiting. Peripheral eosinophilia persists Reassessment this afternoon, found him in no pain, watching movies. Actually has had no further stools since rounds (were awaiting stools for additional stool collections) Exam: BP 103/53 Pulse 68 Temp 96 ??F Resp 16 Wt 37.2 kg (82 lb 0.2 oz) BMI 17.14 kg/m2 GEN: awake, alert, interactive with exam generally in no acute distress, but did have episode of chest pain during in no acute distress HEENT: sclera anicteric, mucus membranes moist, no oral lesion CV: regular rate and rhythm without murmur CHEST: did report some pain with palpation to chest wall during episode of chest pain LUNGS: clear to auscultation bilaterally, equal aeration bilat ABD: soft, minimall tender to RUQ, or distended, no organomegaly, bowel sounds present EXT: warm and well perfused NEURO: no obvious deficits PSYCH: appropriate mentation for age; cries anxious during pain episodes Lab/Other Information Component Name 11/13/11 0449 11/13/11 0449 11/09/11 1902 WBC 12.8 -- -- RBC 4.64 -- -- HGB 14.0 -- -- HCT 39.6 -- -- MCV 85.3 -- -- MCH 30.2 -- -- MCHC 35.4 -- -- RDW -- -- -- PLTCOUNT 257 -- -- BANDMANPCT -- -- 2 SEGMANPCT -- -- -- LYMPHMANPCT -- 25 -- MONOMANPCT -- 4 -- EOSMANPCT -- 39* -- ATYPLYMPHMAN -- 6 -- METAMANPCT -- -- -- MYELOMANPCT -- -- -- PROMYELOMAN -- -- -- BLASTMANPCT -- -- -- IMMATUREPCT -- -- -- PLASMAMANPCT -- -- -- OTHERMANPCT -- -- -- NRBC -- -- -- WBCCORRECT -- -- -- RBCMORPH -- -- -- WBCMORPH -- Normal -- IMPRESSION: Patient Active Problem List Diagnoses ??? Abdominal pain, diarrhea, emesis ??? ADHD (attention deficit hyperactivity disorder) ??? Eosinophilia ??? Flushing DDx of diarrhea, abdominal pain and peripheral eosinophilia still suggestive of parastitic infections. Other etiologies of chronic diarrhea are being considered but seems less likely in absence of overt colitis symptoms. Pain also may be mutlifactorial and perhaps anxiety component.. Given constellation of symptoms still requires further workup PLAN: 1. Repeat stool ova and parasites (only done X 1) 2. Await lab eval for toxocara (viscera larva migrans); continue presumptive tx 3. Stool calprotectin - if elevated and still symptomatic may consider endoscopy. If elevated but symptoms improve may be used to follow in the future to ensure trend downwards 3. Stool [id number] - protein losses may explain low IgG 4. Ok for Levsin prn abdominal pain 5. EKG today given chest pain, but this may be musculoskeletal (reviewed results - appears normal to me, resident to ask for rn intern read) Patient Active Problem List Diagnoses ??? Abdominal pain, diarrhea, emesis ??? ADHD (attention deficit hyperactivity disorder) ??? Eosinophilia See resident's note of 11/13/2011 for further details. Kenzie Cobb MD * Myah Aj MD - 11/12/2011 7:02 PM CDT Called to bedside for pt c/o flushing and diffuse migrating abdominal pain, nausea. Per RN and family, similar to event this afternoon. Pt unable to describe type, severity, or quality of abdominal pain, but says it is all over his abdomen. Speaking in complete phrases to mom. Denies respiratory distress, cough, palpitations, itching, shortness of breath, trouble swallowing, change of voice, change of vision, or other c/o. Has rec'd benadryl 25mg (1515PM)and morphine 2mg (1545PM) with some relief of previous event. Now with mom, dad, both grandparents at bedside, pt c/o flushing from head to hips, diffuse abdominal pain, curled in left lateral decubitus position. VSS. AF. BP, RR, P reassuring. Pt got up to have a bowel movement. No gait abnormality. Walks upright without difficulty. Exam significant for --CTA b/l. No tachypnea, crackles, wheezing, or course breath sounds. --mild diffuse flat erythema from b/l facial cheeks to anterior abdomen. Not appreciable on back. Non pruritic, nonpalpable, no discrete lesions. --abdominal pain appears diffuse, TTP most prominent at RLQ and epigastric. Appears to have intermittent flares of pain during exam without association with position. Negative psoas and obturator. +BS all 4 quadrants. Soft, ND abdomen. NTTP CVA b/l. No HSM. No masses palpable. --FROM. No jt pain or swelling. No appreciable association of flushing with drug or food at this time. Food exacerbates abdominal pain, but also has abdominal pain without discrete association with food. Unclear etiology at this time. CXR and KUB unremarkable. Abdominal U/S planned in AM. For the time being, anxiety from both pt and family appears to significant complicate pain. Will give ativan 1mg x 1, and consider morphine 2mg x 1 prn severe abdominal pain recurrence. Benadryl and zofran to continue q6prn flushing/nausea and nausea/vomiting, respectively. Nexium IV to continue. Will continue to monitor. Update: After ativan 1mg x 1, pt sleeping soundly. VSS, reassuring. Parents left for night. Grandparents atbedside. Will continue to monitor. * Augusto Murguia RN - 11/12/2011 6:[address] Aj notified of pt feeling flush, abdominal pain, same incident as Dr. Doshi witnessed at 1500 (see his previous note). She will come to the bedside to examine pt * Ezekiel Doshi MD - 11/12/2011 3:51 PM CDT Called to bedside to assess pt for increased abdominal pain. Pt states that he feels like he has a gas bubble in his stomach making his pain worse. Attempted Tylenol without relief. He has attempted to stool without result. On assessment, pt with tenderness over epigastrum and RUQ, no peritoneal signs, no organomegaly, hyperactive bowel sounds. Heart RRR, lungs clear, normal CR. During assessment, pt developed flushing to cheeks b/l with subsequent blotchy erythema to neck and upper chest. Noraised urticaria. This resolved within ~ 2 minutes, however, he then developed acute left sided chest wall pain he described as sharp and intense along with his previous epigastric pain. Tender to palpation over left chest wall. Heart still RRR, normal CR, lungs clear without stridor. Pt has had 2 previous episodes of similar flushing during this admission associated with increased pain and/or nausea. Family also states he had similar episodes at home. Gave Benadryl 25 mg IV although flushing and erythema had by then resolved. Pt's pain continued to escalate and he became very anxious, crying. Attempted to give 5 mg Oxycodone, however, pt threw up after trying to swallow pill. Gave 2 mg IV Morphine for escalating severe pain. Pt calmed shortly thereafter and pain significantly improved. On reassessment ~ 20 minutes after Morphine given, pt sitting up in bed in no distress. States his pain is almost completely gone . Discussed with Dr. Miller. Will obtain CXR PA and lateral given c/ochest pain along with obstructive series. Will also plan for complete abdominal US tomorrow. Pt to be NPO after 0000. Continue to monitor. * Selma Mccoy MD - 11/12/2011 11:49 AM CDT Pediatric Resident Daily Progress Note Lavelle M Alec 11/12/2011 11:50 AM Hospital Day: 3 Clinical Course Pt is clinically slightly better. Vomiting is resolved but diarrhea and abdominal pain is still notresolved. Pt c/o epigastric and RUQ pain. Pt had 11 water b/ms since the last 24 hours. No blood instools. Appetite is not so good but pt is drinking enough. No acute events overnight. Objective Vitals BP: 110/59 mmHg (11/12/11848), Temp: 97.8 ??F (11/12/11848), Pulse: 80 (11/12/11848), Resp: 20 (11/12/11848), SpO2: 98 % (11/11/11 1944), Height: 147.3 cm (4' 10 ) (11/09/11 1427), Weight: 37.2 kg (82 lb 0.2 oz) (11/09/11 1427) Temp (24hrs), Av ??F, Min:97.6 ??F, Max:98.4 ??F 11/10 07 - 11/11 0659 In: 1746.3 [P.O.:900; I.V.:846.3] Out: 1825 [Urine:1825] Exam: General: well appearing Neck: supple, non-tender, with full ROM, and no lymphadenopathy Cardiovascular: regular rate and rhythm, normal S1 and S2, no murmurs Chest: breath sounds symmetrical without rales or wheezes Abdomen: soft, non-tender, point tenderness in the RUQ and no hepatosplenomegaly or masses Lab/Other Information -Make sure send out labs( toxocara ab, trichinella IgG ab test, Isohemeagglutinins and mmunoglobulin ab panel) recommended by Infectious ds are sent tomorrow morning - Fu cbc in am to monitor eosinphilia and wbc counts Active Hospital Problems Diagnoses Date Noted ??? Eosinophilia 11/10/2011 With oone month hx of watery diarrhea with significant eosinophilia on cbc. 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 Plan - Make sure send out labs( toxocara ab, trichinella IgG ab test, Isohemeagglutinins and mmunoglobulin ab panel) recommended by Infectious ds are sent tomorrow morning -Flagyl 250 po TID -Mebendazole 100mg po BID - Repeat cbc in am ??? Abdominal pain, diarrhea, emesis 11/09/2011 11 yo male with diarrhea preceding epigastric/RUQ pain with associated nausea, emesis, and dehydration. OSH labs include normal CMP, amylase, lipase. Stool bacterial culture, giardia, cryptosporidia,leukocytes all negative. KUB normal. Received fluid bolus in ED. Suspect infectious trigger for gastritis. Plan: - Nexium IV - MIVF - Regular diet, bowel rest - Zofran PRN - Prn Tylenol for mild pain and Prn Oxycodon for moderate pain -Flagyl 250 po TID -Mebendazole 100mg po BID - Make sure send out labs( toxocara ab, trichinella IgG ab test, Isohemeagglutinins and mmunoglobulin ab panel) recommended by Infectious ds are sent Tomorrow morning ??? ADHD (attention deficit hyperactivity disorder) 11/09/2011 - Continue home Adderall and Vyvanse Selma Mccoy MD [phone] * Stuart Miller MD - 11/12/2011 10:06 AM CDT Pediatric Attending Daily Progress Note 11/12/2011 10:06 AM Hospital Day: 3 I have interviewed the patient/family and examined this patient. I have reviewed and confirmed/revised the findings of the resident. My findings (todd elements and supplemental information) are as follows: Clinical Course No more vomiting, but still has abd pain and a lot of diarrhea. On IVF. Able to take PO. Exam: BP 110/59 Pulse 80 Temp 97.8 ??F Resp 20 Wt 37.2 kg (82 lb 0.2 oz) BMI 17.14 kg/m2 Patient is alert, no distress. No rash, no jaundice. DIANE EOMI. Ears normal, nose clear. Head atraumatic. Neck supple, no adenopathy. Mouth normal, no exudate. Lungs BS equal, no wheezes. Heart RR, no gallops. Well perfused, equal pulses. Abdomen soft, non-tender, no masses, no organomegaly. Extremities no clubbing, cyanosis, or edema. Normal tone Back non-tender, no lesions. Grossly intact cranial nerves. Lab/Other Information F/u CBC Pending. Presumptive treatment for visceral larva migrans Other diagnostic tests pending. Check f/u CBC and cont support. If he does not improve we will consider endosocpy. Active Hospital Problems Diagnoses Date Noted ??? 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 ??? Abdominal pain, diarrhea, emesis 11/09/2011 - Nexium IV - MIVF - Zofran PRN -Flagyl 250 po TID -Mebendazole 100mg po BID ??? ADHD (attention deficit hyperactivity disorder) 11/09/2011 - Continue home Adderall and Vyvanse See resident's note of 11/12/2011 for further details. Stuart Miller MD [phone] * Carissa Augustinherminio Melton - 11/11/2011 11:28 AM CDT Pediatric Resident Daily Progress Note Lavelle Lynnette Alec 11/11/2011 11:28 AM Hospital Day: 2 Clinical Course Overall patient has slightly improved since the last note. Pt reports that he is still having waterstools but they may be less and more formed. PT also still has some RUQ pain. He had some emesis with his dose of flagyl but was given benadryl IV that seemed to help. He was switched to flagyl pillsand tolerated that just fine. Objective Vitals BP: 87/48 mmHg (11/11/11810), Temp: 96.4 ??F (11/11/11810), Pulse: 80 (11/11/11810), Resp: 24 (11/11/11 0811), SpO2: 99 % (11/10/11 1550), Height: 147.3 cm (4' 10 ) (11/09/11 1427), Weight: 37.2 kg (82 lb 0.2 oz) (11/09/11 1427) Temp (24hrs), Av.6 ??F, Min:96.4 ??F, Max:99.2 ??F 11/09 699 - 11/10 0659 In: 2778 [P.O.:1260; I.V.:1518] Out: 835 [Urine:835] Exam: General: well appearing Neck: supple, non-tender, with full ROM, and no lymphadenopathy Cardiovascular: regular rate and rhythm, normal S1 and S2, no murmurs Chest: breath sounds symmetrical without rales or wheezes Abdomen: soft, non-tender, point tenderness in the RUQ and no hepatosplenomegaly or masses Lab/Other Information Active Hospital Problems Diagnoses Date Noted ??? 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 ??? Abdominal pain, diarrhea, emesis 11/09/2011 11 yo male with diarrhea preceding epigastric/RUQ pain with associated nausea, emesis, and dehydration. OSH labs include normal CMP, amylase, lipase. Stool bacterial culture, giardia, cryptosporidia,leukocytes all negative. KUB normal. Received fluid bolus in ED. Suspect infectious trigger for gastritis. - Nexium IV - MIVF - Clear diet, bowel rest - Zofran PRN -Flagyl 250 po TID -Mebendazole 100mg po BID ??? ADHD (attention deficit hyperactivity disorder) 11/09/2011 - Continue home Adderall and Vyvanse Shailesh Augustin * Stuart Miller MD - 11/11/2011 10:10 AM CDT Pediatric Attending Daily Progress Note 11/11/2011 10:10 AM Hospital Day: 2 I have interviewed the patient/family and examined this patient. I have reviewed and confirmed/revised the findings of the resident. My findings (todd elements and supplemental information) are as follows: Clinical Course Vomit last night. This am eating better with less pain. Still diarrhea. Exam: BP 87/48 Pulse 80 Temp 96.4 ??F Resp 24 Wt 37.2 kg (82 lb 0.2 oz) BMI 17.14 kg/m2 Patient is alert, no distress. No rash, no jaundice. DIANE EOMI. Ears normal, nose clear. Head atraumatic. Neck supple, no adenopathy. Mouth normal, no exudate. Well perfused, equal pulses. Abdomen soft, non-tender, no masses, no organomegaly. Extremities no clubbing, cyanosis, or edema. Normal tone Back non-tender, no lesions. Grossly intact cranial nerves. Lab/Other Information Parasite titers pending. Patient Active Problem List Diagnoses ??? Abdominal pain, diarrhea, emesis ??? ADHD (attention deficit hyperactivity disorder) ??? Eosinophilia Plan 1. Cont on mebendazole for 5 d course. Cont PPI and support with IVF. 2. Diagnostic tests as per ID recs. See resident's note of 11/11/2011 for further details. Stuart Miller MD [phone] * Jeff Bess MD - 11/10/2011 10:34 PM CDT Night Float Cross Cover: Called by RN that Lavelle was feeling flushed and nauseous after Flagyl dose. Had already received Zofran. Per family at bedside, Lavelle was feeling sick in his stomach even prior to his Flagyl dose, but the Flagyl made it worse. On exam, patient is leaning over a bucket, flushed in his cheeks, not actively vomiting, abdominal exam is normal- no tenderness, normal BS, vitals reviewed and stable, oral exam normal, no swelling of the lips. Ordered one dose of Benadryl 25 mg IV. Reassessed patient 25 minutes after Benadryl, feels better, nausea resolved, sitting on bed, smiling and talking. Per request flagyl changed to tab form (from liquid). Patient was receiving 200 mg Flagyl susp q8, changed to 250 mg PO Tab q8hrs. Jeff Bess PGY 3 Internal Medicine-Pediatrics [phone] * Shailesh Augustin 11/10/2011 12:48 PM CDT Pediatric Resident Daily Progress Note Lavelle Reyes 11/10/2011 12:48 PM Hospital Day: 1 Clinical Course Overall patient has improved since the last note. Pt still had 5-6 episodes of watery diarrhea overnight but no episodes of nausea or vomiting. Objective Vitals BP: 83/45 mmHg (11/10/11802), Temp: 98 ??F (11/10/11802), Pulse: 64 (11/10/11802), Resp: 20 (11/10/11802), SpO2: 99 % (11/10/11 0356), Height: 147.3 cm (4' 10 ) (11/09/11 1427), Weight: 37.2 kg (82 lb 0.2 oz) (11/09/11 1427) Temp (24hrs), Av.9 ??F, Min:96.8 ??F, Max:98.4 ??F 11/08 0700 - 11/09 0659 In: 1386 [I.V.:1386] Out: - Exam: General: well appearing Neck: supple, non-tender, with full ROM, and no lymphadenopathy Cardiovascular: regular rate and rhythm, normal S1 and S2, no murmurs Chest: breath sounds symmetrical without rales or wheezes Abdomen: soft, non-tender, non-distended, point tenderness in the RUQ and no hepatosplenomegaly or masses Musculoskeletal: No clubbing, cyanosis or edema Skin: no rashes Neuro: alert, oriented, normal speech, no focal findings or movement disorder noted Lab/Other Information Component Name 11/09/11 1902 WBC 16.1* RBC 5.01 HGB 15.2 HCT 42.1 MCV 84.0 MCH 30.3 MCHC 36.1 RDW -- PLTCOUNT 265 BANDMANPCT 2 SEGMANPCT -- LYMPHMANPCT 17* MONOMANPCT 5 EOSMANPCT 33* ATYPLYMPHMAN -- METAMANPCT -- MYELOMANPCT -- PROMYELOMAN -- BLASTMANPCT -- IMMATUREPCT -- PLASMAMANPCT -- OTHERMANPCT -- NRBC -- WBCCORRECT -- RBCMORPH -- WBCMORPH Normal Component Name 11/09/11 1901 SODIUM 141 POTASSIUM 4.2 CHLORIDE 107 CO2 16* BUN 8.7 CREATININE 0.50* GLUCOSE -- CALCIUM 8.96 ALBUMIN 3.3 ALKPHOS 165 ALT 31 AST 38* TBIL 0.2* TPROT 5.5* EGFR -- Active Hospital Problems Diagnoses Date Noted ??? 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 ??? Abdominal pain, diarrhea, emesis 11/09/2011 11 yo male with diarrhea preceding epigastric/RUQ pain with associated nausea, emesis, and dehydration. OSH labs include normal CMP, amylase, lipase. Stool bacterial culture, giardia, cryptosporidia,leukocytes all negative. KUB normal. Received fluid bolus in ED. Suspect infectious trigger for gastritis. - Nexium IV - MIVF - Clear diet, bowel rest - Zofran PRN ??? ADHD (attention deficit hyperactivity disorder) 11/09/2011 - Continue home Adderall and Vyvanse Shailesh Augustin documented in this encounter H&P Notes * Stuart Miller MD - 11/10/2011 10:02 AM CDT Images from the original note were not included. Pediatric Attending Admission Note Admit Date: 11/09/2011 3:15 PM I have interviewed the patient/family and examined this patient. I have reviewed and confirmed/revised the findings of the resident. My findings (todd elements and supplemental information) are as follows: Chief Complaint abd pain, vomiting, diarrhea History of Present Illness Lavelle Reyes is a 11 y.o. male who had vacation in [place] and now has 1mo of diarrhea. Also abd pain and some vomiting. No blood no bile, no fever. Up and drinking, walking. He has many dogs he seens. No ill contacts. At outside ER he was given flagyl for presumptive giardia Rx. No change with this in his Sx. Other Pertinent History ADHD Exam BP 83/45 Pulse 64 Temp 98 ??F Resp 20 Wt 37.2 kg (82 lb 0.2 oz) BMI 17.14 kg/m2 Patient is alert, no distress. No rash, no jaundice. DIANE EOMI. Ears normal, nose clear. Head atraumatic. Neck supple, no adenopathy. Mouth normal, no exudate. Lungs BS equal, no wheezes. Heart RR, no gallops. Well perfused, equal pulses. Abdomen soft, non-tender, no masses, no organomegaly. Extremities no clubbing, cyanosis, or edema. Normal tone, normal gait for age. Back non-tender, no lesions. Grossly intact cranial nerves. Lab/Other Information WBC 16k, 33% eo Patient Active Problem List Diagnoses ??? Abdominal pain, diarrhea, emesis ??? ADHD (attention deficit hyperactivity disorder) ??? 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 Giardia is possible, but seldom has this high eo and he was already given flagyl with no response. Human ascaris, trichinosis, or other parasites don't fit this presentation well. Eo diseases such as hyper eo syndrome or malignanacy are possible but unlikely. Plan 1. IVF support, with IV nexium since he is vomiting. 2. Slow PO. 3. Treat with mebendazole, and consult with ID. See resident's H&P further details. Stuart Miller MD [phone] CC: Lanny Hewitt [address] [id number] * Ezekiel Doshi MD - 11/09/2011 8:28 PM CDT Pediatric Resident Admission Note Admit Date: 11/09/2011 3:15 PM Chief Complaint Abdominal pain, diarrhea, emesis History of Present Illness Lavelle Reyes is a 11 y.o. male who presents with abdominal pain and diarrhea. Starting ~ 3-4 weeks ago, Lavelle began having watery diarrhea with 3-4 episodes per day. He did not have fever or URI symptoms at this time, nor were any other family members affected. This has continued, however, and 1week ago he began to develop recurrent emesis. He has had almost daily episodes of NBNB emesis now p articularly after eating with associated nausea. Along with this, he has been c/o abdominal pain inthe epigastric area with sporadic bouts of pain. Nothing seems to improve this pain, but food makesit worse. He was seen at an OSH ED earlier this week for these symptoms and had stool studies performed at that time and was discharged on Flagyl. His symptoms persisted, however, leading to further evaluation at the same ED where parents state he received IVF and was again discharged. He then saw his PMD who suggested he stop the Flagyl. Today, as his symptoms persisted and he has had decreased PO intake and UOP, his PMD instructed him to be evaluated here. Overall, his diarrhea is slightly improved recently, but his nausea with emesis and abdominal pain persist. He does not have a previous hx of abdominal pain, diarrhea, or emesis. He denies bloody stools, weight loss, joint pain or swelling, mouth sores. Past Medical History No history on file. Past Medical History Diagnosis Date ??? ADHD (attention deficit hyperactivity disorder) Past Surgical History Procedure Date ??? Orchiopexy Immunizations Immunization status: stated as current, but no records available. Allergies Allergies Allergen Reactions ??? Eggs Family History Family History Problem Relation Age of Onset ??? GERD - Gastroesophageal Reflux Disease Father Social History History Social History Narrative Lives with mother, father, brother, and sister. Attends 7th grade. [employer]. No recent foreign travel or camping. Review of Systems Review of Systems Constitutional: Positive for appetite change. Negative for fever and unexpected weight change. HENT: Negative for sore throat. Eyes: Negative for discharge. Respiratory: Negative for cough. Cardiovascular: Negative for chest pain. Gastrointestinal: Positive for nausea, vomiting, abdominal pain and diarrhea. Negative for blood instool. Genitourinary: Positive for decreased urine volume. Negative for dysuria and hematuria. Musculoskeletal: Negative for back pain and gait problem. Skin: Negative for rash. Neurological: Negative for headaches. Exam Vitals BP: 111/50 mmHg (11/09/112143) Temp: 98.2 ??F (11/09/112143) Pulse: 96 (11/09/112143) Resp: 18 (11/09/112143) SpO2: 94 % (11/09/112143) Height: 147.3 cm (4' 10 ) (11/09/111426) Weight: 37.2 kg (82 lb 0.2 oz) (11/09/111426) General: in no acute distress Oropharynx: moist mucous membranes, no pharyngeal erythema, no tonsilar enlargement Cardiovascular: regular rate and rhythm, normal S1 and S2, no murmurs Chest: breath sounds symmetrical without rales or wheezes, good air movement and no retractions or tracheal tugging Abdomen: soft, non-distended, no hepatosplenomegaly or masses and tenderness to epigastric area andRUQ : circumsized, Jonnie stage: Pubic Hair - III and Genitalia - II, normal perianal exam Skin: no rashes Labs/Objective Recent Results (from the past 24 hour(s)) COMPREHENSIVE METABOLIC PANEL Collection Time 11/09/11 7:01 PM Component Value Range Glucose Random 137 (*) 70-105 (mg/dL) Sodium 141 136-145 (mmol/L) Potassium 4.2 3.5-5.1 (mmol/L) Chloride 107 98-107 (mmol/L) CO2 16 (*) 20-28 (mmol/L) Calcium 8.96 8.92-10.32 (mg/dL) Anion Gap 18 5-20 (mmol/L) BUN 8.7 6.1-21.0 (mg/dL) Creatinine 0.50 (*) 0.62-1.00 (mg/dL) eGFR by MDRD eGFR by MDRD AFR AMER Alk Phos 165 100-390 (U/L) ALT/SGPT 31 6-46 (U/L) AST/SGOT 38 (*) 3-35 (U/L) Protein Total 5.5 (*) 6.4-8.5 (gm/dL) Albumin 3.3 3.3-5.0 (gm/dL) Bili Total 0.2 (*) 0.3-1.2 (mg/dL) CBC W AUTO DIFFERENTIAL Collection Time 11/09/11 7:02 PM Component Value Range WBC 16.1 (*) 4.5-14.5 (x10^9/L) RBC 5.01 4.00-5.20 (x10^12/L) Hgb 15.2 11.5-15.5 (g/dL) HCT 42.1 35.0-45.0 (%) MCV 84.0 77.0-95.0 (fl) MCH 30.3 25.0-33.0 (pg) MCHC 36.1 31.0-37.0 (gm/dL) RDW-CV 13.0 11.5-14.0 (%) MPV 10.9 (*) 6.0-9.5 (fl) Hemo Reflex Status Manual Diff to follow Plt Ct 265 100-400 (x10^9/L) DIFFERENTIAL MANUAL Collection Time 11/09/11 7:02 PM Component Value Range WBC Auto 16.1 Neutro Manual 43 24-66 (%) Lymph Manual 17 (*) 22-61 (%) [place] Manual 5 3-15 (%) Eos Manual 33 (*) 0-10 (%) Band Manual 2 Cells Counted 100 Plt Est Adequate platelets WBC Morph Normal Poikilocytosis Occasional Active Hospital Problems Diagnoses Date Noted ??? Abdominal pain, diarrhea, emesis 11/09/2011 11 yo male with diarrhea preceding epigastric/RUQ pain with associated nausea, emesis, and dehydration. Received fluid bolus in ED. Suspect infectious trigger for gastritis vs IBS (no previous episodes). Less likely IBD with normal growth and pubertal development. - Nexium IV - MIVF - Clear diet - Zofran PRN - Obtain OSH stool studies ??? ADHD (attention deficit hyperactivity disorder) 11/09/2011 - Continue home Adderall and Vyvanse Ezekiel Doshi MD [phone] CC: Lanny Hewitt [address] [facility] [address] / [facility] [id number] documented in this encounter Procedure Notes * Document, Scanned - 12/11/2011 9:11 PM CDTAssociated Order(s): PATHOLOGY/CYTOLOGY REPORT ORDER * Document, Scanned - 12/11/2011 9:11 PM CDTAssociated Order(s): LAB RESULTS ORDER * Document, Scanned - 12/11/2011 6:50 PM CDTAssociated Order(s): LAB RESULTS ORDER * Document, Scanned - 11/30/2011 10:38 AM CDTAssociated Order(s): LAB RESULTS ORDER * Document, Scanned - 11/27/2011 7:41 AM CDTAssociated Order(s): LAB RESULTS ORDER * Document, Scanned - 11/23/2011 8:21 AM CDTAssociated Order(s): LAB RESULTS ORDER * Document, Scanned - 11/23/2011 8:21 AM CDTAssociated Order(s): LAB RESULTS ORDER * Document, Scanned - 11/23/2011 8:21 AM CDTAssociated Order(s): PATHOLOGY/CYTOLOGY REPORT ORDER * Document, Scanned - 11/23/2011 8:21 AM CDTAssociated Order(s): IMAGING/RADIOLOGY/XRAY RESULTS ORDER * Document, Scanned - 11/23/2011 8:21 AM CDTAssociated Order(s): CARDIAC EKG ORDER * Farhana Perez MD - 11/16/2011 6:00 PM CDTProcedure(s): BONE MARROW BIOPSY Consent for the procedure had been previously obtained. Patient was brought to the endoscopy suite and sedated by anesthesia. Bone marrow aspirate and biopsy The patient was prepped and draped in the usual sterile fashion and positioned with the right side up. After identifying the superior posterior iliac spine, and 1% buffered lidocaine was injected at the periosteum, a bone marrow aspirate needle was used to enter the bone marrow space via the right posterior iliac wing. Approximately 4mL of marrow were aspirated. A Snare-coil bone marrow biopsy needle was then used to enter the same marrow space, and an adequate core sample was obtained. The needle was removed, pressure was applied and the area was dressed with gauze. Procedure was well-tolerated; no complications. Minimal blood loss. Marrow aspirates were sent for slide analysis, flow cytometry, and cytogenetics. * Kenzie Cobb MD - 11/16/2011 5:19 PM CDTAssociated Order(s): ENDOSCOPY, COLON, DIAGNOSTIC * Kenzie Cobb MD - 11/16/2011 5:00 PM CDTAssociated Order(s): EGD * Document, Scanned - 11/13/2011 5:24 PM CDTAssociated Order(s): EKG 15-LEAD * Document, Scanned - 11/13/2011 11:59 AM CDTAssociated Order(s): EKG 15-LEAD documented in this encounter Consult Notes * Yanely Baron, INCLUSION MANAGER - 11/20/2011 11:48 AM CDTAssociated Order(s): IP CONSULT TO FLOOR BROKER Social Service Consult Reason for Referral: Family in need of assistance with paperwork and letters for employers and school. Sources of Information: Reviewed medical record, and interviewed parents on TCU. Diagnosis and Relevant History: Diarrhea. Lavelle was admitted 11/08, for abdominal pain, vomiting, diarrhea that had been going on for several weeks. Family Profile: Lavelle lives with both parents, Maria G and Saleem Reyes, a 16 year old brother and 10 year old sister in [place], [place], which is near [place]. Mother is employed as a scientific technical writer at [employer] in [place], [place]. Dad is in school at [employer]. Both parents have extended family in the area that have been helping out with their other children while they're at [facility] with Lavelle. Lavelle's health plan is [facility] which is supplemented by [place] Medicaid. Observations and Assessment: 11 year old hospitalized for for 11 days now for GI problems. Family with limited resources, requesting meal tickets taking time off of work and school to be with Lavelle. Parents requesting letters that Lavelle's been hospitalized and that they've needed to be here, as well as assistance with FMLA forms. Plan: HUDSON explained to parents that they do not qualify for ongoing meal ticket support, as they live [place] miles from [facility], but did provide each parent with one $5 meal ticket on 11/18/09 because they've exhaused their current resources. SW spoke with parents about parent refrigerator and microwave in 2nd floor waiting room, [facility], and encouraged them to have family members bring them food from home. SW completed one letter for mother and one for father, per their request. Originals given to parents, copies placed in hard chart. HUDSON contacted GI nurse, Barb Tristan at extension [phone], regarding mom's FMLA forms. SW placing themin hard chart, at Barb's request, and she will complete them on 11/20 and return them to mother. SW to follow for support and discharge planning. Yanely Baron LCSW [phone] * Farhana Perez MD - 11/16/2011 12:48 PM CDTAssociated Order(s): IP CONSULT TO PEDIATRIC HEMATOLOGY/ONCOLOGY Hematology/Oncology Consult Note 11/16/2011 Lavelle Reyes PCP: Lanny Hewitt Reason for referral: eosinophilia, diarrhea, abd pain History of present illness: 11 year old with PMH of ADHD who was admitted 11/09/2011 for eval of 4wk h/o diarrhea, vomiting and more recent onset of RUQ abd pain. Diarrhea began ~4 weeks ago - diarrhea 5-6 times a day, watery, not bloody, no mucous. Associated with abdominal pain in the RUQ and epigastric area. He was seen in ED of OSH, received course of flagyl without any improvement. 1 week ago he began having episodes of vomiting and hives/flushing whichstarted first in the face and spread down to his abdomen. The hives/flushing last 30min to 2hrs, itchy, resolve with benadryl. Has episodes now ~1-2x/day, most recently yesterday. Flushing episodes are usu associated w/ upset stomach, followed by excessive fatigue once episodes resolve. Has remained afeb since onset of current illness. No weight loss, occ sweating, restless legs whilesleeping, occ muscle cramps. No LAD. CBC's have documented elev WBC w/ rising eosinophils, for which FORTUNATO was consulted to rule-out leukemia. During current hospitalization he has received morphine for abdominal pain, and is on albendazole and flagyl but without any significant improvement. Undergoing endoscopy today. Past Medical History: ADHD - on Vyvanse and Adderal at home 1yo - surgery for undescended testicle Hx of egg allergy when he was 1 year old (abdominal pain and vomiting) but eats cake and products where the egg is included. H/o exercise induced asthma which is well controlled with albuterol prn. Family Medical History: Maternal FHx of several family members w/ adult onset cancers. No FHx of childhood cancers. Older brother, younger sister - both healthy Allergies Allergen Reactions ??? Eggs Other Egg yolks--cause migraines OK with egg whites and can have small amounts yolk if cooked in foods No current facility-administered medications on file prior to encounter. No current outpatient prescriptions on file prior to encounter. Social History: Lives w/ both parents, 2 siblings Review of Systems: 1) General Fever: [...] Nutritional Status good Physical Exam Constitutional: BP 92/58 Pulse 66 Temp 97.2 ??F Resp 20 Ht 1.473 m (4' 10 ) Wt 37.2 kg (82 lb 0.2 oz) BMI 17.14 kg/m2 SpO2 99% BSA (Calculated): 1.23 General Appearance: No acute distress, alert, cooperative, well-appearing Head: No nasal congestion or discharge Skin: [...] Imaging Studies Recent Results (from the past 72 hour(s)) O+P PANEL Collection Time 11/13/11 3:11 PM Component Value Range Source Ref Lab Comment Comment Direct Wet Mount Concentrate Wet Mount Concentrate Formalin NO ova and parasites seen. Trichrome Stain NO ova and parasites seen. O+P Notification Add'l Comment Comment Value: ONLY 1 O+P EXAM PER 24 HOURS - MAXIMUM OF 3 O+P EXAMS PER PATIENT WILL BE EVALUATED. FECAL LEUKOCYTES Collection Time 11/13/11 3:12 PM Component Value Range WBC Feces/HPF No Fecal WBC's seen (none) DIFFERENTIAL MANUAL Collection Time 11/15/11 4:51 AM Component Value Range WBC Auto 14.6 Neutro Manual 24 24-66 (%) Lymph Manual 26 22-61 (%) [place] Manual 4 3-15 (%) Eos Manual 40 (*) 0-10 (%) Baso Manual 1 0-2 (%) Atyp Lymph Manual 5 Cells Counted 100 Plt Est Normal RBC Morph Normal WBC Morph Normal CBC W AUTO DIFFERENTIAL Collection Time 11/15/11 4:51 AM Component Value Range WBC 14.6 (*) 4.5-14.5 (x10^9/L) RBC 4.68 4.00-5.20 (x10^12/L) Hgb 14.0 11.5-15.5 (g/dL) HCT 39.9 35.0-45.0 (%) MCV 85.3 77.0-95.0 (fl) MCH 29.9 25.0-33.0 (pg) MCHC 35.1 31.0-37.0 (gm/dL) RDW-CV 12.9 11.5-14.0 (%) MPV 10.4 (*) 6.0-9.5 (fl) Hemo Reflex Status Manual Diff to follow Plt Ct 267 100-400 (x10^9/L) BASIC METABOLIC PANEL (CALCIUM TOTAL) Collection Time 11/15/11 4:52 PM Component Value Range Glucose 103 70-105 (mg/dL) Sodium 139 136-145 (mmol/L) Potassium 3.8 3.5-5.1 (mmol/L) Chloride 109 (*) 98-107 (mmol/L) CO2 20 20-28 (mmol/L) Calcium 8.76 (*) 8.92-10.32 (mg/dL) Anion Gap 10 5-20 (mmol/L) BUN 5.1 (*) 6.1-21.0 (mg/dL) Creatinine 0.50 (*) 0.62-1.00 (mg/dL) eGFR by MDRD eGFR by MDRD AFR AMER 11/09 - stool O+P neg Procedures Bone marrow aspirate and biopsy - see separate proedure note Assessment 11yo Cauc boy admitted for 4wk h/o diarrhea, some nausea, and RUQ abd pain. Recently having episodes of flushing/hives. Significant eosinophilia on recent CBC's. Low IgG noted on Ig panel. Non-malignant causes of eosinophilia include parasitic infections (usually helminthic, with associated leukocytosis), allergy, hypersensitivity reactions, and hypereosinophilic syndrome. Malignant causes include Hodgkins lymphoma, T- or more rarely B-cell non-Hodgkins lymphoma, JMML, ALL, and a rare condition known as eosinophilic leukemia (a subtype of type M4 AML, acute myelomonocytic leukemia with eosinophilia, as well as chronic eosinophilic leukemia (JANIA)). The rare M4Eo subtype of AML is strongly associated with alterations of chromosome 16, most commonly inv(16)([id number]). Cases of ALL occurring in association with hypereosinophilia have been reported, and in rare cases, eosinophilia has preceded the diagnosis of ALL by many months. ALL occurring with hypereosinophilia also has an associated characteristic translocation, t(5;14). JMML (juvenile myelomonocytic leukemia) can also occasionally present with eosinophilia and has associated known chromosomal translocations. This is a more common diagnosis in the age group. Although eosinophilia can be among the laboratory abnormalities seen in Hodgkin's lymphoma, patients with Hodgkin's typically have lymphadenopathy, which Lavelle does not appear to have. JANIA is associated w/ characteristic genetic translocations, microdeletions that result in fusion with -PDGFRA (Zacarias Brock and Florence Lovell, Curr Opinion Hematol, 2007). Plan - bone marrow aspirate and biopsy today to rule-out leukemia - preliminary review by hemepath shows no signif increase in marrow blasts. Although there are signif # of eos in marrow, they are NL in appearance, not dysplastic. - cytogenetics and final leukemia flow cytometry pending - will d/w cytogenetics to FISH for the known genetic mutations that can result in clonal eosinophilia - Hold off on starting steroids until a clonal/malignant cause for eosinophilia has been definitively ruled out - if abdominal CT is planned as part of w/u of his diarrhea and abd pain, please obtain chest CT aswell * Jw Salcedo MD - 11/10/2011 1:09 PM CDTAssociated Order(s): IP CONSULT TO PEDIATRIC INFECTIOUS DISEASE Date: 11-10-11 Infectious Diseases Consult Note Lavelle Reyes is a 11-year old White male referred to our service for recommendations regarding evaluation and treatment for a recent illness characterized by persistent diarrhea and marked peripheraleosinophilia. To review his history in brief, Lavelle was in his normal state of generally good health until about four weeks ago when he had the onset of watery diarrhea without fever. The diarrhea has reportedly persisted on an almost daily basis since that time with three or four loose stools perday. Over the last week or so, he has also developed nausea and vomiting as well as more pronounced epigastric pain. No blood has ever been observed in the stool according to both Lavelle and his family. He was seen at an outside hospital twice this past week and had a small panel of laboratory studies performed that included a complete blood count and stool exam for giardia and cryptosporidia. The CBC reported was notable for eosinophilia, but otherwise normal, and the stool studies were negative. Lavelle was prescribed a short course of oral metronidazole that did little to improve his symptoms. He was seen by his primary care physician who advised Lavelle to discontinue the metronidazole and was ultimately referred to [facility] Emergency Room for further evaluation and treatment. Lavelle [place] parents and [place]. He spends a good deal of time outdoors and he has very close contact with dogs in the two households that he frequents. He has no other significant animal contact nor has he traveled out of the country recently. About a week orso prior to onset of this symptoms he did travel to the [facility] in [place] and spent a good dealof time outdoors and barefoot, particularly on the beach. He reports no skin rashes of late, he eats almost exclusively store bought food, and he has not eaten wild game any time recently. No other family members or other contacts have been ill with similar symptoms recently. With the exception of the above noted problems, Lavelle has been in generally excellent health and is growing and developing normally for age. On exam at the time of our evaluation, we found Lavelle to be an alert, active young man in no acutedistress. Her skin was warm and dry without rashes. A few small cervical lymph nodes were present bilaterally. He was normocephalic with clear sclerae and conjunctivae, normal tympanic membranes bilaterally, patent nares, and an oropharynx without erythema or exudates. His lungs were clear to auscultation bilaterally. His cardiac exam demonstrated a regular rate and rhythm with normal S1 and S2 and no murmur. His abdomen was soft and with mild epigastric and right upper quadrant tenderness, butwithout masses or organomegaly. His extremities were without joint swelling or tenderness. His neurological exam was normal with intact cranial nerves, good strength and sensation throughout, and good balance and coordination for age. Impression: A young man with a four-week history of gastrointestinal symptoms, consisting primarilyof persistent watery diarrhea and more recent nausea, vomiting and abdominal pain. From an infectious disease standpoint, there are several possibilities to consider: (a) Visceral larval migrans is one of the most common parasitic infections causing significant peripheral eosinophilia in pediatric patients in this country and Lavelle does report close dog contact, but it is rather unusual in an older patient like him; (b) Trichinosis is a protozoan infection transmitted by eating inadequately cooked pork or wild game, but Lavelle???s only history of eating wild game involved deer meat several mo nths ago; (c) Roundworm infections including ascariasis and hookworm infection are also in the differential, although they too are rather uncommon among older patients in the [place] - however,the history of walking barefoot in the [place] does increase the risk of hookworm disease; (d) Non-infectious causes for illness also need to be considered including eosinophilic gastroenteritis and inflammatory bowel disease. Recommendations: (1) Stool examination for ova and parasites; (2) Serum isohemagglutinins and serumimmunoglobulins - elevated levels could be indicative of visceral larval migrans; (3) Toxocara canis serum antibodies; (4) Trichinella spiralis serum antibodies; (5) Would favor holding off on anti-he lminthic therapy until some additional supportive data is available. documented in this encounter ED Notes * Antonette Gann MD - 11/09/2011 4:10 PM CDT Provider contact with the patient: 11/09/2011 16:10 Lavelle Junior Alec [id number] [facility] EM[facility]GENCY DE[facility] History Chief Complaint Patient presents with ??? Diarrhea Diarrhea and vomiting x2 weeks, was seen at [facility] and given Flagyl for possible parasite.PCP took off flagyl and ran blood tests, still awaiting results. Denies fever. C/o abdominal pain after eating I have read the resident/WEBSPHERE PORTAL DEVELOPER history. Unless appended by me below, I agree with findings as documented. HPI Comments: 11 yr old male with 4 wk h/o diarrhea started while travelling in [place], initially watery, NB no mucus, occasional undigested food, he took imodium with diarrhea with no relief. Had lower abd pain since last week on both lower abdomen, especially prior to bowel movement and goes away after passing stool. Also gets upper abdomen in the left side more than right on and off. Vomitingx 1wk, once or twice a week, occurs upto one hr after eating, NBNB. This week also his skin looks yellow while his eyes not yellow. No fever, no URI. Had slight cough. No other resp symptoms. No painelsewhere. No rash. Went to [facility] ER twice and PCP once and has had labs done and was told as WBC high and was told as possible traveller's diarrhea, parasites and was started on flagyl 500 tid which was stopped by PCP. Stool studies done also, no result available to parents. PCP concerned for hepatitis. 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 BP 108/67 Pulse 96 Temp 97.6 ??F Resp 20 Wt 37.2 kg (82 lb 0.2 oz) Physical Exam I have reviewed the resident/WEBSPHERE PORTAL DEVELOPER physical exam. Unless appended by me below, I agree with the PE as documented. Physical Exam Nursing note and vitals reviewed. Constitutional: He appears well-developed and well-nourished. He is active. No distress. HENT: Right Ear: Tympanic membrane normal. Left Ear: Tympanic membrane normal. Nose: No nasal discharge. Mouth/Throat: Mucous membranes are moist. No tonsillar exudate. Oropharynx is clear. Pharynx is normal. Eyes: Conjunctivae are normal. Pupils are equal, round, and reactive to light. Right eye exhibits no discharge. Left eye exhibits no discharge. Neck: Normal range of motion. Neck supple. Cardiovascular: Normal rate, regular rhythm, S1 normal and S2 normal. No murmur heard. Pulmonary/Chest: Effort normal and breath sounds normal. No stridor. No respiratory distress. Air movement is not decreased. He has no wheezes. He exhibits no retraction. Abdominal: Soft. Bowel sounds are normal. He exhibits no distension. There is no hepatosplenomegaly. There is tenderness. There is no rebound and no guarding. No hernia. Tenderness in the Right upper quadrant, no hepatomegaly felt. Neurological: He is alert. Skin: Skin is warm and dry. No petechiae, no purpura and no rash noted. He is not diaphoretic. No cyanosis. No jaundice or pallor. Procedures Procedures Progress Notes ED Course Resident d/w PCP - stool cx negative, labs unremarkable from OSH Labs reviewed from PCP D/w GI, to do labs here Low co2. In view of persistent diarrhea and abdominal pain and tender RUQ, admit for further eval, bowel rest - resident d/w GI Dr Miller Medical Decision Making I have personally seen and examined this patient. I have fully participated in the care of this patient. I have reviewed all pertinent clinical information available to me during this encounter, including history, physical exam and plan. I have reviewed nursing notes, available labs and radiographic studies. Clinical Impression Final diagnoses: Diarrhea Right upper quadrant abdominal pain Vomiting Clinical dehydration * Mignon Champagne MD - 11/09/2011 3:23 PM CDT Images from the original note were not included. EMERGENCY DEPARTMENT 11/09/[address] Redd primary provider on file. We had the pleasure of caring for your patient, Lavelle Reyes in our emergency department on 11/09/2011. A note from the provider(s) who cared for your patient is attached. Should you wish to access any laboratory results, please call . Should you wish to access any radiology results, please call , option 3. In addition, you can access patient information 24 hours a day, from any computer, through [employer], the online version of our electronic medical record. If you would like to use this service, please call Sonya Hernandez, Connectivity Coordinator, at . We appreciate the opportunity to care for your patients. If you would like additional information, please call the emergency department directly at . Sincerely, Mignon Champagne MD Division of Emergency Medicine [facility], [place] [facility] [place] DESIGNATED EMERGENCY DEPARTMENT Provider contact with the patient: 11/09/2011 15:23 Lavelle Reyes [id number] [facility] EMERGENCY DEPT History Chief Complaint Patient presents with ??? Diarrhea Diarrhea and vomiting x2 weeks, was seen at [facility] and given Flagyl for possible parasite.PCP took off flagyl and ran blood tests, still awaiting results. Denies fever. C/o abdominal pain after eating HPI Comments: 11 yo male presents with a 4 week history of diarrhea and a 1 week history of nausea/vomiting and abdominal pain. Came to ED today as he felt like he was unable to keep anything down. Diarrhea started 4 weeks ago, when the patient and his family were traveling in [place]. Having several loose/wattery stools per day during this time, no blood or mucus. Father states that it seems to be worsening - now having diarrhea containing undigested food within 1/2 hour of eating. Have beengiving Imodium through this whole time with no relief. Nausea/vomiting start one week ago, all NBNB, 1-2 episodes per day. Has been able to keep some PO intake down most days, but like he was unable to do so today. Had only tried eating once today beforecoming to the ED, and vomited soon after. Abdominal pain has been intermittent x 1 week. Cramping pain across both lower quadrants before having a bowel movement, relieved with passing stool. Similar pain in upper quadrants before vomiting, also improves after. Also has had episodes of severe generalized abdominal pain, no precipitating factor. Father states that the patient has been doubled over crying with these episodes. Patient stillable to sleep, though, and pain may or may not be present on awakening. No fevers with this illness, and no weight loss has been noted. Denied other symptoms - see ROS. Was attending school for the initially, but out for the entire past week. Seen at at [facility] ED for this issue twice this week - 3 days ago and 2 days ago. Multiple labs done, mostly not reported.CBC with WBC count of 16,000. Different assessment each visit - travelers diarrhea, parasite. Started on Flagyl 500 mg TID on second visit. Seen by PMD yesterday. Parents report concern for hepatitisA at that time - were noting yellowing of the patient's skin (although not eyes), PMD noted tender hepatomegaly. Further labs done. Flagyl stopped by PMD as patient did not seem to be tolerating it. PMH of ADHD, and stable doses of Vyvanse and Adderall for years. Was taking during this summer. Parents deny that the patient has ever had abdominal pain or N/V associated with his ADHD medications. PSH: orchipexy at age 1 Immunizations stated to be up to date, parents uncertain if Hep A included. Past Medical History Diagnosis Date ??? ADHD (attention deficit hyperactivity disorder) No past surgical history on file. History Social History ??? Marital Status: Single Spouse Name: N/A Number of Children: N/A ??? Years of Education: N/A Occupational History ??? Not on file. Social History Main Topics ??? Smoking status: Not on file ??? Smokeless tobacco: Not on file ??? Alcohol Use: ??? Drug Use: ??? Sexually Active: Not on file Other Topics Concern ??? Not on file Social History Narrative ??? No narrative on file Medications Current Outpatient Prescriptions Medication Sig Dispense Refill ??? lisdexamfetamine (VYVANSE) 40 MG capsule Take 40 mg by mouth once daily. ??? amphetamine-dextroamphetamine (ADDERALL) 5 MG tablet Take 5 mg by mouth every morning. Review of Systems Review of Systems Constitutional: Positive for activity change and appetite change. Negative for fever and unexpectedweight change. HENT: Negative. Eyes: Negative. No scleral icterus reported Respiratory: Negative. Cardiovascular: Negative. Gastrointestinal: Positive for nausea, vomiting, abdominal pain and diarrhea. Negative for constipation and blood in stool. Genitourinary: Positive for decreased urine volume. Musculoskeletal: Negative. Skin: Yellowing of skin reported Neurological: Negative. Psychiatric/Behavioral: Negative. BP 108/67 Pulse 96 Temp 97.6 ??F Resp 20 Wt 37.2 kg (82 lb 0.2 oz) Physical Exam Physical Exam Constitutional: He appears well-developed and well-nourished. No distress. HENT: Nose: No nasal discharge. Mouth/Throat: Mucous membranes are moist. Oropharynx is clear. Eyes: EOM are normal. Pupils are equal, round, and reactive to light. Right eye exhibits no discharge. Left eye exhibits no discharge. No scleral icterus Neck: Normal range of motion. Neck supple. No adenopathy. Cardiovascular: Normal rate, regular rhythm, S1 normal and S2 normal. No murmur heard. Pulmonary/Chest: Effort normal and breath sounds normal. There is normal air entry. Abdominal: Soft. He exhibits no distension and no mass. Bowel sounds are increased. There is no hepatosplenomegaly. There is tenderness. There is no rebound and no guarding. Tender RUQ Musculoskeletal: Normal range of motion. Neurological: He is alert. Skin: Skin is warm. Capillary refill takes less than 3 seconds. No jaundice. Procedures Procedures Lab/SPO2 Interpretation Progress Notes ED Course Patient with stable vital signs throughout ED course. Spoke with patient's PMD, reviewed OSH records. Notable for CBC with WBC count of 16,000, but normal CMP, amylase, lipase. Stool bacterial culture, giardia, cryptosporidia, leukocytes all negative. KUB normal. Repeated CBC and CMP while patient in ED - WBC count still 16,000, CMP with CO2 of 16, otherwise basically normal. Also discussed patient with GI attending, Dr. Miller. Etiology of patient's symptoms not entirely clear at this point, suspecting infectious. In discussion with ED attending, Dr. Gann, decision made that the patient should be admitted for IV hydration and bowel rest. NS bolus given while patient still in ED. Medical Decision Making Clinical Impression Final diagnoses: Diarrhea Vomiting Abdominal pain documented in this encounter Miscellaneous Notes * Miscellaneous Scans - Document, Scanned - 11/30/2011 10:38 AM CDT * Miscellaneous Scans - Document, Scanned - 11/23/2011 8:21 AM CDT * Miscellaneous Scans - Document, Scanned - 11/23/2011 8:21 AM CDT * Miscellaneous Scans - Document, Scanned - 11/23/2011 8:21 AM CDT * Miscellaneous Scans - Document, Scanned - 11/23/2011 8:21 AM CDT documented in this encounter Plan of Treatment Not on file documented as of this encounter Procedures Procedure Name Priority Date/Time Associated Diagnosis Comments PATHOLOGY/CYTOLOGY REPORT ORDER 12/11/2011 9:11 PM CDT LAB RESULTS ORDER 12/11/2011 9:11 PM CDT IMAGING/RADIOLOGY/XRAY RESUL TS ORDER 11/23/2011 8:21 AM CDT CARDIAC EKG ORDER 11/23/2011 8:21 AM CDT DIFFERENTIAL MANUAL Routine 11/22/2011 5:23 AM CDT CBC W AUTO DIFFERENTIAL Routine 11/22/19 12 5:23 AM CDT CATECHOLAMINES URINE FRACTIONATED TIMED Routine 11/21/2011 6:27 PM CDT ECHO CONSULT - PEDIATRIC Routine 012 1:40 PM CDT DIFFERENTIAL MANUAL Routine 11/21/2011 4:40 AM CDT CBC W AUTO DIFFERENTIAL Routine 11/21/19 12 4:40 AM CDT VASOACTIVE INTESTINAL PEPTIDE Add on 2:30 PM CDT ALLERGEN PEDIATRIC FOOD PROFILE Routine 11/20/2011 2:09 PM CDT DIFFERENTIAL MANUAL Routine 11/20/2011 7:39 AM CDT CBC W AUTO DIFFERENTIAL Routine 11/20/19 12 7:[address] CHEST ABDOMEN PELVIS W CONT Routine 0 11/19/2011 3:54 PM CDT Abdominal pain, diarrhea, emesis Eosinophilia Presumed EE Flushing CATECHOLAMINES BLOOD FRACTIONATED Routine 11/19/2011 12:03 PM CDT HYDROXYINDOLACETIC ACID 5 UR INE TIMED Routine 11/19/2011 12:03 PM CDT DIFFERENTIAL MANUAL Routine 11/19/2011 5:20 AM CDT CBC W AUTO DIFFERENTIAL Routine 11/19/19 12 5:20 AM CDT DIFFERENTIAL MANUAL Routine 11/18/2011 5:40 AM CDT CBC W AUTO DIFFERENTIAL Routine 11/18/19 12 5:40 AM CDT DIFFERENTIAL MANUAL Routine 11/17/2011 5:55 AM CDT CBC W AUTO DIFFERENTIAL Routine 11/17/19 12 5:55 AM CDT EOSINOPHIL URINE SMEAR Routine 2 10:14 PM CDT URINALYSIS REFLEX TO [facility] OPI NO CULTURE Routine 11/16/2011 10:13 PM CDT URINE MICROSCOPIC ONLY Routine 2 10:13 PM CDT BIOPSY BONE MARROW 11/16/2011 8:00 PM CDT Diarrhea COLONOSCOPY 11/16/2011 8:00 PM CDT Diarrhea ESOPHAGOGASTRODUODENOSCOPY ( EGD) BIOPSY 11/16/2011 8:00 PM CDT Diarrhea ENDOSCOPY, COLON, DIAGNOSTIC Routine 09/2011 5:19 PM CDT EGD Routine 11/16/2011 5:01 PM CDT LEUKEMIA PANEL Routine 11/16/2011 3:42 PM CDT PATHOLOGY TISSUE EXAM (STL) STAT 09/2011 3:30 PM CDT BONE MARROW BIOPSY (STL) Routine 012 3:00 PM CDT URIC ACID BLOOD STAT 11/16/2011 3:00 PM CDT C-REACTIVE PROTEIN Routine 11/16/2011 3:00 PM CDT LUC BLOOD SCREEN W/REFLEX TITER Routine 11/16/2011 3:00 PM CDT ERYTHROCYTE SEDIMENTATION RATE Routine 0 11/16/2011 3:00 PM CDT DIFFERENTIAL MANUAL Routine 11/16/2011 3:00 PM CDT CBC W AUTO DIFFERENTIAL Routine 11/16/19 12 3:00 PM CDT LDH BLOOD STAT 11/16/2011 3:00 PM CDT IGE BLOOD Routine 11/16/2011 3:00 PM CDT CYTOGENETICS CANCER PANEL Routine 2011 12:00 PM CDT BASIC METABOLIC PANEL (CALCI UM TOTAL) Routine 11/15/2011 4:52 PM CDT O+P PANEL Routine 11/15/2011 11:07 AM CDT ENDOSCOPY, COLON, DIAGNOSTIC Routine 08/2011 10:57 AM CDT EGD Routine 11/15/2011 10:57 AM CDT EGD Routine 11/15/2011 9:42 AM CDT CELIAC DISEASE DUAL AG SCREE N W REFLEX AM Draw 11/15/2011 4:51 AM CDT TISSUE TRANSGLUTAMINASE AB IGA AM Draw 0 11/15/2011 4:51 AM CDT CBC W AUTO DIFFERENTIAL AM Draw 11/15/19 12 4:51 AM CDT DEAMIDATED GLIADIN PEPTIDE ( DGP) AB IGA Routine 11/15/2011 4:51 AM CDT DIFFERENTIAL MANUAL Routine 11/15/2011 4:51 AM CDT LAB MISC TEST Routine 11/13/2011 4:57 PM CDT [id number] FECES Routine 2011 4:57 PM CDT FECAL LEUKOCYTES Routine 11/13/2011 3:12 PM CDT CULTURE STOOL PANEL Routine 11/13/2011 3:11 PM CDT O+P PANEL Routine 11/13/2011 3:11 PM CDT EKG 15-LEAD Routine 11/13/2011 11:04 AM CDT US ABDOMEN COMPLETE Routine 11/13/2011 9:18 AM CDT Diarrhea Abdominal pain, diarrhea, emesis Eosinophilia LAB MISC TEST Routine 11/13/2011 4:49 AM CDT TOXOCARA ANTIBODY BLOOD Routine 11/13/19 12 4:49 AM CDT ISOHEMAGGLUTININ TITER Routine 2 4:49 AM CDT CBC W AUTO DIFFERENTIAL Routine 11/13/19 12 4:49 AM CDT IMMUNOGLOBULINS IGG/IGM/IGA PANEL Routine 11/13/2011 4:49 AM CDT DIFFERENTIAL MANUAL Routine 11/13/2011 4:49 AM CDT XR ABD OBSTRUCTION SERIES 2VW Routine 5:13 PM CDT Diarrhea Abdominal pain, diarrhea, emesis Eosinophilia XR CHEST 2VW Routine 11/12/2011 5:13 PM CDT Diarrhea Abdominal pain, diarrhea, emesis Eosinophilia O+P PANEL Routine 11/10/2011 10:03 PM CDT DIFFERENTIAL MANUAL STAT 11/09/2011 7:02 PM CDT CBC W AUTO DIFFERENTIAL STAT 11/09/19 12 7:02 PM CDT COMPREHENSIVE METABOLIC PANEL STAT 7:01 PM CDT documented in this encounter Results * PATHOLOGY/CYTOLOGY REPORT ORDER (12/11/2011 9:11 PM CDT) Narrative Transcriptions Document, Scanned - 11/23/2011 8:21 AM CDT Document, Scanned - 12/11/2011 9:11 PM CDT Scanned Document LAB - PATHOLOGY/CYTO LOGY ORDERABLES * LAB RESULTS ORDER (12/11/2011 9:11 PM CDT) Narrative Transcriptions Document, Scanned - 11/23/2011 8:21 AM CDT Document, Scanned - 11/23/2011 8:21 AM CDT Document, Scanned - 11/27/2011 7:41 AM CDT Document, Scanned - 11/30/2011 10:38 AM CDT Document, Scanned - 12/11/2011 6:50 PM CDT Document, Scanned - 12/11/2011 9:11 PM CDT Scanned Document LAB - THERAPEUTIC DR UG MONITORING ORDERABLES * CARDIAC EKG ORDER (11/23/2011 8:21 AM CDT) Narrative Transcriptions Document, Scanned - 11/23/2011 8:21 AM CDT Scanned Document CARDIAC SERVICES ORD ERABLES * IMAGING/RADIOLOGY/XRAY RESULTS ORDER (11/23/2011 8:21 AM CDT) Anatomical Region Laterality Modality Other Narrative Transcriptions Document, Scanned - 11/23/2011 8:21 AM CDT Scanned Document IMAGING * (ABNORMAL) DIFFERENTIAL MANUAL (11/22/2011 5:23 AM CDT) WBC Auto 7.7 X(10)9/L 11/22/2011 9:53 AM CDT [facility] Neutrophil % Manual 72(H) 24 - 66 % 11/22/2011 9:53 AM CDT [facility] Lymphocytes % Manual 23 22 - 61 % 11/22/2011 9:53 AM CDT [facility] Monocytes % Manual 4 3 - 15 % 2011 9:53 AM CDT [facility] Band % Manual 1 % 11/22/2011 9:53 AM CDT [facility] Cells Counted 100 # cells 11/22/2011 9:53 AM CDT [facility] Platelet Estimation Normal 11/22/2011 9:53 AM CDT [facility] WBC Morph Normal 11/22/2011 9:53 AM CDT [facility] Anisocytosis Slight 11/22/2011 9:53 AM CDT [facility] Poikilocytosis Slight 11/22/2011 9:53 AM CDT [facility] Spherocytes Few 11/22/2011 9:53 AM CDT [facility] Blood specimen (specimen) BLOOD SPECIMEN / Unknown 11/22/2011 5:23 AM CDT 11/22/2011 5:43 AM CDT Selma Mccoy MD LAB - HEMATOLOGY ORD ERABLES Performing Organization Address City/State/[facility] Co de Phone Number [facility] [place] [address] * (ABNORMAL) CBC W AUTO DIFFERENTIAL (11/22/2011 5:23 AM CDT) WBC 7.7 4.5 - 14.5 x10^9/L 11/22/2011 9:53 AM CDT [facility] RBC 4.43 4.00 - 5.20 x10^12/L 11/22/2011 9:53 AM CDT [facility] Hemoglobin 13.2 11.5 - 15.5 g/dL 11/22/2011 9:53 AM CDT [facility] Hematocrit 37.5 35.0 - 45.0 % 11/22/2011 9:53 AM CDT [facility] MCV 84.7 77.0 - 95.0 fl 11/22/2011 9:53 AM CDT [facility] MCH 29.8 25.0 - 33.0 pg 11/22/2011 9:53 AM CDT [facility] MCHC 35.2 31.0 - 37.0 gm/dL 11/22/2011 9:53 AM CDT [facility] RDW-CV 12.7 11.5 - 14.0 % 11/22/2011 9:53 AM CDT [facility] MPV 10.5(H) 6.0 - 9.5 fl 11/22/2011 9:53 AM CDT [facility] Hematology Reflex Status Manual Diff to follow 11/22/2011 9:53 AM T [facility] Platelet Count 316 100 - 400 x10^9/L 11/22/2011 9:53 AM T [facility] Blood specimen (specimen) BLOOD SPECIMEN / Unknown 11/22/2011 5:23 AM CDT 11/22/2011 5:43 AM CDT Selma Mccoy MD LAB - HEMATOLOGY ORD ERABLES [facility] [place] [address] * CATECHOLAMINES URINE FRACTIONATED (11/21/2011 6:27 PM T) Dopamine 24 Hour Urine Not Applicable ug/d 11/24/2011 6:27 AM T [facility] Comment: REFERENCE INTERVAL: Dopamine, Urine - ug/d Access complete set of age- and/or gender-specific reference intervals for this test in the [facility] Test Directory ([facility]). Collection Time Hours Random hr 11/24/2011 6:27 AM T [facility] Volume 24 Hour Urine Random mL 11/24/2011 6:27 AM T [facility] Epinephrine Urine ug/L 6 ug/L 11/24/2011 6:27 AM T [facility] Norepinephrine Urine 24 ug/L 11/24/2011 6:27 AM T [facility] Dopamine Urine 187 ug/L 11/24/2011 6:27 AM T [facility] Epinephrine Urine ug/g PAYABLE PROCESSOR 9 3 - 58 ug/g PAYABLE PROCESSOR 11/24/2011 6:27 AM T [facility] Epinephrine 24 Hour Urine Not Applicable ug/d 11/24/2011 6:27 AM T [facility] Comment: REFERENCE INTERVAL: Epinephrine, Urine - ug/d Access complete set of age- and/or gender-specific reference intervals for this test in the [facility] Test Directory ([facility]). Norepinephrine Urine ug/g PAYABLE PROCESSOR 36 4 - 105 ug/g PAYABLE PROCESSOR 11/24/2011 6:27 AM T [facility] Norepinephrine 24 Hour Urine Not Applicable ug/d 11/24/2011 6:27 AM T [facility] Comment: REFERENCE INTERVAL: Norepinephrine, Urine - ug/d Access complete set of age- and/or gender-specific reference intervals for this test in the [facility] Test Directory ([facility]). Dopamine PAYABLE PROCESSOR Urine 279 120 - 450 ug/g PAYABLE PROCESSOR 11/24/2011 6:27 AM CDT [facility] Interpretation Catecholamines Urine See Note 11/24/2011 6:27 AM CDT [facility] Comment: TEST INFORMATION: Catecholamines Panel, Urine Free [...] reference intervals for this test in the [facility] Test Directory ([facility]). Creatinine Urine 67 mg/dL 11/24/19 6:27 AM T [facility] Creatinine 24 Hour Urine Not Applicable 300 - 1300 mg/d 11/24/2011 6:27 AM T [facility] Urine specimen (specimen) TIMED URINE SPECIMEN / Unknown 11/21/2011 6:27 PM CDT 11/21/2011 8:59 PM CDT Selma Mccoy MD LAB - URINE CHEMISTR Y ORDERABLES [facility] [address] [place] [address] * ECHO CONSULT - PEDIATRIC (11/21/2011 1:40 PM CDT) 11/21/2011 1:40 PM CDT Narrative [facility] - 11/21/2011 3:08 PM CDT , Transthoracic Echocardiogram 2D, M-mode, Doppler, and Color Doppler Name: LAVELLE REYES MR #: [id number] Study date: 11/21/2011 Age: 11 years : 2000 Gender: Male Ht: 58 in / 147.3 cm Wt: 81.8 lb / 37.2 kg BSA: 1.25 m?? 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 Allergies: EGGS Procedure: The procedure was performed in the [...] no evidence for stenosis. There was no regurgitation. Right ventricle: The cavity size was normal. Wall thickness was normal. Systolic function was normal. RV outflow tract: There was no obstruction. Left ventricle: The cavity size was normal. Wall thickness was normal. Systolic function was normal. There were no regional wall motion abnormalities. LV outflow tract: There was no outflow obstruction. Ventricular septum: Thickness was normal. The septum was intact. Pulmonic valve: Leaflets exhibited normal thickness and normal cuspal separation. Doppler: The transpulmonic velocity was within the normal range. There was trivial regurgitation. Aortic valve: The valve was trileaflet. Leaflets [...] were normal. Right coronary artery: Flow was not clearly seen. Left main coronary artery: Flow was not clearly seen. Left anterior descending: Flow was not clearly seen. Extracardiac shunting: No ductal shunt was detected by Doppler. Pericardium: There was no pericardial effusion. The pericardium was normal in appearance. Impressions: - ??Diagnoses: Normal echocardiogram. - ??Summary: The heart is structurally normal with normal biventricular systolic function. There is no pathologic valvular regurgitation. Prepared and signed by Anthony Sanchez MD Signed 11/21/2011 15:07:57 System measurement tables CW TR Vmax: 2.4 m/s TR maxP.1 mmHg MM %FS: 42.4 % Ao Diam: 26.5 mm EDV(Teich): 64.4 ml EF(Teich): 74.2 % ESV(Teich): 16.6 ml IVSd: 6.2 mm IVSs: 10.5 mm LA Diam: 21.5 mm LA/Ao: 0.8 LVIDd: 38.6 mm LVIDs: 22.2 mm LVPWd: 5.1 mm LVPWs: 11.7 mm LVd Mass: 56 g LVd Mass (ASE): 56.2 g LVd Mass Ind (ASE): 45 g/m2 LVd Mass Index: 44.8 g/m2 LVs Mass: 66.4 g LVs Mass (ASE): 64.6 g LVs Mass Ind (ASE): 51.7 g/m2 LVs Mass Index: 53.1 g/m2 SV(Teich): 47.7 ml Procedure Note 11/21/2011 , Transthoracic Echocardiogram 2D, M-mode, Doppler, and Color Doppler Name: LAVELLE REYES MR #: [id number] Study date: 11/21/2011 Age: 11 years : 2000 Gender: Male Ht: 58 in / 147.3 cm Wt: 81.8 lb / 37.2 kg BSA: 1.25 m?? 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 Allergies: EGGS Procedure: The procedure was performed in the [...] no evidence for stenosis. There was no regurgitation. Right ventricle: The cavity size was normal. Wall thickness was normal. Systolic function was normal. RV outflow tract: There was no obstruction. Left ventricle: The cavity size was normal. Wall thickness was normal. Systolic function was normal. There were no regional wall motion abnormalities. LV outflow tract: There was no outflow obstruction. Ventricular septum: Thickness was normal. The septum was intact. Pulmonic valve: Leaflets exhibited normal thickness and normal cuspal separation. Doppler: The transpulmonic velocity was within the normal range. There was trivial regurgitation. Aortic valve: The valve was trileaflet. Leaflets [...] were normal. Right coronary artery: Flow was not clearly seen. Left main coronary artery: Flow was not clearly seen. Left anterior descending: Flow was not clearly seen. Extracardiac shunting: No ductal shunt was detected by Doppler. Pericardium: There was no pericardial effusion. The pericardium was normal in appearance. Impressions: - Diagnoses: Normal echocardiogram. - Summary: The heart is structurally normal with normal biventricular systolic function. There is no pathologic valvular regurgitation. Prepared and signed by Anthony Sanchez MD Signed 11/21/2011 15:07:57 System measurement tables CW TR Vmax: 2.4 m/s TR maxP.1 mmHg MM %FS: 42.4 % Ao Diam: 26.5 mm EDV(Teich): 64.4 ml EF(Teich): 74.2 % ESV(Teich): 16.6 ml IVSd: 6.2 mm IVSs: 10.5 mm LA Diam: 21.5 mm LA/Ao: 0.8 LVIDd: 38.6 mm LVIDs: 22.2 mm LVPWd: 5.1 mm LVPWs: 11.7 mm LVd Mass: 56 g LVd Mass (ASE): 56.2 g LVd Mass Ind (ASE): 45 g/m2 LVd Mass Index: 44.8 g/m2 LVs Mass: 66.4 g LVs Mass (ASE): 64.6 g LVs Mass Ind (ASE): 51.7 g/m2 LVs Mass Index: 53.1 g/m2 SV(Teich): 47.7 ml Selma Mccoy MD ECHO ORDERABLES [facility] [address] [place] [address] * (ABNORMAL) DIFFERENTIAL MANUAL (11/21/2011 4:40 AM CDT) WBC Auto 6.2 X(10)9/L 11/21/2011 7:07 AM CDT [facility] Neutrophil % Manual 70(H) 24 - 66 % 11/21/2011 7:07 AM CDT [facility] Lymphocytes % Manual 27 22 - 61 % 11/21/2011 7:07 AM CDT [facility] Monocytes % Manual 2(L) 3 - 15 % 2011 7:07 AM T [facility] Eosinophils % Manual 1 0 - 10 % 11/21/2011 7:07 AM T [facility] Cells Counted 100 # cells 11/21/2011 7:07 AM T [facility] Platelet Estimation Normal 11/21/2011 7:07 AM T [facility] WBC Morph Normal 11/21/2011 7:07 AM T [facility] Poikilocytosis Slight 11/21/2011 7:07 AM [facility] Blood specimen (specimen) BLOOD SPECIMEN / Unknown 11/21/2011 4:40 AM CDT 11/21/2011 4:54 AM CDT Selma Mccoy MD LAB - HEMATOLOGY ORD ERABLES Performing Organization Address City/State/[facility] Co de Phone Number [facility] [address] [place] [address] * (ABNORMAL) CBC W AUTO DIFFERENTIAL (11/21/2011 4:40 AM CDT) WBC 6.2 4.5 - 14.5 x10^9/L 11/21/2011 7:07 AM CDT [facility] RBC 4.61 4.00 - 5.20 x10^12/L 11/21/2011 7:07 AM T [facility] Hemoglobin 13.8 11.5 - 15.5 g/dL 11/21/2011 7:07 AM T [facility] Hematocrit 39.1 35.0 - 45.0 % 11/21/2011 7:07 AM T [facility] MCV 84.8 77.0 - 95.0 fl 11/21/2011 7:07 AM T [facility] MCH 29.9 25.0 - 33.0 pg 11/21/2011 7:07 AM CDT [facility] MCHC 35.3 31.0 - 37.0 gm/dL 11/21/2011 7:07 AM [facility] RDW-CV 12.8 11.5 - 14.0 % 11/21/2011 7:07 AM T [facility] MPV 10.4(H) 6.0 - 9.5 fl 11/21/2011 7:07 AM T [facility] Hematology Reflex Status Manual Diff to follow 11/21/2011 7:07 AM T [facility] Platelet Count 306 100 - 400 x10^9/L 11/21/2011 7:07 AM T [facility] Blood specimen (specimen) BLOOD SPECIMEN / Unknown 11/21/2011 4:40 AM CDT 11/21/2011 4:54 AM CDT Selma Mccoy MD LAB - HEMATOLOGY ORD ERABLES [facility] [address] [place] [address] * VASOACTIVE INTESTINE PEPTIDE (11/20/2011 2:30 PM CDT) Pathologist [facility] Vasoactive Intestinal Polypeptide 37 0 - 60 pg/mL 11/26/2011 1:37 PM CDT [facility] Comment: INTERPRETIVE INFORMATION: Vasoactive Intestinal Peptide This test was developed and its performance characteristics determined by [employer]. The U.S. Food and Drug Administration has [...] Perez MD LAB - CHEMISTRY ORD ERABLES [facility] [address] [place] [address] * (ABNORMAL) ALLERGEN PEDIATRIC FOOD I PROFILE (11/20/2011 2:09 PM CDT) Allergen Egg White 0.21 <=0.34 kU/L 11/22/2011 5:47 PM CDT [facility] Allergen Milk (Cow) 2.10(H) <=0.34 kU/L 11/22/2011 5:47 PM CDT [facility] Allergen Wheat 3.16(H) <=0.34 kU/L 11/22/2011 5:47 PM CDT [facility] Allergen Oat 0.46(H) <=0.34 kU/L 11/22/2011 5:47 PM CDT [facility] Allergen Soybean <0.10 <=0.34 kU/L 11/22/2011 5:47 PM CDT [facility] Immunocap Score See Note 2 5:47 PM CDT [facility] Comment: REFERENCE INTERVAL: Allergen, Interpretation [...] Hester MD LAB - CHEMISTRY O RDERABLES [facility] [address] [place] [address] * (ABNORMAL) DIFFERENTIAL MANUAL (11/20/2011 7:39 AM CDT) WBC Auto 12.7 X(10)9/L 11/20/2011 10:21 AM CDT [facility] Neutrophil % Manual 27 24 - 66 % 11/20/2011 10:21 AM CDT [facility] Lymphocytes % Manual 26 22 - 61 % 11/20/2011 10:21 AM CDT [facility] Monocytes % Manual 7 3 - 15 % 2011 10:21 AM T [facility] Eosinophils % Manual 40(H) 0 - 10 % 11/20/2011 10:21 AM T [facility] Cells Counted 100 # cells 11/20/2011 10:21 AM T [facility] WBC Morph Normal 11/20/2011 10:21 AM T [facility] Anisocytosis Slight 11/20/2011 10:21 AM T [facility] Poikilocytosis Slight 11/20/2011 10:21 AM T [facility] Ovalocytes Rare 11/20/2011 10:21 AM [facility] Blood specimen (specimen) BLOOD SPECIMEN / Unknown 11/20/2011 7:39 AM CDT 11/20/2011 8:23 AM CDT Selma Mccoy MD LAB - HEMATOLOGY ORD ERABLES Performing Organization Address City/State/[facility] Co de Phone Number [facility] [address] [place] [address] * (ABNORMAL) CBC W AUTO DIFFERENTIAL (11/20/2011 7:39 AM CDT) WBC 12.7 4.5 - 14.5 x10^9/L 11/20/2011 10:21 AM [facility] RBC 4.77 4.00 - 5.20 x10^12/L 11/20/2011 10:21 AM T [facility] Hemoglobin 14.1 11.5 - 15.5 g/dL 11/20/2011 10:21 AM [facility] Hematocrit 40.6 35.0 - 45.0 % 11/20/2011 10:21 AM [facility] MCV 85.1 77.0 - 95.0 fl 11/20/2011 10:21 AM [facility] MCH 29.6 25.0 - 33.0 pg 11/20/2011 10:21 AM T [facility] MCHC 34.7 31.0 - 37.0 gm/dL 11/20/2011 10:21 AM CDT [facility] RDW-CV 12.9 11.5 - 14.0 % 11/20/2011 10:21 AM CDT [facility] MPV 11.1(H) 6.0 - 9.5 fl 11/20/2011 10:21 AM CDT [facility] Hematology Reflex Status Manual Diff to follow 11/20/2011 10:21 AM CDT [facility] Platelet Count 297 100 - 400 x10^9/L 11/20/2011 10:21 AM T [facility] Blood specimen (specimen) BLOOD SPECIMEN / Unknown 11/20/2011 7:39 AM CDT 11/20/2011 8:23 AM CDT Selma Mccoy MD LAB - HEMATOLOGY ORD ERABLES [facility] [address] [place] [address] * CT THORAX ABDOMEN PELVIS W CONT [...] - 460 pg/mL 11/21/2011 6:50 AM CDT [facility] Dopamine Normal 0 - 20 pg/mL 11/21/2011 6:50 AM CDT [facility] Comment: Because of the small quantity of plasma received, a specimen dilution was made. At this dilution, dopamine was not detected and is considered normal. Interpretation Catecholamines See Note 11/21/2011 6:50 AM T [facility] Comment: Small increases in catecholamines (less [...] CDT Selma Mccoy MD LAB - CHEMISTRY ORDGeronimo ROBINS [facility] Organization Address City/State/ZIP Co de Phone Number [facility] [address] [place] [address] * HYDROXYINDOLACETIC ACID URINE TIMED (11/19/2011 12:03 PM CDT) 5-HIAA Urine 1.7 mg/L 11/22/2011 12:47 PM T [facility] Collection Time Hours Random hr 11/22/2011 12:47 PM [facility] Volume 24 Hour Urine 55 mL 11/22/2011 12:47 PM [facility] Creatinine Urine 84 mg/dL 11/22/19 12 12:47 PM [facility] Creatinine 24 Hour Urine Not Applicable 300 - 1300 mg/d 11/22/2011 12:47 PM [facility] 5-HIAA 24 Hour Urine Not Applicable 0 - 15 mg/d 11/22/2011 12:47 PM [facility] 5-HIAA mg/g PAYABLE PROCESSOR Urine 2 0 - 14 mg/g 11/22/2011 12:47 PM [facility] Interpretation 5-HIAA Urine Normal 11/22/2011 12:47 PM [facility] Comment: INTERPRETIVE INFORMATION: 5-Hydroxyindoleacetic Acid [...] URINE CHEMISTR Y ORDERABLES Performing Organization Address City/[facility]/ZIP Co de Phone Number [facility] [address] [place] [address] * (ABNORMAL) DIFFERENTIAL MANUAL (11/19/2011 5:20 AM CDT) WBC Auto 13.9 X(10)9/L 11/19/2011 8:21 AM T [facility] Neutrophil % Manual 30 24 - 66 % 11/19/2011 8:21 AM T [facility] Lymphocytes % Manual 40 22 - 61 % 11/19/2011 8:21 AM T [facility] Monocytes % Manual 2(L) 3 - 15 % 11/19/2011 8:21 AM T [facility] Eosinophils % Manual 26(H) 0 - 10 % 11/19/2011 8:21 AM [facility] Atypical Lymphocyte % Manual 1 % 11/19/2011 8:21 AM [facility] Band % Manual 1 % 11/19/2011 8:21 AM [facility] Cells Counted 100 # cells 11/19/2011 8:21 AM [facility] RBC Morphology Normal 11/19/2011 8:21 AM [facility] WBC Morph Normal 11/19/2011 8:21 AM T [facility] Blood specimen (specimen) BLOOD SPECIMEN / Unknown 11/19/2011 5:20 AM CDT 11/19/2011 5:35 AM CDT Selma Mccoy MD LAB - HEMATOLOGY ORD ERABLES [facility] [address] [place] [address] * (ABNORMAL) CBC W AUTO DIFFERENTIAL (11/19/2011 5:20 AM CDT) WBC 13.9 4.5 - 14.5 x10^9/L 11/19/2011 8:21 AM T [facility] RBC 4.68 4.00 - 5.20 x10^12/L 11/19/2011 8:21 AM T [facility] Hemoglobin 14.0 11.5 - 15.5 g/dL 11/19/2011 8:21 AM [facility] Hematocrit 39.8 35.0 - 45.0 % 11/19/2011 8:21 AM T [facility] MCV 85.0 77.0 - 95.0 fl 11/19/2011 8:21 AM T [facility] MCH 29.9 25.0 - 33.0 pg 11/19/2011 8:21 AM [facility] MCHC 35.2 31.0 - 37.0 gm/dL 11/19/2011 8:21 AM [facility] RDW-CV 13.0 11.5 - 14.0 % 11/19/2011 8:21 AM [facility] MPV 11.2(H) 6.0 - 9.5 fl 11/19/2011 8:21 AM [facility] Hematology Reflex Status Manual Diff to follow 11/19/2011 8:21 AM [facility] Platelet Count 284 100 - 400 x10^9/L 11/19/2011 8:21 AM [facility] Blood specimen (specimen) BLOOD SPECIMEN / Unknown 11/19/2011 5:20 AM CDT 11/19/2011 5:35 AM CDT Selma Mccoy MD LAB - HEMATOLOGY ORD ERABLES Performing Organization Address City/State/[facility] Co de Phone Number [facility] [address] [place] [address] * (ABNORMAL) DIFFERENTIAL MANUAL (11/18/2011 5:40 AM CDT) WBC Auto 11.6 X(10)9/L 11/18/2011 6:56 AM T [facility] Neutrophil % Manual 27 24 - 66 % 11/18/2011 6:56 AM T [facility] Lymphocytes % Manual 25 22 - 61 % 11/18/2011 6:56 AM T [facility] Monocytes % Manual 6 3 - 15 % 11/18/2011 6:56 AM CDT [facility] Eosinophils % Manual 38(H) 0 - 10 % 11/18/2011 6:56 AM CDT [facility] Atypical Lymphocyte % Manual 4 % 11/18/2011 6:56 AM CDT [facility] Cells Counted 100 # cells 11/18/2011 6:56 AM CDT [facility] Platelet Estimation Normal 11/18/2011 6:56 AM CDT [facility] RBC Morphology Normal 11/18/2011 6:56 AM CDT [facility] WBC Morph Normal 11/18/2011 6:56 AM CDT [facility] Blood specimen (specimen) BLOOD SPECIMEN / Unknown 11/18/2011 5:40 AM CDT 11/18/2011 5:49 AM CDT Selma Mccoy MD LAB - HEMATOLOGY ORD ERABLES Performing Organization Address City/State/[facility] Co de Phone Number [facility] [place] [address] * (ABNORMAL) CBC W AUTO DIFFERENTIAL (11/18/2011 5:40 AM CDT) WBC 11.6 4.5 - 14.5 x10^9/L 11/18/2011 6:56 AM CDT [facility] RBC 4.75 4.00 - 5.20 x10^12/L 11/18/2011 6:56 AM CDT [facility] Hemoglobin 14.2 11.5 - 15.5 g/dL 11/18/2011 6:56 AM CDT [facility] Hematocrit 40.7 35.0 - 45.0 % 11/18/2011 6:56 AM CDT [facility] MCV 85.7 77.0 - 95.0 fl 11/18/2011 6:56 AM CDT [facility] MCH 29.9 25.0 - 33.0 pg 11/18/2011 6:56 AM CDT [facility] MCHC 34.9 31.0 - 37.0 gm/dL 11/18/2011 6:56 AM CDT [facility] RDW-CV 13.1 11.5 - 14.0 % 11/18/2011 6:56 AM T [facility] MPV 10.6(H) 6.0 - 9.5 fl 11/18/2011 6:56 AM T [facility] Hematology Reflex Status Manual Diff to follow 11/18/2011 6:56 AM T [facility] Platelet Count 267 100 - 400 x10^9/L 11/18/2011 6:56 AM T [facility] Blood specimen (specimen) BLOOD SPECIMEN / Unknown 11/18/2011 5:40 AM CDT 11/18/2011 5:49 AM CDT Selma Mccoy MD LAB - HEMATOLOGY ORD ERABLES [facility] [address] [place] [address] * (ABNORMAL) DIFFERENTIAL MANUAL (11/17/2011 5:55 AM CDT) WBC Auto 16.9 X(10)9/L 11/17/2011 6:59 AM T [facility] Neutrophil % Manual 40 24 - 66 % 11/17/2011 6:59 AM T [facility] Lymphocytes % Manual 20(L) 22 - 61 % 11/17/2011 6:59 AM T [facility] Monocytes % Manual 7 3 - 15 % 2011 6:59 AM T [facility] Eosinophils % Manual 29(H) 0 - 10 % 11/17/2011 6:59 AM T [facility] Band % Manual 4 % 11/17/2011 6:59 AM T [facility] Cells Counted 100 # cells 11/17/2011 6:59 AM T [facility] Platelet Estimation Adequate platelets 11/17/2011 6:59 AM T [facility] WBC Morph Normal 11/17/2011 6:59 AM T [facility] Anisocytosis Slight 11/17/2011 6:59 AM T [facility] Poikilocytosis Slight 11/17/2011 6:59 AM T [facility] Blood specimen (specimen) BLOOD SPECIMEN / Unknown 11/17/2011 5:55 AM CDT 11/17/2011 6:00 AM CDT Selma Mccoy MD LAB - HEMATOLOGY ORD ERABLES [facility] [address] [place] [address] * (ABNORMAL) CBC W AUTO DIFFERENTIAL (11/17/2011 5:55 AM CDT) WBC 16.9(H) 4.5 - 14.5 x10^9/L 11/17/2011 6:58 AM CDT [facility] RBC 4.60 4.00 - 5.20 x10^12/L 11/17/2011 6:58 AM T [facility] Hemoglobin 14.0 11.5 - 15.5 g/dL 11/17/2011 6:58 AM T [facility] Hematocrit 39.0 35.0 - 45.0 % 11/17/2011 6:58 AM T [facility] MCV 84.8 77.0 - 95.0 fl 11/17/2011 6:58 AM T [facility] MCH 30.4 25.0 - 33.0 pg 11/17/2011 6:58 AM T [facility] MCHC 35.9 31.0 - 37.0 gm/dL 11/17/2011 6:58 AM T [facility] RDW-CV 13.2 11.5 - 14.0 % 11/17/2011 6:58 AM T [facility] MPV 11.2(H) 6.0 - 9.5 fl 11/17/2011 6:58 AM T [facility] Hematology Reflex Status Manual Diff to follow 11/17/2011 6:58 AM [facility] Platelet Count 232 100 - 400 x10^9/L 11/17/2011 6:58 AM T [facility] Blood specimen (specimen) BLOOD SPECIMEN / Unknown 11/17/2011 5:55 AM CDT 11/17/2011 6:00 AM CDT Selma Mccoy MD LAB - HEMATOLOGY ORD ERABLES [facility] [place] [address] * EOSINOPHIL URINE SMEAR (11/16/2011 10:14 PM CDT) Eosinophils Urine NONE SEEN NONE SEEN 11/16/2011 11:49 PM T [facility] Urine specimen (specimen) URINE / Unknown 11/16/2011 10:14 PM CDT 11/16/2011 10:35 PM CDT Jacqueline Virginia Leonarda [employer] CENTER MANAGER-PHYSICAL THERAPIST AIDE LAB - URINE SUSAN LUZ MARIA ORDERABLES Performing Organization Address City/[facility]/ZIP Co de Phone Number [facility] [address] [place] [address] * (ABNORMAL) URINALYSIS ROUTINE AUTO (11/16/2011 10:13 PM CDT) Color UA Yellow Straw, Yellow, Dark Yellow 11/16/2011 10:50 PM CDT [facility] Clarity UA Clear Clear 11/16/2011 10:50 PM CDT [facility] Specific [place] UA 1.010 1.003 - 1.030 11/16/2011 10:50 PM CDT [facility] pH UA 7.0 5.0 - 8.0 11/16/2011 10:50 PM CDT [facility] Protein UA Negative Negative 11/16/2011 10:50 PM CDT [facility] Blood UA Negative Negative 11/16/2011 10:50 PM CDT [facility] Leukocyte UA Negative Negative 11/16/2011 10:50 PM CDT [facility] Nitrite UA Negative Negative 11/16/2011 10:50 PM CDT [facility] Glucose UA Negative Negative 11/16/2011 10:50 PM T [facility] Ketone UA Trace(A) Negative 11/16/2011 10:50 PM CDT [facility] Bilirubin UA Negative Negative 11/16/2011 10:50 PM CDT [facility] Urobilinogen UA 0.2 0.2 - 1.0 EU/dL 11/16/2011 10:50 PM T [facility] Urine Microscopy Urine microscopy to follow (none) 11/16/2011 10:50 PM CDT [facility] Urine specimen (specimen) URINE SPECIMEN OBTAINED BY CLEAN CATCH PROCEDURE / Unknown 11/16/2011 10:13 PM CDT 11/16/2011 10:35 PM CDT Jacqueline Brower TI[employer] CENTER MANAGER-PHYSICAL THERAPIST AIDE LAB - URINALYSI S ORDERABLES [facility] [address] [place] [address] * URINALYSIS MICROSCOPIC ONLY (11/16/2011 10:13 PM CDT) RBC UA 0-5 0 - 5 # /hpf 11/16/2011 10:50 PM CDT [facility] WBC UA 0-5 0 - 5 # /hpf 11/16/2011 10:50 PM CDT [facility] Bacteria UA Trace None, Trace 11/16/2011 10:50 PM CDT [facility] Epithelial Cell UA 0-5 0 - 5 11/16/2011 10:50 PM CDT [facility] Mucus UA Trace None, Trace 11/16/2011 10:50 PM CDT [facility] Urine specimen (specimen) URINE SPECIMEN OBTAINED BY CLEAN CATCH PROCEDURE / Unknown 11/16/2011 10:13 PM CDT 11/16/2011 10:35 PM CDT Jacqueline Brower TI[employer] CENTER MANAGER-PHYSICAL THERAPIST AIDE LAB - URINALYSI S ORDERABLES Performing Organization Address [facility] Co de Phone Number [facility] [address] [place] [address] * ENDOSCOPY, COLON, DIAGNOSTIC (11/16/2011 5:19 PM CDT) Narrative Transcriptions Kenzie Cobb MD - 11/16/2011 5:19 PM CDT Kenzie Cobb MD GI PROCEDURE ORDERAB LES Performing Organization Address [facility]/ZIP Co de Phone Number [facility] [address] [place] [address] * EGD (11/16/2011 5:01 PM CDT) Narrative Transcriptions Kenzie Cobb MD - 11/16/2011 5:00 PM CDT Kenzie Cobb MD GI PROCEDURE ORDERAB LES Performing Organization Address [facility] Co de Phone Number [facility] [address] [place] [address] * LEUKEMIA PANEL (11/16/2011 3:42 PM CDT) [facility] Leukemia Panel Flow Cyto See Scanned Report 11/26/2011 10:42 AM CDT [facility] Blood specimen (specimen) BONE MARROW SPECIMEN / Unknown 11/16/2011 3:42 PM CDT 11/16/2011 3:45 PM CDT Farhana Perez MD LAB - PATHOLOGY/CYTO LOGY ORDERABLES Performing Organization Address City/State/[facility] Co de Phone Number [facility] [address] [place] [address], [facility] * GROSS + MICRO EXAM (STL) (11/16/2011 3:30 PM CDT) [facility] Case Report Surgical Pathology Report ? Case: [id number] ? -------- Authorizing Provider: ??Stuart Miller MD ?Ordering Provider: ?? Kenzie Cobb MD ? Ordering Location: ? [facility] ?Collected: ? 11/16/2011 ??3:30 PM ? Pathologist: ? Arsenio Gonzales MD ? Received: ?11/19/2011 ??6:28 AM ?Signed Out: ?11/23/2011 ??4:19 PM (Final) ? Specimens: ?? A) - Duodenum ? B) - Stomach ? C) - Esophagus, Distal ? D) - Esophagus, Mid/Proximal ? E) - Colon, Right ? F) - Colon, Left ? G) - Rectosigmoid ? 11/23/2011 4:19 PM CDT [facility] Final Diagnosis A. ??DUODENUM, BIOPSY: ?-EOSINOPHILIC DUODENITIS. ?-SEE COMMENT. ?? B. ??STOMACH, BIOPSY: ?-EOSINOPHILIC GASTRITIS. ?-SEE COMMENT. C. ??ESOPHAGUS, DISTAL, BIOPSY: ?-EOSINOPHILIC ESOPHAGITIS. ?-SEE COMMENT. D. ??ESOPHAGUS, MID/PROXIMAL, BIOPSY: ?-EOSINOPHILIC ESOPHAGITIS. ?-SEE COMMENT. E. ??COLON, RIGHT, BIOPSY: ?-NO PATHOLOGIC DIAGNOSIS. F. ??COLON, LEFT, BIOPSY: ?-NO PATHOLOGIC DIAGNOSIS. G. ??LARGE BOWEL, RECTOSIGMOID, BIOPSY: ?-NO PATHOLOGIC DIAGNOSIS. COMMENT: ??Preliminary microscopic findings discussed with Dr. Ibarra on 11/20/2011 at 10:30 a.m. ??Dr. González Bearden has seen the case and concurs with the diagnosis. 11/23/2011 4:19 PM T [facility] Clinical History The patient is a 11-year-old boy with 5 weeks of diarrhea, significant peripheral eosinophilia (40%), anti-helminth therapy with no symptom improvement. The patient has received upper endoscopy and colonoscopic biopsies. Operative findings include linear furrows, trachealization of esophagus, erythema of distal stomach, scattered erythema bulb of duodenum, normal colon. 11/23/2011 4:19 PM [facility] Gross Description The specimens are submitted fixed in formalin in seven containers each labeled with the patient's name Lavelle Reyes. Specimen A, duodenum, consists of three soft yellow-santizo tissue fragments ranging in size from 0.2 to 0.3 cm in greatest dimension. ??The specimen is submitted in toto as A. Specimen B, stomach, consists of four soft yellow-santizo tissue fragments ranging in size from 0.3 to 0.4 cm in greatest dimension. ??The specimen is submitted in toto as B. Specimen C, esophagus distal, are three tiny soft white-santizo tissue fragments ranging in size from 0.1 to 0.2 cm in greatest dimension. ??The specimen is submitted in cassette C. Specimen D, mid-proximal esophagus, consists of two soft white-santizo tissue fragments ranging in size from 0.2 to 0.3 cm in greatest dimension. ??The specimen is submitted in cassette D. Specimen E, right colon, consists of approximately five soft yellow-santizo tissue fragments ranging in size from 0.2 to 0.3 cm in greatest dimension. ??The specimen is submitted in cassette E. Specimen F, left colon, consists of two soft yellow-santizo tissue fragments each measuring 0.3 and 0.4 cm in greatest dimension. ??The specimen is submitted in cassette F. Specimen G, rectal sigmoid, consists of three soft yellow-santizo tissue fragments each measuring 0.3 cm in greatest dimension. ??The specimen is submitted in toto as G. ??(YC/mal) 11/23/2011 4:19 PM [facility] Microscopic Description A) 3 H&E, B) 3 H&E, C) 3 H&E, D) 3 H&E, E) 3 H&E, F) 3 H&E, G) 3 H&E. Sections of the duodenum demonstrate multiple fragments of duodenal mucosa with prominent villous blunting and crypt hyperplasia. ??The lamina propria cellularity is markedly increased, predominantly composed of eosinophils and other chronic inflammatory cells, including lymphocytes and plasma cells. ??The eosinophils are markedly increased in number, more than 50-100/40x field. ??In addition, the eosinophils are also infiltrating the superficial epithelium and intestinal glands. Occasional eosinophils in the muscularis mucosa are also identified. The eosinophilic infiltrate is extending through the muscularis mucosa into the Noe's glands. ?? Sections of the stomach demonstrate multiple fragment of gastric mucosa with increased numbers of eosinophils in the lamina propria. ??The eosinophilic infiltrate is most prominent in the superficial lamina propria, and focally there are more than 50 eosinophils/40x field. ??Occasional eosinophils are also infiltrating the gastric glands. ?? Sections of the esophagus distal demonstrate multiple small fragments of esophageal mucosa and lamina propria. ??The lamina propria is dense and demonstrates crushed chronic inflammatory cells, including eosinophils. ??The overlying mucosa demonstrates marked basal hyperplasia, spongiosis, and elongation of papillae. ??Numerous intraepithelial eosinophils are also identified. ??The eosinophils demonstrate superficial clustering or layering. ??Several intraepithelial lymphocytes are also present. ?? Sections of the mid/proximal esophagus demonstrate multiple fragments of esophageal mucosa with marked spongiosis, basal hyperplasia, and elongation of papillae. ??Numerous intraepithelial eosinophils are also identified, demonstrating superficial layering and rare eosinophilic microabscesses. ??Some of the microabscesses are associated with acantholysis. ??In addition, the superficial epithelial cells demonstrate prominent desquamation. ??On average, there are more than 50 eosinophils/high power field. ?? Sections of the right colon demonstrate multiple fragments of colonic mucosa with prominent lymphoid follicles. ??The lamina propria demonstrates scattered eosinophils, around 20-35/40x field. ??Overall, the lamina propria cellularity is within the normal limits. ??The glandular architecture is predominantly intact. ??No significant eosinophilic infiltration of colonic epithelium or glands is identified. ?? Sections of the left colon demonstrate multiple fragments of colonic mucosa. ??The glandular architecture is intact. ??The lamina propria cellularity is within normal limits. ??There are scattered eosinophils present. ??No significant eosinophilic infiltration of colonic epithelium or glands is identified. Sections of the rectosigmoid demonstrate multiple fragments of colonic mucosa with intact glandular architecture. ??Overall, the lamina propria cellularity is within normal limits. ??Few eosinophils in the lamina propria are identified. ??No significant eosinophilic infiltration of intestinal epithelium or glands is identified. ??(NU/rtc) 11/23/2011 4:19 PM CDT [facility] Disclaimer This case has been personally reviewed and interpreted by the attending (teaching) pathologist. 11/23/2011 4:19 PM CDT [facility] Synoptic Report 11/23/2011 4:19 PM CDT [facility] Miscellaneous samples (specimen) PART OF DUODENUM / Unknown 11/16/2011 3:30 PM CDT 11/19/2011 6:28 AM CDT Miscellaneous samples (specimen) ENTIRE STOMACH / Unknown 11/16/2011 3:30 PM CDT 11/19/2011 6:28 AM CDT Miscellaneous samples (specimen) REGION OF ESOPHAGUS / Unknown 11/16/2011 3:30 PM CDT 11/19/2011 6:28 AM CDT Miscellaneous samples (specimen) REGION OF ESOPHAGUS / Unknown 11/16/2011 3:30 PM CDT 11/19/2011 6:28 AM CDT Miscellaneous samples (specimen) COLON PART / Unknown 11/16/2011 3:30 PM CDT 11/19/2011 6:28 AM CDT Miscellaneous samples (specimen) COLON PART / Unknown 11/16/2011 3:30 PM CDT 11/19/2011 6:28 AM CDT Miscellaneous samples (specimen) ENTIRE RECTOSIGMOID / Unknown 11/16/2011 3:30 PM CDT 11/19/2011 6:28 AM CDT Stuart Miller MD LAB - PATHOLOGY/CYT OLOGY ORDERABLES Performing Organization Address City/State/[facility] Co de Phone Number [facility] [address] [place] [address] * (ABNORMAL) DIFFERENTIAL MANUAL (11/16/2011 3:00 PM CDT) WBC Auto 11.9 X(10)9/L 11/16/2011 4:45 PM CDT [facility] Neutrophil % Manual 24 24 - 66 % 11/16/2011 4:45 PM CDT [facility] Lymphocytes % Manual 29 22 - 61 % 11/16/2011 4:45 PM CDT [facility] Monocytes % Manual 6 3 - 15 % 11/16/2011 4:45 PM CDT [facility] Eosinophils % Manual 40(H) 0 - 10 % 11/16/2011 4:45 PM CDT [facility] Atypical Lymphocyte % Manual 1 % 11/16/2011 4:45 PM CDT [facility] Cells Counted 100 # cells 11/16/2011 4:45 PM CDT [facility] Platelet Estimation Adequate platelets 11/16/2011 4:45 PM CDT [facility] RBC Morphology Normal 11/16/2011 4:45 PM CDT [facility] WBC Morph Normal 11/16/2011 4:45 PM CDT [facility] Blood specimen (specimen) BLOOD SPECIMEN / Unknown 11/16/2011 3:00 PM CDT 11/16/2011 3:19 PM CDT Selma Mccoy MD LAB - HEMATOLOGY ORD ERABLES Performing Organization Address [facility] de Phone Number [facility] [address] [place] [address] * URIC ACID BLOOD (11/16/2011 3:00 PM CDT) Uric Acid 3.2 2.0 - 5.5 mg/dL 11/16/2011 3:52 PM CDT [facility] Blood specimen (specimen) BLOOD SPECIMEN / Unknown 11/16/2011 3:00 PM CDT 11/16/2011 3:19 PM CDT Farhana Perez MD LAB - CHEMISTRY ORDGeronimo ROBINS Performing Organization Address [facility] Co de Phone Number [facility] [address] [place] [address] * LDH BLOOD (11/16/2011 3:00 PM CDT) LDH 215 140 - 260 U/L 11/16/2011 3:52 PM CDT [facility] Blood specimen (specimen) BLOOD SPECIMEN / Unknown 11/16/2011 3:00 PM CDT 11/16/2011 3:19 PM CDT Farhana Perez MD LAB - CHEMISTRY ORDGeronimo ROBINS [facility] [address] [place] [address] * BONE MARROW BIOPSY (STL) (11/16/2011 3:00 PM CDT) Case Report Bone Marrow Report ?Case: [id number] ? --- Authorizing Provider: ??Farhana Perez MD ? Ordering Provider: ?? Farhana Perez MD ? Ordering Location: ? [facility] ?Collected: ? 11/16/2011 ??3:00 PM ? Pathologist: ? Arsenio Gonzales MD ? Received: ?11/16/2011 ??3:49 PM ?Signed Out: ?11/29/2011 ??8:28 PM (Final) ? Specimens: ?? A) - Bone Marrow Asp + Biopsy ? B) - Bone Marrow Clot ? C) - Bone Marrow Aspirate ? 11/29/2011 8:28 PM T [facility] Final Diagnosis BONE MARROW, ASPIRATE SMEAR, CROSS SECTION, AND CORE BIOPSY: - HYPOCELLULAR BONE MARROW (CELLULARITY 40 - 50%) WITH TRILINEAGE HEMATOPOIESIS. - PERIPHERAL AND MARROW EOSINOPHILIA (APPROXIMATELY 32%). - SEE COMMENT AND DESCRIPTION. COMMENT: ??The flow cytometric analysis performed on this bone marrow by [facility] ([id number]) demonstrated no immunophenotypic evidence of a non-Hodgkin [...] concurs with the diagnosis. 11/29/2011 8:28 PM CDT [facility] Clinical History The patient is a 11-year-old male with significant peripheral eosinophilia and five weeks history of diarrhea. 11/29/2011 8:28 PM CDT [facility] Peripheral Smear Description ?Peripheral Blood ? [...] cells are identified. ??(NU/mal 11/29/2011 8:28 PM [facility] Disclaimer This case has been personally reviewed and interpreted by the attending (teaching) pathologist. 11/29/2011 8:28 PM [facility] Synoptic Report 11/29/2011 8:28 PM [facility] Miscellaneous samples (specimen) SPECIMEN FROM BONE MARROW OBTAINED BY ASPIRATION AND BIOPSY / Unknown 11/16/2011 3:00 PM CDT 11/16/2011 3:49 PM CDT Miscellaneous samples (specimen) BONE MARROW CLOT SPECIMEN / Unknown 11/16/2011 3:00 PM CDT 11/16/2011 3:49 PM CDT Miscellaneous samples (specimen) SPECIMEN FROM BONE MARROW OBTAINED BY ASPIRATION / Unknown 11/16/2011 3:00 PM CDT 11/16/2011 3:49 PM CDT Farhana Perez MD LAB - PATHOLOGY/CYTO LOGY ORDERABLES Performing Organization Address City/State/[facility] Co de Phone Number [facility] [address] [place] [address] * (ABNORMAL) CBC W AUTO DIFFERENTIAL (11/16/2011 3:00 PM CDT) WBC 11.9 4.5 - 14.5 x10^9/L 11/16/2011 4:45 PM CDT [facility] RBC 4.68 4.00 - 5.20 x10^12/L 11/16/2011 4:45 PM CDT [facility] Hemoglobin 14.0 11.5 - 15.5 g/dL 11/16/2011 4:45 PM T [facility] Hematocrit 39.0 35.0 - 45.0 % 11/16/2011 4:45 PM T [facility] MCV 83.3 77.0 - 95.0 fl 11/16/2011 4:45 PM CDT [facility] MCH 29.9 25.0 - 33.0 pg 11/16/2011 4:45 PM T [facility] MCHC 35.9 31.0 - 37.0 gm/dL 11/16/2011 4:45 PM T [facility] RDW-CV 12.7 11.5 - 14.0 % 11/16/2011 4:45 PM T [facility] MPV 10.5(H) 6.0 - 9.5 fl 11/16/2011 4:45 PM T [facility] Hematology Reflex Status Manual Diff to follow 11/16/2011 4:45 PM T [facility] Platelet Count 278 100 - 400 x10^9/L 11/16/2011 4:45 PM T [facility] Blood specimen (specimen) BLOOD SPECIMEN / Unknown 11/16/2011 3:00 PM CDT 11/16/2011 3:19 PM CDT Selma Mccoy MD LAB - HEMATOLOGY ORD ERABLES Performing Organization Address [facility] Co de Phone Number [facility] [address] [place] [address] * LUC BLOOD SCREEN W/REFLEX TITER (11/16/2011 3:00 PM CDT) LUC Negative Negative 11/19/2011 9:21 AM CDT [facility] Blood specimen (specimen) BLOOD SPECIMEN / Unknown 11/16/2011 3:00 PM CDT 11/16/2011 3:19 PM CDT Jacqueline Brower APRN-PHYSICAL THERAPIST AIDE LAB - CHEMISTRY ORDERABLES Performing Organization Address [facility] Co de Phone Number [facility] [address] * SED RATE WESTERGREN (11/16/2011 3:00 PM CDT) Pathologist [facility] Erythrocyte Sedimentation Rate Westergren 4 0 - 13 mm/hr 11/16/2011 4:38 PM CDT [facility] Blood specimen (specimen) BLOOD SPECIMEN / Unknown 11/16/2011 3:00 PM CDT 11/16/2011 3:19 PM CDT Jacqueline Brower APRN-PHYSICAL THERAPIST AIDE LAB - HEMATOLOG Y ORDERABLES Performing Organization Address [facility] Co de Phone Number [facility] [address] [place] [address] * C-REACTIVE PROTEIN (11/16/2011 3:00 PM CDT) Pathologist [facility] C-Reactive Protein <0.2 <=0.5 mg/dL 11/16/2011 3:54 PM CDT [facility] Blood specimen (specimen) BLOOD SPECIMEN / Unknown 11/16/2011 3:00 PM CDT 11/16/2011 3:19 PM CDT Jacqueline F Spinner TIRE CENTER MANAGER-PHYSICAL THERAPIST AIDE LAB - CHEMISTRY ORDERABLES Performing Organization Address City/[facility] Co de Phone Number [facility] [address] [place] [address] * IGE BLOOD (11/16/2011 3:00 PM CDT) Pathologist [facility] IgE Total 127.8 <200 IU/ML 11/16/2011 3:54 PM CDT [facility] Blood specimen (specimen) BLOOD SPECIMEN / Unknown 11/16/2011 3:00 PM CDT 11/16/2011 3:19 PM CDT Jacqueline Brower TIRE CENTER MANAGER-PHYSICAL THERAPIST AIDE LAB - CHEMISTRY ORDERABLES Performing Organization Address [facility] Co de Phone Number [facility] [address] [place] [address] * CYTOGENETICS CANCER PANEL (11/16/2011 12:00 PM CDT) [facility] Indication for Study ANLL / Abdominal Pain / Eosinophilia 11/27/2011 12:03 PM CDT [facility] Results Cytogenetics Analysis of 20 cells (8 cells karyotyped, GTL-banding) from 24-hour unstimulated and 72-hour Interleukin stimulated bone marrow cultures showed the following chromosome pattern: 46,XY[20] Addendum 11/23/2011 FISH results: Fluorescence In-Situ Hybridization (FISH): Analysis of 200 ??interphase cells hybridized with CHIC2 ??probes* (FIP1L1,LNX,PDGFR A), ??directed onto 4q12, CSF1R (D5S23,B8P471,CSF 1R/PDGFRB) directed onto 0p57-25 region, FGFR1 and CEP8 directed onto 8p11.2 and chromosome 8 centromere, and CBFB dual color breakapart probes showed the following results showed the following results: nuc promise(FIP1L1,LNX,PD GFRA)x2[198/200], (D5S23,S9M778,CSF 1R/PDGFRBx2)[198/ 200],(FGFR1,CEP8) x2[198/200],(CBFB 1x2)[196/200] ??Normal Addendum 11/26/2011 Array-CGH results were done for validation purpose and therefore no charge was made: Bone marrow and control DNA were labeled with different fluorescent tags and hybridized onto [employer]-18. Array-CGH analysis of both DNAs revealed no clinically significant deviation indicating no deletion nor duplication: arr(1-22)x2,(XY)x 1 Normal Male 11/27/2011 12:03 PM [facility] Interpretation Male chromosome analysis [...] (Comparative Genome Hybridization) or Chromosomal Microarray Analysis (CLOTH WORKER) to rule out gains or losses. Array-CGH using Sky[employer]-12/[employer]-18 revealed no clinically significant abnormality for the [...] out by this assay. 11/27/2011 12:03 PM [facility] Disclaimer *This test was developed, and its performance characteristics determined by [facility] Molecular Cytogenetics Laboratory as required by CLIA '88 Regulations. It has not been cleared or approved for specific uses by the U.S. Food and Drug Administration. The FDA has determined that such clearance or approval is not necessary. This test is used for clinical purposes. It should not be reported as investigational or for research. 11/27/2011 12:03 PM [facility] Other (qualifier value) BONE MARROW SPECIMEN / Unknown 11/16/2011 12:00 PM CDT 11/16/2011 6:34 PM CDT Farhana Perez MD LAB - PATHOLOGY/CYTO LOGY ORDERABLES [facility] [place] [address] * (ABNORMAL) BASIC METABOLIC PANEL (CALCIUM TOTAL) (11/15/2011 4:52 PM CDT) Glucose 103 70 - 105 mg/dL 11/15/2011 5:50 PM CDT [facility] Sodium 139 136 - 145 mmol/L 11/15/2011 5:50 PM CDT [facility] Potassium 3.8 3.5 - 5.1 mmol/L 11/15/2011 5:50 PM CDT [facility] Chloride 109(H) 98 - 107 mmol/L 11/15/2011 5:50 PM CDT [facility] CO2 20 20 - 28 mmol/L 11/15/2011 5:50 PM CDT [facility] Calcium 8.76(L) 8.92 - 10.32 mg/dL 11/15/2011 5:50 PM CDT [facility] Anion Gap 10 5 - 20 mmol/L 11/15/2011 5:50 PM CDT [facility] BUN 5.1(L) 6.1 - 21.0 mg/dL 11/15/2011 5:50 PM T [facility] Creatinine 0.50(L) 0.62 - 1.00 mg/dL 11/15/2011 5:50 PM T [facility] eGFR by MDRD ml/min/1. 73m2 11/15/2011 5:50 PM CDT [facility] Comment:eGFR calculations ar e not performed for children under 18 years old. eGFR by MDRD ml/min/1. 73m2 11/15/2011 5:50 PM T [facility] Comment:eGFR calculations ar e not performed for children under 18 years old. Blood specimen (specimen) BLOOD SPECIMEN / Unknown 11/15/2011 4:52 PM CDT 11/15/2011 5:15 PM CDT Augie Ellis MD LAB - CHEMISTRY RICHIE ROBINS [facility] [address] [place] [address] * O+P PANEL (11/15/2011 11:07 AM CDT) Source 11/16/2011 4:00 PM CDT [facility] Comment Ref Lab 2 4:00 PM CDT [facility] Comment 11/16/2011 4:00 PM CDT [facility] O+P Direct Wet Mount 11/16/2011 4:00 PM CDT [facility] O+P Concentrate Wet Mount 11/16/2011 4:00 PM CDT [facility] O+P Concentrate Formalin NO ova and parasites seen. 11/16/2011 4:00 PM CDT [facility] Trichrome Stain NO ova and parasites seen. 11/16/2011 4:00 PM CDT [facility] O+P Notification 11/16/19 12 4:00 PM CDT [facility] Additional Comment 11/16/2011 4:00 PM CDT [facility] Comment ONLY 1 O+P EXAM PER 24 HOURS - MAXIMUM OF 3 O+P EXAMS PER PATIENT WILL BE EVALUATED. 11/16/2011 4:00 PM CDT [facility] Stool specimen (specimen) STOOL SPECIMEN / Unknown 11/15/2011 11:07 AM CDT 11/15/2011 11:24 AM CDT Isatu Madrid MD LAB - MICROB IOLOGY ORDERABLES [facility] [address] [facility] [place] [address], [facility] * (ABNORMAL) TISSUE TRANSGLUTAMINASE AB IGA (11/15/2011 4:51 AM CDT) Tissue Transglutaminase (tTG) Ab, IgA 35(H) 0 - 19 Units 11/17/2011 6:43 AM CDT [facility] Comment: INTERPRETIVE INFORMATION: Tissue Transglutaminase (tTG) Antibody, [...] - SEROLOGY OR DERABLES Performing Organization Address City/State/[facility] Co de Phone Number [facility] [employer] [address] [place] [address] * (ABNORMAL) CELIAC DISEASE DUAL AG SCREEN W REFLEX (11/15/2011 4:51 AM CDT) Celiac Disease Dual Antigen 33(H) 0 - 19 Units 11/19/2011 12:21 PM CDT [facility] [employer] Comment: INTERPRETIVE INFORMATION: Celiac Disease Dual Antigen [...] Hester MD LAB - CHEMISTRY O RDERABLES [facility] [address] [place] [address] * (ABNORMAL) CBC W AUTO DIFFERENTIAL (11/15/2011 4:51 AM CDT) WBC 14.6(H) 4.5 - 14.5 x10^9/L 11/15/2011 5:53 AM [facility] RBC 4.68 4.00 - 5.20 x10^12/L 11/15/2011 5:53 AM [facility] Hemoglobin 14.0 11.5 - 15.5 g/dL 11/15/2011 5:53 AM [facility] Hematocrit 39.9 35.0 - 45.0 % 11/15/2011 5:53 AM [facility] MCV 85.3 77.0 - 95.0 fl 11/15/2011 5:53 AM [facility] MCH 29.9 25.0 - 33.0 pg 11/15/2011 5:53 AM [facility] MCHC 35.1 31.0 - 37.0 gm/dL 11/15/2011 5:53 AM [facility] RDW-CV 12.9 11.5 - 14.0 % 11/15/2011 5:53 AM [facility] MPV 10.4(H) 6.0 - 9.5 fl 11/15/2011 5:53 AM [facility] Hematology Reflex Status Manual Diff to follow 11/15/2011 5:53 AM [facility] Platelet Count 267 100 - 400 x10^9/L 11/15/2011 5:53 AM [facility] Blood specimen (specimen) BLOOD SPECIMEN / Unknown 11/15/2011 4:51 AM CDT 11/15/2011 5:12 AM CDT Nathan Hester MD LAB - HEMATOLOGY ORDERABLES [facility] [address] [facility] [place] [address] * (ABNORMAL) GLIADIN ANTIBODY IGA (11/15/2011 4:51 AM CDT) Pathologist [facility] Deamidated Gliadin Peptide (DGP) Ab, IgA 20(H) 0 - 19 Units 11/19/2011 9:29 PM CDT [facility] Comment: INTERPRETIVE INFORMATION: Deamidated Gliadin Peptide (DGP) Ab, IgA 19 Units or less: ........... Negative 20-30 Units: ................ Weak Positive 31 Units or greater: ........ Positive Blood specimen (specimen) BLOOD SPECIMEN / Unknown 11/15/2011 4:51 AM CDT 11/15/2011 5:12 AM CDT Nathan Hester MD LAB - SEROLOGY OR DERABLES Performing Organization Address City/[facility] Co de Phone Number [facility] [address] [place] [address] * (ABNORMAL) DIFFERENTIAL MANUAL (11/15/2011 4:51 AM CDT) WBC Auto 14.6 X(10)9/L 11/15/2011 5:53 AM CDT [facility] Neutrophil % Manual 24 24 - 66 % 11/15/2011 5:53 AM CDT [facility] Lymphocytes % Manual 26 22 - 61 % 11/15/2011 5:53 AM CDT [facility] Monocytes % Manual 4 3 - 15 % 11/15/2011 5:53 AM CDT [facility] Eosinophils % Manual 40(H) 0 - 10 % 11/15/2011 5:53 AM CDT [facility] Basophils % Manual 1 0 - 2 % 11/15/2011 5:53 AM CDT [facility] Atypical Lymphocyte % Manual 5 % 11/15/2011 5:53 AM CDT [facility] Cells Counted 100 # cells 11/15/2011 5:53 AM CDT [facility] Platelet Estimation Normal 11/15/2011 5:53 AM CDT [facility] RBC Morphology Normal 11/15/2011 5:53 AM CDT [facility] WBC Morph Normal 11/15/2011 5:53 AM CDT [facility] Blood specimen (specimen) BLOOD SPECIMEN / Unknown 11/15/2011 4:51 AM CDT 11/15/2011 5:12 AM CDT Nathan Hester MD LAB - HEMATOLOGY ORDERABLES Performing Organization Address [facility] Co de Phone Number [facility] [address] [place] [address] * LAB MISC TEST (11/13/2011 4:57 PM CDT) Test Name CALPROTECTIN, FECAL 11/21/2011 10:27 PM CDT [facility] Test Result See Scanned Report (none) 11/21/2011 10:27 PM CDT [facility] Comment Ref Lab Test performed by [employer] 11/21/2011 10:27 PM CDT [facility] Other (qualifier value) BLOOD SPECIMEN / Unknown 11/13/2011 4:57 PM CDT 11/13/2011 6:11 PM CDT Isatu Madrid MD LAB SEND OUT Performing Organization Address [facility] Co de Phone Number [facility] [address] [place] [address] * (ABNORMAL) EZAWH-2-NRJHJCHPTKN FECES (11/13/2011 4:57 PM CDT) Aijld-0-Bwnelp ypsin Feces 0.75(H) 0.00 - 0.62 mg/g 11/18/2011 3:14 PM CDT [facility] [employer] Stool specimen (specimen) STOOL SPECIMEN / Unknown 11/13/2011 4:57 PM CDT 11/13/2011 6:11 PM CDT Isatu Madrid MD LAB - BODY F LUID ORDERABLES [facility] [address] [place] [address] * FECAL LEUKOCYTES (11/13/2011 3:12 PM CDT) WBC Feces/HPF No Fecal WBC's seen (none) 11/13/2011 10:30 PM CDT [facility] Stool specimen (specimen) STOOL SPECIMEN / Unknown 11/13/2011 3:12 PM CDT 11/13/2011 3:26 PM CDT Nathan Hester MD LAB - BODY FLUID ORDERABLES Performing Organization Address City/[facility] Co de Phone Number [facility] [address] [place] [address] * CULTURE STOOL PANEL (11/13/2011 3:11 PM CDT) Culture SEE BELOW 11/15/2011 7:29 AM CDT [facility] Comment: - Final - Negative for Shiga toxin by ?? immunoassay CULTURE No growth of Salmonella, ?? Shigella, Campylobacter, ?? Yersinia, E.coli 0157-[id number] Stool specimen (specimen) STOOL SPECIMEN / Unknown 11/13/2011 3:11 PM CDT 11/13/2011 3:26 PM CDT Isatu Madrid MD LAB - MICROB IOLOGY ORDERABLES Performing Organization Address City/[facility]/ZIP Co de Phone Number [facility] [address] [facility] [address] [place] [address] * O+P PANEL (11/13/2011 3:11 PM CDT) Source 11/14/2011 4:17 PM CDT [facility] Comment Ref Lab 2 4:17 PM CDT [facility] Comment 11/14/2011 4:17 PM CDT [facility] O+P Direct Wet Mount 11/14/2011 4:17 PM CDT [facility] O+P Concentrate Wet Mount 11/14/2011 4:17 PM CDT [facility] O+P Concentrate Formalin NO ova and parasites seen. 11/14/2011 4:17 PM CDT [facility] Trichrome Stain NO ova and parasites seen. 11/14/2011 4:17 PM CDT [facility] O+P Notification 11/14/19 12 4:17 PM CDT [facility] Additional Comment 11/14/2011 4:17 PM CDT [facility] Comment ONLY 1 O+P EXAM PER 24 HOURS - MAXIMUM OF 3 O+P EXAMS PER PATIENT WILL BE EVALUATED. 11/14/2011 4:17 PM CDT [facility] Stool specimen (specimen) STOOL SPECIMEN / Unknown 11/13/2011 3:11 PM CDT 11/14/2011 8:19 AM CDT Nathan Hester MD LAB - MICROBIOLOG Y ORDERABLES [facility]IE [facility] [address] [place] [address], [facility] * EKG 15-LEAD (11/13/2011 11:04 AM CDT) Ventricular Rate 72 BPM CG MUSE Atrial Rate 72 BPM CG MUSE P-R Interval 144 ms CG MUSE QRS Duration ms 82 ms CG MUSE Q-T Interval ms 394 ms CG MUSE QTC Calculation (Bezet) 431 ms CG MUSE Calculated P [place] 35 degrees CG MUSE Calculated R [place] 46 degrees CG MUSE Calculated T [place] 34 degrees CG MUSE Interpretation EKG * Pediatric ECG Analysis * Normal sinus rhythm Normal ECG No previous ECGs available Confirmed by MD Helio, Bee ([id number]) on 11/13/2011 5:23:15 PM CG MUSE [...] by: Yasmin Lovelace MD Ezekiel Doshi MD US ORDERABLES * (ABNORMAL) CBC W AUTO DIFFERENTIAL (11/13/2011 4:49 AM T) WBC 12.8 4.5 - 14.5 x10^9/L 11/13/2011 5:03 AM [facility] RBC 4.64 4.00 - 5.20 x10^12/L 11/13/2011 5:03 AM [facility] Hemoglobin 14.0 11.5 - 15.5 g/dL 11/13/2011 5:03 AM [facility] Hematocrit 39.6 35.0 - 45.0 % 11/13/2011 5:03 AM [facility] MCV 85.3 77.0 - 95.0 fl 11/13/2011 5:03 AM [facility] MCH 30.2 25.0 - 33.0 pg 11/13/2011 5:03 AM [facility] MCHC 35.4 31.0 - 37.0 gm/dL 11/13/2011 5:03 AM [facility] RDW-CV 13.1 11.5 - 14.0 % 11/13/2011 5:03 AM [facility] MPV 9.9(H) 6.0 - 9.5 fl 11/13/2011 5:03 AM [facility] Hematology Reflex Status Manual Diff to follow 11/13/2011 5:03 AM [facility] [facility] Platelet Count 257 100 - 400 x10^9/L 11/13/2011 5:03 AM [facility] Blood specimen (specimen) BLOOD SPECIMEN / Unknown 11/13/2011 4:49 AM CDT 11/13/2011 4:52 AM CDT Ezekiel Doshi MD LAB - HEMATOLOGY ORDERABLES Performing Organization Address [facility] Co de Phone Number [facility] [address] [place] [phone] * (ABNORMAL) IMMUNOGLOBULINS PANEL (11/13/2011 4:49 AM CDT) [facility] IgA 100 63 - 484 mg/dL 11/13/2011 5:31 AM CDT [facility] IgG 360(L) 540 - 1,822 mg/dL 11/13/2011 5:31 AM CDT [facility] IgM 41 22 - 240 mg/dL 11/13/2011 5:31 AM CDT [facility] Blood specimen (specimen) BLOOD SPECIMEN / Unknown 11/13/2011 4:49 AM CDT 11/13/2011 4:52 AM CDT Ezekiel Doshi MD LAB - CHEMISTRY O RDERABLES Performing Organization Address [facility] Co de Phone Number [facility] [address] [place] [address] * LAB MISC TEST (11/13/2011 4:49 AM CDT) [facility] Test Name TRICHINELLA ANTIBODY BY JOHN PAUL 11/21/2011 10:29 PM CDT [facility] Test Result See Scanned Report (none) 11/21/2011 10:29 PM CDT [facility] Comment Ref Lab Test performed by [employer] 11/21/2011 10:29 PM CDT [facility] Other (qualifier value) BLOOD SPECIMEN / Unknown 11/13/2011 4:49 AM CDT 11/13/2011 4:52 AM CDT Stuart Miller MD LAB SEND OUT Performing Organization Address [facility] Co de Phone Number [facility] [address] [place] [phone] * TOXOCARA ANTIBODY (11/13/2011 4:49 AM CDT) [facility] Toxocara Antibody 0.030 <=0.299 OD 11/17/2011 10:12 PM CDT [facility] Comment: INTERPRETIVE INFORMATION: Toxocara Ab, IgG by JOHN PAUL ??0.299 OD or less....... Negative - No significant ?level of Toxocara IgG antibody ?detected. ??0.300-0.500 OD......... Equivocal - Questionable ?presence of Toxocara IgG antibody ?detected. Repeat testing in - ?days may be helpful. ??0.501 OD or greater.... Positive - Presence of IgG ?antibody to Toxocara detected, ?suggestive of current or past ?infection. Blood specimen (specimen) BLOOD SPECIMEN / Unknown 11/13/2011 4:49 AM CDT 11/13/2011 4:52 AM CDT Stuart Miller MD LAB - CHEMISTRY ORD ERABLES [facility] [address] [place] [address] * ISOHEMAGGLUTININS (11/13/2011 4:49 AM CDT) ABO Rh O Positive 11/13/2011 4:14 PM CDT [facility] Anti A Cell Titer 1:512 11/13/2011 4:14 PM CDT [facility] Anti-B Cell Titer 1:16 11/13/2011 4:14 PM CDT [facility] Blood specimen (specimen) BLOOD SPECIMEN / Unknown 11/13/2011 4:49 AM CDT 11/13/2011 4:52 AM CDT Stuart Miller MD LAB - BLOOD BANK OR DERABLES Performing Organization Address [facility] Co de Phone Number [facility] [address] [place] [address] * (ABNORMAL) DIFFERENTIAL MANUAL (11/13/2011 4:49 AM CDT) WBC Auto 12.8 X(10)9/L 11/13/2011 5:58 AM T [facility] Neutrophil % Manual 26 24 - 66 % 11/13/2011 5:58 AM T [facility] Lymphocytes % Manual 25 22 - 61 % 11/13/2011 5:58 AM T [facility] Monocytes % Manual 4 3 - 15 % 2011 5:58 AM T [facility] Eosinophils % Manual 39(H) 0 - 10 % 11/13/2011 5:58 AM T [facility] Atypical Lymphocyte % Manual 6 % 11/13/2011 5:58 AM T [facility] Cells Counted 100 # cells 11/13/2011 5:58 AM T [facility] Platelet Estimation Adequate platelets 11/13/2011 5:58 AM T [facility] WBC Morph Normal 11/13/2011 5:58 AM T [facility] Anisocytosis Slight 11/13/2011 5:58 AM T [facility] Poikilocytosis Slight 11/13/2011 5:58 AM T [facility] Blood specimen (specimen) BLOOD SPECIMEN / Unknown 11/13/2011 4:49 AM CDT 11/13/2011 4:52 AM CDT Ezekiel Doshi MD LAB - HEMATOLOGY ORDERABLES Performing Organization Address [facility]/ZIP Co de Phone Number [facility] [address] [place] [address] * XR ABD OBSTR SERIES (11/12/2011 5:13 [...] abnormalities are appreciated. Procedure Note Travis Best A - 11/13/2011 EXAMINATION:Two-view chest dated Nov 12, [...] no confluent infiltrate. Ezekiel Doshi MD DIAGNOSTIC IMAGIN G ORDERABLES * O+P PANEL (11/10/2011 10:03 PM CDT) Source 11/14/2011 4:00 PM CDT [facility] Comment Ref Lab 2 4:00 PM CDT [facility] Comment 11/14/2011 4:00 PM CDT [facility] O+P Direct Wet Mount 11/14/2011 4:00 PM CDT [facility] O+P Concentrate Wet Mount 11/14/2011 4:00 PM CDT [facility] O+P Concentrate Formalin NO ova and parasites seen. 11/14/2011 4:00 PM CDT [facility] Trichrome Stain NO ova and parasites seen. 11/14/2011 4:00 PM CDT [facility] O+P Notification 11/14/19 12 4:00 PM CDT [facility] Additional Comment 11/14/2011 4:00 PM CDT [facility] Comment ONLY 1 O+P EXAM PER 24 HOURS - MAXIMUM OF 3 O+P EXAMS PER PATIENT WILL BE EVALUATED. 11/14/2011 4:00 PM CDT [facility] Stool specimen (specimen) STOOL SPECIMEN / Unknown 11/10/2011 10:03 PM CDT 11/10/2011 10:21 PM CDT Stuart Miller MD LAB - MICROBIOLOGY ORDERABLES [facility] [address] [place] [address], [facility] * (ABNORMAL) DIFFERENTIAL MANUAL (11/09/2011 7:02 PM CDT) WBC Auto 16.1 X(10)9/L 11/09/2011 8:08 PM CDT [facility] Neutrophil % Manual 43 24 - 66 % 11/09/2011 8:08 PM CDT [facility] Lymphocytes % Manual 17(L) 22 - 61 % 11/09/2011 8:08 PM CDT [facility] Monocytes % Manual 5 3 - 15 % 11/09/2011 8:08 PM CDT [facility] Eosinophils % Manual 33(H) 0 - 10 % 11/09/2011 8:08 PM CDT [facility] Band % Manual 2 % 11/09/2011 8:08 PM CDT [facility] Cells Counted 100 # cells 11/09/2011 8:08 PM T [facility] Platelet Estimation Adequate platelets 11/09/2011 8:08 PM CDT [facility] WBC Morph Normal 11/09/2011 8:08 PM CDT [facility] Poikilocytosis Occasional 11/09/2011 8:08 PM CDT [facility] Blood specimen (specimen) BLOOD SPECIMEN / Unknown 11/09/2011 7:02 PM CDT 11/09/2011 7:29 PM CDT Mignon Champagne MD LAB - HEMATOLOGY ORD ERABLES [facility] [address] [place] [address] * (ABNORMAL) CBC W AUTO DIFFERENTIAL (11/09/2011 7:02 PM CDT) WBC 16.1(H) 4.5 - 14.5 x10^9/L 11/09/2011 7:44 PM CDT [facility] RBC 5.01 4.00 - 5.20 x10^12/L 11/09/2011 7:44 PM CDT [facility] Hemoglobin 15.2 11.5 - 15.5 g/dL 11/09/2011 7:44 PM CDT [facility] Hematocrit 42.1 35.0 - 45.0 % 11/09/2011 7:44 PM T [facility] MCV 84.0 77.0 - 95.0 fl 11/09/2011 7:44 PM CDT [facility] MCH 30.3 25.0 - 33.0 pg 11/09/2011 7:44 PM CDT [facility] MCHC 36.1 31.0 - 37.0 gm/dL 11/09/2011 7:44 PM T [facility] RDW-CV 13.0 11.5 - 14.0 % 11/09/2011 7:44 PM T [facility] MPV 10.9(H) 6.0 - 9.5 fl 11/09/2011 7:44 PM T [facility] Hematology Reflex Status Manual Diff to follow 11/09/2011 7:44 PM T [facility] Platelet Count 265 100 - 400 x10^9/L 11/09/2011 7:44 PM T [facility] Blood specimen (specimen) BLOOD SPECIMEN / Unknown 11/09/2011 7:02 PM CDT 11/09/2011 7:29 PM CDT Mignon Champagne MD LAB - HEMATOLOGY ORD ERABLES Performing Organization Address City/State/[facility] de Phone Number [facility] [place] [address] * (ABNORMAL) COMPREHENSIVE METABOLIC PANEL (11/09/2011 7:01 PM CDT) Glucose 137(H) 70 - 105 mg/dL 11/09/2011 7:42 PM CDT [facility] Sodium 141 136 - 145 mmol/L 11/09/2011 7:42 PM CDT [facility] Potassium 4.2 3.5 - 5.1 mmol/L 11/09/2011 7:42 PM CDT [facility] Chloride 107 98 - 107 mmol/L 11/09/2011 7:42 PM CDT [facility] CO2 16(L) 20 - 28 mmol/L 11/09/2011 7:42 PM CDT [facility] Calcium 8.96 8.92 - 10.32 mg/dL 11/09/2011 7:42 PM [facility] Anion Gap 18 5 - 20 mmol/L 11/09/2011 7:42 PM [facility] BUN 8.7 6.1 - 21.0 mg/dL 11/09/2011 7:42 PM [facility] Creatinine 0.50(L) 0.62 - 1.00 mg/dL 11/09/2011 7:42 PM [facility] eGFR by MDRD ml/min/1. 73m2 11/09/2011 7:42 PM [facility] Comment:eGFR calculations ar e not performed for children under 18 years old. eGFR by MDRD ml/min/1. 73m2 11/09/2011 7:42 PM [facility] Comment:eGFR calculations ar e not performed for children under 18 years old. Alkaline Phosphatase 165 100 - 390 U/L 11/09/2011 7:42 PM [facility] ALT 31 6 - 46 U/L 11/09/2011 7:42 PM [facility] AST 38(H) 3 - 35 U/L 11/09/2011 7:42 PM [facility] Protein Total 5.5(L) 6.4 - 8.5 gm/dL 11/09/2011 7:42 PM [facility] Albumin 3.3 3.3 - 5.0 gm/dL 11/09/2011 7:42 PM [facility] Bilirubin Total 0.2(L) 0.3 - 1.2 mg/dL 11/09/2011 7:42 PM [facility] Blood specimen (specimen) BLOOD SPECIMEN / Unknown 11/09/2011 7:01 PM T 11/09/2011 7:26 PM T Mignon Champagne MD LAB - CHEMISTRY [facility] Organization Address City/State/ZIP Co de Phone Number [facility] [address] [place] [address] documented in this encounter Visit Diagnoses Diagnosis Diarrhea Abdominal pain, diarrhea, emesis; Presumed EE Abdominal pain, unspecified site Eosinophilia Flushing Eosinophilic esophagitis ADHD (attention deficit hyperactivity disorder) Attention deficit disorder with hyperactivity Presumed EE Abdominal pain, unspecified site ADHD (attention deficit hyperactivity disorder) Attention deficit disorder with hyperactivity Eosinophilia Flushing documented in this encounter Administered Medications Inactive Administered Medications - up to 3 most recent administrations Medication Order MAR Action Action Date Dose Rate Site 0.9% NaCl infusion at 750 mL/hr, Intravenous, ONCE, 1 dose, On Sat11/09/11 at 2030 $ Given 11/09/2011 9:07 PM CDT 750 mL 750 mL/hr 0.9% NaCl injection 2-10 mL 2-10 mL (0.0538-0.2688 mL/kg), Intracatheter, PRN, Other, PIV flush, Starting on 11/18/11 at 0824, Until Antoinette 11/22/11 at 1409, PIV flush Use positive pressure technique for last 0.5 ml. 2 ml for saline lock flush. 10 ml for syringe flush. $ Given 11/21/2011 4:27 PM CDT 3 mL $ Given 11/20/2011 11:29 PM CDT 10 mL $ Given 11/20/2011 7:59 PM CDT 3 mL acetaminophen (TYLENOL) tablet 325 mg 325 mg (8.74 mg/kg), Oral, EVERY 4 HOURS PRN, Pain, Starting on 11/12/11 at 0905, Until Antoinette 11/22/11 at 1409, Maximum allowable Acetaminophen amount = 4 Grams (4000 mg) / 24 hours. $ Given 11/17/2011 9:59 AM CDT 325 mg $ Given 11/12/2011 2:50 PM CDT 325 mg albendazole (ALBENZA) tablet 200 mg 200 mg (5.38 mg/kg), Oral, 2 TIMES DAILY, First dose on Sat11/14/11 at 0830, Until Discontinued $ Given 11/14/2011 10:57 AM CDT 200 mg albendazole (ALBENZA) tablet 200 mg 200 mg (5.38 mg/kg), Oral, 2 TIMES DAILY, 4 doses, First dose (after last modification) on Sat11/14/11 at 2030, Last dose on Sat11/16/11 at 0830 $ Given 11/16/2011 8:15 AM CDT 200 mg $ Given 11/15/2011 8:30 PM CDT 200 mg $ Given 11/15/2011 8:26 AM CDT 200 mg albuterol (PROVENTIL;VENTOLIN) (5 MG/ML) 0.5% nebulizer solution 5 mg 5 mg (0.134 mg/kg), Inhalation, 4 TIMES DAILY PRN, Shortness of Breath, Wheezing, Starting on Sat11/19/11 at 2030, Until Antoinette 11/22/11 at 1409 $ Given 11/19/2011 9:21 PM CDT 5 mg amphetamine-dextroamphetamine (ADDERALL) tablet 5 mg 5 mg, Oral, EVERY 24 HOURS, First dose on 11/10/11 at 1530, Until Discontinued $ Given 11/21/2011 4:26 PM CDT 5 mg $ Given 11/19/2011 4:48 PM CDT 5 mg $ Given 11/18/2011 3:29 PM CDT 5 mg bisACODYL (DULCOLAX) suppository 10 mg 10 mg (0.269 mg/kg), Rectal, ONCE, 1 dose, On Sat11/15/11 at 2200 $ Given 11/15/2011 9:42 PM CDT 10 mg dextrose 5 % and 0.45% NaCl infusion at 65 mL/hr, Intravenous, CONTINUOUS, Starting on Sat11/18/11 at 2045, Until Sat11/19/11 at 1658 $ New Bag/Syringe 11/18/2011 8:53 PM CDT 65 mL/hr 65 mL/hr dextrose 5% and 0.45% NaCl infusion ADS Med 1 dose, Starting on Sat11/19/11 at 1257, Until Sat11/19/11 at 1300, TYLER DURAN: cabinet override $ Given 11/19/2011 1:00 PM CDT dextrose 5% and 0.45% NaCl with KCl 20 mEq infusion at 40 mL/hr, Intravenous, CONTINUOUS, Starting on Sat11/09/11 at 2145, Until Sat11/18/11 at 0824 $ New Bag/Syringe 11/17/2011 3:24 PM CDT 40 mL/hr $ New Bag/Syringe 11/16/2011 10:48 AM CDT 40 mL /hr $ New Bag/Syringe 11/15/2011 10:01 AM CDT 40 mL /hr diatrizoate meglumine & sodium (GASTROVIEW; GASTROGRAFFIN) solution Oral, ONCE, 1 dose, On Sat11/19/11 at 1615 $ Given 11/19/2011 3:53 PM CD T 45 mL diphenhydrAMINE (BENADRYL) injection 25 mg 25 mg (0.672 mg/kg), Intravenous, ONCE, 1 dose, On 11/10/11 at 2130, Max intravenous rate = 25 mg/min $ Given 11/10/2011 9:19 PM CDT 25 mg diphenhydrAMINE (BENADRYL) injection 25 mg 25 mg (0.672 mg/kg), Intravenous, ONCE PRN, Itching, once prn for nausea, 1 dose, Starting on 11/11/11 at 1654, Until 11/12/11 at 1515, Max intravenous rate = 25 mg/min $ Given 11/12/2011 3:15 PM CDT 25 mg diphenhydrAMINE (BENADRYL) injection 25 mg 25 mg (0.672 mg/kg), Intravenous, EVERY 6 HOURS PRN, Insomnia, Itching, Nausea/Vomiting, Starting on 11/12/11 at 2004, Until Antoinette 11/22/11 at 1409, Max intravenous rate = 25 mg/min $ Given 11/18/2011 8:50 PM CDT 25 mg $ Given 11/17/2011 6:54 PM CDT 25 mg $ Given 11/15/2011 3:17 PM CDT 25 mg esomeprazole (NexIUM) injection 10 mg 10 mg (0.269 mg/kg), Intravenous, 2 TIMES DAILY, First dose on Sat11/09/11 at 2300, Until Discontinued, Administer over 5 minutes. RX diluted in NS. $ Given 11/18/2011 8:31 AM CDT 10 mg $ Given 11/17/2011 7:52 PM CDT 10 mg $ Given 11/17/2011 8:17 AM CDT 10 mg esomeprazole (NexIUM) injection 10 mg 10 mg (0.269 mg/kg), Intravenous, 2 TIMES DAILY, First dose on Sat11/19/11 at 0930, Until Discontinued, Administer over 5 minutes. RX diluted in NS. $ Given 11/22/2011 8:34 AM CDT 10 mg $ Given 11/21/2011 8:23 PM CDT 10 mg $ Given 11/21/2011 9:05 AM CDT 10 mg esomeprazole (NexIUM) packet 10 mg 10 mg (0.269 mg/kg), Oral, 2 TIMES DAILY (before breakfast and supper), First dose on 11/18/11 at 1930, Until Discontinued, Mix contents of packet in 1 tablespoonful (15 mls) of water, leave 2 to 3 minutes to thicken, drink within 30 minutes $ Given 11/18/2011 8:52 PM CDT 10 mg fleet enema (FLEET) enema 1 Enema 1 enema, Rectal, ONCE, 1 dose, On Sat11/16/11 at 0800 $ Given 11/16/2011 8:16 AM CDT 1 enema fluticasone hfa 110 (FLOVENT HFA 110) 110 MCG/ACT inhaler 2 Puff 2 puff (0.0538 Puff/kg), Oral, 2 TIMES DAILY, First dose on Sat11/16/11 at 2100, Until Discontinued, Rinse mouth after use.To be swallowed Shake well before using. WASTE DISPOSAL INSTRUCTION: Send to Pharmacy for Disposal. $ Given 11/20/2011 8:00 AM CDT 2 puffs $ Given 11/19/2011 9:10 PM CDT 2 puffs $ Given 11/19/2011 9:49 AM CDT 2 puffs ioversol (OPTIRAY 320) 68 % injection Intravenous, CONTRAST ONCE, Starting on Sat11/19/11 at 1550, Until Sat11/21/11 at 1549 $ Given 11/19/2011 3:52 PM CDT 82 mL isolyte-S pH 7.4 infusion 75 mL/hr, Intravenous, POST-OP CONTINUOUS, Starting on Sat11/16/11 at 1645, Until Sat11/18/11 at 0824, PACU Current Rate 11/16/2011 4:45 PM CDT 75 mL/hr 75 mL/ hr lisdexamfetamine (VYVANSE) capsule 40 mg 40 mg, Oral, DAILY, First dose on 11/10/11 at 0830, Until Discontinued, Capsule maybe taken whole or the capsule may be opened and the entire contents dissolved in water. $ Given 11/22/2011 9:41 AM CDT 40 mg $ Given 11/21/2011 9:05 AM CDT 40 mg $ Given 11/20/2011 8:00 AM CDT 40 mg LORazepam (ATIVAN) injection 1 mg 1 mg (0.0269 mg/kg), Intravenous, ONCE, 1 dose, On Sat11/12/11 at 1930, High Risk, High Alert Medication: Must document double check on IV MAR flowsheet. $ Admin. by Other Provider 11/12/2011 7:08 PM CDT 1 mg LORazepam (ATIVAN) injection ADS Med 1 dose, Starting on Sat11/12/11 at 1901, Until Sat11/12/11 at 1915, AUGUSTO MURGUIA: cabinet override $ Admin. by Other Provider 11/12/2011 7:15 PM CDT mg magnesium citrate solution 300 mL 300 mL (8.06 mL/kg), Oral, ONCE, 1 dose, On Antoinette 11/15/11 at 1600, Pt should finish between 4:00 to 6:00 pm, can be given in divided portions and can mix with other liquids but must finish by 6:00 pm. Pt should drink 8 oz of fluids other than mag citrate per hour from 4:00 till 10:00 pm $ Given 11/15/2011 7:02 PM CDT 300 mL mebendazole (VERMOX) chew tablet 100 mg 100 mg (2.69 mg/kg), Oral, 2 TIMES DAILY, 10 doses, First dose on 11/10/11 at 2030, Last dose on Sat11/15/11 at 0830, Tablets must be chewed/crushed then swallowed $ Given 11/13/2011 8:31 AM CDT 100 mg $ Given 11/12/2011 8:15 PM CDT 100 mg $ Given 11/12/2011 8:45 AM CDT 100 mg metroNIDAZOLE (FLAGYL) pediatric IV 250 mg 250 mg (6.72 mg/kg), at 50 mL/hr, Intravenous, ONCE, 1 dose, On Sat11/12/11 at 1615, Diluted in Normal Saline. DO NOT Refrigerate $ Given 11/12/2011 5:38 PM CDT 250 mg 50 m L/hr metroNIDAZOLE (FLAGYL) suspension 200 mg 200 mg (5.38 mg/kg), Oral, EVERY 8 HOURS, 15 doses, First dose on 11/10/11 at 1730, Last dose on Antoinette 11/15/11 at 0830, Shake well before using Shake well before using. $ Given 11/10/2011 6:37 PM CDT 200 mg metroNIDAZOLE (FLAGYL) tablet 250 mg 250 mg (6.72 mg/kg), Oral, EVERY 8 HOURS, First dose on Sat11/11/11 at 0031, Until Discontinued, May take with food or milk. $ Given 11/12/2011 8:45 AM CDT 250 mg $ Given 11/12/2011 12:02 AM CDT 250 mg $ Given 11/11/2011 5:10 PM CDT 250 mg metroNIDAZOLE (FLAGYL) tablet 250 mg 250 mg (6.72 mg/kg), Oral, EVERY 8 HOURS, First dose (after last modification) on Sat11/13/11 at 0031, Until Discontinued, May take with food or milk. $ Given 11/17/2011 8:15 AM CDT 250 mg $ Given 11/17/2011 12:03 AM CDT 250 mg $ Given 11/16/2011 8:15 AM CDT 250 mg morphine injection 2 mg 2 mg (0.0538 mg/kg), Intravenous, ONCE, 1 dose, On Sat11/12/11 at 1545 $ Given 11/12/2011 3:43 PM CDT 2 mg ondansetron (ZOFRAN) injection 4 mg 4 mg (0.108 mg/kg), Intravenous, EVERY 6 HOURS PRN, Nausea/Vomiting, Starting on Sat11/09/11 at 2140, Until Sat11/12/11 at 1900 $ Given 11/12/2011 4:14 PM CDT 4 mg $ Given 11/12/2011 9:43 AM CDT 4 mg $ Given 11/11/2011 3:41 PM CDT 4 mg ondansetron (ZOFRAN) injection 4 mg 4 mg (0.108 mg/kg), Intravenous, EVERY 6 HOURS PRN, Nausea/Vomiting, Starting on Sat11/18/11 at 2014, Until Antoinette 11/22/11 at 1409, First dose now. Okay to redose $ Given 11/19/2011 4:49 PM CDT 4 mg $ Given 11/19/2011 6:58 AM CDT 4 mg $ Given 11/18/2011 8:49 PM CDT 4 mg ondansetron (ZOFRAN) injection 6 mg 6 mg (0.161 mg/kg), Intravenous, EVERY 6 HOURS PRN, Nausea/Vomiting, Starting on Sat11/12/11 at 1857, Until Sat11/18/11 at 1656 $ Given 11/18/2011 10:01 AM CDT 6 mg $ Given 11/17/2011 11:25 AM CDT 6 mg $ Given 11/15/2011 1:47 PM CDT 6 mg ondansetron (ZOFRAN) injection ADS Med 1 dose, Starting on Sat11/18/11 at 2038, Until Sat11/18/11 at 2049, JOSRSOPHIAY: cabinet override ondansetron (ZOFRAN) tablet 4 mg 4 mg (0.108 mg/kg), Oral, EVERY 8 HOURS PRN, Nausea/Vomiting, Starting on Sat11/18/11 at 1657, Until Antoinette 11/22/11 at 1409 $ Given 11/18/2011 5:36 PM CDT 4 mg oxycodone (immediate release) (ROXICODONE) tablet 5 mg 5 mg (0.134 mg/kg), Oral, EVERY 4 HOURS PRN, Moderate Pain, Severe Pain, Starting on Sat11/12/11 at 1035, Until Sat11/12/11 at 1900 $ Given 11/12/2011 3:23 PM CDT 5 m g pentafluoroprop-tetrafluoroeth (GEBAUERS) aerosol Topical, ONCE, 1 dose, On Sat11/13/11 at 1715, . WASTE DISPOSAL INSTRUCTION: Send to Pharmacy for Disposal. . $ Given 11/13/2011 4:53 PM CDT predniSONE (DELTASONE) tablet 20 mg 20 mg (0.538 mg/kg), Oral, 2 TIMES DAILY, First dose on Sat11/20/11 at 1300, Until Discontinued $ Given 11/22/2011 8:34 AM CDT 20 mg $ Given 11/21/2011 8:23 PM CDT 20 mg $ Given 11/21/2011 9:04 AM CDT 20 mg prochlorperazine (COMPAZINE) tablet 2.5 mg 2.5 mg (0.0672 mg/kg), Oral, EVERY 8 HOURS PRN, Nausea/Vomiting, nausea, Starting on Sat11/18/11 at 2014, Until Antoinette 11/22/11 at 1409 $ Given 11/20/2011 4:51 PM CDT 2.5 mg $ Given 11/20/2011 8:00 AM CDT 2.5 mg $ Given 11/19/2011 9:16 PM CDT 2.5 mg documented in this encounter Active and Recently Administered Medications Times are shown in CDT. Scheduled Medication Order 11/20/2011 11/21/2011 11/22/2011 amphetamine-dextroamph etamine (ADDERALL) tablet 5 mg (CANCELED) 5 mg, Oral, EVERY 24 HOURS, First dose on 11/10/11 at 1530, Until Discontinued 1530 (Not Administered - Provider: Faith Mejía RN - Reason: Refused-Parent/Guardi an) 1626 ($ Given - Provider: Lea Narvaez, MARGARET) esomeprazole (NexIUM) injection 10 mg (CANCELED) 10 mg (0.269 mg/kg), Intravenous, 2 TIMES DAILY, First dose on 11/19/11 at 0930, Until Discontinued, Administer over 5 minutes. RX diluted in NS. 0800 ($ Given - Provider: Faith Mejía RN)195 ($ Given - Provider: Jose Alberto Little RN) 09 ($ Given - Provider: Lea Narvaez RN)2022 ($ Given - Provider: Karissa Mackay RN) 0834 ($ Given - Provider: Sonam Jones, MARGARET) fluticasone hfa 110 (FLOVENT HFA 110) 110 MCG/ACT inhaler 2 Puff (CANCELED) 2 puff (0.0538 Puff/kg), Oral, 2 TIMES DAILY, First dose on Sat11/16/11 at 2100, Until Discontinued, Rinse mouth after use.To be swallowed Shake well before using. WASTE DISPOSAL INSTRUCTION: Send to Pharmacy for Disposal. 0800 ($ Given - Provider: Faith Mejía RN) lisdexamfetamine (VYVANSE) capsule 40 mg (CANCELED) 40 mg, Oral, DAILY, First dose on 11/10/11 at 0830, Until Discontinued, Capsule maybe taken whole or the capsule may be opened and the entire contents dissolved in water. 0800 ($ Given - Provider: Faith Mejía RN) 09 ($ Given - Provider: Lea Narvaez, MARGARET) 0830 (Not Administered - Provider: Sonam Jones RN - Reason: Medication not available)0941 ($ Given - Provider: Sonam Jones, MARGARET) predniSONE (DELTASONE) tablet 20 mg 20 mg (0.538 mg/kg), Oral, 2 TIMES DAILY, First dose on Sat11/20/11 at 1300, Until Discontinued 165 ($ Given - Provider: Faith Mejía, MARGARET) 0730 (Not Administered - Provider: Lea Narvaez, RN - Reason: Documented on duplicate row)09 ($ Given - Provider: Lea Narvaez RN)2022 ($ Given - Provider: Karissa Mackay, MARGARET) 0834 ($ Given - Provider: Sonam Jones, MARGARET) PRN Medication Order 11/20/2011 11/21/2011 11/22/2011 0.9% NaCl injection 2-10 mL (CANCELED) 2-10 mL (0.0538-0.2688 mL/kg), Intracatheter, PRN, Other, PIV flush, Starting on Sat11/18/11 at 0824, Until Sat11/22/11 at 1409, PIV flush Use positive pressure technique for last 0.5 ml. 2 ml for saline lock flush. 10 ml for syringe flush. 1958 ($ Given - Provider: Jose Alberto Little RN)2328 ($ Given - Provider: Jose Alberto Little RN) 162 ($ Given - Provider: Lea Narvaez, MARGARET) prochlorperazine (COMPAZINE) tablet 2.5 mg (CANCELED) 2.5 mg (0.0672 mg/kg), Oral, EVERY 8 HOURS PRN, Nausea/Vomiting, nausea, Starting on Sat11/18/11 at 2014, Until Sat11/22/11 at 1409 0800 ($ Given - Provider: Faith Mejía, MARGARET)1651 ($ Given - Provider: Faith Mejía RN) documented in this encounter Care Teams Title Attorney Relationship Specialty Start Date End Date Lanny Hewitt MD PCP - General Pediatrics 11/09/11 12/30/13 documented as of this encounter
--- OUTSIDE RECORDS SUMMARY | 2024-03-21 22:04 | XMS_ITS | Encounter Summary ---
Author Organization [facility] Address [address] [facility] [place] [address] Care Team Providers Care Electrical Technician Instructor Name Role Phone Lanny Hewitt MD Primary Care Provider Reason for Visit * Reason Onset Date Comments Requesting Labs 12/14/2011 Encounter Details Date Type Department Care Team (Late st Contact Info) Description 12/14/2011 Telephone [facility] Pediatrics - [address] [place] [address] Kenzie Cobb MD [facility] [place] [address] Requesting Labs Social History Tobacco Use Types Packs/Day Years [...] Telephone Encounter - Damaris Lopez RN - 12/14/2011 3:36 PM CDT Orders entered into [employer] and faxed to [facility]. Called mom and she will take him there for theCXR and CBC. * Telephone Encounter - Kenzie Cobb MD - 12/14/2011 3:20 PM CDT I think we can start with CXR given his acute symptoms (he was asymptomatic before). If symptoms persist we can have the pulmonogist evaluate him and decide if further imaging is warranted. Thanks somuch! * Telephone Encounter - Jacqueline Brower APRN-CNS - 12/14/2011 1:30 PM CDT Dad stated that he thought the nodules could not be visualized on a Chest xray but were identified on the CT. He wants to make sure the chest xray is the right test to follow up. Family will have CBCand imaging done at [facility] in [place] [phone] once you decide. * Telephone Encounter - Kenzie Cobb MD - 12/14/2011 1:13 PM CDT You may remember Lavelle - shanon 11 y/o who was admitted last month with significant peripheral eosinophilia and diarrhea. 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 I saw him in clinic yesterday and he is responding well tooral steroids. I forgot to order a few things.. Hoping you can help me facilitate... 1) CBC with diff to be done locally at the end of his prednisone taper (in 2 week) to ensure that eosinophilia is resolved 2) Chest xray - he had some recent shortness of breath and his CT in the hospital and showed some nonspecific nodules in the upper lobes, just want to ensure there is no infiltrative process that canbe associated with other eosinophilic syndromes. THis can be done locally. I had discussed doing the CXR with family but didn't order 3) Plan for EGD in 3 months as a surveillance .. I dont know how to order this for the future. I want to ensure that the eosinophils are gone after treatment. I have advised family to start 6 food elimination diet now so that we can see if this maintains remission.. Thanks! documented in this encounter Plan of Treatment Not on file documented as of this encounter Visit Diagnoses Diagnosis EE (eosinophilic esophagitis)- Primary Eosinophilic esophagitis documented in this encounter Care Teams Electrical Technician Instructor Relationship Specialty Start Date End Date Lanny Hewitt MD PCP - General Pediatrics 11/09/11 12/30/13 documented as of this encounter
--- OUTSIDE RECORDS SUMMARY | 2024-03-21 22:04 | XMS_ITS | Encounter Summary ---
Author Organization [facility] Address [address] [place] [address] Care Team Providers Care Disability Program Navigator Name Role Phone Lanny Hewitt MD Primary Care Provider Reason for Visit * Reason Onset Date Comments Results 05/21/2012 Encounter Details Date Type Department Care Team (Late st Contact Info) Description 05/21/2012 Telephone [facility] Pediatrics - GI [address] [place] [address] Kenzie Cobb MD [address] [place] [address] Results Social History Tobacco Use Types Packs/Day [...] Telephone Encounter - Merary Fountain RN - 06/10/2012 10:17 AM CDT Mother and father came to [facility] to sign consent for release of info to [facility]. Consent given to medical records and pathology department for paperwork & slides. Parent also given a copy of the consent, Dr. Cobb's letter, and referral needs for [facility]. Parents will contact PMD for records also. * Telephone Encounter - Blossom Lujan RN - 06/09/2012 11:17 AM CDT Discussed need to send paperwork to [place] for EE ban, mom states that she is off on 06/12 &will come to [facility] that day to sign releases for needed info to be forwarded. Told mom to have information desk page one of the GI nurses & we will bring instruction sheet from [facility] to her. * Telephone Encounter - Kenzie Cobb MD - 06/09/2012 8:22 AM CDT The referral center at [facility] emailed me back. I have emailed youthe information we should provide to them to get the ball rolling..seems that the wait time for an appt is about 2-3 months. Would you also please include the following referral letter for a synopsisof his course to date. Thanks!! DATE: 06/09/2012 TO: Providers at [facility], [facility] FROM: Kenzie Cobb MD [facility] [place], [place] REASON FOR CONSULT: Eosinophilic enteropathy, unclear etiology BRIEF SUMMARY Lavelle was a previously healthy 11 y/o M who was admitted to our institution in November 2011 for symptoms of abdominal pain and diarrhea. His peripheral absolute eosinophil count was 4901. There was suspicion of parasite infection. He had completed a course of metronidazole prescribed by ED providers at outside hospitals prior to hospital admission but symptoms persisted. On hospital day 2, empiric therapy with anithelminthic therapy (mebendazole) in addition to metronidazole was initiated. Serology for toxocara and trichinella were negative; fecal ova & parasites, giardia antigen negative on several discrete samples. There were no improvements in clinical symptoms and peripheral eosin ophil count remained greater than 4000. No other cell lines were affected. On questioning, there was h/o of ???exercise induced asthma?? responding to bronchodilators in thepast. There was a history of egg allergy when he was 1 year old (characterized by abdominal pain and vomiting) but patient eats eat cake and products where the egg is included. No new drug exposures.Apparently there had been mild symptoms beginning 4 weeks prior to presentation in the middle of vacation in the [facility]. There was no history of recurrent infections. Serology for celiac disease was negative . Symptoms of abdominal pain, diarrhea progressed (documented >10 watery bowel movements/day) through hospital day 3 and also associated with periods of facial flushing and reports of chest pain. Flushing episodes were characterized by red cheeks, neck and upper chest. Flushing symptoms generally responded to administration of IV diphenhydramine. EKG and ECHO were normal. Allergy/Immunology and hematology/oncololgy team consulted - FISH for hypereosinophilic syndrome was sent (normal for all probes on eosinophilia panel). Bone marrow aspirate and EGD/colonoscopy performed on hospital day 5. EGD was endoscopically suggestive of eosinophilic esophagitis characterized by linear furrows and trachealization throughout the esophagus as well as erythema in the antrum andbulb of duodenum. Histopathology of endoscopic specimens revealed significant eosinophilic infiltration not only in the esophagus (>50 eos/hpf), but significant eosinophilic infiltration in stomach (>50 eos/hpf ) and duodenum (>50-100 eos/hpf). The colonic biopsies revealed some scattered e osinophils in the right colon (25-30/hpf), but decreased as specimens progressed more distally to rectum. Bone marrow aspirate revealed normal trilineage hematopoiesis, no evidence of lymphoma or acute leukemia, but did not marrow eosinophilia (32%). Given endoscopic findings, swallowed fluticasone was initiated night of endoscopy with no symptom improvement. CT chest/abdomen obtained and noted some ill-defined densities in RUL and RLL, thought to be of infectious origin, otherwise normal. After confirming no malignant process, systemic steroids were started on evening on 11/20/11 (abs eos count 5080). By 11/21/11, there was dramatic symptom improvement/resolution and resolution of peripheral eosinophilia (absolute eos count 62) and remained normal throughout hospitalization. Patient was seen in following ~3 weeks after hospital discharge, and remained asymptomatic on steroid taper. He was evaluated by pulmonary team and repeat CT chest was obtained to re-evaluate the pulmonary nodules see on initial study - concern for Churg Sumi. This repeat CT chest was completelynormal with resolution of these nodules. He was given a 6 food elimination diet in addition to swallowed fluticasone to maintain symptoms. IL5 level was slightly elevated at 8. His family reports that he has ???good days?? and ???bad days?? with this regimen; he has intermittent diarrhea and abdominal pain. In March 2012, he had a significant episode of abdominal pain and diarrhea. Stool cultures were negative. Absolute eosinophil count 1083. He was given 3 week course of Entocort and had marked symptom improvement. He underwent surveillance upper endoscopy on 05/05/12, approximately 3 weeks after Entocort course completed. He was again having some symptoms diarrhea and abdominal pain. Endoscopic evaluation was again significant for linear furrows. The colonoscopy appeared normal visually. Histopathology however revealed significant eosinophilic infiltration ofnot only upper GI tract of esophagus, stomach, and duodenum, but also significant eosinophilic infiltration of colon including distal colon which was not seen previously (>25-50 eos/hpf throughoutcolon). As symptoms have worsened, he is again on a 3 week course of entocort at the time of this documentation. Since hospital discharge, CBC???s have been frequently monitored and never had abs eos count >1200). He was re-evaluated by hematology-oncology team, workup negative. Cytokine panels are pending at this time. Repeat ECHO was normal. There is obvious concern for underlying process of eosinophilic enteropathy (primarily allergy mediated vs more systemic processes) with potential worsening of eosinophilic tissue infiltration and ongoing management strategies prompting referral to eosinophilic disorder center. Thank you for your help in the care of this patient. If you have any questions, please feel free tocontact me. I will appreciate any updates/recommendations you may provide. Sincerely Kenzie Cobb MD * Telephone Encounter - Kenzie Cobb MD - 05/22/2012 4:02 PM CDT Talked to let him know about absolute eos count of 921. He remains symptomatic with diarrhea. I will prescribe a 4 week course of entocort. ECHO, hematology/oncology appt scheduled. Discussed with Dr. Goff. Will need ongoing follow up. * Telephone Encounter - Damaris Lopez, RN - 05/22/2012 3:49 PM CDT Talked to dad and gave him the hematology appt for Friday 05/26 at 2:20pm. Dad then transferred to Dr. Cobb to explain CBC. * Telephone Encounter - Kenzie Cobb MD - 05/22/2012 2:06 PM CDT Left msg on dad's phone that CBC with WBC 9.6 eos 9.6% = abs eos count of 921. It was 740 on 05/20. It was 1083 in March when he was symptomatic and I subsequently put him on entocort. Instructed dad to call back if he was symptomatic, we could discuss another round of enterocort after his cytokine levels are drawn. * Telephone Encounter - Ariana Kelly - 05/22/2012 2:03 PM CDT Dad calling about test results- left contact # of [phone] * Telephone Encounter - Kenzie Cobb MD - 05/21/2012 4:57 PM CDT Would you please get labs from [facility] in [place] so I can review? I checked by mailbox and faxadavida didn't see any thanks * Telephone Encounter - Kiley Silva - 05/21/2012 4:06 PM CDT Dad calling to get results of CBC done at [facility] yesterday. documented in this encounter Plan of Treatment Not on file documented as of this encounter Visit Diagnoses Not on filedocumented in this encounter Care Teams Disability Program Navigator Relationship Specialty Start Date End Date Lanny Hewitt MD PCP - General Pediatrics 11/09/11 12/30/13 documented as of this encounter
--- OUTSIDE RECORDS SUMMARY | 2024-03-21 22:04 | XMS_ITS | Encounter Summary ---
Author Organization [facility] Address [address] [facility] [place] [address] Care Team Providers Care Education Instructor Name Role Phone Lanny Hewitt MD Primary Care Provider [phone] Reason for Visit * Reason Onset Date Comments Results 01/11/2012 Encounter Details Date Type Department Care Team (Late st Contact Info) Description 01/11/2012 Telephone [facility] Pediatrics - Pulmonology [address] [place] [id number] Anthony Glover MD [address] [place] [id number] Results Social History Tobacco Use Types Packs/Day [...] encounter Miscellaneous Notes * Telephone Encounter - Zaira Arellano - 01/11/2012 1:17 PM CDT Msg left on home phone: per Dr Glover : on CT today, lungs look fine, nodules have resolved, nothing to do a biopsy on. She will talk to GI and Allergy and someone will call back re: what to do next. documented in this encounter Plan of Treatment Not on file documented as of this encounter Visit Diagnoses Not on filedocumented in this encounter Care Teams Education Instructor Relationship Specialty Start Date End Date Lanny Hewitt MD PCP - General Pediatrics 11/09/11 12/30/13 documented as of this encounter
--- OUTSIDE RECORDS SUMMARY | 2024-03-21 22:04 | XMS_ITS | Encounter Summary ---
Author Organization [facility] Address [address] [facility] [place] [address] Care Team Providers Care Commercial Underwriter Name Role Phone Lanny Hewitt MD Primary Care Provider [phone] Reason for Visit * Reason Onset Date Comments Medication Problem 01/30/2012 Encounter Details Date Type Department Care Team (Late st Contact Info) Description 01/30/[address] [facility] Pediatrics - [address] [place] [address] Kenzie Cobb MD [address] [place] [address] Medication Problem Social History Tobacco Use Types Packs/Day Years [...] filedocumented in this encounter Care Teams Commercial Underwriter Relationship Specialty Start Date End Date Lanny Hewitt MD PCP - General Pediatrics 11/09/11 12/30/13 documented as of this encounter
--- OUTSIDE RECORDS SUMMARY | 2024-03-21 22:04 | XMS_ITS | Encounter Summary ---
Author Organization [facility] Address [address] [facility] [place] [address] Care Team Providers Care Call Center Recruiter Name Role Phone Lanny Hewitt MD Primary Care Provider Reason for Visit * Reason Onset Date Comments Results 01/29/2012 Encounter Details Date Type Department Care Team (Late st Contact Info) Description 01/29/2012 Telephone [facility] Pediatrics - [address] [place] [address] Kenzie Cobb MD [address] [place] [address] Results Social History Tobacco Use Types Packs/Day [...] Telephone Encounter - Kenzie Cobb MD - 01/29/2012 2:35 PM CST FYI Talked to mom today - reviewed CBC .. Absolute eos count is 608 (WBC 7.4, eos 8.3%).. Unchangedfrom 01/08.. Mom reports he is not doing worse.. Complained of crampy abdominal pain and diarrhea X1.. He is home for giving break.. May be doing better.. ?more infectious than exacerbation ofsymptoms. Will hold off on systemic steroids now.. No reason for another scope/ . I am considering use of topical steroid like budesonide.. COVERER * Telephone Encounter - Ariana Kelly - 01/29/2012 10:45 AM CST Dad called [facility] and had them read off his CBC results and white blood count was up 2%. Dad would like to discuss with physician possible next steps. Would like to keep out of hospital and is afraid he might be heading back there. Labs sent over from [facility] in [place] and placed in physician's mail box COVERER documented in this encounter Plan of Treatment Not on file documented as of this encounter Visit Diagnoses Not on filedocumented in this encounter Care Teams Call Center Recruiter Relationship Specialty Start Date End Date Lanny Hewitt MD PCP - General Pediatrics 11/09/11 12/30/13 documented as of this encounter
--- OUTSIDE RECORDS SUMMARY | 2024-03-21 22:04 | XMS_ITS | Encounter Summary ---
Author Organization [facility] Address [address] [place] [address] Care Team Providers Care Civil Engineering Professional Name Role Phone Lanny Hewitt MD Primary Care Provider [phone] Reason for Visit * Auth/Cert - Closed Specialty Diagnoses / Procedures Referred By Contac t Referred To Contact Diagnoses EE (eosinophilic esophagitis) Procedures ENDOSCOPY GI UPPER WITH BIOPSY COLONOSCOPY BIOPSY Referral ID Status Reason Start Date Expiration Date Visits Re quested Visits Authorized [id number] Closed 1 1 Encounter Details Date Type Department Care Team (Latest Contact Info) Description 05/05/2012 8:30 AM DIRECTOR OF CAPITAL GIVING - 05/05/2012 9:30 AM DIRECTOR OF CAPITAL GIVING Surgery [facility] - Endoscopy [address] [place] [id number] Kenzie Cobb MD [address] [place] [id number] ESOPHAGOGASTRODUODENOSCOPY (EGD) BIOPSY Surgery Details Date/Time Status Location OR Service Patient Class Case Class Case Type Trauma Case? 05/05/2012 8:30 AM Posted [facility] ENDO Endo 03 [...] Comments Blood Pressure 102/68 05/05/2012 10:15 AM DIRECTOR OF CAPITAL GIVING Pulse 88 05/05/2012 10:15 AM DIRECTOR OF CAPITAL GIVING Temperature 36.4 ??C (97.6 ??F) 05/05/2012 9:28 AM CS T Respiratory Rate 16 05/05/2012 10:15 AM DIRECTOR OF CAPITAL GIVING Oxygen Saturation 100% 05/05/2012 10:15 AM DIRECTOR OF CAPITAL GIVING Inhaled Oxygen Concentration - - Weight 38.4 kg (84 lb 12 oz) 05/05/2012 7:00 AM DIRECTOR OF CAPITAL GIVING Height 148.2 cm (4' 10.35 ) 05/05/2012 7:[address] Body Mass Index 17.5 05/05/2012 7:00 AM DIRECTOR OF CAPITAL GIVING Body Mass Index Percentile 35.72% 05/05/2012 7:0 0 AM DIRECTOR OF CAPITAL GIVING Growth Chart: [facility] (Boys, 2-2 0 Years) documented in this encounter Discharge Summaries * Kenzie Cobb MD - 05/05/2012 9:23 AM CST Images from the original note were not included. SAME DAY SURGERY DISCHARGE SUMMARY Patient ID: Lavelle Michael [id number] 11 y.o. 2000 Discharge Date: Discharge Diagnoses: [...] his/her condition, please call the GI office [phone]. Afterhours, call the exchange at [phone]. DISCHARGE DIET INSTRUCTIONS Start light diet today [...] months. Kenzie Cobb MD 05/05/2012 9:23 AM CTOR OF CAPITAL GIVING documented in this encounter Discharge Instructions * Discharge Instructions* Kathleen Queen RN - 05/05/2012 9:54 AM DIRECTOR OF CAPITAL GIVING Discharge Instructions for: Lavelle Michael Discharge Procedure [...] his/her condition, please call the GI office [phone]. Afterhours, call the exchange at [phone]. DISCHARGE DIET INSTRUCTIONS Start light diet today [...] any worsening of their condition, please phone [phone] and ask for the doctor media relations director for GI or return to the Emergency Department. 05/05/2012 CTOR OF CAPITAL GIVING * Discharge Instructions* Document, Scanned - 05/07/2012 7:42 AM DIRECTOR OF CAPITAL GIVING CTOR OF CAPITAL GIVING documented in this encounter Medications at Time [...] perform above noted procedure. Kenzie Cobb MD CTOR OF CAPITAL GIVING documented in this encounter Procedure Notes * Document, Scanned - 05/13/2012 6:59 AM CSTAssociated Order(s): LAB RESULTS ORDER CTOR OF CAPITAL GIVING * Document, Scanned - 05/07/2012 7:42 AM CSTAssociated Order(s): PATHOLOGY/CYTOLOGY REPORT ORDER CTOR OF CAPITAL GIVING * Kenzie Cobb MD - 05/05/2012 9:33 AM CSTAssociated Order(s): ENDOSCOPY, COLON, DIAGNOSTIC CTOR OF CAPITAL GIVING * Kenzie Cobb MD - 05/05/2012 9:00 AM CSTAssociated Order(s): EGD CTOR OF CAPITAL GIVING documented in this encounter Consult Notes * Document, Scanned - 12/09/2012 7:22 PM CDT documented in this encounter Miscellaneous Notes * Miscellaneous Scans - Document, Scanned - 05/07/2012 7:42 AM CST CTOR OF CAPITAL GIVING * Miscellaneous Scans - Document, Scanned - 05/07/2012 7:42 AM CST CTOR OF CAPITAL GIVING documented in this encounter Plan of Treatment Not on file documented as of this encounter Procedures Procedure Name Priority Date/Time Associated Diagnosis Comments LAB RESULTS ORDER 05/13/2012 6:59 AM DIRECTOR OF CAPITAL GIVING PATHOLOGY/CYTOLOGY REPORT ORDER 05/07/2012 7:42 AM DIRECTOR OF CAPITAL GIVING COLONOSCOPY BIOPSY (ANY METHOD) 05/05/2012 4:30 PM DIRECTOR OF CAPITAL GIVING EE (eosinophilic esophagitis) ESOPHAGOGASTRODUODENOSCOPY (EGD) BIOPSY 05/05/2012 4:30 PM DIRECTOR OF CAPITAL GIVING EE (eosinophilic esophagitis) ENDOSCOPY, COLON, DIAGNOSTIC Routine 9:33 AM DIRECTOR OF CAPITAL GIVING Vomiting and diarrhea EGD Routine 05/05/2012 9:01 AM DIRECTOR OF CAPITAL GIVING Vomiting and diarrhea PATHOLOGY TISSUE EXAM (STL) STAT 04/12 8:52 AM DIRECTOR OF CAPITAL GIVING EE (eosinophilic esophagitis) and Eosinophilic Enterocolitis Eosinophilia CBC W AUTO DIFFERENTIAL STAT 05/05/19 13 8:41 AM DIRECTOR OF CAPITAL GIVING EE (eosinophilic esophagitis) and Eosinophilic Enterocolitis Eosinophilia documented in this encounter Results * LAB RESULTS ORDER (05/13/2012 6:59 AM DIRECTOR OF CAPITAL GIVING) Narrative 05/13/2012 6:59 AM DIRECTOR OF CAPITAL GIVING Procedure Note Document, Scanned - 05/13/2012 6:59 AM CST Scanned Document LAB - THERAPEUTIC DR STEINER MONITORING ORDERABLES * PATHOLOGY/CYTOLOGY REPORT ORDER (05/07/2012 7:42 AM DIRECTOR OF CAPITAL GIVING) Narrative 05/07/2012 7:42 AM DIRECTOR OF CAPITAL GIVING Procedure Note Document, Scanned - 05/07/2012 7:42 AM CST Scanned Document LAB - PATHOLOGY/CYTO LOGY ORDERABLES * ENDOSCOPY, COLON, DIAGNOSTIC (05/05/2012 9:33 AM DIRECTOR OF CAPITAL GIVING) Narrative [facility] - 05/05/2012 9:33 AM DIRECTOR OF CAPITAL GIVING Procedure Note Kenzie Cobb MD - 05/05/2012 9:33 AM CST Kenzie Cobb MD GI PROCEDURE ORDERAB LES Performing Organization Address [facility] Co de Phone Number [facility] [address] [place] [address] * EGD (05/05/2012 9:01 AM DIRECTOR OF CAPITAL GIVING) Narrative [facility] - 05/05/2012 9:01 AM DIRECTOR OF CAPITAL GIVING Procedure Note Kenzie Cobb MD - 05/05/2012 9:00 AM CST Kenzie Cobb MD GI PROCEDURE ORDERAB LES Performing Organization Address [facility] Co de Phone Number [facility] [address] [place] [address] * GROSS + MICRO EXAM (STL) (05/05/2012 8:52 AM DIRECTOR OF CAPITAL GIVING) Case Report Surgical Pathology Report ? Case: [id number] ? Authorizing Provider: ??Kenzie Cobb MD ? [...] J) - Rectosigmoid ? 11/26/2012 4:42 PM CDT [facility] Addendum 1 Ten (10) H&E glass slides were sent to [facility] for a second opinion. Please see a complete scanned report from [facility] signed by Guerda Gordon M.D. 11/26/2012 4:42 PM CDT [facility] Addendum electronically signed by González [...] COLITIS, > 30 EOSINOPHILS/HPF 11/26/2012 4:42 PM [facility] Clinical History The patient is a 11-year-old boy with a history of eosinophilic enteropathy who underwent surveillance endoscopy. The patient is on therapy with dietary elimination of dairy, nuts, and wheat. The patient underwent upper endoscopy and colonoscopy. The findings were mild linear furrows in the esophagus and mild patchy erythema in the duodenal bulb. 11/26/2012 4:42 PM [facility] Gross Description The specimens are received [...] as J1. (CT/dav) 11/26/2012 4:42 PM CDT [facility] Microscopic Description A)3 H&E, B)3 [...] epithelium and crypts. 11/26/2012 4:42 PM CDT [facility] Disclaimer The performance characteristics of all immunohistochemical and indirect ??immunofluorescence stains (if any) cited in this report were determined by the [facility]opathology Laboratory of [facility] (immunohistochemistry ) or the Histology Laboratory of [facility] (indirect immunofluorescence) in compliance with CLIA `88 regulations. ??Some of these tests rely on the use of analyte-specific reagents and are subject to specific labeling requirements by the FDA. ??Such tests were developed by the ??[facility] of [facility] or the [facility]ology Laboratory of [facility] and have not been cleared or approved by the FDA. ??The FDA has determined that such clearance or approval is not necessary. ??These tests are used for clinical purposes and should not be regarded as investigational or for research. ? This case has been personally reviewed and interpreted by the attending (teaching) pathologist. 11/26/2012 4:42 PM CDT [facility] Synoptic Report 11/26/2012 4:42 PM CDT [facility] Pathology/Cytology REGION OF ESOPHAGUS / Unknown 05/05/2012 8:52 AM DIRECTOR OF CAPITAL GIVING 05/05/2012 10:53 AM DIRECTOR OF CAPITAL GIVING Miscellaneous samples (specimen) ENTIRE STOMACH / Unknown 05/05/2012 8:52 AM DIRECTOR OF CAPITAL GIVING 05/05/2012 10:53 AM DIRECTOR OF CAPITAL GIVING Miscellaneous samples (specimen) PART OF DUODENUM / Unknown 05/05/2012 8:52 AM DIRECTOR OF CAPITAL GIVING 05/05/2012 10:53 AM DIRECTOR OF CAPITAL GIVING Miscellaneous samples (specimen) REGION OF ESOPHAGUS / Unknown 05/05/2012 8:52 AM DIRECTOR OF CAPITAL GIVING 05/05/2012 10:53 AM DIRECTOR OF CAPITAL GIVING Miscellaneous samples (specimen) REGION OF ESOPHAGUS / Unknown 05/05/2012 8:52 AM DIRECTOR OF CAPITAL GIVING 05/05/2012 10:53 AM DIRECTOR OF CAPITAL GIVING Miscellaneous samples (specimen) ENTIRE ILEUM / Unknown 05/05/2012 8:52 AM DIRECTOR OF CAPITAL GIVING 05/05/2012 10:53 AM DIRECTOR OF CAPITAL GIVING Miscellaneous samples (specimen) COLON PART / Unknown 05/05/2012 8:52 AM DIRECTOR OF CAPITAL GIVING 05/05/2012 10:53 AM DIRECTOR OF CAPITAL GIVING Miscellaneous samples (specimen) SPECIMEN FROM COLON OBTAINED BY TRANSVERSE COLECTOMY / Unknown 05/05/2012 8:52 AM DIRECTOR OF CAPITAL GIVING 05/05/2012 10:53 AM DIRECTOR OF CAPITAL GIVING Miscellaneous samples (specimen) COLON PART / Unknown 05/05/2012 8:52 AM DIRECTOR OF CAPITAL GIVING 05/05/2012 10:53 AM DIRECTOR OF CAPITAL GIVING Miscellaneous samples (specimen) ENTIRE RECTOSIGMOID / Unknown 05/05/2012 8:52 AM DIRECTOR OF CAPITAL GIVING 05/05/2012 10:53 AM DIRECTOR OF CAPITAL GIVING Kenzie Cobb MD LAB - PATHOLOGY/CYTO LOGY ORDERABLES [facility] [address] [place] [address] * (ABNORMAL) CBC W AUTO DIFFERENTIAL (05/05/2012 8:41 AM DIRECTOR OF CAPITAL GIVING) Pathologist [facility] WBC 5.2 4.5 - 14.5 x10^9/L 05/05/2012 8:53 AM [facility] RBC 4.83 4.00 - 5.20 x10^12/L 05/05/2012 8:53 AM [facility] Hemoglobin 14.6 11.5 - 15.5 g/dL 05/05/2012 8:53 AM [facility] Hematocrit 41.3 35.0 - 45.0 % 05/05/2012 8:53 AM [facility] MCV 85.5 77.0 - 95.0 fl 05/05/2012 8:53 AM [facility] MCH 30.2 25.0 - 33.0 pg 05/05/2012 8:53 AM [facility] MCHC 35.4 31.0 - 37.0 gm/dL 05/05/2012 8:53 AM [facility] RDW-CV 12.5 11.5 - 14.0 % 05/05/2012 8:53 AM [facility] MPV 10.5(H) 6.0 - 9.5 fl 05/05/2012 8:53 AM [facility] Neutrophils % 26 24 - 66 % 05/05/2012 8:53 AM [facility] Lymphocytes % 53 22 - 61 % 05/05/2012 8:53 AM [facility] Monocytes % 6 3 - 15 % 05/05/2012 8:53 AM [facility] Eosinophils % 14(H) 0 - 10 % 05/05/2012 8:53 AM [facility] Basophils % 0 0 - 2 % 05/05/2012 8:53 AM [facility] Immature Granulocytes 0.2 0 - 1 % 05/05/2012 8:53 AM [facility] Neutrophil Absolute 1.37 x10^9/L 05/05/2012 8:53 AM [facility] Lymphocytes Absolute 2.79 x10^9/L 05/05/2012 8:53 AM [facility] Monocytes Absolute 0.29 x10^9/L 05/05/2012 8:53 AM [facility] Eosinophils Absolute 0.74 x10^9/L 05/05/2012 8:53 AM [facility] Basophils Absolute 0.02 x10^9/L 05/05/2012 8:53 AM [facility] Immature Granulocytes Absolute 0.01 0.00 - 0.06 x10^9/L 05/05/2012 8:53 AM DIRECTOR OF CAPITAL GIVING [facility] Platelet Count 250 100 - 400 x10^9/L 05/05/2012 8:53 AM DIRECTOR OF CAPITAL GIVING [facility] Blood specimen (specimen) BLOOD SPECIMEN / Unknown 05/05/2012 8:41 AM DIRECTOR OF CAPITAL GIVING 05/05/2012 8:45 AM DIRECTOR OF CAPITAL GIVING Kenzie Cobb MD LAB - HEMATOLOGY ORD ERABLES Performing Organization Address City/State/[facility] Co de Phone Number [facility] [address] [place] [address] documented in this encounter Visit Diagnoses Diagnosis Eosinophilia- Primary EE (eosinophilic esophagitis) and Eosinophilic Enterocolitis Eosinophilic esophagitis Vomiting and diarrhea Vomiting alone EE (eosinophilic esophagitis) Eosinophilic esophagitis documented in this encounter Administered Medications Inactive Administered Medications - up to 3 most recent administrations Medication Order MAR Action Action Date Dose Rate Site isolyte-S pH 7.4 infusion 50 mL/hr, Intravenous, POST-OP CONTINUOUS, Starting on Sat05/05/12 at 1000, Until Sat05/05/12 at 1144, PACU Current Rate 05/05/2012 9:28 AM DIRECTOR OF CAPITAL GIVING 50 mL/hr 50 mL/hr lidocaine (LMX 4) 4% cream ADS Med 1 dose, Starting on Sat05/05/12 at 0741, Until Sat05/05/12 at 0743, HAYLIE MONTOYA: cabinet override . WASTE DISPOSAL INSTRUCTIONS: Black Bin Disposal required. $ Given 05/05/2012 7:43 AM DIRECTOR OF CAPITAL GIVING 1 tube documented in this encounter Active and Recently Administered Medications Times are shown in DIRECTOR OF CAPITAL GIVING. Continuous Medication Order 05/03/2012 05/04/2012 05/05/2012 isolyte-S [...] RN) documented in this encounter Care Teams Civil Engineering Professional Relationship Specialty Start Date End Date Lanny Hewitt MD PCP - General Pediatrics 11/09/11 12/30/13 documented as of this encounter
--- OUTSIDE RECORDS SUMMARY | 2024-03-21 22:04 | XMS_ITS | Encounter Summary ---
Author Organization [facility] Address [address] [place] [address] Care Team Providers Care Pricing Lead Name Role Phone Lanny Hewitt MD Primary Care Provider [phone] Reason for Visit * Reason Onset Date Comments Results 05/14/2012 Encounter Details Date Type Department Care Team (Late st Contact Info) Description 05/14/2012 Telephone [facility] - GI [address] [place] [address] Kenzie Cobb MD [address] [place] [address] Results Social History Tobacco Use Types Packs/Day [...] Telephone Encounter - Kenzie Cobb MD - 05/19/2012 1:20 PM CDT Let dad know about biopsy results. Eosinophils everywhere i biopsied. Perhaps some improvement in the esophagus, but still present. Seems to have more eos in colon. I let dad know that I have emailedDr. Goff to collaborate on a plan. We are working on an appt with hematology/oncology as well (need to assure no oncologic or other process that would preclude immunomodulator/suppressives/biologictherapies in the future). After discussing with entire team, I will likely make a referral the E[facility] in [place], [place] * Telephone Encounter - Ariana Kelly - 05/19/2012 12:53 PM CDT Mom calling to get EGD results. Looks like they are back.Mom very anxious to get results. She left grandpa's number as mom will be leaving for work soon and may not be able to answer our call. The contact # is [phone] * Telephone Encounter - Damaris Lopez RN - 05/15/2012 9:10 AM CST Left message with Rosa to call back about new hematology visit. Information given to make new appt. They will call back with appt day/time. ICAL BIOSTATISTICIAN * Telephone Encounter - Damaris Lopez RN - 05/14/2012 4:26 PM CST [facility] closed ... Will call in the morning. ICAL BIOSTATISTICIAN * Telephone Encounter - Kenzie Cobb MD - 05/14/2012 4:06 PM CST Will help me get this patient into hem/onc clinic somewhat urgently. 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 We discussed as GI group atpath and all agreed oncology evaluation gain ensure no malignancy before initiation of more potent immunomodulator/suppressive therapy. Pt seen by Dr. Marti during inpatient stay in December. I will call family with biopsy results once this is in the works.. THan;ksk!! ICAL BIOSTATISTICIAN documented in this encounter Plan of Treatment Not on file documented as of this encounter Visit Diagnoses Not on filedocumented in this encounter Care Teams Pricing Lead Relationship Specialty Start Date End Date Lanny Hewitt MD PCP - General Pediatrics 11/09/11 12/30/13 documented as of this encounter
--- OUTSIDE RECORDS SUMMARY | 2024-03-21 22:05 | XMS_ITS | Encounter Summary ---
Author Organization [facility] Address [address] [place] [address] Care Team Providers Care Asphalt Screed Operator Name Role Phone Lanny Hewitt MD Primary Care Provider [phone] Reason for Visit * Auth/Cert - Closed Specialty Diagnoses / Procedures Referred By Contac t Referred To Contact Diagnoses Diarrhea [id number] Referral ID Status Reason Start Date Expiration Date Visits Re quested Visits Authorized [id number] Closed 1 1 Encounter Details Date Type Department Care Team (Late st Contact Info) Description 11/16/2011 8:00 PM CDT Anesthesia Event [address] [address] Itzel Virk MD [address] [place] [id number] Niurka Mcdonnell, AIRCRAFT POWERTRAIN REPAIRER-PRODUCT SAFETY ENGINEER [address] [place] [phone] Anesthesia Record Procedure Summary Procedure Name Responsible Anesthesiologist Anesthesia Start Time Anesthesia Stop Time ESOPHAGOGASTRODUODENOSCOPY ( EGD) BIOPSY Itzel Virk MD 11/16/11 1645 Events Date Time Event Comment 11/16/2011 1432 1432 An Start 1433 An Start Data 1434 An Induction 1449 An Intubation 1505 Quick Note Start bone rosemary ow biopsy and aspirate. 1528 Quick Note Start upper end oscopy. 1623 An Emergence 1623 Extubation 1625 an stop data 1625 An Patient Move To PACU, CATALINA GUILLEN, Report given to AGRONOMY ADVISOR. Tolerated anesthesia well and without any adverse events. 1645 An Stop Meds Name Total fentaNYL (SUBLIMAZE) 50 mcg/ml 25 mcg propofol (DIPRIVAN) 10mg/ml 40 mg ondansetron (ZOFRAN) 2mg/mL injection 8 mg lidocaine (MPF) 2% injection 40 mg midazolam (VERSED) 1 mg/mL injection 2 m g morphine 5 mg/ml injection (currently sh ortage issues 04/30/13) 4 mg isolyte-S pH 7.4 infusion 550 mL * Agents Name Insp. N2O Exp. Sevoflurane O2 Air Insp. Sevoflurane * Blood No blood administrations on file. Lines, Drains, and Airways Type Details Placement Removal Peripheral IV Date: 11/13/11; Time: 165; Orientation: Left; Placed By: Kaveh Joshua 11/13/11 1655 by Guerda Joshua RN 11/18/11 1531 by Faith Mejía RN RETIRED Procedural Site 11/16/11; 1505; Right; Hip; 11/19/11; 1421 11/16/11 1505 by Nathan Jacques RN 11/19/11 1421 by Estephania Hodge RN documented in this encounter Social History [...] Progress Notes * Itzel Virk MD - 11/16/2011 5:37 PM CDT ANESTHESIA POSTPROCEDURE EVALUATION Lavelle Michael is a 11 y.o. male Temp: 36.2 ??C Pulse: 50 Resp: 28 BP: 119/69 mmHg Pain Rating Score #: 3 Mental status: sufficiently recovered from acute administration of anesthesia to participate in theevaluation. Level of consciousness: awake No numbness, tingling or visual disturbances present. General appearance: well-appearing Respiratory function: natural airway. Cardiac: stable Pain: comfortable/acceptable PONV: None Postop hydration: adequate. Patient may be released from anesthesia care. . * Ugo Mccall MD - 11/15/2011 1:59 PM CDT PRE-ANESTHESIA EVALUATION Procedure(s) (LRB): ENDOSCOPY GI UPPER WITH BIOPSY () COLONOSCOPY () Vital Signs: Temp: [36.1 ??C-37.3 ??C] Pulse: [68-85] Resp: [18-20] BP: (94-119)/(47-74) Wt 37.2 kg History: Past Medical History Diagnosis Date ??? ADHD (attention deficit hyperactivity disorder) on adderall and vyvanse ??? Abdominal pain, diarrhea, emesis 11/09/2011 admitted hosp 3-4 week hx ??? Eosinophilia 11/10/2011 ??? Unspecified asthma dx 2004 exercise induced asthma--uses albuterol prn--last used 06/2011--never hosp last ER visit 2008 Past Surgical History Procedure Date ??? Orchiopexy 11/27/2002 -Dr Beaver Allergies: is allergic to eggs. Medications: Current Facility-Administered Medications Medication Dose Route Frequency Provider Last Rate Last Dose ??? magnesium citrate solution 300 mL 300 mL Oral Once Selma Mccoy MD ??? bisACODYL (DULCOLAX) suppository 10 mg 10 mg Rectal Once Selma Mccoy MD ??? fleet pediatric (FLEET PEDIATRIC) enema 1 Enema 1 Enema Rectal Once PRN Stuart Miller MD ??? albendazole (ALBENZA) tablet 200 mg 200 mg Oral BID Selma Mccoy MD 200 mg at 11/15/11 0826 ??? hyoscyamine (LEVSIN) tablet 0.125 mg 0.125 mg Oral q4h PRN Isatu Madrid MD ??? acetaminophen (TYLENOL) tablet 325 mg 325 mg Oral q4h PRN Ezekiel Doshi MD 325 mg at 450 ??? metroNIDAZOLE (FLAGYL) tablet 250 mg 250 mg Oral q8h Ezekiel Doshi MD 250 mg at 11/15/11 0827 ??? ondansetron (ZOFRAN) injection 6 mg 6 mg Intravenous q6h PRN Myah Aj MD 6 mg at 11/15/11 1347 ??? diphenhydrAMINE (BENADRYL) injection 25 mg 25 [...] QDAY Ezekiel Doshi MD 40 mg at 11/15/11 0826 ??? dextrose 5% and 0.45% NaCl with KCl 20 mEq infusion Intravenous Continuous Isatu Madrid MD 40 mL/hr at 11/15/11 1001 ??? esomeprazole (NexIUM) injection 10 mg 10 mg Intravenous BID Ezekiel Doshi MD 10 mg at 11/15/11 08 Physical Exam: NPO status: Since midnight (to be placed NPO after 12 mn on 11/16/2011) Oriented x 3 (alert quiet child) Dental exam findings: OK and Other, see comments. Comment: slightly loose right lower canine Airway class: II. Pulmonary exam: clear to auscultation. Cardiovascular exam positive for: S1 S2. Plan for Anesthesia: ASA 2 Planned intraoperative anesthesia: general Planned postop destination: PACU Planned induction: Intravenous (Discussed IV induction --PIV left a/c) Anesthetic plan, risks and benefits discussed with father and mother. Anesthesia consent: Consent for anesthesia obtained documented in this encounter Plan of Treatment Not on file documented as of this encounter Visit Diagnoses Not on filedocumented in this encounter Administered Medications Inactive Administered Medications - up to 3 most recent administrations Medication Order MAR Action Action Date Dose Rate Site fentaNYL (SUBLIMAZE) injection PRN, Starting on Sat11/16/11 at 1434, Until Sat11/16/11 at 1645, Anesthesia Intra-op $ Given 11/16/2011 2:34 PM CDT 25 mcg isolyte-S pH 7.4 infusion CONTINUOUS PRN, Starting on Sat11/16/11 at 1433, Until Sat11/16/11 at 1645, Anesthesia Intra-op $ New Bag/Syringe 11/16/2011 3:48 PM CDT mL $ New Bag/Syringe 11/16/2011 2:33 PM CDT mL lidocaine (XYLOCAINE MPF) 2 % injection PRN, Starting on Sat11/16/11 at 1434, Until Sat11/16/11 at 1645, Anesthesia Intra-op $ Given 11/16/2011 2:34 PM CDT 40 m g midazolam (VERSED) injection PRN, Starting on Sat11/16/11 at 1434, Until Sat11/16/11 at 1645, Anesthesia Intra-op $ Given 11/16/2011 2:34 PM CDT 2 mg morphine injection PRN, Starting on Sat11/16/11 at 1536, Until Sat11/16/11 at 1645, Anesthesia Intra-op $ Given 11/16/2011 3:56 PM CDT 1 mg $ Given 11/16/2011 3:42 PM CDT 1 mg $ Given 11/16/2011 3:36 PM CDT 2 mg ondansetron (ZOFRAN) injection PRN, Nausea/Vomiting, Starting on Sat11/16/11 at 1543, Until Sat11/16/11 at 1645, Anesthesia Intra-op $ Given 11/16/2011 4:39 PM CDT 4 mg $ Given 11/16/2011 3:43 PM CDT 4 mg propofol (DIPRIVAN) injection PRN, Starting on Sat11/16/11 at 1434, Until Sat11/16/11 at 1645, Anesthesia Intra-op $ Given 11/16/2011 2:34 PM CDT 40 m g documented in this encounter Care Teams Asphalt Screed Operator Relationship Specialty Start Date End Date Lanny Hewitt MD PCP - General Pediatrics 11/09/11 12/30/13 documented as of this encounter
--- OUTSIDE RECORDS SUMMARY | 2024-03-21 22:05 | XMS_ITS | Encounter Summary ---
Author Organization [facility] Address [address] [place] [address] Care Team Providers Care Earth Science Professor Name Role Phone Lanny Hewitt MD Primary Care Provider [phone] Reason for Visit * Reason Comments Diarrhea Diarrhea and vomitin g x2 weeks, was seen at [facility] and given Flagyl for possible parasite. PCP took off flagyl and ran blood tests, still awaiting results. Denies fever. C/o abdominal pain after eating * Auth/Cert - Closed Specialty Diagnoses / Procedures Referred By Leonard gonzalez Referred To Contact Diagnoses Diarrhea [id number] Referral ID Status Reason Start Date Expiration Date Visits Re quested Visits Authorized [id number] Closed 1 1 Encounter Details Date Type Department Care Team (Latest Contact Info) Description 11/16/2011 12:00 PM CDT - 11/16/2011 1:30 PM CDT Surgery [facility] - Endoscopy [address] [place] [id number] Kenzie Cobb MD [address] [place] [id number] ESOPHAGOGASTRODUODENOSCOPY (EGD) BIOPSY Surgery Details Date/Time Status Location OR Service Patient Class Case Class Case Type Trauma Case? 11/16/2011 12:00 PM Posted [facility] Endo 03 Gastroenterology Inpatient Elective > 5 days Panel 1 Procedure LRB Anes Op Region Wound Class Comments ESOPHAGOGASTRODUODENOSCOPY (EGD) BIOPSY General Clean Contaminated COLONOSCOPY General Clean Contaminated BIOPSY BONE MARROW Right General-Ped s Coccyx Clean performed by Dr. Kaia HENRY Surgeon Surgeon Role Service Panel Kenzie Cobb [...] 11/09/2011 2:2 7 PM CDT Growth Chart: [facility] (Boys, 2-2 0 Years) documented in this [...] 20 mg bid for one week Selma Z Nadine * predniSONE 20 MG tablet Commonly known as: DELTASONE Start taking on: 12/01/2011 Take 1 Tab by mouth once daily for 7 days. Selma Booidi * predniSONE 5 MG tablet Commonly known as: DELTASONE Start taking on: 12/09/2011 Take 1 Tab by mouth once daily for 7 days. Take 3 tabs by mouth- 15 mg once daily for 7 days Selma Booidi * predniSONE 10 MG tablet Commonly known as: DELTASONE Start taking on: 12/10/2011 Take 1 Tab by mouth once daily for 7 days. Take 10 mg once daily for 7 days Selma Booidi * predniSONE 5 MG tablet Commonly known as: DELTASONE Start taking on: 12/18/2011 Take 1 Tab by mouth once daily for 7 days. Take 1 tablet by mouth - 5 mg once daily for one week and then stop prednisone taper Selma Booidi * Notice: This list has 5 medication(s) [...] daily. Discharge Procedure Orders PATHOLOGY SPECIMEN - [facility] COMMUNICATION TO ENDOSCOPY STAFF Standing Status: Future Standing Exp. Date: 11/14/12 Pathology orders cannot be placed in [facility] at this time - A COMPLETED PATHOLOGY [...] on December 12 at 2:15 pm at [facility] Selma Mccoy MD Attending Physician Supervisory Note I personally interviewed the parents and patient and examined the patient and agree with the doctorabove with change made by me in blue text, i.e., the added diagnosis of eosinophilic gastroenteritis and other changes under discharge diagnoses. Ramiro Perez MD CC: Lanny Hewitt #2 [facility] [address] / [facility] [id number] documented in this encounter Discharge Instructions * Discharge Instructions* Sonam Jones RN - 11/22/2011 12:37 PM CDT If you have any questions regarding your home medications/prescriptions, please contact your primary physician. Discharge Procedure Orders PATHOLOGY SPECIMEN - [facility] COMMUNICATION TO ENDOSCOPY STAFF Standing Status: Future Standing Exp. Date: 11/14/12 Pathology orders cannot be placed in [facility] at this time - A COMPLETED PATHOLOGY [...] on December 12 at 2:15 pm at [facility] Please avoid smoking and second hand [...] Refills Start Date End Date albuterol HFA (PROVENTIL;VENTOLIN;IN OAIR) 108 (90 BASE) MCG/ACT inhaler Inhale [...] 24-66 (%) Lymph Manual 27 22-61 (%) Wilkin Manual 2 (*) 3-15 (%) Eos Manual [...] above with the parents. Ramiro Perez MD [phone] * Selma Mccoy MD - 11/21/2011 2:12 PM CDT Pediatric Resident Daily Progress Note Lavelle Reyes 11/21/2011 2:12 PM Hospital Day: 12 Clinical Course Pt showed significant clinical improvement after starting po steroids. No flushing episodes and stools more formed in consistency. Objective Vitals BP: 101/59 mmHg (11/21/11 1133), Temp: 97 ??F (11/21/11 1133), Pulse: 84 (11/21/11 113), Resp: 20 (11/21/11 113), SpO2: 100 % (11/21/11 113), Height: 147.3 cm (4' 10 ) (11/09/11 142), Weight: 37.2 kg (82 lb 0.2 oz) (11/09/11 142) Temp (24hrs), Av.6 ??F, Min:96.8 ??F, Max:98.8 [...] Manual Latest Range: 22-61 % 26 27 Wilkin Manual Latest Range: 3-15 % 7 2 [...] home Adderall and Vyvanse Selma Mccoy MD [phone] * Kunal Goff MD - 11/21/2011 12:36 [...] O and P sent on 11/12 and 9/6 neg, second stool cx sent on 11/12 [...] BID Nathan Hester MD 20 mg at 11/21/11903 ??? esomeprazole (NexIUM) injection 10 mg 10 mg Intravenous BID Selma Mccoy MD 10 mg at 11/21/11904 ??? ioversol (OPTIRAY 320) 68 % injection Intravenous Contrast - Once Selma Mccoy MD 82 mL at 11/19/11 1552 ??? albuterol (PROVENTIL;VENTOLIN) (5 MG/ML) 0.5% nebulizer solution 5 mg 5 mg Inhalation 4X/day PRN Roshan Claire MD 5 mg at 11/19/112120 ??? 0.9% NaCl injection 2-10 mL 2-10 mL Intracatheter PRN Nathan Hester MD 10 mL at 11/20/11 2329 ??? 0.9 % nacl IV BOLUS 10-50 [...] yolk if cooked in foods PE: Vitals: 11/20/11201111/20/11 2324 11/21/11 0902 11/21/11 1133 BP: 98/55 94/55 89/51 [...] 11/20/2011 for further details. Ramiro Perez MD [phone] * Selma Mccoy MD - 11/20/2011 11:22 AM CDT Pediatric Resident Daily Progress Note Lavelle Reyes 11/20/2011 11:22 AM Hospital Day: 11 Clinical Course Pt had two flushing episodes overnight and was nauseous, pt was given Zofran and Compazine. Pt's father reported Zofran helped with the nausea but not with flushing Objective Vitals BP: 89/44 mmHg (11/20/11 08), Temp: 96.8 ??F (11/20/11 08), Pulse: 64 (11/20/11 08), Resp: 20 (11/20/11799), SpO2: 95 % (11/19/11 2344), Height: 147.3 [...] Lymph Manual Latest Range: 22-61 % 26 Wilkin Manual Latest Range: 3-15 % 7 Eos [...] home Adderall and Vyvanse Selma Mccoy MD [phone] * Jacqueline Rosado RN - 11/19/2011 8:42 [...] Lymph Manual Latest Range: 22-61 % 40 Wilkin Manual Latest Range: 3-15 % 2 (L) [...] home Adderall and Vyvanse Selma Mccoy MD [phone] * Yanely Baron LCSW - 11/19/2011 6:03 PM CDT SW received consult and met with parents. Parents have FMLA forms they need completed, and requested meal tickets. As parents live only 34 miles from [facility], they're not eligible for regular, ongoing meal tickets, but SW provided them each one for today as they've exhausted their resources, and encouraged them to have family members bring them food or money for same. They are aware of [address] [facility] Room, as well as parent refrigerator and microwave. HUDSON will contact physician or GI nurse tomorrow regarding FMLA forms. Yanely Baron LCSW [phone] * Ramiro Perez MD - 11/19/2011 3:29 [...] pending. Etiology of flushing, rash, nausea, vomiting anddiarrhea remains unclear, but symptoms persist. Exam: BP [...] 11/19/2011 for further details. Ramiro Perez MD [phone] * Latasha Brown RN - 11/18/2011 9:57 [...] 11/18/2011 for further details. Ramiro Perez MD [phone] * Nathan Hester MD - 11/18/2011 8:51 AM CDT Pediatric Resident Daily Progress Note Lavelle M Alec 11/18/2011 8:51 AM Hospital Day: 9 [...] Av.2 ??F, Min:97 ??F, Max:99.6 ??F 11/16 07 - 11/17 0659 In: 1439.3 [P.O.:1100; I.V.:339.3] [...] home Adderall and Vyvanse Nathan Hester MD [phone] * Ramiro Perez MD - 11/17/2011 11:10 [...] 24-66 (%) Lymph Manual 29 22-61 (%) Wilkin Manual 6 3-15 (%) Eos Manual 40 [...] Dark Yellow Clarity UA Clear Clear Specific [place] UA 1.010 1.003-1.030 pH UA 7.0 5.0-8.0 [...] (%) Lymph Manual 20 (*) 22-61 (%) Wilkin Manual 7 3-15 (%) Eos Manual 29 [...] 11/17/2011 for further details. Ramiro Perez MD [phone] * Jeff Bess MD - 11/17/2011 5:48 AM CDT Night Float Cross cover Per Dr. Cobb's recommendations, order placed for Flovent 110 mcg 2 puffs swallowed BID. Jeff Bess PGY 3 Internal Medicine-Pediatrics [phone] * Selma Mccoy MD - 11/16/2011 11:22 [...] Pulse: 50 (11/16/11 172), Resp: 28 (11/16/11 172), SpO2: 97 % (11/16/11 1659), Height: 147.3 [...] home Adderall and Vyvanse Selma Mccoy MD [phone] * Kenzie Cobb MD - 11/16/2011 8:00 [...] Resident Daily Progress Note Lavelle M Alec 11/15/2011 12:01 PM Hospital Day: 6 Clinical Course Pt clinically better this am. Continues to have diarrhea. Pt has 7 watery stools in last 24 hours. One episode of cutaneous flushing that resolved with Benadryl. Objective Vitals BP: 101/65 mmHg (11/15/11814), Temp: 98 ??F (11/15/11814), Pulse: 74 (11/15/11814), Resp: 18 (11/15/11814), SpO2: 98 % (11/14/11 0048), Height: 147.3 cm (4' 10 ) (11/09/11 1427), Weight: 37.2 kg (82 lb 0.2 oz) (11/09/11 1427) Temp (24hrs), Av.3 ??F, Min:97 ??F, Max:99.2 ??F 11/13 0700 - 11/14 0659 In: 2042.6 [P.O.:960; I.V.:1082.6] Out: 1345 [Urine:1345] [...] home Adderall and Vyvanse Selma Mccoy MD [phone] * Kunal Goff MD - 11/15/2011 7:45 [...] in the middle of the Vacation in [facility], Pt started havingdiarrhea 5-6 times a day, [...] BID Selma Mccoy MD 200 mg at 11/14/11 2203 ??? hyoscyamine (LEVSIN) tablet 0.125 mg 0.125 [...] dogs in the home. Recent trip to [place], but symptoms started before departure. Asessment: Esosinophilia [...] Follow up stool studies including calprotectin, stool, [id number] 5. Repeat stool ova & parasites See [...] lb 0.2 oz) (11/09/11 142) Temp (24hrs), Av.6 ??F, Min:96.2 ??F, Max:97 [...] home Adderall and Vyvanse Selma Mccoy MD [phone] * Selma Mccoy MD - 11/13/2011 11:22 AM CDT Pediatric Resident Daily Progress Note Lavelle M Alec 11/13/2011 11:23 AM Hospital Day: 4 Clinical [...] oz) (11/09/11 1427) Temp (24hrs), Av.3 ??F, Min:96 ??F, Max:98.4 ??F 11/11 07 - 11/12 0659 In: 1997.6 [P.O.:1040; I.V.:957.6] [...] Lymph Manual Latest Range: 22-61 % 25 Wilkin Manual Latest Range: 3-15 % 4 Eos [...] home Adderall and Vyvanse Selma Mccoy MD [phone] * Kenzie Cobb MD - 11/13/2011 10:46 AM CDT Pediatric Attending Daily Progress Note 11/13/2011 10:46 AM Hospital Day: 4 I have interviewed the patient/family and examined this patient. I have reviewed and confirmed/revised the findings of the resident. My findings (todd elements and supplemental information) are as follows: Clinical Course Laevlle remains admitted with issues related to signficant [...] future to ensure trend downwards 3. Stool [id number] - protein losses may explain low IgG 4. Ok for Levsin prn abdominal pain 5. EKG today given chest pain, but this may be musculoskeletal (reviewed results - appears normal to me, resident to ask for director of social work read) Patient Active Problem List Diagnoses ??? [...] Grandparents atbedside. Will continue to monitor. * Feliz Morrow RN - 11/12/2011 6:[address] [...] Resident Daily Progress Note Lavelle Lynnette Alec 11/12/2011 11:50 AM Hospital Day: 3 [...] lb 0.2 oz) (11/09/11 142) Temp (24hrs), Av ??F, Min:97.6 ??F, Max:98.4 ??F 11/10 699 - 11/11 0559 In: 1746.3 [P.O.:900; I.V.:846.3] Out: 1825 [Urine:1825] [...] home Adderall and Vyvanse Selma Mccoy MD [phone] * Stuart Miller MD - 11/12/2011 10:06 [...] 11/12/2011 for further details. Stuart Miller MD [phone] * Shailesh Augustin 11/11/2011 11:28 AM CDT Pediatric Resident Daily Progress Note Lavelle Junior Alec 11/11/2011 11:28 AM Hospital Day: 2 [...] ??F (11/11/11810), Pulse: 80 (11/11/11810), Resp: 24 (11/11/11810), SpO2: 99 % (11/10/11 1550), Height: 147.3 cm (4' 10 ) (11/09/11 1427), Weight: 37.2 kg (82 lb 0.2 oz) (11/09/11 1427) Temp (24hrs), Av.6 ??F, Min:96.4 ??F, Max:99.2 ??F 11/09 07 - 11/10 0659 In: 2778 [P.O.:1260; I.V.:1518] [...] 11/11/2011 for further details. Stuart Miller MD [phone] * Jeff Bess MD - 11/10/2011 10:34 [...] q8hrs. Jeff Bess PGY 3 Internal Medicine-Pediatrics [phone] * Shailesh Augustin 11/10/2011 12:48 PM CDT Pediatric Resident Daily Progress Note Lavelle Reyes 11/10/2011 12:48 PM Hospital Day: 1 Clinical Course Overall patient has improved since the last note. Pt still had 5-6 episodes of watery diarrhea overnight but no episodes of nausea or vomiting. Objective Vitals BP: 83/45 mmHg (11/10/11 08), Temp: 98 ??F (11/10/11 08), Pulse: 64 (11/10/11 08), Resp: 20 (11/10/11 08), SpO2: 99 % (11/10/11 0356), Height: 147.3 [...] 11 y.o. male who had vacation in [place] and now has 1mo of diarrhea. Also [...] resident's H&P further details. Stuart Miller MD [phone] CC: Lanny Hewitt 2 [facility] [phone] / [place] [phone] * Ezekiel Doshi MD - 11/09/2011 8:28 [...] (%) Lymph Manual 17 (*) 22-61 (%) Wilkin Manual 5 3-15 (%) Eos Manual 33 [...] home Adderall and Vyvanse Ezekiel Doshi MD [phone] CC: Lanny Hewitt #2 [facility] [address] / [place] [id number] documented in this encounter Procedure Notes * [...] this encounter Consult Notes * Yanely Baron, RIDES SUPERVISOR - 11/20/2011 11:48 AM CDTAssociated Order(s): IP CONSULT TO TRIAGE RN Social Service Consult Reason for Referral: Family [...] brother and 10 year old sister in [place], [place], which is near [place]. Mother is employed as a pool technician at [employer] in [place], [place]. Dad is in school at [employer]. Both parents have extended family in the area that have been helping out with their other children while they're at [facility] with Lavelle. Lavelle's health plan is [facility] which is supplemented by [place] Medicaid. Observations and Assessment: 11 year old hospitalized for for 11 days now for GI problems. Family with limited resources, requesting meal tickets taking time off of work and school to be with Lavelle. Parents requesting letters that Lavelle's been hospitalized and that they've needed to be here, as well as assistance with FMLA forms. Plan: SW explained to parents that they do not qualify for ongoing meal ticket support, as they live 34 miles from [facility], but did provide each parent with one $5 meal ticket on 11/18/09 because they've exhaused their current resources. SW spoke with parents about parent refrigerator and microwave in 2nd floor waiting room, [facility], and encouraged them to have family members bring them food from home. SW completed one letter for mother and one for father, per their request. Originals given to parents, copies placed in hard chart. HUDSON contacted GI nurse, Barb Tristan at extension [phone], regarding mom's FMLA forms. SW placing themin hard chart, at Barb's request, and she will complete them on 11/20 and return them to mother. SW to follow for support and discharge planning. Yanely Baron LCSW [phone] * Farhana Perez MD - 11/16/2011 12:48 [...] 24-66 (%) Lymph Manual 26 22-61 (%) Wilkin Manual 4 3-15 (%) Eos Manual 40 [...] is a more common diagnosis in the infant age group. Although eosinophilia can be among the laboratory abnormalities seen in Hodgkin's lymphoma, patients with Hodgkin's typically have lymphadenopathy, which Lavelle does not appear to have. JANIA is associated w/ characteristic genetic translocations, microdeletions that result in fusion with -PDGFRA (Zacarias Brock and B Liliya, Curr Opinion Hematol, 2007). Plan - bone [...] the metronidazole and was ultimately referred to [facility] Emergency Room for further evaluation and treatment. Lavelle lives [place] parents and [place]. He spends a good deal of time outdoors and he has very close contact with dogs in the two households that he frequents. He has no other significant animal contact nor has he traveled out of the country recently. About a week orso prior to onset of this symptoms he did travel to the [facility] in [place] and spent a good dealof time outdoors [...] contact with the patient: 11/09/2011 16:[id number] [facility] EMERGENCY DEPT History Chief Complaint Patient presents with ??? Diarrhea Diarrhea and vomiting x2 weeks, was seen at [facility] and given Flagyl for possible parasite.PCP took off flagyl and ran blood tests, still awaiting results. Denies fever. C/o abdominal pain after eating I have read the resident/JEWELRY JOBBER history. Unless appended by me below, I agree with findings as documented. HPI Comments: 11 yr old male with 4 wk h/o diarrhea started while travelling in [place], initially watery, NB no mucus, occasional undigested [...] symptoms. No painelsewhere. No rash. Went to [facility] ER twice and PCP once and [...] oz) Physical Exam I have reviewed the resident/JEWELRY JOBBER physical exam. Unless appended by me below, [...] hours a day, from any computer, through [employer], the online version of our electronic medical record. If you would like to use this service, please call Sonya Hernandez, Connectivity Coordinator, at . We appreciate the opportunity to care for your patients. If you would like additional information, please call the emergency department directly at . Sincerely, Mignon Champagne MD Division of Emergency Medicine [facility], [place] [facility] [place] FIRST [facility]UMA I DESIGNATED EMERGENCY DEPARTMENT Provider contact with the patient: 11/09/2011 15:[id number] [facility] EMERGENCY DEPT History Chief Complaint Patient presents with ??? Diarrhea Diarrhea and vomiting x2 weeks, was seen at [facility] and given Flagyl for possible parasite.PCP took [...] patient and his family were traveling in [place]. Having several loose/wattery stools per day during [...] the entire past week. Seen at at [facility] ED for this issue twice this week [...] 2 10:14 PM CDT [facility] NO CULTURE Routine 11/16/2011 10:13 PM [...] MISC TEST Routine 11/13/2011 4:57 PM CDT [id number] FECES Routine 2011 4:57 PM CDT FECAL [...] WBC Auto 7.7 X(10)9/L 11/22/2011 9:53 AM T [facility] Neutrophil % Manual 72(H) 24 - 66 % 11/22/2011 9:53 AM CDT [facility] Lymphocytes % Manual 23 22 - 61 % 11/22/2011 9:53 AM CDT [facility] Monocytes % Manual 4 3 - 15 % 2011 9:53 AM CDT [facility] Band % Manual 1 % 11/22/2011 9:53 AM T [facility] Cells Counted 100 # cells 11/22/2011 9:53 AM CDT [facility] Platelet Estimation Normal 11/22/2011 9:53 AM CDT [facility] WBC Morph Normal 11/22/2011 9:53 AM T [facility] Anisocytosis Slight 11/22/2011 9:53 AM T [facility] Poikilocytosis Slight 11/22/2011 9:53 AM T [facility] Spherocytes Few 11/22/2011 9:53 AM T [facility] Blood specimen (specimen) BLOOD SPECIMEN / Unknown 11/22/2011 5:23 AM CDT 11/22/2011 5:43 AM CDT Selma Mccoy MD LAB - HEMATOLOGY ORD ERABLES Performing Organization Address City/State/[facility] Co de Phone Number [facility] [address] [place] [address] * (ABNORMAL) CBC W AUTO DIFFERENTIAL (11/22/2011 5:23 AM CDT) WBC 7.7 4.5 - 14.5 x10^9/L 11/22/2011 9:53 AM T [facility] RBC 4.43 4.00 - 5.20 x10^12/L 11/22/2011 9:53 AM CDT [facility] Hemoglobin 13.2 11.5 - 15.5 g/dL 11/22/2011 9:53 AM T [facility] Hematocrit 37.5 35.0 - 45.0 % 11/22/2011 9:53 AM CDT [facility] MCV 84.7 77.0 - 95.0 fl 11/22/2011 9:53 AM T [facility] MCH 29.8 25.0 - 33.0 pg 11/22/2011 9:53 AM CDT [facility] MCHC 35.2 31.0 - 37.0 gm/dL 11/22/2011 9:53 AM CDT [facility] RDW-CV 12.7 11.5 - 14.0 % 11/22/2011 9:53 AM CDT [facility] MPV 10.5(H) 6.0 - 9.5 fl 11/22/2011 9:53 AM CDT [facility] Hematology Reflex Status Manual Diff to follow 11/22/2011 9:53 AM T [facility] Platelet Count 316 100 - 400 x10^9/L 11/22/2011 9:53 AM T [facility] Blood specimen (specimen) BLOOD SPECIMEN / Unknown 11/22/2011 5:23 AM CDT 11/22/2011 5:43 AM CDT Selma Mccoy MD LAB - HEMATOLOGY ORD ERABLES Performing Organization Address City/State/[facility] Co de Phone Number [facility] [place] [address] * CATECHOLAMINES URINE FRACTIONATED (11/21/2011 6:27 PM CDT) Dopamine 24 Hour Urine Not Applicable ug/d 11/24/2011 6:27 AM T [employer] Comment: REFERENCE INTERVAL: Dopamine, Urine - ug/d Access complete set of age- and/or gender-specific reference intervals for this test in the [facility] Test Directory ([employer]). Collection Time Hours Random hr 11/24/2011 6:27 AM T [facility] Volume 24 Hour Urine Random mL 11/24/2011 6:27 AM CDT [facility] Epinephrine Urine ug/L 6 ug/L 11/24/2011 6:27 AM CDT [facility] Norepinephrine Urine 24 ug/L 11/24/2011 6:27 AM CDT [facility] Dopamine Urine 187 ug/L 11/24/2011 6:27 AM T [facility] Epinephrine Urine ug/g SAFE DEPOSIT BOX RENTAL CLERK 9 3 - 58 ug/g SAFE DEPOSIT BOX RENTAL CLERK 11/24/2011 6:27 AM CDT [facility] Epinephrine 24 Hour Urine Not Applicable ug/d 11/24/2011 6:27 AM T [facility] Comment: REFERENCE INTERVAL: Epinephrine, Urine - ug/d Access complete set of age- and/or gender-specific reference intervals for this test in the [facility] Test Directory ([employer]). Norepinephrine Urine ug/g SAFE DEPOSIT BOX RENTAL CLERK 36 4 - 105 ug/g SAFE DEPOSIT BOX RENTAL CLERK 11/24/2011 6:27 AM T [facility] [employer] Norepinephrine 24 Hour Urine Not Applicable ug/d 11/24/2011 6:27 AM T [facility] Comment: REFERENCE INTERVAL: Norepinephrine, Urine - ug/d Access complete set of age- and/or gender-specific reference intervals for this test in the [facility] Test Directory ([employer]). Dopamine [employer] DEPOSIT BOX RENTAL CLERK Urine 279 120 - 450 ug/g SAFE DEPOSIT BOX RENTAL CLERK 11/24/2011 6:27 AM T [facility] Interpretation Catecholamines Urine See Note 11/24/2011 6:27 AM T [facility] Comment: TEST INFORMATION: Catecholamines Panel, Urine Free [...] reference intervals for this test in the [facility] Test Directory ([employer]). Creatinine Urine 67 mg/dL 11/24/19 12 6:27 AM T [facility] [employer] Creatinine 24 Hour Urine Not Applicable 300 - 1300 mg/d 11/24/2011 6:27 AM T [facility] Urine specimen (specimen) TIMED URINE SPECIMEN / Unknown 11/21/2011 6:27 PM CDT 11/21/2011 8:59 PM CDT Selma Mccoy MD LAB - URINE CHEMISTR Y ORDERABLES [facility] [employer] [address] [place] [address] * ECHO CONSULT - PEDIATRIC (11/21/2011 1:40 PM CDT) 11/21/2011 1:40 PM CDT Narrative [facility] - 11/21/2011 3:08 PM CDT , Transthoracic Echocardiogram 2D, M-mode, Doppler, and Color Doppler Name: LAVELLE REYES MR #: [id number] Study date: 11/21/2011 Age: 11 years : 2000 Gender: Male Ht: 58 in / 147.3 cm Wt: 81.8 lb / 37.2 kg BSA: 1.25 m?? HR: BP: 101 mmHg / 59 mmHg age: LM: Maternal age: NURSE PRACTITIONER PHYSICIANS ASSISTANT: ??Anthony Sanchez MD PEDIATRIC ECHO FAMILY SERVICES WORKER: ??Raquel Chawla RDCS Indications: Concern for hypereosinophilic [...] Color Doppler Name: LAVELLE REYES MR #: [id number] Study date: 11/21/2011 Age: 11 years : 2000 Gender: Male Ht: 58 in / 147.3 cm Wt: 81.8 lb / 37.2 kg BSA: 1.25 m?? HR: BP: 101 mmHg / 59 mmHg age: LM: Maternal age: NURSE PRACTITIONER PHYSICIANS ASSISTANT: Anthony Sanchez MD PEDIATRIC ECHO FAMILY SERVICES WORKER: Raquel Chawla RDCS Indications: Concern for hypereosinophilic [...] 47.7 ml Selma Mccoy MD ECHO ORDERABLES Performing Organization Address [facility] Co de Phone Number [facility] [address] [place] [address] * (ABNORMAL) DIFFERENTIAL MANUAL (11/21/2011 4:40 AM CDT) WBC Auto 6.2 X(10)9/L 11/21/2011 7:07 AM CDT [facility] Neutrophil % Manual 70(H) 24 - 66 % 11/21/2011 7:07 AM CDT [facility] Lymphocytes % Manual 27 22 - 61 % 11/21/2011 7:07 AM T [facility] Monocytes % Manual 2(L) 3 - 15 % 2011 7:07 AM T [facility] Eosinophils % Manual 1 0 - 10 % 11/21/2011 7:07 AM T [facility] Cells Counted 100 # cells 11/21/2011 7:07 AM T [facility] Platelet Estimation Normal 11/21/2011 7:07 AM T [facility] WBC Morph Normal 11/21/2011 7:07 AM T [facility] Poikilocytosis Slight 11/21/2011 7:07 AM T [facility] Blood specimen (specimen) BLOOD SPECIMEN / Unknown 11/21/2011 4:40 AM CDT 11/21/2011 4:54 AM CDT Selma Mccoy MD LAB - HEMATOLOGY ORD ERABLES Performing Organization Address [facility] Co de Phone Number [facility] [address] [place] [address]. [place] [address] * (ABNORMAL) CBC W AUTO DIFFERENTIAL (11/21/2011 4:40 AM CDT) WBC 6.2 4.5 - 14.5 x10^9/L 11/21/2011 7:07 AM CDT [facility] RBC 4.61 4.00 - 5.20 x10^12/L 11/21/2011 7:07 AM T [facility] Hemoglobin 13.8 11.5 - 15.5 g/dL 11/21/2011 7:07 AM T [facility] Hematocrit 39.1 35.0 - 45.0 % 11/21/2011 7:07 AM CDT [facility] MCV 84.8 77.0 - 95.0 fl 11/21/2011 7:07 AM T [facility] MCH 29.9 25.0 - 33.0 pg 11/21/2011 7:07 AM T [facility] MCHC 35.3 31.0 - 37.0 gm/dL 11/21/2011 7:07 AM [facility] RDW-CV 12.8 11.5 - 14.0 % 11/21/2011 7:07 AM [facility] MPV 10.4(H) 6.0 - 9.5 fl 11/21/2011 7:07 AM [facility] Hematology Reflex Status Manual Diff to follow 11/21/2011 7:07 AM [facility] Platelet Count 306 100 - 400 x10^9/L 11/21/2011 7:07 AM T [facility] Blood specimen (specimen) BLOOD SPECIMEN / Unknown 11/21/2011 4:40 AM CDT 11/21/2011 4:54 AM CDT Selma Mccoy MD LAB - HEMATOLOGY ORD BikantaBLES Performing Organization Address [facility] Co de Phone Number [facility] [place] [address] * VASOACTIVE INTESTINE PEPTIDE (11/20/2011 2:30 PM CDT) Vasoactive Intestinal Polypeptide 37 0 - 60 pg/mL 11/26/2011 1:37 PM CDT [facility] Comment: INTERPRETIVE INFORMATION: Vasoactive Intestinal Peptide This test was developed and its performance characteristics determined by [employer]. The U.S. Food and Drug Administration has [...] Perez MD LAB - CHEMISTRY ORD ERABLES [facility] [address] [place] [address] * (ABNORMAL) ALLERGEN PEDIATRIC FOOD I PROFILE (11/20/2011 2:09 PM CDT) Allergen Egg White 0.21 <=0.34 kU/L 11/22/2011 5:47 PM CDT [facility] Allergen Milk (Cow) 2.10(H) <=0.34 kU/L 11/22/2011 5:47 PM CDT [facility] Allergen Wheat 3.16(H) <=0.34 kU/L 11/22/2011 5:47 PM CDT [facility] Allergen Oat 0.46(H) <=0.34 kU/L 11/22/2011 5:47 PM CDT [facility] Allergen Soybean <0.10 <=0.34 kU/L 11/22/2011 5:47 PM CDT [facility] Immunocap Score See Note 2 5:47 [...] O RDERABLES [facility] [address] [place] [address] * (ABNORMAL) DIFFERENTIAL MANUAL (11/20/2011 7:39 AM CDT) WBC Auto 12.7 X(10)9/L 11/20/2011 10:21 AM CDT [facility] Neutrophil % Manual 27 24 - 66 % 11/20/2011 10:21 AM T [facility] Lymphocytes % Manual 26 22 - 61 % 11/20/2011 10:21 AM T [facility] Monocytes % Manual 7 3 - 15 % 2011 10:21 AM T [facility] Eosinophils % Manual 40(H) 0 - 10 % 11/20/2011 10:21 AM T [facility] Cells Counted 100 # cells 11/20/2011 10:21 AM T [facility] WBC Morph Normal 11/20/2011 10:21 AM T [facility] Anisocytosis Slight 11/20/2011 10:21 AM T [facility] Poikilocytosis Slight 11/20/2011 10:21 AM [facility] Ovalocytes Rare 11/20/2011 10:21 AM T [facility] Blood specimen (specimen) BLOOD SPECIMEN / Unknown 11/20/2011 7:39 AM CDT 11/20/2011 8:23 AM CDT Selma Mccoy MD LAB - HEMATOLOGY ORD ERABLES Performing Organization Address City/[facility]/ZIP Co de Phone Number [facility] [address] [place] [address] * (ABNORMAL) CBC W AUTO DIFFERENTIAL (11/20/2011 7:39 AM CDT) WBC 12.7 4.5 - 14.5 x10^9/L 11/20/2011 10:21 AM T [facility] RBC 4.77 4.00 - 5.20 x10^12/L 11/20/2011 10:21 AM [facility] Hemoglobin 14.1 11.5 - 15.5 g/dL 11/20/2011 10:21 AM T [facility] Hematocrit 40.6 35.0 - 45.0 % 11/20/2011 10:21 AM CDT [facility] MCV 85.1 77.0 - 95.0 fl 11/20/2011 10:21 AM CDT [facility] MCH 29.6 25.0 - 33.0 pg 11/20/2011 10:21 AM CDT [facility] MCHC 34.7 31.0 - 37.0 gm/dL 11/20/2011 10:21 AM T [facility] RDW-CV 12.9 11.5 - 14.0 % 11/20/2011 10:21 AM T [facility] MPV 11.1(H) 6.0 - 9.5 fl 11/20/2011 10:21 AM T [facility] Hematology Reflex Status Manual Diff to follow 11/20/2011 10:21 AM T [facility] Platelet Count 297 100 - 400 x10^9/L 11/20/2011 10:21 AM T [facility] Blood specimen (specimen) BLOOD SPECIMEN / Unknown 11/20/2011 7:39 AM CDT 11/20/2011 8:23 AM CDT Selma Mccoy MD LAB - HEMATOLOGY ORD ERABLES [facility] [address] [place] [address] * CT THORAX ABDOMEN PELVIS W CONT [...] Interpretation Catecholamines See Note 11/21/2011 6:50 AM CDT [facility] Comment: Small increases in catecholamines (less [...] Selma Mccoy MD LAB - CHEMISTRY RICHIE ROBINS [facility] Organization Address City/State/ZIP Co de Phone Number [facility] [address] [place] [address] * HYDROXYINDOLACETIC ACID URINE TIMED (11/19/2011 12:03 PM CDT) 5-HIAA Urine 1.7 mg/L 11/22/2011 12:47 PM CDT [facility] Collection Time Hours Random hr 11/22/2011 12:47 PM CDT [facility] Volume 24 Hour Urine 55 mL 11/22/2011 12:47 PM CDT [facility] Creatinine Urine 84 mg/dL 11/22/19 12 12:47 PM CDT [facility] Creatinine 24 Hour Urine Not Applicable 300 - 1300 mg/d 11/22/2011 12:47 PM CDT [facility] 5-HIAA 24 Hour Urine Not Applicable 0 - 15 mg/d 11/22/2011 12:47 PM CDT [facility] 5-HIAA mg/g [employer] Urine 2 0 - 14 mg/g 11/22/2011 12:47 PM CDT [facility] Interpretation 5-HIAA Urine Normal 11/22/2011 12:47 PM [facility] Comment: INTERPRETIVE INFORMATION: 5-Hydroxyindoleacetic Acid (HIAA), Urine [...] 11/19/2011 12:03 PM CDT 11/19/2011 2:29 PM T Selma Mccoy MD LAB - URINE CHEMISTR Y ORDERABLES [facility] [address] [place] [address] * (ABNORMAL) DIFFERENTIAL MANUAL (11/19/2011 5:20 AM CDT) WBC Auto 13.9 X(10)9/L 11/19/2011 8:21 AM [facility] Neutrophil % Manual 30 24 - 66 % 11/19/2011 8:21 AM [facility] Lymphocytes % Manual 40 22 - 61 % 11/19/2011 8:21 AM [facility] Monocytes % Manual 2(L) 3 - 15 % 11/19/2011 8:21 AM [facility] Eosinophils % Manual 26(H) 0 - 10 % 11/19/2011 8:21 AM [facility] Atypical Lymphocyte % Manual 1 % 11/19/2011 8:21 AM [facility] Band % Manual 1 % 11/19/2011 8:21 AM [facility] Cells Counted 100 # cells 11/19/2011 8:21 AM [facility] RBC Morphology Normal 11/19/2011 8:21 AM [facility] WBC Morph Normal 11/19/2011 8:21 AM [facility] Blood specimen (specimen) BLOOD SPECIMEN / Unknown 11/19/2011 5:20 AM CDT 11/19/2011 5:35 AM CDT Selma Mccoy MD LAB - HEMATOLOGY ORD ERABLES Performing Organization Address City/[facility]/ZIP Co de Phone Number [facility] [address] [place] [address] * (ABNORMAL) CBC W AUTO DIFFERENTIAL (11/19/2011 5:20 AM CDT) WBC 13.9 4.5 - 14.5 x10^9/L 11/19/2011 8:21 AM CDT [facility] RBC 4.68 4.00 - 5.20 x10^12/L 11/19/2011 8:21 AM CDT [facility] Hemoglobin 14.0 11.5 - 15.5 g/dL 11/19/2011 8:21 AM CDT [facility] Hematocrit 39.8 35.0 - 45.0 % 11/19/2011 8:21 AM T [facility] MCV 85.0 77.0 - 95.0 fl 11/19/2011 8:21 AM CDT [facility] MCH 29.9 25.0 - 33.0 pg 11/19/2011 8:21 AM CDT [facility] MCHC 35.2 31.0 - 37.0 gm/dL 11/19/2011 8:21 AM T [facility] RDW-CV 13.0 11.5 - 14.0 % 11/19/2011 8:21 AM T [facility] MPV 11.2(H) 6.0 - 9.5 fl 11/19/2011 8:21 AM T [facility] Hematology Reflex Status Manual Diff to follow 11/19/2011 8:21 AM T [facility] Platelet Count 284 100 - 400 x10^9/L 11/19/2011 8:21 AM T [facility] Blood specimen (specimen) BLOOD SPECIMEN / Unknown 11/19/2011 5:20 AM CDT 11/19/2011 5:35 AM CDT Selma Mccoy MD LAB - HEMATOLOGY ORD ERABLES Performing Organization Address City/[facility]/ZIP Co de Phone Number [facility] [address] [place] [address] * (ABNORMAL) DIFFERENTIAL MANUAL (11/18/2011 5:40 AM CDT) WBC Auto 11.6 X(10)9/L 11/18/2011 6:56 AM CDT [facility] Neutrophil % Manual 27 24 - 66 % 11/18/2011 6:56 AM CDT [facility] Lymphocytes % Manual 25 22 - 61 % 11/18/2011 6:56 AM CDT [facility] Monocytes % Manual 6 3 - 15 % 11/18/2011 6:56 AM CDT [facility] Eosinophils % Manual 38(H) 0 - 10 % 11/18/2011 6:56 AM CDT [facility] Atypical Lymphocyte % Manual 4 % 11/18/2011 6:56 AM T [facility] Cells Counted 100 # cells 11/18/2011 6:56 AM CDT [facility] Platelet Estimation Normal 11/18/2011 6:56 AM CDT [facility] RBC Morphology Normal 11/18/2011 6:56 AM T [facility] WBC Morph Normal 11/18/2011 6:56 AM T [facility] Blood specimen (specimen) BLOOD SPECIMEN / Unknown 11/18/2011 5:40 AM CDT 11/18/2011 5:49 AM CDT Selma Mccoy MD LAB - HEMATOLOGY ORD ERABLES Performing Organization Address City/State/[facility] Co de Phone Number [facility] [address] [place] [address] * (ABNORMAL) CBC W AUTO DIFFERENTIAL (11/18/2011 5:40 AM CDT) Pathologist [facility] WBC 11.6 4.5 - 14.5 x10^9/L 11/18/2011 6:56 AM T [facility] RBC 4.75 4.00 - 5.20 x10^12/L 11/18/2011 6:56 AM CDT [facility] Hemoglobin 14.2 11.5 - 15.5 g/dL 11/18/2011 6:56 AM T [facility] Hematocrit 40.7 35.0 - 45.0 % 11/18/2011 6:56 AM T [facility] MCV 85.7 77.0 - 95.0 fl 11/18/2011 6:56 AM T [facility] MCH 29.9 25.0 - 33.0 pg 11/18/2011 6:56 AM T [facility] MCHC 34.9 31.0 - 37.0 gm/dL 11/18/2011 6:56 AM T [facility] RDW-CV 13.1 11.5 - 14.0 % 11/18/2011 6:56 AM T [facility] MPV 10.6(H) 6.0 - 9.5 fl 11/18/2011 6:56 AM T [facility] Hematology Reflex Status Manual Diff to follow 11/18/2011 6:56 AM T [facility] Platelet Count 267 100 - 400 x10^9/L 11/18/2011 6:56 AM T [facility] Blood specimen (specimen) BLOOD SPECIMEN / Unknown 11/18/2011 5:40 AM CDT 11/18/2011 5:49 AM CDT Selma Mccoy MD LAB - HEMATOLOGY ORD ERABLES Performing Organization Address City/[facility] Phone Number [facility] [address] [place] [phone] * (ABNORMAL) DIFFERENTIAL MANUAL (11/17/2011 5:55 AM CDT) WBC Auto 16.9 X(10)9/L 11/17/2011 6:59 AM T [facility] Neutrophil % Manual 40 24 - 66 % 11/17/2011 6:59 AM [facility] Lymphocytes % Manual 20(L) 22 - 61 % 11/17/2011 6:59 AM T [facility] Monocytes % Manual 7 3 - 15 % 2011 6:59 AM T [facility] Eosinophils % Manual 29(H) 0 - 10 % 11/17/2011 6:59 AM T [facility] Band % Manual 4 % 11/17/2011 6:59 AM T [facility] Cells Counted 100 # cells 11/17/2011 6:59 AM [facility] Platelet Estimation Adequate platelets 11/17/2011 6:59 AM [facility] WBC Morph Normal 11/17/2011 6:59 AM [facility] Anisocytosis Slight 11/17/2011 6:59 AM [facility] Poikilocytosis Slight 11/17/2011 6:59 AM CDT [facility] Blood specimen (specimen) BLOOD SPECIMEN / Unknown 11/17/2011 5:55 AM CDT 11/17/2011 6:00 AM CDT Selma Mccoy MD LAB - HEMATOLOGY ORD ERABLES Performing Organization Address City/State/[facility] Co de Phone Number [facility] [address] [place] [address] * (ABNORMAL) CBC W AUTO DIFFERENTIAL (11/17/2011 5:55 AM CDT) WBC 16.9(H) 4.5 - 14.5 x10^9/L 11/17/2011 6:58 AM CDT [facility] RBC 4.60 4.00 - 5.20 x10^12/L 11/17/2011 6:58 AM T [facility] Hemoglobin 14.0 11.5 - 15.5 g/dL 11/17/2011 6:58 AM T [facility] Hematocrit 39.0 35.0 - 45.0 % 11/17/2011 6:58 AM T [facility] MCV 84.8 77.0 - 95.0 fl 11/17/2011 6:58 AM T [facility] MCH 30.4 25.0 - 33.0 pg 11/17/2011 6:58 AM [facility] MCHC 35.9 31.0 - 37.0 gm/dL 11/17/2011 6:58 AM T [facility] RDW-CV 13.2 11.5 - 14.0 % 11/17/2011 6:58 AM T [facility] MPV 11.2(H) 6.0 - 9.5 fl 11/17/2011 6:58 AM T [facility] Hematology Reflex Status Manual Diff to follow 11/17/2011 6:58 AM T [facility] Platelet Count 232 100 - 400 x10^9/L 11/17/2011 6:58 AM T [facility] Blood specimen (specimen) BLOOD SPECIMEN / Unknown 11/17/2011 5:55 AM CDT 11/17/2011 6:00 AM CDT Selma Mccoy MD LAB - HEMATOLOGY ORD ERABLES Performing Organization Address City/[facility]/ZIP Co de Phone Number [facility] [address] [place] [address] * EOSINOPHIL URINE SMEAR (11/16/2011 10:14 PM CDT) Eosinophils Urine NONE SEEN NONE SEEN 11/16/2011 11:49 PM CDT [facility] Urine specimen (specimen) URINE / Unknown 11/16/2011 10:14 PM CDT 11/16/2011 10:35 PM CDT Jacqueline Coleman Luiscriselda SWIMMING INSTRUCTOR-SALES AND CATERING COORDINATOR LAB - URINE SUSAN LUZ MARIA ORDERABLES Performing Organization Address [facility] Co de Phone Number [facility] [address] [place] [address] * (ABNORMAL) URINALYSIS ROUTINE AUTO (11/16/2011 10:13 PM CDT) Color UA Yellow Straw, Yellow, Dark Yellow 11/16/2011 10:50 PM T [facility] Clarity UA Clear Clear 11/16/2011 10:50 PM T [facility] Specific [place] UA 1.010 1.003 - 1.030 11/16/2011 10:50 PM T [facility] pH UA 7.0 5.0 - 8.0 11/16/2011 10:50 PM T [facility] Protein UA Negative Negative 11/16/2011 10:50 PM T [facility] Blood UA Negative Negative 11/16/2011 10:50 PM T [facility] Leukocyte UA Negative Negative 11/16/2011 10:50 PM T [facility] Nitrite UA Negative Negative 11/16/2011 10:50 PM T [facility] Glucose UA Negative Negative 11/16/2011 10:50 PM T [facility] Ketone UA Trace(A) Negative 11/16/2011 10:50 PM CDT [facility] Bilirubin UA Negative Negative 11/16/2011 10:50 PM T [facility] Urobilinogen UA 0.2 0.2 - 1.0 EU/dL 11/16/2011 10:50 PM T [facility] Urine Microscopy Urine microscopy to follow (none) 11/16/2011 10:50 PM CDT [facility] Urine specimen (specimen) URINE SPECIMEN OBTAINED BY CLEAN CATCH PROCEDURE / Unknown 11/16/2011 10:13 PM CDT 11/16/2011 10:35 PM CDT Jacqueline Brower SWIMMING INSTRUCTOR-SALES AND CATERING COORDINATOR LAB - URINALYSI S ORDERABLES Performing Organization Address [facility] Co de Phone Number [facility] [address] [place] [address] * URINALYSIS MICROSCOPIC ONLY (11/16/2011 10:13 PM CDT) RBC UA 0-5 0 - 5 # /hpf 11/16/2011 10:50 PM CDT [facility] WBC UA 0-5 0 - 5 # /hpf 11/16/2011 10:50 PM CDT [facility] Bacteria UA Trace None, Trace 11/16/2011 10:50 PM CDT [facility] Epithelial Cell UA 0-5 0 - 5 11/16/2011 10:50 PM CDT [facility] Mucus UA Trace None, Trace 11/16/2011 10:50 PM CDT [facility] Urine specimen (specimen) URINE SPECIMEN OBTAINED BY CLEAN CATCH PROCEDURE / Unknown 11/16/2011 10:13 PM CDT 11/16/2011 10:35 PM CDT Jacqueline Coleman Leonarda SWIMMING INSTRUCTOR-SALES AND CATERING COORDINATOR LAB - URINALYSI S ORDERABLES Performing Organization Address [facility] Co de Phone Number [facility] [address] [place] [address] * ENDOSCOPY, COLON, DIAGNOSTIC (11/16/2011 5:19 PM CDT) Narrative Transcriptions Kenzie Cobb MD - 11/16/2011 5:19 PM CDT Kenzie Cobb MD GI PROCEDURE ORDERAB LES Performing Organization Address [facility] Co de Phone Number [facility] [address] [place] [address] * EGD (11/16/2011 5:01 PM CDT) Narrative Transcriptions Kenzie Cobb MD - 11/16/2011 5:00 PM CDT Kenzie Cobb MD GI PROCEDURE ORDERAB LES Performing Organization Address City/[facility]/ZIP Co de Phone Number [facility] [address] [facility] [address] * LEUKEMIA PANEL (11/16/2011 3:42 PM CDT) Pathologist [facility] Leukemia Panel Flow Cyto See Scanned Report 11/26/2011 10:42 AM CDT [facility] Blood specimen (specimen) BONE MARROW SPECIMEN / Unknown 11/16/2011 3:42 PM CDT 11/16/2011 3:45 PM CDT Farhana Perez MD LAB - PATHOLOGY/CYTO LOGY ORDERABLES Performing Organization Address [facility] de Phone Number [facility] [address] * GROSS + MICRO EXAM (STL) (11/16/2011 3:30 PM CDT) Case Report Surgical Pathology Report ? Case: [id number] ? -------- Authorizing Provider: ??Stuart Miller MD ?Ordering Provider: ?? Kenzie Cobb MD ? Ordering Location: ? [facility] ?Collected: ? 11/16/2011 ??3:30 PM ? Pathologist: ? Arsenio Uddin, MD ? Received: ?11/19/2011 ??6:28 AM ?Signed Out: ?11/23/2011 ??4:19 PM (Final) ? Specimens: ?? A) - Duodenum ? B) - Stomach ? C) - Esophagus, Distal ? D) - Esophagus, Mid/Proximal ? E) - Colon, Right ? F) - Colon, Left ? G) - Rectosigmoid ? 11/23/2011 4:19 PM CDT [facility] Final Diagnosis A. ??DUODENUM, BIOPSY: [...] concurs with the diagnosis. 11/23/2011 4:19 PM [facility] Clinical History The patient is a 11-year-old boy with 5 weeks of diarrhea, significant peripheral eosinophilia (40%), anti-helminth therapy with no symptom improvement. The patient has received upper endoscopy and colonoscopic biopsies. Operative findings include linear furrows, trachealization of esophagus, erythema of distal stomach, scattered erythema bulb of duodenum, normal colon. 11/23/2011 4:19 PM [facility] Gross Description The specimens are submitted [...] C, esophagus distal, are three tiny soft white-santioz tissue fragments ranging in size from 0.1 [...] toto as G. ??(YC/mal) 11/23/2011 4:19 PM CDT [facility] Microscopic Description A) 3 H&E, [...] is identified. ??(NU/rtc) 11/23/2011 4:19 PM CDT [facility] Disclaimer This case has been personally reviewed and interpreted by the attending (teaching) pathologist. 11/23/2011 4:19 PM CDT [facility] Synoptic Report 11/23/2011 4:19 PM CDT [facility] Miscellaneous samples (specimen) PART OF [...] Miller MD LAB - PATHOLOGY/CYT OLOGY ORDERABLES [facility] [address] [place] [address] * (ABNORMAL) DIFFERENTIAL MANUAL (11/16/2011 3:00 PM CDT) [facility] WBC Auto 11.9 X(10)9/L 11/16/2011 4:45 PM CDT [facility] Neutrophil % Manual 24 24 - 66 % 11/16/2011 4:45 PM CDT [facility] Lymphocytes % Manual 29 22 - 61 % 11/16/2011 4:45 PM CDT [facility] Monocytes % Manual 6 3 - 15 % 11/16/2011 4:45 PM CDT [facility] Eosinophils % Manual 40(H) 0 - 10 % 11/16/2011 4:45 PM CDT [facility] Atypical Lymphocyte % Manual 1 % 11/16/2011 4:45 PM CDT [facility] Cells Counted 100 # cells 11/16/2011 4:45 PM CDT [facility] Platelet Estimation Adequate platelets 11/16/2011 4:45 PM CDT [facility] RBC Morphology Normal 11/16/2011 4:45 PM CDT [facility] WBC Morph Normal 11/16/2011 4:45 PM CDT [facility] Blood specimen (specimen) BLOOD SPECIMEN / Unknown 11/16/2011 3:00 PM CDT 11/16/2011 3:19 PM CDT Selma Mccoy MD LAB - HEMATOLOGY ORD ERABLES Performing Organization Address City/[facility]/ZIP Co de Phone Number [facility] [address] [place] [address] * URIC ACID BLOOD (11/16/2011 3:00 PM CDT) [facility] Uric Acid 3.2 2.0 - 5.5 mg/dL 11/16/2011 3:52 PM CDT [facility] Blood specimen (specimen) BLOOD SPECIMEN / Unknown 11/16/2011 3:00 PM CDT 11/16/2011 3:19 PM CDT Farhana Perez MD LAB - CHEMISTRY ORDE JULIENNE [facility] [address] [place] [address] * LDH BLOOD (11/16/2011 3:00 PM CDT) [facility] LDH 215 140 - 260 U/L 11/16/2011 3:52 PM CDT [facility] Blood specimen (specimen) BLOOD SPECIMEN / Unknown 11/16/2011 3:00 PM CDT 11/16/2011 3:19 PM CDT Farhana Perez MD LAB - CHEMISTRY RICHIE ROBINS Performing Organization Address City/State/[facility] Co me Phone Number [facility] [address] [facility] [place] [address] * BONE MARROW BIOPSY (STL) (11/16/2011 3:00 PM CDT) [facility] Case Report Bone Marrow Report ?Case: [id number] ? --- Authorizing Provider: ??Farhana Perez MD [...] Bone Marrow Aspirate ? 11/29/2011 8:28 PM CDT [facility] Final Diagnosis BONE MARROW, ASPIRATE SMEAR, CROSS SECTION, AND CORE BIOPSY: - HYPOCELLULAR BONE MARROW (CELLULARITY 40 - 50%) WITH TRILINEAGE HEMATOPOIESIS. - PERIPHERAL AND MARROW EOSINOPHILIA (APPROXIMATELY 32%). - SEE COMMENT AND DESCRIPTION. COMMENT: ??The flow cytometric analysis performed on this bone marrow by [facility] ([id number]) demonstrated no immunophenotypic evidence of a non-Hodgkin [...] concurs with the diagnosis. 11/29/2011 8:28 PM T [facility] Clinical History The patient is a 11-year-old male with significant peripheral eosinophilia and five weeks history of diarrhea. 11/29/2011 8:28 PM CDT [facility] Peripheral Smear Description ?Peripheral Blood [...] are identified. ??(NU/mal 11/29/2011 8:28 PM CDT [facility] Disclaimer This case has been personally reviewed and interpreted by the attending (teaching) pathologist. 11/29/2011 8:28 PM CDT [facility] Synoptic Report 11/29/2011 8:28 PM CDT [facility] Miscellaneous samples (specimen) SPECIMEN FROM [...] - PATHOLOGY/CYTO LOGY ORDERABLES Performing Organization Address City/State/[facility] Co de Phone Number [facility] [place] [address] * (ABNORMAL) CBC W AUTO DIFFERENTIAL (11/16/2011 3:00 PM CDT) WBC 11.9 4.5 - 14.5 x10^9/L 11/16/2011 4:45 PM CDT [facility] RBC 4.68 4.00 - 5.20 x10^12/L 11/16/2011 4:45 PM CDT [facility] Hemoglobin 14.0 11.5 - 15.5 g/dL 11/16/2011 4:45 PM CDT [facility] Hematocrit 39.0 35.0 - 45.0 % 11/16/2011 4:45 PM CDT [facility] MCV 83.3 77.0 - 95.0 fl 11/16/2011 4:45 PM CDT [facility] MCH 29.9 25.0 - 33.0 pg 11/16/2011 4:45 PM CDT [facility] MCHC 35.9 31.0 - 37.0 gm/dL 11/16/2011 4:45 PM CDT [facility] RDW-CV 12.7 11.5 - 14.0 % 11/16/2011 4:45 PM CDT [facility] MPV 10.5(H) 6.0 - 9.5 fl 11/16/2011 4:45 PM CDT [facility] Hematology Reflex Status Manual Diff to follow 11/16/2011 4:45 PM CDT [facility] Platelet Count 278 100 - 400 x10^9/L 11/16/2011 4:45 PM CDT [facility] Blood specimen (specimen) BLOOD SPECIMEN / Unknown 11/16/2011 3:00 PM CDT 11/16/2011 3:19 PM CDT Selma Mccoy MD LAB - HEMATOLOGY ORD ERABLES Performing Organization Address [facility] Co de Phone Number [facility] [address] [place] [address] * LUC BLOOD SCREEN W/REFLEX TITER (11/16/2011 3:00 PM CDT) LUC Negative Negative 11/19/2011 9:21 AM CDT [facility] Blood specimen (specimen) BLOOD SPECIMEN / Unknown 11/16/2011 3:00 PM CDT 11/16/2011 3:19 PM CDT Jacqueline Brower SWIMMING INSTRUCTOR-SALES AND CATERING COORDINATOR LAB - CHEMISTRY ORDERABLES Performing Organization Address [facility] Co de Phone Number [facility] [address] * SED RATE WESTERGREN (11/16/2011 3:00 PM CDT) Erythrocyte Sedimentation Rate Westergren 4 0 - 13 mm/hr 11/16/2011 4:38 PM CDT [facility] Blood specimen (specimen) BLOOD SPECIMEN / Unknown 11/16/2011 3:00 PM CDT 11/16/2011 3:19 PM CDT Jacqueline Brower SWIMMING INSTRUCTOR-SALES AND CATERING COORDINATOR LAB - HEMATOLOG Y ORDERABLES Performing Organization Address [facility] Co de Phone Number [facility] [address] [place] [address] * C-REACTIVE PROTEIN (11/16/2011 3:00 PM CDT) [facility] C-Reactive Protein <0.2 <=0.5 mg/dL 11/16/2011 3:54 PM CDT [facility] Blood specimen (specimen) BLOOD SPECIMEN / Unknown 11/16/2011 3:00 PM CDT 11/16/2011 3:19 PM CDT Jacqueline Brower SWIMMING INSTRUCTOR-SALES AND CATERING COORDINATOR LAB - CHEMISTRY ORDERABLES Performing Organization Address [facility] de Phone Number [facility] [address] [place] [address] * IGE BLOOD (11/16/2011 3:00 PM CDT) [facility] IgE Total 127.8 <200 IU/ML 11/16/2011 3:54 PM CDT [facility] Blood specimen (specimen) BLOOD SPECIMEN / Unknown 11/16/2011 3:00 PM CDT 11/16/2011 3:19 PM CDT Jacqueline F Leonarda SWIMMING INSTRUCTOR-SALES AND CATERING COORDINATOR LAB - CHEMISTRY ORDERABLES Performing Organization Address [facility] de Phone Number [facility] [address] [place] [address] * CYTOGENETICS CANCER PANEL (11/16/2011 12:00 PM CDT) [facility] Indication for Study ANLL / Abdominal Pain / Eosinophilia 11/27/2011 12:03 PM CDT [facility] Results Cytogenetics Analysis of 20 cells (8 cells karyotyped, GTL-banding) from 24-hour unstimulated and 72-hour Interleukin stimulated bone marrow cultures showed the following chromosome pattern: 46,XY[20] Addendum 11/23/2011 FISH results: Fluorescence In-Situ Hybridization (FISH): Analysis of 200 ??interphase cells hybridized with CHIC2 ??probes* (FIP1L1,LNX,PDGFR A), ??directed onto 4q12, CSF1R (D5S23,D9S602,CSF 1R/PDGFRB) directed onto 9s23-28 region, FGFR1 and CEP8 directed onto 8p11.2 and chromosome 8 centromere, and CBFB dual color breakapart probes showed the following results showed the following results: nuc promise(FIP1L1,LNX,PD GFRA)x2[198/200], (D5S23,M0H364,CSF 1R/PDGFRBx2)[198/ 200],(FGFR1,CEP8) x2[198/200],(CBFB 1x2)[196/200] ??Normal Addendum 11/26/2011 Array-CGH results were done for validation purpose and therefore no charge was made: Bone marrow and control DNA were labeled with different fluorescent tags and hybridized onto iCrumz-12/Apertio-18. Array-CGH analysis of both DNAs revealed no clinically significant deviation indicating no deletion nor duplication: arr(1-22)x2,(XY)x 1 Normal Male 11/27/2011 12:03 PM [facility] Interpretation Male chromosome analysis [...] (Comparative Genome Hybridization) or Chromosomal Microarray Analysis (NYLON MENDER) to rule out gains or losses. Array-CGH using iCrumz-12/hg-18 revealed no clinically significant abnormality for the [...] this assay. 11/27/2011 12:03 PM [facility] Disclaimer *This test was developed, and its performance characteristics determined by [facility] as required by CLIA '88 Regulations. It has not been cleared or approved for specific uses by the U.S. Food and Drug Administration. The FDA has determined that such clearance or approval is not necessary. This test is used for clinical purposes. It should not be reported as investigational or for research. 11/27/2011 12:03 PM CDT [facility] Other (qualifier value) BONE MARROW SPECIMEN / Unknown 11/16/2011 12:00 PM CDT 11/16/2011 6:34 PM CDT Farhana Perez MD LAB - PATHOLOGY/CYTO LOGY ORDERABLES [facility] [address] [place] [address] * (ABNORMAL) BASIC METABOLIC PANEL (CALCIUM TOTAL) (11/15/2011 4:52 PM CDT) Glucose 103 70 - 105 mg/dL 11/15/2011 5:50 PM [facility] Sodium 139 136 - 145 mmol/L 11/15/2011 5:50 PM [facility] Potassium 3.8 3.5 - 5.1 mmol/L 11/15/2011 5:50 PM [facility] Chloride 109(H) 98 - 107 mmol/L 11/15/2011 5:50 PM [facility] CO2 20 20 - 28 mmol/L 11/15/2011 5:50 PM [facility] Calcium 8.76(L) 8.92 - 10.32 mg/dL 11/15/2011 5:50 PM [facility] Anion Gap 10 5 - 20 mmol/L 11/15/2011 5:50 PM [facility] BUN 5.1(L) 6.1 - 21.0 mg/dL 11/15/2011 5:50 PM [facility] Creatinine 0.50(L) 0.62 - 1.00 mg/dL 11/15/2011 5:50 PM [facility] eGFR by MDRD ml/min/1. 73m2 11/15/2011 5:50 PM [facility] Comment:eGFR calculations ar e not performed for children under 18 years old. eGFR by MDRD ml/min/1. 73m2 11/15/2011 5:50 PM CDT [facility] Comment:eGFR calculations ar e not performed for children under 18 years old. Blood specimen (specimen) BLOOD SPECIMEN / Unknown 11/15/2011 4:52 PM CDT 11/15/2011 5:15 PM CDT Augie Ellis MD LAB - CHEMISTRY RICHIE ROBINS [facility] [address] [place] [address] * O+P PANEL (11/15/2011 11:07 AM CDT) Source 11/16/2011 4:00 PM CDT [facility] Comment Ref Lab 2 4:00 PM CDT [facility] Comment 11/16/2011 4:00 PM CDT [facility] O+P Direct Wet Mount 11/16/2011 4:00 PM CDT [facility] O+P Concentrate Wet Mount 11/16/2011 4:00 PM CDT [facility] O+P Concentrate Formalin NO ova and parasites seen. 11/16/2011 4:00 PM CDT [facility] Trichrome Stain NO ova and parasites seen. 11/16/2011 4:00 PM CDT [facility] O+P Notification 11/16/19 12 4:00 PM CDT [facility] Additional Comment 11/16/2011 4:00 PM CDT [facility] Comment ONLY 1 O+P EXAM PER 24 HOURS - MAXIMUM OF 3 O+P EXAMS PER PATIENT WILL BE EVALUATED. 11/16/2011 4:00 PM CDT [facility] Stool specimen (specimen) STOOL SPECIMEN / Unknown 11/15/2011 11:07 AM CDT 11/15/2011 11:24 AM CDT Isatu Madrid MD LAB - MICROB IOLOGY ORDERABLES [facility] [address] [place] [id number] * (ABNORMAL) TISSUE TRANSGLUTAMINASE AB IGA (11/15/2011 4:51 AM CDT) Tissue Transglutaminase (tTG) Ab, IgA 35(H) 0 - 19 Units 11/17/2011 6:43 AM CDT [facility] [employer] Comment: INTERPRETIVE INFORMATION: Tissue Transglutaminase (tTG) Antibody, [...] - SEROLOGY OR DERABLES Performing Organization Address City/State/[facility] Co de Phone Number [facility] [address] [place] [address] * (ABNORMAL) CELIAC DISEASE DUAL AG SCREEN W REFLEX (11/15/2011 4:51 AM CDT) Celiac Disease Dual Antigen 33(H) 0 - 19 Units 11/19/2011 12:21 PM CDT [facility] [employer] Comment: INTERPRETIVE INFORMATION: Celiac Disease Dual Antigen [...] - CHEMISTRY O RDERABLES Performing Organization Address City/State/[facility] Co de Phone Number [facility] [address] [place] [address] * (ABNORMAL) CBC W AUTO DIFFERENTIAL (11/15/2011 4:51 AM CDT) WBC 14.6(H) 4.5 - 14.5 x10^9/L 11/15/2011 5:53 AM CDT [facility] RBC 4.68 4.00 - 5.20 x10^12/L 11/15/2011 5:53 AM CDT [facility] Hemoglobin 14.0 11.5 - 15.5 g/dL 11/15/2011 5:53 AM CDT [facility] Hematocrit 39.9 35.0 - 45.0 % 11/15/2011 5:53 AM CDT [facility] MCV 85.3 77.0 - 95.0 fl 11/15/2011 5:53 AM CDT [facility] MCH 29.9 25.0 - 33.0 pg 11/15/2011 5:53 AM CDT [facility] MCHC 35.1 31.0 - 37.0 gm/dL 11/15/2011 5:53 AM CDT [facility] RDW-CV 12.9 11.5 - 14.0 % 11/15/2011 5:53 AM CDT [facility] MPV 10.4(H) 6.0 - 9.5 fl 11/15/2011 5:53 AM CDT [facility] Hematology Reflex Status Manual Diff to follow 11/15/2011 5:53 AM CDT [facility] Platelet Count 267 100 - 400 x10^9/L 11/15/2011 5:53 AM CDT [facility] Blood specimen (specimen) BLOOD SPECIMEN / Unknown 11/15/2011 4:51 AM CDT 11/15/2011 5:12 AM CDT Nathan Hester MD LAB - HEMATOLOGY ORDERABLES [facility] [address] [place] [address] * (ABNORMAL) GLIADIN ANTIBODY IGA (11/15/2011 4:51 AM CDT) Pathologist [facility] Deamidated Gliadin Peptide (DGP) Ab, IgA 20(H) 0 - 19 Units 11/19/2011 9:29 PM CDT [facility] [employer] Comment: INTERPRETIVE INFORMATION: Deamidated Gliadin Peptide (DGP) Ab, IgA 19 Units or less: ........... Negative 20-30 Units: ................ Weak Positive 31 Units or greater: ........ Positive Blood specimen (specimen) BLOOD SPECIMEN / Unknown 11/15/2011 4:51 AM CDT 11/15/2011 5:12 AM CDT Nathan Hester MD LAB - SEROLOGY OR DERABLES [facility] [employer] [place] [address] [place] [address] * (ABNORMAL) DIFFERENTIAL MANUAL (11/15/2011 4:51 AM CDT) WBC Auto 14.6 X(10)9/L 11/15/2011 5:53 AM CDT [facility] Neutrophil % Manual 24 24 - 66 % 11/15/2011 5:53 AM CDT [facility] Lymphocytes % Manual 26 22 - 61 % 11/15/2011 5:53 AM CDT [facility] Monocytes % Manual 4 3 - 15 % 11/15/2011 5:53 AM CDT [facility] Eosinophils % Manual 40(H) 0 - 10 % 11/15/2011 5:53 AM T [facility] Basophils % Manual 1 0 - 2 % 11/15/2011 5:53 AM T [facility] Atypical Lymphocyte % Manual 5 % 11/15/2011 5:53 AM T [facility] Cells Counted 100 # cells 11/15/2011 5:53 AM T [facility] Platelet Estimation Normal 11/15/2011 5:53 AM T [facility] RBC Morphology Normal 11/15/2011 5:53 AM T [facility] WBC Morph Normal 11/15/2011 5:53 AM T [facility] Blood specimen (specimen) BLOOD SPECIMEN / Unknown 11/15/2011 4:51 AM CDT 11/15/2011 5:12 AM CDT Nathan Hester MD LAB - HEMATOLOGY ORDERABLES Performing Organization Address City/[facility] Co de Phone Number [facility] [address] [place] [address] * LAB MISC TEST (11/13/2011 4:57 PM CDT) Pathologist [facility] Test Name CALPROTECTIN, FECAL 11/21/2011 10:27 PM CDT [facility] Test Result See Scanned Report (none) 11/21/2011 10:27 PM CDT [facility] Comment Ref Lab Test performed by ARUro Jock 11/21/2011 10:27 PM CDT [facility] Other (qualifier value) BLOOD SPECIMEN / Unknown 11/13/2011 4:57 PM CDT 11/13/2011 6:11 PM CDT Isatu Madrid MD LAB SEND OUT Performing Organization Address [facility] Co de Phone Number [facility] [address] [place] [address] * (ABNORMAL) [id number] FECES (11/13/2011 4:57 PM CDT) [facility] Rqxej-2-Gccmhi ypsin Feces 0.75(H) 0.00 - 0.62 mg/g 11/18/2011 3:14 PM CDT [facility] [employer] Stool specimen (specimen) STOOL SPECIMEN / Unknown 11/13/2011 4:57 PM CDT 11/13/2011 6:11 PM CDT Isatu Madrid MD LAB - BODY F LUID ORDERABLES Performing Organization Address [facility] Co de Phone Number [facility] [address] [place] [address] * FECAL LEUKOCYTES (11/13/2011 3:12 PM CDT) Pathologist [facility] WBC Feces/HPF No Fecal WBC's seen (none) 11/13/2011 10:30 PM CDT [facility] Stool specimen (specimen) STOOL SPECIMEN / Unknown 11/13/2011 3:12 PM CDT 11/13/2011 3:26 PM CDT Nathan Hester MD LAB - BODY FLUID ORDERABLES Performing Organization Address [facility] Co de Phone Number [facility] [place] [address] * CULTURE STOOL PANEL (11/13/2011 3:11 PM CDT) Pathologist [facility] Culture SEE BELOW 11/15/2011 7:29 AM CDT [facility] Comment: - Final - Negative for Shiga toxin by ?? immunoassay CULTURE No growth of Salmonella, ?? Shigella, Campylobacter, ?? Yersinia, E.coli [id number] Stool specimen (specimen) STOOL SPECIMEN / Unknown 11/13/2011 3:11 PM CDT 11/13/2011 3:26 PM CDT Isatu Madrid MD LAB - MICROB IOLOGY ORDERABLES Performing Organization Address [facility] Co de Phone Number [facility] [address] [place] [address], [facility] * O+P PANEL (11/13/2011 3:11 PM CDT) Source 11/14/2011 4:17 PM CDT [facility] Comment Ref Lab 2 4:17 PM CDT [facility] Comment 11/14/2011 4:17 PM CDT [facility] O+P Direct Wet Mount 11/14/2011 4:17 PM CDT [facility] O+P Concentrate Wet [place] 11/14/2011 4:17 PM CDT [facility] O+P Concentrate Formalin NO ova and parasites seen. 11/14/2011 4:17 PM CDT [facility] Trichrome Stain NO ova and parasites seen. 11/14/2011 4:17 PM CDT [facility] O+P Notification 11/14/19 12 4:17 PM CDT [facility] Additional Comment 11/14/2011 4:17 PM CDT [facility] Comment ONLY 1 O+P EXAM PER 24 HOURS - MAXIMUM OF 3 O+P EXAMS PER PATIENT WILL BE EVALUATED. 11/14/2011 4:17 PM CDT [facility] Stool specimen (specimen) STOOL SPECIMEN / Unknown 11/13/2011 3:11 PM CDT 11/14/2011 8:19 AM CDT Nathan Hester MD LAB - MICROBIOLOG Y ORDERABLES [facility] [address] [place] [address], [facility] * EKG 15-LEAD (11/13/2011 11:04 AM CDT) Ventricular Rate 72 BPM CG MUSE Atrial Rate 72 BPM CG MUSE P-R Interval 144 ms CG MUSE QRS Duration ms 82 ms CG MUSE Q-T Interval ms 394 ms CG MUSE QTC Calculation (Bezet) 431 ms CG MUSE Calculated P [place] 35 degrees CG MUSE Calculated R [place] 46 degrees CG MUSE Calculated T [place] 34 degrees CG MUSE Interpretation EKG * Pediatric ECG Analysis * Normal sinus rhythm Normal ECG No previous ECGs available Confirmed by MD Helio, Sterling ([id number]) on 11/13/2011 5:23:15 PM CG MUSE [...] 4.5 - 14.5 x10^9/L 11/13/2011 5:03 AM [facility] RBC 4.64 4.00 - 5.20 x10^12/L 11/13/2011 5:03 AM [facility] Hemoglobin 14.0 11.5 - 15.5 g/dL 11/13/2011 5:03 AM [facility] Hematocrit 39.6 35.0 - 45.0 % 11/13/2011 5:03 AM [facility] MCV 85.3 77.0 - 95.0 fl 11/13/2011 5:03 AM [facility] MCH 30.2 25.0 - 33.0 pg 11/13/2011 5:03 AM [facility] MCHC 35.4 31.0 - 37.0 gm/dL 11/13/2011 5:03 AM [facility] RDW-CV 13.1 11.5 - 14.0 % 11/13/2011 5:03 AM [facility] MPV 9.9(H) 6.0 - 9.5 fl 11/13/2011 5:03 AM [facility] Hematology Reflex Status Manual Diff to follow 11/13/2011 5:03 AM T [facility] Platelet Count 257 100 - 400 x10^9/L 11/13/2011 5:03 AM CDT [facility] Blood specimen (specimen) BLOOD SPECIMEN / Unknown 11/13/2011 4:49 AM CDT 11/13/2011 4:52 AM CDT Ezekiel Doshi MD LAB - HEMATOLOGY ORDERABLES Performing Organization Address [facility] Co de Phone Number [facility] [address] [place] [address] * (ABNORMAL) IMMUNOGLOBULINS PANEL (11/13/2011 4:49 AM CDT) Pathologist [facility] IgA 100 63 - 484 mg/dL 11/13/2011 5:31 AM T [facility] IgG 360(L) 540 - 1,822 mg/dL 11/13/2011 5:31 AM T [facility] IgM 41 22 - 240 mg/dL 11/13/2011 5:31 AM T [facility] Blood specimen (specimen) BLOOD SPECIMEN / Unknown 11/13/2011 4:49 AM CDT 11/13/2011 4:52 AM CDT Ezekiel Doshi MD LAB - CHEMISTRY O RDERABLES Performing Organization Address [facility] de Phone Number [facility] [address] [place] [address] * LAB MISC TEST (11/13/2011 4:49 AM CDT) Test Name TRICHINELLA ANTIBODY BY JOHN PAUL 11/21/2011 10:29 PM T [facility] Test Result See Scanned Report (none) 11/21/2011 10:29 PM T [facility] Comment Ref Lab Test performed by [email or web address] 11/21/2011 10:29 PM T [facility] Other (qualifier value) BLOOD SPECIMEN / Unknown 11/13/2011 4:49 AM CDT 11/13/2011 4:52 AM CDT Stuart Miller MD LAB SEND OUT Performing Organization Address City/State/[facility] Co de Phone Number [facility] [place] [address] * TOXOCARA ANTIBODY (11/13/2011 4:49 AM CDT) Toxocara Antibody 0.030 <=0.299 OD 11/17/2011 10:12 PM CDT [facility] Comment: INTERPRETIVE INFORMATION: Toxocara Ab, IgG by [...] Miller MD LAB - CHEMISTRY ORD ERABLES [facility] [address] [place] [address] * ISOHEMAGGLUTININS (11/13/2011 4:49 AM CDT) Pathologist [facility] ABO Rh O Positive 11/13/2011 4:14 PM CDT [facility] Anti A Cell Titer 1:512 11/13/2011 4:14 PM CDT [facility] Anti-B Cell Titer 1:16 11/13/2011 4:14 PM CDT [facility] Blood specimen (specimen) BLOOD SPECIMEN / Unknown 11/13/2011 4:49 AM CDT 11/13/2011 4:52 AM CDT Stuart Miller MD LAB - BLOOD BANK OR DERABLES [facility] [address] [place] [address] * (ABNORMAL) DIFFERENTIAL MANUAL (11/13/2011 4:49 AM CDT) Pathologist [facility] WBC Auto 12.8 X(10)9/L 11/13/2011 5:58 AM T [facility] Neutrophil % Manual 26 24 - 66 % 11/13/2011 5:58 AM T [facility] Lymphocytes % Manual 25 22 - 61 % 11/13/2011 5:58 AM T [facility] Monocytes % Manual 4 3 - 15 % 2011 5:58 AM T [facility] Eosinophils % Manual 39(H) 0 - 10 % 11/13/2011 5:58 AM T [facility] Atypical Lymphocyte % Manual 6 % 11/13/2011 5:58 AM T [facility] Cells Counted 100 # cells 11/13/2011 5:58 AM T [facility] Platelet Estimation Adequate platelets 11/13/2011 5:58 AM T [facility] WBC Morph Normal 11/13/2011 5:58 AM T [facility] Anisocytosis Slight 11/13/2011 5:58 AM [facility] Poikilocytosis Slight 11/13/2011 5:58 AM T [facility] Blood specimen (specimen) BLOOD SPECIMEN / Unknown 11/13/2011 4:49 AM CDT 11/13/2011 4:52 AM CDT Ezekiel Doshi MD LAB - HEMATOLOGY ORDERABLES [facility] [address] [place] [address] * XR ABD OBSTR SERIES (11/12/2011 5:13 [...] PM CDT) Source 11/14/2011 4:00 PM CDT [facility] Comment Ref Lab 2 4:00 PM CDT [facility] Comment 11/14/2011 4:00 PM CDT [facility] O+P Direct Wet Mount 11/14/2011 4:00 PM CDT [facility] O+P Concentrate Wet Mount 11/14/2011 4:00 PM CDT [facility] O+P Concentrate Formalin NO ova and parasites seen. 11/14/2011 4:00 PM CDT [facility] Trichrome Stain NO ova and parasites seen. 11/14/2011 4:00 PM CDT [facility] O+P Notification 11/14/19 12 4:00 PM CDT [facility] Additional Comment 11/14/2011 4:00 PM CDT [facility] Comment ONLY 1 O+P EXAM PER 24 HOURS - MAXIMUM OF 3 O+P EXAMS PER PATIENT WILL BE EVALUATED. 11/14/2011 4:00 PM CDT [facility] Stool specimen (specimen) STOOL SPECIMEN / Unknown 11/10/2011 10:03 PM CDT 11/10/2011 10:21 PM CDT Stuart Miller MD LAB - MICROBIOLOGY ORDERABLES [facility] [address] [place] [address], [facility] * (ABNORMAL) DIFFERENTIAL MANUAL (11/09/2011 7:02 PM CDT) WBC Auto 16.1 X(10)9/L 11/09/2011 8:08 PM CDT [facility] Neutrophil % Manual 43 24 - 66 % 11/09/2011 8:08 PM T [facility] Lymphocytes % Manual 17(L) 22 - 61 % 11/09/2011 8:08 PM T [facility] Monocytes % Manual 5 3 - 15 % 11/09/2011 8:08 PM T [facility] Eosinophils % Manual 33(H) 0 - 10 % 11/09/2011 8:08 PM T [facility] Band % Manual 2 % 11/09/2011 8:08 PM T [facility] Cells Counted 100 # cells 11/09/2011 8:08 PM T [facility] Platelet Estimation Adequate platelets 11/09/2011 8:08 PM T [facility] WBC Morph Normal 11/09/2011 8:08 PM T [facility] Poikilocytosis Occasional 11/09/2011 8:08 PM T [facility] Blood specimen (specimen) BLOOD SPECIMEN / Unknown 11/09/2011 7:02 PM CDT 11/09/2011 7:29 PM CDT Mignon Champagne MD LAB - HEMATOLOGY ORD ERABLES [facility] [address] [place] [address] * (ABNORMAL) CBC W AUTO DIFFERENTIAL (11/09/2011 7:02 PM CDT) WBC 16.1(H) 4.5 - 14.5 x10^9/L 11/09/2011 7:44 PM CDT [facility] RBC 5.01 4.00 - 5.20 x10^12/L 11/09/2011 7:44 PM CDT [facility] Hemoglobin 15.2 11.5 - 15.5 g/dL 11/09/2011 7:44 PM CDT [facility] Hematocrit 42.1 35.0 - 45.0 % 11/09/2011 7:44 PM T [facility] MCV 84.0 77.0 - 95.0 fl 11/09/2011 7:44 PM CDT [facility] MCH 30.3 25.0 - 33.0 pg 11/09/2011 7:44 PM CDT [facility] MCHC 36.1 31.0 - 37.0 gm/dL 11/09/2011 7:44 PM T [facility] RDW-CV 13.0 11.5 - 14.0 % 11/09/2011 7:44 PM T [facility] MPV 10.9(H) 6.0 - 9.5 fl 11/09/2011 7:44 PM CDT [facility] Hematology Reflex Status Manual Diff to follow 11/09/2011 7:44 PM T [facility] Platelet Count 265 100 - 400 x10^9/L 11/09/2011 7:44 PM T [facility] Blood specimen (specimen) BLOOD SPECIMEN / Unknown 11/09/2011 7:02 PM CDT 11/09/2011 7:29 PM CDT Mignon Champagne MD LAB - HEMATOLOGY ORD ERABLES [facility] [address] [place] [address] * (ABNORMAL) COMPREHENSIVE METABOLIC PANEL (11/09/2011 7:01 PM CDT) Glucose 137(H) 70 - 105 mg/dL 11/09/2011 7:42 PM CDT [facility] Sodium 141 136 - 145 mmol/L 11/09/2011 7:42 PM [facility] Potassium 4.2 3.5 - 5.1 mmol/L 11/09/2011 7:42 PM [facility] Chloride 107 98 - 107 mmol/L 11/09/2011 7:42 PM [facility] CO2 16(L) 20 - 28 mmol/L 11/09/2011 7:42 PM [facility] Calcium 8.96 8.92 - 10.32 mg/dL 11/09/2011 7:42 PM [facility] Anion Gap 18 5 - 20 mmol/L 11/09/2011 7:42 PM [facility] BUN 8.7 6.1 - 21.0 mg/dL 11/09/2011 7:42 PM [facility] Creatinine 0.50(L) 0.62 - 1.00 mg/dL 11/09/2011 7:42 PM [facility] eGFR by MDRD ml/min/1. 73m2 11/09/2011 7:42 PM [facility] Comment:eGFR calculations ar e not performed for children under 18 years old. eGFR by MDRD ml/min/1. 73m2 11/09/2011 7:42 PM [facility] Comment:eGFR calculations ar e not performed for children under 18 years old. Alkaline Phosphatase 165 100 - 390 U/L 11/09/2011 7:42 PM [facility] ALT 31 6 - 46 U/L 11/09/2011 7:42 PM [facility] AST 38(H) 3 - 35 U/L 11/09/2011 7:42 PM [facility] Protein Total 5.5(L) 6.4 - 8.5 gm/dL 11/09/2011 7:42 PM [facility] Albumin 3.3 3.3 - 5.0 gm/dL 11/09/2011 7:42 PM [facility] Bilirubin Total 0.2(L) 0.3 - 1.2 mg/dL 11/09/2011 7:42 PM [facility] Blood specimen (specimen) BLOOD SPECIMEN / Unknown 11/09/2011 7:01 PM T 11/09/2011 7:26 PM CDT Mignon Champagne MD LAB - CHEMISTRY [place] Organization Address City/State/ZIP Co de Phone Number [facility] [address] [place] [address] documented in this encounter Visit Diagnoses Diagnosis Diarrhea Abdominal pain, diarrhea, emesis; Presumed EE Abdominal pain, unspecified site Eosinophilia Flushing Eosinophilic esophagitis ADHD (attention deficit hyperactivity disorder) Attention deficit disorder with hyperactivity ADHD (attention deficit hyperactivity disorder) Attention deficit disorder with hyperactivity Diarrhea documented in this encounter Administered Medications Inactive Administered Medications - up to 3 most recent administrations Medication Order MAR Action Action Date Dose Rate Site lidocaine buffered 1 % injection Infiltration, ONCE, 1 dose, On Sat11/16/11 at 1330 $ Given 11/16/2011 3:07 PM CDT 3 mL Right Dorsogluteal documented in this encounter Active and Recently Administered Medications Times are shown in CDT. Scheduled Medication Order 11/20/2011 11/21/2011 11/22/2011 amphetamine-dextroamph etamine (ADDERALL) tablet 5 mg (CANCELED) 5 mg, Oral, EVERY 24 HOURS, First dose on Sat11/10/11 at 1530, Until Discontinued 1530 (Not Administered - Provider: Faith Mejía RN - Reason: Refused-Parent/Guardi an) 1626 ($ Given - Provider: Lea Narvaez, MARGARET) esomeprazole (NexIUM) injection 10 mg (CANCELED) 10 mg (0.269 mg/kg), Intravenous, 2 TIMES DAILY, First dose on 11/19/11 at 0930, Until Discontinued, Administer over 5 minutes. RX diluted in NS. 0800 ($ Given - Provider: Faith Mejía RN)1958 ($ Given - Provider: Jose Alberto Little, MARGARET) 09 ($ Given - Provider: Lea Narvaez, MARGARET)2022 ($ Given - Provider: Karissa Mackay RN) [...] ($ Given - Provider: Faith Mejía RN) 0905 ($ Given - Provider: Lea Narvaez RN) 0830 (Not Administered - Provider: Sonam Jones, MARGARET - Reason: Medication not available)0941 ($ Given - Provider: Sonam Jones RN) predniSONE (DELTASONE) tablet 20 mg 20 mg (0.538 mg/kg), Oral, 2 TIMES DAILY, First dose on Tu11/20/11 at 1300, Until Discontinued 1651 ($ Given - Provider: Faith Mejía RN) 0730 (Not Administered - Provider: Lea Narvaez RN - Reason: Documented on duplicate row)0904 ($ Given - Provider: Lea Narvaez, MARGARET)2022 ($ Given - Provider: Karissa Mackay RN) 0834 ($ Given - Provider: Sonam Jones, MARGARET) PRN Medication Order 11/20/2011 11/21/2011 11/22/2011 0.9% NaCl injection 2-10 mL (CANCELED) 2-10 mL (0.0538-0.2688 mL/kg), Intracatheter, PRN, Other, PIV flush, Starting on Sat11/18/11 at 0824, Until Antoinette 11/22/11 at 1409, PIV flush Use positive pressure technique for last 0.5 ml. 2 ml for saline lock flush. 10 ml for syringe flush. 1958 ($ Given - Provider: Jose Alberto Little, MARGARET)2328 ($ Given - Provider: Jose Alberto Little RN) 162 ($ Given - Provider: Lea Narvaez RN) prochlorperazine (COMPAZINE) tablet 2.5 mg (CANCELED) 2.5 mg (0.0672 mg/kg), Oral, EVERY 8 HOURS PRN, Nausea/Vomiting, nausea, Starting on 11/18/11 at 2014, Until Antoinette 11/22/11 at 1409 0800 ($ Given - Provider: Faith Mejía, MARGARET)1651 ($ Given - Provider: Faith Mejía RN) documented in this encounter Care Teams Earth Science Professor Relationship Specialty Start Date End Date Lanny Hewitt MD PCP - General Pediatrics 11/09/11 12/30/13 documented as of this encounter
--- OUTSIDE RECORDS SUMMARY | 2024-03-21 22:06 | XMS_ITS | Encounter Summary ---
Author Organization [facility] Address [address] [place] [address] Phone Care Team Providers Care Account General Manager Name Role Phone Yvette Nash MD Primary Care Provider [phone] Ricky Zepeda DPVernon Unavailable Unavailable Lindy Frausto APRN, [employer] Unavailable Jeni Lopes MD Unavailable [phone] Reason for Referral * Radiology Services (Routine) - Closed Specialty Diagnoses / Procedures Referred By Contac t Referred To Contact Radiology Diagnoses Nausea Procedures NM HEPATOBILIARY WITH PHARM Jeni Lopes MD [address] [place] [address] Phone: tel: fax: Referral ID Status Reason Start Date Expiration Date Visits Re quested Visits Authorized [id number] Closed 12/13/2022 1 1 Reason for Visit * Reason Comments Follow-up Encounter Details Date Type Department Care Team (Latest Contact Info) Description 12/13/2022 9:00 AM CDT Office Visit [facility] - Gastroenterology [facility] [address] [place] [id number] Jeni Lopes MD [address] [place] [address] Eosinophilic esophagitis (Primary Dx); Intermittent diarrhea; Nausea Discharge Disposition: Discharged to home or Selfcare Social History Tobacco Use Types Packs/Day Years Used Date Smoking Tobacco: Never Smokeless Tobacco: Never Tobacco Cessation:Counseling Given: Not Answered Alcohol Use Standard Drinks/Week Comments Never 0 (1 standard drink = 0.6 oz pur e alcohol) AUDIT-C Answer Date Recorded Frequency of Alcohol Consumption Never 03/03/2019 Average Number of Drinks Not on file 019 Frequency of Binge Drinking Not on file 02/09 PHQ-2 Answer Date Recorded Total Score - Questions 1-9 0 04/0 03/2021 Education Answer Date Recorded What is the highest level of school you have completed or the highest degree you have received? Associate degree: academic program 08/15/2022 Sexually Active Control Partners Comments Yes Female Sex and Gender Information Value Date Recorded Sex Assigned at Not on file Legal Sex Male 12:25 AM CDT Gender Identity Not on file Sexual Orientation Not on file COVID-19 Exposure Response Date Recorded In the last 10 days, have yo u been in contact with someone who was confirmed or suspected to have Coronavirus/COVID-19? No / Unsure 12/13/2022 8:47 AM CDT documented as of this encounter Last Filed Vital Signs Vital Sign Reading Time Taken Comments Blood Pressure 130/88 12/13/2022 9:11 AM CDT Pulse 77 12/13/2022 9:11 AM CDT Temperature 37 ??C (98.6 ??F) 12/13/2022 9:1 1 AM CDT Respiratory Rate 14 12/13/2022 9:11 AM CDT Oxygen Saturation 97% 12/13/2022 9:1 1 AM CDT Inhaled Oxygen Concentration - - Weight 102.2 kg (225 lb 4.8 oz) 12/13/2022 9:11 AM CDT BMI incorrect due to technical error Height 172.7 cm (5' 8 ) 12/13/2022 9:11 AM CDT BMI incorrect due to technical error Body Mass Index 34.26 12/13/2022 9:11 AM CDT documented in this encounter Progress Notes * Jeni Lopes MD - 12/13/2022 9:00 AM CDT SAPG GASTRO [facility] - GASTROENTEROLOGY - [place] [address] [facility] [address] Dept: [phone] Dept Loc: [phone] Loc Patient: Lavelle Michael : 2000 Sex: male Medical Decision Making: Assessment & Plan Diagnoses and all orders for this visit: Eosinophilic esophagitis Intermittent diarrhea Nausea - NM HEPATOBILIARY WITH PHARM; Future Patient's recent EGD supported the diagnosis of eosinophilic esophagitis. We will have him continuepantoprazole and Flovent. Since his symptoms are not very severe for dysphagia, we will not start him on Dupixent at this time but would consider it later as needed. Avoidance of certain foods including dairy so a reducing wheat were all discussed with him in detail. He has intermittent diarrhea also. His previous colonoscopy did not show any significant findings. He does not need a repeat colonoscopy for that. His polyp was only a small rectal hyperplastic polyp. I have advised him to start Metamucil 1 scoop every morning. Since he continues to have nausea, the etiology of which is not clear, and I do not believe it is secondary to his eosinophilic esophagitis and I doubt that he has eosinophilic enteritis either. His biopsies were negative in the duodenal as well. I will only order a HIDA scan since his ultrasound of the abdomen was normal. LFTs have also essentially been unremarkable. Return in about 6 months (around 06/14/2023). Subjective Subjective: HPI: Lavelle Michael is a 22 y.o. male presents for Follow-up Patient presents for follow-up today. For details see previous office visit by a nurse practitioner. He apparently has been diagnosed with eosinophilic esophagitis. He does have intermittent other symptoms also which are not very clear but include nausea and occasional vomiting. He also complains of intermittent diarrhea. He did have an EGD and a colonoscopy in the past. This was done for evaluation of diarrhea supposed. Only a small hyperplastic polyp was noted in there but I did not see any other reports aborting any other diagnosis. Was told that he may have allergies in other part of the intestine also. But during recent EGD, duodenal biopsies did not show any evidence of such. He is gained some weight. No significant dysphagia though since he is on Flovent and Protonix. Occasional nausea and occasional vomiting but otherwise unremarkable. He did have an ultrasound few months ago which was unremarkable. LFTs have also essentially been normal except for minimal increase ofAST. Past Medical History: Past Medical History Positives Diagnosis Date ??? Eosinophilic gastroenteritis Past Surgical History: Past Surgical History: Procedure Laterality Date ??? TESTICLE SURGERY N/A as child ??? UPPER GASTROINTESTINAL ENDOSCOPY ??? UPPER GASTROINTESTINAL ENDOSCOPY N/A 10/09/2022 Procedure: EGD - LINEAR FURROWS IN ESOPHAGUS, DUODENAL BULB SUPERFICIAL ULCERS (BIOPSY FORCEPS), SECOND PORTION DUODENAL BIOPSIES (BIOPSY FORCEPS), ANTRAL BIOPSY (BIOPSY FORCEPS), DISTAL ESOPHAGUS BIOPSY (BIOPSY FORCEPS); Surgeon: Jeni Lopes MD; Location: [facility]; Service: Gastroenterology Medications: Current Outpatient Medications: ??? amitriptyline (ELAVIL) 10 MG Tablet ??? CREATINE PO ??? dicyclomine (BENTYL) 10 MG Capsule ??? fluticasone (FLOVENT HFA) 220 MCG/ACT Aerosol ??? MAGNESIUM PO ??? ondansetron (ZOFRAN) 4 MG Tablet ??? pantoprazole (PROTONIX) 40 MG Tablet Delayed Response Allergies: Allergies Allergen Reactions ??? Medical Adhesive Remover Rash (reported on 05/05/2012) Clear tape caused irritation; please use cloth tape. Rest of the history reviewed from the chart and as noted previously. Review of systems was negative, except as documented in HPI. Objective Objective: BP 130/88 Pulse 77 Temp 98.6 ??F (37 ??C) Resp 14 Ht 5' 8 (1.727 m) Wt 225 lb 4.8 oz (102.2 kg) SpO2 97% BMI 34.26 kg/m?? BP 130/88 Pulse 77 Temp 98.6 ??F (37 ??C) Resp 14 Ht 5' 8 (1.727 m) Wt 225 lb 4.8 oz (102.2 kg) SpO2 97% BMI 34.26 kg/m?? General appearance: alert, no distress, cooperative, appears stated age Lungs: clear to auscultation bilaterally Heart: regular rate and rhythm, S1, S2 normal, no murmur, click, rub or gallop Abdomen: soft, non-tender. Bowel sounds normal. No masses, no organomegaly Labs: Lab Results Component Value Date WBC 11.10 06/28/2022 HEMOGLOBIN 16.6 (H) 06/28/2022 HEMATOCRIT 47.4 06/28/2022 PLATELETCNT 296 06/28/2022 MCV 87.8 06/28/2022 No results found for: INR Lab Results Component Value Date SODIUM 141 06/28/2022 POTASSIUM 4.0 06/28/2022 CHLORIDE 102 06/28/2022 CO2VEN 27 06/28/2022 ANIONGAP 16.0 06/28/2022 GLUCOSE 95 06/28/2022 BUN 13 06/28/2022 CREATININE 1.02 06/28/2022 BCRATIO8 13 06/28/2022 TOTALPROTEIN 7.5 06/28/2022 ALBUMIN 4.5 06/28/2022 CALCIUM 9.7 06/28/2022 TBIL 0.5 06/28/2022 SGOTAST 23 06/28/2022 SGPTALT 42 (H) 06/28/2022 ALKALINEPHO 82 06/28/2022 GFRNA >60 06/28/2022 GFRA >60 06/28/2022 No results found. Review of diagnostic tests: Endoscopy and biopsies, imaging and labs Jeni Lopes MD documented in this encounter Plan of Treatment Not on file documented as of this encounter Results * NM HEPATOBILIARY WITH PHARM (01/01/2023 11:58 AM CDT) Anatomical Region Laterality Modality Abdomen N/A Nuclear Medicine 01/01/2023 12:5 0 PM CDT Impressions 01/01/2023 12:52 PM CDT IMPRESSION: 1. ?? No evidence of cystic duct obstruction. 2. ?? Equivocal gallbladder ejection fraction of 35%, raises the possibility of biliary dyskinesia or chronic cholecystitis. ?? Narrative 01/01/2023 12:52 PM CDT EXAM DESCRIPTION: ?? NM HEPATOBILIARY WITH PHARM REASON FOR STUDY: Nausea and vomiting for several years. RADIOPHARMACEUTICAL: 23 ??mCi Tc-99m mebrofenin via a ??left antecubital ??IV site and 8 oz Ensure Plus or equivalent p.o. COMPARISON: Right upper quadrant ultrasound 08/18/2022. TECHNIQUE: Following the intravenous administration of the radiopharmaceutical, sequential abdominal images were obtained. ??A region of interest was drawn around the gallbladder with an ejection fraction calculated. FINDINGS: There is prompt, homogenous tracer localization throughout the liver. There is normal visualization of the intrahepatic ducts, common bile duct, and gallbladder. ??There is normal biliary to bowel transit. Following the oral administration of Ensure Plus, the gallbladder ejection fraction was calculated. ??There is some initial emptying of radiotracer from the gallbladder but with subsequent refilling. ??As calculated using a standard technique from the maximum to the minimum amount, the gallbladder ejection fraction is ??35 % (normal: greater than 40%, equivocal: 30-40%, and abnormal: less than 30%). THIS IS AN ELECTRONICALLY VERIFIED FINAL REPORT 01/01/2023 12:50 PM - Electronically signed by ??Ramon Doran M.D. CH: D: ??01/01/2023 12:50 PM T: ??01/01/2023 12:50 PM Report ID: [id number] Reading Location: ??[id number] Procedure Note Ramon Doran Jr., MD - 01/01/2023 EXAM DESCRIPTION: NM HEPATOBILIARY WITH PHARM REASON FOR STUDY: Nausea and vomiting for several years. RADIOPHARMACEUTICAL: 23 mCi Tc-99m mebrofenin via a left antecubital IV site and 8 oz Ensure Plus or equivalent p.o. COMPARISON: Right upper quadrant ultrasound 08/18/2022. TECHNIQUE: Following the intravenous administration of the radiopharmaceutical, sequential abdominal images were obtained. A region of interest was drawn around the gallbladder with an ejection fraction calculated. FINDINGS: There is prompt, homogenous tracer localization throughout the liver. There is normal visualization of the intrahepatic ducts, common bile duct, and gallbladder. There is normal biliary to bowel transit. Following the oral administration of Ensure Plus, the gallbladder ejection fraction was calculated. There is some initial emptying of radiotracer from the gallbladder but with subsequent refilling. As calculated using a standard technique from the maximum to the minimum amount, the gallbladder ejection fraction is 35 % (normal: greater than 40%, equivocal: 30-40%, and abnormal: less than 30%). THIS IS AN ELECTRONICALLY VERIFIED FINAL REPORT 01/01/2023 12:50 PM - Electronically signed by Ramon Doran M.D. CH: ALFONSO Report ID: [id number] Reading Location: [place] [address] IMPRESSION: 1. No evidence of cystic duct obstruction. 2. Equivocal gallbladder ejection fraction of 35%, raises the possibility of biliary dyskinesia or chronic cholecystitis. Jeni Lopes MD IMG NM ORDERABLES Final Result documented in this encounter Visit Diagnoses Diagnosis Eosinophilic esophagitis- Primary Intermittent diarrhea Nausea Nausea alone Nausea Nausea alone documented in this encounter Additional Health Concerns Assessment Noted Time PHQ-9 Depression Total Score: 0 04/07/19 21 3:00 PM SENIOR LABEL SPECIALIST documented as of this encounter Care Teams Account General Manager Relationship Specialty Start Date End Date Yvette Nash MD [address] [place] [address] PCP - General Family Medicine 08/28/21 08/26/23 Ricky Zepeda DPM Podiatry 08/30/21 Lindy Frausto APRN, [employer] [address] [place] [address] Nurse Practitioner Advanced Practice Nurse 07/31/22 Jeni Lopes MD [address] [place] [address] Consulting Physician Gastroenterology 12/13/22 documented as of this encounter
--- OUTSIDE RECORDS SUMMARY | 2024-03-21 22:06 | XMS_ITS | Encounter Summary ---
Author Organization [facility] Address [address] [place] [address] Phone Care Team Providers Care Drying Oven Attendant Name Role Phone Yvette Nash MD Primary Care Provider [phone] Ricky Zepeda DPM Unavailable Unavailable Lindy Frausto APRN, FEEDER OPERATOR AUTOMATIC Unavailable Jeni Lopes MD Unavailable [phone] Reason for Visit * Reason Comments Cough X3 weeks Sinus Problem Encounter Details Date Type Department Care Team (Late st Contact Info) Description 05/13/2023 2:45 PM GANG SAW OPERATOR [facility] [address] [place] [address] Damaris Nicolas, PAC [address] [place] [address] Sinusitis, unspecified chronicity, unspecified location (Primary Dx) Discharge Disposition: Discharged to home or Selfcare Social History Tobacco Use Types Packs/Day Years Used Date Smoking Tobacco: Never Smokeless Tobacco: Never Alcohol Use Standard Drinks/Week Comments Never 0 (1 standard drink = 0.6 oz pur e alcohol) AUDIT-C Answer Date Recorded Frequency of Alcohol Consumption Never 03/03/2019 Average Number of Drinks Not on file 019 Frequency of Binge Drinking Not on file 02/09 PHQ-2 Answer Date Recorded Total Score - Questions 1-9 0 03/0 06/2023 Education Answer Date Recorded What is the [...] Sign Reading Time Taken Comments Blood Pressure 128/80 05/13/2023 2:24 PM GANG SAW OPERATOR Pulse 89 05/13/2023 2:24 PM GANG SAW OPERATOR Temperature 36.8 ??C (98.2 ??F) 05/13/2023 2:24 PM CS T Respiratory Rate - - Oxygen Saturation 97% 05/13/2023 2:24 PM GANG SAW OPERATOR Inhaled Oxygen Concentration - - Weight 103.9 kg (229 lb) 05/13/2023 2:24 PM GANG SAW OPERATOR Height 172.7 cm (5' 8 ) 05/13/2023 2:24 PM GANG SAW OPERATOR Body Mass Index 34.82 05/13/2023 2:24 PM GANG SAW OPERATOR documented in this encounter Functional Status * Question Answer Date of Assessment Author Little interest or pleasure in doing things Not at all 05/13/2023 2:44 PM GANG SAW OPERATOR Theresa Sanabria CMA Feeling down, depressed, or hopeless Not at all 05/13/2023 2:44 PM GANG SAW OPERATOR Theresa Sanabria C MA * Over the past 2 weeks, how often have you been bothered by any of the following problems? Question Answer Date of Assessment Author Patient Health Questionnaire -2 Score 0 05/13/2023 2:44 PM GANG SAW OPERATOR Theresa Sanabria C MA documented as of this encounter Progress Notes * Theresa Sanabria CMA - 05/13/2023 2:45 PM CST Lavelle Michael, 22 y.o., male is here for Cough Medication Refills: Patient reports/denies need for medication refills. Orders Pended: no Requested Prescriptions No prescriptions requested or ordered in this encounter Home Medications Medication Sig Start Date End Date Taking? Authorizing Provider amitriptyline (ELAVIL) 10 MG Tablet TAKE 1 TABLET BY MOUTH EVERY NIGHT 10/04/22 Yes Yvette Nash MD CREATINE PO Take by mouth as needed. Yes ProviderSparkle MD dicyclomine (BENTYL) 10 MG Capsule Take 1 Capsule by mouth 2 times daily as needed for Other. 07/31/22 Yes Lindy Frausto APRN, CNP fluticasone (FLOVENT HFA) 220 MCG/ACT Aerosol Take 2 puffs by mouth daily 01/02/23 Yes Jeni Lopes MD MAGNESIUM PO Take by mouth as needed. Yes ProviderSparkle MD ondansetron (ZOFRAN) 4 MG Tablet Take 1 Tablet by mouth every 8 hours as needed for Nausea - 1st line. 08/02/22 Yes Lindy Frausto APRN, CNP pantoprazole (PROTONIX) 40 MG Tablet Delayed Response Take 1 Tablet by mouth 2 times daily. 08/15/22 Yes Damaris Nicolas PAC There are no discontinued medications. I have reviewed the home medication list with the patient and have reconciled discrepancies. The list is accurate to the best of my knowledge. Smoking Status: Social History Tobacco Use Smoking status: Never Smokeless tobacco: Never Vaping Use Vaping Use: Never used Substance Use Topics Alcohol use: Never Drug use: Never Smoking Cessation Counseling Given: no Health Care Maintenance: Health Maintenance Due Topic Date Due Hepatitis C Virus (HCV) Screening Never done Meningococcal B Immunization (1 of 2 - Patient Seeks Protection) Never done Human Papillomavirus (HPV) Immunization (2 - Male 3-dose series) 11/04/2015 Influenza Immunization (1) 11/09/2022 SARS-COV-2 Immunization (3 - 2022- season) 2022 Orders Pended: no The following BPA's have been addressed with the patient today: Depression, Nutrition, and functional, learning PHQ-2 Little interest or pleasure in doing things: Not at all Feeling down, depressed, or hopeless: Not at all Initial Score - If the score is 2 or higher, please proceed with the additional evaluation.: 0 PHQ-9 3. Trouble falling asleep or staying asleep or sleeping too much?: 0 - Not at all 4. Feeling tired or having little energy?: 0 - Not at all 5. Poor appetite or overeating?: 0 - Not at all 6. Feeling bad about yourself or that you are a failure or have let yourself or your family down?: 0 - Not at all 7. Trouble concentrating on things, such as reading the newspaper or watching television?: 0 - Not at all 8. Moving or speaking so slowly that other people could have noticed. Or the opposite - being so fidgety or restless that you have been moving around a lot more than usual?: 0 - Not at all 9. Thoughts that you would be better off or of hurting yourself in some way?: 0 - Not at all 10. If you checked off any problems, how difficult have these problems made it for you to do your work, take care of things at home or get along with other people?: Not difficult at all Total Score - Questions 1-9: 0 SAW OPERATOR * Damaris Nicolas PAC - 05/13/2023 2:45 PM CST Subjective: Subjective Cough for last 3 weeks Cough productive yellow No ear pain or sore throat Review of Systems Constitutional: Negative for chills and fever. HENT: Positive for congestion. Respiratory: Positive for cough. Negative for shortness of breath. Cardiovascular: Negative for chest pain. Neurological: Positive for headaches. Objective: Objective Physical Exam Vitals reviewed. Constitutional: Appearance: Normal appearance. He is not ill-appearing. HENT: Head: Normocephalic and atraumatic. Right Ear: Tympanic membrane normal. Left Ear: Tympanic membrane normal. Nose: Congestion present. Mouth/Throat: Mouth: Mucous membranes are moist. Pharynx: Posterior oropharyngeal erythema present. Eyes: General: Right eye: No discharge. Left eye: No discharge. Extraocular Movements: Extraocular movements intact. Cardiovascular: Rate and Rhythm: Normal rate and regular rhythm. Heart sounds: No murmur heard. Pulmonary: Effort: Pulmonary effort is normal. No respiratory distress. Breath sounds: Normal breath sounds. No wheezing. Neurological: Mental Status: He is alert. Psychiatric: Mood and Affect: Mood normal. Assessment and Plan Assessment & Plan See Diagnoses, Orders, Follow-up, and Instructions .Diagnoses and all orders for this visit: Sinusitis, unspecified chronicity, unspecified location Other orders - Benzonatate 200 MG Capsule; Take 1 Capsule by mouth 3 times daily as needed for Cough. - amoxicillin-clavulanate (AUGMENTIN) 875-125 MG Tablet; Take 1 Tablet by mouth 2 times daily for 7days. Indications: Infection of Ears, Nose or Throat - albuterol 108 (90 Base) MCG/ACT Aerosol Solution; 2 puffs inhaled every 4-6 hours as needed cough, wheezing or shortness of breath Patient will be treated for sinusitis. Start Augmentin as directed. Discussed use of medication possible side effects. Discussed home care. Notify of no improvements or worsening symptoms. SAW OPERATOR documented in this encounter Plan of Treatment Not on file documented as of this encounter Visit Diagnoses Diagnosis Sinusitis, unspecified chronicity, unspecified location- Primary documented in this encounter Additional Health Concerns Assessment Noted Time PHQ-9 Depression Total Score: 0 05/13/19 24 2:44 PM GANG SAW OPERATOR documented as of this encounter Care Teams Drying Oven Attendant Relationship Specialty Start Date End Date Yvette Nash MD [address] [place] [address] PCP - General Family Medicine 08/28/21 08/26/23 Ricky Zepeda DPM Podiatry 08/30/21 Lindy Frausto APRN, FEEDER OPERATOR AUTOMATIC [address] [place] [address] Nurse Practitioner Advanced Practice Nurse 07/31/22 Jeni Lopes MD [address] [place] [address] Consulting Physician Gastroenterology 12/13/22 documented as of this encounter
--- OUTSIDE RECORDS SUMMARY | 2024-03-21 22:06 | XMS_ITS | Encounter Summary ---
Author Organization [facility] Address [address] [place] [address] Phone Care Team Providers Care Waiter/Waitress Club Name Role Phone Yvette Nash MD Primary Care Provider [phone] Ricky Zepeda DPM Unavailable Unavailable Lindy Frausto APRN, SPIRAL RUNNER Unavailable Encounter Details Date Type Department Care Team (Late st Contact Info) Description 10/08/2022 Telephone [facility] - Gastroenterology - [facility] [address] [place] [address] Lindy Frausto APRN, SPIRAL RUNNER [address] [place] [address] Social History Tobacco Use Types Packs/Day Years [...] Recorded Total Score - Questions 1-9 0 03/2021 Education Answer Date Recorded What is [...] encounter Miscellaneous Notes * Telephone Encounter - Franck Flores CMA - 10/08/2022 10:47 AM CDT Trying to do a prior authorization through CoverMyMeds for the Flovent HFA 220 MCG Oral INH 120INH. Called patient and LMOM for him to call office, tried to put this prior authorization request through, but it comes back patient is not found on the [employer] insurance. Need to verify what insurance patient has as primary. Is it [employer] or is it [place] insurance. documented in this encounter Plan of Treatment Not on file documented as of this encounter Visit Diagnoses Not on filedocumented in this encounter Additional Health Concerns Assessment Noted Time PHQ-9 Depression Total Score: 0 04/07/19 21 3:00 PM DRYING OVEN TENDER documented as of this encounter Care Teams Waiter/Waitress Club Relationship Specialty Start Date End Date Yvette Nash MD [address] [place] [address] PCP - General Family Medicine 08/28/21 08/26/23 Ricky Zepeda DPM Podiatry 08/30/21 Lindy Frausto APRN, SPIRAL RUNNER [address] [place] [address] Nurse Practitioner Advanced Practice Nurse 07/31/22 documented as of this encounter
--- OUTSIDE RECORDS SUMMARY | 2024-03-21 22:06 | XMS_ITS | Clinical Summary ---
Author Organization [facility] Address [address] [place] [address] Phone Care Team Providers Care Functional Tester Name Role Phone Ricky Zepeda DPM Unavailable Unavailable Lindy Frausto APRN, TRUST CLERK Unavailable Jeni Lopes MD Unavailable [phone] Allergies Active Allergy Reactions Criticality Noted Date Comments Medical Adhesive Remover Rash Low 06/09/2021 (reported on 05/05/2012) Clear tape caused irritation; please use cloth tape. Medications dicyclomine (BENTYL) 10 MG CapsuleIndicatio ns:Left upper quadrant abdominal pain Take 1 Capsule by mouth 2 times daily as needed for Other. 60 Capsule 3 07/31/2022 Active ondansetron (ZOFRAN) 4 MG Tablet Take 1 Tablet by mouth every 8 hours as needed for Nausea - 1st line. 15 Tablet 2 08/02/2022 Active pantoprazole (PROTONIX) 40 MG Tablet Delayed ResponseIndicati ons:Eosinophilic esophagitis Take 1 Tablet by mouth 2 times daily. 180 Tablet 08/15/2022 Active MAGNESIUM PO Take by mouth as needed. Active CREATINE PO Take by mouth as needed. Active fluticasone (FLOVENT HFA) 220 MCG/ACT AerosolIndicatio ns:Eosinophilic esophagitis Take 2 puffs by mouth daily 12 g 3 01/02/2023 Active Benzonatate 200 MG Capsule Take 1 Capsule by mouth 3 times daily as needed for Cough. 30 Capsule 05/13/2023 Active amitriptyline (ELAVIL) 10 MG Tablet Take 1 Tablet by mouth nightly. 90 Tablet 1 11/18/2023 Active Active Problems Problem Noted Date Diagnosed Date High triglycerides 08/15/2022 Immunizations Immunization Administration Dates Next Due Covid-19, Mrna, Lnp-s, Pf, 3 0 Mcg/0.3 Ml Dose ([facility]) 02/09/2021 DTAP VACCINE 10/23/2004, 2,07/31/2000,10/23 HEP B/HIB Combined Vaccine 07/31/2000,1999 Hepatitis A Vaccine, Pediatric/adolescent, 2 Dose Schedule 11/12/2012 Hepatitis A, Pediatric, Unsp ecified Formulation 10/31/2010 Hepatitis B Vaccine, Pediatric/adolescent 1999 Human Papillomavirus (HPV) 9 -valent Vaccine 10/07/2015 Inactivated Polio Vaccine 10/23/2004,,07/31/2000,10/23 Influenza Vaccine Quadrivalent Nasal 12/29/2013 Influenza Vaccine, Quadrivalent, PF 02/09/2021 MMR Vaccine 10/23/2004,07/31/2000 Meningococcal MCV4O 11/12/2012,10/31/2010 Meningococcal Vaccine 03/17/2021 Pneumococcal Vaccine Peds - 7 Valent 07/25/2001, 07/31/2000 TDAP Vaccine 06/25/2022,02/27/2021,10/31/2010 Varicella Vaccine Live 10/31/2010,07/31/2000 Family History Medical History Relation Name Comments No Known Problems Brother No Known Problems Father No Known Problems Mother Diabetes Paternal Grandfather Relation Name Status Comments Brother Father Mother Paternal Grandfather Social History Tobacco Use Types Packs/Day Years [...] Comments Blood Pressure 128/80 05/13/2023 2:24 PM MASTER PLANNER Pulse 89 05/13/2023 2:24 PM MASTER PLANNER Temperature 36.8 ??C (98.2 ??F) 05/13/2023 2:24 PM CS T Respiratory Rate 14 12/13/2022 9:11 AM CDT Oxygen Saturation 97% 05/13/2023 2:24 PM MASTER PLANNER Inhaled Oxygen Concentration - - Weight 103.9 kg (229 lb) 05/13/2023 2:24 PM MASTER PLANNER Height 172.7 cm (5' 8 ) 05/13/2023 2:24 PM MASTER PLANNER Body Mass Index 34.82 05/13/2023 2:24 PM MASTER PLANNER Plan of Treatment Health Maintenance Due Date Last Done Comments Hepatitis C Virus (HCV) Screening 1999 Human Papillomavirus (HPV) Immunization (2 - Male 3-dose series) 11/04/2015 10/07/2015 Influenza Immunization (#1) 2023 02/09/2021, 1 SARS-COV-2 Immunization (3 - season) 2023 02/09/2021, 05/17/2020 DTaP/Tdap/Td Immunization (8 - Td or Tdap) 06/25/2032 06/25/2022, 02/27/2021, 10/31/2010, Additional history exists Respiratory Syncytial Virus (RSV) Immunization (Adult) (1 - 1-dose 75+ series) 07/06/2074 Hepatitis B Immunization Completed 001, 1999, 1999 Pneumococcal Immunization Combined Aged Out 07/25/2001, 07/31/2000 No longer eligibl e based on patient's age to complete this topic Meningococcal Immunization (ACWY) Aged Out 03/17/2021, 11/12/2012, 10/31/2010 No longer eligible based on patient's age to complete this topic Rotavirus Immunization Aged Out No lo nger eligible based on patient's age to complete this topic [facility] [place] Care Teams Functional Tester Relationship Specialty Start Date End Date Ricky Zepeda DPM Podiatry 08/30/21 Lindy Frausto APRN, TRUST CLERK [address] [place] [address] Nurse Practitioner Advanced Practice Nurse 07/31/22 Jeni Lopes MD [address] [place] [address] Consulting Physician Gastroenterology 12/13/22
--- OUTSIDE RECORDS SUMMARY | 2024-03-21 22:06 | XMS_ITS | Encounter Summary ---
Author Organization [facility] Address [address] [place] [address] Phone Care Team Providers Care Privacy Compliance Manager Name Role Phone Yvette Nash MD Primary Care Provider [phone] Ricky Zepeda DPM Unavailable Unavailable Lindy Frausto APRN, BANQUET LEAD Unavailable Jeni Lopes MD Unavailable [phone] Reason for Visit * Reason Comments Medication Refill Encounter Details Date Type Department Care Team (Late st Contact Info) Description 10/04/2022 Refill [facility] - Family [facility] [address] [place] [address] Damaris Nicolas, [facility] [address] [place] [address] Medication Refill Social History Tobacco Use Types Packs/Day Years [...] encounter Miscellaneous Notes * Telephone Encounter - Tita Medeiros RN - 10/04/2022 2:16 PM CDT Medication failed the protocol, provider to review and approve the medication order if appropriate. Requested Prescriptions Pending Prescriptions Disp Refills amitriptyline (ELAVIL) 10 MG Tablet [Pharmacy Med Name: AMITRIPTYLINE 10MG TABLETS] 90 Tablet 1 Sig: TAKE 1 TABLET BY MOUTH EVERY NIGHT Not Delegated - Tricyclic Agents Protocol Failed - 10/04/2022 7:12 AM Failed - This refill cannot be delegated Passed - Visit with relevant provider in past 12 months or upcoming 90 days Recent Visits Date Type Provider Dept 08/15/22 Office Visit Damaris Nicolas PAC [facility] 06/28/22 Office Visit Damaris Nicolas, PAC [facility] 05/31/22 Office Visit Damaris Nicolas, [facility] Showing recent visits within past 365 days and meeting all other requirements Future Appointments No visits were found meeting these conditions. Showing future appointments within next 90 days and meeting all other requirements documented in this encounter Plan of Treatment Not on file documented as of this encounter Visit Diagnoses Not on filedocumented in this encounter Additional Health Concerns Assessment Noted Time PHQ-9 Depression Total Score: 0 04/07/19 21 3:00 PM ASSEMBLY MACHINE SET UP MECHANIC documented as of this encounter Care Teams Privacy Compliance Manager Relationship Specialty Start Date End Date Yvette Nash MD [address] [place] [address] PCP - General Family Medicine 08/28/21 08/26/23 Ricky Zepeda DPM Podiatry 08/30/21 Lindy Frausto APRN, BANQUET LEAD [address] [place] [address] Nurse Practitioner Advanced Practice Nurse 07/31/22 Jeni Lopes MD [address] [place] [address] Consulting Physician Gastroenterology 12/13/22 documented as of this encounter
--- OUTSIDE RECORDS SUMMARY | 2024-03-21 22:06 | XMS_ITS | Encounter Summary ---
Author Organization [email or web address] Care Team Providers Care Hand Cooper Helper Name Role Phone Yvette Nash MD Primary Care Provider [phone] Ricky Zepeda DPM Unavailable Unavailable Lindy Frausto APRN, RAILWAY STATION MANAGER Unavailable Jeni Lopes MD Unavailable [phone] Encounter Details Date Type Department Care Team (Latest Contact Info) Description 01/01/2023 Travel Social History Tobacco Use Types Packs/Day [...] suspected to have Coronavirus/COVID-19? No / Unsure 01/01/2023 9:31 AM CDT documented as of this encounter Plan of Treatment Not on file documented as of this encounter Visit Diagnoses Not on filedocumented in this encounter Additional Health Concerns Assessment Noted Time PHQ-9 Depression Total Score: 0 04/07/19 21 3:00 PM MILL OPERATOR HELPER documented as of this encounter Care Teams Hand Cooper Helper Relationship Specialty Start Date End Date Yvette Nash MD [address] [place] [address] PCP - General Family Medicine 08/28/21 08/26/23 Ricky Zepeda DPM Podiatry 08/30/21 Lindy Frausto APRN, RAILWAY STATION MANAGER [address] [place] [address] Nurse Practitioner Advanced Practice Nurse 07/31/22 Jeni Lopes MD [address] [place] [address] Consulting Physician Gastroenterology 12/13/22 documented as of this encounter
--- OUTSIDE RECORDS SUMMARY | 2024-03-21 22:06 | XMS_ITS | Encounter Summary ---
Author Organization [facility] Address [address] [place] [address] Phone Care Team Providers Care Board Certified Arts Therapist Name Role Phone Yvette Nash MD Primary Care Provider [phone] Ricky Zepeda DPM Unavailable Unavailable Lindy Frausto APRN, ADVANCED MANUFACTURING ASSOCIATE Unavailable Reason for Visit * Auth/Cert (Routine) Specialty Diagnoses / Procedures Referred By Contac t Referred To Contact Diagnoses ESOSINOPHILIC ESOPHAGITIS Procedures EGD Jeni Lopes MD [address] [place] [address] Phone: tel: fax: Referral ID Status Reason Start Date Expiration Date Visits Re quested Visits Authorized [id number] 1 1 Encounter Details Date Type Department Care Team (Late st Contact Info) Description 10/09/2022 12:05 PM CDT Ancillary [facility] [address] [place] [id number] Jeni Lopes MD [address] [place] [address] Social History Tobacco Use Types [...] suspected to have Coronavirus/COVID-19? No / Unsure 10/09/2022 12:01 PM CDT documented as of this encounter Plan of Treatment Not on file documented as of this encounter Procedures Procedure Name Priority Date/Time Associated Diagnosis Comments GI LAB IMAGING - EGD Routine 10/09/2022 12:03 PM CDT documented in this encounter Results * GI LAB IMAGING - EGD (10/09/2022 12:03 PM CDT) Jeni Lopes MD IMG DIAGNOSTIC ORDERABLES Final Result documented in this encounter Visit Diagnoses Not on filedocumented in this encounter Additional Health Concerns Assessment Noted Time PHQ-9 Depression Total Score: 0 04/07/19 21 3:00 PM UTILITY FORESTER documented as of this encounter Care Teams Board Certified Arts Therapist Relationship Specialty Start Date End Date Yvette Nash MD [address] [place] [address] PCP - General Family Medicine 08/28/21 08/26/23 Ricky Zepeda DPM Podiatry 08/30/21 Lindy Frausto APRN, ADVANCED MANUFACTURING ASSOCIATE [address] [place] [address] Nurse Practitioner Advanced Practice Nurse 07/31/22 documented as of this encounter
--- OUTSIDE RECORDS SUMMARY | 2024-03-21 22:06 | XMS_ITS | Encounter Summary ---
Author Organization [facility] Address [address] [place] [address] Phone Care Team Providers Care Bellhop Captain Name Role Phone Yvette Nash MD Primary Care Provider [phone] Ricky Zepeda DPM Unavailable Unavailable Lindy Frausto APRN, SERVICE DESK TECHNICIAN Unavailable Encounter Details Date Type Department Care Team (Late st Contact Info) Description 10/31/2022 Telephone [facility] - Gastroenterology - [facility] [address] [place] [address] Lindy Frausto APRN, SERVICE DESK TECHNICIAN [address] [place] [address] Social History Tobacco Use Types [...] PM CDT documented as of this encounter Miscellaneous Notes * Telephone Encounter - Franck Flores CMA - 11/01/2022 8:24 AM CDT Received fax from [employer]. Flovent HFA has been approved from 10/31/22 to 03/10/23. This was called to Leyla claudio ceramics technician. It would not go through so she asked that I fax it to herat fax number [phone]. Confirmation obtained. * Telephone Encounter - Franck Flores CMA - 10/31/2022 9:34 AM CDT Per request received, prior authorization has been started through CoverMyMeds for the Flovent inhaler. Means: [id number] documented in this encounter Plan of Treatment Not on file documented as of this encounter Visit Diagnoses Not on filedocumented in this encounter Additional Health Concerns Assessment Noted Time PHQ-9 Depression Total Score: 0 04/07/19 21 3:00 PM PIPELINER documented as of this encounter Care Teams Bellhop Captain Relationship Specialty Start Date End Date Yvette Nash MD [address] [place] [address] PCP - General Family Medicine 08/28/21 08/26/23 Ricky Zepeda DPM Podiatry 08/30/21 Lindy Frausto APRN, SERVICE DESK TECHNICIAN [address] [place] [address] Nurse Practitioner Advanced Practice Nurse 07/31/22 documented as of this encounter
--- OUTSIDE RECORDS SUMMARY | 2024-03-21 22:06 | XMS_ITS | Encounter Summary ---
Author Organization [facility] Address [address] [place] [address] Phone Care Team Providers Care Orthopaedic General Name Role Phone Yvette Nash MD Primary Care Provider [phone] Ricky Zepeda DPM Unavailable Unavailable Lindy Frausto APRN, ATHLETIC AGENT Unavailable Jeni Lopes MD Unavailable [phone] Reason for Visit * Reason Onset Date Comments Medication Management 05/13/2023 Encounter Details Date Type Department Care Team (Late st Contact Info) Description 05/13/2023 Telephone [facility] [address] [place] [address] Yvette Nash MD [address] [place] [address] Medication Management Social History Tobacco Use Types Packs/Day Years [...] documented as of this encounter Functional Status * Question Answer Date of Assessment Author Little interest or pleasure in doing things Not at all 05/13/2023 2:44 PM BELLMAN Theresa Sanabria C MA Feeling down, depressed, or hopeless Not at all 05/13/2023 2:44 PM BELLMAN Theresa Sanabria C MA * Over the past 2 weeks, how often have you been bothered by any of the following problems? Question Answer Date of Assessment Author Patient Health Questionnaire -2 Score 0 05/13/2023 2:44 PM BELLMAN Theresa Sanabria C MA documented as of this encounter Miscellaneous Notes * Telephone Encounter - Kathleen Trevino RN - 05/13/2023 4:52 PM BELLMAN Patient calling to report that pharmacy did not receive the prescription for Augmentin that was ordered at his office visit this afternoon. Patient did receive the albuterol inhaler and the benzonatate. Prescription for Augmentin called to the pharmacy and message left on the pharmacy voicemail. MAN documented in this encounter Plan of Treatment Not on file documented as of this encounter Visit Diagnoses Not on filedocumented in this encounter Additional Health Concerns Assessment Noted Time PHQ-9 Depression Total Score: 0 05/13/19 24 2:44 PM BELLMAN documented as of this encounter Care Teams Orthopaedic General Relationship Specialty Start Date End Date Yvette Nash MD [address] [place] [address] PCP - General Family Medicine 08/28/21 08/26/23 Ricky Zepeda DPM Podiatry 08/30/21 Lindy Frausto APRN, ATHLETIC AGENT [address] [place] [address] Nurse Practitioner Advanced Practice Nurse 07/31/22 Jeni Lopes MD [address] [facility] [place] [place] [address] Consulting Physician Gastroenterology 12/13/22 documented as of this encounter
--- OUTSIDE RECORDS SUMMARY | 2024-03-21 22:06 | XMS_ITS | Encounter Summary ---
Author Organization [facility] Address [address] [place] [address] Phone Care Team Providers Care Lehr Attendant Name Role Phone Yvette Nash MD Primary Care Provider [phone] Ricky Zepeda DPM Unavailable Unavailable Lindy Frausto APRN, AUTOGRAPHER Unavailable Jeni Lopes MD Unavailable [phone] Reason for Visit * Reason Onset Date Comments Results 01/04/2023 Encounter Details Date Type Department Care Team (Late st Contact Info) Description 01/04/2023 Telephone [facility] [address] [place] [address] Jeni Lopes MD [address] [place] [address] Results Social History Tobacco Use Types Packs/Day [...] AM CDT documented as of this encounter Miscellaneous Notes * Telephone Encounter - Tiffany Cook RN - 01/10/2023 1:44 PM CDT Patient is aware and verbalizes understanding. Recall placed. * Telephone Encounter - Tiffany Cook RN - 01/04/2023 1:52 PM CDT Left message to call back. * Telephone Encounter - Tiffany Cook RN - 01/04/2023 1:51 PM CDT ----- Message from Jeni Lopes MD sent at 01/02/2023 9:09 AM CDT ----- Minimally slow contraction of the gallbladder but none very significant. Nausea medications such as Zofran as needed. Follow-up in the GI in 2-3 months documented in this encounter Plan of Treatment Not on file documented as of this encounter Visit Diagnoses Not on filedocumented in this encounter Additional Health Concerns Assessment Noted Time PHQ-9 Depression Total Score: 0 04/07/19 21 3:00 PM PERIPATOLOGIST documented as of this encounter Care Teams Lehr Attendant Relationship Specialty Start Date End Date Yvette Nash MD [address] [place] [id number] PCP - General Family Medicine 08/28/21 08/26/23 Ricky Zepeda DPM Podiatry 08/30/21 Lindy Frausto APRN, AUTOGRAPHER [address] [place] [address] Nurse Practitioner Advanced Practice Nurse 07/31/22 Jeni Lopes MD [address] [place] [address] Consulting Physician Gastroenterology 12/13/22 documented as of this encounter
--- OUTSIDE RECORDS SUMMARY | 2024-03-21 22:06 | XMS_ITS | Encounter Summary ---
Author Organization [employer] Care Team Providers Care Animal Science Professor Name Role Phone Yvette Nash MD Primary Care Provider [phone] Ricky Zepeda DPM Unavailable Unavailable Lindy Frausto APRN, BARREL BRIDGE ASSEMBLER Unavailable Jeni Lopes MD Unavailable [phone] Encounter Details Date Type Department Care Team (Latest Contact Info) Description 12/13/2022 Travel Social History Tobacco Use Types Packs/Day [...] Total Score: 0 04/07/19 21 3:00 PM COLLET MAKER documented as of this encounter Care Teams Animal Science Professor Relationship Specialty Start Date End Date Yvette Nash MD [address] [place] [address] PCP - General Family Medicine 08/28/21 08/26/23 Ricky Zepeda DPM Podiatry 08/30/21 Lindy Frausto APRN, BARREL BRIDGE ASSEMBLER [address] [place] [address] Nurse Practitioner Advanced Practice Nurse 07/31/22 Jeni Lopes MD [address] [place] [address] Consulting Physician Gastroenterology 12/13/22 documented as of this encounter
--- OUTSIDE RECORDS SUMMARY | 2024-03-21 22:06 | XMS_ITS | Encounter Summary ---
Author Organization [facility] Address [address] [place] [address] Phone Care Team Providers Care Credit Risk Management Director Name Role Phone Yvette Nash MD Primary Care Provider [phone] Ricky Zepeda DPM Unavailable Unavailable Lindy Frausto APRN, VERIFICATION REP Unavailable Jeni Lopes MD Unavailable [phone] Reason for Visit * Reason Onset Date Comments Medication Refill 07/08/2023 Encounter Details Date Type Department Care Team (Late st Contact Info) Description 07/08/2023 Refill [facility] - [facility] [address] [place] [address] Yvette Nash MD [address] [place] [address] Medication Refill Social History Tobacco Use Types [...] Telephone Encounter - Tita Medeiros RN - 07/08/2023 5:07 PM CDT Medication failed the protocol, provider to review and approve the medication order if appropriate. Requested Prescriptions Pending Prescriptions Disp Refills amitriptyline (ELAVIL) 10 MG Tablet 90 Tablet 0 Sig: Take 1 Tablet by mouth nightly. Not Delegated - Tricyclic Agents Protocol Failed - 07/08/2023 11:10 AM Failed - This refill cannot be delegated Passed - Visit with relevant provider in past 12 months or upcoming 90 days Recent Visits Date Type Provider Dept 05/13/23 Office Visit Damaris Nicolas PAC [facility] 08/15/22 Office Visit Damaris Nicolas, PAC [facility] Showing recent visits within past 365 days and meeting all other requirements Future Appointments No visits were found meeting these conditions. Showing future appointments within next 90 days and meeting all other requirements * Telephone Encounter - Geni Huerta MA - 07/08/2023 11:09 AM CDT [facility] refill fax request: Amitriptyline 10 mg tabs Take one tab by mouth every night 90 quant documented in this encounter Plan of Treatment Not on file documented as of this encounter Visit Diagnoses Not on filedocumented in this encounter Additional Health Concerns Assessment Noted Time PHQ-9 Depression Total Score: 0 05/13/19 24 2:44 PM BENDER MACHINE documented as of this encounter Care Teams Credit Risk Management Director Relationship Specialty Start Date End Date Yvette Nash MD [address] [place] [address] PCP - General Family Medicine 08/28/21 08/26/23 Ricky Zepeda DPM Podiatry 08/30/21 Lindy Frausto APRN, VERIFICATION REP [address] [place] [address] Nurse Practitioner Advanced Practice Nurse 07/31/22 Jeni Lopes MD [address] [place] [address] Consulting Physician Gastroenterology 12/13/22 documented as of this encounter
--- OUTSIDE RECORDS SUMMARY | 2024-03-21 22:06 | XMS_ITS | Encounter Summary ---
Author Organization [facility] Address [address] [place] [address] Phone Care Team Providers Care Lead Applications Developer Name Role Phone Yvette Nash MD Primary Care Provider [phone] Ricky Zepeda DPM Unavailable Unavailable Lindy Frausto APRN, TABLE COVER FOLDER Unavailable Jeni Lopes MD Unavailable [phone] Reason for Visit * Reason Onset Date Comments Medication Refill 01/02/2023 Encounter Details Date Type Department Care Team (Late st Contact Info) Description 01/02/2023 Refill [facility] - [facility] [address] [place] [address] Lindy Frausto APRN, TABLE COVER FOLDER [address] [place] [address] Medication Refill Social History Tobacco Use Types [...] Telephone Encounter - Tiffany Cook RN - 01/02/2023 8:53 AM CDT Medication failed the protocol, provider to review and approve the medication order if appropriate. Requested Prescriptions Pending Prescriptions Disp Refills fluticasone (FLOVENT HFA) 220 MCG/ACT Aerosol 12 g 3 Sig: Take 2 puffs by mouth daily Inhaled Steroids Protocol Failed - 01/02/2023 8:31 AM Failed - Active short-acting beta agonist prescription Passed - Visit with relevant provider in past 12 months or upcoming 90 days Recent Visits Date Type Provider Dept 12/13/22 Office Visit Jeni Lopes MD [facility] 08/15/22 Office Visit Damaris Nicolas PAC [facility] 07/31/22 Office Visit Lindy Frausto APRN, TABLE COVER FOLDER [facility] 06/28/22 Office Visit Damaris Nicolas PAC [facility] 05/31/22 Office Visit Damaris Nicolas PAC [facility] Showing recent visits within past 365 days and meeting all other requirements Future Appointments Date Type Provider Dept 02/18/23 Appointment Damaris Nicolas PAC [facility] Showing future appointments within next 90 days and meeting all other requirements * Telephone Encounter - Franck Flores CMA - 01/02/2023 8:30 AM CDT Received faxed refill request from [facility] documented in this encounter Plan of Treatment Not on file documented as of this encounter Visit Diagnoses Diagnosis Eosinophilic esophagitis documented in this encounter Additional Health Concerns Assessment Noted Time PHQ-9 Depression Total Score: 0 04/07/19 21 3:00 PM END PACKER documented as of this encounter Care Teams Lead Applications Developer Relationship Specialty Start Date End Date Yvette Nash MD [address] [place] [address] PCP - General Family Medicine 08/28/21 08/26/23 Ricky Zepeda DPM Podiatry 08/30/21 Lindy Frausto APRN, TABLE COVER FOLDER [address] [place] [address] Nurse Practitioner Advanced Practice Nurse 07/31/22 Jeni Lopes MD [address] [place] [address] Consulting Physician Gastroenterology 12/13/22 documented as of this encounter
--- OUTSIDE RECORDS SUMMARY | 2024-03-21 22:06 | XMS_ITS | Encounter Summary ---
Author Organization [facility] Address [address] [place] [address] Phone Care Team Providers Care Male Infertility Specialist Name Role Phone Yvette Nash MD Primary Care Provider [phone] Ricky ZepedaM Unavailable Unavailable Lindy Frausto APRN, BODY DIE MAKER Unavailable Reason for Referral * Radiology Services (Routine) - Closed Specialty Diagnoses / Procedures Referred By Leonard gonzalez Referred To Contact Radiology Procedures GI LAB IMAGING - EGD Jeni Lopes MD [address] [place] [address] Phone: tel: fax: Referral ID Status Reason Start Date Expiration Date Visits Re quested Visits Authorized [id number] Closed 10/09/2022 1 1 Reason for Visit * Auth/Cert (Routine) Specialty Diagnoses / Procedures Referred By Leonard gonzalez Referred To Contact Diagnoses ESOSINOPHILIC ESOPHAGITIS Procedures EGD Jeni Lopes MD [address] [place] [address] Phone: tel: fax: Referral ID Status Reason Start Date Expiration Date Visits Re quested Visits Authorized [id number] 1 1 Encounter Details Date Type Department Care Team (Latest Contact Info) Description 10/09/2022 12:00 PM CDT - 10/09/2022 2:21 PM CDT Hospital Encounter [facility] Lab Preop/Pacu II [address] [place] [address] Jeni Lopes MD [address] [place] [address] Discharge Disposition: Discharged to home or Selfcare [...] PM CDT documented as of this encounter Last Filed Vital Signs Vital Sign Reading Time Taken Comments Blood Pressure 125/80 10/09/2022 2:15 PM CDT Pulse 66 10/09/2022 2:15 PM CDT Temperature - - Respiratory Rate 16 10/09/2022 2:15 PM CDT Oxygen Saturation 98% 10/09/2022 2:15 PM CDT Inhaled Oxygen Concentration - - Weight 100.2 kg (221 lb) 10/02/2022 11:00 AM CDT Height 172.7 cm (5' 8 ) 10/02/2022 11:00 AM CDT Body Mass Index 33.6 10/02/2022 11:00 AM CDT documented in this encounter Discharge Instructions * Discharge Instructions* Yumi Gibbons, RN - 10/09/2022 1:42 PM CDT YOU HAD AN EGD TODAY. DR. LOPES FOUND: Findings: Normal-appearing posterior pharynx. Esophagus shows multiple linear furrows. GE junction has some ulcerations. Biopsies obtained from these 2 areas. The gastric mucosa appears normal. Gastric biopsies obtained. Retroflexed view otherwise unremarkable. Duodenal bulb shows multiple superficial ulcerations and erosions. Biopsies obtained. Second part of the duodenum and ampulla looks normal. Biopsies obtained from the 2nd part of the duodenum. Recommendations: Check biopsies. Consider another referral to the intermediate school teacher. He likely should have a relationship at the [facility] [place] [place]. I would recommend that he should make an appointment with Dr. Linares for long-term follow-up on this. Most likely he will need to be started on Dupixent. Follow-up in the GI clinic in [address], WORK, OPERATE MACHINERY OR USE POWER TOOLS UNTIL DAY AFTER PROCEDURE. NO ALCOHOL BEVERAGES TODAY FOLLOWING DAY: RETURN TO FULL ACTIVITY, INCLUDING WORK, UNLESS INSTRUCTED OTHERWISE. Call doctor's office ([phone]) or go to Emergency room for: Difficulty Breathing, Headache Or Visual Disturbances Persistent Dizziness Or Light-Headedness Persistent Nausea and Vomiting Temperature greater then 100.0 Significant abdominal pain, chest pain, or bleeding. Here at [facility] we strive to provide excellent care to each of our patients, along with an easy transition between departments, starting with registration until discharge. Through our excellent care and services, we hope that you would recommend our services to your family and friends. You will receive a follow-up phone call in 24-48 hours after your procedure to see how you are doing. This gives our patients the opportunity to recognize any members from our team, from housekeepers, to nurses, to physicians, that you felt gave you excellent service as well as any suggestions for improvement. We hope you found our facility clean and our mission partners courteous. You may also receiving a survey in the mail. We would appreciate it if you could complete the form and return it. A self addressed pre-paid envelope is provided. Thank you for choosing [facility]. * Attachments The following attachments cannot be sent through Care Everywhere. * Low-FODMAP Eating Plan (Swiss) documented in this encounter Medications at Time of Discharge CREATINE PO Take by mouth as needed. dicyclomine (BENTYL) 10 MG CapsuleIndication s:Left upper quadrant abdominal pain Take 1 Capsule by mouth 2 times daily as needed for Other. 60 Capsule 3 07/31/2022 MAGNESIUM PO Take by mouth as needed. ondansetron (ZOFRAN) 4 MG Tablet Take 1 Tablet by mouth every 8 hours as needed for Nausea - 1st line. 15 Tablet 2 08/02/2022 pantoprazole (PROTONIX) 40 MG Tablet Delayed ResponseIndicatio ns:Eosinophilic esophagitis Take 1 Tablet by mouth 2 times daily. 180 Tablet 08/15/2022 amitriptyline (ELAVIL) 10 MG Tablet TAKE 1 TABLET BY MOUTH EVERY NIGHT 90 Tablet 1 10/04/2022 07/08/2023 fluticasone (FLOVENT HFA) 220 MCG/ACT AerosolIndication s:Eosinophilic esophagitis Take 2 puffs by mouth daily 12 g 3 07/31/2022 01/02/2023 documented as of this encounter H&P Notes * Jeni Lopes MD - 10/09/2022 1:25 PM CDT HISTORY AND PHYSICAL Jeni Lopes MD Date of Exam: 10/09/2022 Date of Admission: 10/09/2022 Lavelle Michael, (date of 2000) is a 22 y.o. at hospital day: (LOS: 1 hour) Assessment : History of eosinophilic esophagitis eosinophilic enteritis. Has been treated since childhood at [facility]. Last time seen there was at age 20. Recently has been having more nausea. Intermittent diarrhea also there. He did have few colonoscopies also but does not think he had eosinophils in his colon. Only hyperplastic polyp was noted but otherwise unremarkable. No weight loss reported though. Problem List: Patient Active Problem List Diagnosis ??? High triglycerides Plan: EGD as requested Chief Complaints: As noted above HPI: History as in the recent office visit in the chart Past Medical History: has a past medical history of Eosinophilic gastroenteritis. Past Surgical History: has a past surgical history that includes Testicle Surgery (N/A) and Upper Gastrointestinal Endoscopy. Medications: Current Facility-Administered Medications: ??? lactated ringers infusion Allergies: Allergies Allergen Reactions ??? Medical Adhesive Remover Rash (reported on 05/05/2012) Clear tape caused irritation; please use cloth tape. Social History: reports that he has never smoked. He has never used smokeless tobacco. He reports that he does not drink alcohol and does not use drugs. Family History: family history includes Diabetes in his paternal grandfather; No Known Problems in his brother, father, and mother. ROS: Pertinent items are noted in history of present illness. Physical Exam: BP 132/81 Pulse 64 Resp 16 Ht 5' 8 (1.727 m) Wt 221 lb (100.2 kg) SpO2 98% BMI 33.60 kg/m?? General appearance: alert, no distress, cooperative, appears stated age Lungs: no acute distress, clear to auscultation bilaterally Heart: regular rate and rhythm, S1, S2 normal, no murmur, click, rub or gallop Abdomen: soft, non-tender. Bowel sounds normal. No masses, no organomegaly Labs: Lab Results Component Value Date WBC 11.10 06/28/2022 HEMOGLOBIN 16.6 (H) 06/28/2022 HEMATOCRIT 47.4 06/28/2022 PLATELETCNT 296 06/28/2022 MCV 87.8 06/28/2022 No results found for: INR No components found for: LFT No components found for: BMP No results found. I have explained the risks, benefits, and alternatives of the procedure to the patient and family. They wish to proceed with procedure. Jeni Lopes MD 10/09/2022 1:25 PM CDT documented in this encounter OR Notes * OR Surgeon - Jeni Lopes MD - 10/09/2022 1:41 PM CDT EGD Lavelle Michael 2000 22 y.o. male 10/09/2022 12:00 PM Date of Procedure: 10/09/2022 Pre-operative Diagnosis: ESOSINOPHILIC ESOPHAGITIS AND ENTERITIS DIAGNOSIS MADE A CHILD IN THE POSEY. RECENTLY HAS BEEN HAVING MORE NAUSEA. Post-operative Diagnosis: LIKELY EOSINOPHILIC ESOPHAGITIS. SUPERFICIAL DUODENAL EROSIONS. Procedure(s): Procedure(s): EGD - LINEAR FURROWS IN ESOPHAGUS, DUODENAL BULB SUPERFICIAL ULCERS (BIOPSY FORCES), SECOND PORTIONDUODENAL BIOPSIES (BIOPSY FORCEPS), ANTRAL BIOPSY (BIOPSY FORCEPS), DISTAL ESOPHAGUS BIOPSY (BIOPSYFORCEPS) Surgeon: Jeni Lopes MD Anesthesia: Anesthesia Specimens: No specimens collected Estimated Blood Loss: 0 ML Description: After the risks, benefits and alternatives of the above procedure were explained to the patient, consent is obtained. The patient is brought to Endoscopy, monitored and sedated to maintain a level ofcomfort. The video gastroscope is placed into the oral cavity and then advanced into the second portion of the duodenum under direct visualization. The scope is withdrawn through the duodenal sweep,bulb,pylorus,antrum,and body of the stomach. Retroflex view of the cardia and fundus was then carried out. Air is removed from the stomach and the scope was brought up to the GE junction. The distal, mid and proximal esophagus were examined closely. The following findings/procedures were observed. The scope was removed from the patient, who tolerated the procedure well. Recovery occurred in Endoscopy and the patient then transferred to Postop in stable condition. Findings: Normal-appearing posterior pharynx. Esophagus shows multiple linear furrows. GE junction has some ulcerations. Biopsies obtained from these 2 areas. The gastric mucosa appears normal. Gastric biopsies obtained. Retroflexed view otherwise unremarkable. Duodenal bulb shows multiple superficial ulcerations and erosions. Biopsies obtained. Second part of the duodenum and ampulla looks normal. Biopsies obtained from the 2nd part of the duodenum. Recommendations: Check biopsies. Consider another referral to the intermediate school teacher. He likely should have a relationship at the [facility] [place] [place]. I would recommend that he should make an appointment with Dr. Linares for long-term follow-up on this. Most likely he will need to be started on Dupixent. Follow-up in the GI clinic in 4 weeks. Thank you for allowing me to participate in the care of your patient. Surgeon: Jeni Lopes MD, 10/09/2022, 1:41 PM CDT documented in this encounter Miscellaneous Notes * Plan of Care - Chelsey Roldan RN - 10/09/2022 12:04 PM CDT Problem: Adult Inpatient Plan of Care Goal: Plan of Care Review Outcome: Ongoing (see interventions/notes) Goal: Patient-Specific Goal (Individualized) Outcome: Ongoing (see interventions/notes) Goal: Absence of Hospital-Acquired Illness or Injury Outcome: Ongoing (see interventions/notes) Goal: Optimal Comfort and Wellbeing Outcome: Ongoing (see interventions/notes) Goal: Readiness for Transition of Care Outcome: Ongoing (see interventions/notes) * Interdisciplinary - Cristina Tanner RN - 10/02/2022 12:18 PM CDT [facility] GI TEACHING Patient Name: Lavelle Michael : 2000 [facility]#: [id number] Person Educated Patient Ready to Learn Yes Teaching Method Phone No covid test required per Hospital policy The Day of Procedure: Call your physician if your physical condition changes (cold, fever, flu). Do not come to the hospital without first calling your physician. Follow your surgeon's instructions regarding your diet, bowel prep, and medications if applicable. If your have any questions, please contact your surgeon's office. No alcohol and no smoking for 24 hrs prior to procedure if applicable. Wear comfortable, loose fitting clothing. Instruction to leave all jewelry at home including wedding/engagement rings or any body piercing jewelry. Leave all valuables at home. Children ages under 16 must be accompanied by a parent or legal guardian in the hospital at all times. Detailed instructions given for arrival location and parking. Arrive for your procedure as instructed by the [facility]. Go to Registration the morning of the procedure to check in. Arrange for a responsible person to accompany you and drive you home following your procedure. Follow directions regarding which medications to take or hold. It is very important to follow directions on diabetic medication or blood thinners from your surgeon's office. When you come to the hospital only 1 adult over the age of 16 will be allowed to accompany you to the [facility]. No children under the age of 16 will be allowed in the [facility] unless they are the patient. If the patient chooses to bring their children under the age of 16, an adult must accompany those children in the surgery waiting room and cannot leave them unattended. During the flu season: refer to the visitation restriction guidelines implemented during that season if applicable. Fall Prevention Teaching The Day of Surgery: ?? Your safety while you are in the hospital is very important to us. Following surgery, you might be at increased risk for falling for several reasons: ??? -The hospital environment is unfamiliar. It???s not the same as being at home ??? -You may be weaker than you realize. ??? -You may be connected to lines or equipment that can cause you to trip. ??? -You may be on medications that make you drowsy or dizzy. We know this can happen especially with pain medication and anesthesia. ??? We want to partner with you in the hospital to make sure you are safe ??? -Please do not feel hesitant to ask for help while in the hospital. You will -need extra help until you get stronger especially with walking and using the bathroom. ??? -Pay close attention to what the doctors and nurses tell you about your risk of falling. ??? -A fall can mean a longer hospital stay. Also, injuries from a fall can affect your health for the rest of your life. ??? Some things the nurses may do to keep you safe are: ??? -Have you use the call light for help whenever you get out of bed. ??? -Wear non-skid slippers to keep you from slipping on the floors ??? -Use a special belt that wraps around your waist so we can help steady you when you walk ??? -Activate an alarm on your bed so we know if you are getting up in case you forget to use your call light ??? -Stay in the bathroom with you in case you become dizzy or light headed Response to Teaching: Verbalizes Understanding Patient assessed for aerial photograph interpreter during the preop interview and appropriate interventions taken if applicable. documented in this encounter Plan of Treatment Not on file documented as of this encounter Procedures Procedure Name Priority Date/Time Associated Diagnosis Comments PATHOLOGY SURGICAL Routine 10/09/2022 1:48 PM CDT EGD 10/09/2022 1:23 PM CDT EGD - LINEAR FURROWS IN ESOPHAGUS, DUODENAL BULB SUPERFICIAL ULCERS BIOPSY (BIOPSY FORCEPS), SECOND PORTION DUODENAL BIOPSIES (BIOPSY FORCEPS), ANTRAL BIOPSY (BIOPSY FORCEPS), DISTAL ESOPHAGUS BIOPSY (BIOPSY FORCEPS) Special Needs Dx [facility]OE GI LAB IMAGING - EGD Routine 10/09/2022 12:03 PM CDT documented in this encounter Results * Pathology Surgical (10/09/2022 1:48 PM CDT) Case Report Surgical Pathology Report ? Case: [id number] ? Authorizing Provider: ??Jeni Lopes MD ? Collected: ? 10/09/2022 01:48 PM ? Ordering Location: ? [facility] ? Received: ?10/09/2022 02:12 PM ? [facility] GI ? Lab Preop/Pacu II ? Pathologist: ? King Ivy MD ? Specimens: ?? A) - Small Bowel Biopsy, DUODENAL BULB SUPERFICAL ULCERS ? B) - Small Bowel Biopsy, SECOND PORTION DOUDENAL BIOPSIES ? C) - Stomach, ANTRAL BIOPSY ? D) - Esophagus, DISTAL ESOPHAGUS BIOPSY ? 10/10/2022 8:16 AM CDT [facility] FINAL DIAGNOSIS A. DUODENAL BULB SUPERFICIAL ULCERS, BIOPSY: - FOCAL NODULAR DUODENITIS WITH SURFACE ULCERATIONS AND A FEW EOSINOPHILS CONSISTENT WITH CHRONIC INFLAMMATION POSSIBLY SECONDARY TO PEPTIC ULCER DISEASE. - NEGATIVE FOR INCREASED INTRAEPITHELIAL LYMPHOCYTES - NO PARASITES OR VIRAL CHANGE IS IDENTIFIED B. SECOND PORTION DUODENAL BIOPSY: - FOCAL NODULAR DUODENITIS WITH A FEW EOSINOPHILS CONSISTENT WITH CHRONIC INFLAMMATION POSSIBLY SECONDARY TO PEPTIC ULCER DISEASE. - NO ACUTE INFLAMMATORY CHANGE IS IDENTIFIED - NEGATIVE FOR INCREASED INTRAEPITHELIAL LYMPHOCYTES - NO PARASITES OR VIRAL CHANGE IS IDENTIFIED C. ANTRAL BIOPSY: - BENIGN GASTRIC MUCOSA WITH CHRONIC INFLAMMATION. - GIEMSA STAIN NEGATIVE FOR H.PYLORI ORGANISMS. - NO EVIDENCE OF DYSPLASIA OR MALIGNANCY. D. DISTAL ESOPHAGUS BIOPSY: - BENIGN SQUAMOUS MUCOSA WITH EOSINOPHIL RICH ESOPHAGITIS (GREATER THAN 20 EOSINOPHILS PER SINGLE HIGH POWER FIELD, MAXIMUM COUNT) SEE COMMENT. - NEGATIVE FOR DYSPLASIA, MALIGNANCY, INTESTINAL METAPLASIA. - NO VIRAL INCLUSIONS OR FUNGAL HYPHAE IDENTIFIED. 10/10/2022 8:16 AM CDT [facility] Comment THE BIOPSY DEMONSTRATES MARKEDLY REACTIVE BASAL CELL HYPERPLASIA WITH INCREASED EOSINOPHILS. THE EOSINOPHILS HAVE A TOP HEAVY DISTRIBUTION AND A FEW EOSINOPHILIC MICROABSCESSES ARE IDENTIFIED. THESE FEATURES ARE CONSISTENT WITH EOSINOPHILIC ESOPHAGITIS IN THE PROPER CLINICAL CONTEXT. 10/10/2022 8:16 AM CDT [facility] Pre-Operative Diagnosis EOSINOPHILIC ESOPHAGITIS 10/10/2022 8:16 AM CDT [facility] Gross Description A. DUODENAL BULB SUPERFICAL ULCERS The specimen presents in four formalin containers for gross and microscopic examination labeled with the patient's name, Lavelle Michael. Part A is designated duodenal bulb superficial ulcers. The specimen consists of three pieces of light santizo tissue measuring 0.2 to 0.3 cm in greatest dimension. All submitted cassette A1. B. SECOND PORTION DOUDENAL BIOPSIES Part B is designated second portion duodenal biopsy. The specimen consists of three pieces of light santizo tissue measuring 0.2 to 0.3 cm in greatest dimension. All submitted cassette B1. C. ANTRAL BIOPSY Part C is designated antral biopsy. The specimen consists of four pieces of light santizo tissue measuring 0.1 to 0.3 cm in greatest dimension. All submitted cassette C1. D. DISTAL ESOPHAGUS BIOPSY Part D is designated distal esophagus biopsy. The specimen consists of multiple pieces of white translucent tissue measuring from a fraction of a millimeter up to 0.3 cm in greatest dimension. It is questionable whether all pieces will survive processing. These are submitted in cassette D1. KS/sb 10/10/2022 8:16 AM CDT [facility] Microscopic Description Microscopic examination was performed which supports the final diagnosis. All control tissues stained appropriately. 10/10/2022 8:16 AM CDT [facility] Tissue TISSUE SPECIMEN FROM SMALL INTESTINE / Unknown 10/09/2022 1:48 PM CDT 10/09/2022 2:12 PM CDT Tissue specimen (specimen) TISSUE SPECIMEN FROM SMALL INTESTINE / Unknown 10/09/2022 1:50 PM CDT 10/09/2022 2:12 PM CDT Tissue specimen (specimen) STOMACH STRUCTURE / Unknown 10/09/2022 1:50 PM CDT 10/09/2022 2:12 PM CDT Tissue specimen (specimen) ESOPHAGEAL STRUCTURE / Unknown 10/09/2022 1:50 PM CDT 10/09/2022 2:12 PM CDT us Jeni Lopes MD PATHOLOGY/CYTOLOGY ORDERABLES F inal Result [facility] [address] [place] [address] * GI LAB IMAGING - EGD (10/09/2022 12:03 PM CDT) us Jeni Lopes MD IMG DIAGNOSTIC ORDERABLES Final Result documented in this encounter Visit Diagnoses Diagnosis Eosinophilic esophagitis- Primary documented in this encounter Administered Medications Inactive Administered Medications - up to 3 most recent administrations Medication Order MAR Action Action Date Dose Rate Site lactated ringers infusion at 20 mL/hr, Intravenous, CONTINUOUS, Starting on Sat10/09/22 at 1230, Until Sat10/09/22 at 1622, PRE-OP (SURGERY) New Bag 10/09/2022 12:30 PM CDT 20 mL/hr 20 mL/hr documented in this encounter Active and Recently Administered Medications Times are shown in CDT. Continuous Medication Order 10/07/2022 10/08/2022 10/09/2022 lactated ringers infusion at 20 mL/hr, Intravenous, CONTINUOUS, Starting on Sat10/09/22 at 1230, Until Sat10/09/22 at 1622, PRE-OP (SURGERY) 1230 (New Bag - Prov ider: Lea Sandoval, MARGARET)1326 (Continued by Anesthesia - Provider: Wellington Gallego APRN, SAP FUNCTIONAL ANALYST)1417 (Stopped - Provider: Lea Sandoval, MARGARET) documented in this encounter Additional Health Concerns Assessment Noted Time PHQ-9 Depression Total Score: 0 04/07/19 21 3:00 PM CONTINUOUS ABSORPTION PROCESS OPERATOR documented as of this encounter Care Teams Male Infertility Specialist Relationship Specialty Start Date End Date Yvette Nash MD [address] [place] [address] PCP - General Family Medicine 08/28/21 08/26/23 Ricky Zepeda DPM Podiatry 08/30/21 Lindy Frausto APRN, BODY DIE MAKER [address] [place] [address] Nurse Practitioner Advanced Practice Nurse 07/31/22 documented as of this encounter
--- OUTSIDE RECORDS SUMMARY | 2024-03-21 22:06 | XMS_ITS | Encounter Summary ---
Author Organization [facility] Care Team Providers Care Linoleum Installer Name Role Phone Yvette Nash MD Primary Care Provider [phone] Ricky Zepeda DPM Unavailable Unavailable Lindy Frausto APRN, AIR TRAFFIC COORDINATOR Unavailable Jeni Lopes MD Unavailable [phone] Encounter Details Date Type Department Care Team (Latest Contact Info) Description 05/13/2023 Travel Social History Tobacco Use Types Packs/Day [...] Recorded Total Score - Questions 1-9 0 06/2023 Education Answer Date Recorded What is [...] things Not at all 05/13/2023 2:44 PM TERRAZZO SUPERVISOR Theresa Sanabria C MA Feeling down, depressed, or hopeless Not at all 05/13/2023 2:44 PM TERRAZZO SUPERVISOR Theresa Sanabria C MA * Over the past 2 weeks, how often have you been bothered by any of the following problems? Question Answer Date of Assessment Author Patient Health Questionnaire -2 Score 0 05/13/2023 2:44 PM TERRAZZO SUPERVISOR Theresa Sanabria C MA documented as of this encounter Plan of Treatment Not on file documented as of this encounter Visit Diagnoses Not on filedocumented in this encounter Additional Health Concerns Assessment Noted Time PHQ-9 Depression Total Score: 0 05/13/19 2:44 PM TERRAZZO SUPERVISOR documented as of this encounter Care Teams Linoleum Installer Relationship Specialty Start Date End Date Yvette Nash MD [address] [place] [address] PCP - General Family Medicine 08/28/21 08/26/23 Ricky Zepeda DPM Podiatry 08/30/21 Lindy Frausto APRN, AIR TRAFFIC COORDINATOR [address] [place] [address] Nurse Practitioner Advanced Practice Nurse 07/31/22 Jeni Lopes MD [address] [place] [address] Consulting Physician Gastroenterology 12/13/22 documented as of this encounter
--- OUTSIDE RECORDS SUMMARY | 2024-03-21 22:06 | XMS_ITS | Encounter Summary ---
Author Organization [facility] Address [address] [place] [address] Phone Care Team Providers Care Appliances Sample Maker Name Role Phone Yvette Nash MD Primary Care Provider [phone] Ricky Zepeda DPM Unavailable Unavailable Lindy Frausto APRN, PHP MYSQL DEVELOPER Unavailable Reason for Visit * Auth/Cert (Routine) Specialty Diagnoses / Procedures Referred By Leonard t Referred To Contact Diagnoses ESOSINOPHILIC ESOPHAGITIS Procedures EGD Jeni Lopes MD [address] [place] [address] Phone: tel: fax: Referral ID Status Reason Start Date Expiration Date Visits Re quested Visits Authorized [id number] 1 1 Encounter Details Date Type Department Care Team (Late st Contact Info) Description 10/09/2022 1:00 PM CDT - 10/09/2022 1:30 PM CDT [facility] Periop [address] [place] [id number] Jeni Lopes MD [address] [place] [address] EGD - LINEAR FURROWS IN ESOPHAGUS, DUODENAL BULB SUPERFICIAL ULCERS (BIOPSY FORCEPS), SECOND PORTION DUODENAL BIOPSIES (BIOPSY FORCEPS), ANTRAL BIOPSY (BIOPSY FORCEPS), DISTAL ESOPHAGUS BIOPSY (BIOPSY FORCEPS) Surgery Details Date/Time Status Location OR Service Patient Class Case Class Case Type Trauma Case? 10/09/2022 1:00 PM Posted [facility] GI LAB GI 02 Gastroenterology [facility] Ambulatory Surgery Electiv e/Sched uled Panel 1 Procedure LRB Anes Op Region Wound Class Comments EGD - LINEAR FURROWS IN ESOPHAGUS, DUODENAL BULB SUPERFICIAL ULCERS (BIOPSY FORCEPS), SECOND PORTION DUODENAL BIOPSIES (BIOPSY FORCEPS), ANTRAL BIOPSY (BIOPSY FORCEPS), DISTAL ESOPHAGUS BIOPSY (BIOPSY FORCEPS) N/A Monitored Anesthesia Care Surgeon Surgeon Role Service Panel Jeni Lopes MD Primary Gastroenterology 1 Special Needs Dx EOE documented in this encounter Social History Tobacco [...] Sign Reading Time Taken Comments Blood Pressure 132/81 10/09/2022 12:26 PM CDT Pulse 64 10/09/2022 12:26 PM CDT Temperature - - Respiratory Rate 16 10/09/2022 12:26 PM CDT Oxygen Saturation 98% 10/09/2022 12:26 PM CDT Inhaled Oxygen Concentration - - Weight 100.2 kg (221 lb) 10/02/2022 11:00 AM CDT Height 172.7 cm (5' 8 ) 10/02/2022 11:00 AM CDT Body Mass Index 33.6 10/02/2022 11:00 AM CDT documented in this encounter Discharge Instructions * Discharge Instructions* Yumi Gibbons RN - 10/09/2022 1:42 PM CDT YOU [...] Check biopsies. Consider another referral to the manager client. He likely should have a relationship at the [facility]. I would recommend that he should make [...] WORK, UNLESS INSTRUCTED OTHERWISE. Call doctor's office ([phone]) or go to Emergency room for: Difficulty Breathing, Headache Or Visual Disturbances Persistent Dizziness Or Light-Headedness Persistent Nausea and Vomiting Temperature greater then 100.0 Significant abdominal pain, chest pain, or bleeding. Here at [facility] we strive to provide excellent care to [...] envelope is provided. Thank you for choosing [facility]. * Attachments The following attachments cannot be sent through Care Everywhere. * Low-FODMAP Eating Plan ([place]au[place]) documented in this encounter Medications at Time [...] enteritis. Has been treated since childhood at [facility]. Last time seen there was at age [...] ENTERITIS DIAGNOSIS MADE A CHILD IN THE [place]. RECENTLY HAS BEEN HAVING MORE NAUSEA. Post-operative [...] Check biopsies. Consider another referral to the manager client. He likely should have a relationship at the [facility]. I would recommend that he should make [...] Tanner RN - 10/02/2022 12:18 PM CDT [facility] GI TEACHING Patient Name: Lavelle Michael : 2000 [facility]#: [id number] Person Educated Patient Ready to Learn Yes [...] be allowed to accompany you to the [facility]. No children under the age of 16 will be allowed in the [facility] unless they are the patient. If the [...] to Teaching: Verbalizes Understanding Patient assessed for high school foreign language tutor during the preop interview and appropriate interventions [...] Case Report Surgical Pathology Report ? Case: [id number] ? Authorizing Provider: ??Jeni Lopes MD ? Collected: ? 10/09/2022 01:48 PM ? Ordering Location: ? [facility] ? Received: ?10/09/2022 02:12 PM ? [facility] GI ? Lab Preop/Pacu II ? Pathologist: ? King Ivy MD ? Specimens: ?? A) - Small Bowel Biopsy, DUODENAL BULB SUPERFICAL ULCERS ? B) - Small Bowel Biopsy, SECOND PORTION DOUDENAL BIOPSIES ? C) - Stomach, ANTRAL BIOPSY ? D) - Esophagus, DISTAL ESOPHAGUS BIOPSY ? 10/10/2022 8:16 AM CDT [facility] FINAL DIAGNOSIS A. DUODENAL BULB SUPERFICIAL [...] FUNGAL HYPHAE IDENTIFIED. 10/10/2022 8:16 AM CDT [facility] Comment THE BIOPSY DEMONSTRATES MARKEDLY REACTIVE BASAL CELL HYPERPLASIA WITH INCREASED EOSINOPHILS. THE EOSINOPHILS HAVE A TOP HEAVY DISTRIBUTION AND A FEW EOSINOPHILIC MICROABSCESSES ARE IDENTIFIED. THESE FEATURES ARE CONSISTENT WITH EOSINOPHILIC ESOPHAGITIS IN THE PROPER CLINICAL CONTEXT. 10/10/2022 8:16 AM CDT [facility] Pre-Operative Diagnosis EOSINOPHILIC ESOPHAGITIS 10/10/2022 8:16 AM CDT [facility] Gross Description A. DUODENAL BULB SUPERFICAL ULCERS The specimen presents in four formalin containers for gross and microscopic examination labeled with the patient's name, Lavelle Sears Part A is designated duodenal bulb superficial [...] cassette D1. KS/sb 10/10/2022 8:16 AM CDT [facility] Microscopic Description Microscopic examination was performed which supports the final diagnosis. All control tissues stained appropriately. 10/10/2022 8:16 AM CDT [facility] Tissue TISSUE SPECIMEN FROM SMALL INTESTINE [...] MD PATHOLOGY/CYTOLOGY ORDERABLES F inal Result [facility] LAB [address] [place] [address] * GI LAB IMAGING - EGD (10/09/2022 [...] 1230 (New Bag - Prov ider: Lea Sandoval RN)1326 (Continued by Anesthesia - Provider: Wellington Gallego APRN, DIRECTOR OF CHANNEL MARKETING)1417 (Stopped - Provider: Lea Sandoval RN) documented in this encounter Additional Health Concerns Assessment Noted Time PHQ-9 Depression Total Score: 0 04/07/19 21 3:00 PM CLINICAL OFFICE TECHNICIAN documented as of this encounter Care Teams Appliances Sample Maker Relationship Specialty Start Date End Date Yvette Nash MD [address] [place] [address] PCP - General Family Medicine 08/28/21 08/26/23 iRcky Zepeda DPM Podiatry 08/30/21 Lindy Frausto APRN, PHP MYSQL DEVELOPER [address] [place] [address] Nurse Practitioner Advanced Practice Nurse 07/31/22 documented as of this encounter
--- OUTSIDE RECORDS SUMMARY | 2024-03-21 22:06 | XMS_ITS | Encounter Summary ---
Author Organization [facility] Address [address] [place] [address] Phone Care Team Providers Care General Supervisor Name Role Phone Yvette Nash MD Primary Care Provider [phone] Ricky Zepeda DPM Unavailable Unavailable Lindy Frausto APRN, COMMUNITY HEALTH NURSE SUPERVISOR Unavailable Reason for Visit * Auth/Cert (Routine) Specialty Diagnoses / Procedures Referred By Contlan t Referred To Contact Diagnoses ESOSINOPHILIC ESOPHAGITIS Procedures EGD Jeni Lopes MD [address] [place] [address] Phone: tel: fax: Referral ID Status Reason Start Date Expiration Date Visits Re quested Visits Authorized [id number] 1 1 Encounter Details Date Type Department Care Team (Late st Contact Info) Description 10/09/2022 1:26 PM CDT [facility] Per[facility] [address] [place] [address] Wellington Gallego APRN, LIFE SKILLS TEACHER [address] [place] [address] Anesthesia Record Procedure Summary Procedure Name Responsible Anesthesiologist Anesthesia Start Time Anesthesia Stop Time EGD - LINEAR FURROWS IN ESOPHAGUS, DUODENAL BULB SUPERFICIAL ULCERS (BIOPSY FORCEPS), SECOND PORTION DUODENAL BIOPSIES (BIOPSY FORCEPS), ANTRAL BIOPSY (BIOPSY FORCEPS), DISTAL ESOPHAGUS BIOPSY (BIOPSY FORCEPS) Wellington Gallego, YAKELIN, LIFE SKILLS TEACHER 10/09/22 1326 10/09/22 1348 Events Date Time Event Comment 10/09/2022 1236 1326 An Start 1326 An Start Data 1326 ANASSESSCMPLT 1326 Start Supplemental O2 1326 Anesthesia Ready 1341 Stop Supplemental O2 1341 Stop Data Collection 1341 Transort to Postop 1348 Handoff to RN I completed my SBAR handoff to the receiving nurse. Last vitals BP: 132/81 Pulse: 64 Resp: 16 SpO2: 98 % 1348 An Stop Last vitals: BP : 132/81 Pulse: 64 Resp: 16 SpO2: 98 % Meds Name Total propofol 10 mg/mL 440,880 mcg lactated ringers infusion 0 mL * Agents Name Inspired CO2 (mmHg) ETCO2 (mmHg) * Blood No blood administrations on file. Lines, Drains, and Airways Type Details Placement Removal PIV-Single Lumen Placement Date: 10/09/22; Placement Time: 1230; Orientation: Posterior, Right; Location: Hand; Removal Date: 10/09/22; Removal Time: 1354 10/09/22 1230 by Lea Sandoval RN 10/09/22 1354 by Yumi Gibbons RN documented in this encounter Social History [...] PM CDT documented as of this encounter OR Notes * Anesthesia Postprocedure Evaluation - Wellington Gallego APRN, CRNA - 10/09/2022 1:50 PM CDT Patient: Lavelle Michael Procedure Summary Date: 10/09/22 Room / Location: [facility] GI LAB 02 / [facility] GI LAB MAIN Anesthesia Start: 1326 Anesthesia Stop: 1348 Procedure: EGD - LINEAR FURROWS IN ESOPHAGUS, DUODENAL BULB SUPERFICIAL ULCERS (BIOPSY FORCEPS), SECOND PORTION DUODENAL BIOPSIES (BIOPSY FORCEPS), ANTRAL BIOPSY (BIOPSY FORCEPS), DISTAL ESOPHAGUS BIOPSY (BIOPSY FORCEPS) Diagnosis: (EGD - LINEAR FURROWS IN ESOPHAGUS, DUODENAL BULB SUPERFICIAL ULCERS BIOPSY (BIOPSY FORCEPS), SECOND PORTION DUODENAL BIOPSIES (BIOPSY FORCEPS), ANTRAL BIOPSY (BIOPSY FORCEPS), DISTAL ESOPHAGUS BIOPSY (BIOPSY FORCEPS)) Surgeons: Jeni Lopes MD Responsible Provider: Wellington Gallego APRN, CRNA Anesthesia Type: MAC ASA Status: 2 Anesthesia Type: MAC Last vitals Vitals Value Taken Time BP 112/73 10/09/22 1345 Temp Pulse 75 10/09/22 1345 Resp 21 10/09/22 1345 SpO2 96 % 10/09/22 1345 Pain score: 0 Pain management: adequate Patient location during evaluation: GI Lab Patient participation: Sufficiently recovered to participate Level of consciousness: sleepy but conscious Cardiovascular status: acceptable Respiratory status: acceptable Hydration status: acceptable Comments: Vital signs on nursing flowsheet Anesthetic complications: no Airway patency: patent Nausea and Vomiting: none * Anesthesia Preprocedure Evaluation - Wellington Gallego APRN, CRNA - 10/09/2022 12:36 PM CDT Anesthesia Evaluation Procedure Information Date/Time: 10/09/22 1300 Procedure: EGD Location: [facility] GI LAB / [facility] GI LAB MAIN Surgeons: Jeni Lopes MD Patient summary reviewed and Nursing notes reviewed No history of anesthetic complications No family history of anesthesia reaction Allergies: -- Medical Adhesive Remover -- Rash -- (reported on 05/05/2012) Clear tape caused irritation; please use cloth tape. Patient allergies reviewed. Medications: Current Facility-Administered Medications: ??? lactated ringers infusion, 20 mL/hr, Intravenous, Continuous, Jeni Lopes MD, Last Rate: 20mL/hr at 10/09/22 1230, 20 mL/hr at 10/09/22 1230 Medications Prior to Admission: amitriptyline (ELAVIL) 10 MG Tablet, TAKE 1 TABLET BY MOUTH EVERY NIGHT, Disp: 90 Tablet, Rfl: 1 CREATINE PO, Take by mouth as needed., Disp: , Rfl: dicyclomine (BENTYL) 10 MG Capsule, Take 1 Capsule by mouth 2 times daily as needed for Other., Disp: 60 Capsule, Rfl: 3 fluticasone (FLOVENT HFA) 220 MCG/ACT Aerosol, Take 2 puffs by mouth daily, Disp: 12 g, Rfl: 3 MAGNESIUM PO, Take by mouth as needed., Disp: , Rfl: ondansetron (ZOFRAN) 4 MG Tablet, Take 1 Tablet by mouth every 8 hours as needed for Nausea - 1st line., Disp: 15 Tablet, Rfl: 2 pantoprazole (PROTONIX) 40 MG Tablet Delayed Response, Take 1 Tablet by mouth 2 times daily., Disp:180 Tablet, Rfl: 0 Patient medications reviewed. Airway Mallampati: II TM distance: <3 FB Neck ROM: full Dental - normal exam Pulmonary - negative ROS and normal exam breath sounds clear to auscultation Cardiovascular - negative ROS and normal exam Exercise tolerance: good Rhythm: regular Rate: normal Neuro/Psych - negative ROS GI/Hepatic/Renal (+) GERD, Endo/Other Risks, benefits, alternatives discussed with:patient. Anesthesia Plan ASA 2 MAC intravenous induction Anesthetic plan and risks discussed with Patient. Plan discussed with LIFE SKILLS TEACHER and surgeon. documented in this encounter Plan of Treatment Not on file documented as of this encounter Visit Diagnoses Not on filedocumented in this encounter Administered Medications Inactive Administered Medications - up to 3 most recent administrations Medication Order MAR Action Action Date Dose Rate Site propofol (DIPRIVAN) injection Intravenous, CONTINUOUS (in OR), Starting on Sat10/09/22 at 1329, Until Sat10/09/22 at 1348 New Bag 10/09/2022 1:29 PM CDT 400 mcg/kg/min 240.48 mL/hr documented in this encounter Additional Health Concerns Assessment Noted Time PHQ-9 Depression Total Score: 0 04/07/19 3:00 PM SUPERVISOR SHIPPING ROOM documented as of this encounter Care Teams General Supervisor Relationship Specialty Start Date End Date Yvette Nash MD [address] [place] [address] PCP - General Family Medicine 08/28/21 08/26/23 Ricky Zepeda DPM Podiatry 08/30/21 Lindy Frausto APRN, COMMUNITY HEALTH NURSE SUPERVISOR [address] [place] [address] Nurse Practitioner Advanced Practice Nurse 07/31/22 documented as of this encounter
--- OUTSIDE RECORDS SUMMARY | 2024-03-21 22:06 | XMS_ITS | Encounter Summary ---
Author Organization [facility] Address [address] [place] [address] Phone Care Team Providers Care Tax Services Professional Name Role Phone Yvette Davalos MD Primary Care Provider [phone] Ricky Zepeda DPM Unavailable Unavailable Lindy Frausto APRN, SHINE WORKER Unavailable Reason for Referral * Consult, Test & Initiate Treatment (Less Than 4 Weeks) - Closed Specialty Diagnoses / Procedures Referred By Contac t Referred To Contact Diagnoses Eosinophilic esophagitis Yvette Davalos MD [address] [place] [address] Phone: tel: fax: [facility] [address] [place] [phone] Phone: tel: fax: Referral ID Status Reason Start Date Expiration Date Visits Re quested Visits Authorized [id number] Closed 10/16/2022 1 1 Scheduling Instructions Lavelle is being referred to advertising director or other specialist in patient's insurance network for Esophageal biopsies were consistent with inflammation including possible allergic eosinophilic inflammation also. . See below for Lavelle's current medications, allergies and problem list. CURRENT MEDS: Current Outpatient Medications: amitriptyline (ELAVIL) 10 MG Tablet, TAKE 1 [...] 1 Tablet by mouth 2 times daily., Disp: 180 Tablet, Rfl: 0 No current facility-administered medications for this visit. ALLERGIES: -- Medical Adhesive Remover -- Rash -- (reported on 05/05/2012) Clear tape caused irritation; please use cloth tape. PROBLEM LIST: Patient Active Problem List: High triglycerides * Consult, Test & Initiate Treatment (Less Than 4 Weeks) - Closed Specialty Diagnoses / Procedures Referred By Leonard gonzalez Referred To Contact Diagnoses Eosinophilic esophagitis Jeni Lopes MD [address] [place] [address] Phone: tel: fax: [facility] [address] [facility] Medical Office [address] [place] [address] Phone: tel: fax: Referral ID Status Reason Start Date Expiration Date Visits Re quested Visits Authorized [id number] Closed 10/16/2022 1 1 Scheduling Instructions Lavelle is being referred to Dr. Linares at [place] or other specialist in patient's insurance network For Esophageal biopsies were consistent with inflammation including possible allergic eosinophilic inflammation also. . See below for Lavelle's current medications, allergies and problem list. CURRENT MEDS: Current Outpatient Medications: amitriptyline (ELAVIL) 10 MG Tablet, TAKE 1 [...] 1 Tablet by mouth 2 times daily., Disp: 180 Tablet, Rfl: 0 No current facility-administered medications for this visit. ALLERGIES: -- Medical Adhesive Remover -- Rash -- (reported on 05/05/2012) Clear tape caused irritation; please use cloth tape. PROBLEM LIST: Patient Active Problem List: High triglycerides Reason for Visit * Reason Onset Date Comments Results 10/16/2022 Encounter Details Date Type Department Care Team (Late st Contact Info) Description 10/16/2022 Telephone [facility] - [place] [address] [place] [address] Jeni Lopes MD [address] [place] [address] Results Social History Tobacco Use Types Packs/Day [...] as of this encounter Miscellaneous Notes * Addendum Note - Yvette Davalos MD - 10/16/2022 4:37 PM CDTAddended by: YVETTE DAVALOS on: 10/16/2022 04:37 PM Modules accepted: Orders * Addendum Note - Yariel Cook RN - 10/16/2022 4:26 PM CDTAddended by: YARIEL COOK on: 10/16/2022 04:26 PM Modules accepted: Orders * Telephone Encounter - Yariel Cook RN - 10/16/2022 3:22 PM CDT Patient is aware and verbalizes understanding. External gastro referral order placed to Dr. Linares. Referral and clinical documentation faxed to Dr. Linares's. Fax successful. Dr. Crawford, external allergy referral pended, please review and approve. Patient scheduled follow up appt with Dr. Lopes on 11/29/2022. * Telephone Encounter - Yariel Cook RN - 10/16/2022 3:14 PM CDT Left message to call back. * Telephone Encounter - Yariel Cook RN - 10/16/2022 3:13 PM CDT ----- Message from Jeni Lopes MD sent at 10/12/2022 8:45 AM CDT ----- Stomach and duodenal biopsies were consistent with inflammation Esophageal biopsies were consistent with inflammation including possible allergic eosinophilic inflammation also. Consider another referral to the advertising director. ?? He likely should have a relationship at the [facility]. I would recommend that he should make an appointment with Dr. Linares for long-term follow-up on this. ?? Most likely he will need to be started on Dupixent. ?? Follow-up in the GI clinic in 4 weeks. documented in this encounter Plan of Treatment Scheduled Referrals Name Type Priority Associated Diagnoses Order Schedule EXTERNAL GASTROENTEROLOGY REFERRAL Outpatient Referral Less Than 4 weeks Eosinophilic esophagitis Expected: 10/16/2022, Expires: 10/17/2023 documented as of this encounter Procedures Procedure Name Priority Date/Time Associated Diagnosis Comments EXTERNAL ALLERGY REFERRAL Less Than 4 weeks 01/09/2023 12:00 AM CDT Eosinophilic esophagitis documented in this encounter Results * EXTERNAL ALLERGY REFERRAL (01/09/2023 12:00 AM CDT) 01/09/2023 Yvette Davalos MD OUTPT REFERRALS EXT/INT Fin al Result SCAN documented in this encounter Visit Diagnoses Diagnosis Eosinophilic esophagitis- Primary documented in this encounter Additional Health Concerns Assessment Noted Time PHQ-9 Depression Total Score: 0 04/07/19 21 3:00 PM TESTER WAFER SUBSTRATE documented as of this encounter Care Teams Tax Services Professional Relationship Specialty Start Date End Date Yvette Davalos MD [address] [place] [address] PCP - General Family Medicine 08/28/21 08/26/23 Ricky Zepeda DPM Podiatry 08/30/21 Lindy Frausto APRN, SHINE WORKER [address] [place] [address] Nurse Practitioner Advanced Practice Nurse 07/31/22 documented as of this encounter
--- OUTSIDE RECORDS SUMMARY | 2024-03-21 22:06 | XMS_ITS | Encounter Summary ---
Author Organization [email or web address] Care Team Providers Care Bonding And Composite Fabricator Name Role Phone Yvette Nash MD Primary Care Provider [phone] Ricky Zepeda DPM Unavailable Unavailable Lindy Frausto APRN, PRODUCT SUPPORT SPECIALIST Unavailable Encounter Details Date Type Department Care Team (Latest Contact Info) Description 10/09/2022 Travel Social History Tobacco Use Types Packs/Day [...] Total Score: 0 04/07/19 21 3:00 PM TUBE WORKER documented as of this encounter Care Teams Bonding And Composite Fabricator Relationship Specialty Start Date End Date Yvette Nash MD [address] [place] [address] PCP - General Family Medicine 08/28/21 08/26/23 Ricky Zepeda DPM Podiatry 08/30/21 Lindy Frausto APRN, PRODUCT SUPPORT SPECIALIST [address] [place] [address] Nurse Practitioner Advanced Practice Nurse 07/31/22 documented as of this encounter
--- OUTSIDE RECORDS SUMMARY | 2024-03-21 22:06 | XMS_ITS | Encounter Summary ---
Author Organization [facility] Address [address] [place] [address] Phone Care Team Providers Care Rn Case Manager Hospice Name Role Phone Yvette Nash MD Primary Care Provider [phone] Ricky Zepeda DPM Unavailable Unavailable Lindy Frausto APRN, MONUMENT SETTER HELPER Unavailable Reason for Visit * Reason Onset Date Comments Medication Refill 10/04/2022 Encounter Details Date Type Department Care Team (Late st Contact Info) Description 10/04/2022 Refill [facility] - [place] [address] [place] [address] Lindy Frausto APRN, MONUMENT SETTER HELPER [address] [place] [address] Medication Refill Social History Tobacco [...] Telephone Encounter - Franck Flores CMA - 10/04/2022 12:37 PM CDT Opened in error. documented in this encounter Plan of Treatment Not on file documented as of this encounter Visit Diagnoses Not on filedocumented in this encounter Additional Health Concerns Assessment Noted Time PHQ-9 Depression Total Score: 0 04/07/19 21 3:00 PM HOT BALLER documented as of this encounter Care Teams Rn Case Manager Hospice Relationship Specialty Start Date End Date Yvette Nash MD [address] [place] [address] PCP - General Family Medicine 08/28/21 08/26/23 Ricky Zepeda DPM Podiatry 08/30/21 Lindy Frausto APRN, MONUMENT SETTER HELPER [address] [place] [address] Nurse Practitioner Advanced Practice Nurse 07/31/22 documented as of this encounter
--- OUTSIDE RECORDS SUMMARY | 2024-03-21 22:06 | XMS_ITS | Encounter Summary ---
Author Organization [facility] Address [address] [place] [address] Phone Care Team Providers Care Teacher Of Gifted Students Name Role Phone Katelyn, Ricky Acuna DPM Unavailable Unavailable Lindy Frausto APRN, SHELL TRIM TOOL SETTER Unavailable Jeni Lopes MD Unavailable [phone] Reason for Visit * Reason Onset Date Comments Medication Refill 11/18/2023 Encounter Details Date Type Department Care Team (Late st Contact Info) Description 11/18/2023 Refill [facility] - [facility] [address] [place] [address] Provider, None [place] Medication Refill Social History Tobacco Use Types [...] encounter Miscellaneous Notes * Telephone Encounter - Darshana Cordero CMA - 11/19/2023 9:47 AM CDT Fleep message was sent to patient. * Telephone Encounter - Damaris Nicolas PAC - 11/18/2023 5:00 PM CDT I can refill medication, should make appointment for annual exam in future I can continue his care * Telephone Encounter - Tita Medeiros RN - 11/18/2023 3:39 PM CDT Was a Yvette patient - has not seen her since August 2021 - has been seeing you since that time. Does he need a JOSE with you? Medication failed the protocol, provider to review and approve the medication order if appropriate. Requested Prescriptions Pending Prescriptions Disp Refills amitriptyline (ELAVIL) 10 MG Tablet 90 Tablet 1 Sig: Take 1 Tablet by mouth nightly. Not Delegated - Tricyclic Agents Protocol Failed - 11/18/2023 10:57 AM Failed - This refill cannot be delegated Passed - Visit with relevant provider in past 12 months or upcoming 90 days Recent Visits Date Type Provider Dept 05/13/23 Office Visit Damaris Nicolas PAC [facility] Showing recent visits within past 365 days and meeting all other requirements Future Appointments No visits were found meeting these conditions. Showing future appointments within next 90 days and meeting all other requirements * Telephone Encounter - Geni Huerta MA - 11/18/2023 10:56 AM CDT [facility] refill fax request no jose set up documented in this encounter Plan of Treatment Not on file documented as of this encounter Visit Diagnoses Not on filedocumented in this encounter Additional Health Concerns Assessment Noted Time PHQ-9 Depression Total Score: 0 05/13/19 24 2:44 PM ACCESS CONTROL SPECIALIST documented as of this encounter Care Teams Teacher Of Gifted Students Relationship Specialty Start Date End Date Ricky Zepeda DPM Podiatry 08/30/21 Lindy Frausto APRN, SHELL TRIM TOOL SETTER [address] [place] [address] Nurse Practitioner Advanced Practice Nurse 07/31/22 Jeni Lopes MD [address] [place] [address] Consulting Physician Gastroenterology 12/13/22 documented as of this encounter
--- OUTSIDE RECORDS SUMMARY | 2024-03-21 22:06 | XMS_ITS | Encounter Summary ---
Author Organization [facility] Address [address] [place] [address] Phone Care Team Providers Care Extension Work Instructor Name Role Phone Yvette Nash MD Primary Care Provider [phone] Ricky Zepeda DPM Unavailable Unavailable Lindy Frausto APRN, INTERVIEWING CLERK Unavailable Encounter Details Date Type Department Care Team (Late st Contact Info) Description 08/30/2022 Telephone [facility] - Gastroenterology - [place] [address] [place] [address] Jeni Lopes MD [address] [place] [address] Social History Tobacco Use Types [...] Recorded Total Score - Questions 1-9 0 0 03/2021 Education Answer Date Recorded What [...] suspected to have Coronavirus/COVID-19? No / Unsure 08/18/2022 9:14 AM CDT documented as of this encounter Miscellaneous Notes * Telephone Encounter - Franck Flores CMA - 08/30/2022 9:27 AM CDT EGD prep instructions sent to patient through [employer]. documented in this encounter Plan of Treatment Not on file documented as of this encounter Visit Diagnoses Not on filedocumented in this encounter Additional Health Concerns Assessment Noted Time PHQ-9 Depression Total Score: 0 04/07/19 21 3:00 PM REGIONAL PROJECT MANAGER documented as of this encounter Care Teams Extension Work Instructor Relationship Specialty Start Date End Date Yvette Nash MD [address] [place] [address] PCP - General Family Medicine 08/28/21 08/26/23 Ricky Zepeda DPM Podiatry 08/30/21 Lindy Frausto APRN, INTERVIEWING CLERK [address] [place] [address] Nurse Practitioner Advanced Practice Nurse 07/31/22 documented as of this encounter
--- OUTSIDE RECORDS SUMMARY | 2024-03-21 22:06 | XMS_ITS | Encounter Summary ---
Author Organization [facility] Address [address] [place] [address] Phone Care Team Providers Care Worm Picker Name Role Phone Yvette Nash MD Primary Care Provider [phone] Ricky Zepeda DPM Unavailable Unavailable Lindy Frausto APRN, STAFF DESIGN ENGINEER Unavailable Jeni Lopes MD Unavailable [phone] Reason for Referral * Radiology Services (Routine) - Closed Specialty Diagnoses / Procedures Referred By Leonard gonzalez Referred To Contact Radiology Diagnoses Nausea Procedures NM HEPATOBILIARY WITH Jeni Chavarria MD [address] [place] [address] Phone: tel: fax: Referral ID Status Reason Start Date Expiration Date Visits Re quested Visits Authorized [id number] Closed 12/13/2022 1 1 Reason for Visit * Radiology Services (Routine) - Closed Specialty Diagnoses / Procedures Referred By Leonard gonzalez Referred To Contact Radiology Diagnoses Nausea Procedures NM HEPATOBILIARY WITH Jeni Chavarria MD [address] [place] [address] Phone: tel: fax: Referral ID Status Reason Start Date Expiration Date Visits Re quested Visits Authorized [id number] Closed 12/13/2022 1 1 Encounter Details Date Type Department Care Team (Latest Contact Info) Description 01/01/2023 10:00 AM CDT - 01/01/2023 11:59 PM CDT Hospital Encounter [facility] Nuclear Medicine [address] [place] [address] Jeni Lopes MD [address] [place] [address] Discharge Disposition: Discharged to home or Selfcare [...] AM CDT documented as of this encounter Medications at [...] 07/31/2022 01/02/2023 documented as of this encounter Plan of Treatment Not on file documented as of this encounter Procedures Procedure Name Priority Date/Time Associated Diagnosis Comments NM HEPATOBILIARY WITH PHARM Routine 01/01/2023 11:58 AM CDT Nausea documented in this encounter Results * NM HEPATOBILIARY WITH [...] Electronically signed by ??Ramon Doran M.D. CH: CH D: ??01/01/2023 12:50 PM T: ??01/01/2023 12:50 PM Report ID: [id number] Reading Location: ??[id number] Procedure Note Ramon Doran Jr., MD - [...] Electronically signed by Ramon Doran M.D. CH: CH Report ID: [id number] Reading Location: [id number] IMPRESSION: 1. No evidence of cystic duct obstruction. 2. Equivocal gallbladder ejection fraction of 35%, raises the possibility of biliary dyskinesia or chronic cholecystitis. 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
--- OUTSIDE RECORDS SUMMARY | 2024-03-21 22:06 | XMS_ITS | Encounter Summary ---
Author Organization [facility] Care Team Providers Care Sales Department Manager Name Role Phone Yvette Nash MD Primary Care Provider [phone] Ricky Zepeda DPM Unavailable Unavailable Lindy Frausto APRN, WILDLAND FIRE OPERATIONS SPECIALIST Unavailable Encounter Details Date Type Department Care Team (Latest Contact Info) Description 10/02/2022 Travel Social History Tobacco Use Types Packs/Day [...] Total Score: 0 04/07/19 21 3:00 PM HOSE TENDER documented as of this encounter Care Teams Sales Department Manager Relationship Specialty Start Date End Date Yvette Nash MD [address] [place] [address] PCP - General Family Medicine 08/28/21 08/26/23 Ricky Zepeda DPM Podiatry 08/30/21 Lindy Frausto APRN, WILDLAND FIRE OPERATIONS SPECIALIST [address] [place] [address] Nurse Practitioner Advanced Practice Nurse 07/31/22 documented as of this encounter
--- OUTSIDE RECORDS SUMMARY | 2024-03-21 22:07 | XMS_ITS | Encounter Summary ---
Author Organization [facility] Address [address] [place] [address] Phone Care Team Providers Care Commercial Interior Designer Name Role Phone Damaris Nicolas PAC Primary Care Provider + Reason for Visit * Reason Onset Date Comments Appointment 06/08/2021 Encounter Details Date Type Department Care Team (Late st Contact Info) Description 06/08/2021 Telephone [facility] [address] [place] [id number] Damaris Nicolas, PAC [address] [place] [address] Appointment Social History Tobacco Use Types Packs/Day Years [...] Recorded Total Score - Questions 1-9 0 040 03/2021 Sex and Gender Information Value Date Recorded Sex Assigned at Not on file Legal Sex Male 12:25 AM CDT Gender Identity Not on file Sexual Orientation Not on file documented as of this encounter Miscellaneous Notes * Telephone Encounter - Tiffany Martin RN - 06/08/2021 10:17 AM CDT SITUATION: Patient calling in requesting to schedule an appointment for Chlamydia testing. BACKGROUND: Patient's girlfriend's doctor suggested that he be tested because she had Chlamydia in the past. ASSESSMENT: Symptom Description / Location: none RECOMMENDATION: Called office back line and spoke to MARGARET Jaime to confirm what type of appointment was needed. She states it can be a regular office visit with a provider. Appointment scheduled for 06/09 at 4:00 with SEKOU Yeager. documented in this encounter Plan of Treatment Not on file documented as of this encounter Visit Diagnoses Not on filedocumented in this encounter Additional Health Concerns Assessment Noted Time PHQ-9 Depression Total Score: 0 04/07/19 21 3:00 PM BASKETBALL COMMENTATOR documented as of this encounter Care Teams Commercial Interior Designer Relationship Specialty Start Date End Date Damaris Nicolas PAC [address] [place] [address] PCP - General Physician Nuclear Plant Technical Advisor 04/07/20 08/27/21 documented as of this encounter
--- OUTSIDE RECORDS SUMMARY | 2024-03-21 22:07 | XMS_ITS | Encounter Summary ---
Author Organization [facility] Address [address] [place] [address] Phone Care Team Providers Care Continuous Crusher Operator Name Role Phone Yvette Nash MD Primary Care Provider [phone]- [phone] Ricky Zepeda DPM Unavailable Unavailable Reason for Referral * Radiology Services (Routine) - Closed Specialty Diagnoses / Procedures Referred By Leonard gonzalez Referred To Contact Radiology Diagnoses Injury of finger of left hand, initial encounter Procedures XR FINGER(S) MIN 2 VIEWS LT Damaris Nicolas PAC [address] [place] [address] Phone: tel: fax: Referral ID Status Reason Start Date Expiration Date Visits Re quested Visits Authorized [id number] Closed 06/28/2022 1 1 Reason for Visit * Reason Comments Preventive Care Encounter Details Date Type Department Care Team (Late st Contact Info) Description 06/28/2022 2:30 PM CDT Office Visit [facility] - Family Medicine [facility] [address] [place] [id number] Damaris Nicolas PAC [address] [place] [address] Well adult exam (Primary Dx); Injury of finger of left hand, initial encounter; Screening examination for STD (sexually transmitted disease) Discharge Disposition: Discharged to home or Selfcare Social History Tobacco Use Types Packs/Day Years Used Date Smoking Tobacco: Never Smokeless Tobacco: Never Tobacco Cessation:Counseling Given: No Alcohol Use Standard Drinks/Week Comments Never 0 (1 standard drink = 0.6 oz pur e alcohol) AUDIT-C Answer Date Recorded Frequency of Alcohol Consumption Never 03/03/2019 Average Number of Drinks Not on file 019 Frequency of Binge Drinking Not on file 02/09 PHQ-2 Answer Date Recorded Total Score - Questions 1-9 0 03/2021 Sex and Gender Information Value Date Recorded Sex Assigned at Not on file Legal Sex Male 12:25 AM CDT Gender Identity Not on file Sexual Orientation Not on file COVID-19 Exposure Response Date Recorded In the last 10 days, have yo u been in contact with someone who was confirmed or suspected to have Coronavirus/COVID-19? No / Unsure 06/28/2022 2:13 PM CDT documented as of this encounter Last Filed Vital Signs Vital Sign Reading Time Taken Comments Blood Pressure 122/82 06/28/2022 2:16 PM CDT Pulse 93 06/28/2022 2:16 PM CDT Temperature 37.1 ??C (98.8 ??F) 06/28/2022 2:16 PM CD T Respiratory Rate 16 06/28/2022 2:16 PM CDT Oxygen Saturation 99% 06/28/2022 2:16 PM CDT Inhaled Oxygen Concentration - - Weight 101.6 kg (224 lb) 06/28/2022 2:16 PM CDT Height 172.7 cm (5' 8 ) 06/28/2022 2:16 PM CDT Body Mass Index 34.06 06/28/2022 2:16 PM CDT documented in this encounter Patient Instructions * Patient Instructions* Damaris Nicolas PAC - 06/28/2022 2:30 PM CDT Give number to GI office documented in this encounter Progress Notes * Theresa Sanabria CMA - 06/28/2022 2:30 PM CDT Lavelle Michael, 21 y.o., male is here for Preventive Care Medication Refills: Patient reports/denies need for medication refills. Orders Pended: no Requested Prescriptions No prescriptions requested or ordered in this encounter Home Medications Medication Sig Start Date End Date Taking? Authorizing Provider fluticasone (FLOVENT HFA) 220 MCG/ACT Aerosol Take 2 Puffs by mouth. 05/12/19 Yes Provider, MD Sparkle pantoprazole (PROTONIX) 40 MG Tablet Delayed Response Take 1 Tablet by mouth 2 times daily. 05/31/22Yes Damaris Nicolas PAC There are no discontinued medications. I have reviewed the home medication list with the patient and have reconciled discrepancies. The list is accurate to the best of my knowledge. Smoking Status: Social History Tobacco Use ??? Smoking status: Never ??? Smokeless tobacco: Never Substance Use Topics ??? Alcohol use: Never ??? Drug use: Never Smoking Cessation Counseling Given: no Health Care Maintenance: Health Maintenance Due Topic Date Due ??? Meningococcal B Immunization (1 of 2 - Risk Bexsero 2-dose series) Never done ??? Human Papillomavirus (HPV) Immunization (2 - Male 3-dose series) 11/04/2015 ??? SARS-COV-2 Immunization (3 - Booster for Marcella series) 04/06/2021 Orders Pended: no The following BPA's have been addressed with the patient today: no BPA's addressed * Damaris Nicolas PAC - 06/28/2022 2:30 PM CDT Subjective: Patient in the office today for annual exam Reviewed past medical history, he is awaiting appointment with GI for follow up on eosinophilic esophagitis protonix has helped some, less nausea but still has queasy feeling Also discussed injury to left pinky finger smashed in car door on 06/22/22, having pain, no imaging Review of Systems Constitutional: Negative for unexpected weight change. HENT: Positive for congestion. Negative for sinus pressure, sinus pain, sore throat and trouble swallowing. Eyes: Negative for visual disturbance. Respiratory: Negative for cough, chest tightness and shortness of breath. Cardiovascular: Negative for chest pain and palpitations. Gastrointestinal: Positive for diarrhea. Negative for abdominal pain, blood in stool, constipation and vomiting. [place] Endocrine: Negative for polyuria. Genitourinary: Negative for difficulty urinating and frequency. Musculoskeletal: Positive for arthralgias. Negative for back pain and neck pain. Skin: Negative for color change and rash. Allergic/Immunologic: Negative for immunocompromised state. Neurological: Positive for headaches. Negative for dizziness and light-headedness. Psychiatric/Behavioral: Positive for sleep disturbance. Negative for suicidal ideas. Sleeps 4 hour, has trouble falling asleep Once asleep out Difficult to sleep as mind starts going Objective: Physical Exam Vitals reviewed. Constitutional: Appearance: Normal appearance. He is not ill-appearing. HENT: Head: Normocephalic and atraumatic. Right Ear: Tympanic membrane normal. Left Ear: Tympanic membrane normal. Nose: Nose normal. Mouth/Throat: Mouth: Mucous membranes are moist. Eyes: General: Right eye: No discharge. Left eye: No discharge. Extraocular Movements: Extraocular movements intact. Cardiovascular: Rate and Rhythm: Normal rate and regular rhythm. Heart sounds: No murmur heard. Pulmonary: Effort: Pulmonary effort is normal. No respiratory distress. Breath sounds: Normal breath sounds. No wheezing. Abdominal: General: Bowel sounds are normal. There is no distension. Palpations: Abdomen is soft. Tenderness: There is no abdominal tenderness. Musculoskeletal: Comments: Left 5th digit tenderness to palpation distal phalanx Lymphadenopathy: Cervical: No cervical adenopathy. Skin: General: Skin is warm. Neurological: General: No focal deficit present. Mental Status: He is alert. Psychiatric: Mood and Affect: Mood normal. Assessment and Plan See Diagnoses, Orders, Follow-up, and Instructions .Diagnoses and all orders for this visit: Well adult exam - CMP (COMPREHENSIVE METABOLIC PANEL); Future - COMPLETE BLOOD COUNT (CBC) WITH DIFF; Future - LIPID PANEL; Future - THYROID STIMULATING HORMONE (TSH); Future Injury of finger of left hand, initial encounter - XR FINGER(S) MIN 2 VIEWS LT; Future Screening examination for STD (sexually transmitted disease) - HIV 1 & 2 ANTIBODY & ANTIGEN SCREEN; Future - CHLAMYDIA & GC DNA PROBE; Future - SYPHILIS IGG/IGM W/REFLEX; Future Other orders - amitriptyline (ELAVIL) 10 MG Tablet; Take 1 Tablet by mouth nightly. Screening labs as ordered for annual exam STD screening as ordered X ray left 5 th digit rule out fracture Discussed headaches and difficulty sleeping can start elavil, discussed use and possible SE, rtc in4 weeks for recheck on medication, notify if any worsening symptoms Or problems with medication documented in this encounter Plan of Treatment Not on file documented as of this encounter Results * XR FINGER(S) MIN 2 VIEWS LT (06/28/2022 3:34 PM CDT) Anatomical Region Laterality Modality UPPER EXTREMITY, Fingers N/A Digital Radiography 06/29/2022 12:3 4 PM CDT Impressions 06/29/2022 12:37 PM CDT IMPRESSION: No acute fracture. Narrative 06/29/2022 12:37 PM CDT EXAM DESCRIPTION: XR FINGER(S) MIN 2 VIEWS LT REASON FOR STUDY: Unspecified injury of left wrist, hand and finger(s), initial encounter ?? FINDINGS: Three views submitted without comparison. No acute fractures are identified. ??There is ulnar negative variance. ??The joint spaces are normal. THIS IS AN ELECTRONICALLY VERIFIED FINAL REPORT 06/29/2022 12:34 PM - Electronically signed by ??Rashi Madrid M.D. MF: RALPH D: ??06/29/2022 12:34 PM T: ??06/29/2022 12:34 PM Report ID: [id number] Reading Location: ??[id number] Procedure Note Rashi Madrid MD - 06/29/2022 EXAM DESCRIPTION: XR FINGER(S) MIN 2 VIEWS LT REASON FOR STUDY: Unspecified injury of left wrist, hand and finger(s), initial encounter FINDINGS: Three views submitted without comparison. No acute fractures are identified. There is ulnar negative variance. The joint spaces are normal. THIS IS AN ELECTRONICALLY VERIFIED FINAL REPORT 06/29/2022 12:34 PM - Electronically signed by Rashi Madrid M.D. MF: [id number] Report ID: [id number] Reading Location: [id number] IMPRESSION: No acute fracture. Damaris SAPP IMG DIAGNOSTIC ORDERABLE S Final Result * SYPHILIS IGG/IGM W/REFLEX (06/28/2022 3:26 PM CDT) Pathologist [facility] SYPHILIS IGG/IGM Nonreactive Nonreactive 06/29/2022 8:10 AM CDT [facility] Blood Venipuncture / Unknown 06/28/2022 3:26 PM CDT 06/28/2022 3:39 PM CDT Damaris SAPP IMMUNOLOGY ORDERABLES Fi nal Result Performing Organization Address City/[facility]/ZIP Co de Phone Number [facility] [address] [place] [address], [place] * HIV 1 & 2 ANTIBODY & ANTIGEN SCREEN (06/28/2022 3:26 PM CDT) Pathologist [facility] HIV 1 & 2 ANTIBODY & ANTIGEN SCREEN NON DETECTED NON DETECTED [facility] ARCH [id number] 06/28/2022 10:41 PM CDT [facility] Blood Venipuncture / Unknown 06/28/2022 3:26 PM CDT 06/28/2022 3:39 PM CDT Damaris Nicolas PAC LAB SEND OUTS Final Re sult [facility] [address] [place] [address], [place] * THYROID STIMULATING HORMONE (TSH) (06/28/2022 3:26 PM CDT) Pathologist [facility] TSH 1.560 0.270 - 4.200 mIU/L 06/28/2022 4:25 PM CDT [facility] Blood Venipuncture / Unknown 06/28/2022 3:26 PM CDT 06/28/2022 3:39 PM CDT us Damaris Thibodeauxdayronjaime PAC CHEMISTRY ORDERABLES Fin al Result [facility] [address] [place] [address] * (ABNORMAL) LIPID PANEL (06/28/2022 3:26 PM CDT) CHOLESTEROL 195 <=200 mg/dL 06/28/2022 4:25 PM CDT [facility] TRIGLYCERIDES 377(H) <150 mg/dL 06/28/2022 4:25 PM CDT [facility] HDL CHOLESTEROL 43.9 >40 mg/dL 4:25 PM CDT [facility] LDL 76 5 - 130 mg/dL 06/28/2022 4:25 PM CDT [facility] VLDL 75(H) 5 - 55 mg/dL 06/28/2022 4:25 PM CDT [facility] CHOL/HDL RATIO 4.4 0.0 - 4.4 06/28/2022 4:25 PM CDT [facility] NON-HDL CHOLESTEROL 151.1(H) <130 mg/dL 06/28/2022 4:[address] [facility] IS THE PATIENT REQUIRED TO BE FASTING? Yes 06/28/2022 4:25 PM CDT [facility] HAS THE PATIENT BEEN FASTING? Yes 06/28/2022 4:25 PM CDT [facility] Blood Venipuncture / Unknown 06/28/2022 3:26 PM CDT 06/28/2022 3:39 PM CDT Damaris Thibodeauxdayronjaime PAC CHEMISTRY ORDERABLES Fin al Result [facility] [address] [place] [address] * (ABNORMAL) CMP (COMPREHENSIVE METABOLIC PANEL) (06/28/2022 3:26 PM CDT) SODIUM 141 136 - 144 mmol/L 06/28/2022 4:[address] [facility] POTASSIUM 4.0 3.5 - 5.1 mmol/L 06/28/2022 4:25 PM CDT [facility] CHLORIDE 102 100 - 110 mmol/L 06/28/2022 4:25 PM CDT [facility] CO2, VENOUS 27 22 - 32 mmol/L 06/28/2022 4:[address] [facility] ANION GAP 16.0 8.0 - 20.0 mmol/L 06/28/2022 4:25 PM CDT [facility] GLUCOSE 95 70 - 99 mg/dL 06/28/2022 4:[address] [facility] BUN 13 6 - 20 mg/dL 06/28/2022 4:[address] [facility] CREATININE, BLOOD 1.02 0.80 - 1.30 mg/dL 06/28/2022 4:[address] [facility] BUN/CREATININE RATIO 13 12 - 20 ratio 06/28/2022 4:[address] [facility] TOTAL PROTEIN 7.5 6.0 - 8.3 g/dL 06/28/2022 4:[address] [facility] ALBUMIN 4.5 3.5 - 5.2 g/dL 06/28/2022 4:[address] [facility] Comment: The colormetric methods used for the determination of Albumin may lead to falsely elevated test results in patients suffering from renal failure or insufficiency due to interference with other proteins. A/G RATIO 1.5 1.0 - 2.0 06/28/2022 4:[address] [facility] CALCIUM 9.7 8.9 - 10.3 mg/dL 06/28/2022 4:[address] [facility] T BILI 0.5 <=1.2 mg/dL 06/28/2022 4:25 PM CDT [facility] SGOT (AST) 23 <=40 U/L 06/28/2022 4:25 PM CDT [facility] SGPT (ALT) 42(H) <=41 U/L 06/28/2022 4:25 PM CDT [facility] ALKALINE PHOSPHATASE 82 40 - 130 U/L 06/28/2022 4:25 PM CDT [facility] IS THE PATIENT REQUIRED TO BE FASTING? No 06/28/2022 4:25 PM CDT [facility] GFR, ESTIMATED >60 >=60 06/28/2022 4:25 PM CDT [facility] Comment: Creatinine Clearance is the preferred criteria for selecting drug dose adjustments in renally impaired patients. ??The GFR is provided as additional pertinent clinical information. GFR is reported in mL/min/1.73 sq m. Calculation based on the Chronic Kidney Disease Epidemiology Collaboration (CKD- EPI) equation refit without adjustment for race. GFR, EST. >60 >=60 023 4:25 PM CDT [facility] GFR, EST. NONAFRICAN >60 >=60 06/28/2022 4:[address] [facility] Blood Venipuncture / Unknown 06/28/2022 3:26 PM CDT 06/28/2022 3:39 PM CDT us Damaris Nicolas PAC CHEMISTRY ORDERABLES Fin al Result 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
--- OUTSIDE RECORDS SUMMARY | 2024-03-21 22:07 | XMS_ITS | Encounter Summary ---
Author Organization [employer] Care Team Providers Care Cook Cold Meat Name Role Phone Laine Sharp MD Primary Care Provider [phone]- [phone] Encounter Details Date Type Department Care Team (Latest Contact Info) Description 01/19/2020 Travel Social History Tobacco Use Types Packs/Day Years Used Date Smoking Tobacco: Never Smokeless Tobacco: Never Alcohol Use Standard Drinks/Week Comments Never 0 (1 standard drink = 0.6 oz pur e alcohol) AUDIT-C Answer Date Recorded Frequency of Alcohol Consumption Never 03/03/2019 Average Number of Drinks Not on file 019 Frequency of Binge Drinking Not on file 02/09 Sex and Gender Information Value Date Recorded Sex Assigned at Not on file Legal Sex Male 12:25 AM CDT Gender Identity Not on file Sexual Orientation Not on file COVID-19 Exposure Response Date Recorded In the last month, have you been in contact with someone who was confirmed or suspected to have Coronavirus / COVID-19? Yes 01/19/2020 7:02 PM DINKEY ENGINE FIRER/FIREMAN documented as of this encounter Plan of Treatment Not on file documented as of this encounter Visit Diagnoses Not on filedocumented in this encounter Care Teams Cook Cold Meat Relationship Specialty Start Date End Date Laine Sharp MD [address] [place] [address] [place] [address] PCP - General Pediatrics 03/03/19 04/06/20 documented as of this encounter
--- OUTSIDE RECORDS SUMMARY | 2024-03-21 22:07 | XMS_ITS | Encounter Summary ---
Author Organization [email or web address] Care Team Providers Care Cyber Security Architect Name Role Phone Laine Sharp MD Primary Care Provider [phone]- [phone] Encounter Details Date Type Department Care Team (Latest Contact Info) Description 04/05/2020 Travel Social History Tobacco Use Types Packs/Day [...] have Coronavirus / COVID-19? 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
--- OUTSIDE RECORDS SUMMARY | 2024-03-21 22:07 | XMS_ITS | Encounter Summary ---
Author Organization [facility] Address [address] [place] [address] Phone Care Team Providers Care Sales Engagement Manager Name Role Phone Yvette Nash MD Primary Care Provider [phone] Ricky Zepeda DPM Unavailable Unavailable Lindy Frausto APRN, ENVIRONMENTAL COMPLIANCE INSPECTOR Unavailable Encounter Details Date Type Department Care Team (Late st Contact Info) Description 08/24/2022 Telephone [facility] - Family [facility] [address] [place] [address] Yvette Nash MD [address] [place] [address] Social History Tobacco Use Types Packs/Day Years [...] encounter Miscellaneous Notes * Telephone Encounter - Rosa Elena Clements - 08/24/2022 1:59 PM CDT error documented in this encounter Plan of Treatment Not on file documented as of this encounter Visit Diagnoses Not on filedocumented in this encounter Additional Health Concerns Assessment Noted Time PHQ-9 Depression Total Score: 0 04/07/19 21 3:00 PM DRUG SAFETY DATA MANAGEMENT SPECIALIST documented as of this encounter Care Teams Sales Engagement Manager Relationship Specialty Start Date End Date Yvette Nash MD [address] [place] [address] PCP - General Family Medicine 08/28/21 08/26/23 Ricky Zepeda DPM Podiatry 08/30/21 Lindy Frausto APRN, ENVIRONMENTAL COMPLIANCE INSPECTOR [address] [place] [address] Nurse Practitioner Advanced Practice Nurse 07/31/22 documented as of this encounter
--- OUTSIDE RECORDS SUMMARY | 2024-03-21 22:07 | XMS_ITS | Encounter Summary ---
Author Organization [facility] Address [address] [place] [address] Phone Care Team Providers Care Dough Puncher Name Role Phone Damaris Nicolas Primary Care Provider + Reason for Visit * Reason Comments Sexually Transmitted Disease Screening P ossible exposure to chlamydia Encounter Details Date Type Department Care Team (Late st Contact Info) Description 06/09/2021 4:00 PM CDT Office Visit [facility] - [facility] [address] [place] [address] Damaris Nicolas PAC [address] [place] [address] Screening examination for STD (sexually transmitted disease) (Primary Dx) Discharge Disposition: Discharged to home [...] Score - Questions 1-9 0 04/0 03/2021 Sex and Gender Information Value Date Recorded Sex Assigned at Not on file Legal Sex Male 12:25 AM CDT Gender Identity Not on file Sexual Orientation Not on file COVID-19 Exposure Response Date Recorded In the last 10 days, have tyler traore been in contact with someone who was confirmed or suspected to have Coronavirus/COVID-19? No / Unsure 06/09/2021 4:24 PM CDT documented as of this encounter Last Filed Vital Signs Vital Sign Reading Time Taken Comments Blood Pressure 122/66 06/09/2021 3:51 PM CDT Pulse 80 06/09/2021 3:51 PM CDT Temperature 36.9 ??C (98.5 ??F) 06/09/2021 3:51 PM CD T Respiratory Rate 16 06/09/2021 3:51 PM CDT Oxygen Saturation 98% 06/09/2021 3:51 PM CDT Inhaled Oxygen Concentration - - Weight 89.8 kg (198 lb) 06/09/2021 3:51 PM CDT Height 172.7 cm (5' 8 ) 06/09/2021 3:51 PM CDT Body Mass Index 30.11 06/09/2021 3:51 PM CDT documented in this encounter Progress Notes * Andrew Moore, Radha - 06/09/2021 4:00 PM CDT Lavelle Michael, 20 y.o., male is here for Sexually Transmitted Disease Screening (Possible exposureto chlamydia) Medication Refills: Patient reports/denies need for medication refills. Orders Pended: no Requested Prescriptions No prescriptions requested or ordered in this encounter Home Medications Medication Sig Start Date End Date Taking? Authorizing Provider esomeprazole (NEXIUM) 20 MG CAPSULE DELAYED RELEASE Take 2 Caps by mouth daily. Patient not taking: Reported on 06/09/2021 03/03/19 Adam Bertrand APRN, ANNUAL GREENHOUSE MANAGER fluticasone (FLOVENT HFA) 220 MCG/ACT Aerosol Take 2 Puffs by mouth. 05/12/19 Yes Provider, MD Sparkle ondansetron (ZOFRAN ODT) 4 MG TABLET DISPERSIBLE Take 1 Tab by mouth every 8 hours as needed for Nausea - 1st line. Patient not taking: No sig reported 03/03/19 Adam Bertrand APRN, MERLENE There are no discontinued medications. I have reviewed the home medication list with the patient and have reconciled discrepancies. The list is accurate to the best of my knowledge. Smoking Status: Social History Tobacco Use ??? Smoking status: Never Smoker ??? Smokeless tobacco: Never Used Substance Use Topics ??? Alcohol use: Never ??? Drug use: Never Smoking Cessation Counseling Given: n/a Health Care Maintenance: Health Maintenance Due Topic Date Due ??? Meningococcal B Immunization (1 of 2 - Risk Bexsero 2-dose series) Never done ??? Human Papillomavirus (HPV) Immunization (2 - Male 3-dose series) 11/04/2015 Orders Pended: no The following BPA's have been addressed with the patient today: Depression, Fall Risk, Nutrition and Advanced Care Planning * Damaris Nicolas PAC - 06/09/2021 4:00 PM CDT Subjective: Patient denies any symptoms of chlamydia, denies recent known exposure. Would like to get tested asgirlfriend had this about 8 months ago Review of Systems Constitutional: Negative for fever. Respiratory: Negative for cough. Cardiovascular: Negative for chest pain. Genitourinary: Negative for difficulty urinating, dysuria, frequency, penile discharge and testicular pain. Objective: Physical Exam Vitals reviewed. Constitutional: Appearance: Normal appearance. He is not ill-appearing. HENT: Head: Normocephalic and atraumatic. Eyes: General: Right eye: No discharge. Left eye: No discharge. Extraocular Movements: Extraocular movements intact. Cardiovascular: Rate and Rhythm: Normal rate. Pulmonary: Effort: No respiratory distress. Neurological: Mental Status: He is alert. Psychiatric: Mood and Affect: Mood normal. Assessment and Plan See Diagnoses, Orders, Follow-up, and Instructions .Diagnoses and all orders for this visit: Screening examination for STD (sexually transmitted disease) - CHLAMYDIA & GC DNA PROBE; Future Testing ordered, will follow up when resulted Discussed testing for other infections, patient declines at this time documented in this encounter Plan of Treatment Not on file documented as of this encounter Visit Diagnoses Diagnosis Screening examination for STD (sexually transmitted disease)- Primary Screening examination for venereal disease documented in this encounter Additional Health Concerns Assessment Noted Time PHQ-9 Depression Total Score: 0 04/07/19 3:00 PM FIELD MECHANIC documented as of this encounter Care Teams Dough Puncher Relationship Specialty Start Date End Date Damaris Nicolas PAC [address] [place] [address] PCP - General Physician Equipment Analyst 04/07/20 08/27/21 documented as of this encounter
--- OUTSIDE RECORDS SUMMARY | 2024-03-21 22:07 | XMS_ITS | Encounter Summary ---
Author Organization [facility] Address [address] [place] [address] Phone Care Team Providers Care Drywall Worker Name Role Phone Yvette Nash MD Primary Care Provider [phone]- [phone] Ricky Zepeda DPM Unavailable Unavailable Encounter Details Date Type Department Care Team (Late st Contact Info) Description 10/25[facility]2021 [facility] [address] [place] [id number] Ricky Zepeda, DPM Social History Tobacco Use Types Packs/Day Years [...] suspected to have Coronavirus/COVID-19? No / Unsure 10/25/2021 3:20 PM CDT documented as of this encounter Miscellaneous Notes * Telephone Encounter - Ness Martin - 10/25/2021 3:34 PM CDT Work note documented in this encounter Plan of Treatment Not on file documented as of this encounter Visit Diagnoses Not on filedocumented in this encounter Additional Health Concerns Assessment Noted Time PHQ-9 Depression Total Score: 0 04/07/19 21 3:00 PM KENNEL TECHNICIAN documented as of this encounter Care Teams Drywall Worker Relationship Specialty Start Date End Date Yvette Nash MD [address] [place] [address] PCP - General Family Medicine 08/28/21 08/26/23 Ricky Zepeda DPM Podiatry 08/30/21 documented as of this encounter
--- OUTSIDE RECORDS SUMMARY | 2024-03-21 22:07 | XMS_ITS | Encounter Summary ---
Author Organization [facility] Care Team Providers Care Manager Crisis Name Role Phone Yvette Nash MD Primary Care Provider Ricky Zepeda DPM Unavailable Unavailable Lindy Frausto APRN, FREIGHT RATE ANALYST Unavailable Encounter Details Date Type Department Care Team (Latest Contact Info) Description 07/31/2022 Travel Social History Tobacco Use Types Packs/Day [...] Score - Questions 1-9 0 04/0 03/2021 Sexually Active Control Partners Comments Yes Female [...] suspected to have Coronavirus/COVID-19? No / Unsure 07/31/2022 1:16 PM CDT documented as of this encounter Plan of Treatment Not on file documented as of this encounter Visit Diagnoses Not on filedocumented in this encounter Additional Health Concerns Assessment Noted Time PHQ-9 Depression Total Score: 0 04/07/19 21 3:00 PM TAX TECHNICIAN documented as of this encounter Care Teams Manager Crisis Relationship Specialty Start Date End Date Yvette Nash MD [address] [place] [address] PCP - General Family Medicine 08/28/21 08/26/23 Ricky Zepeda DPM Podiatry 08/30/21 Lindy Frausto APRN, FREIGHT RATE ANALYST [address] [place] [address] Nurse Practitioner Advanced Practice Nurse 07/31/22 documented as of this encounter
--- OUTSIDE RECORDS SUMMARY | 2024-03-21 22:07 | XMS_ITS | Encounter Summary ---
Author Organization [facility] Care Team Providers Care Physician Practice Market Manager Name Role Phone Yvette Nash MD Primary Care Provider Ricky Zepeda DPM Unavailable Unavailable Encounter Details Date Type Department Care Team (Latest Contact Info) Description 05/31/2022 Travel Social History Tobacco Use Types Packs/Day [...] suspected to have Coronavirus/COVID-19? No / Unsure 05/31/2022 8:46 AM CDT documented as of this encounter Plan of Treatment Not on file documented as of this encounter Visit Diagnoses Not on filedocumented in this encounter Additional Health Concerns Assessment Noted Time PHQ-9 Depression Total Score: 0 04/07/19 21 3:00 PM REDUCER documented as of this encounter Care Teams Physician Practice Market Manager Relationship Specialty Start Date End Date Yvette Nash MD [address] [place] [address] PCP - General Family Medicine 08/28/21 08/26/23 Ricky Zepeda DPM Podiatry 08/30/21 documented as of this encounter
--- OUTSIDE RECORDS SUMMARY | 2024-03-21 22:07 | XMS_ITS | Encounter Summary ---
Author Organization [facility] Address [address] [place] [address] Phone Care Team Providers Care Shop Welder Name Role Phone Yvette Nash MD Primary Care Provider [phone] Ricky Zepeda DPM Unavailable Unavailable Reason for Referral * Consult, Test & Initiate Treatment (Routine) - Closed Specialty Diagnoses / Procedures Referred By Leonard gonzalez Referred To Contact Podiatry Diagnoses Closed displaced fracture of phalanx of toe of left foot, unspecified toe, initial encounter Yvette Nash MD [address] [place] [address] Phone: tel: fax: [facility] Podiatry [facility] [address] [place] [address] Phone: tel: fax: Referral ID Status Reason Start Date Expiration Date Visits Re quested Visits Authorized [id number] Closed 08/28/2021 1 1 Scheduling Instructions Lavelle is being referred for left foot injury. Please contact patient for scheduling questions or concerns. Reason for Visit * Reason Onset Date Comments Results 08/28/2021 Encounter Details Date Type Department Care Team (Late st Contact Info) Description 08/28/2021 Telephone [facility] - Family Medicine [facility] [address] [facility] [place] [address] Yvette Nash MD [address] [place] [address] Results Social History Tobacco Use Types Packs/Day [...] Recorded Total Score - Questions 1-9 0 /0 03/2021 Sex and Gender Information Value Date Recorded Sex Assigned at Not on file Legal Sex Male 12:25 AM CDT Gender Identity Not on file Sexual Orientation Not on file COVID-19 Exposure Response Date Recorded In the last 10 days, have yo u been in contact with someone who was confirmed or suspected to have Coronavirus/COVID-19? No / Unsure 10/11/2021 7:21 AM CDT documented as of this encounter Miscellaneous Notes * Telephone Encounter - Yvette Nash MD - 08/28/2021 2:56 PM CDT Please call podiatry office to schedule jannet * Telephone Encounter - Yeni Marcano RN - 08/28/2021 2:50 PM CDT Pended referral * Telephone Encounter - Yeni Marcano RN - 08/28/2021 2:45 PM CDT ----- Message from Yvette Nash MD sent at 08/28/2021 1:44 PM CDT ----- Avoid weight bearing, need to see inspecting engineer documented in this encounter Plan of Treatment Scheduled Referrals Name Type Priority Associated Diagnoses Orde r Schedule PODIATRY REFERRAL Outpatient Referral Routine Closed displaced fracture of phalanx of toe of left foot, unspecified toe, initial encounter Expected: 08/28/2021, Expires: 08/28/2022 documented as of this encounter Visit Diagnoses Diagnosis Closed displaced fracture of phalanx of toe of left foot, unspecified toe, initial encounter- Primary documented in this encounter Additional Health Concerns Assessment Noted Time PHQ-9 Depression Total Score: 0 04/07/19 21 3:00 PM ARTIFICIAL INSEMINATOR documented as of this encounter Care Teams Shop Welder Relationship Specialty Start Date End Date Yvette Nash MD [address] [place] [address] PCP - General Family Medicine 08/28/21 08/26/23 Ricky Zepeda DPM Podiatry 08/30/21 documented as of this encounter
--- OUTSIDE RECORDS SUMMARY | 2024-03-21 22:07 | XMS_ITS | Encounter Summary ---
Author Organization [facility] Address [address] [place] [address] Phone Care Team Providers Care Event Set Up Specialist Name Role Phone Laine Sharp MD Primary Care Provider [phone] Reason for Visit * Reason Onset Date Comments COVID-19 01/19/2020 Encounter Details Date Type Department Care Team ([facility] Contact Info) Description 01/19/2020 Nurse Triage [facility] Digital Contact Center [address] [place] [address] Laine Sharp MD [address] [place] [address] [address] COVID-19 Social History Tobacco Use Types Packs/Day Years [...] Coronavirus / COVID-19? Yes 01/19/2020 7:02 PM WIRELESS MANAGER documented as of this encounter Miscellaneous Notes * Telephone Encounter - Kathleen Garcia RN - 01/19/2020 7:02 PM CST Images from the original note were not included. Travel Screening Question Response In the last month, have you been in contact with someone who was confirmed or suspected to have Coronavirus / COVID-19? Yes Have you had a COVID-19 viral test in the last 14 days? No Do you have any of the following new or worsening symptoms? None of these Have you traveled internationally in the last month? No Travel History Travel since 12/19/19 No documented travel since 12/19/19 Is the caller new to [facility]? No Nurse to triage SITUATION: Patient calling with exposure to family member that tested positive. BACKGROUND: healthy ASSESSMENT: Symptom Description / Location: patient is healthy, exposures to father only, no symptoms currently, Pain (0-10):no pain Temp: 100.9 forehead scanner Treatment / Response: none RECOMMENDATION: See care advice and disposition for Guidelines First positive answer recorded, all responses to prior questions were negative. If symptoms increase, change, or if new symptoms develop, call back or call your HCP. Recommendations were based on caller information and are not a diagnosis. Verified and reviewed all triage information with caller. Patient request for an excuse note: (Per CDC: Employers should not require a positive COVID-19 testresult or a healthcare provider's note for employees who are sick to validate their illness, qualify for sick leave, or to return to work.) o If patient continues to request/need a return to work note, ask them to send a request via [employer] to their provider (you may need to activate a [employer] account with them). You may also route an excuse note request to the provider. Inform the patient that the provider will determine if a note will be sent and let them know that a telephone visit may be required. Caller verbalizes understanding of the above information. KATHLEEN GARCIA RN covid provider appointment scheduled . Reason for Disposition ??? [1] Symptoms of COVID-19 (e.g., cough, fever, SOB, or others) AND [2] within 14 days of EXPOSURE (close contact) with diagnosed or suspected COVID-19 patient ??? [1] COVID-19 infection suspected by caller or triager AND [2] mild symptoms (cough, fever, or others) AND [3] no complications or SOB Protocols used: CORONAVIRUS (COVID-19) [id number], CORONAVIRUS (COVID-19) DIAGNOSED OR [id number] LESS MANAGER documented in this encounter Plan of Treatment Not on file documented as of this encounter Visit Diagnoses Not on filedocumented in this encounter Care Teams Event Set Up Specialist Relationship Specialty Start Date End Date Laine Sharp MD [address] [facility] [address] [address] PCP - General Pediatrics 03/03/19 04/06/20 documented as of this encounter
--- OUTSIDE RECORDS SUMMARY | 2024-03-21 22:07 | XMS_ITS | Encounter Summary ---
Author Organization [facility] Address [address] [place] [address] Phone Care Team Providers Care Deputy City Clerk Name Role Phone Yvette Nash MD Primary Care Provider [phone]- [phone] Reason for Referral * Radiology Services (STAT with Interpretation) - Closed Specialty Diagnoses / Procedures Referred By Contac t Referred To Contact Radiology Diagnoses Foot injury, left, initial encounter Procedures XR FOOT 3 OR MORE VIEWS LEFT Yvette Nash MD [address] [place] [address] Phone: tel: fax: Referral ID Status Reason Start Date Expiration Date Visits Re quested Visits Authorized [id number] Closed 08/28/2021 1 1 Reason for Visit * Reason Comments Toe Pain Left Great Toe Foot Pain Left foot Encounter Details Date Type Department Care Team (Late st Contact Info) Description 08/28/2021 10:20 AM CDT Office Visit [facility] - Family [facility] [address] [place] [address] Yvette Nash MD [address] [place] [address] Foot injury, left, initial encounter (Primary Dx) Discharge Disposition: Discharged to home [...] suspected to have Coronavirus/COVID-19? No / Unsure 08/28/2021 10:05 AM CDT documented as of this encounter Last Filed Vital Signs Vital Sign Reading Time Taken Comments Blood Pressure 110/70 08/28/2021 10:13 AM CDT Pulse 60 08/28/2021 10:13 AM CDT Temperature 36.6 ??C (97.8 ??F) 08/28/2021 10:13 AM C DT Respiratory Rate 18 08/28/2021 10:13 AM CDT Oxygen Saturation 98% 08/28/2021 10:13 AM CDT Inhaled Oxygen Concentration - - Weight 92.8 kg (204 lb 9.6 oz) 08/28/2021 10:13 AM CDT Height 172.7 cm (5' 8 ) 08/28/2021 10:13 AM CDT Body Mass Index 31.11 08/28/2021 10:13 AM CDT documented in this encounter Progress Notes * Estefania Guerrero MA - 08/28/2021 10:20 AM CDT Lavelle Michael, 21 y.o., male is here for Toe Pain (Left Great Toe) and Foot Pain (Left foot) Medication Refills: Patient reports/denies need for medication refills. Orders Pended: no Requested Prescriptions No prescriptions requested or ordered in this encounter Home Medications Medication Sig Start Date End Date Taking? Authorizing Provider esomeprazole (NEXIUM) 20 MG CAPSULE DELAYED RELEASE Take 2 Caps by mouth daily. Patient not taking: No sig reported 03/03/19 Adam Bertrand APRN, CNP fluticasone (FLOVENT HFA) 220 MCG/ACT Aerosol Take 2 Puffs by mouth. 05/12/19 Provider, MD Sparkle ondansetron (ZOFRAN ODT) 4 MG TABLET DISPERSIBLE Take 1 Tab by mouth every 8 hours as needed for Nausea - 1st line. Patient not taking: No sig reported 03/03/19 Adam Bertrand APRN, CNP There are no discontinued medications. I have [...] have been addressed with the patient today: No BPA's at this time * Yvette Nash MD - 08/28/2021 10:20 AM CDT Left foot pain Fall 2 days ago, slipped down 8 stairs with a rug. Heel landed on one step with left big toe on theother and then fell backwards. Left big toe is swollen , bruised and painful to move Ibuprofen 400 mg twice a day, helps Rest, ice elevation have been done. O/E left big toe ronda arount MCP joint is bruised, tender and swollen. Unable to move toe much. Bruising extends to the plantar area. Pulses intact bilaterally ASSESSMENT/PLAN Diagnoses and all orders for this visit: Foot injury, left, initial encounter - XR FOOT 3 OR MORE VIEWS LEFT; Future RICE to continue. Will rule out fracture continue current meds. Yvette Nash MD documented in this encounter Plan of Treatment Not on file documented as of this encounter Results * XR FOOT 3 OR MORE VIEWS LEFT (08/28/2021 11:15 AM CDT) Anatomical Region Laterality Modality LOWER EXTREMITY, foot Left Digital Ra diography 08/28/2021 11:2 8 AM CDT Impressions 08/28/2021 11:31 AM CDT IMPRESSION: ?? Acute, minimally displaced, comminuted, intra-articular fracture of the base of the 1st proximal phalanx. Narrative 08/28/2021 11:31 AM CDT EXAM DESCRIPTION: ?? XR FOOT 3 OR MORE VIEWS LEFT REASON FOR STUDY: ?? Unspecified injury of left foot, initial encounter. ??Fell down stairs 2 days ago. ??Swelling and pain and bruising around the 1st metatarsophalangeal joint. TECHNIQUE: ?? AP, lateral and oblique ??radiographic views acquired of the left foot. COMPARISON: ?? None available FINDINGS: BONES/JOINTS: ?? There is an acute, minimally displaced, intra-articular, comminuted fracture of the base through the midshaft of the 1st proximal phalanx. ??No other acute fractures seen. ?Joint spacing and alignment appear preserved. ??Incidental note is made of an accessory os naviculare. SOFT TISSUES: ?? Unremarkable. OTHER: ?? No other significant finding. THIS IS AN ELECTRONICALLY VERIFIED FINAL REPORT 08/28/2021 11:28 AM - Electronically signed by ??Tylor Rivera M.D. BC: ARNULFO D: ??08/28/2021 11:28 AM T: ??08/28/2021 11:28 AM Report ID: [id number] Reading Location: ??[id number] Procedure Note Tylor Rivera MD - 08/28/2021 EXAM DESCRIPTION: XR FOOT 3 OR MORE VIEWS LEFT REASON FOR STUDY: Unspecified injury of left foot, initial encounter. Fell down stairs 2 days ago. Swelling and pain and bruising around the 1st metatarsophalangeal joint. TECHNIQUE: AP, lateral and oblique radiographic views acquired of the left foot. COMPARISON: None available FINDINGS: BONES/JOINTS: There is an acute, minimally displaced, intra-articular, comminuted fracture of the base through the midshaft of the 1st proximal phalanx. No other acute fractures seen. Joint spacing and alignment appear preserved. Incidental note is made of an accessory os naviculare. SOFT TISSUES: Unremarkable. OTHER: No other significant finding. THIS IS AN ELECTRONICALLY VERIFIED FINAL REPORT 08/28/2021 11:28 AM - Electronically signed by Tylor Rivera M.D. BC: ARNULFO Report ID: [id number] Reading Location: [id number] IMPRESSION: Acute, minimally displaced, comminuted, intra-articular fracture of the base of the 1st proximal phalanx. Yvette Nash MD IMG DIAGNOSTIC ORDERABLES F inal Result documented in this encounter Visit Diagnoses Diagnosis Foot injury, left, initial encounter- Primary Foot injury, left, initial encounter documented in this encounter Additional Health Concerns Assessment Noted Time PHQ-9 Depression Total Score: 0 04/07/19 21 3:00 PM RETICLE PRINTER documented as of this encounter Care Teams Deputy City Clerk Relationship Specialty Start Date End Date Yvette Nash MD [address] [place] [address] PCP - General Family Medicine 08/28/21 08/26/23 documented as of this encounter
--- OUTSIDE RECORDS SUMMARY | 2024-03-21 22:07 | XMS_ITS | Encounter Summary ---
Author Organization [facility] Address [address] [place] [address] Phone Care Team Providers Care Projection Printer Name Role Phone Yvette Nash MD Primary Care Provider [phone]- [phone] Ricky Zepeda DPM Unavailable Unavailable Encounter Details Date Type Department Care Team (Late st Contact Info) Description 08/30/2021 [facility] [address] [place] [phone] Ricky Zepeda, DPM Social History Tobacco Use [...] suspected to have Coronavirus/COVID-19? 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
--- OUTSIDE RECORDS SUMMARY | 2024-03-21 22:07 | XMS_ITS | Encounter Summary ---
Author Organization [facility] Address [address] [place] [address] Phone Care Team Providers Care Maitre D' Name Role Phone Yvette Nash MD Primary Care Provider [phone] Ricky Zepeda DPM Unavailable Unavailable Reason for Referral * Radiology Services (Routine) - Closed Specialty Diagnoses / Procedures Referred By Leonard gonzalez Referred To Contact Radiology Diagnoses Closed displaced fracture of phalanx of toe of left foot, unspecified toe, initial encounter Procedures XR FOOT 3 OR MORE VIEWS LEFT Ricky Zepeda DPM Referral ID Status Reason Start Date Expiration Date Visits Re quested Visits Authorized [id number] Closed 01/03/2022 1 1 Reason for Visit * Reason Comments follow up after xray Encounter Details Date Type Department Care Team (Late st Contact Info) Description 01/03/2022 3:00 PM CDT Office Visit [facility] - Podiatry [facility] [address] [place] [address] Ricky Zepeda DPM Closed displaced fracture of phalanx of toe of left foot, unspecified toe, initial encounter (Primary Dx); Closed displaced fracture of distal phalanx of left great toe with routine healing, subsequent encounter Discharge Disposition: Discharged to home or Selfcare [...] suspected to have Coronavirus/COVID-19? No / Unsure 01/03/2022 1:37 PM CDT documented as of this encounter Last Filed Vital Signs Vital Sign Reading Time Taken Comments Blood Pressure 116/70 01/03/2022 2:47 PM CDT Pulse 86 01/03/2022 2:47 PM CDT Temperature 36.1 ??C (97 ??F) 01/03/2022 2:47 PM CDT Respiratory Rate 18 01/03/2022 2:47 PM CDT Oxygen Saturation 96% 01/03/2022 2:47 PM CDT Inhaled Oxygen Concentration - - Weight 96.6 kg (213 lb) 01/03/2022 2:47 PM CDT Height 172.7 cm (5' 8 ) 01/03/2022 2:47 PM CDT Body Mass Index 32.39 01/03/2022 2:47 PM CDT documented in this encounter Progress Notes * Ricky Zepeda, ASUNCION - 01/03/2022 3:00 PM CDT [facility] [address] [facility], [address] [place] [address] 01/03/2022 Patient: Lavelle Michael : 2000 Subjective: Patient returns to clinic for follow-up of left big toe fracture. He has been wearing normal shoes and states that over the past week his pain has continued. He feels some aching especially early in the mornings and after periods of extended activity. Allergies Allergen Reactions ??? Medical Adhesive Remover Rash (reported on 05/05/2012) Clear tape caused irritation; please use cloth tape. Current Outpatient Medications: ??? esomeprazole (NEXIUM) 20 MG CAPSULE DELAYED RELEASE ??? fluticasone (FLOVENT HFA) 220 MCG/ACT Aerosol ??? 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 TESTICLE SURGERY N/A Objective: Physical Exam: Neurovascular status intact and unchanged from prior visits. minimal pain on palpation of the left hallux X-rays three views left foot show position maintained, increased trabeculation crossing the fracture site, stable alignment from prior x-ray. Interval healing Assessment and Plan Diagnoses and all orders for this visit: Closed displaced fracture of phalanx of toe of left foot, unspecified toe, initial encounter - XR FOOT 3 OR MORE VIEWS LEFT; Future Closed displaced fracture of distal phalanx of left great toe with routine healing, subsequent encounter At this time he may continue with normal shoe gear. I recommended that he return to clinic again inanother 6 weeks for re-evaluation. 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 We discussed injections, topical pain medications, oral pain medications, both conservative and surgical care treatment options. I prescribed Voltaren gel to be applied to the area of concern q.i.d. p.r.n. pain. He may also take Aleve or ibuprofen as needed and return to clinic in 6 weeks. Ricky Zepeda DPM documented in this encounter Plan of Treatment Not on file documented as of this encounter Results * XR FOOT 3 OR MORE VIEWS LEFT (01/03/2022 1:51 PM CDT) Anatomical Region Laterality Modality LOWER EXTREMITY, foot Left Digital Ra diography 01/05/2022 9:51 AM CDT Impressions 01/05/2022 9:54 AM CDT IMPRESSION: ?? The previously seen intra-articular fracture of the proximal phalanx of the left great toe is not as well defined indicating healing fracture. Narrative 01/05/2022 9:54 AM CDT EXAM DESCRIPTION: ?? XR FOOT 3 OR MORE VIEWS LEFT REASON FOR STUDY: Patient with fracture of the proximal phalanx of the left great toe 08/28/2021. TECHNIQUE: ?? AP, lateral and oblique ??radiographic views acquired of the left foot. COMPARISON: ?? Prior exam 10/11/2021 and 08/28/2021 FINDINGS: BONES/JOINTS: ?? The previously seen intra-articular fracture of the proximal aspect of the proximal phalanx of the left great toe is not as well defined indicating healing. ??No change in alignment or positioning. ?? SOFT TISSUES: ?? Unremarkable. OTHER: ?? No other significant finding. THIS IS AN ELECTRONICALLY VERIFIED FINAL REPORT 01/05/2022 9:51 AM - Electronically signed by ??Rashi ROJAS: BOB D: ??01/05/2022 9:51 AM T: ??01/05/2022 9:51 AM Report ID: [id number] Reading Location: ??[id number] Procedure Note Rashi Lake MD - 01/05/2022 EXAM DESCRIPTION: XR FOOT 3 OR MORE VIEWS LEFT REASON FOR STUDY: Patient with fracture of the proximal phalanx of the left great toe 08/28/2021. TECHNIQUE: AP, lateral and oblique radiographic views acquired of the left foot. COMPARISON: Prior exam 10/11/2021 and 08/28/2021 FINDINGS: BONES/JOINTS: The previously seen intra-articular fracture of the proximal aspect of the proximal phalanx of the left great toe is not as well defined indicating healing. No change in alignment or positioning. SOFT TISSUES: Unremarkable. OTHER: No other significant finding. THIS IS AN ELECTRONICALLY VERIFIED FINAL REPORT 01/05/2022 9:51 AM - Electronically signed by Rashi ROJAS Report ID: [id number] Reading Location: [id number] IMPRESSION: The previously seen intra-articular fracture of the proximal phalanx of the left great toe is not as well defined indicating healing fracture. 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
--- OUTSIDE RECORDS SUMMARY | 2024-03-21 22:07 | XMS_ITS | Encounter Summary ---
Author Organization [facility] Address [address] [place] [address] Phone Care Team Providers Care Carton And Can Supply Supervisor Name Role Phone Laine Sharp MD Primary Care Provider Encounter Details Date Type Department Care Team ([facility] Contact Info) Description 04/06/2020 Telephone [facility] [address] [place] [address] Damaris Nicolas, PAC [address] [place] [address] Social History Tobacco Use Types Packs/Day Years [...] Recorded Total Score - Questions 1-9 0 03/12 Sex and Gender Information Value Date Recorded Sex Assigned at Not on file Legal Sex Male 12:25 AM CDT Gender Identity Not on file Sexual Orientation Not on file COVID-19 Exposure Response Date Recorded In the last month, have you been in contact with someone who was confirmed or suspected to have Coronavirus / COVID-19? 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
--- OUTSIDE RECORDS SUMMARY | 2024-03-21 22:07 | XMS_ITS | Encounter Summary ---
Author Organization [facility] Address [address] [place] [address] Phone Care Team Providers Care Truck Body Repairer Name Role Phone Yvette Nash MD Primary Care Provider [phone] Ricky Zepeda DPM Unavailable Unavailable Reason for Visit * Reason Comments Foot Injury * Consult, Test & Initiate Treatment (Routine) - Closed Specialty Diagnoses / Procedures Referred By Contac t Referred To Contact Podiatry Diagnoses Closed displaced fracture of phalanx of toe of left foot, unspecified toe, initial encounter Yvette Nash MD [address] [place] [address] Phone: tel: fax: [facility] - Podiatry [facility] [address] [place] [address] Phone: tel: fax: Referral ID Status Reason Start Date Expiration Date Visits Re quested Visits Authorized [id number] Closed 08/28/2021 1 1 Encounter Details Date Type Department Care Team (Late st Contact Info) Description 08/30/2021 9:30 AM CDT Office Visit [facility] - Podiatry [facility] [address] [place] [id number] Ricky Zepeda, DPM Closed displaced fracture of phalanx of toe of left foot, unspecified toe, initial encounter (Primary Dx) Discharge Disposition: Discharged [...] Sign Reading Time Taken Comments Blood Pressure 114/68 08/30/2021 9:27 AM CDT Pulse 74 08/30/2021 9:27 AM CDT Temperature 35.8 ??C (96.4 ??F) 08/30/2021 9:27 AM CD T Respiratory Rate 18 08/30/2021 9:27 AM CDT Oxygen Saturation 98% 08/30/2021 9:27 AM CDT Inhaled Oxygen Concentration - - Weight 92.5 kg (204 lb) 08/30/2021 9:27 AM CDT Height 172.7 cm (5' 8 ) 08/30/2021 9:27 AM CDT Body Mass Index 31.02 08/30/2021 9:27 AM CDT documented in this encounter Progress Notes * Ricky Zepeda DPM - 08/30/2021 9:30 AM CDT [facility] [address] [facility], [address] [place] [address] 08/30/2021 Patient: Lavelle Michael : 2000 Subjective: Patient presents to clinic for fracture to his left big toe. He states that this past Saturday he did stub the toe coming down the stairs causing injury. He had x-rays taken which showed a fracture of the big toe. He has been nonweightbearing with crutches since then. Allergies Allergen Reactions ??? Medical Adhesive Remover [...] Procedure Laterality Date ??? TESTICLE SURGERY N/A ROS: Review of systems was negative, except as documented in HPI. Objective: Physical Exam: Constitutional: The patient is awake, alert, well developed, well nourished and well groomed. Cardiovascular: There is no edema of the lower extremities. The pedal pulses are 2+ and symmetrical. Musculoskeletal: Lower extremity muscle strength and range of motion is equal and symmetrical bilaterally. The knees are noted to be in normal alignment. Ankle alignment and range of motion is normaland foot structure is normal. Subtalar, metatarsal and metatarsal-phalangeal joint range of motion is noted to be within normal limits. The digits of both feet are in normal alignment. The gain is normal. Dermatologic: Skin has normal texture and turgur. No open ulceration. Nails 1-10 in good repair. Neurologic: The deep tendon reflexes of the lower extremities are symmetrical and are graded at 2/4. Plantar reflexes (Babinski) reveals toes are downgoing and there is no ankle clonus. Sensory testing of the lower extremities for sharp.dull sensation, position, vibration and monofilament sensationis intact. There is no evidence of posterior tibial, superficial peroneal, or sural nerve pathology. There is no evidence of intermetatarsal neuroma bilaterally. Assessment and Plan Diagnoses and all orders for this visit: Closed displaced fracture of phalanx of toe of left foot, unspecified toe, initial encounter - PODIATRY REFERRAL Today we discussed x-ray results as well as treatment options. Patient is to continue nonweightbearing with crutches to the left foot the next 2 weeks and at that time he may transition into the cam which was prescribed at today's visit remain nonweightbearing to the left forefoot begin to bear weight on the left heel only. At that time he may return to work light duty following restrictions of wearing the Cam boot during all ambulation in keeping his weight to his heel. He is to rest, ice, elevate. Tylenol or ibuprofen p.r.n. pain. Return to clinic 6 weeks for follow-up x-rays and re-evaluation. Ricky Zepeda DPM documented in this encounter Plan of Treatment Not on file documented as of this encounter Results * XR FOOT 3 OR MORE VIEWS LEFT (10/11/2021 8:03 AM CDT) Anatomical Region Laterality Modality LOWER EXTREMITY, foot Left Digital Ra diography 10/12/2021 4:35 PM CDT Impressions 10/12/2021 4:37 PM CDT IMPRESSION: ?? 1. ?? Improvement in the minimal displacement of the comminuted intra-articular fracture of the proximal phalanx of the 1st digit. Narrative 10/12/2021 4:37 PM CDT EXAM DESCRIPTION: ?? XR FOOT 3 OR MORE VIEWS LEFT REASON FOR STUDY: ?? Follow-up of toe fracture. TECHNIQUE: ?? AP, lateral and oblique ??radiographic views acquired of the left foot. COMPARISON: ?? Left foot radiographs 08/28/2021 FINDINGS: BONES/JOINTS: ?? Minimally displaced intra-articular comminuted fracture of the proximal phalanx of the 1st digit is once again seen. ??There may be less distraction. ??No significant displacement. ??No new fracture identified. ?Joint spaces are maintained. SOFT TISSUES: ?? Unremarkable. OTHER: ?? No other significant finding. THIS IS AN ELECTRONICALLY VERIFIED FINAL REPORT 10/12/2021 4:35 PM - Electronically signed by ??Amarjit Pierce M.D. LB: PADDY D: ??10/12/2021 4:35 PM T: ??10/12/2021 4:35 PM Report ID: [id number] Reading Location: ??[id number] Procedure Note Amarjit Pierce MD - 10/12/2021 EXAM DESCRIPTION: XR FOOT 3 OR MORE VIEWS LEFT REASON FOR STUDY: Follow-up of toe fracture. TECHNIQUE: AP, lateral and oblique radiographic views acquired of the left foot. COMPARISON: Left foot radiographs 08/28/2021 FINDINGS: BONES/JOINTS: Minimally displaced intra-articular comminuted fracture of the proximal phalanx of the 1st digit is once again seen. There may be less distraction. No significant displacement. No new fracture identified. Joint spaces are maintained. SOFT TISSUES: Unremarkable. OTHER: No other significant finding. THIS IS AN ELECTRONICALLY VERIFIED FINAL REPORT 10/12/2021 4:35 PM - Electronically signed by Amarjit Pierce M.D. LB: PADDY Report ID: [id number] Reading Location: [id number] IMPRESSION: 1. Improvement in the minimal displacement of the comminuted intra-articular fracture of the proximal phalanx of the 1st digit. 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
--- OUTSIDE RECORDS SUMMARY | 2024-03-21 22:07 | XMS_ITS | Encounter Summary ---
Author Organization [facility] Address [address] [place] [address] Phone Care Team Providers Care Geopolitics Teacher Name Role Phone Yvette Nash MD Primary Care Provider [phone] Reason for Referral * Radiology Services (STAT with Interpretation) - Closed Specialty Diagnoses / Procedures Referred By Odiliaac lisa Referred To Contact Radiology Diagnoses Foot injury, left, initial encounter Procedures XR FOOT 3 OR MORE VIEWS LEFT Yvette Nash MD [address] [place] [address] Phone: tel: fax: Referral ID Status Reason Start Date Expiration Date Visits Re quested Visits Authorized [id number] Closed 08/28/2021 1 1 Reason for Visit * Radiology Services (STAT with Interpretation) - Closed Specialty Diagnoses / Procedures Referred By Leonard gonzalez Referred To Contact Radiology Diagnoses Foot injury, left, initial encounter Procedures XR FOOT 3 OR MORE VIEWS LEFT Yvette Nash MD [address] [facility] [place] [address] Phone: tel: fax: Referral ID Status Reason Start Date Expiration Date Visits Re quested Visits Authorized [id number] Closed 08/28/2021 1 1 Encounter Details Date Type Department Care Team (Latest Contact Info) Description 08/28/2021 11:00 AM CDT - 08/28/2021 11:59 PM CDT Hospital Encounter [facility] [address] [facility] [phone] Yvette Nash MD [address] [place] [address] Discharge Disposition: Discharged to home or Selfcare [...] this encounter Medications at Time of Discharge esomeprazole (NEXIUM) 20 MG CAPSULE DELAYED RELEASE Take 2 Caps by mouth daily. 30 Cap 03/03/2019 05/31/2022 fluticasone (FLOVENT HFA) 220 MCG/ACT Aerosol Take 2 Puffs by mouth. 05/12/2019 07/31/2022 ondansetron (ZOFRAN ODT) 4 MG TABLET DISPERSIBLE Take 1 Tab by mouth every 8 hours as needed for Nausea - 1st line. 12 Tab 03/03/2019 05/31/2022 documented as of this encounter Plan of Treatment Not on file documented as of this encounter Procedures Procedure Name Priority Date/Time Associated Diagnosis Comments XR FOOT 3 OR MORE VIEWS LEFT Stat with Interpretation 08/28/2021 11:15 AM CDT Foot injury, left, initial encounter documented in this encounter Results * XR FOOT 3 [...] AM T: ??08/28/2021 11:28 AM Report ID: [id number] Reading Location: ??[id number] Procedure Note Tylor Rivera MD - 08/28/2021 [...] Tylor Rivera M.D. BC: ARNULFO Report ID: [id number] Reading Location: [id number] IMPRESSION: Acute, minimally displaced, comminuted, intra-articular fracture of the base of the 1st proximal phalanx. 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
--- OUTSIDE RECORDS SUMMARY | 2024-03-21 22:07 | XMS_ITS | Encounter Summary ---
Author Organization [facility] Address [address] [place] [address] Phone Care Team Providers Care Librarian School Name Role Phone Laine Sharp MD Primary Care Provider [phone]- [phone] Reason for Visit * Reason Comments COVID-19 Encounter Details Date Type Department Care Team ([facility] Contact Info) Description 01/20/2020 8:45 AM COVERING MACHINE TENDER Telemedicine [facility] Digital Contact [facility] [address] [place] [address] Jazmine Caal L, SALES AND MARKETING ASSISTANT, ROLL FORMING MACHINE SET UP MECHANIC [address] [place] [address] Cough (Primary Dx); Close exposure to COVID-19 virus Discharge Disposition: Discharged to home or Selfcare [...] Coronavirus / COVID-19? Yes 01/19/2020 7:02 PM COVERING MACHINE TENDER documented as of this encounter Progress Notes * Jazmine Caal, CAD TECHNICIAN, ROLL FORMING MACHINE SET UP MECHANIC - 01/20/2020 8:45 AM CST Images from the original note were not included. [facility] SUBJECTIVE Chief Complaint Patient presents with ??? COVID-19 HPI Lavelle Michael is a 19 y.o. male here today for a telemedicine visit. Pt has a cough for 1 day. Dadhas COVID. Sister and mother have symptoms. No heart or lung hx. No Known Allergies Past Medical History Positives Diagnosis Date ??? Eosinophilic gastroenteritis Social History Substance and Sexual Activity Alcohol Use Never ??? Frequency: Never Social History Tobacco Use Smoking Status Never Smoker Smokeless Tobacco Never Used Current Outpatient Medications on File Prior to Visit Medication Sig Dispense Refill ??? esomeprazole (NEXIUM) 20 MG CAPSULE DELAYED RELEASE Take 2 Caps by mouth daily. 30 Cap 0 ??? ondansetron (ZOFRAN ODT) 4 MG TABLET DISPERSIBLE Take 1 Tab by mouth every 8 hours as needed for Nausea - 1st line. 12 Tab 0 No current facility-administered medications on file prior to visit. There is no problem list on file for this patient. Review of Systems Chief complaint and all history documented by ancillary staff were reviewed and verified with additions or corrections as appropriate. OBJECTIVE Speaking in complete sentences. No distress or coughing noted during dialogue. Physical Exam ASSESSMENT/PLAN Education (as applicable): - Discussed further in-person evaluation including option of ED visit at this time. Pt declined further evaluation at this time. Pt would like to use conservative management and remain home. Discussed risks associated with this decision and pt voices understanding. - Patient counseled to remain at home unless symptoms get worse. If symptoms worsen, the patient was counseled to call back to their PCP office (or this triage line if no PCP) or go to ED immediatelyfor severe symptoms. - If asymptomatic and had close contact with COVID-19 positive individual(s): quarantine at home for 14 days for symptom monitoring. - If symptomatic or symptoms develop within those 14 days of quarantine, stay home until these three things have happened: - No fever for 24 hours (without the use of medicine) AND - Other symptoms have improved (ie cough, SOB) AND - at least 10 days have passed since your symptoms first appeared - Patient to push fluid intake and take Tylenol PRN for fever, body aches. - If you do not live alone: segregate yourself, use a separate bathroom if possible, sleep in a separate area, have no/limited family time, and the person with symptoms is not to prepare food for others. - Patient advised to contact employer now to report positive screen and symptoms. -For [facility] who are COVID confirmed but were not exposed at work. The MP will need a return to work note from a MD or OZIEL. These notes can be obtained preferably by PCP. However, notes can be obtained from [facility] or [facility]. If the MP is positive due to a workplace exposure, theMP should work with his or her leader to coordinate return with occupational health. - Per CDC: Employers should not require a positive COVID-19 test result or a healthcare provider's note for employees who are sick to validate their illness, qualify for sick leave, or to return to work. [facility] is not providing excuse for work notes or return to work notes at this time per CDC recommendations. Caller verbalizes understanding of the above information. Recommended disposition of Home self-care supported by the above documentation. Patient agreed withdisposition. [facility] notified that pt needs scheduled for COVID testing. They will callpt to schedule testing. Diagnoses and all orders for this visit: Cough - SARS-COV-2 BY MOLECULAR; Future Close exposure to COVID-19 virus - SARS-COV-2 BY MOLECULAR; Future Patient was assessed via telephone for a duration of 0-15 minutes. Patient verbally consented for this service to be performed. - Jazmine Caal APN, MERLENE RING MACHINE TENDER documented in this encounter Plan of Treatment Not on file documented as of this encounter Results * (ABNORMAL) SARS-COV-2 BY MOLECULAR (01/20/2020 8:53 AM COVERING MACHINE TENDER) SARSCOV2 DETECTED(A ) (Referenc e Range for this test is Not Detected) [facility] THERMOFISHER FAST DX 01/21/2020 9:19 PM COVERING MACHINE TENDER [facility] Swab NASOPHARYNGEAL STRUCTURE / Unknown Non-Phlebotomy Collection / Unknown 01/20/2020 8:53 AM COVERING MACHINE TENDER 01/20/2020 8:53 AM COVERING MACHINE TENDER Narrative [facility] - 01/21/2020 9:19 PM COVERING MACHINE TENDER Authorized Fact Sheets about this test for providers and patients are available at: https://www.fda.gov/medical-devices/jcbbdxxuj-rngkfdbesa-zfbmhnx-devices/emergen cy-us e-authorizations us Jazmine Caal SALES AND MARKETING ASSISTANT, ROLL FORMING MACHINE SET UP MECHANIC MICROBIOLOGY - GENERA L ORDERABLES Final Result [facility] [address] [place] [address], documented in this encounter Visit Diagnoses Diagnosis Cough- Primary Close exposure to COVID-19 virus documented in this encounter Additional Health Concerns Infection Onset Date Last Indicated Resolved Time COVID - 19 01/20/2020 01/20/2020 01/21/2020 9:19 PM COVERING MACHINE TENDER documented as of this encounter Care Teams Librarian School Relationship Specialty Start Date End Date Laine Sharp MD [address] [facility] [address] [address] [place] [address] PCP - General Pediatrics 03/03/19 04/06/20 documented as of this encounter
--- OUTSIDE RECORDS SUMMARY | 2024-03-21 22:07 | XMS_ITS | Encounter Summary ---
Author Organization [facility] Address [address] [place] [address] Phone Care Team Providers Care Refrigerating Oiler Name Role Phone Yvette Nash MD Primary Care Provider [phone]- [phone] Ricky Zepeda DPVernon Unavailable Unavailable Reason for Visit * Reason Comments follow up Encounter Details Date Type Department Care Team (Late st Contact Info) Description 10/25/2021 3:30 PM CDT Office Visit [facility] - Podiatry [facility] [address] [place] [address] Ricky Zepeda, DPVernon Closed displaced fracture of phalanx of toe [...] Reading Time Taken Comments Blood Pressure 118/68 10/25/2021 3:24 PM CDT Pulse 111 10/25/2021 3:24 PM CDT Temperature 36.6 ??C (97.9 ??F) 10/25/2021 3:24 PM CD T Respiratory Rate 18 10/25/2021 3:24 PM CDT Oxygen Saturation 97% 10/25/2021 3:24 PM CDT Inhaled Oxygen Concentration - - Weight 94.3 kg (208 lb) 10/25/2021 3:24 PM CDT Height 172.7 cm (5' 8 ) 10/25/2021 3:24 PM CDT Body Mass Index 31.63 10/25/2021 3:24 PM CDT documented in this encounter Progress Notes * Ricky Zepeda DPM - 10/25/2021 3:30 PM CDT [facility] [address], [address] [place] [address] 10/25/2021 Patient: Lavelle Michael : 2000 Subjective: Patient returns to clinic for follow-up of left big toe fracture. He has been wearing the Cam boot and states that over the past week his pain is really decreased to nearly nothing. Allergies Allergen Reactions ??? Medical Adhesive Remover [...] status intact and unchanged from prior visits. No current pain on palpation of the left hallux X-rays three views left foot show trabeculation crossing the fracture site, stable alignment from prior x-ray. Interval healing Assessment and Plan Diagnoses and all orders for this visit: Closed displaced fracture of phalanx of toe of left foot, unspecified toe, initial encounter At this time I recommended that patient transition from the cam boot to normal shoe gear. Return to clinic in 6 weeks at which time we will obtain follow-up x-rays. He may increase his activity gradually as tolerated. Continue to rest, ice, elevate, avoid high impact activity. Ricky Zepeda DPM documented in this encounter Plan of Treatment Not on file documented as of this encounter Visit Diagnoses Diagnosis Closed displaced fracture of phalanx of toe of left foot, unspecified toe, initial encounter- Primary documented in this encounter Additional Health Concerns Assessment Noted Time PHQ-9 Depression Total Score: 0 04/07/19 3:00 PM FRAME OPENER documented as of this encounter Care Teams Refrigerating Oiler Relationship Specialty Start Date End Date Yvette Nash MD [address] [place] [address] PCP - General Family Medicine 08/28/21 08/26/23 Ricky Zepeda DPM Podiatry 08/30/21 documented as of this encounter
--- OUTSIDE RECORDS SUMMARY | 2024-03-21 22:07 | XMS_ITS | Encounter Summary ---
Author Organization [facility] Address [address] [place] [address] Phone Care Team Providers Care Screw Machine Set Up Operator Name Role Phone Damaris Nicolas Primary Care Provider + Reason for Visit * Reason Comments Wrist Pain Right Encounter Details Date Type Department Care Team (Late st Contact Info) Description 04/07/2020 3:15 PM CASE PREPARER AND LINER Office Visit [facility] - Family [facility] [address] [place] [address] Damaris Nicolas PAC [address] [place] [address] Right wrist pain (Primary Dx) Discharge Disposition: Discharged to home [...] have Coronavirus / COVID-19? No / Unsure 04/07/2020 2:46 PM CASE PREPARER AND LINER documented as of this encounter Last Filed Vital Signs Vital Sign Reading Time Taken Comments Blood Pressure 102/68 04/07/2020 3:29 PM CASE PREPARER AND LINER Pulse 61 04/07/2020 3:29 PM CASE PREPARER AND LINER Temperature 36.9 ??C (98.4 ??F) 04/07/2020 3:29 PM CS T Respiratory Rate 18 04/07/2020 3:29 PM CASE PREPARER AND LINER Oxygen Saturation 97% 04/07/2020 3:29 PM CASE PREPARER AND LINER Inhaled Oxygen Concentration - - Weight 76.8 kg (169 lb 6.4 oz) 04/07/2020 3:29 P M CASE PREPARER AND LINER Height 170.2 cm (5' 7 ) 04/07/2020 3:29 PM CASE PREPARER AND LINER Body Mass Index 26.53 04/07/2020 3:29 PM CASE PREPARER AND LINER documented in this encounter Progress Notes * Chela Butler - 04/07/2020 3:15 PM CST Pre-Visit Planning Documentation Main reason for visit? Establish care Any other concerns or questions that should be discussed at the visit? No Recent ED Visits and Hospitalizations 03/03/19 Adam Bertrand, DIMENSIONAL ENGINEER, DRILLER HAND, FER Gastroenteritis, ED (DISCHARGE) Health Maintenance Due Topic Date Due ??? Meningococcal B Immunization (1 of 2 - Risk Bexsero 2-dose series) 07/06/2009 ??? Human Papillomavirus (HPV) Immunization (2 - Male 3-dose series) 11/04/2015 ??? Influenza Immunization (1) 11/10/2019 Orders due are pended? no Pre-Visit Planning Status: Incomplete Communication Method Used to Complete PVP: Phone Pre-Visit Planning documented on 04/06/20 10:11 AM CASE PREPARER AND LINER by Chela Butler Called to pre-visit,left msg PREPARER AND LINER * Estefania Guerrero MA - 04/07/2020 3:15 PM CST Lavelle Michael, 19 y.o., male is here for Wrist Pain (Right) Medication Refills: Patient reports/denies need for medication refills. Orders Pended: no Requested Prescriptions No prescriptions requested or ordered in this encounter Home Medications Medication Sig Start Date End Date Taking? Authorizing Provider esomeprazole (NEXIUM) 20 MG CAPSULE DELAYED RELEASE Take 2 Caps by mouth daily. 03/03/19 Yes Adam Bertrand APN, CNP fluticasone (FLOVENT HFA) 220 MCG/ACT Aerosol Take 2 Puffs by mouth. 05/12/19 Yes Provider, MD Sparkle ondansetron (ZOFRAN ODT) 4 MG TABLET DISPERSIBLE Take 1 Tab by mouth every 8 hours as needed for Nausea - 1st line. Patient not taking: Reported on 04/07/2020 03/03/19 Adam Bertrand APN, CNP There are no discontinued medications. I have reviewed the home medication list with the patient and have reconciled discrepancies. The list is accurate to the best of my knowledge. Smoking Status: Social History Tobacco Use ??? Smoking status: Never Smoker ??? Smokeless tobacco: Never Used Substance Use Topics ??? Alcohol use: Never Frequency: Never ??? Drug use: Never Smoking Cessation Counseling Given: no Health Care Maintenance: Health Maintenance Due Topic Date Due ??? Meningococcal B Immunization (1 of 2 - Risk Bexsero 2-dose series) 07/06/2009 ??? Human Papillomavirus (HPV) Immunization (2 - Male 3-dose series) 11/04/2015 ??? Influenza Immunization (1) 11/10/2019 Orders Pended: no The following BPA's have been addressed with the patient today: Flu, Depression and Fall Risk PREPARER AND LINER * Damaris Nicolas PAC - 04/07/2020 3:15 PM CST Subjective: 1 week ago right wrist pain. No injury. Works out regularly Used wrist brace seemed to help Bending 09/17. No medication taking routinely for this. Social history reviewed, non smoker No family history of rheumatological problems No other joint pain or swelling No chronic health problems Review of Systems Constitutional: Negative for chills and fever. Respiratory: Negative for cough and shortness of breath. Cardiovascular: Negative for chest pain. Musculoskeletal: Positive for arthralgias. Skin: Negative for rash. Objective: Physical Exam Vitals signs reviewed. Constitutional: Appearance: Normal appearance. He is not ill-appearing. HENT: Head: Normocephalic and atraumatic. Eyes: General: Right eye: No discharge. Left eye: No discharge. Extraocular Movements: Extraocular movements intact. Cardiovascular: Rate and Rhythm: Normal rate and regular rhythm. Heart sounds: No murmur. Pulmonary: Effort: Pulmonary effort is normal. No respiratory distress. Breath sounds: Normal breath sounds. No wheezing. Musculoskeletal: Comments: Right wrist pain with flexion. Mild pain with carlos. No tenderness to palpation. Noerythema, no edema Skin: General: Skin is warm and dry. Neurological: Mental Status: He is alert. Psychiatric: Mood and Affect: Mood normal. Assessment and Plan See Diagnoses, Orders, Follow-up, and Instructions .Diagnoses and all orders for this visit: Right wrist pain Other orders - fluticasone (FLOVENT HFA) 220 MCG/ACT Aerosol; Take 2 Puffs by mouth. Discussed wrist strain/pain. Recommend NSAIDs at routine interval. Take with food. Discussed rest. Can ice. Can continue with wrist splint. Notify if no improvements or worsening symptoms PREPARER AND LINER documented in this encounter Plan of Treatment Not on file documented as of this encounter Visit Diagnoses Diagnosis Right wrist pain- Primary Pain in joint, forearm documented in this encounter Additional Health Concerns Assessment Noted Time PHQ-9 Depression Total Score: 0 04/07/19 21 3:00 PM CASE PREPARER AND LINER documented as of this encounter Care Teams Screw Machine Set Up Operator Relationship Specialty Start Date End Date Damaris Nicolas PAC [address] [place] [address] PCP - General Physician Deburring And Tooling Machine Operator 04/07/20 08/27/21 documented as of this encounter
--- OUTSIDE RECORDS SUMMARY | 2024-03-21 22:07 | XMS_ITS | Encounter Summary ---
Author Organization [facility] Address [address] [place] [address] Phone Care Team Providers Care Newspaper Stuffer Name Role Phone Yvette Nash MD Primary Care Provider [phone]- [phone] Ricky Zepeda DPM Unavailable Unavailable Lindy Frausto APRN, ASSOCIATE ARTISTIC DIRECTOR Unavailable Reason for Visit * Reason Comments Follow-up 4 week Encounter Details Date Type Department Care Team (Late st Contact Info) Description 08/15/2022 1:30 PM CDT [facility] Visit [facility] [address] [place] [address] Damaris Nicolas, PAC [address] [place] [address] Insomnia, unspecified type (Primary Dx); Eosinophilic esophagitis; High triglycerides Discharge Disposition: Discharged to home or Selfcare [...] suspected to have Coronavirus/COVID-19? No / Unsure 08/15/2022 12:59 PM CDT documented as of this encounter Last Filed Vital Signs Vital Sign Reading Time Taken Comments Blood Pressure 124/76 08/15/2022 1:11 PM CDT Pulse 64 08/15/2022 1:11 PM CDT Temperature 37 ??C (98.6 ??F) 08/15/2022 1:11 PM CDT Respiratory Rate - - Oxygen Saturation 98% 08/15/2022 1:11 PM CDT Inhaled Oxygen Concentration - - Weight 100.2 kg (221 lb) 08/15/2022 1:11 PM CDT Height 172.7 cm (5' 8 ) 08/15/2022 1:11 PM CDT Body Mass Index 33.6 08/15/2022 1:11 PM CDT documented in this encounter Progress Notes * Theresa Sanabria, LUMA - 08/15/2022 1:30 PM CDT Lavelle Michael, 22 y.o., male is here for Follow-up (4 week ) Medication Refills: Patient reports/denies need for medication refills. Orders Pended: yes Requested Prescriptions Pending Prescriptions Disp Refills ??? pantoprazole (PROTONIX) 40 MG Tablet Delayed Response 60 Tablet 1 Sig: Take 1 Tablet by mouth 2 times daily. Home Medications Medication Sig Start Date End Date Taking? Authorizing Provider amitriptyline (ELAVIL) 10 MG Tablet Take 1 Tablet by mouth nightly. 06/28/22 Yes Damaris Nicolas PAC dicyclomine (BENTYL) 10 MG Capsule Take 1 Capsule by mouth 2 times daily as needed for Other. 07/31/22 Yes Lindy Frausto APRN, ASSOCIATE ARTISTIC DIRECTOR fluticasone (FLOVENT HFA) 220 MCG/ACT Aerosol Take 2 puffs by mouth daily 07/31/22 Yes Lindy Frausto APRN, CNP ondansetron (ZOFRAN) 4 MG Tablet Take 1 [...] Smoking status: Never ??? Smokeless tobacco: Never Vaping Use ??? Vaping Use: Never used Substance Use Topics ??? Alcohol use: Never ??? Drug use: Never Smoking Cessation Counseling Given: no Health Care Maintenance: Health Maintenance Due Topic Date Due ??? Hepatitis C Virus (HCV) Screening Never done ??? Meningococcal B Immunization (1 of 2 - Risk Bexsero 2-dose series) Never done ??? Human Papillomavirus (HPV) Immunization (2 - Male 3-dose series) 11/04/2015 ??? SARS-COV-2 Immunization (3 - Booster for Marcella series) 04/06/2021 Orders Pended: no The following BPA's have been addressed with the patient today: no BPA's addressed * Theresa Sanabria CMA - 08/15/2022 1:30 PM CDT Lavelle screened for Social Determinants of Health and screened positive for Social Integration and Stress. After discussion with patient, patient declined resources. * Damaris Nicolas PAC - 08/15/2022 1:30 PM CDT Subjective: Patient in the office today for follow up on medication Has seen GI, feeling better with protonix 2 times daily for eosinophilic esophagitis Also taking elavil to aid in sleep and prevent headaches, feels this has been helpful, some sedation upon awakening but tolerable Having no frequent headaches Sleeping better Review of Systems Constitutional: Negative for chills and fever. Respiratory: Negative for cough and shortness of breath. Cardiovascular: Negative for chest pain. Neurological: Negative for dizziness, light-headedness and headaches. Psychiatric/Behavioral: Negative for sleep disturbance and suicidal ideas. Objective: Physical Exam Vitals reviewed. Constitutional: Appearance: [...] alert. Psychiatric: Mood and Affect: Mood normal. . Lab Results Component Value Date SODIUM 141 06/28/2022 POTASSIUM 4.0 06/28/2022 CHLORIDE 102 06/28/2022 CO2VEN 27 06/28/2022 ANIONGAP 16.0 06/28/2022 GLUCOSE 95 06/28/2022 BUN 13 06/28/2022 CREATININE 1.02 06/28/2022 BCRATIO8 13 06/28/2022 TOTALPROTEIN 7.5 06/28/2022 ALBUMIN 4.5 06/28/2022 CALCIUM 9.7 06/28/2022 TBIL 0.5 06/28/2022 SGOTAST 23 06/28/2022 SGPTALT 42 (H) 06/28/2022 ALKALINEPHO 82 06/28/2022 GFRNA >60 06/28/2022 GFRA >60 06/28/2022 GFRES >60 06/28/2022 . Lab Results Component Value Date CHOLESTEROL 195 06/28/2022 TRIGLYCRIDES 377 (H) 06/28/2022 HDLCHOLESTE 43.9 06/28/2022 LDL 76 06/28/2022 . Lab Results Component Value Date TSH 1.560 06/28/2022 Assessment and Plan See Diagnoses, Orders, Follow-up, and Instructions .Diagnoses and all orders for this visit: Insomnia, unspecified type Eosinophilic esophagitis - pantoprazole (PROTONIX) 40 MG Tablet Delayed Response; Take 1 Tablet by mouth 2 times daily. High triglycerides Continue with elavil for sleep Continue with protonix as directed Discussed high triglycerides, work on dietary changes less animal fats and carbs in diet, will recheck in 6 months documented in this encounter Plan of Treatment Not on file documented as of this encounter Visit Diagnoses Diagnosis Insomnia, unspecified type- Primary Eosinophilic esophagitis High triglycerides Pure hyperglyceridemia documented in this encounter Additional Health Concerns Assessment Noted Time PHQ-9 Depression Total Score: 0 04/07/19 21 3:00 PM GROUP THERAPIST documented as of this encounter Care Teams Newspaper Stuffer Relationship Specialty Start Date End Date Yvette Nash MD [address] [place] [address] PCP - General Family Medicine 08/28/21 08/26/23 Ricky Zepeda DPM Podiatry 08/30/21 Lindy Frausto APRN, ASSOCIATE ARTISTIC DIRECTOR [address] [place] [address] Nurse Practitioner Advanced Practice Nurse 07/31/22 documented as of this encounter
--- OUTSIDE RECORDS SUMMARY | 2024-03-21 22:07 | XMS_ITS | Encounter Summary ---
Author Organization [facility] Care Team Providers Care Loader Magazine Grinder Name Role Phone Yvette Nash MD Primary Care Provider [phone]- [phone] Ricky Zepeda DPM Unavailable Unavailable Lindy Frausto APRN, DREDGE PIPE INSTALLER Unavailable Encounter Details Date Type Department Care Team (Latest Contact Info) Description 08/15/2022 Travel Social History Tobacco Use Types Packs/Day [...] Total Score: 0 04/07/19 21 3:[address]PORTER documented as of this encounter Care Teams Loader Magazine Grinder Relationship Specialty Start Date End Date Yvette Nash MD [address] [place] [address] PCP - General Family Medicine 08/28/21 08/26/23 Ricky Zepeda DPM Podiatry 08/30/21 Lindy Frausto APRN, DREDGE PIPE INSTALLER [address] [place] [address] Nurse Practitioner Advanced Practice Nurse 07/31/22 documented as of this encounter
--- OUTSIDE RECORDS SUMMARY | 2024-03-21 22:07 | XMS_ITS | Encounter Summary ---
Author Organization [facility] Address [address] [place] [address] Phone Care Team Providers Care Ensemble Member Name Role Phone Yvette Nash MD Primary Care Provider [phone] Ricky Zepeda DPM Unavailable Unavailable Lindy Frausto APRN, CNP Unavailable Reason for Referral * Radiology Services (Routine) - Closed Specialty Diagnoses / Procedures Referred By Contac t Referred To Contact Radiology Diagnoses Nausea and vomiting, unspecified vomiting type Procedures US ABDOMEN COMPLETE Lindy Frausto APRN, CNP [address] [place] [address] Phone: tel: fax: Referral ID Status Reason Start Date Expiration Date Visits Re quested Visits Authorized [id number] Closed 07/31/2022 1 1 Reason for Visit * Radiology Services (Routine) - Closed Specialty Diagnoses / Procedures Referred By Contlan gonzalez Referred To Contact Radiology Diagnoses Nausea and vomiting, unspecified vomiting type Procedures US ABDOMEN COMPLETE Lindy Frausto APRN, CNP [address] [place] [address] Phone: tel: fax: Referral ID Status Reason Start Date Expiration Date Visits Re quested Visits Authorized [id number] Closed 07/31/2022 1 1 Encounter Details Date Type Department Care Team (Late st Contact Info) Description 08/18/2022 9:20 AM CDT - 08/18/2022 11:59 PM CDT Hospital Encounter [facility] Ultrasound [address] [place] [address] Lindy Frausto APRN, HEATER FURNACE [address] [place] [address] Discharge Disposition: Discharged to home or Selfcare [...] this encounter Medications at Time of Discharge dicyclomine (BENTYL) 10 MG CapsuleIndication s:Left upper quadrant abdominal pain Take 1 Capsule by mouth 2 times daily as needed for Other. 60 Capsule 3 07/31/2022 ondansetron (ZOFRAN) 4 MG Tablet Take 1 Tablet by mouth every 8 hours as needed for Nausea - 1st line. 15 Tablet 2 08/02/2022 pantoprazole (PROTONIX) 40 MG Tablet Delayed ResponseIndicatio ns:Eosinophilic esophagitis Take 1 Tablet by mouth 2 times daily. 180 Tablet 08/15/2022 amitriptyline (ELAVIL) 10 MG Tablet Take 1 Tablet by mouth nightly. 90 Tablet 06/28/2022 10/04/2022 fluticasone (FLOVENT HFA) 220 MCG/ACT AerosolIndication s:Eosinophilic esophagitis Take 2 puffs by mouth daily 12 g 3 07/31/2022 01/02/2023 documented as of this encounter Plan of Treatment Not on file documented as of this encounter Procedures Procedure Name Priority Date/Time Associated Diagnosis Comments US ABDOMEN COMPLETE Routine 08/18/2022 9 :58 AM CDT Nausea and vomiting, unspecified vomiting type documented in this encounter Results * Liver (US Abdomen Complete (08/18/2022 9:58 AM CDT) Anatomical Region Laterality Modality Abdomen N/A Ultrasound 08/18/2022 4:28 PM CDT Impressions 08/18/2022 4:31 PM CDT IMPRESSION: Hepatic steatosis. Otherwise negative abdominal ultrasound. ?? Narrative 08/18/2022 4:31 PM CDT EXAM DESCRIPTION: ?? US ABDOMEN COMPLETE REASON FOR STUDY: Chronic left upper quadrant epigastric pain, history of gastroenteritis. TECHNIQUE: Dynamic and static images acquired of the abdomen and recorded on PACS. Additional selected color Doppler and spectral images recorded. COMPARISON: None available. FINDINGS: PANCREAS: ??Visualized portions of the pancreas are within normal limits. Portions of the pancreatic body and tail are obscured due to bowel gas. LIVER: Measures ??17.4 ??cm and is increased ??in echogenicity. There is no focal hepatic lesion. LIVER VASCULATURE: Normal directional flow of the main portal and hepatic veins. GALLBLADDER: No echogenic gallstones, gallbladder wall thickening, pericholecystic fluid, or Johns's sign. BILIARY: No intrahepatic ductal dilatation. Common duct measures ?? 0.4 ??cm. INFERIOR VENA CAVA: Unremarkable. AORTA: No abdominal aortic aneurysm. RIGHT KIDNEY: Kidney measures ??10.3 ??cm. There is normal ?? echogenicity and normal cortical thickness. There is no hydronephrosis. No cystic or solid mass. LEFT KIDNEY: Kidney measures ??10.8 ??cm. There is normal ?? echogenicity and normal cortical thickness. There is no hydronephrosis. No cystic or solid mass. SPLEEN: Measures ??11.6 ??cm with no focal lesion. PERITONEAL AND PLEURAL SPACES: No ascites or pleural effusion. OTHER: No other significant abnormality. THIS IS AN ELECTRONICALLY VERIFIED FINAL REPORT 08/18/2022 4:28 PM - Electronically signed by ??Ramon Doran M.D. CH: ALFONSO D: ??08/18/2022 4:28 PM T: ??08/18/2022 4:28 PM Report ID: [id number] Reading Location: ??[id number] Procedure Note Ramon Doran Jr., MD - 08/18/2022 EXAM DESCRIPTION: US ABDOMEN COMPLETE REASON FOR STUDY: Chronic left upper quadrant epigastric pain, history of gastroenteritis. TECHNIQUE: Dynamic and static images acquired of the abdomen and recorded on PACS. Additional selected color Doppler and spectral images recorded. COMPARISON: None available. FINDINGS: PANCREAS: Visualized portions of the pancreas are within normal limits. Portions of the pancreatic body and tail are obscured due to bowel gas. LIVER: Measures 17.4 cm and is increased in echogenicity. There is no focal hepatic lesion. LIVER VASCULATURE: Normal directional flow of the main portal and hepatic veins. GALLBLADDER: No echogenic gallstones, gallbladder wall thickening, pericholecystic fluid, or Johns's sign. BILIARY: No intrahepatic ductal dilatation. Common duct measures 0.4 cm. INFERIOR VENA CAVA: Unremarkable. AORTA: No abdominal aortic aneurysm. RIGHT KIDNEY: Kidney measures 10.3 cm. There is normal echogenicity and normal cortical thickness. There is no hydronephrosis. No cystic or solid mass. LEFT KIDNEY: Kidney measures 10.8 cm. There is normal echogenicity and normal cortical thickness. There is no hydronephrosis. No cystic or solid mass. SPLEEN: Measures 11.6 cm with no focal lesion. PERITONEAL AND PLEURAL SPACES: No ascites or pleural effusion. OTHER: No other significant abnormality. THIS IS AN ELECTRONICALLY VERIFIED FINAL REPORT 08/18/2022 4:28 PM - Electronically signed by Ramon Doran M.D. CH: ALFONSO Report ID: [id number] Reading Location: [id number] IMPRESSION: Hepatic steatosis. Otherwise negative abdominal ultrasound. us Lindy Frausto APRN, CNP IMFredy US ORDERABLES Final Result documented in this encounter Visit Diagnoses Diagnosis Nausea and vomiting, unspecified vomiting type documented in this encounter Additional Health Concerns Assessment Noted Time PHQ-9 Depression Total Score: 0 04/07/19 21 3:00 PM FAMILY AND MARRIAGE COUNSELLOR documented as of this encounter Care Teams Ensemble Member Relationship Specialty Start Date End Date Yvette Nash MD [address] [place] [address] PCP - General Family Medicine 08/28/21 08/26/23 Ricky Zepeda DPM Podiatry 08/30/21 Lindy Frausto APRN, CNP [address] [place] [address] Nurse Practitioner Advanced Practice Nurse 07/31/22 documented as of this encounter
--- OUTSIDE RECORDS SUMMARY | 2024-03-21 22:07 | XMS_ITS | Encounter Summary ---
Author Organization [employer] Care Team Providers Care Staple Shear Operator Name Role Phone Damaris Nicolas Primary Care Provider + Encounter Details Date Type Department Care Team (Latest Contact Info) Description 04/07/2020 Travel Social History Tobacco Use Types Packs/Day [...] COVID-19? No / Unsure 04/07/2020 2:46 PM DISTRIBUTION SALES MANAGER documented as of this encounter Plan of Treatment Not on file documented as of this encounter Visit Diagnoses Not on filedocumented in this encounter Additional Health Concerns Assessment Noted Time PHQ-9 Depression Total Score: 0 04/07/19 21 3:00 PM DISTRIBUTION SALES MANAGER documented as of this encounter Care Teams Staple Shear Operator Relationship Specialty Start Date End Date Damaris Nicolas PAC [address] [place] [address] PCP - General Physician Curb Supervisor 04/07/20 08/27/21 documented as of this encounter
--- OUTSIDE RECORDS SUMMARY | 2024-03-21 22:07 | XMS_ITS | Encounter Summary ---
Author Organization [employer] Care Team Providers Care Athlete Manager Name Role Phone Yvette Nash MD Primary Care Provider [phone] Encounter Details Date Type Department Care Team (Latest Contact Info) Description 08/28/2021 Travel Social History Tobacco Use Types Packs/Day [...] Score: 0 04/07/19 21 3:00 PM TAX MANAGER documented as of this encounter Care Teams Athlete Manager Relationship Specialty Start Date End Date Yvette Nash MD [address] [place] [address] PCP - General Family Medicine 08/28/21 08/26/23 documented as of this encounter
--- OUTSIDE RECORDS SUMMARY | 2024-03-21 22:07 | XMS_ITS | Encounter Summary ---
Author Organization [facility] Address [address] [place] [address] Phone Care Team Providers Care Snowboard Designer Name Role Phone Damaris Nicolas Primary Care Provider + Reason for Visit * Reason Onset Date Comments Results 06/12/2021 Encounter Details Date Type Department Care Team (Late st Contact Info) Description 06/12/2021 Telephone [facility] [address] [place] [address] Damaris Nicolas PAC [address] [place] [address] Results Social History Tobacco Use Types Packs/Day [...] Miscellaneous Notes * Telephone Encounter - Darshana Castro - 06/15/2021 3:17 PM CDT [facility] Dept calling to see if patient was treated for STD. Notified Health Dept a script was sent to pharmacy and my chart message was read by patient. * Telephone Encounter - Yeni Marcano RN - 06/12/2021 9:32 AM CDT ----- Message from SEKOU Olivas sent at 06/12/2021 8:46 AM CDT ----- Patient has chlamydia, send in doxycycline 100 mg bid x 7 days. Partner needs treated too. documented in this encounter Plan of Treatment Not on file documented as of this encounter Visit Diagnoses Not on filedocumented in this encounter Additional Health Concerns Assessment Noted Time PHQ-9 Depression Total Score: 0 04/07/19 21 3:00 PM HR SPECIALIST documented as of this encounter Care Teams Snowboard Designer Relationship Specialty Start Date End Date Damaris Nicolas PAC [address] [place] [address] PCP - General Physician Pediatric Physical Therapy Assistant 04/07/20 08/27/21 documented as of this encounter
--- OUTSIDE RECORDS SUMMARY | 2024-03-21 22:07 | XMS_ITS | Encounter Summary ---
Author Organization [facility] Address [address] [place] [address] Phone Care Team Providers Care Green Building Design Specialist Name Role Phone Yvette Nash MD Primary Care Provider [phone] Ricky Zepeda DPM Unavailable Unavailable Reason for Visit * Reason Onset Date Comments Finger Injury 06/25/2022 Encounter Details Date Type Department Care Team (Late st Contact Info) Description 06/25/2022 Nurse Triage [facility] [address] [place] [address] Yvette Nsah MD [address] [place] [address] Finger Injury Social History Tobacco Use Types Packs/Day Years [...] encounter Miscellaneous Notes * Telephone Encounter - Ladonna Christensen RN - 06/25/2022 4:02 PM CDT SITUATION: Lt 5th finger injury BACKGROUND: Saturday ASSESSMENT: Symptom Description / Location: slammed his left little finger in a car door Saturday night - tip feels a little numb - limited ROM - smashed right behind the nail. Has a laceration on the top of his finger. Pain (0-10): 7-8/10 Temp: none Treatment / Response: asking to come in to the office instead of ED- is this ok? RECOMMENDATION: See care advice and disposition for Guideline First positive answer recorded, all responses to prior questions were negative. If symptoms increase, change or if new symptoms develop, call your HCP or call back. Recommendations were based on caller information and is not a diagnosis. Verified and reviewed all triage information with caller. Reason for Disposition ??? Cut with numbness (loss of sensation) of finger Protocols used: FINGER INJURY-A-OH * Telephone Encounter - Raisa Mcdonnell - 06/25/2022 4:00 PM CDT Symptom: Finger Injury Outcome: Transfer to grommet man queue Reason: Finger looks blue, purple, white, allen The caller accepted this outcome Caller denied: * Can't stop the bleeding documented in this encounter Plan of Treatment Not on file documented as of this encounter Visit Diagnoses Not on filedocumented in this encounter Additional Health Concerns Assessment Noted Time PHQ-9 Depression Total Score: 0 04/07/19 21 3:00 PM PASTEURIZER HELPER documented as of this encounter Care Teams Green Building Design Specialist Relationship Specialty Start Date End Date Yvette Nash MD [address] [place] [address] PCP - General Family Medicine 08/28/21 08/26/23 Ricky Zepeda DPM Podiatry 08/30/21 documented as of this encounter
--- OUTSIDE RECORDS SUMMARY | 2024-03-21 22:07 | XMS_ITS | Encounter Summary ---
Author Organization [employer] Care Team Providers Care Clinical Social Worker Name Role Phone Yvette Nash MD Primary Care Provider Ricky Zepeda DPM Unavailable Unavailable Encounter Details Date Type Department Care Team (Latest Contact Info) Description 10/11/2021 Travel Social History Tobacco Use Types Packs/Day [...] Total Score: 0 04/07/19 21 3:00 PM PRESIDENT FINANCE COMPANY documented as of this encounter Care Teams Clinical Social Worker Relationship Specialty Start Date End Date Yvette Nash MD [address] [place] [address] PCP - General Family Medicine 08/28/21 08/26/23 Ricky Zepeda DPM Podiatry 08/30/21 documented as of this encounter
--- OUTSIDE RECORDS SUMMARY | 2024-03-21 22:07 | XMS_ITS | Encounter Summary ---
Author Organization [facility] Address [address] [place] [address] Phone Care Team Providers Care Director Of Physical Security Name Role Phone Yvette Nash MD Primary Care Provider [phone] Ricky Zepeda DPM Unavailable Unavailable Encounter Details Date Type Department Care Team (Late st Contact Info) Description 09/15/2021 [facility] [address] [place] [id number] Ricky Zepeda, DPM Social History Tobacco Use [...] encounter Miscellaneous Notes * Telephone Encounter - Ashlie Estes RN - 09/15/2021 8:33 AM CDT Letter for return to work restrictions documented in this encounter Plan of Treatment Not on file documented as of this encounter Visit Diagnoses Not on filedocumented in this encounter Additional Health Concerns Assessment Noted Time PHQ-9 Depression Total Score: 0 04/07/19 21 3:00 PM VESSEL TRAFFIC OFFICER documented as of this encounter Care Teams Director Of Physical Security Relationship Specialty Start Date End Date Yvette Nash MD [address] [place] [id number] PCP - General Family Medicine 08/28/21 08/26/23 Ricky Zepeda DPM Podiatry 08/30/21 documented as of this encounter
--- OUTSIDE RECORDS SUMMARY | 2024-03-21 22:07 | XMS_ITS | Encounter Summary ---
Author Organization [facility] Address [address] [place] [address] Phone Care Team Providers Care Fashion Supervisor Name Role Phone Yvette Nash MD Primary Care Provider Ricky Zepeda DPVernon Unavailable Unavailable Encounter Details Date Type Department Care Team (Latest Contact Info) Description 10/11/2021 7:26 AM CDT - 10/11/2021 11:59 PM CDT Hospital Encounter [facility] Diagnostic Radiology [address] [place] [address] Ricky Zepeda, DPM Discharge Disposition: Discharged to home or Selfcare [...] XR FOOT 3 OR MORE VIEWS LEFT Routine 10/11/2021 8:03 AM CDT Closed displaced fracture of phalanx of toe of left foot, unspecified toe, initial encounter documented in this encounter Results [...] Electronically signed by ??Amarjit Pierce M.D. LB: LB D: ??10/12/2021 4:35 PM T: ??10/12/2021 4:35 PM Report ID: [id number] Reading Location: ??[id number] Procedure Note Amarjit Pierce MD - 10/12/2021 [...] Amarjit Pierce M.D. LB: PADDY Report ID: [id number] Reading Location: [id number] IMPRESSION: 1. Improvement in the minimal displacement [...] Total Score: 0 04/07/19 21 3:00 PM STAFF ANTISUBMARINE OFFICER documented as of this encounter Care Teams Fashion Supervisor Relationship Specialty Start Date End Date Yvette Nash MD [address] [place] [address] PCP - General Family Medicine 08/28/21 08/26/23 Ricky Zepeda DPM Podiatry 08/30/21 documented as of this encounter
--- OUTSIDE RECORDS SUMMARY | 2024-03-21 22:07 | XMS_ITS | Encounter Summary ---
Author Organization [employer] Care Team Providers Care Aerial Hurricane Hunter Name Role Phone Yvette Nash MD Primary Care Provider [phone] Ricky Zepeda DPM Unavailable Unavailable Encounter Details Date Type Department Care Team (Latest Contact Info) Description 08/30/2021 Travel Social History Tobacco Use Types Packs/Day [...] Total Score: 0 04/07/19 21 3:00 PM SYSTEMS INTEGRATION ANALYST documented as of this encounter Care Teams Aerial Hurricane Hunter Relationship Specialty Start Date End Date Yvette Nash MD [address] [place] [address] PCP - General Family Medicine 08/28/21 08/26/23 Ricky Zepeda DPM Podiatry 08/30/21 documented as of this encounter
--- OUTSIDE RECORDS SUMMARY | 2024-03-21 22:07 | XMS_ITS | Encounter Summary ---
Author Organization [facility] Address [address] [place] [address] Phone Care Team Providers Care Corporate Travel Expert Name Role Phone Yvette Nash MD Primary Care Provider [phone] Ricky Zepeda DPM Unavailable Unavailable Reason for Referral * Consult, Test & Initiate Treatment (Routine) - Closed Specialty Diagnoses / Procedures Referred By Leonard gonzalez Referred To Contact Gastroenterology Diagnoses Eosinophilic esophagitis Damaris Nicolas PAC [address] [place] [address] Phone: tel: fax: [facility] Gastroenterology [facility] [address] [place] [address] Phone: tel: fax: Referral ID Status Reason Start Date Expiration Date Visits Re quested Visits Authorized [id number] Closed 05/31/2022 1 1 Scheduling Instructions Lavelle is being referred for eosinophilic gastroenteritis Please contact patient for scheduling questions or concerns. Reason for Visit * Reason Comments Other Eosinophilic problem Referral Needs GI referral Encounter Details Date Type Department Care Team ([facility] Contact Info) Description 05/31/2022 9:00 AM CDT Office Visit [facility] - Family Medicine [facility] [address] [place] [address] Damaris Nicolas, PAC [address] [place] [address] Eosinophilic esophagitis (Primary Dx) Discharge Disposition: Discharged to home [...] Sign Reading Time Taken Comments Blood Pressure 118/72 05/31/2022 9:00 AM CDT Pulse 68 05/31/2022 9:00 AM CDT Temperature 36.6 ??C (97.8 ??F) 05/31/2022 9:00 AM CD T Respiratory Rate 16 05/31/2022 9:00 AM CDT Oxygen Saturation 97% 05/31/2022 9:00 AM CDT Inhaled Oxygen Concentration - - Weight 101.1 kg (222 lb 12.8 oz) 05/31/2022 9:00 AM CDT Height 172.7 cm (5' 8 ) 05/31/2022 9:00 AM CDT Body Mass Index 33.88 05/31/2022 9:00 AM CDT documented in this encounter Progress Notes * Eliza Morley - 05/31/2022 9:00 AM CDT Lavelle Michael, 21 y.o., male is here for Other (Eosinophilic problem) and Referral (Needs GI referral) Medication Refills: Patient reports/denies need for medication refills. Orders Pended: no Requested Prescriptions No prescriptions requested or ordered in this encounter Home Medications Medication Sig Start Date End Date Taking? Authorizing Provider esomeprazole (NEXIUM) 20 MG CAPSULE DELAYED RELEASE Take 2 Caps by mouth daily. 03/03/19 Adam Bertrand APRN, SYNTHETIC FILAMENT EXTRUDER fluticasone (FLOVENT HFA) 220 MCG/ACT Aerosol Take 2 Puffs by mouth. 05/12/19 Provider, MD [facility] ondansetron (ZOFRAN ODT) 4 MG TABLET DISPERSIBLE Take 1 Tab by mouth every 8 hours as needed for Nausea - 1st line. 03/03/19 Adam Bertrand APRN, MERLENE There are [...] (3 - Booster for Marcella series) 04/06/2021 ??? Influenza Immunization (1) 11/09/2021 Orders Pended: no The following BPA's have been addressed with the patient today: Depression * Damaris Nicolas PAC - 05/31/2022 9:00 AM CDT Subjective: Patient in the office today for nausea and few episodes of vomiting, started this last week Discussed he has history of eosinophilic esophagitis used to take flovent for treatment Had been doing well till recently Also has been having mild diarrhea No blood in emesis or stool Review of Systems Constitutional: Negative for chills and fever. Respiratory: Negative for cough and shortness of breath. Cardiovascular: Negative for chest pain. Gastrointestinal: Positive for abdominal pain, diarrhea and nausea. Negative for blood in stool andconstipation. Genitourinary: Negative for dysuria. Neurological: Negative for dizziness. Objective: Physical Exam Vitals reviewed. Constitutional: Appearance: Normal appearance. He is not ill-appearing. HENT: Head: Normocephalic and atraumatic. Eyes: General: Right eye: No discharge. Left eye: No discharge. Extraocular Movements: Extraocular movements intact. Cardiovascular: Rate and Rhythm: Normal rate and regular rhythm. Heart sounds: No murmur heard. Pulmonary: Effort: Pulmonary effort is normal. No respiratory distress. Breath sounds: Normal breath sounds. Abdominal: General: Bowel sounds are normal. There is no distension. Palpations: Abdomen is soft. Neurological: Mental Status: He is alert. Psychiatric: Mood and Affect: Mood normal. Assessment and Plan See Diagnoses, Orders, Follow-up, and Instructions .Diagnoses and all orders for this visit: Eosinophilic esophagitis - pantoprazole (PROTONIX) 40 MG Tablet Delayed Response; Take 1 Tablet by mouth 2 times daily. - GASTROENTEROLOGY REFERRAL; Future Reviewed recommendation can use high dose ppi for eosinophilic esophagitis, will start protonix, referred to GI as used to be seen with pediatric practice needs to establish care with new GI Can resume flovent, states he does not need refilled documented in this encounter Plan of Treatment Scheduled Referrals Name Type Priority Associated Diagnoses Order Schedule GASTROENTEROLOGY REFERRAL Outpatient Referral Routine Eosinophilic esophagitis Expected: 05/31/2022, Expires: 06/01/2023 documented as of this encounter Visit Diagnoses Diagnosis Eosinophilic esophagitis- Primary documented in this encounter Additional Health Concerns Assessment Noted Time PHQ-9 Depression Total Score: 0 04/07/19 21 3:00 PM MECHANICAL ASSEMBLY TECHNICIAN documented as of this encounter Care Teams Corporate Travel Expert Relationship Specialty Start Date End Date Yvette Nash MD [address] [place] [address] PCP - General Family Medicine 08/28/21 08/26/23 Ricky Zepeda DPM Podiatry 08/30/21 documented as of this encounter
--- OUTSIDE RECORDS SUMMARY | 2024-03-21 22:07 | XMS_ITS | Encounter Summary ---
Author Organization [facility] Address [address] [place] [address] Phone Care Team Providers Care Windows Admin Name Role Phone Yvette Nash MD Primary Care Provider +1- [phone] Ricky Zepeda DPM Unavailable Unavailable Reason for [...] Expiration Date Visits Re quested Visits Authorized [id number] Closed 01/03/2022 1 1 Reason for Visit * Radiology Services (Routine) - Closed Specialty Diagnoses / Procedures Referred By Leonard gonzalez Referred To Contact Radiology Diagnoses Closed displaced fracture of phalanx of toe of left foot, unspecified toe, initial encounter Procedures XR FOOT 3 OR MORE VIEWS LEFT Ricky Zepeda DPM Referral ID Status Reason Start Date Expiration Date Visits Re quested Visits Authorized [id number] Closed 01/03/2022 1 1 Encounter Details Date Type Department Care Team (Latest Contact Info) Description 01/03/2022 1:41 PM CDT - 01/03/2022 11:59 PM CDT Hospital Encounter [facility] Diagnostic Radiology [address] [place] [address] Ricky Zepeda DPM Discharge Disposition: Discharged to home or [...] PM CDT documented as of this encounter Medications at Time of Discharge Diclofenac Sodium (Voltaren) 1 % Gel Apply 2 g 4 times daily for 30 days. 100 g 5 01/03/2022 02/02/2022 esomeprazole (NEXIUM) 20 MG CAPSULE DELAYED RELEASE [...] FOOT 3 OR MORE VIEWS LEFT Routine 01/03/2022 1:51 PM CDT Closed displaced fracture of phalanx of [...] 9:51 AM - Electronically signed by ??Rashi Lake M.D. MJ: BOB D: ??01/05/2022 9:51 AM T: ??01/05/2022 9:51 AM Report ID: [id number] Reading Location: ??[id number] Procedure Note Rashi Lake MD - 01/05/2022 [...] 9:51 AM - Electronically signed by Rashi Lake M.D. MJ: BOB Report ID: [id number] Reading Location: [id number] IMPRESSION: The previously seen intra-articular fracture of [...] Total Score: 0 04/07/19 21 3:00 PM LITHOPLATE MAKER documented as of this encounter Care Teams Windows Admin Relationship Specialty Start Date End Date Yvette Nash MD [address] [place] [address] PCP - General Family Medicine 08/28/21 08/26/23 Ricky Zepeda DPM Podiatry 08/30/21 documented as of this encounter
--- OUTSIDE RECORDS SUMMARY | 2024-03-21 22:07 | XMS_ITS | Encounter Summary ---
Author Organization [employer] Care Team Providers Care Sailing Master Name Role Phone Damaris Nicolas Primary Care Provider + Encounter Details Date Type Department Care Team (Latest Contact Info) Description 06/09/2021 Travel Social History Tobacco Use Types Packs/Day [...] Total Score: 0 04/07/19 21 3:00 PM STAKER SURVEYING documented as of this encounter Care Teams Sailing Master Relationship Specialty Start Date End Date Damaris Nicolas PAC [address] [place] [address] PCP - General Physician Demonstrator Knitting 04/07/20 08/27/21 documented as of this encounter
--- OUTSIDE RECORDS SUMMARY | 2024-03-21 22:07 | XMS_ITS | Encounter Summary ---
Author Organization [facility] Address [address] [place] [address] Phone Care Team Providers Care Vamp Stitcher Name Role Phone Yvette Nash MD Primary Care Provider +1- [phone] Ricky Zepeda DPM Unavailable Unavailable Lindy Frausto APRN, MOLD SHIFTER Unavailable Encounter Details Date Type Department Care Team (Late st Contact Info) Description 08/22/2022 Telephone [facility] - Gastroenterology - [place] [address] [place] [address] Lindy Frausto APRN, MOLD SHIFTER [address] [place] [address] Social History Tobacco Use Types [...] Encounter - Franck Flores CMA - 08/30/2022 9:54 AM CDT Call returned to patient and patient scheduled for 10/09/[address] leonard * Telephone Encounter - Tiffany Cook RN - 08/24/2022 2:18 PM CDT Patient is aware and verbalizes understanding. Routing to [facility] for EGD scheduling. * Telephone Encounter - Tiffany Cook RN - 08/22/2022 1:26 PM CDT Left message to call back. * Telephone Encounter - Tiffany Cook RN - 08/22/2022 1:25 PM CDT ----- Message from Lindy Frausto APRN, MOLD SHIFTER sent at 08/20/2022 9:15 AM CDT ----- Ultrasound noted a fatty liver, otherwise normal. He needs to follow a low fat/low carb diet and regular exercise Also avoid alcohol Needs to schedule EGD if not already done documented in this encounter Plan of Treatment Not on file documented as of this encounter Visit Diagnoses Not on filedocumented in this encounter Additional Health Concerns Assessment Noted Time PHQ-9 Depression Total Score: 0 04/07/19 21 3:00 PM CHINESE LANGUAGE PROFESSOR documented as of this encounter Care Teams Vamp Stitcher Relationship Specialty Start Date End Date Yvette Nash MD [address] [place] [address] PCP - General Family Medicine 08/28/21 08/26/23 Ricky Zepeda DPM Podiatry 08/30/21 Lindy Frausto APRN, MOLD SHIFTER [address] [place] [address] Nurse Practitioner Advanced Practice Nurse 07/31/22 documented as of this encounter
--- OUTSIDE RECORDS SUMMARY | 2024-03-21 22:07 | XMS_ITS | Encounter Summary ---
Author Organization [facility] Address [address] [place] [address] Phone Care Team Providers Care Coding Auditor Name Role Phone Yvette Nash MD Primary Care Provider +1- [phone] Ricky Zepeda DPM Unavailable Unavailable Encounter Details Date Type Department Care Team (Late st Contact Info) Description 10/25/2021 [facility]phone [facility] [address] [place] [id number] Ricky Zepeda, DPM Social History Tobacco Use [...] Telephone Encounter - Ness Martin - 10/25/2021 3:48 PM CDT Left foot xrays prior to appointment with Dr. Zepeda for left big toe fracture documented in this encounter Plan of Treatment Not on file documented as of this encounter Visit Diagnoses Not on filedocumented in this encounter Additional Health Concerns Assessment Noted Time PHQ-9 Depression Total Score: 0 04/07/19 21 3:00 PM TRIPE SCRAPER documented as of this encounter Care Teams Coding Auditor Relationship Specialty Start Date End Date Yvette Nash MD [address] [place] [address] PCP - General Family Medicine 08/28/21 08/26/23 Ricky Zepeda DPM Podiatry 08/30/21 documented as of this encounter
--- OUTSIDE RECORDS SUMMARY | 2024-03-21 22:07 | XMS_ITS | Encounter Summary ---
Author Organization [employer] Care Team Providers Care Skiver Box Toe Name Role Phone Yvette Nash MD Primary Care Provider Ricky Zepeda DPM Unavailable Unavailable Encounter Details Date Type Department Care Team (Latest Contact Info) Description 10/25/2021 Travel Social History Tobacco Use Types Packs/Day [...] Total Score: 0 04/07/19 21 3:00 PM OUTPATIENT ADMITTING CLERK documented as of this encounter Care Teams Skiver Box Toe Relationship Specialty Start Date End Date Yvette Nash MD [address] [place] [address] PCP - General Family Medicine 08/28/21 08/26/23 Ricky Zepeda DPM Podiatry 08/30/21 documented as of this encounter
--- OUTSIDE RECORDS SUMMARY | 2024-03-21 22:07 | XMS_ITS | Encounter Summary ---
Author Organization [employer] Care Team Providers Care Undraped Artist Model Name Role Phone Yvette Nash MD Primary Care Provider +1- [phone] Ricky Zepeda DPM Unavailable Unavailable Lindy Frausto APRN, DOG HAIR CLIPPER Unavailable Encounter Details Date Type Department Care Team (Latest Contact Info) Description 08/18/2022 Travel Social History Tobacco Use Types Packs/Day [...] Total Score: 0 04/07/19 21 3:00 PM POSTMASTER RELIEF documented as of this encounter Care Teams Undraped Artist Model Relationship Specialty Start Date End Date Yvette Nash MD [address] [place] [address] PCP - General Family Medicine 08/28/21 08/26/23 Ricky Zepeda DPM Podiatry 08/30/21 Lindy Frausto APRN, DOG HAIR CLIPPER [address] [place] [address] Nurse Practitioner Advanced Practice Nurse 07/31/22 documented as of this encounter
--- OUTSIDE RECORDS SUMMARY | 2024-03-21 22:07 | XMS_ITS | Encounter Summary ---
Author Organization [facility] Address [address] [place] [address] Phone Care Team Providers Care Manager Custom Name Role Phone Yvette Nash MD Primary Care Provider +1 [phone] Ricky Zepeda DPM Unavailable Unavailable Reason for Referral * Radiology Services (Routine) - Closed Specialty Diagnoses / Procedures Referred By Contac t Referred To Contact Radiology Diagnoses Injury of finger of left hand, initial encounter Procedures XR FINGER(S) MIN 2 VIEWS LT Damaris Nicolas PAC [address] [place] [address] Phone: tel: fax: Referral ID Status Reason Start Date Expiration Date Visits Re quested Visits Authorized [id number] Closed 06/28/2022 1 1 Reason for Visit * Radiology Services (Routine) - Closed Specialty Diagnoses / Procedures Referred By Leonard gonzalez Referred To Contact Radiology Diagnoses Injury of finger of left hand, initial encounter Procedures XR FINGER(S) MIN 2 VIEWS LT Damaris Nicolas PAC [address] [place] [address] Phone: tel: fax: Referral ID Status Reason Start Date Expiration Date Visits Re quested Visits Authorized [id number] Closed 06/28/2022 1 1 Encounter Details Date Type Department Care Team (Latest Contact Info) Description 06/28/2022 3:27 PM CDT - 06/28/2022 11:59 PM CDT Hospital Encounter [facility] Diagnostic Radiology [address] [place] [id number] Maria Isabel Damaris Howard, PAC [address] [place] [address] Discharge Disposition: Discharged to home or Selfcare [...] this encounter Medications at Time of Discharge amitriptyline (ELAVIL) 10 MG Tablet Take 1 Tablet by mouth nightly. 90 Tablet 06/28/2022 10/04/2022 fluticasone (FLOVENT HFA) 220 MCG/ACT Aerosol Take 2 Puffs by mouth. 05/12/2019 07/31/2022 pantoprazole (PROTONIX) 40 MG Tablet Delayed ResponseIndication s:Eosinophilic esophagitis Take 1 Tablet by mouth 2 times daily. 60 Tablet 1 05/31/2022 08/15/2022 documented as of this encounter Plan of Treatment Not on file documented as of this encounter Procedures Procedure Name Priority Date/Time Associated Diagnosis Comments XR FINGER(S) MIN 2 VIEWS LT Routine 06/28/2022 3:34 PM CDT Injury of finger of left hand, initial encounter documented in this encounter Results * XR FINGER(S) MIN [...] PM T: ??06/29/2022 12:34 PM Report ID: [id number] Reading Location: ??[id number] Procedure Note Rashi Madrid MD - 06/29/2022 [...] Rashi Madrid M.D. MF: [id number] Report ID: [id number] Reading Location: [id number] IMPRESSION: No acute fracture. us Damaris Nicolas PAC IMG DIAGNOSTIC ORDERABLE S Final Result documented in this encounter Visit Diagnoses Diagnosis Injury of finger of left hand, initial encounter documented in this encounter Additional Health Concerns Assessment Noted Time PHQ-9 Depression Total Score: 0 04/07/19 3:00 PM ELECTRICAL AND INSTRUMENT ENGINEER documented as of this encounter Care Teams Manager Custom Relationship Specialty Start Date End Date Yvette Nash MD [address] [place] [address] PCP - General Family Medicine 08/28/21 08/26/23 Ricky Zepeda DPM Podiatry 08/30/21 documented as of this encounter
--- OUTSIDE RECORDS SUMMARY | 2024-03-21 22:07 | XMS_ITS | Encounter Summary ---
Author Organization [facility] Address [address] [place] [address] Phone Care Team Providers Care Mergers And Acquisitions Consultant Name Role Phone Laine Sharp MD Primary Care Provider +1- [phone] Reason for Visit * Reason Onset Date Comments New Patient 04/05/2020 establish care/ right wrist pain, stiffness Encounter Details Date Type Department Care Team (Late st Contact Info) Description 04/05/2020 Telephone [facility] [address] [place] [address] Provider, None [place] New Patient (establish care/ right wrist pain, stiffness) Social History Tobacco Use Types Packs/Day Years [...] COVID-19? No / Unsure 04/05/2020 2:17 PM DRAWING SUPERVISOR documented as of this encounter Miscellaneous Notes * Telephone Encounter - Satya Jaimes - 04/05/2020 2:19 PM CST ----- Message from Eusebia Guerra sent at 04/05/2020 1:41 PM DRAWING SUPERVISOR ----- Regarding: NEW PATIENT New [facility] Primary Provider Request Name of person calling: SALEEM Relationship to patient:FELICIA Preferred phone number: [phone] Alternate phone number: NA Region / Office location preference: [place] Provider preference (male/female, specific provider name): DR. SMILEY Willing to see someone other than physician, such as ZEUS, [place], resident? YES Patient reason for appointment/any current symptoms: ESTABLISH CARE- PAIN IN RIGHT WRIST- Other information (including need for paper tube machine operator): NA Route ALL calls to: [facility] PATIENT BLEACH RANGE OPERATOR Appointment scheduled 04/07/20- Damaris Nicolas. ING SUPERVISOR ING SUPERVISOR documented in this encounter Plan of Treatment Not on file documented as of this encounter Visit Diagnoses Not on filedocumented in this encounter Care Teams Mergers And Acquisitions Consultant Relationship Specialty Start Date End Date Laine Sharp MD [address] [facility] [address] [place] [address] PCP - General Pediatrics 03/03/19 04/06/20 documented as of this encounter
--- OUTSIDE RECORDS SUMMARY | 2024-03-21 22:07 | XMS_ITS | Encounter Summary ---
Author Organization [facility] Address [address] [place] [address] Phone Care Team Providers Care Laborer Starch Factory Name Role Phone Yvette Nash MD Primary Care Provider Ricky Zepeda DPM Unavailable Unavailable Lindy Frausto APRN, HOMEWORKER Unavailable Encounter Details Date Type Department Care Team (Late st Contact Info) Description 08/02/2022 Refill [facility] - Gastroenterology - [place] [address] [place] [address] Lindy Frausto APRN, HOMEWORKER [address] [place] [address] Social History Tobacco Use Types Packs/Day Years [...] Total Score - Questions 1-9 0 03/2021 Sexually Active Control Partners Comments Yes [...] Telephone Encounter - Franck Flores CMA - 08/02/2022 7:45 AM CDT Received a fax from [facility], patients insurance does not cover the Ondansetron ODT 4 mg tablets. They are stating the preferred alternative is Ondansetron Tab MG. This was pended for you to review and approve if you are agreeable documented in this encounter Plan of Treatment Not on file documented as of this encounter Visit Diagnoses Not on filedocumented in this encounter Additional Health Concerns Assessment Noted Time PHQ-9 Depression Total Score: 0 04/07/19 21 3:00 PM DIESEL ENGINE PIPE FITTER documented as of this encounter Care Teams Laborer Starch Factory Relationship Specialty Start Date End Date Yvette Nash MD [address] [place] [address] PCP - General Family Medicine 08/28/21 08/26/23 Ricky Zepeda DPM Podiatry 08/30/21 Lindy Frausto APRN, HOMEWORKER [address] [place] [address] Nurse Practitioner Advanced Practice Nurse 07/31/22 documented as of this encounter
--- OUTSIDE RECORDS SUMMARY | 2024-03-21 22:07 | XMS_ITS | Encounter Summary ---
Author Organization [facility] Address [address] [place] [address] Phone Care Team Providers Care Cell Tender Name Role Phone Yvette Nash MD Primary Care Provider +1 [phone] Ricky Zepeda DPM Unavailable Unavailable Lindy Frausto APRN, FURNACE CLERK Unavailable Reason for Visit * Reason Onset Date Comments Prior Authorization 08/21/2022 Encounter Details Date Type Department Care Team (Late st Contact Info) Description 08/21/2022 Telephone [facility] [place] [address] [place] [address] Yvette Nash MD [address] [place] [address] Prior Authorization Social History Tobacco Use Types Packs/Day Years [...] Elena Clements - 08/24/2022 1:59 PM CDT Medication approved, faxed approval to pharmacy. * Telephone Encounter - Rosa Elena Clements - 08/24/2022 1:53 PM CDT Images from the original note were not included. * Telephone Encounter - Rosa Elena Clements - 08/23/2022 3:48 PM CDT Submitted prior authorization to insurance. * Telephone Encounter - Nicolasa Luis APRN, CNP - 08/21/2022 4:03 PM CDT Okay for prior authorization * Telephone Encounter - Rosa Elena Clements - 08/21/2022 1:12 PM CDT Insurance requiring a prior authorization on Pantoprazole due to will only pay for max qty. 90 in 365 days. Ok to proceed? documented in this encounter Plan of Treatment Not on file documented as of this encounter Visit Diagnoses Not on filedocumented in this encounter Additional Health Concerns Assessment Noted Time PHQ-9 Depression Total Score: 0 04/07/19 21 3:00 PM CAKE WINDER documented as of this encounter Care Teams Cell Tender Relationship Specialty Start Date End Date Yvette Nash MD [address] [place] [address] PCP - General Family Medicine 08/28/21 08/26/23 Ricky Zepeda DPM Podiatry 08/30/21 Lindy Frausto APRN, FURNACE CLERK [address] [place] [address] Nurse Practitioner Advanced Practice Nurse 07/31/22 documented as of this encounter
--- OUTSIDE RECORDS SUMMARY | 2024-03-21 22:07 | XMS_ITS | Encounter Summary ---
Author Organization [employer] Care Team Providers Care Pipe Stress Engineer Name Role Phone Yvette Nash MD Primary Care Provider Ricky Zepeda DPM Unavailable Unavailable Encounter Details Date Type Department Care Team (Latest Contact Info) Description 06/28/2022 Travel Social History Tobacco Use Types Packs/Day [...] Total Score: 0 04/07/19 21 3:00 PM SUPERVISOR CONCRETE PIPE PLANT documented as of this encounter Care Teams Pipe Stress Engineer Relationship Specialty Start Date End Date Yvette Nash MD [address] [place] [address] PCP - General Family Medicine 08/28/21 08/26/23 Ricky Zepeda DPM Podiatry 08/30/21 documented as of this encounter
--- OUTSIDE RECORDS SUMMARY | 2024-03-21 22:07 | XMS_ITS | Encounter Summary ---
Author Organization [facility] Address [address] [place] [address] Phone Care Team Providers Care Leak Patcher Name Role Phone Laine Sharp MD Primary Care Provider +1- [phone] Reason for Visit * Reason Comments Fever Encounter Details Date Type Department Care Team (Late st Contact Info) Description 01/20/2020 9:40 AM GEAR TESTER [facility] [place] [address] [place] [id number] Testing, [facility] Nurse MA Cough; Close exposure to COVID-19 virus Discharge Disposition: [...] Coronavirus / COVID-19? Yes 01/19/2020 7:02 PM GEAR TESTER documented as of this encounter Progress Notes * Juanita Fields RN - 01/20/2020 9:40 AM CST Patient presents to [facility] care in personal car for drive up nasopharyngeal COVID 19 swab. Left nare swabbed with no difficulty and patient tolerated well. Written instruction given on care at home, and home isolation. Specimen sent to [facility] TESTER documented in this encounter Plan of Treatment Not on file documented as of this encounter Procedures Procedure Name Priority Date/Time Associated Diagnosis Comments SARS-COV-2 BY MOLECULAR Routine 01/20/2020 8:53 AM GEAR TESTER Cough Close exposure to COVID-19 virus documented in this encounter Results * (ABNORMAL) SARS-COV-2 BY MOLECULAR (01/20/2020 8:53 AM GEAR TESTER) SARSCOV2 DETECTED(A ) (Referenc e Range for this test is Not Detected) [facility] THERMOFISHER FAST DX 01/21/2020 9:19 PM GEAR TESTER [facility] Swab NASOPHARYNGEAL STRUCTURE / Unknown Non-Phlebotomy Collection / Unknown 01/20/2020 8:53 AM GEAR TESTER 01/20/2020 8:53 AM GEAR TESTER Narrative [facility] - 01/21/2020 9:19 PM GEAR TESTER Authorized Fact Sheets about this test for providers and patients are available at: https://www.fda.gov/medical-devices/tsrnrbokb-vwujlcavat-gwtojwl-devices/emergen cy-us e-authorizations Jazmine Caal HARD CANDY SPINNER, PRODUCT LINE MANAGER MICROBIOLOGY - GENERA L ORDERABLES Final Result [facility] [address] [place] [address], documented in this encounter Visit Diagnoses Diagnosis Cough Close exposure to COVID-19 virus documented in this encounter Additional Health Concerns Infection Onset Date Last Indicated Resolved Time COVID - 19 01/20/2020 01/20/2020 01/21/2020 9:19 PM GEAR TESTER documented as of this encounter Care Teams Leak Patcher Relationship Specialty Start Date End Date Laine Sharp MD [address] [place] [address] [address] [place] [address] PCP - General Pediatrics 03/03/19 04/06/20 documented as of this encounter
--- OUTSIDE RECORDS SUMMARY | 2024-03-21 22:07 | XMS_ITS | Encounter Summary ---
Author Organization [employer] Care Team Providers Care Souvenir Street Vendor Name Role Phone Yvette Nash MD Primary Care Provider Ricky Zepeda DPM Unavailable Unavailable Encounter Details Date Type Department Care Team (Latest Contact Info) Description 01/03/2022 Travel Social History Tobacco Use Types Packs/Day [...] Total Score: 0 04/07/19 21 3:00 PM ALIGNING INSPECTOR documented as of this encounter Care Teams Souvenir [address] Vendor Relationship Specialty Start Date End Date Yvette Nash MD [address] [place] [address] PCP - General Family Medicine 08/28/21 08/26/23 Ricky Zepeda DPM Podiatry 08/30/21 documented as of this encounter
--- OUTSIDE RECORDS SUMMARY | 2024-03-21 22:07 | XMS_ITS | Encounter Summary ---
Author Organization [facility] Address [address] [place] [address] Phone Care Team Providers Care Public Improvement Inspector Name Role Phone Yvette Nash MD Primary Care Provider [phone] Ricky Zepeda DPM Unavailable Unavailable Lindy Frausto APRN, CNP Unavailable Reason for Referral * Other (Routine) - Closed Specialty Diagnoses / Procedures Referred By Leonard gonzalez Referred To Contact Gastroenterology Diagnoses Eosinophilic esophagitis Nausea and vomiting, unspecified vomiting type Procedures GASTRO PROCEDURE Lindy Frausto APRN, CNP [address] [place] [address] Phone: tel: fax: Referral ID Status Reason Start Date Expiration Date Visits Re quested Visits Authorized [id number] Closed 07/31/2022 1 1 * Radiology Services (Routine) - Closed Specialty Diagnoses / Procedures Referred By Leonard gonzalez Referred To Contact Radiology Diagnoses Nausea and vomiting, unspecified vomiting type Procedures US ABDOMEN COMPLETE Lindy Frausto APRN, CNP [address] [place] [address] Phone: tel: fax: Referral ID Status Reason Start Date Expiration Date Visits Re quested Visits Authorized [id number] Closed 07/31/2022 1 1 Reason for Visit * Reason Comments New Patient * Consult, Test & Initiate Treatment (Routine) - Closed Specialty Diagnoses / Procedures Referred By Contlan t Referred To Contact Gastroenterology Diagnoses Eosinophilic esophagitis Damaris Nicolas, PAC [address] [place] [address] Phone: tel: fax: [facility] [address] [place] [address] Phone: tel: fax: Referral ID Status Reason Start Date Expiration Date Visits Re quested Visits Authorized [id number] Closed 05/31/2022 1 1 Encounter Details Date Type Department Care Team (Late st Contact Info) Description 07/31/2022 1:30 PM CDT Office Visit [facility] [address] [place] [address] Lindy Frausto APRN, WEATHERIZATION DIRECTOR [address] [place] [address] Eosinophilic esophagitis (Primary Dx); Nausea and vomiting, unspecified vomiting type; Left upper quadrant abdominal pain Discharge Disposition: Discharged to home or Selfcare [...] Sign Reading Time Taken Comments Blood Pressure 120/76 07/31/2022 1:53 PM CDT Pulse 84 07/31/2022 1:53 PM CDT Temperature 37.7 ??C (99.8 ??F) 07/31/2022 1:53 PM CD T Respiratory Rate 14 07/31/2022 1:53 PM CDT Oxygen Saturation 97% 07/31/2022 1:53 PM CDT Inhaled Oxygen Concentration - - Weight 102.3 kg (225 lb 9.6 oz) 07/31/2022 1:53 PM CDT Height 172.7 cm (5' 8 ) 07/31/2022 1:53 PM CDT Body Mass Index 34.3 07/31/2022 1:53 PM CDT documented in this encounter Progress Notes * Lindy Frausto APRN, WEATHERIZATION DIRECTOR - 07/31/2022 1:30 PM CDT [facility] - [facility] [address] [facility] [address] Dept: [phone] Dept Loc: [phone] Loc Patient: Lavelle Michael : 2000 Sex: male Medical Decision Making: Assessment & Plan Diagnoses and all orders for this visit: Eosinophilic esophagitis - GASTROENTEROLOGY REFERRAL - GASTRO PROCEDURE; Future - fluticasone (FLOVENT HFA) 220 MCG/ACT Aerosol; Take 2 puffs by mouth daily Nausea and vomiting, unspecified vomiting type - US ABDOMEN COMPLETE; Future - GASTRO PROCEDURE; Future - ondansetron (ZOFRAN-ODT) 4 MG TABLET DISPERSIBLE; Take 1 Tablet by mouth every 8 hours as needed for Nausea - 1st line. Left upper quadrant abdominal pain - dicyclomine (BENTYL) 10 MG Capsule; Take 1 Capsule by mouth 2 times daily as needed for Other. He is here today to establish care and monitoring of his EOE and gastritis. He recently restarted pantoprazole about 1 month ago, before that he had not been on a anti-reflux medication. He does state that when he was younger he did take Nexium. He also has not been using his Flovent inhaler for the EOE as advised. We did discuss the importance of this medication and he states that he will start using it again. A refill was sent out to his pharmacy. His last EGD was in 2019 where it was noted to have mild esophagitis with marked increase in intraepithelial eosinophils greater than 50/hpf. At this time an EGD order was placed. He also has weekly episodes of nausea and vomiting with diarrhea. This is likely due to his historyof gastritis. Script for Zofran and dicyclomine was sent to the pharmacy to see if this helps with the nausea and the abdominal pain that he gets during these episodes. His last colonoscopy was done in 2019 was noted to be normal with exception of 1 rectal polyp that was removed with pathology noting hyperplastic benign. At this time repeat colonoscopy can be deferred for 5 years and would be due in 2024 unless he develops symptoms that warrant to do it sooner. Abdominal ultrasound was also ordered as he has been having the abdominal pain with nausea and vomiting. He is not had any recent imaging and he does still have his gallbladder. If ultrasound is normal and symptoms continue we can consider a HIDA scan in the future. Return in about 6 months (around 01/31/2023) for EOE, nausea and vomiting. Subjective Subjective: HPI: Lavelle Michael is a 22 y.o. male presents for New Patient Lavelle is here as a new patient with referral from PCP for eosinophilic esophagitis and gastritis. He is here with his fiance today. Patient is the historian for the visit. He reports that he has had GI issues since he was a kid. He was previously followed by [facility] were he had multiple EGDs and colonoscopies done for EOE and gastritis. A total of 4 EGDs and 4 colonoscopies were noted to be done at the [facility]. His last EGD was in 2019 report notes mild peptic duodenitis, intact villous and crypt architecturewithout increased intraepithelial lymphocytes. Mild chronic gastritis, no active inflammation or H pylori. Esophagus noted mild esophagitis with marked increase in intraepithelial eosinophils greaterthan 50/hpf His last colonoscopy was in 2019 reported unremarkable. He did have a rectal polyp that was removedand pathology reports hyperplastic polyp benign. He was recently restarted on pantoprazole 40 mg daily and advised to restart his flovent inhaler for the EOE. He states that over the last 1-2 months he has started to have an increase of nausea and vomiting. He states that at least once a week he will have an episode of nausea that will lead to vomiting. Hestates that he may vomit multiple times through out the day. He states that this usually only last for about 24 hours and he wakes up the next day feeling fine. He states that when he has the nausea and vomiting he will also have diarrhea. His bowels are normal on his good days. He denies any BRB or dark tarry stools. He denies dysphagia and has had no weight loss. He has no other chronic health issues. He has had no abdominal surgeries. Problem List: There is no problem list on file for this patient. Past Medical History: Past Medical History Positives Diagnosis Date ??? Eosinophilic gastroenteritis Past Surgical History: Past Surgical History: Procedure Laterality Date ??? TESTICLE SURGERY N/A Family History: Family History Problem Relation Age of Onset ??? No Known Problems Mother ??? No Known Problems Father ??? No Known Problems Brother ??? Diabetes Paternal Grandfather Social History: Social History Socioeconomic History ??? Marital status: Single Tobacco Use ??? Smoking status: Never ??? Smokeless tobacco: Never Vaping Use ??? Vaping Use: Never used Substance and Sexual Activity ??? Alcohol use: Never ??? Drug use: Never ??? Sexual activity: Yes Partners: Female Medications: Current Outpatient Medications: ??? amitriptyline (ELAVIL) 10 MG Tablet ??? dicyclomine (BENTYL) 10 MG Capsule ??? fluticasone (FLOVENT HFA) 220 MCG/ACT Aerosol ??? ondansetron (ZOFRAN-ODT) 4 MG TABLET DISPERSIBLE ??? pantoprazole (PROTONIX) 40 MG Tablet Delayed Response Allergies: Allergies Allergen Reactions ??? Medical Adhesive Remover Rash (reported on 05/05/2012) Clear tape caused irritation; please use cloth tape. Review of systems was negative, except as documented in HPI. Objective Objective: BP 120/76 Pulse 84 Temp 99.8 ??F (37.7 ??C) Resp 14 Ht 5' 8 (1.727 m) Wt 225 lb 9.6 oz (102.3 kg) SpO2 97% BMI 34.30 kg/m?? General appearance: alert, no distress, cooperative, appears stated age Head: Normocephalic, without obvious abnormality, atraumatic Neck: supple, symmetrical, trachea midline and no adenopathy Lungs: clear to auscultation bilaterally Abdomen: soft, non-tender. Bowel sounds normal. No masses, no organomegaly Neurologic: Alert and oriented X 3. Labs: Lab Results Component Value Date WBC [...] No results found. Review of diagnostic tests: labs, prior EGD and colonoscopy reports Lindy Frausto APRN, MERLENE This note was transcribed using [employer] speech recognition software. As a result, there may be unintended grammar and spelling errors. documented in this encounter Plan of Treatment Scheduled Orders Name Type Priority Associated Diagnoses Orde r Schedule GASTRO PROCEDURE Procedures Routine Eosinophilic esophagitis Nausea and vomiting, unspecified vomiting type Expected: 07/31/2022 (Approximate), Expires: 08/01/2023 documented as of this encounter Results * Liver (US Abdomen [...] signed by ??Ramon Doran M.D. CH: D: ??08/18/2022 4:28 PM T: ??08/18/2022 4:28 PM Report ID: [id number] Reading Location: ??[id number] Procedure Note Ramon Doran Jr., MD - [...] Ramon Doran M.D. CH: ALFONSO Report ID: [id number] Reading Location: [id number] IMPRESSION: Hepatic steatosis. Otherwise negative abdominal ultrasound. Lindy Frausto APRN, MERLENE IMG US ORDERABLES Final Result documented in this encounter Visit Diagnoses Diagnosis Eosinophilic esophagitis- Primary Nausea and vomiting, unspecified vomiting type Left upper quadrant abdominal pain Nausea and vomiting, unspecified vomiting type documented in this encounter Additional Health Concerns Assessment Noted Time PHQ-9 Depression Total Score: 0 04/07/19 21 3:00 PM HAND BENDER documented as of this encounter Care Teams Public Improvement Inspector Relationship Specialty Start Date End Date Yvette Nash MD [address] [place] [address] PCP - General Family Medicine 08/28/21 08/26/23 Ricky Zepeda DPM Podiatry 08/30/21 Lindy Frausto APRN, WEATHERIZATION DIRECTOR [address] [place] [address] Nurse Practitioner Advanced Practice Nurse 07/31/22 documented as of this encounter
--- OUTSIDE RECORDS SUMMARY | 2024-03-21 22:22 | XMS_ITS | Clinical Summary ---
Author Organization [facility] [address] [facility] Address [address] [place] [address] Care Team Providers Care Media Planner / Buyer Name Role Phone Yvette Nash MD Primary Care Provider [phone] Yvette Nash MD Unavailable Allergies Active Allergy Reactions Criticality Noted Date Comments Adhesive Rash Medium 08/14/2023 Paper tape makes my skin break out Diphenhydramine Other (See comments) Low 06/18/2023 Restless Medications amitriptyline (ELAVIL) 10 mg tablet Take by mouth nightly 3 Active dicyclomine (BENTYL) 10 mg capsule Take 1 capsule (10 mg total) by mouth 2 (two) times a day as needed 3 Active Flovent HFA 220 mcg/actuation inhaler INHALE 2 PUFFS BY MOUTH DAILY 3 Active ondansetron ODT (ZOFRAN-ODT) 4 mg disintegrating tablet DISSOLVE 1 TABLET ON THE TONGUE EVERY 8 HOURS NEEDED FOR NAUSEA- FIRST LINE [address] (PROTONIX) 40 mg EC tablet Take 1 tablet (40 mg total) by mouth 2 (two) times a day [address] (CYMBALTA) 30 mg capsule Take 1 capsule (30 mg total) by mouth daily 30 capsule 3 4 06/18/19 25 Active albuterol HFA (PROVENTIL HFA,VENTOLIN HFA,PROAIR HFA) 90 mcg/actuation inhaler INHALE 2 PUFFS BY MOUTH EVERY 4 TO 6 HOURS NEEDED FOR COUGH OR WHEEZING OR SHORTNESS OF BREATH Active Active Problems Problem Noted Date Diagnosed Date Eosinophilic esophagitis 06/18/2023 Dyspepsia 06/18/2023 Surgical History Surgery Date Site/Laterality Comments OTHER SURGICAL HISTORY 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 2-4 times a month 08/22/2023 Average Number of Drinks Not on file 024 Frequency of Binge Drinking Not on file 08/09 Personal Safety Answer Date Recorded Have you ever been in or are you currently in a harmful physical or emotional relationship or is someone making you feel afraid or unsafe? 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 Gender Identity Not on file Sexual Orientation Not on file Obstetrics History Last Filed Vital Signs Vital Sign Reading Time Taken Comments Blood Pressure 128/78 11/30/2023 6:17 PM CDT Pulse 109 11/30/2023 6:17 PM CDT Temperature 36.9 ??C (98.4 ??F) 11/30/2023 6:17 PM CD T Respiratory Rate 18 11/30/2023 6:17 PM CDT Oxygen Saturation 97% 11/30/2023 6:17 PM CDT Inhaled Oxygen Concentration - - Weight 105.3 kg (232 lb 3.2 oz) 11/30/2023 6:17 PM CDT Height 172.7 cm (5' 8 ) 08/22/2023 8:56 AM CDT Body Mass Index 35.31 08/22/2023 8:56 AM CDT Plan of Treatment Health Maintenance Due Date Last Done Comments Depression Screening 2000 Hepatitis C Screening 2000 HPV Vaccines (2 - Male 3-dos e series) 11/04/2015 10/07/2015 Regular Well Visit/Exam 18-64 07/06/2017 Covid-19 Vaccine (3 - 2023-2 5 season) 2023 02/09/2021, 05/17/2020 Influenza Vaccine (#1) 2023 , 12/29/2013, 12/29/2013 DTaP/Tdap/Td Vaccine (8 - Td or Tdap) 06/25/2032 06/25/2022, 02/27/2021, 10/31/2010, Additional history exists Pneumococcal vaccine <65 Completed 07/25/2001, 07/10 Varicella Vaccines Completed 10/31/2010, 07/31/2000 Insurance [facility] [id number] [facility] [id number] [facility] [id number] Advance Directives For more information, please contact: [phone] * Full Code (Latest Code Status on File) Date Activated Date Inactivated Comments 08/22/2023 8:43 AM 08/22/2023 2:34 PM Care Teams Media Planner / Buyer Relationship Specialty Start Date End Date Yvette Nash MD PCP - General Family Medicine 11/21/22 Yvette Nash MD Family Medicine 11/21/22
--- OUTSIDE RECORDS SUMMARY | 2024-03-21 22:23 | XMS_ITS | Encounter Summary ---
Author Organization [facility] Address [address] [place] [address] Phone Care Team Providers Care Non Destructive Tester Name Role Phone Yvette Nash MD Primary Care Provider Yvette Nash MD Unavailable Encounter Details Date Type Department Care Team (Late st Contact Info) Description 06/18/2023 Orders Only [facility] Gastroenterology [address] [facility] Advanced Medicine 12th [place] [address] [place] [address] Salvador Linares MD [address] [place] [address] Eosinophilic esophagitis (Primary Dx); Dyspepsia Social History Tobacco Use Types Packs/Day Years Used Date Smoking Tobacco: Never Smokeless Tobacco: Never Personal Safety Answer Date Recorded Getting School Help Needed Not on file 03/02 Sex and Gender Information Value Date Recorded Sex Assigned at Not on file 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 Gender Identity Not on file Sexual Orientation Not on file documented as of this encounter Plan of Treatment Not on file documented as of this encounter Visit Diagnoses Diagnosis Eosinophilic esophagitis- Primary Dyspepsia Dyspepsia and other specified disorders of function of stomach documented in this encounter Orders Case Request Count Last Ordered Date First Orde red Date CASE REQUEST GI 1 06/18/2023 documented in this encounter Care Teams Non Destructive Tester Relationship Specialty Start Date End Date Yvette Nash MD PCP - General Family Medicine 11/21/22 Yvette Nash MD Family Medicine 11/21/22 documented as of this encounter
--- OUTSIDE RECORDS SUMMARY | 2024-03-21 22:23 | XMS_ITS | Encounter Summary ---
Author Organization [facility] Healthcare Address [address] [place] [address] Care Team Providers Care Financial Coach Name Role Phone Yvette Nash MD Primary Care Provider Yvette Nash MD Unavailable Reason for Visit * Reason Comments Sore Throat Pt has come in today with C/O of sore throat, runny nose and coughing. Pt stated his symptoms started about four days ago. Pt states he has taken allergy medication and decongestant medication OTC. Encounter Details Date Type Department Care Team (Late st Contact Info) Description 11/30/2023 6:30 PM CDT Office Visit [facility] [place] [address] [place] [address] Cindy Jean, GERIATRIC PERSONAL CARE AIDE [address] [place] [address] Viral URI with cough (Primary Dx); Non-recurrent acute suppurative otitis media of right ear without spontaneous rupture of tympanic membrane Social History Tobacco Use Types Packs/Day Years Used Date Smoking Tobacco: Never Smokeless Tobacco: Never AUDIT-C Answer Date Recorded Q1: How often [...] on file Legal 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 Probiotics or eating yogurt can help diarrhea caused by antibiotics. If diarrhea is severe, stop medication and call PCP. Keep ear canal free from water Do not place Q-Tips or other objects into ear canal Do not use OTC ear drops without consulting with your healthcare provider. May take Tylenol or Ibuprofen for fever or pain as directed per package instructions. Reviewed education materials and instructions with patient and answered all questions. Follow up with Yvette Nash MD if symptoms worsen or do not completely resolve. Children under age 2 should follow up with general road foreman in 2-3 weeks to make sure infection is gone. If prescribed topical ear drops: Proper installation of ear drops entails tilting the head toward the opposite shoulder, pulling theupper portion of the up and forward, and filling the ear canal with drops. Lie on your side for [address] a cotton ball in the ear canal for 20 minutes to maximize medicine exposure. GO TO THE ER WITH ANY NEW ONSET OF FEVER, PAIN BEHIND THE EAR AND/OR REDNESS OVER THE BONE BEHIND THE EAR, OR SWELLING OF THE EXTERNAL EAR AND/OR EXTERNAL EAR APPEARING TO BE DISPLACED DOWNWARD. THESE ARE ALL SIGNS OF A SERIOUS COMPLICATION AND REQUIRES IMMEDIATE ATTENTION. Magic mouthwash: equal parts liquid benadryl/diphenhydramine and maalox/mylanta + 1-2 drops of anbesol. Gargle and spit every 6 hours for sore throat as needed. PHARYNGITIS Strep testing today was Negative A throat culture has been sent to the lab. The clinic will call with abnormal results. Most sore throats are caused by viruses. Viruses last approx 7-10 days on average. Antibiotics do not help. Using them to treat viral infections helps strengthen bacteria and make them resistant to antibiotics. Sore throats should only be treated with antibiotics if a strep test is positive. Follow up with your pcp if symptoms are not improving. Go to ER/call PCP if worsening symptoms including fever unrelieved by tylenol/ibuprofen, rash, difficulty swallowing, tonsillar/throat swelling, difficulty breathing. The following tips may help your sore throat feel better: ? Drink warm liquids such as lemon tea or tea with honey. ? Gargle several times a day with warm salt water (1/2 tsp of salt in 1 cup water). ? Drink cold liquids or suck on popsicles. ? Suck on hard candies or throat lozenges. Young children should not be given such products becausethey can choke on them. ? A cool-mist vaporizer or humidifier can moisten and soothe a dry and painful throat. ? Try [id number] pain medications, such as acetaminophen or ibuprofen documented in this encounter Ordered Prescriptions Prescription Sig Dispense Quantity Refills Last Filled Start Date End Date amoxicillin (AMOXIL) 875 mg tabletIndications: Non-recurrent acute suppurative otitis media of right ear without spontaneous rupture of tympanic membrane Take 1 tablet (875 mg total) by mouth 2 (two) times a day for 7 days 14 tablet 11/30/2023 12/07/2023 documented in this encounter Progress Notes * Cindy Jean NP - 11/30/2023 6:30 PM CDT Images from the original note were not included. Subjective/Objective Patient ID: Lavelle Michael is a 23 y.o. male. Chief Complaint Sore Throat (Pt has come in today with C/O of sore throat, runny nose and coughing. Pt stated his symptoms started about four days ago. Pt states he has taken allergy medication and decongestant medication OTC. ) Pt presents to with c/o sore throat, runny nose, cough for the past 4 days. OTC meds tried-allergy pill, decongestant. Denies SOB or fever. Pt is drinking plenty of fluids. No known sick contacts. Sore Throat Review of Systems HENT: Positive for sore throat. All systems reviewed and are negative or non contributory for this patient's presentation today other than as stated in the HPI. Physical Exam Vitals reviewed. Constitutional: General: He is not in acute distress. Appearance: He is not ill-appearing or toxic-appearing. HENT: Head: Normocephalic. Right Ear: Ear canal and external ear normal. A middle ear effusion is present. Tympanic membrane is injected. Left Ear: Tympanic membrane, ear canal and external ear normal. Nose: Nose normal. Mouth/Throat: Mouth: Mucous membranes are moist. Eyes: Conjunctiva/sclera: Conjunctivae normal. Cardiovascular: Rate and Rhythm: Normal rate and regular rhythm. Heart sounds: Normal heart sounds. Pulmonary: Effort: Pulmonary effort is normal. No respiratory distress. Breath sounds: Normal breath sounds. Abdominal: Palpations: Abdomen is soft. Skin: General: Skin is warm and dry. Neurological: General: No focal deficit present. Mental Status: He is alert and oriented to person, place, and time. Psychiatric: Mood and Affect: Mood normal. Behavior: Behavior normal. Thought Content: Thought content normal. Vitals: 11/30/23 1817 BP: 128/78 BP Location: Right arm Patient Position: Sitting Pulse: 109 Resp: 18 Temp: 36.9 ??C (98.4 ??F) TempSrc: Oral SpO2: 97% Weight: 105.3 kg (232 lb 3.2 oz) No LMP for male patient. Assessment/Plan Rapid covid, flu, and strep negative Throat culture collected Amoxicillin prescribed for acute otitis media Discussed follow-up precautions and home care including OTC meds and keeping the ear dry while on antibiotics Diagnoses and all orders for this visit: Viral URI with cough (Primary) - POCT rapid strep A Non-recurrent acute suppurative otitis media of right ear without spontaneous rupture of tympanic membrane - POC Influenza A/B, COVID-19 antigen - amoxicillin (AMOXIL) 875 mg tablet; Take 1 tablet (875 mg total) by mouth 2 (two) times a day for7 days Recent Results (from the past 24 hour(s)) POC Influenza A/B, COVID-19 antigen Collection Time: 11/30/23 6:33 PM Result Value Ref Range Influenza A Ag, POC Negative Negative Influenza B Ag, POC Negative Negative COVID-19 Ag POC Presumptive Negative Presumptive Negative, Invalid POCT rapid strep A Collection Time: 11/30/23 6:33 PM Result Value Ref Range Rapid Strep A, POC Negative Negative Patient Education: Disposition Treatment plan including expectations, follow up, and return precautions discussed with patient/parent, verbalizes understanding. Medication dosage, use, and potential adverse reactions discussed with patient/parent. Advised to follow up with PCP if symptoms do not resolve as expected or sooner if condition worsens. Signs/symptoms warranting ER evaluation reviewed. Patient and/or guardian was given an opportunity to ask questions, questions answered. This office note has been partially dictated using [employer] software, and as a result portions of the record may have been created with this software. Occasional wrong-word or '[id number]' substitutions may have occurred due to the inherent limitations of voice recognition software. Read the chartcarefully and recognize, using context, where substitutions have occurred Cindy Jean NP documented in this encounter Miscellaneous Notes * Addendum Note - Richa Alva CMA - 11/30/2023 6:30 PM CDTAddended by: RICHA ALVA on: 11/30/2023 07:10 PM Modules accepted: Orders documented in this encounter Plan of Treatment Not on file documented as of this encounter Procedures Procedure Name Priority Date/Time Associated Diagnosis Comments POC INFLUENZA A/B, COVID-19 ANTIGEN Routine 11/30/2023 6:33 PM CDT Non-recurrent acute suppurative otitis media of right ear without spontaneous rupture of tympanic membrane POCT RAPID STREP Routine 11/30/2023 6:33 PM CDT Viral URI with cough documented in this encounter Results * Throat culture Throat (11/30/2023 7:10 PM CDT) Report Final Report: No growth of pathogens. Comment:Testing performed by : [facility], [address] [place] [address] Throat 11/30/2023 7:10 PM CDT 12/01/2023 5:06 AM CDT Narrative BRUNO Jordan 12/02/2023 6:51 AM CDT Testing performed by [facility] ([phone]). us Cindy Jean NP LAB MICROBIOLOGY - GENERAL ORD ERABLES Final Result [facility] [address] [place] [address] * POCT rapid strep A (11/30/2023 6:33 PM CDT) Pathologist [facility] Rapid Strep A, POC Negative Negative Swab 11/30/2023 6:33 PM CDT us Cindy Jean GERIATRIC PERSONAL CARE AIDE POINT OF CARE TEST ORDERABLES Final Result * POC Influenza A/B, COVID-19 antigen (11/30/2023 6:33 PM CDT) Pathologist [facility] Influenza A Ag, POC Negative Negative [facility] Influenza B Ag, POC Negative Negative [facility] COVID-19 Ag POC Presumptive Negative Presumptive Negative, Invalid [facility] Nasal 11/30/2023 6:33 PM CDT us Cindy Jean GERIATRIC PERSONAL CARE AIDE POINT OF CARE TEST ORDERABLES Final Result [facility] [address] [place] [address], [facility] documented in this encounter Visit Diagnoses Diagnosis Viral URI with cough- Primary Non-recurrent acute suppurative otitis media of right ear without spontaneous rupture of tympanic membrane Viral URI with cough Non-recurrent acute suppurative otitis media of right ear without spontaneous rupture of tympanic membrane documented in this encounter Additional Health Concerns Infection Onset Date Last Indicated Resolved Time COVID: Suspected 11/30/2023 11/30/2023 11/30/2023 6:44 PM CDT documented as of this encounter Care Teams Financial Coach Relationship Specialty Start Date End Date Yvette Nash MD PCP - General Family Medicine 11/21/22 Yvette Nash MD Family Medicine 11/21/22 documented as of this encounter
--- OUTSIDE RECORDS SUMMARY | 2024-03-21 22:23 | XMS_ITS | Encounter Summary ---
Author Organization [facility] Address [address] [place] [address] Care Team Providers Care [employer] Media Specialist Name Role Phone Unknown, Notinfile Primary Care Provider Unavail able Reason for Visit * Reason Comments Sore Throat Scratchy throat 1 da y ago. Pt feels this may be strep due to how it looks today. Pt has used OTC cold medicine for his Sx. No exposure to anyone who is ill. 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 Gender Identity Not on file Sexual Orientation Not on file documented as of this encounter Last Filed Vital Signs Vital Sign Reading Time Taken Comments Blood Pressure 130/80 08/18/2022 10:08 AM CDT Pulse 82 08/18/2022 10:08 AM CDT Temperature 36.8 ??C (98.2 ??F) 08/18/2022 10:08 AM C DT Respiratory Rate 18 08/18/2022 10:08 AM CDT Oxygen Saturation 96% 08/18/2022 10:08 AM CDT Inhaled Oxygen Concentration - - Weight 101.2 kg (223 lb) 08/18/2022 10:08 AM CDT Height 172.7 cm (5' 8 ) 08/18/2022 10:08 AM CDT Body Mass Index 33.91 08/18/2022 10:08 AM CDT documented in this encounter Patient Instructions * Patient Instructions* Micaela Dunlap NP - 08/18/2022 10:45 AM CDT Complete antibiotic as prescribed Tylenol or Motrin for fever/pain Stay hydrated- Drinking fluids is extremely important to prevent dehydration Gargle with warm saltwater up to 3 times a day as this can help with pain Throat lozenges or sprays Follow up with your PCP if you are not getting better Go to ER if you develop: Trouble swallowing or breathing or if child can barely speak or cry Fever >104 Dehydration or decreased Urine Output, very dry mouth or no tears when crying You may return to work, daycare, or school 24 hours after starting antibiotics and you are fever free Do not share food, drinks, or utensils Replace your toothbrush within 24 hours after starting antibiotics and again after 3-4 days. I recommend washing your pillow cases and sheets after 24 hours Home Treatments: Warm fluids or chicken broth Ice cream, popsicles, slushes, sherbert Gargle w warm salt water Avoid spicy or citrus foods documented in this encounter Ordered Prescriptions Prescription Sig Dispense Quantity Refills Last Filled Start Date End Date amoxicillin 500 mg tablet/capsuleIndic ations:Streptococca l pharyngitis Take 1 tablet/caps ule (500 mg total) by mouth 2 (two) times a day for 10 days 20 tablet/capsule 08/18/2022 08/28/2022 documented in this encounter Progress Notes * Micaela Dunlap NP - 08/18/2022 10:45 AM CDT Images from the original note were not included. Subjective/Objective Patient ID: Lavelle Michael is a 22 y.o. male. Chief Complaint Sore Throat (Scratchy throat 1 day ago. Pt feels this may be strep due to how it looks today. Pt has used OTC cold medicine for his Sx. No exposure to anyone who is ill.) Patient presents to [facility] for sore throat x1 day. He denies any known exposure to COVID, flu, or strep. He has been taking OTC DayQuil and Motrin for his symptoms. He denies any fevers. Sore Throat Pertinent negatives include no congestion, coughing, diarrhea, ear discharge, ear pain, headaches, shortness of breath or vomiting. Review of Systems Constitutional: Negative for activity change, appetite change, fatigue and fever. HENT: Positive for sore throat. Negative for congestion, ear discharge, ear pain, postnasal drip, rhinorrhea and sinus pressure. Eyes: Negative for discharge. Respiratory: Negative for cough and shortness of breath. Gastrointestinal: Negative for diarrhea, nausea and vomiting. Musculoskeletal: Negative for myalgias. Skin: Negative for rash. Neurological: Negative for headaches. Hematological: Negative for adenopathy. Physical Exam Vitals reviewed. Constitutional: General: He is not in acute distress. Appearance: Normal appearance. He is well-developed. He is not ill-appearing. HENT: Head: Normocephalic. Right Ear: Tympanic membrane, ear canal and external ear normal. Left Ear: Tympanic membrane, ear canal and external ear normal. Nose: No congestion or rhinorrhea. Right Sinus: No maxillary sinus tenderness or frontal sinus tenderness. Left Sinus: No maxillary sinus tenderness or frontal sinus tenderness. Mouth/Throat: Lips: [place]. Mouth: Mucous membranes are moist. Pharynx: Oropharynx is clear. Posterior oropharyngeal erythema present. Eyes: General: Right eye: No discharge. Left eye: No discharge. Conjunctiva/sclera: Conjunctivae normal. Cardiovascular: Rate and Rhythm: Normal rate and regular rhythm. Pulmonary: Effort: Pulmonary effort is normal. No respiratory distress. Breath sounds: Normal breath sounds and air entry. Abdominal: Tenderness: There is no abdominal tenderness. Musculoskeletal: General: Normal range of motion. Cervical back: Neck supple. Lymphadenopathy: Head: Right side of head: No tonsillar adenopathy. Left side of head: No tonsillar adenopathy. Cervical: No cervical adenopathy. Skin: General: Skin is warm and dry. Findings: No rash. Neurological: Mental Status: He is alert and oriented to person, place, and time. Mental status is at baseline. Psychiatric: Attention and Perception: Attention normal. Mood and Affect: Mood normal. Behavior: Behavior normal. Behavior is cooperative. Thought Content: Thought content normal. Judgment: Judgment normal. Vitals: 08/18/22 1008 BP: 130/80 Pulse: 82 Resp: 18 Temp: 36.8 ??C (98.2 ??F) TempSrc: Temporal SpO2: 96% Weight: 101.2 kg (223 lb) Height: 172.7 cm (5' 8 ) Assessment/Plan Rapid strep positive Amoxicillin as prescribed Gargle with warm saltwater TID Tylenol/Motrin as needed for pain Return to clinic if symptoms persist after completion of antibiotics or sooner if symptoms worsen Diagnoses and all orders for this visit: Streptococcal pharyngitis (Primary) - amoxicillin 500 mg tablet/capsule; Take 1 tablet/capsule (500 mg total) by mouth 2 (two) times a day for 10 days Sore throat - POCT rapid strep A Recent Results (from the past 4 hour(s)) POCT rapid strep A Collection Time: 08/18/22 10:16 AM Result Value Ref Range Rapid Strep A, POC Positive (A) Negative Patient Education: Disposition Treatment plan including expectations, follow up, and return precautions discussed with patient/parent, verbalizes understanding. Medication dosage, use, and potential adverse reactions discussed with patient/parent. Advised to follow up with PCP if symptoms do not resolve as expected or sooner if condition worsens. Signs/symptoms warranting ER evaluation reviewed. Patient and/or guardian was given an opportunity to ask questions, questions answered. Micaela Dunlap NP documented in this encounter Plan of Treatment Not on file documented as of this encounter Procedures Procedure Name Priority Date/Time Associated Diagnosis Comments POCT RAPID STREP Routine 08/18/2022 10:1 6 AM CDT Sore throat documented in this encounter Results * (ABNORMAL) POCT rapid strep A (08/18/2022 10:16 AM CDT) [facility] Rapid Strep A, POC Positive(A ) Negative Swab 08/18/2022 10:1 6 AM CDT Micaela Dunlap NP POINT OF CARE TEST ORDERABLES Fi nal Result documented in this encounter Visit Diagnoses Diagnosis Streptococcal pharyngitis- Primary Streptococcal sore throat Sore throat Acute pharyngitis documented in this encounter Historical Medications * This list may reflect changes made after this encounter. pantoprazole DR (PROTONIX) 40 mg EC tablet Take 1 tablet (40 mg total) by mouth 2 (two) times a day 07/31/2022 ondansetron ODT (ZOFRAN-ODT) 4 mg disintegrating tablet DISSOLVE 1 TABLET ON THE TONGUE EVERY 8 HOURS NEEDED FOR NAUSEA- FIRST LINE 07/31/2022 Flovent HFA 220 mcg/actuation inhaler INHALE 2 PUFFS BY MOUTH DAILY 07/31/2022 dicyclomine (BENTYL) 10 mg capsule Take 1 capsule (10 mg total) by mouth 2 (two) times a day as needed 07/31/2022 amitriptyline (ELAVIL) 10 mg tablet Take by mouth nightly 06/28/2022 added in this encounter Care Teams [employer] Media Specialist Relationship Specialty Start Date End Date Unknown, Notinfile PCP - General 04/04/22 11/20/22 documented as of this encounter
--- OUTSIDE RECORDS SUMMARY | 2024-03-21 22:23 | XMS_ITS | Encounter Summary ---
Author Organization [facility] Healthcare Address [address] [place] [address] Care Team Providers Care [employer] Gauger Name Role Phone Yvette Nash MD Primary Care Provider Yvette Nash MD Unavailable Reason for Visit * Auth/Cert (Routine) Specialty Diagnoses / Procedures Referred By Leonard gonzalez Referred To Contact Diagnoses Eosinophilic esophagitis Dyspepsia Eosinophilic esophagitis [K20.0] Dyspepsia [R10.13] Procedures IA ESOPHAGOGASTRODUODENOSCOPY TRANSORAL DIAGNOSTIC EGD WITH BX Referral ID Status Reason Start Date Expiration Date Visits Re quested Visits Authorized [id number] 1 1 Encounter Details Date Type Department Care Team (Latest Contact Info) Description 08/22/2023 9:45 AM CDT - 08/22/2023 10:15 AM CDT Surgery [facility] Endoscopy [id number] [address] [id number] Salvador Linares MD [address] [facility] [address] [place] [address] ESOPHAGOGASTRODUODENOSCOPY BIOPSY Surgery Details Date/Time Status Location OR Service Patient Class Case Class Case Type Trauma Case? 08/22/2023 9:45 AM Posted [facility]o 03 Gastroenterology Outpatient Elective Panel 1 Procedure LRB Anes Op Region Wound Class Comments ESOPHAGOGASTRODUODENOSCOPY BIOPSY N/A Monitor Anesthesia Care N/A Surgeon Surgeon Role Service Panel Salvador Linares MD Primary Gastroentero logy 1 documented in this encounter Social History [...] on file Legal Sex Male 12:54 AM [employer]ARD [employer]PER[employer] Gender Identity Not on file Sexual Orientation Not on file documented as of this encounter Last Filed Vital Signs Vital Sign Reading Time Taken Comments Blood Pressure 121/79 08/22/2023 10:15 AM CDT Pulse 68 08/22/2023 10:15 AM CDT Temperature 36.3 ??C (97.3 ??F) 08/22/2023 10:00 AM C DT Respiratory Rate 20 08/22/2023 10:15 AM CDT Oxygen Saturation 97% 08/22/2023 10:15 AM CDT Inhaled Oxygen Concentration - - Weight 104.3 kg (230 lb) 08/22/2023 8:56 AM CDT Height 172.7 cm (5' 8 ) 08/22/2023 8:56 AM CDT Body Mass Index 34.97 08/22/2023 8:56 AM CDT documented in this encounter Medications at Time of Discharge albuterol HFA (PROVENTIL HFA,VENTOLIN HFA,PROAIR HFA) 90 mcg/actuation inhaler INHALE 2 PUFFS BY MOUTH EVERY 4 TO 6 HOURS NEEDED FOR COUGH OR WHEEZING OR SHORTNESS OF BREATH 05/13/2023 amitriptyline (ELAVIL) 10 mg tablet Take by mouth nightly 06/28/2022 dicyclomine (BENTYL) 10 mg capsule Take 1 capsule (10 mg total) by mouth 2 (two) times a day as needed 07/31/[address] (CYMBALTA) 30 mg capsule Take 1 capsule (30 mg total) by mouth daily 30 capsule 3 06/18/2023 5 Flovent HFA 220 mcg/actuation inhaler INHALE 2 PUFFS BY MOUTH DAILY 07/31/2022 ondansetron ODT (ZOFRAN-ODT) 4 mg disintegrating tablet DISSOLVE 1 TABLET ON THE TONGUE EVERY 8 HOURS NEEDED FOR NAUSEA- FIRST LINE 07/31/[address] (PROTONIX) 40 mg EC tablet Take 1 tablet (40 mg total) by mouth 2 (two) times a day 07/31/2022 documented as of this encounter Discharge Disposition Disposition Code Departure Means Destination Comment s Discharge to home or self care documented in this encounter H&P Notes * Salvador Linares MD - 08/22/2023 9:50 AM CDT Pre Endoscopy History and Physical Lavelle Reyes is a 23 y.o. male who is here for Procedure(s): ESOPHAGOGASTRODUODENOSCOPY BIOPSY The indication(s) for the procedure(s): EoE follow up. Past Medical History: Diagnosis Date Eosinophilic esophagitis Past Surgical History: Procedure Laterality Date OTHER SURGICAL HISTORY non descended testicle as child Social History Tobacco Use Smoking status: Never Smokeless tobacco: Never Substance and Sexual Activity Drug use: Never Sexual activity: None Alcohol Use: Unknown (08/22/2023) AUDIT-C Frequency of Alcohol Consumption: 2-4 times a month Average Number of Drinks: Not on file Frequency of Binge Drinking: Not on file No family history on file. Allergies Allergen Reactions Adhesive Rash Paper tape makes my skin break out Benadryl [Diphenhydramine] Other (See comments) Restless Prior to Admission medications Medication Sig Start Date End Date Taking? Authorizing Provider amitriptyline (ELAVIL) 10 mg tablet Take by mouth nightly 06/28/22 Yes ProviderSparkle MD dicyclomine (BENTYL) 10 mg capsule Take 1 capsule (10 mg total) by mouth 2 (two) times a day as needed 07/31/22 Yes Sparkle Dee MD DULoxetine DR (CYMBALTA) 30 mg capsule Take 1 capsule (30 mg total) by mouth daily 06/18/23 06/17/24 Yes Salvador Linares MD ondansetron ODT (ZOFRAN-ODT) 4 mg disintegrating tablet DISSOLVE 1 TABLET ON THE TONGUE EVERY 8 HOURS NEEDED FOR NAUSEA- FIRST LINE 07/31/22 Yes ProviderSparkle MD pantoprazole DR (PROTONIX) 40 mg EC tablet Take 1 tablet (40 mg total) by mouth 2 (two) times a day07/31/22 Yes ProviderSparkle MD albuterol HFA (PROVENTIL HFA,VENTOLIN HFA,PROAIR HFA) 90 mcg/actuation inhaler INHALE 2 PUFFS BY MOUTH EVERY 4 TO 6 HOURS NEEDED FOR COUGH OR WHEEZING OR SHORTNESS OF BREATH 05/13/23 Sparkle Dee MD Flovent HFA 220 mcg/actuation inhaler INHALE 2 PUFFS BY MOUTH DAILY Patient not taking: Reported on 06/18/2023 07/31/22 Sparkle Dee MD Review of Systems A pertinent, focused review of systems was completed and negative, except as noted above. OBJECTIVE: Vitals: Vitals: 08/22/23 0840 08/22/23 0856 08/22/23 0905 08/22/23 0910 BP: 129/81 Pulse: 84 65 68 Resp: 24 11 13 Temp: 36.3 ??C (97.3 ??F) TempSrc: Temporal SpO2: 97% 96% 96% Weight: 104.3 kg (230 lb) Height: 172.7 cm (5' 8 ) Physical Exam: Airway: No significant abnormality. Cardiac: No significant abnormality. Pulmonary: No significant abnormality. Neurological: No significant abnormality. Gastrointestinal: No significant abnormality. ASA Score: per Anesthesia Sedation/Anesthesia Plan: per Anesthesia The risks and complications of the procedure have been explained to the patient. Informed consent was signed. Impression and plan: Will proceed with the planned procedure for the reasons stated above. documented in this encounter Procedure Notes * Salvador Linares MD - 08/22/2023 9:31 AM CDTAssociated Order(s): EGD ENDOSCOPY LAB Patient Name: Lavelle Reyes Procedure Date: 08/22/2023 9:31 AM Date of : 2000 Admit Type: Outpatient Age: 23 Gender: Male Attending MD: Katiana Linares M.D. [facility] Note Status: Finalized Procedure: Upper GI endoscopy Indications: Follow-up of eosinophilic esophagitis, incomplete response to PPI and topical corticosteroids Providers: Katiana Linares M.D. Referring MD: Yvette Nash M.D. Medicines: Monitored Anesthesia Care Complications: No immediate complications. Estimated Blood Loss: Estimated blood loss was minimal. Procedure: Pre-Anesthesia Assessment: - Immediately prior to administration of medications, the patient was re-assessed for adequacy to receive sedatives. After obtaining informed consent, the endoscope was passed under direct vision. Throughout the procedure, the patient's blood pressure, pulse, and oxygen saturations were monitored continuously. The [id number] was introduced through the mouth, and advanced to the second part of duodenum. The upper GI endoscopy was accomplished without difficulty. The patient tolerated the procedure well. Findings: Mucosal changes including ringed esophagus, longitudinal furrows and white plaques were found in the entire esophagus. Esophageal findings were graded using the Eosinophilic Esophagitis Endoscopic Reference Score (EoE-EREFS) as: Edema Grade 1 Present (decreased clarity or absence of vascular markings), Rings Grade 1 Mild (subtle circumferential ridges seen on esophageal distension), Exudates Grade 1 Mild (scattered white lesions involving less than 10 percent of the esophageal surface area), Furrows Grade 1 Present (vertical lines with or without visible depth) and Stricture none (no stricture found). Biopsies were obtained from the proximal and distal esophagus with cold forceps for histology of suspected eosinophilic esophagitis. Diffuse mildly erythematous mucosa was found in the gastric body and in the gastric antrum. Biopsies were taken with a cold forceps for histology. Patchy mildly erythematous mucosa was found in the duodenal bulb and in the second portion of the duodenum. Biopsies were taken with a cold forceps for histology. Impression: - Esophageal mucosal changes consistent with eosinophilic esophagitis. Biopsied. - Erythematous mucosa in the gastric body and antrum. Biopsied. - Erythematous duodenopathy. Biopsied. Recommendation: - Await pathology results. If eosinophil counts remain high, dupilumab will be an option. Continue present medications for now. Electronically signed by Katiana Linares MD Katiana Linares M.D. 08/22/2023 9:54:00 AM Number of Addenda: 0 Note Initiated On: 08/22/2023 9:31 AM documented in this encounter Miscellaneous Notes * Perioperative Nursing Note - Faith Fontenot RN - 08/22/2023 10:28 AM CDT Patient a&ox4. VSS. Patient and family educated on discharge instructions. All questions answered and both verbalized understanding. Patient discharged to home. spoke to pt at bedside. documented in this encounter Plan of Treatment Not on file documented as of this encounter Procedures Procedure Name Priority Date/Time Associated Diagnosis Comments SURGICAL PATHOLOGY Routine 08/22/2023 9:46 AM CDT Eosinophilic esophagitis Dyspepsia ESOPHAGOGASTRODUODENOSCOPY BIOPSY 08/22/2023 9:39 AM CDT Eosinophilic esophagitis Dyspepsia EGD 08/22/2023 9:31 AM CDT documented in this encounter Results * Surgical pathology (08/22/2023 9:46 AM CDT) Tissue (Duodenum, Biopsy) 08/22/2023 9:46 AM CDT Tissue (Gastric/Stomach biopsy) 08/22/2023 9:47 AM CDT Tissue (Esophageal biopsy) 08/22/2023 9:48 AM CDT Tissue (Esophageal biopsy) 08/22/2023 9:49 AM CDT Narrative PATHOLOGY [facility] - 08/27/2023 3:22 PM CDT EPIC results best viewed via link to PDF [facility] [place] [address] Note to Patients: This report may contain a detailed description of human tissue sent by a health care provider to the laboratory for pathologic evaluation. The content of this report is essential for diagnosis and may provide important critical findings. This information may be unfamiliar to patients to review without a medical professional present. It is advised that the patient review this report in the presence of a health care provider who can answer questions and explain the details. SURGICAL PATHOLOGY REPORT FINAL Patient Name: ?? LAVELLE REYES Gender: ??M : ??2000 (Age: 23) Address: ??[address], [place], [place] ??[address] Hospital #: ??[id number] Taken:08/22/2023 Received:08/22/2023 Reported: 08/27/2023 Patient Type: BWC EP SAME Client ?[facility] Service: Gastro Location: Physician(s): ??Darcy Rodriguez Dr, M.D. Diagnosis: A. ??Duodenum biops r/o eosinophilia: ?? - Focal active (neutrophilic) inflammation) - Mild eosinophilia; see comment ?? B. ??Random gastric biopsy r/o eosinophilia: - Antral and oxyntic mucosa with chemical/reactive gastropathy and mild eosinophilia; see comment - No H. pylori organisms are identified by H&E examination ?? C. ??Distal Esophagus distal r/o eosinophilia: ?? - Squamous mucosa with increased intraepithelial eosinophils (up to > 100 per HPF) and reactive epithelial changes consistent with eosinophilic esophagitis - No fungal organisms are identified by GMS ?? D. ??Proximal Esophagus biopsy r/o eosinophilia: ?? - Squamous mucosa with increased intraepithelial eosinophils (up to 40 per HPF) and reactive epithelial changes consistent with eosinophilic esophagitis - Focal/minimal neutrophilic inflammation xl08/27/2023 15:22 By this signature, I attest that the above diagnosis is based upon my personal examination of the slides(and/or other material indicated in the diagnosis). Diana Henao MD Report Electronically Reviewed and Signed Out By ??Diana Henao MD 08/27/2023 15:22:24 Diagnosis Comment A, B. Slightly increased number of eosinophils are noted in the lamina propria, but they are not accompanied by significant epithelial injury. The degree of eosinophilia is within the changes in the duodenum and stomach in patients with eosinophilic esophagitis. There is no overt evidence of eosinophilic duodenitis or gastritis. History: The patient is a 23-year-old man with eosinophilic esophagitis dyspepsia. ??Operative procedure: ??EGD. Specimen(s) Received: A: Duodenum biops r/o eosinophilia B: Random gastric biopsy r/o eosinophilia C: Distal Esophagus distal r/o eosinophilia D: Proximal Esophagus biopsy r/o eosinophilia Gross Description: Received in four formalin jars labeled with the patient's identifiers. A. ??Labeled duodenum biopsy rule out eosinophilia are two irregular tissue fragment(s) (measuring 0.4 x 0.2 x 0.1 cm in aggregate. ??Stained with eosin). ?? Labeled A1. Jar 0. B. ??Labeled random gastric biopsy rule out eosinophilia are multiple irregular tissue fragment(s) (measuring 1.6 x 0.2 x 0.1 cm in aggregate. ??Stained with eosin). ?? Labeled B1. Jar 0. C. ??Labeled distal esophagus distal rule out eosinophilia are two irregular tissue fragment(s) (measuring 0.6 x 0.2 x 0.1 cm in aggregate. ??Stained with eosin). ?? Labeled C1. Jar 0. D. ??Labeled proximal esophagus biopsy rule out eosinophilia are two irregular tissue fragment(s) (measuring 0.6 x 0.2 x 0.1 cm in aggregate. ??Stained with eosin). ?? Labeled D1. Jar 0. ?? cnewho/08/22/2023 11:25 PA(s): Judi Miles, AUDRA, CT (ASCP)CM By this signature, I attest that the above diagnosis is based upon my personal examination of the slides(and/or other material). Addenda/Procedures Microscopic slide review and interpretation for this case was performed at [facility], Department of Surgical Pathology, [address] [facility] [place] [place] [id number], ??[place], [place] ??[address] ?? CLIA # [id number] The performance characteristics of some immunohistochemical stains, fluorescence in-situ hybridization tests and immunophenotyping by flow cytometry cited in this report (if any) were determined by the Surgical Pathology and Flow Cytometry Departments at [facility] as part of an ongoing advanced quality engineer program and in compliance with federally mandated regulations drawn from the Clinical Laboratory Improvement Act of 1988 (CLIA '88). ??Some of these tests rely on the use of analyte specific reagents and are subject to specific labeling requirements by the US Food and Drug Administration. ??Such diagnostic tests may only be performed in a facility that is certified by the Department of Health and Human Services as a high complexity laboratory under CLIA '88. ??The FDA has determined that such clearance or approval is not necessary. ??This test is used for clinical purposes. ??It should not be regarded as investigational or for research. ??Nevertheless, federal rules concerning the medical use of analyte specific reagents require that the following disclaimer be attached to the report: This test was developed and its performance characteristics determined by the Surgical Pathology and Flow Cytometry Departments of [facility]. ??It has not been cleared or approved by the U. S. Food and Drug Administration. IMAGES AND SCANNED DOCUMENTS, IF INCLUDED, ONLY VIEWABLE IN PDF VERSION OF REPORT us Salvador Linares MD LAB PATHOLOGY ORDERAB LES Final Result PATHOLOGY [facility] [phone] * EGD (08/22/2023 9:31 AM CDT) Anatomical Region Laterality Modality Other Narrative Procedure Note Salvador Linares MD - 08/22/2023 9:31 AM CDT ENDOSCOPY LAB Patient Name: Lavelle Reyes Procedure Date: 08/22/2023 9:31 AM Date of : 2000 Admit Type: Outpatient Age: 23 Gender: Male Attending MD: Katiana Linares M.D. [facility]: [facility] 03 Note Status: Finalized Procedure: Upper GI endoscopy Indications: Follow-up of eosinophilic esophagitis, incomplete response to PPI and topical corticosteroids Providers: Katiana Linares M.D. Referring MD: Yvette Nash M.D. Medicines: Monitored Anesthesia Care Complications: No immediate complications. Estimated Blood Loss: Estimated blood loss was minimal. Procedure: Pre-Anesthesia Assessment: - Immediately prior to administration ofmedications, the patient was re-assessed for adequacy to receive sedatives. After obtaining informed consent, the endoscope was passed under direct vision. Throughout theprocedure, the patient's blood pressure, pulse, and oxygen saturations were monitored continuously. The [id number] was introduced through the mouth,and advanced to the second part of duodenum. The upperGI endoscopy was accomplished without difficulty. The patient tolerated the procedure well. Findings: Mucosal changes including ringed esophagus, longitudinal furrows and white plaques were found in the entire esophagus. Esophageal findings were graded using the Eosinophilic Esophagitis Endoscopic Reference Score (EoE-EREFS) as: Edema Grade 1 Present (decreased clarity or absence of vascular markings), Rings Grade 1 Mild (subtle circumferential ridges seen on esophageal distension), Exudates Grade1 Mild (scattered white lesions involving less than 10 percent of the esophageal surface area), Furrows Grade 1 Present (vertical lineswith or without visible depth) and Stricture none (no stricture found). Biopsies were obtained from the proximal and distal esophagus withcold forceps for histology of suspected eosinophilic esophagitis. Diffuse mildly erythematous mucosa was found in the gastric body andin the gastric antrum. Biopsies were taken with a cold forceps for histology. Patchy mildly erythematous mucosa was found in the duodenal bulb andin the second portion of the duodenum. Biopsies were taken with a cold forceps for histology. Impression: - Esophageal mucosal changes consistent with eosinophilic esophagitis. Biopsied. - Erythematous mucosa in the gastric body andantrum. Biopsied. - Erythematous duodenopathy. Biopsied. Recommendation: - Await pathology results. If eosinophil countsremain high, dupilumab will be an option. Continue present medications for now. Electronically signed by Katiana Linares MD Katiana Linares M.D. 08/22/2023 9:54:00 AM Number of Addenda: 0 Note Initiated On: 08/22/2023 9:31 AM us Salvador Linares MD ENDOSCOPY PROCEDURES Final Result documented in this encounter Visit Diagnoses Diagnosis Eosinophilic esophagitis Dyspepsia Dyspepsia and other specified disorders of function of stomach Eosinophilic esophagitis Dyspepsia Dyspepsia and other specified disorders of function of stomach documented in this encounter Admitting Diagnoses Diagnosis Eosinophilic esophagitis Dyspepsia Dyspepsia and other specified disorders of function of stomach documented in this encounter Administered Medications Inactive Administered Medications - up to 3 most recent administrations Medication Order MAR Action Action Date Dose Rate Site famotidine (PEPCID) injection 20 mg 20 mg, intravenous, Administer over 2 Minutes, Once, On Antoinette 08/22/23 at 0915, For 1 dose, Pre-Op Given 08/22/2023 8:58 AM CDT 20 mg ondansetron (ZOFRAN) injection 4 mg 4 mg, intravenous, Administer over 2 Minutes, Every 6 hours PRN, nausea, vomiting, Starting on Antoinette 08/22/23 at 0843, Pre-Procedure (GI) ondansetron (ZOFRAN) injection 4 mg 4 mg, intravenous, Administer over 2 Minutes, Once, On Antoinette 08/22/23 at 0915, For 1 dose, Pre-Op Given 08/22/2023 8:58 AM CDT 4 mg sodium chloride 0.9% flush 0.5-20 mL 0.5-20 mL, intra-catheter, As needed, line care, Starting on Antoinette 08/22/23 at 0843, Pre-Procedure (GI), Flush volume based on line type and size. Flush before and after each use. , Indications: FlushingIndications:Flushing sodium chloride 0.9% infusion 30 mL/hr, intravenous, Continuous, Starting on Antoinette 08/22/23 at 0915, Pre-Procedure (GI) Restarted 08/22/2023 9:50 AM CDT Rate/Dose Verify 08/22/2023 9:39 AM CDT 30 mL/h r Restarted 08/22/2023 9:11 AM CDT documented in this encounter Historical Medications * This list may reflect changes made after this encounter. albuterol HFA (PROVENTIL HFA,VENTOLIN HFA,PROAIR HFA) 90 mcg/actuation inhaler INHALE 2 PUFFS BY MOUTH EVERY 4 TO 6 HOURS NEEDED FOR COUGH OR WHEEZING OR SHORTNESS OF BREATH 05/13/2023 added in this encounter Active and Recently Administered Medications Times are shown in CDT. Scheduled Medication Order 08/20/2023 08/21/2023 08/22/2023 famotidine (PEPCID) injection 20 mg (COMPLETED) 20 mg, intravenous, Administer over 2 Minutes, Once, On Antoinette 08/22/23 at 0915, For 1 dose, Pre-Op 0858 (Given - Provid er: Johnna Kowalski RN) ondansetron (ZOFRAN) injection 4 mg (COMPLETED) 4 mg, intravenous, Administer over 2 Minutes, Once, On Antoinette 08/22/23 at 0915, For 1 dose, Pre-Op 0858 (Given - Provid er: Johnna Kowalski RN) Continuous Medication Order 08/20/2023 08/21/2023 08/22/2023 sodium chloride 0.9% infusion 30 mL/hr, intravenous, Continuous, Starting on Antoinette 08/22/23 at 0915, Pre-Procedure (GI) 0857 (New Bag - Prov ider: Johnna Kowalski RN)0910 (Paused - Provider: Mignon De Guzman CRNA - Comment: Switch to gravity)0911 (Restarted - Provider: Mignon De Guzman CRNA)0939 (Rate/Dose Verify - Provider: Mignon De Guzman CRNA)0949 (Paused - Provider: Mignon De Guzman CRNA - Comment: Switch to gravity)0950 (Restarted - Provider: Mignon De Guzman CRNA)1028 (Stopped - Provider: Faith Fontenot RN) PRN Medication Order 08/20/2023 08/21/2023 08/22/2023 ondansetron (ZOFRAN) injection 4 mg 4 mg, intravenous, Administer over 2 Minutes, Every 6 hours PRN, nausea, vomiting, Starting on Antoinette 08/22/23 at 0843, Pre-Procedure (GI) sodium chloride 0.9% flush 0.5-20 mL 0.5-20 mL, intra-catheter, As needed, line care, Starting on Antoinette 08/22/23 at 0843, Pre-Procedure (GI), Flush volume based on line type and size. Flush before and after each use. , Indications: Flushing documented in this encounter Orders Medications Ordered That Agustin ht Not Have Been Administered Count Last Ordered Date First Ordered Date ondansetron (ZOFRAN) injection 4 mg 1 08/21 sodium chloride 0.9% flush 0.5-20 mL 1 08/09 documented in this encounter Care Teams [employer] Relationship Specialty Start Date End Date Yvette Nash MD PCP - General Family Medicine 11/21/22 Yvette Nash MD Family Medicine 11/21/22 documented as of this encounter
--- OUTSIDE RECORDS SUMMARY | 2024-03-21 22:23 | XMS_ITS | Encounter Summary ---
Author Organization [facility] Healthcare Address [address] [place] [address] Care Team Providers Care Deputy Fire Marshal Name Role Phone Yvette Nash MD Primary Care Provider [phone] Yvette Nash MD Unavailable Reason for Visit * Auth/Cert (Routine) Specialty Diagnoses / Procedures Referred By Leonard gonzalez Referred To Contact Diagnoses Eosinophilic esophagitis Dyspepsia Eosinophilic esophagitis [K20.0] Dyspepsia [R10.13] Procedures MA ESOPHAGOGASTRODUODENOSCOPY TRANSORAL DIAGNOSTIC EGD WITH BX Referral ID Status Reason Start Date Expiration Date Visits Re quested Visits Authorized [id number] 1 1 Encounter Details Date Type Department Care Team (Latest Contact Info) Description 08/22/2023 8:16 AM CDT - 08/22/2023 10:29 AM CDT Hospital Encounter [facility] [address] [place] [id number] Salvador Linares MD [address] [facility] [address] [place], [place] [id number] Eosinophilic esophagitis; Dyspepsia Discharge Disposition: Discharge to home or self care Social History Tobacco Use Types Packs/Day Years [...] on file Legal 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 Gender Identity Not on file Sexual Orientation Not on file documented as of this encounter Last Filed Vital Signs Vital Sign Reading Time Taken Comments Blood Pressure 121/67 08/22/2023 10:20 AM CDT Pulse 72 08/22/2023 10:20 AM CDT Temperature 36.3 ??C (97.3 ??F) 08/22/2023 10:00 AM C DT Respiratory Rate 20 08/22/2023 10:20 AM CDT Oxygen Saturation 98% 08/22/2023 10:20 AM CDT Inhaled Oxygen Concentration - - [...] by mouth daily 30 capsule 3 06/18/2023 Flovent HFA 220 mcg/actuation inhaler INHALE 2 [...] NEEDED FOR NAUSEA- FIRST LINE 07/31/22 Yes Sparkle Dee MD pantoprazole DR (PROTONIX) 40 mg EC tablet Take 1 tablet (40 mg total) by mouth 2 (two) times a day07/31/22 Yes Sparkle Dee MD albuterol HFA (PROVENTIL HFA,VENTOLIN HFA,PROAIR HFA) [...] 129/81 Pulse: 84 65 68 Resp: 24 01 21 Temp: 36.3 ??C (97.3 ??F) TempSrc: Temporal [...] Male Attending MD: Katiana Linares M.D. Room: [facility] ENDOSCOPY ROOM 03 Note Status: Finalized Procedure: [...] and oxygen saturations were monitored continuously. The [id number] was introduced through the mouth, and advanced [...] biopsy) 08/22/2023 9:49 AM CDT Narrative PATHOLOGY W - 08/27/2023 3:22 PM CDT EPIC results best viewed via link to PDF [facility] [place] [address] Note to Patients: This report may contain [...] Gender: ??M : ??2000 (Age: 23) Address: ?? [place], [place] ??[address] Hospital #: ??[id number] Taken:08/22/2023 Received:08/22/2023 Reported: 08/27/2023 Patient Type: C EP SAME Client ?[facility] Service: Gastro Location: [...] with eosinophilic esophagitis - Focal/minimal neutrophilic inflammation xl/08/27/2023 15:22 By this signature, I attest that [...] D1. Jar 0. ?? cnewho/08/22/2023 11:25 PA(s): AUDRA Lara, CT ([facility])CM By this signature, I attest that the above diagnosis is based upon my personal examination of the slides(and/or other material). Addenda/Procedures Microscopic slide review and interpretation for this case was performed at [facility], Department of Surgical Pathology, [address] [facility] [place] [place] [id number], ??[place], [place] ??[address] ?? CLIA # [id number] The performance characteristics of some immunohistochemical stains, fluorescence in-situ hybridization tests and immunophenotyping by flow cytometry cited in this report (if any) were determined by the Surgical Pathology and Flow Cytometry Departments at [facility] as part of an ongoing manufacturing quality technician program and in compliance with federally mandated [...] Surgical Pathology and Flow Cytometry Departments of [facility]. ??It has not been cleared or approved by the U. S. Food and Drug Administration. IMAGES AND SCANNED DOCUMENTS, IF INCLUDED, ONLY VIEWABLE IN PDF VERSION OF REPORT Salvador Linares MD LAB PATHOLOGY ORDERAB LES Final Result PATHOLOGY [facility] [phone] * EGD (08/22/2023 9:31 AM CDT) Anatomical Region Laterality Modality Other Narrative Procedure Note Salvador Linares MD - 08/22/2023 9:31 AM CDT ENDOSCOPY LAB Patient Name: Lavelle Reyes Procedure Date: 08/22/2023 9:31 AM Date of : 2000 Admit Type: Outpatient Age: 23 Gender: Male Attending MD: Katiana Linares M.D. Room: [facility] ENDOSCOPY RO[facility] 03 Note Status: Finalized Procedure: [...] and oxygen saturations were monitored continuously. The [id number] was introduced through the mouth,and advanced to [...] Pre-Op 0858 (Given - Provid er: Johnna Kowalski, MARGARET) ondansetron (ZOFRAN) injection 4 mg (COMPLETED) 4 [...] 08/09 documented in this encounter Care Teams Deputy Fire Marshal Relationship Specialty Start Date End Date Yvette Nash MD PCP - General Family Medicine 11/21/22 Yvette Nash MD Family Medicine 11/21/22 documented as of this encounter
--- OUTSIDE RECORDS SUMMARY | 2024-03-21 22:23 | XMS_ITS | Encounter Summary ---
Author Organization [facility] Healthcare Address [address] [place] [address] Care Team Providers Care Bunghole Borer Name Role Phone Yvette Nash MD Primary Care Provider Yvette Nash MD Unavailable [phone] Encounter Details Date Type Department Care Team (Latest Contact Info) Description 11/30/2023 12:41 AM CDT - 11/30/2023 11:59 PM CDT Hospital Encounter [address] [address] Viral URI with cough; Non-recurrent acute suppurative otitis media of right ear without spontaneous rupture of tympanic membrane Discharge Disposition: Discharge to home or self [...] on file Legal Sex Male 12:[address] 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 Gender Identity Not on file Sexual Orientation [...] mouth 2 (two) times a day 07/31/2022 amoxicillin (AMOXIL) 875 mg tabletIndications:No n-recurrent acute suppurative otitis media of right ear without spontaneous rupture of tympanic membrane Take 1 tablet (875 mg total) by mouth 2 (two) times a day for 7 days 14 tablet 11/30/2023 4 documented as of this encounter Discharge Disposition Disposition Code Departure Means Destination Discharge to home or self care documented in this encounter Miscellaneous Notes * Result Encounter Note - Laury Whitt MA - 11/30/2023 11:59 PM CDT Attempted to contact patient, mail box is full. Will try again at a later time. documented in this encounter Plan of Treatment Not on file documented as of this encounter Procedures Procedure Name Priority Date/Time Associated Diagnosis Comments THROAT CULTURE Routine 11/30/2023 7:10 PM CDT Viral URI with cough Non-recurrent acute suppurative otitis media of right ear without spontaneous rupture of tympanic membrane documented in this encounter Results * Throat culture Throat (11/30/2023 7:10 PM CDT) Report Final Report: No growth of pathogens. Comment:Testing performed by : [facility], [address] [place]., [address] Throat 11/30/2023 7:10 PM CDT 12/01/2023 5:06 AM CDT Narrative [facility] - 12/02/2023 6:51 AM CDT Testing performed by [facility] ([phone]). us Cindy Jean ETL ANALYST DEVELOPER LAB MICROBIOLOGY - GENERAL ORD ERABLES Final Result [facility] [address] Department [place] [address] documented in this encounter Visit Diagnoses Diagnosis Viral URI with cough Non-recurrent acute suppurative otitis media of right ear without spontaneous rupture of tympanic membrane documented in this encounter Additional Health Concerns Infection Onset Date Last Indicated Resolved Time COVID: Suspected 11/30/2023 11/30/2023 11/30/2023 6:44 PM CDT documented as of this encounter Care Teams Bunghole Borer Relationship Specialty Start Date End Date Yvette Nash MD PCP - General Family Medicine 11/21/22 Yvette Nash MD Family Medicine 11/21/22 documented as of this encounter
--- OUTSIDE RECORDS SUMMARY | 2024-03-21 22:23 | XMS_ITS | Encounter Summary ---
Author Organization [facility] Address [address] [place] [address] Phone Care Team Providers Care Sumo Wrestler Name Role Phone Yvette Nash MD Primary Care Provider Yvette Nash MD Unavailable [phone] Reason for Visit * Consultation (Routine) - Closed Specialty Diagnoses / Procedures Referred By Leonard t Referred To Contact Gastroenterology Diagnoses Eosinophilic esophagitis Jeni Lopes MD [address] [place] [address] Phone: tel: fax: Salvador Linares MD [address] [place] [address] Phone: tel: fax: Referral ID Status Reason Start Date Expiration Date V isits Requested Visits Authorized [id number] Closed Specialty Services Required 11/21/2022 12/21/2023 1 1 Encounter Details Date Type Department Care Team (Late st Contact Info) Description 06/18/2023 10:15 AM CDT Office Visit [facility] Gastroenterology [address] [facility] [address]th [place] [address] [place] [address] Salvador Linares MD [address] [place] [address] Eosinophilic esophagitis (Primary Dx); Dyspepsia; Diarrhea, unspecified type; Eosinophilic gastroenteropathy; Insomnia, unspecified type Social History Tobacco Use Types Packs/Day Years Used Date Smoking Tobacco: Never Smokeless Tobacco: Never Tobacco Cessation:Counseling Given: Not Answered Personal Safety Answer Date Recorded Getting School Help Needed Not on file 03/02 Sex and Gender Information Value Date Recorded Sex Assigned at Not on file 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 Gender Identity Not on file Sexual Orientation Not on file documented as of this encounter Last Filed Vital Signs Vital Sign Reading Time Taken Comments Blood Pressure 126/80 06/18/2023 9:56 AM CDT Pulse 76 06/18/2023 9:56 AM CDT Temperature 36.3 ??C (97.4 ??F) 06/18/2023 9:56 AM CD T Respiratory Rate - - Oxygen Saturation - - Inhaled Oxygen Concentration - - Weight 106.6 kg (235 lb) 06/18/2023 9:56 AM CDT Height 172.7 cm (5' 8 ) 06/18/2023 9:56 AM CDT Body Mass Index 35.73 06/18/2023 9:56 AM CDT documented in this encounter Ordered Prescriptions Prescription Sig Dispense Quantity Refills Last Filled Start Date End Date DULoxetine DR (CYMBALTA) 30 mg capsule Take 1 capsule (30 mg total) by mouth daily 30 capsule 3 06/18/2023 documented in this encounter Progress Notes * Ailyn Stinson RMA - 06/18/2023 10:15 AM CDT Tnaisha Reyes EGD with biopsies Duloxetine 30 mg once a day Katiana Linares MD, FRCP * Adam Dixon MD - 06/18/2023 12:00 AM CDT PATIENT NAME: TANISHA REYES : 2000 ALY: 06/18/2023 HISTORY OF PRESENT ILLNESS: Mr. Tanisha Reyes is a 22-year-old male with past medical history of eosinophilic esophagitis and peripheral eosinophilia, who presents to clinic for evaluation and management of persistent eosinophilic esophagitis and abdominal complaints including intermittent nausea, diarrhea and dyspepsia. He reports first diagnosed with eosinophilic esophagitis in 2011 at the age of 11 following presentation with persistent symptoms of nausea, intermittent vomiting, epigastric abdominal pain and dyspepsia as well as chronic diarrhea. Following diagnosis, he has been managed with twice daily PPI as well asswallowed Flovent 220 mcg 2 puffs once daily in the morning. He has had multiple prior upper endoscopies since that time that have subsequently shown persistence of eosinophils despite adherence to medical therapy. He has previously attempted 6 food elimination diets, however, has not had any improvement of his symptoms. More recently, he has been trying to eliminate gluten from his diet, however, has not yet noticed considerable improvement of his symptoms. He denies any esophageal dysphagia. No prior history of food impactions. He has never had an esophageal stricture and has never requiredundergoing previous dilation. He describes persistent symptoms most days out of the week with approximately 1 good day per week. He describes nausea approximately every other day for which he will take Zofran intermittently which improves his symptoms. He notices intermittent episodes of epigastricabdominal pain. He notices with certain foods and especially spicy foods, he will experience vomiting that occurs suddenly without preceding nausea. These episodes are unpredictable and can occur anyw here from daily to once per week. He is currently continuing to take twice daily PPI with pantoprazole 40 mg once daily, however, he is not currently taking the Flovent due to issues with insurance coverage. He has not previously been on injectable medication or monoclonal antibody related to his symptoms. He has previously undergone extensive evaluation for peripheral eosinophilia with prior upper endoscopies showing not only eosinophilic esophagitis but also eosinophilic duodenitis. He has previously had a bone marrow biopsy done with normal cytogenetics. He has previously undergone multiple rounds of steroids that have been subsequently tapered. He denies other atopic disorders including asthma, eczema, allergic rhinitis, hives, or specifically noted food allergies. Most recent upper endoscopy was performed in October 2022, at which time esophageal biopsies were taken and reported greater than 20 eosinophils per high-powered field. This upper endoscopy was performed while on both Flovent and twice daily PPI. There was noted mild eosinophils in the duodenum as well. He has consistently 3 episodes of diarrhea that he describes as loose stools per day. Denies melenaor hematochezia. He has had prior colonoscopies in the past with random colonic biopsies for investigation of this. Available colonoscopy from 2019 with normal-appearing colon and terminal ileum. Biopsies were taken at that time with no histopathologic abnormalities of the terminal ileum or colon. He does not currently take any antidiarrheals. He has been prescribed amitriptyline 10 mg at bedtimefor insomnia, however, has not noticed considerable improvement of his abdominal symptoms after starting this medication. PAST MEDICAL HISTORY: 1. Eosinophilic esophagitis. 2. Peripheral eosinophilia. 3. Eosinophilic duodenitis. REVIEW OF SYSTEMS: Review of systems otherwise negative, unless stated in the HPI. PAST SURGICAL HISTORY: Patient denies prior surgical history. 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 Drinks approximately 3 alcohol beverages per month. Does not use tobacco. Does not use any illicit drugs including marijuana. PAST FAMILY HISTORY: The patient denies prior family history including colorectal cancer, inflammatory bowel diseases. MEDICATIONS: 1. Amitriptyline 10 mg daily. 2. Bentyl 10 mg as needed for abdominal cramping. 3. Flovent 220 mcg 2 puffs swallowed once daily. 4. Zofran 4 mg every 8 hours as needed for nausea. 5. Pantoprazole 40 mg twice daily. ALLERGIES: REPORTS ALLERGY TO BENADRYL WITH REACTION BEING RESTLESSNESS. PHYSICAL EXAMINATION: VITALS: Blood pressure 126/80, pulse rate of 76, temperature 94.4 degrees Fahrenheit, weight 235 pounds. Patient reports he has been slowly gaining weight over the last several years. GENERAL: Comfortable-appearing male, sitting up in exam chair, in no acute distress. HEAD: Moist mucous membranes. No erythema. No exudates. Eyes nonicteric. NECK: Full range of motion. Supple. No palpable lymphadenopathy. No thyromegaly. CHEST: Clear to auscultation bilaterally. ABDOMEN: Soft, nontender, nondistended. EXTREMITIES: Warm, well perfused. No edema. PSYCH: Normal mood, normal affect. NEURO: Awake, alert, oriented. Normal gait. Fluent speech. ASSESSMENT AND PLAN: 1. Eosinophilic esophagitis. Patient has had histologic diagnosis of eosinophilic esophagitis sincethe age of 11 in 2011, with greater than 100 eos per high-power field. He has been on dual therapy with both b.i.d. PPI as well as swallowed Flovent, however, has not had normalization on multiple repeat serial biopsies. He also has previous involvement of at least the duodenum with eosinophils. As well as ongoing persistent peripheral eosinophilia. Last blood count June 2022 showing 18% eos with an absolute eosinophil count of greater than 2000. No clear colonic involvement based on colonoscopy from 2019. 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 Given that his last upper endoscopy was in October2022, we will first plan on repeating upper endoscopy with random duodenal, random gastric and esophageal biopsies to evaluate for eosinophilic involvement. He will continue on twice daily PPI, but is encouraged to remain off of Flovent prior to investigation with upper endoscopy. He has previouslytrialed food elimination diets without much success. For now, we will encourage him to avoid dairy and can potentially trial a gluten-free diet as well. He may be a candidate for dupilumab in the future pending further evaluation. 2. Dyspepsia. Patient has a suspected underlying functional component in addition to the enteric eosinophil involvement. He has not experienced considerable relief following very low-dose TCA with amitriptyline 10 mg at bedtime, which is prescribed for insomnia. We will transition him instead to dul oxetine 30 mg daily and he can hold the amitriptyline. 3. Diarrhea. Persistent diarrhea since onset of symptoms approximately 10 years prior. Has 3 loose bowel movements a day which may be either related to enteric involvement of his eosinophilia versus an underlying functional bowel disorder complicating his picture. We will start duloxetine as above for symptoms related to pain, which may slow down his bowels as well. He has previously had multiple colonoscopies, last March 2019, which did not show any eosinophil involvement of the terminal ileum or the colon at that time. 4. Insomnia. Patient with chronic insomnia which had previously been controlled with low-dose TCA. Advised that his insomnia may get worse after transitioning to duloxetine. He has been encouraged totake melatonin if his insomnia recurs. He is a filter tank operator and should avoid over-sedation anddaytime sleepiness. He will be seen next for upper endoscopy in the coming weeks. He was encouraged to schedule a follow-up visit in approximately 6 months. ELECTRONICALLY SIGNED - 06/21/2023 09:47 AM Adam Dixon M.D. Fellow I have seen and examined the patient and agree with the findings and plan of care as documented by and/or discussed with Adam Dixon M.D.. ELECTRONICALLY SIGNED - 06/27/2023 10:45 AM Salvador Linares MD, MRCP Professor, Medicine Division of Gastroenterology Director, Fellowship Training Tire Wrapper, Neurogastroenterology Program MKS/CG/sv cc: JENI LOPES MD / / documented in this encounter Plan of Treatment Not on file documented as of this encounter Visit Diagnoses Diagnosis Eosinophilic esophagitis- Primary Dyspepsia Dyspepsia and other specified disorders of function of stomach Diarrhea, unspecified type Eosinophilic gastroenteropathy Unspecified disorder of intestine Insomnia, unspecified type documented in this encounter Orders Outpatient Referral Count Last Ordered Date Fir st Ordered Date AMB REFERRAL TO GASTROENTEROLOGY 1 06/18/19 24 documented in this encounter Care Teams Sumo Wrestler Relationship Specialty Start Date End Date Yvette Nash MD PCP - General Family Medicine 11/21/22 Yvette Nash MD Family Medicine 11/21/22 documented as of this encounter
--- OUTSIDE RECORDS SUMMARY | 2024-03-21 22:23 | XMS_ITS | Encounter Summary ---
Author Organization [facility] Address [address] [place] [address] Phone Care Team Providers Care Putty Patcher Name Role Phone Yvette Nash MD Primary Care Provider Yvette Nash MD Unavailable [phone] Reason for Visit * Reason Onset Date Comments PATHOLOGY RESULTS 09/03/2023 Encounter Details Date Type Department Care Team (Late st Contact Info) Description 09/03/[address] 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 Also has duodenal eosinophilia. Let's get him approved for dupilumab. ----- Message ----- From: Interface, Lab Results In Sent: 08/27/2023 3:23 PM CDT To: Salvador Linares MD documented in this encounter Plan of Treatment Not on file documented as of this encounter Visit Diagnoses Not on filedocumented in this encounter Care Teams Putty Patcher Relationship Specialty Start Date End Date Yvette Nash MD PCP - General Family Medicine 11/21/22 Yvette Nash MD Family Medicine 11/21/22 documented as of this encounter
--- OUTSIDE RECORDS SUMMARY | 2024-03-21 22:23 | XMS_ITS | Referral Summary ---
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 Gender Identity Not on file Sexual Orientation [...] 08/22/2023 8:56 AM CDT Plan of Treatment Not on file Insurance [facility] [id number] Member Subscriber Plan / Payer (Ef fective 2022-Present) Name:Lavelle Michael Member ID:[id number] Relation to Subscriber:Child Name:Alec Maria G Guerrero Subscriber ID:[id number] Date of :1979 (Home) Address: [address] [place] [address] Payer ID:[id number] Type:[employer] HMO/PPO Address: [address] [facility] [address] [facility]3] [id number] Advance Directives For more information, please contact: [phone] * Full Code (Latest Code Status on File) Date Activated Date Inactivated Comments 08/22/2023 8:43 AM 08/22/2023 2:34 PM Care Teams Storage Administrator Relationship Specialty Start Date End Date Yvette Nash MD PCP - General Family Medicine 11/21/22 Yvette Nash MD Family Medicine 11/21/22
--- OUTSIDE RECORDS SUMMARY | 2024-03-21 22:23 | XMS_ITS | Encounter Summary ---
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 * Telephone Encounter - Laury Whitt MA - 12/03/2023 10:25 AM CDT ----- Message from Micaela Dunlap NP sent at 12/02/2023 8:14 AM CDT ----- Please call patient and let him know that throat culture was negative for infection. documented in this encounter Plan of Treatment Not on file documented as of this encounter Visit Diagnoses Not on filedocumented in this encounter Care Teams Compressed Gas Tester Relationship Specialty Start Date End Date Yvette Nash MD PCP - General Family Medicine 11/21/22 Yvette Nash MD Family Medicine 11/21/22 documented as of this encounter
--- OUTSIDE RECORDS SUMMARY | 2024-03-21 22:23 | XMS_ITS | Encounter Summary ---
Author Organization [facility] Healthcare Address [address] [place] [address] Care Team Providers Care Sleeve Baster Name Role Phone Yvette Nash MD Primary Care Provider [phone] Yvette Nash MD Unavailable Reason for Visit * Auth/Cert (Routine) Specialty Diagnoses / Procedures Referred By Leonard gonzalez Referred To Contact Diagnoses Eosinophilic esophagitis Dyspepsia Eosinophilic esophagitis [K20.0] Dyspepsia [R10.13] Procedures CT ESOPHAGOGASTRODUODENOSCOPY TRANSORAL DIAGNOSTIC EGD WITH BX Referral ID Status Reason Start Date Expiration Date Visits Re quested Visits Authorized [id number] 1 1 Encounter Details Date Type Department Care Team (Late st Contact Info) Description 08/22/2023 9:39 AM CDT Anesthesia Event [facility] [address] [place] [address] Clint Tyler MD [address] [facility] [address] [place] [address] Anesthesia Record Procedure Summary Procedure Name Responsible Anesthesiologist Anesthesia Start Time Anesthesia Stop Time ESOPHAGOGASTRODUODENOSCOPY BIOPSY Clint Tyler MD 08/22/23 0939 08/22/23 0958 Events Date Time Event Comment 08/22/2023 0855 0911 AN Equip Check 0939 An Start 0939 An Start Data 0939 In Room 0942 Start Supplemental O2 0942 Patient Positioned Laterally 0942 An Induction The patient was reevaluated immediately before moderate or deep sedation use and before anesthesia induction. 0944 Proc Start 0944 Anesthesia Ready 0950 Proc Fin 0952 an stop data 0955 Out of Room 0958 Handoff to RN I completed my handoff to the receiving nurse during which we: 1. Patient identified 2. Responsible provider identified 3. Pertinent medical history reviewed 4. Procedure type and surgical course discussed 5. Intraoperative anesthetic management and any significant issues discussed 6. Expectations and concerns for postop period discussed 7. Questions solicited from receiving nurse 8. Patient disposition at the time of handoff: No value filed. 0958 An Stop Meds Name Total propofol 300 mg Lidocaine IV 2 % 5 mL sodium chloride 0.9% infusion 300 mL * Agents Name O2 N2O Air * Blood No blood administrations on file. 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 ENDOSCOPY ROOM 03 / [facility] ENDOSCOPY Anesthesia Start: 938 Anesthesia Stop: 957 Procedure: ESOPHAGOGASTRODUODENOSCOPY BIOPSY Diagnosis: Eosinophilic esophagitis Dyspepsia (Eosinophilic esophagitis [K20.0]) (Dyspepsia [R10.13]) Providers: Salvador Linares MD Responsible Provider: Clint Tyler MD Anesthesia Type: general ASA Status: 3 Anesthesia Type: general Last vitals BP 121/67 Pulse 72 Temp 36.3 ??C (97.3 ??F) Resp 20 SpO2 98% Anesthesia Post Evaluation Patient location during evaluation: PACU Patient participation: complete - patient participated Level of consciousness: fully awake Pain score: 0 Pain management: adequate Airway patency: adequate Evidence of recall: no Cardiovascular status: hemodynamically stable and acceptable Respiratory status: acceptable and room air Hydration status: acceptable Pt is: normothermic Nausea/Vomiting status: none No notable events documented. * Anesthesia Preprocedure Evaluation - Clint Tyler MD - 08/22/2023 8:55 AM CDT Images from the original note were not included. Anesthesia Evaluation Lavelle Michael is a 23 y.o. 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 Last Dose Start Date End Date Provider albuterol HFA (PROVENTIL HFA,VENTOLIN HFA,PROAIR HFA) 90 mcg/actuation inhaler -- 05/13/23 -- ProviderSparkle MD amitriptyline (ELAVIL) 10 mg tablet -- 06/28/22 -- Sparkle Dee MD dicyclomine (BENTYL) 10 mg capsule -- 07/31/22 -- ProviderSparkle MD DULoxetine DR (CYMBALTA) 30 mg capsule -- 06/18/23 06/17/24 Salvador Linares MD Take 1 capsule (30 mg total) by mouth daily Flovent HFA 220 mcg/actuation inhaler -- 07/31/22 -- Sparkle Dee MD ondansetron ODT (ZOFRAN-ODT) 4 mg disintegrating tablet -- 07/31/22 -- Sparkle Dee MD pantoprazole (PROTONIX) 40 mg EC tablet -- 07/31/22 -- Sparkle Dee MD Current Facility-Administered Medications: famotidine (PEPCID) injection 20 mg, 20 mg, intravenous, Once ondansetron (ZOFRAN) injection 4 mg, 4 mg, intravenous, Q6H PRN ondansetron (ZOFRAN) injection 4 mg, 4 mg, intravenous, Once sodium chloride 0.9% flush 0.5-20 mL, 0.5-20 mL, intra-catheter, PRN sodium chloride 0.9% infusion, 30 mL/hr, intravenous, Continuous Social History Tobacco Use Smoking Status Never Smokeless Tobacco Never Alcohol Use: Unknown (08/22/2023) AUDIT-C Frequency of Alcohol Consumption: 2-4 times a month Average Number of Drinks: Not on file Frequency of Binge Drinking: Not on file Substance and Sexual Activity Drug Use Never No family history on file. There were no vitals filed for this visit. PT: No results found for requested labs within last 30 days. INR: No results found for requested labs within last 30 days. APTT: No results found for requested labs within last 30 days. Hgb A1C: No results found for requested labs within last 30 days. CBC RBC: No results found for requested labs within last 30 days. RDW: No results found for requested labs within last 30 days. MCHC: No results found for requested labs within last 30 days. MCH: No results found for requested labs within last 30 days. MCV: No results found for requested labs within last 30 days. Hct: No results found for requested labs within last 30 days. Hgb: No results found for requested labs within last 30 days. WBC: No results found for requested labs within last 30 days. MPV: No results found for requested labs within last 30 days. Platelets: No results found for requested labs within last 30 days. RDW CV: No results found for requested labs within last 30 days. RDW Sd: No results found for requested labs within last 30 days. BMP Glucose: No results found for requested labs within last 30 days. Calcium: No results found for requested labs within last 30 days. Sodium: No results found for requested labs within last 30 days. Potassium: No results found for requested labs within last 30 days. CO2: No results found for requested labs within last 30 days. Chloride: No results found for requested labs within last 30 days. BUN: No results found for requested labs within last 30 days. Creatinine: No results found for requested labs within last 30 days. STOP-Bang Total Score: 2 DOS Physical Exam Medical history, medications, and allergies reviewed. Attestation: This PAT evaluation Airway Exam: Mallampati: III Cervical ROM: FROM Cardiovascular Exam: Rate: regular Rhythm: regular Pulmonary Exam: LCTA, bilat Dental Exam: Braces Anesthesia Plan ASA 3 My patient is approved for the Anesthesia Controlled Medication protocol when under care of a RESEARCH GEOLOGIST Planned anesthesia: General Informed Consent: Anesthesia plan and risks discussed with patient. Consent and Attending signature: I and/or my designee have discussed the anesthesia plan, benefits, possible alternatives, parental presence at time of induction (if indicated), and clinically relevant risks that may include dental injury, unintentional awareness, and/or other complications. The patient and/or parent/legal guardian understand, and agree to proceed. All questions answered. documented in this encounter Plan of Treatment Not on file documented as of this encounter Visit Diagnoses Not on filedocumented in this encounter Administered Medications Inactive Administered Medications - up to 3 most recent administrations Medication Order MAR Action Action Date Dose Rate Site lidocaine (XYLOCAINE) 20 mg/mL (2 %) injection intravenous, As needed, Starting on Antoinette 08/22/23 at 0942, Anesthesia Intra-op, Indications: Administration of Local AnesthesiaIndications:Administratio n of Local Anesthesia Given 08/22/2023 9:42 AM CDT 5 mL propofoL (DIPRIVAN) 10 mg/mL IV intravenous, As needed, Starting on Antoinette 08/22/23 at 0942, Anesthesia Intra-op Given 08/22/2023 9:47 AM CDT 50 mg Given 08/22/2023 9:45 AM CDT 50 mg Given 08/22/2023 9:44 AM CDT 50 mg sodium chloride 0.9% infusion 30 mL/hr, intravenous, Continuous, Starting on Antoinette 08/22/23 at 0915, Pre-Procedure (GI) Restarted 08/22/2023 9:50 AM CDT Rate/Dose Verify 08/22/2023 9:39 AM CDT 30 mL/h r Restarted 08/22/2023 9:11 AM CDT documented in this encounter Care Teams Sleeve Baster Relationship Specialty Start Date End Date Yvette Nash MD PCP - General Family Medicine 11/21/22 Yvette Nash MD Family Medicine 11/21/22 documented as of this encounter
--- OUTSIDE RECORDS SUMMARY | 2024-03-21 22:23 | XMS_ITS | Encounter Summary ---
Author Organization [facility] Address [address] [place] [address] Phone Care Team Providers Care Gathering Machine Feeder Name Role Phone Yvette Davalos MD Primary Care Provider Yvette Davalos MD Unavailable [phone] Encounter Details Date Type Department Care Team (Late st Contact Info) Description 06/18/2023 Telephone [facility] [address] 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 Gender Identity Not on file Sexual Orientation Not on file documented as of this encounter Miscellaneous Notes * Telephone Encounter - Ailyn Stinson RMA - 06/18/2023 3:57 PM CDT PROCEDURE Type: EGD WITH BX Indication: EoE Referring Physician: Vernon DAVALOS Date Referred: CLINIC VISIT 06-18-23 CLINICAL ASSESSMENT [x] Clinical assessment obtained via phone call with patient []COVID/Flu Screening questions []BMI>45, Weight >350 lbs [] Patient had GI procedure/CPAP clinic/GI clinic <30 days (if Yes, no medical screening questions needed unless new clinical issues in last 30 days) Medical screening questions: BMI/Weight: NA CARDIOVASCULAR: None RESPIRATORY/LUNG: None RENAL/LIVER/GI: None GI: Previous COLON or EGD: Hx of Polyps, Chavarria, Barretts:no Hx of Constipation:N/A Have you ever required a two day prep? N/A BLEEDING/CLOTTING: None NEUROLOGICAL: None ENDOCRINE: None PRIOR PROCEDURE ISSUES: None AGRICULTURAL CONSULTANT/: NA IMPLANTS.: None PSYCH/Behavioral Hx: N/A SC has limited security Notes: PACEMAKER/ICD Y/N: No/NA Device info: Last documented device check: Any shocks since last cards visit (if yes must see cardiology for procedure clearance): DIALYSIS Y/N: No/NA []HD- Schedule on non-HD day, see protocol []PD- Drain PD fluid AM of procedure, if colonoscopy order AB ppx, see protocol REGULAR DIABETIC MEDS Y/N: No/NA []Yes- Discuss diabetes medication management with prescribing physician GLP DIABETIC MEDICATIONS Y/N: No/NA None Educated Patient on the need to hold Medication, and to contact their ordering MD or Air Conditioning Coil Assembler about bridging medication for procedure. N/A [] Yes - Letter Sent to Ordering Physician/Air Conditioning Coil Assembler Date sent: Hold instructions: GLP Weight Loss Medications N/A Educated Patient on the need to hold Medication, and to contact their ordering MD or Air Conditioning Coil Assembler about bridging medication for procedure. Y/N: No/NA None [] Yes - Letter Sent to Ordering Physician/Air Conditioning Coil Assembler Hold older Instructions: BLOOD THINNERS/ANTICOAG/ANTIPLATELET (BESIDES ASA) Medication: NONE Physician contacted for hold order/date sent: Hold order Method sent: Date hold received: Hold instructions: CONTINUE ASPIRIN INFORMATION REQUESTED []Imaging: []Medical Progress Note/H&P []Medication list []Other: PATIENT OPTIMIZATION []Physician reviewing escalation: []CPAP: Date scheduled: Outcome : [] Location limitations: Scheduling Scheduling location limitations: Account Services Representative needed [] NA Language: POA [] NA Name: Required extended education:no SPECIAL PROCEDURE INSTRUCTIONS Scheduling Notes Procedure information Date of procedure: 08-22-23 Time of procedure: 9:30 AM Arrival time: 8:30 AM Location: [place] Proceduralist: JOSE Torres Method of instructions: Mailed Copy [x]Confirmation of ride/lever operator []Post anesthesia restrictions given [x]NPO Instructions: [x]Diet Instructions: []Take non-blood thinner prescription meds that morning []Bring med list, photo ID, insurance card, no valuables []Bring COVID vaccination card (if vaccinated) Bowel Prep Prep prescribed: NA Method of Bowel Prep (RX): NA documented in this encounter Plan of Treatment Not on file documented as of this encounter Visit Diagnoses Not on filedocumented in this encounter Care Teams Gathering Machine Feeder Relationship Specialty Start Date End Date Yvette Davalos MD PCP - General Family Medicine 11/21/22 Yvette Davalos MD Family Medicine 11/21/22 documented as of this encounter
--- OUTSIDE RECORDS SUMMARY | 2024-03-21 22:24 | XMS_ITS | Encounter Summary ---
Author Organization [facility] Address [address] [facility] [address] [place] [id number] Care Team Providers Care Lens Assorter Name Role Phone Unknown, Notinfile Primary Care Provider Unavail able Reason for Visit * Reason Comments Sore Throat Onset yesterday morn ing, sore throat, some nasal drainage, no other sx, no known exp, OTC Ibuprofen Encounter Details Date Type Department Care Team (Late st Contact Info) Description 04/04/2022 5:30 PM DUPLICATE MAKER Office Visit [facility] [address] [place] [phone] Micaela Dunlap, DEBBIE [address] [place] [address] Strep pharyngitis (Primary Dx); Sore throat Social History Tobacco Use Types Packs/Day Years Used Date Smoking Tobacco: Never Smokeless Tobacco: Never Tobacco Cessation:Counseling Given: Not Answered Sex and Gender Information Value Date Recorded Sex Assigned at Not on file 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 Gender Identity Not on file Sexual Orientation Not on file documented as of this encounter Last Filed Vital Signs Vital Sign Reading Time Taken Comments Blood Pressure 134/70 04/04/2022 5:36 PM DUPLICATE MAKER Pulse 112 04/04/2022 5:36 PM DUPLICATE MAKER Temperature 36.8 ??C (98.3 ??F) 04/04/2022 5:36 PM CS T Respiratory Rate 16 04/04/2022 5:36 PM DUPLICATE MAKER Oxygen Saturation 97% 04/04/2022 5:36 PM DUPLICATE MAKER Inhaled Oxygen Concentration - - Weight 99.3 kg (219 lb) 04/04/2022 5:36 PM DUPLICATE MAKER Height 172.7 cm (5' 8 ) 04/04/2022 5:36 PM DUPLICATE MAKER Body Mass Index 33.3 04/04/2022 5:36 PM DUPLICATE MAKER documented in this encounter Patient Instructions * Patient Instructions* Micaela Dunlap NP - 04/04/2022 5:30 PM DUPLICATE MAKER Complete antibiotic as prescribed Tylenol or Motrin for fever/pain Stay hydrated- Drinking fluids is more important than eating Throat lozenges or sprays usually do not help. Follow up with your PCP if you [...] salt water Avoid spicy or citrus foods ICATE MAKER documented in this encounter Ordered Prescriptions Prescription Sig Dispense Quantity Refills Last Filled Start Date End Date amoxicillin 500 mg tablet/capsuleIndic ations:Strep pharyngitis Take 1 tablet/caps ule (500 mg total) by mouth 2 (two) times a day for 10 days 20 tablet/capsule 04/04/2022 04/14/2022 documented in this encounter Progress Notes * Micaela Dunlap NP - 04/04/2022 5:30 PM CST Images from the original note were not included. Subjective/Objective Patient ID: Lavelle Michael is a 21 y.o. male. Chief Complaint Sore Throat (Onset yesterday morning, sore throat, some nasal drainage, no other sx, no known exp, OTC Ibuprofen) Patient presents to [facility] care for sore throat and nasal drainage x2 days, He has taken OTC ibuprofen for his symptoms. He denies any exposure to strep, covid, or flu. Sore Throat Pertinent negatives include no congestion, coughing, diarrhea, ear discharge, ear pain, headaches, shortness of breath or vomiting. Review of Systems Constitutional: Negative for activity change, appetite change, fatigue and fever. HENT: Positive for rhinorrhea and sore throat. Negative for congestion, ear discharge, ear pain, postnasal drip and sinus pressure. Eyes: Negative for discharge. [...] tenderness or frontal sinus tenderness. Mouth/Throat: Lips: [place]. Mouth: Mucous membranes are moist. Pharynx: Oropharynx [...] Thought content normal. Judgment: Judgment normal. Vitals: 04/04/22 1736 BP: 134/70 Pulse: 112 Resp: 16 Temp: 36.8 ??C (98.3 ??F) TempSrc: Temporal SpO2: 97% Weight: 99.3 kg (219 lb) Height: 172.7 cm (5' 8 ) Assessment/Plan Antibiotics as prescribed Tylenol?motrin as needed for pain Gargle with warm salt water RTC if symptoms persist ER precautions reviewed Diagnoses and all orders for this visit: Strep pharyngitis (Primary) - amoxicillin 500 mg tablet/capsule; Take 1 tablet/capsule (500 mg total) by mouth 2 (two) times a day for 10 days Sore throat - POCT rapid strep A Recent Results (from the past 4 hour(s)) POCT rapid strep A Collection Time: 04/04/22 5:44 PM Result Value Ref Range Rapid Strep A, POC Positive Patient Education: Disposition Treatment plan including expectations, [...] ask questions, questions answered. Micaela Dunlap NP ICATE MAKER documented in this encounter Plan of Treatment Not on file documented as of this encounter Procedures Procedure Name Priority Date/Time Associated Diagnosis Comments POCT RAPID STREP Routine 04/04/2022 5:44 PM DUPLICATE MAKER Sore throat documented in this encounter Results * POCT rapid strep A (04/04/2022 5:44 PM DUPLICATE MAKER) Rapid Strep A, POC Positive Swab 04/04/2022 5:44 PM DUPLICATE MAKER Micaela Dunlap NP POINT OF CARE TEST ORDERABLES Fi nal Result documented in this encounter Visit Diagnoses Diagnosis Strep pharyngitis- Primary Sore throat Acute pharyngitis documented in this encounter Care Teams Lens Assorter Relationship Specialty Start Date End Date Unknown, Notinfile PCP - General 04/04/22 11/20/22 documented as of this encounter
--- OUTSIDE RECORDS SUMMARY | 2024-03-21 22:24 | XMS_ITS | Encounter Summary ---
Author Organization [facility] Healthcare Address [address] [place] [address] Care Team Providers Care Relationship Consultant Name Role Phone Unavailable Primary Care Provider Unavailabl e Encounter Details Date Type Department Care Team (Latest Contact Info) Description 07/25/2012 6:21 AM CDT - 07/25/2012 11:59 PM CDT Hospital Encounter [facility] CLINCONV Foreign body in larynx; Foreign body accidentally entering other orifice; Place of occurrence, home Social History Tobacco Use Types Packs/Day Years Used Date Smoking Tobacco: Never Assessed Sex and Gender Information Value Date Recorded Sex Assigned at Not on file 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
== END 2024-03-14 15:05 | disposition home or self-care (01) ==
PROVIDERS: Emergency Provider Nurse Practitioner; PCP Physician Assistant
DX: J40 Bronchitis, not specified as acute or chronic (principal); R09.82 Postnasal drip; K20.0 Eosinophilic esophagitis
CPT/HCPCS: 99203; G0463